=== PATIENT | female | born 1965 | race Caucasian/White ===

== ENCOUNTER → 2016-08-29 | Outpatient (CLI) | payer OTHER ==
--- NOTE | 2016-08-29 14:57 | US ---
EXAMINATION TYPE: US gallbladder DATE OF EXAM: 08/29/2016 2:30 PM COMPARISON: CT in pacs October 20, 2009. CT chest June 01, 2016. CLINICAL HISTORY: Intermittent RUQ and back pain x 4 months, occasional N/V. EXAM MEASUREMENTS: Liver Length: 15.0cm Gallbladder Wall: 0.2cm CBD: 0.3cm Right Kidney: 9.7 x 3.8 x 4.5cm TECHNOLOGIST IMPRESSION: Pancreas: visualized portions wnl, body and tail obscured by overlying bowel gas Liver: 1.5 x 1.2 x 1.6cm hyperechoic area anterior right lobe with minimal vascularity possible david ngioma though not definitively seen on old CTs Gallbladder: Small shadowing mobile gallstones or gallbladder sludge. Evidence for sonographic Bernard's sign: yes CBD: wnl Right Kidney: wnl IMPRESSION: 1. Small stones and/or gallbladder sludge without convincing secondary ultrasound evidence for acute cholecystitis however in patient with right upper quadrant pain and positive sonographic Bernard sign cannot be entirely excluded. Consider HIDA scan correlation. 2. There is 1.6 cm hyperechoic lesion right hepatic lobe, suspect probable hemangioma, consider follo w-up liver protocol contrast enhanced CT or MRI to confirm.
== END ==
LOC: RADUSWWP 13:53
PROVIDERS: ATTEND Surgery Plastic and Reconstructive Surgery
DX: K80.80 Other cholelithiasis without obstruction (principal); K76.9 Liver disease, unspecified
CPT/HCPCS: 76705

== ENCOUNTER → 2016-09-06 | Outpatient (CLI) | payer OTHER ==
--- NOTE | 2016-09-17 19:48 | P.PN ---
Progress Note - Text DATE OF SERVICE: 09/06/2016 CHIEF COMPLAINT: Follow-up sleeve gastrectomy. HISTORY OF PRESENT ILLNESS: Josefina Bird is a 50-year-old female who is status post sleeve gastrectomy on 04/05/2016. She is approximately 5 months out. Upon her last evaluation she came in with presenting weight of 160 pounds. Today she comes in weighing 157 pounds. Prior to surgery she had weighed 201 pounds. Today she comes in with a 44 pound weight loss. [place] body weight of 135 pounds. Body mass index reduced from 36.8 down to 28.8. Percent excess weight loss achieved is already 67%. She reports troubles with pain along the right upper quadrant including chronic nausea. She is planning a trip in the next one to two weeks in terms of cruise. Separately, she is also due for colonoscopy with multiple colon polyps. Now she presents for further evaluation and management. She is stable with chronic obstructive pulmonary disease including osteoarthritis of the joints and lower back. PAST MEDICAL HISTORY: 1. Obstructive sleep apnea. 2. Gastroesophageal reflux disease. 3. History of hiatal hernia. 4. Carpal tunnel syndrome. 5. Diabetes type 2. 6. Hypothyroidism. 7. Chronic obstructive pulmonary disease. 8. Anxiety. 9. Colon polyps. 10. Sleep apnea. PAST SURGICAL HISTORY: 1. Uterine ablation. 2. Left carpal tunnel release. 3. Bilateral breast reduction. 4. Upper endoscopy. 5. Lower endoscopy. 6. Status post sleeve gastrectomy. MEDICATIONS: 1. Imitrex. 2. Zantac. 3. Omeprazole. 4. Multivitamin. 5. Magnesium oxide. 6. Synthroid. 7. Breo Ellipta. 8. Calcium citrate. 9. Albuterol sulfate. 10. Ventolin nebulizer. 11. Tudorza. 12. Xanax. ALLERGIES: Denies. SOCIAL HISTORY: Former tobacco user. FAMILY HISTORY: Pertinent for morbid obesity in her mother. Also no reports of Crohn's disease or ulcerative colitis. Denies any family history of gastrointestinal cancers. She has a mother who has morbid obesity. REVIEW OF SYSTEMS: CONSTITUTIONAL: [place] body weight for her 5 foot 2 frame is 135 pounds. Highest weight of 201 pound. Initial body mass index of 36.8 down to 28.8. Total weight loss of 44 pounds. Percent excess weight loss of 67%. GASTROINTESTINAL: Still reports gastroesophageal reflux disease including fatty food intolerance. Has intermittent constipation, now controlled. CARDIOVASCULAR: History of hypertension. RESPIRATORY: History of chronic obstructive pulmonary disease. She is still on moderate medications. ENDOCRINE: Resolved diabetes type 2. No reports of hypothyroidism. NEURO: History of migraine headaches. HEENT: Denies any troubles with vision or hearing. GENITOURINARY: History of endometrial ablation. MUSCULOSKELETAL: Reports osteoarthritis of the in the lower back and hips secondary to morbid obesity. NEURO: No reports of stroke or seizure disorders. PSYCH: History of anxiety and depression. HEMATOLOGIC: Denies any easy bruising and bleeding or prior venous thromboembolic event. PHYSICAL EXAM: VITAL SIGNS: 98.3, 75, 147/78, 16, 5 foot 2, 157 pounds. Body mass is 28.8. ABDOMEN: Soft, tenderness noted along the right upper quadrant. No peritonitis. No palpable incisional hernias. MUSCULOSKELETAL: No clubbing, cyanosis, or edema. GENERAL: Well-developed female in no acute distress. HEENT: No sclera icterus. Extraocular movements grossly intact. Moist buccal mucosa. Head is atraumatic, normocephalic. Hears conversational speech. No nasal drainage. NECK: Supple without lymphadenopathy. No JV distention. CHEST: Non-labored respirations and equal bilateral excursions. CARDIOVASCULAR: Regular rate and rhythm. Palpable 2+ radial pulses. NEUROLOGIC: No focal or lateralizing signs. PSYCH: Appropriate affect. Alert and oriented to person, place and time. STUDIES: Ultrasound of the abdomen was reviewed, consistent with gallstones. LABS: Previous bariatric metabolic panel was reviewed. Hemoglobin normal at 13.9. Carbon dioxide is up at 31. Glucose was normal at 97. Hemoglobin A1c was normal at 5%. LDL was slightly elevated at 101. Vitamin A was low at 37. Thiamine deficiency had resolved. Trace elements within normal limits. ASSESSMENT: 1. Morbid obesity due to excess calories. 2. Body mass index reduced from 36.8 down to 28.8. 3. Status post sleeve gastrectomy. 4. History of thiamine deficiency resolved. 5. Vitamin A deficiency. 6. Symptomatic cholelithiasis. 7. Gastroesophageal reflux disease. 8. Personal history of colon polyps. 9. Right upper quadrant abdominal pain. 10. Chronic nausea. PLAN: 1. Recommend laparoscopic cholecystectomy with possible open technique. Benefits and risks were described including bleeding, infection, injury to the biliary tree. 2. Separately, she is also due for colonoscopy for multiple tubular adenomas. I have recommended her completing colonoscopy prior to her cholecystectomy as abdominal gas bloat may be more challenging after her gallbladder surgery. 3. I have gone over food guidelines whereby low fat foods are advised just to minimize any risk for cholecystitis as she is going on her cruise. 4. Vitamin A supplement was written on her behalf. 5. Recommend multivitamins as thiamine deficiency is now resolved.
== END | disposition home or self-care (01) ==
CPT/HCPCS: 97803; G0463; 99211

== ENCOUNTER → 2016-12-27 | Outpatient (CLI) | payer OTHER ==
[2016-12-27 14:33] VITALS: BP 113/87; PULSE 68; RESP 16; TEMP 97.8; BMI 28.5
[2016-12-27 15:35] LABS: CHCM 33.1; HCT 40.9 % (34.0-46.0); HDW 2.36; HGB 13.6 gm/dL (11.4-16.0); MCH 30.1 pg (25.0-35.0); MCHC 33.1 g/dL (31.0-37.0); MCV 90.8 fL (80.0-100.0); Mean Platelet Volume 6.5; RBC 4.51 m/uL (3.80-5.40); RDW 12.9 % (11.5-15.5); WBC 5.1 k/uL (3.8-10.6)
[2016-12-27 15:48] LABS: Partial Thromboplastin Time 24.3 sec (22.0-30.0); Prothrombin Time 10.2 sec (9.0-12.0)
[2016-12-27 15:58] LABS: ALT 26 U/L (9-52); AST 22 U/L (14-36); Alkaline Phosphatase 49 U/L (38-126); Anion Gap 10 mmol/L; Blood Urea Nitrogen 16 mg/dL (7-17); Carbon Dioxide 29 mmol/L (22-30); Chloride 105 mmol/L (98-107); Cholesterol 179 mg/dL (<200); Glucose 90 mg/dL (74-99); HDL Cholesterol 74 mg/dL (40-60); Iron 90 ug/dL (37-170); Magnesium 1.7 mg/dL (1.6-2.3); Non-African American GFR(MDRD) >60 (>60 ml/min/1.73 sqM); Phosphorous 4.3 mg/dL (2.5-4.5); Potassium 4.1 mmol/L (3.5-5.1); Sodium 144 mmol/L (137-145); Total Bilirubin 0.7 mg/dL (0.2-1.3); Total Protein 7.2 g/dL (6.3-8.2); Triglycerides 85 mg/dL (<150)
[2016-12-27 16:13] LABS: % Iron Saturation 28.9 % (20-50); Prealbumin 23 mg/dL (18-36); Total Iron Binding Capacity 311 ug/dL (265-497)
[2016-12-27 17:07] LABS: Vitamin B12 399 pg/mL (239-931)
[2016-12-27 18:22] LABS: Hemoglobin A1C 5.5 % (4.2-6.1)
--- NOTE | 2017-02-15 12:10 | P.PN ---
Progress Note - Text DATE OF SERVICE: 12/27/2016 CHIEF COMPLAINT: History of abdominal pain. HISTORY OF PRESENT ILLNESS: Josefina Bird is a 51-year-old female who is status post sleeve gastrectomy 04/05/2016. She is almost one year out. At present, she is 9 months out. At her initial evaluation, she had weighed as much as 201 pounds. Today she comes in weighing 156 pounds. She has maintained 45 pounds weight loss. Percent excess weight loss 68%. Body mass index reduced from 36.8 down to 28.6. Total point reduction is 8.3. She is only 21 pounds overweight. She has lost 1 pound in 4 months. She reports chronic intermittent abdominal pain. Also reports taking Zantac and Prilosec for the severity of her gastroesophageal reflux disease. She reports resolution of her chronic obstructive pulmonary disease. Now she presents for further evaluation and management. Separately, she reports chronic skin infections for panniculitis. PAST MEDICAL HISTORY: 1. Obstructive sleep apnea. 2. Gastroesophageal reflux disease. 3. History of hiatal hernia. 4. Carpal tunnel syndrome. 5. Diabetes type 2. 6. Hypothyroidism. 7. Chronic obstructive pulmonary disease. 8. Anxiety. 9. Colon polyps. 10. Sleep apnea. PAST SURGICAL HISTORY: 1. Uterine ablation. 2. Left carpal tunnel release. 3. Bilateral breast reduction. 4. Upper endoscopy. 5. Lower endoscopy. 6. Status post sleeve gastrectomy. MEDICATIONS: 1. Imitrex. 2. Synthroid. 3. Zofran. 4. Multivitamin. 5. Loratadine. 6. [place]. 7. Breo Ellipta. 8. ProAir. 9. Albuterol inhaler. 10. Tudorza with Pressair. 11. Zantac. 12. Xanax. 13. Omeprazole. ALLERGIES: Denies. SOCIAL HISTORY: Former tobacco user. FAMILY HISTORY: Pertinent for morbid obesity in her mother. Also no reports of Crohn's disease or ulcerative colitis. Denies any family history of gastrointestinal cancers. She has a mother who has morbid obesity. REVIEW OF SYSTEMS: CONSTITUTIONAL: Total weight loss 45 pounds. She has achieved 68% excess weight loss. Body mass index reduced from 36.8 down to 28.6. At her initial evaluation, she had weighed as much as 201 pounds. Today she comes in weighing 156 pounds. Total point reduction is 8.3. She is only 21 pounds overweight. She has lost 1 pound in 4 months. GASTROINTESTINAL: Reports worsening right upper quadrant abdominal pain with fatty greasy foods. No reports of dumping syndrome. She reports gastroesophageal reflux disease. ENDOCRINE: Improved insulin resistance. She is no longer on medications for diabetic control. CARDIOVASCULAR: History of hypertension. RESPIRATORY: History of chronic obstructive pulmonary disease. She is still on moderate medications. NEURO: History of migraine headaches. HEENT: Denies any troubles with vision or hearing. GENITOURINARY: History of endometrial ablation. MUSCULOSKELETAL: Reports osteoarthritis of the in the lower back and hips secondary to morbid obesity. NEURO: No reports of stroke or seizure disorders. PSYCH: History of anxiety and depression. HEMATOLOGIC: Denies any easy bruising and bleeding or prior venous thromboembolic event. PHYSICAL EXAM: VITAL SIGNS: 97.8, 68, 16, 113/87, 5 foot 2, 156 pounds. Body mass index 28.6. ABDOMEN: Focal tenderness along the right upper quadrant. No diffuse peritonitis. No palpable incisional hernias. MUSCULOSKELETAL: No clubbing, cyanosis, or edema. GENERAL: Well-developed female in no acute distress. HEENT: No sclera icterus. Extraocular movements grossly intact. Moist buccal mucosa. Head is atraumatic, normocephalic. Hears conversational speech. No nasal drainage. NECK: Supple without lymphadenopathy. No JV distention. CHEST: Non-labored respirations and equal bilateral excursions. CARDIOVASCULAR: Regular rate and rhythm. Palpable 2+ radial pulses. NEUROLOGIC: No focal or lateralizing signs. PSYCH: Appropriate affect. Alert and oriented to person, place and time. LABS: White count normal at 5.1. Hemoglobin normal at 13.6. Iron normal at 90. Magnesium low 1.7. HDL elevated at 74. Hemoglobin A1c, now improved from 6.4 down to 5.5. Vitamin D low at 28. Sodium elevated at 187. The rest of her bariatric metabolic panel was within normal limits. STUDIES: Ultrasound of the gallbladder was reviewed, consistent with multiple gallstones. ASSESSMENT: 1. Previous history of morbid obesity. 2. Body mass index reduced from 36.8 down to 28.6. 3. Status post sleeve gastrectomy. 4. Right upper quadrant abdominal pain. 5. Symptomatic gallstones. 6. Insulin resistant diabetes type 2, resolved. 7. Vitamin D deficiency. 8. Selenium excess. 9. Gastroesophageal reflux disease. PLAN: 1. She has completed bariatric metabolic panel with findings including vitamin D deficiency. Recommend a vitamin D supplement 1000 units daily. 2. She has elevated selenium for which selenium food sources were reviewed. Recommend decrease selenium as this may also affect her thyroid metabolism. 3. She has symptomatic gallstones for which cholecystectomy was advised. Robotic approach with laparoscopic approach was also reviewed. 4. Will need at least 1 to 2 week recovery following her gallbladder removal. 5. In the interim, recommend a low-fat diet.
== END | disposition home or self-care (01) ==
LOC: BARWHC3 13:54
PROVIDERS: ATTEND Surgery Plastic and Reconstructive Surgery
DX: Z48.815 Encounter for surgical aftercare following surgery on the digestive system (principal); E66.01 Morbid (severe) obesity due to excess calories; Z68.28 Body mass index [BMI] 28.0-28.9, adult; E21.1 Secondary hyperparathyroidism, not elsewhere classified; E89.1 Postprocedural hypoinsulinemia; D50.8 Other iron deficiency anemias; E44.0 Moderate protein-calorie malnutrition; E55.9 Vitamin D deficiency, unspecified; Z98.84 Bariatric surgery status; K74.1 Hepatic sclerosis; N19 Unspecified kidney failure; K50.90 Crohn's disease, unspecified, without complications
CPT/HCPCS: 84255; 84134; 84425; 84481; 80061; 80053; 84443; 82607; 82728; 83036; 82525; 82746; 83540; 83550; 83735; 84100; 84436; 84590; 84630; 85027; 85610; 85730; 84480; 82306; 83970; 36415; G0463; 99211

== ENCOUNTER 2017-01-29 06:34 | Day surgery (SDC) | payer OTHER ==
[2017-01-25 10:54] VITALS: BMI 28.3
[~2017-01-29 06:34] MED LIST: ACETAMINOPHEN IV (For NPO) 1,000 MG in EMPTY BAG 1 BAG IVPB ONE; DEXAMETHASONE SOD PHOSPHATE 10 MG/ML 1 ML VIAL IV ONE; HEPARIN SODIUM,PORCINE 5,000 UNIT/ML 1 ML VIAL SQ ONE; HYDROmorphone 1 MG/ML 1 ML SYRINGE IVP PRN; LACTATED RINGERS 1,000 ML IV SCH; MIDAZOLAM 2 MG/2 ML VIAL IV PRN; ONDANSETRON 4 MG/2 ML VIAL IVP ONE; SCOPOLAMINE 1.5MG/72HR PATCH TRANSDERM ONE
--- NOTE | 2017-01-29 06:42 | P.GSHP ---
History of Present Illness H&P Date: 01/29/17 CHIEF COMPLAINT: Cholecystitis HISTORY OF PRESENT ILLNESS: The patient is a 51-year-old female who presents with history of epigastric including right upper quadrant abdominal pain. She underwent diagnostic studies for her gallbladder. Separately her clinical picture was consistent with cholecystitis. Now she presents for surgical intervention. PAST MEDICAL HISTORY: Please see list PAST SURGICAL HISTORY: Please see list MEDICATIONS: Please see list ALLERGIES: Denies. SOCIAL HISTORY: No illicit drug use or recent tobacco use FAMILY HISTORY: Pertinent for gallbladder disease REVIEW OF ORGAN SYSTEMS: CONSTITUTIONAL: No reports of fevers or chills. HEENT: Denies any troubles with the vision or hearing. PHYSICAL EXAM: VITAL SIGNS: Afebrile vital signs stable GENERAL: Well-developed pleasant in no acute distress. HEENT: No scleral icterus. Extraocular movements grossly intact. Moist buccal mucosa. NECK: Supple without lymphadenopathy. CHEST: Unlabored respirations. Equal bilateral excursions. CARDIOVASCULAR: Regular rate regular rhythm rhythm. Distal 2+ pulses. ABDOMEN: Soft, nondistended. Tender along the epigastrium and right upper quadrant. MUSCULOSKELETAL: No clubbing, cyanosis, or edema. NEURO: Cranial nerves II to XII within normal limits. No focal or lateralizing signs. PSYCH: Alert and oriented to person, place and time. ASSESSMENT: 1. Epigastric and right upper quadrant abdominal pain 2. Chronic cholecystitis 3. Symptomatic gallstones. PLAN: 1. Will need a laparoscopic cholecystectomy possible open. Benefits and risks were described. 2. Heparin for DVT prophylaxis 5000 units. 3. Antibiotic prophylaxis. Past Medical History Past Medical History: COPD, Fibromyalgia, GERD/Reflux, Osteoarthritis (OA), Thyroid Disorder Additional Past Medical History / Comment(s): migraines, stress incontinence, hiatal hernia, Hx of insulin resistance- no problem now. History of Any Multi-Drug Resistant Organisms: None Reported Past Surgical History: Bariatric Surgery, Breast Surgery, Uterine Ablation Additional Past Surgical History / Comment(s): left carpel tunnel, breast reduction, gastric sleeve on 03/2016 Past Anesthesia/Blood Transfusion Reactions: Motion Sickness, Postoperative Nausea & Vomiting (PONV) Past Psychological History: Anxiety Smoking Status: Former smoker Past Alcohol Use History: None Reported Additional Past Alcohol Use History / Comment(s): quit smoking 2011, smoked 1ppd since age of 17- smoked approx 29 years. Past Drug Use History: None Reported - Past Family History Mother Family Medical History: COPD Father Additional Family Medical History / Comment(s): private pilot w/ plane crash- age 23 Medications and Allergies Home Medications Medication Instructions Recorded Confirmed Type ALPRAZolam [Xanax] 0.25 mg PO DAILY PRN 03/31/15 01/25/17 History Levothyroxine Sodium [Synthroid] 37.5 mcg PO HS 11/02/15 01/25/17 History SUMAtriptan SUCCINATE [Imitrex] 100 mg PO DAILY PRN 11/02/15 01/25/17 History Multivitamins, Thera [Multivitamin] 1 tab PO DAILY 06/01/16 01/25/17 History Aclidinium [place] [Tudorza 400 mcg PO BID 01/25/17 01/25/17 History Pressair] Albuterol Nebulizer 1 dose INHALATION Q8HR PRN 01/25/17 01/25/17 History Albuterol Sulfate [Proair Hfa] 1 - 2 puff INHALATION Q6HR PRN 01/25/17 01/25/17 History Biotin 7,500 mcg PO DAILY 01/25/17 01/25/17 History Fluticasone/Vilanterol [Breo 1 dose INHALATION DAILY 01/25/17 01/25/17 History Ellipta 100-25 Mcg Inhaler] Loratadine 10 mg PO DAILY 01/25/17 01/25/17 History Allergies Allergy/AdvReac Type Severity Reaction Status Date / Time latex Allergy states Verified 01/25/17 10:26 "smell feels like chest tightens"
[2017-01-29] MEDS ORDERED: LIDOCAINE 1% 20 ML VIAL (10MG/ML) FOR IV START INTRADERMA ONE (07:07)
[2017-01-29] MEDS ORDERED: ROCURONIUM BROMIDE 10 MG/ML 10 ML VIAL IV ONE (07:33)
[2017-01-29] MEDS ORDERED: MIDAZOLAM 2 MG/2 ML VIAL ONE (07:33)
[2017-01-29] MEDS ORDERED: ACETAMINOPHEN IV (For NPO) 1,000 MG/100 ML VIAL ONE (07:33)
[2017-01-29] MEDS ORDERED: PROPOFOL 10 MG/ML 20 ML VIAL IV ONE (07:33)
[2017-01-29] MEDS ORDERED: LIDOCAINE 1% INJ 10MG/ML (20 ML MDV) ONE (07:33)
[2017-01-29] MEDS ORDERED: GLYCOPYRROLATE 0.2 MG/ML 2 ML VIAL ONE (07:33)
[2017-01-29] MEDS ORDERED: NEOSTIGMINE 1 MG/ML 10 ML VIAL ONE (07:33)
[2017-01-29] MEDS ORDERED: SUCCINYLCHOLINE CHLORIDE 100 MG/5 ML SYR IV ONE (07:33)
[2017-01-29] MEDS ORDERED: fentaNYL (PF) 50 MCG/ML 2 ML AMP ONE (07:33)
[2017-01-29] MEDS: ceFAZolin 2 GM in SODIUM CHLORIDE 0.9% 100 ML IVPB ONE ×2 (07:37→07:44)
[2017-01-29] MEDS ORDERED: BUPIVACAIN-EPI 0.25%-1:200,000 30 ML VIAL SQ ONE ×2 (07:38→07:51)
--- NOTE | 2017-01-29 08:22 | P.OP ---
Date of Procedure: 01/29/17 Preoperative Diagnosis: Postoperative Diagnosis: Procedure(s) Performed: Implants: Indications for Procedure: Operative Findings: Description of Procedure: SURGEON: SENG BHATIA MD COIL TIER: None. PREOPERATIVE DIAGNOSES: 1. Chronic Cholecystitis. 2. Symptomatic gallstones. 3. History of sleeve gastrectomy. 4. History of glucose intolerance with insulin resistance. 5. Chronic obstructive pulmonary disease. POSTOPERATIVE DIAGNOSES: 1. Chronic Cholecystitis. 2. Symptomatic gallstones. 3. History of sleeve gastrectomy. 4. History of glucose intolerance with insulin resistance. 5. Chronic obstructive pulmonary disease. OPERATION: Laparoscopic cholecystectomy ANESTHESIA: General with 30 mL 0.25% Marcaine with epinephrine. ESTIMATED BLOOD LOSS: 5 mL. SPECIMENS REMOVED: Gallbladder. COMPLICATIONS: None. INDICATIONS: The patient is a 51-year-old female who presents with chronic cholelcystitis. Surgical intervention with a laparoscopic cholecystectomy was described at length including injury to the biliary tree, bleeding, infection, need for further surgery. Informed consent was obtained. DESCRIPTION OF THE PROCEDURE: The patient was brought to the operating room, laid in supine position. After general induction, the abdomen was prepped and draped in a standard sterile fashion. Prior to incision, a timeout protocol was confirmed with surgical team regarding patient's name, procedure to be performed including preoperative medications for which she had received heparin 5000 units subcutaneously as well as bilateral SCDs for DVT prophylaxis. A transverse 5 mm incision was made above the umbilicus and off to the right of the midline. Please note the skin was localized prior to incision. A 0 degree 5-mm laparoscopic trocar entry was performed and entered into the peritoneal cavity. Diagnostic laparoscopy confirmed no injury to bowel, viscera or mesentery. The liver serosa was completely unremarkable. Next, two 5 mm trocars were placed along the right costal margin followed by a 11 mm port at the left upper quadrant. The patient was placed in steep reverse Trendelenburg position with the right side up. The gallbladder fundus was retracted over the dome of the liver. Initial attention was brought to the infundibulum which was gently retracted in the inferior lateral approach. Using a Kittner, the cystic duct including the cystic artery was carefully skeletonized. Using a large clip master sheet clerk 3 clips were placed proximally, and 2 clips were placed distally along the cystic duct and then cut. Again care was taken to avoid any injury to the biliary tree as the common bile duct was clearly visualized during this portion of dissection. Next, the cystic artery was clipped twice proximally, once distally and then cauterized. Electro-Bovie cautery was used to remove the gallbladder from the hepatic fossa without decompression of the gallbladder. Hemostasis was checked and found to be adequate. The gallbladder was removed from the abdominal cavity using an Endo Catch bag and passed off for further pathological analysis. All instruments and pneumoperitoneum were removed from the abdominal cavity. The fascial defect was less than 8 mm for the 11-mm port site. The rest of incisions were reapproximated using 4-0 Monocryl in an interrupted subcuticular fashion. A total of 30 mL of 0.25% Marcaine with epinephrine was infiltrated to all wounds for postop analgesia. Dermabond was applied to the skin. At the end of the procedure, needle, sponge, and instrument count was verified correct by surgical training specialist. The patient had tolerated the procedure well and was taken to postanesthesia care unit in stable condition. Intraoperative films were discussed and reviewed with the patient's family who were pleased with the level of care. FINDINGS: 1. Chronic cholecystitis. 2. Unremarkable liver surface. Plan - Discharge Summary New Discharge Prescriptions: No Action ALPRAZolam [Xanax] 0.25 mg PO DAILY PRN PRN Reason: Anxiety SUMAtriptan SUCCINATE [Imitrex] 100 mg PO DAILY PRN PRN Reason: MIGRAINES Levothyroxine Sodium [Synthroid] 37.5 mcg PO HS Multivitamins, Thera [Multivitamin] 1 tab PO DAILY Omeprazole 40 mg PO DAILY #90 capsule.dr Ranitidine HCl [Zantac] 150 mg PO BID #180 tab Albuterol Sulfate [Proair Hfa] 1 - 2 puff INHALATION Q6HR PRN PRN Reason: Shortness Of Breath Aclidinium [place] [Tudorza Pressair] 400 mcg PO BID Loratadine 10 mg PO DAILY Fluticasone/Vilanterol [Breo Ellipta 100-25 Mcg Inhaler] 1 dose INHALATION DAILY Biotin 7,500 mcg PO DAILY Albuterol Nebulizer 1 dose INHALATION Q8HR PRN PRN Reason: Shortness Of Breath Discharge Medication List ALPRAZolam [Xanax] 0.25 mg PO DAILY PRN 03/31/15 [History] Levothyroxine Sodium [Synthroid] 37.5 mcg PO HS 11/02/15 [History] SUMAtriptan SUCCINATE [Imitrex] 100 mg PO DAILY PRN 11/02/15 [History] Multivitamins, Thera [Multivitamin] 1 tab PO DAILY 06/01/16 [History] Omeprazole 40 mg PO DAILY #90 capsule. 12/27/16 [Rx] Ranitidine HCl [Zantac] 150 mg PO BID #180 tab 12/27/16 [Rx] Aclidinium [place] [Tudorza Pressair] 400 mcg PO BID 01/25/17 [History] Albuterol Nebulizer 1 dose INHALATION Q8HR PRN 01/25/17 [History] Albuterol Sulfate [Proair Hfa] 1 - 2 puff INHALATION Q6HR PRN 01/25/17 [History] Biotin 7,500 mcg PO DAILY 01/25/17 [History] Fluticasone/Vilanterol [Breo Ellipta 100-25 Mcg Inhaler] 1 dose INHALATION DAILY 01/25/17 [History] Loratadine 10 mg PO DAILY 01/25/17 [History]
[2017-01-29 08:38] VITALS: RESP 16; TEMP 98.2
[2017-01-29] MEDS ORDERED: LACTATED RINGERS 1,000 ML IV ONE ×2 (08:38→10:22)
[2017-01-29] MEDS ORDERED: ONDANSETRON 4 MG/2 ML VIAL IVP ONE ×2 (08:45→10:13)
[2017-01-29] MEDS ORDERED: METOCLOPRAMIDE 5 MG/ML 2 ML VIAL IVP ONE (08:50)
[2017-01-29] MEDS ORDERED: PROMETHAZINE INJ 25 MG/ML 1 ML VIAL IVPB ONE (09:05)
[2017-01-29 12:41] VITALS: BP 130/64; PULSE 92
== END 2017-01-29 13:03 | disposition home or self-care (01) ==
LOC: OR 06:34
PROVIDERS: ATTEND Surgery Plastic and Reconstructive Surgery
DX: K80.10 Calculus of gallbladder with chronic cholecystitis without obstruction (principal); Z98.84 Bariatric surgery status; J44.9 Chronic obstructive pulmonary disease, unspecified; M79.7 Fibromyalgia; K21.9 Gastro-esophageal reflux disease without esophagitis; M19.90 Unspecified osteoarthritis, unspecified site; E07.9 Disorder of thyroid, unspecified; F41.9 Anxiety disorder, unspecified; G43.909 Migraine, unspecified, not intractable, without status migrainosus; Z79.899 Other long term (current) drug therapy; Z91.040 Latex allergy status; Z87.891 Personal history of nicotine dependence
CPT/HCPCS: 88304; 47562; J2250; J1644; J1100; J2550; J2710; J2765; J0690; J2405; J2001; J3010; J0131; J0330; J2704

== ENCOUNTER → 2017-02-02 | Outpatient (CLI) | payer OTHER ==
[2017-02-02 10:53] VITALS: BP 106/68; PULSE 62; TEMP 97.8; BMI 28.8
--- NOTE | 2017-02-20 22:52 | P.PN ---
Progress Note - Text DATE OF SERVICE: 02/02/2017 CHIEF COMPLAINT: History of abdominal pain. HISTORY OF PRESENT ILLNESS: Josefina Bird is a 51-year-old female who is status post sleeve gastrectomy 04/05/2016. She had developed gallstones and is now postoperative day 4 status post cholecystectomy. She reports right- sided muscle spasm. No reports of left upper abdominal pain. At her initial evaluation, she had weighed as much as 201 pounds. Today she comes in weighing 158 pounds. She has maintained 43 pounds weight loss. Percent excess weight loss 66%. Body mass index reduced from 36.8 down to 28.9. Total point reduction is 8.3. She is 23 pounds overweight. PHYSICAL EXAM: VITAL SIGNS: 5 foot 2, 158 pounds. Body mass index 28.9. ABDOMEN: All incisions clean dry and intact. No left upper quadrant tenderness. Minimal right upper quadrant tenderness. MUSCULOSKELETAL: No clubbing, cyanosis, or edema. GENERAL: Well-developed female in no acute distress. HEENT: No sclera icterus. Extraocular movements grossly intact. Moist buccal mucosa. Head is atraumatic, normocephalic. Hears conversational speech. No nasal drainage. NECK: Supple without lymphadenopathy. No JV distention. CHEST: Non-labored respirations and equal bilateral excursions. CARDIOVASCULAR: Regular rate and rhythm. Palpable 2+ radial pulses. NEUROLOGIC: No focal or lateralizing signs. PSYCH: Appropriate affect. Alert and oriented to person, place and time. ASSESSMENT: 1. Previous history of morbid obesity. 2. Body mass index reduced from 36.8 down to 28.9. 3. Status post sleeve gastrectomy. 4. Status post cholecystectomy. PLAN: 1. Recommend limited lifting no greater than 4 pounds in 2 weeks. 2. Low-fat diet. 3. Follow-up in March 2017 at her one-year anniversary.
== END | disposition home or self-care (01) ==
LOC: BARWHC3 10:02
PROVIDERS: ATTEND Surgery Plastic and Reconstructive Surgery
DX: R10.9 Unspecified abdominal pain (principal); Z90.49 Acquired absence of other specified parts of digestive tract; Z98.84 Bariatric surgery status; Z68.28 Body mass index [BMI] 28.0-28.9, adult
CPT/HCPCS: 99211

== ENCOUNTER 2017-03-25 10:16 | Observation (INO) | payer OTHER ==
[2017-03-25] MEDS ORDERED: ASPIRIN 81 MG CHEW PO STA (10:44)
[2017-03-25] MEDS ORDERED: NITROGLYCERIN OINT 1 INCH/GM PACKET TOPICAL STA (10:44)
--- NOTE | 2017-03-25 10:46 | ED ---
General Adult HPI - General Chief complaint: Chest Pain Stated complaint: CHEST PAIN Time Seen by Provider: 03/25/17 10:30 Source: patient, RN notes reviewed Mode of arrival: wheelchair Limitations: no limitations - History of Present Illness Initial comments: Patient is a pleasant 51-year-old female presenting to the emergency department complaining of chest discomfort. Onset was yesterday evening. Symptoms were worse around 4 AM. Symptoms have been mild since that time. Symptoms are sometimes positional. No shortness of breath. No nausea or diaphoresis. Discomfort is below the left clavicle however there is some radiation to the left shoulder. Discomfort is sharp. - Related Data Home Medications Medication Instructions Recorded Confirmed ALPRAZolam [Xanax] 0.25 - 0.5 mg PO DAILY PRN 03/31/15 03/25/17 Levothyroxine Sodium [Synthroid] 37.5 mcg PO HS 11/02/15 03/25/17 SUMAtriptan SUCCINATE [Imitrex] 100 mg PO DAILY PRN 11/02/15 03/25/17 Multivitamins, Thera [Multivitamin] 1 tab PO DAILY 06/01/16 03/25/17 Aclidinium [place] [Tudorza 400 mcg PO BID 01/25/17 03/25/17 Pressair] Albuterol Sulfate [Proair Hfa] 1 - 2 puff INHALATION RT-Q6H PRN 01/25/17 Biotin 7,500 mcg PO DAILY 01/25/17 03/25/17 Fluticasone/Vilanterol [Breo 1 dose INHALATION RT-DAILY 01/25/17 03/25/17 Ellipta 100-25 Mcg Inhaler] Albuterol Nebulized [Ventolin 2.5 mg INHALATION RT-Q4H PRN 03/25/17 03/25/17 Nebulized] Calcium Carbonate [Calcium] 600 mg PO DAILY 03/25/17 03/25/17 Fluorometholone 0.1% Ophth Mary 1 drops BOTH EYES BID 03/25/17 03/25/17 [Fml] Latanoprost [Xalatan 0.005%] 1 drop BOTH EYES HS 03/25/17 03/25/17 Phentermine HCl [Adipex-P] 18.75 mg PO QAM 03/25/17 03/25/17 Previous Rx's Medication Instructions Recorded Omeprazole 40 mg PO DAILY #90 capsule. 12/27/16 Ranitidine HCl [Zantac] 150 mg PO BID #180 tab 12/27/16 Allergies Allergy/AdvReac Type Severity Reaction Status Date / Time latex AdvReac states Verified 03/25/17 11:16 "smell feels like chest tightens" Review of Systems ROS Statement: Those systems with pertinent positive or pertinent negative responses have been documented in the HPI. ROS Other: All systems not noted in ROS Statement are negative. Constitutional: Denies: fever Eyes: Denies: eye pain ENT: Denies: ear pain Respiratory: Denies: cough, dyspnea Cardiovascular: Reports: chest pain Endocrine: Denies: fatigue Gastrointestinal: Denies: abdominal pain Genitourinary: Denies: dysuria Musculoskeletal: Denies: back pain Skin: Denies: rash Neurological: Denies: weakness Past Medical History Past Medical History: COPD, Fibromyalgia, GERD/Reflux, Osteoarthritis (OA), Thyroid Disorder Additional Past Medical History / Comment(s): migraines, stress incontinence, hiatal hernia, Hx of insulin resistance- no problem now. History of Any Multi-Drug Resistant Organisms: None Reported Past Surgical History: Bariatric Surgery, Breast Surgery, Cholecystectomy, Uterine Ablation Additional Past Surgical History / Comment(s): left carpel tunnel, breast reduction, gastric sleeve on 03/2016 Past Anesthesia/Blood Transfusion Reactions: Motion Sickness, Postoperative Nausea & Vomiting (PONV) Past Psychological History: Anxiety Smoking Status: Former smoker Past Alcohol Use History: None Reported Past Drug Use History: None Reported - Past Family History Mother Family Medical History: COPD Father Additional Family Medical History / Comment(s): facilities flight check pilot w/ plane crash- age 23 General Exam Limitations: no limitations General appearance: alert, in no apparent distress Head exam: Present: atraumatic Eye exam: Present: normal appearance, PERRL ENT exam: Present: normal oropharynx Neck exam: Present: normal inspection Respiratory exam: Present: normal lung sounds bilaterally, chest wall tenderness (Below the left clavicle towards shoulder.) Cardiovascular Exam: Present: regular rate, normal rhythm Expanded Peripheral pulses: 2+: Radial (R), Radial (L), Posterior Tibialis (R), Posterior Tibialis (L) GI/Abdominal exam: Present: soft. Absent: tenderness Extremities exam: Present: normal inspection. Absent: pedal edema, calf tenderness Neurological exam: Present: alert Psychiatric exam: Present: normal affect, normal mood Skin exam: Present: normal color Course Vital Signs 03/25/17 03/25/17 03/25/17 10:18 10:25 11:45 Temperature 97.4 F L Pulse Rate 69 68 64 Respiratory 20 16 Rate Blood Pressure 144/85 142/71 116/77 O2 Sat by Pulse 98 99 Oximetry EKG Findings - EKG Comments: EKG Findings:: Normal sinus rhythm 73. DE 152. QRS 70. QT 376. QTc 414. Normal axis. Normal QRS. No acute ST change. Medical Decision Making - Medical Decision Making Patient reevaluated and resting comfortably in bed. Only minimal discomfort at this time. Patient states she did start to develop a migraine headache which is a chronic problem for her. Patient was provided Imitrex for this. Patient was updated on results. Dr. Olson has been paged for admission for Dr. Coates. - Lab Data Result diagrams: 03/25/17 10:53 03/25/17 10:53 Lab Results 03/25/17 03/25/17 03/25/17 Range/Units 10:53 10:53 10:53 WBC 4.9 (3.8-10.6) k/uL RBC 4.64 (3.80-5.40) m/uL Hgb 13.6 (11.4-16.0) gm/dL Hct 41.6 (34.0-46.0) % MCV 89.7 (80.0-100.0) fL MCH 29.4 (25.0-35.0) pg MCHC 32.7 (31.0-37.0) g/dL RDW 13.8 (11.5-15.5) % Plt Count 251 (150-450) k/uL Neutrophils % 55 % Lymphocytes % 34 % Monocytes % 5 % Eosinophils % 3 % Basophils % 1 % Neutrophils # 2.7 (1.3-7.7) k/uL Lymphocytes # 1.7 (1.0-4.8) k/uL Monocytes # 0.2 (0-1.0) k/uL Eosinophils # 0.2 (0-0.7) k/uL Basophils # 0.0 (0-0.2) k/uL PT (9.0-12.0) sec INR (<1.2) APTT (22.0-30.0) sec D-Dimer (<0.60) mg/L FEU Sodium 144 (137-145) mmol/L Potassium 3.8 (3.5-5.1) mmol/L Chloride 105 (98-107) mmol/L Carbon Dioxide 30 (22-30) mmol/L Anion Gap 9 mmol/L BUN 13 (7-17) mg/dL Creatinine 0.77 (0.52-1.04) mg/dL Est GFR (MDRD) Af Amer >60 (>60 ml/min/1.73 sqM) Est GFR (MDRD) Non-Af >60 (>60 ml/min/1.73 sqM) Glucose 129 H (74-99) mg/dL Calcium 9.5 (8.4-10.2) mg/dL Magnesium 1.5 L (1.6-2.3) mg/dL Total Bilirubin 0.4 (0.2-1.3) mg/dL AST 18 (14-36) U/L ALT 30 (9-52) U/L Alkaline Phosphatase 49 (38-126) U/L Total Creatine Kinase 80 (30-135) U/L CK-MB (CK-2) 0.6 (0.0-2.4) ng/mL CK-MB (CK-2) Rel Index 0.8 Troponin I <0.012 (0.000-0.034) ng/mL Total Protein 6.7 (6.3-8.2) g/dL Albumin 4.1 (3.5-5.0) g/dL 03/25/17 Range/Units 10:53 WBC (3.8-10.6) k/uL RBC (3.80-5.40) m/uL Hgb (11.4-16.0) gm/dL Hct (34.0-46.0) % MCV (80.0-100.0) fL MCH (25.0-35.0) pg MCHC (31.0-37.0) g/dL RDW (11.5-15.5) % Plt Count (150-450) k/uL Neutrophils % % Lymphocytes % % Monocytes % % Eosinophils % % Basophils % % Neutrophils # (1.3-7.7) k/uL Lymphocytes # (1.0-4.8) k/uL Monocytes # (0-1.0) k/uL Eosinophils # (0-0.7) k/uL Basophils # (0-0.2) k/uL PT 10.3 (9.0-12.0) sec INR 1.0 (<1.2) APTT 24.9 (22.0-30.0) sec D-Dimer 0.20 (<0.60) mg/L FEU Sodium (137-145) mmol/L Potassium (3.5-5.1) mmol/L Chloride (98-107) mmol/L Carbon Dioxide (22-30) mmol/L Anion Gap mmol/L BUN (7-17) mg/dL Creatinine (0.52-1.04) mg/dL Est GFR (MDRD) Af Amer (>60 ml/min/1.73 sqM) Est GFR (MDRD) Non-Af (>60 ml/min/1.73 sqM) Glucose (74-99) mg/dL Calcium (8.4-10.2) mg/dL Magnesium (1.6-2.3) mg/dL Total Bilirubin (0.2-1.3) mg/dL AST (14-36) U/L ALT (9-52) U/L Alkaline Phosphatase (38-126) U/L Total Creatine Kinase (30-135) U/L CK-MB (CK-2) (0.0-2.4) ng/mL CK-MB (CK-2) Rel Index Troponin I (0.000-0.034) ng/mL Total Protein (6.3-8.2) g/dL Albumin (3.5-5.0) g/dL - Radiology Data Radiology results: image reviewed (Chest x-ray shows no acute process) Disposition Clinical Impression: Chest pain Disposition: ADMITTED IP TO THIS HOSP Referrals: Favio Gibbons MD [Primary Care Provider] - 1-2 days Decision Time: 12:16
[2017-03-25 11:05] LABS: Basophils % (A) 1 %; CH 29.8; CHCM 33.3; Eosinophils # (A) 0.2 k/uL (0-0.7); Eosinophils % (A) 3 %; HCT 41.6 % (34.0-46.0); HDW 2.24; HGB 13.6 gm/dL (11.4-16.0); Luc % (Auto) 2; Lymphocytes # (A) 1.7 k/uL (1.0-4.8); Lymphocytes % (A) 34 %; MCH 29.4 pg (25.0-35.0); MCHC 32.7 g/dL (31.0-37.0); MCV 89.7 fL (80.0-100.0); Mean Platelet Volume 7.2; Monocytes # (A) 0.2 k/uL (0-1.0); Monocytes % (A) 5 %; Neutrophils # (A) 2.7 k/uL (1.3-7.7); Neutrophils % (A) 55 %; RBC 4.64 m/uL (3.80-5.40); RDW 13.8 % (11.5-15.5); WBC 4.9 k/uL (3.8-10.6); WBC (Perox) 4.79
[2017-03-25 11:15] LABS: Partial Thromboplastin Time 24.9 sec (22.0-30.0); Prothrombin Time 10.3 sec (9.0-12.0)
[2017-03-25 11:17] LABS: ALT 30 U/L (9-52); AST 18 U/L (14-36); Alkaline Phosphatase 49 U/L (38-126); Anion Gap 9 mmol/L; Blood Urea Nitrogen 13 mg/dL (7-17); Calcium 9.5 mg/dL (8.4-10.2); Carbon Dioxide 30 mmol/L (22-30); Chloride 105 mmol/L (98-107); Glucose 129 mg/dL (74-99); Magnesium 1.5 mg/dL (1.6-2.3); Non-African American GFR(MDRD) >60 (>60 ml/min/1.73 sqM); Potassium 3.8 mmol/L (3.5-5.1); Sodium 144 mmol/L (137-145); Total Bilirubin 0.4 mg/dL (0.2-1.3); Total Protein 6.7 g/dL (6.3-8.2)
--- NOTE | 2017-03-25 11:19 | XR ---
EXAMINATION TYPE: XR chest 2V DATE OF EXAM: 03/25/2017 HISTORY: Chest Pain. REFERENCE: Previous study dated 06/01/2016. FINDINGS: The lungs are overinflated. Heart size is upper limits of normal. The lungs are clear. Pleu ral spaces are clear. IMPRESSION: 1. COPD. 2. BORDERLINE CARDIOMEGALY.
[2017-03-25 11:27] LABS: Creatine Kinase 80 U/L (30-135)
[2017-03-25 11:40] LABS: Creatine Kinase MB 0.6 ng/mL (0.0-2.4); Troponin I <0.012 ng/mL (0.000-0.034)
[2017-03-25] MEDS ORDERED: SUMAtriptan SUCCINATE 6 MG/0.5 ML VIAL SQ STA (11:48)
[2017-03-25] MEDS ORDERED: METOCLOPRAMIDE 5 MG/ML 2 ML VIAL IVP STA (11:57)
[2017-03-25] MEDS ORDERED: MAGNESIUM OXIDE 400 MG TAB PO STA (12:05)
[2017-03-25] MEDS ORDERED: NITROGLYCERIN SL TABS 0.4 MG TAB SUBLINGUAL PRN (12:16)
[2017-03-25] MEDS ORDERED: ACETAMINOPHEN TAB 325 MG TAB PO PRN (15:32)
[2017-03-25 15:58] VITALS: BMI 28.3
[2017-03-25] MEDS ORDERED: ALBUTEROL INHALER 60 PUFF/8 GM INHALER INHALATION PRN (16:28)
[2017-03-25] MEDS ORDERED: ALBUTEROL NEBULIZED 2.5 MG/3 ML INHALATION PRN (16:28)
[2017-03-25] MEDS ORDERED: HYDROcodone/APAP 5-325MG 1 EACH TAB PO PRN (16:30)
[2017-03-25] MEDS ORDERED: TEMAZEPAM 15 MG CAP PO PRN (16:30)
[2017-03-25 16:50] LABS: Creatine Kinase 76 U/L (30-135)
[2017-03-25 17:04] LABS: Creatine Kinase MB 0.7 ng/mL (0.0-2.4); Troponin I <0.012 ng/mL (0.000-0.034)
[2017-03-25] MEDS: NITROGLYCERIN OINT 1 INCH/GM PACKET TOPICAL SCH (18:32)
[2017-03-25] MEDS: SUMAtriptan SUCCINATE 50 MG TAB PO PRN (18:53)
[2017-03-25] MEDS: FLUOROMETHOLONE 0.1% OPHTH DROPS 5 ML BTL BOTH EYES SCH (20:03)
[2017-03-25] MEDS: FAMOTIDINE 20 MG TAB PO SCH (20:03)
[2017-03-25] MEDS: TIOTROPIUM 18 MCG/PUFF INHALER INHALATION SCH (21:00)
[2017-03-25] MEDS ORDERED: LEVOTHYROXINE 75 MCG TAB PO SCH (21:00)
[2017-03-25] MEDS ORDERED: LATANOPROST 0.005% OPHTH DROPS 2.5 ML BTL BOTH EYES SCH (21:00)
[2017-03-25] MEDS ORDERED: ONDANSETRON 4 MG/2 ML VIAL IVP PRN (23:01)
[2017-03-26] MEDS: NITROGLYCERIN OINT 1 INCH/GM PACKET TOPICAL SCH ×3 (00:27→12:16)
[2017-03-26 00:34] LABS: Creatine Kinase 74 U/L (30-135)
[2017-03-26 00:48] LABS: Creatine Kinase MB 0.6 ng/mL (0.0-2.4); Troponin I <0.012 ng/mL (0.000-0.034)
[2017-03-26] MEDS ORDERED: PANTOPRAZOLE 40 MG TABLET PO SCH ×2 (07:30)
[2017-03-26 07:35] LABS: Basophils % (A) 1 %; CH 29.5; CHCM 32.7; Eosinophils # (A) 0.2 k/uL (0-0.7); Eosinophils % (A) 4 %; HCT 41.6 % (34.0-46.0); HDW 2.25; HGB 13.1 gm/dL (11.4-16.0); Luc # (Auto) 0.11; Luc % (Auto) 2; Lymphocytes # (A) 2.2 k/uL (1.0-4.8); Lymphocytes % (A) 49 %; MCH 28.6 pg (25.0-35.0); MCHC 31.6 g/dL (31.0-37.0); MCV 90.6 fL (80.0-100.0); Mean Platelet Volume 7.2; Monocytes # (A) 0.3 k/uL (0-1.0); Monocytes % (A) 5 %; Neutrophils # (A) 1.8 k/uL (1.3-7.7); Neutrophils % (A) 39 %; WBC 4.6 k/uL (3.8-10.6)
[2017-03-26] MEDS ORDERED: ALPRAZolam 0.5 MG TAB PO PRN (07:42)
[2017-03-26 07:52] LABS: Anion Gap 8 mmol/L; Blood Urea Nitrogen 13 mg/dL (7-17); Calcium 9.2 mg/dL (8.4-10.2); Carbon Dioxide 30 mmol/L (22-30); Chloride 104 mmol/L (98-107); Cholesterol 150 mg/dL (<200); Glucose 77 mg/dL (74-99); HDL Cholesterol 58 mg/dL (40-60); Non-African American GFR(MDRD) >60 (>60 ml/min/1.73 sqM); Potassium 4.2 mmol/L (3.5-5.1); Sodium 142 mmol/L (137-145)
[2017-03-26] MEDS: TIOTROPIUM 18 MCG/PUFF INHALER INHALATION SCH (07:58)
[2017-03-26] MEDS ORDERED: SYMBICORT 80-4.5 MCG INHALER INHALATION SCH (08:00)
[2017-03-26] MEDS: FAMOTIDINE 20 MG TAB PO SCH (08:26)
[2017-03-26] MEDS: FLUOROMETHOLONE 0.1% OPHTH DROPS 5 ML BTL BOTH EYES SCH (08:26)
[2017-03-26] MEDS ORDERED: MULTIVITAMINS, THERA 1 EACH TAB PO SCH (09:00)
[2017-03-26] MEDS ORDERED: CALCIUM CARBONATE 500 MG CHEWABLE PO SCH (09:00)
[2017-03-26] MEDS ORDERED: BIOTIN 7500 MCG PO SCH (09:00)
[2017-03-26] MEDS ORDERED: ASPIRIN 325 MG TAB PO SCH (09:00)
[2017-03-26] MEDS ORDERED: ALPRAZolam 0.25 MG TAB PO PRN (09:00)
[2017-03-26] MEDS: SUMAtriptan SUCCINATE 50 MG TAB PO PRN (09:01)
[2017-03-26 12:13] VITALS: BP 123/76; PULSE 77; RESP 16; TEMP 97.5
--- NOTE | 2017-03-26 12:15 | ECHOF ---
Referral Reason:chest pain MEASUREMENTS -------- HEIGHT: 157.5 cm WEIGHT: 70.3 kg BP: IVSd: 1.0 cm (0.6 - 1.1) LVIDd: 4.1 cm (3.9 - 5.3) LVPWd: 0.9 cm (0.6 - 1.1) IVSs: 1.4 cm LVIDs: 2.1 cm LVPWs: 1.6 cm Ao Diam: 2.4 cm (2.0 - 3.7) AV Cusp: 1.6 cm (1.5 - 2.6) LA Diam: 2.2 cm (2.7 - 3.8) MV EXCURSION: 14.273 mm (> 18.000) MV EF SLOPE: 94 mm/s (70 - 150) EPSS: 0.3 cm MV E Binh: 0.92 m/s MV DecT: 248 ms MV A Binh: 0.74 m/s MV E/A Ratio: 1.24 RAP: 5.00 mmHg RVSP: 11.07 mmHg FINDINGS -------- Sinus rhythm. This was a technically good study. Left ventricular wall thickness is normal. Overall left ventricular systolic function is normal with, an EF between 55 - 60 %. The right ventricle is normal in size and function. The left atrium is normal in size. The right atrium is normal in size. The aortic valve is trileaflet, and appears structurally normal. No aortic stenosis or regurgitation. The mitral valve leaflets are mildly thickened. There is trace mitral regurgitation. Trace tricuspid regurgitation present. The right ventricular systolic pressure, as measured by Doppler, is 11.07mmHg. Pulmonic valve appears structurally normal. The aortic root size is normal. Normal inferior vena cava with normal inspiratory collapse consistent with estimated right atrial pressure of 5 mmHg. There is a trivial pericardial effusion present. CONCLUSIONS -------- 1. Sinus rhythm. 2. There is trace mitral regurgitation. 3. Trace tricuspid regurgitation present. 4. The right ventricular systolic pressure, as measured by Doppler, is 11.07mmHg. 5. Pulmonic valve appears structurally normal. 6. The aortic root size is normal. 7. Normal inferior vena cava with normal inspiratory collapse consistent with estimated right atrial pressure of 5 mmHg. 8. There is a trivial pericardial effusion present. 9. This was a technically good study. 10. Left ventricular wall thickness is normal. 11. Overall left ventricular systolic function is normal with, an EF between 55 - 60 %. 12. The right ventricle is normal in size and function. 13. The left atrium is normal in size. 14. The right atrium is normal in size. 15. The aortic valve is trileaflet, and appears structurally normal. No aortic stenosis or regurgitation. 16. The mitral valve leaflets are mildly thickened. GARMENT ALTERATION EXAMINER: Purnima Gonzalez RDCS
--- NOTE | 2017-03-26 12:37 | ECHOS ---
Referral Reason:chest pain MEASUREMENTS -------- HEIGHT: 157.5 cm WEIGHT: 70.3 kg BP: 120/50 FINDINGS -------- Utilizing the standard Ayaan protocol the patient was exercised for 7 minutes, seconds, achieving a maximum heart rate of 130 , which is 87 % of predicted maximal heart rate. There was physiologic heart rate and blood pressure response to exercise. Max Heart Rate: 147 % of Max Predicted Heart Rate: 87 Rest Heart Rate: 72 Rest BP: 84/57 Max BP: 155/57 Mets Achieved: 8.1 Sinus rhythm. In response to stress, the ECG showed no ST-T wave changes (see exercise report for details). LV size, wall thickness and systolic function are normal, with an EF of 60%. Echo images were acquired at peak stress which demonstrated appropriate augmentation of all left ventricular segments with slight decrease in cavity size. CONCLUSIONS -------- 1. Sinus rhythm. 2. In response to stress, the ECG showed no ST-T wave changes (see exercise report for details). 3. LV size, wall thickness and systolic function are normal, with an EF of 60%. 4. Echo images were acquired at peak stress which demonstrated appropriate augmentation of all left ventricular segments with slight decrease in cavity size. 5. No 2D echocardiographic evidence of inducible ischemia to achieved workload. FINGER GRIP MACHINE OPERATOR: Tammy Lawton RDCS
--- NOTE | 2017-03-26 13:26 | P.CRDCN ---
History of Present Illness Consult date: 03/26/17 History of present illness: This is a 51-year-old female presented to the emergency department with complaints of left shoulder spasm. She states the discomfort started Sunday evening as a mild twinge under the left clavicle. The pain subsequently intensified and moved into her upper shoulder and down to her mid arm. The pain subsided in the arm and shoulder but remains to the left midclavicular region. The pain is reproducible and positional. She denies dizziness, palpitations, shortness of breath, nausea or vomiting. She states she does have a significant history of migraine headaches and currently has a 7 out of 10 headache. She has a history of smoking, she quit 5 years ago. She also has a history of gastric bypass surgery and COPD. Troponins are negative 3 EKG indicates a normal sinus mechanism. She denies any history of coronary artery disease or [place]. She has never seen a senior international tax manager, does recall having a stress test per her primary care doctor approximately 2 years ago. Review of Systems REVIEW OF SYSTEMS: Patient denies any chest discomfort. No shortness of breath. No diaphoresis. He denies dizziness, blurred vision, double vision. No dyspnea on exertion. Patient denies any stomach discomfort. No nausea, vomiting. No hematochezia. No hematemesis. Denies any black stools or blood in his stools. No syncope. No palpitations. No cough. No recent fever or chills. Denies dysuria or hematuria. No muscle weakness or numbness. Complains of left shoulder pain. Past Medical History Past Medical History: COPD, Fibromyalgia, GERD/Reflux, Osteoarthritis (OA), Thyroid Disorder Additional Past Medical History / Comment(s): migraines, stress incontinence, hiatal hernia, Hx of insulin resistance- no problem now. OA in the knees History of Any Multi-Drug Resistant Organisms: None Reported Past Surgical History: Bariatric Surgery, Breast Surgery, Cholecystectomy, Uterine Ablation Additional Past Surgical History / Comment(s): left carpel tunnel, breast reduction, gastric sleeve on 03/2016 Past Anesthesia/Blood Transfusion Reactions: Motion Sickness, Postoperative Nausea & Vomiting (PONV) Past Psychological History: Anxiety Smoking Status: Former smoker Past Alcohol Use History: None Reported Additional Past Alcohol Use History / Comment(s): quit smoking 2011, smoked 1ppd since age of 17- smoked approx 29 years. Past Drug Use History: None Reported - Past Family History Mother Family Medical History: COPD, Fibromyalgia Additional Family Medical History / Comment(s): emphysema Father Additional Family Medical History / Comment(s): helicopter pilot w/ plane crash- age 23 Medications and Allergies Home Medications Medication Instructions Recorded Confirmed Type ALPRAZolam [Xanax] 0.25 - 0.5 mg PO DAILY PRN 03/31/15 03/25/17 History Levothyroxine Sodium [Synthroid] 37.5 mcg PO HS 11/02/15 03/25/17 History SUMAtriptan SUCCINATE [Imitrex] 100 mg PO DAILY PRN 11/02/15 03/25/17 History Multivitamins, Thera [Multivitamin] 1 tab PO DAILY 06/01/16 03/25/17 History Aclidinium [place] [Tudorza 400 mcg PO BID 01/25/17 03/25/17 History Pressair] Albuterol Sulfate [Proair Hfa] 1 - 2 puff INHALATION RT-Q6H PRN 01/25/17 History Biotin 7,500 mcg PO DAILY 01/25/17 03/25/17 History Fluticasone/Vilanterol [Breo 1 dose INHALATION RT-DAILY 01/25/17 03/25/17 History Ellipta 100-25 Mcg Inhaler] Albuterol Nebulized [Ventolin 2.5 mg INHALATION RT-Q4H PRN 03/25/17 03/25/17 History Nebulized] Calcium Carbonate [Calcium] 600 mg PO DAILY 03/25/17 03/25/17 History Fluorometholone 0.1% Ophth Mary 1 drops BOTH EYES BID 03/25/17 03/25/17 History [Fml] Latanoprost [Xalatan 0.005%] 1 drop BOTH EYES HS 03/25/17 03/25/17 History Phentermine HCl [Adipex-P] 18.75 mg PO QAM 03/25/17 03/25/17 History Allergies Allergy/AdvReac Type Severity Reaction Status Date / Time latex AdvReac states Verified 03/25/17 11:16 "smell feels like chest tightens" Physical Exam Vitals: Vital Signs Temp Pulse Pulse Resp BP BP Pulse Ox 03/26/17 07:38 97.7 F 61 18 110/54 95 03/26/17 04:00 68 16 03/26/17 03:26 98.5 F 83 16 121/64 92 L 03/25/17 23:28 97.7 F 60 16 126/69 98 03/25/17 23:25 64 16 03/25/17 21:01 98 03/25/17 20:00 62 16 03/25/17 19:38 97.7 F 71 16 133/80 96 03/25/17 16:00 97.8 F 67 16 116/78 100 03/25/17 12:55 97.7 F 61 16 120/72 97 03/25/17 12:27 97.1 F L 83 18 128/75 98 03/25/17 11:45 64 16 116/77 99 03/25/17 10:25 68 142/71 03/25/17 10:18 97.4 F L 69 20 144/85 98 Intake and Output 03/25/17 03/26/17 03/26/17 22:59 06:59 14:59 Intake Total 240 Balance 240 Intake: Oral 240 Other: Voiding Method Toilet Toilet # Voids 1 2 GENERAL: This is a 51-year-old female in no apparent distress at the time of my examination. HEENT: Head is atraumatic, normocephalic. Pupils are equal, round. Sclerae anicteric. Conjunctivae are clear. Mucous membranes of the mouth are moist. Neck is supple. There is no jugular venous distention. No carotid bruit is heard. LUNGS: Clear to auscultation and precussion. No chest wall tenderness is noted on palpation or with deep breathing. HEART: Regular rate and rhythm without murmurs, rubs or gallops. S1 and S2 heard. ABDOMEN: Soft, nontender. Bowel sounds are heard. No organomegaly noted. EXTREMITIES: 2+ peripheral pulses with no evidence of peripheral edema and no calf tenderness noted]. NEUROLOGIC: Patient is awake, alert and oriented x3. Results 03/26/17 06:40 03/26/17 06:40 Cardiac Enzymes 03/25/17 03/25/17 03/25/17 Range/Units 10:53 10:53 16:13 AST 18 (14-36) U/L CK-MB (CK-2) 0.6 0.7 (0.0-2.4) ng/mL Troponin I <0.012 <0.012 (0.000-0.034) ng/mL 03/25/17 Range/Units 23:27 AST (14-36) U/L CK-MB (CK-2) 0.6 (0.0-2.4) ng/mL Troponin I <0.012 (0.000-0.034) ng/mL Coagulation 03/25/17 Range/Units 10:53 PT 10.3 (9.0-12.0) sec APTT 24.9 (22.0-30.0) sec Lipids 03/26/17 Range/Units 06:40 Triglycerides 67 (<150) mg/dL Cholesterol 150 (<200) mg/dL HDL Cholesterol 58 (40-60) mg/dL CBC 03/25/17 03/26/17 Range/Units 10:53 06:40 WBC 4.9 4.6 (3.8-10.6) k/uL RBC 4.64 4.60 (3.80-5.40) m/uL Hgb 13.6 13.1 (11.4-16.0) gm/dL Hct 41.6 41.6 (34.0-46.0) % Plt Count 251 246 (150-450) k/uL Comprehensive Metabolic Panel 03/25/17 03/26/17 Range/Units 10:53 06:40 Sodium 144 142 (137-145) mmol/L Potassium 3.8 4.2 (3.5-5.1) mmol/L Chloride 105 104 (98-107) mmol/L Carbon Dioxide 30 30 (22-30) mmol/L BUN 13 13 (7-17) mg/dL Creatinine 0.77 0.89 (0.52-1.04) mg/dL Glucose 129 H 77 (74-99) mg/dL Calcium 9.5 9.2 (8.4-10.2) mg/dL AST 18 (14-36) U/L ALT 30 (9-52) U/L Alkaline Phosphatase 49 (38-126) U/L Total Protein 6.7 (6.3-8.2) g/dL Albumin 4.1 (3.5-5.0) g/dL Current Medications Generic Name Dose Route Start Last Admin Trade Name Freq PRN Reason Stop Dose Admin Acetaminophen 650 mg 03/25/17 15:32 Tylenol Tab PO Q6HR PRN Fever and/ or Pain Hydrocodone Bitart/Acetaminophen 1 each 03/25/17 16:30 03/25/17 22:56 [place] 5-325 PO 1 each Q6HR PRN Administration Pain Albuterol Sulfate 2.5 mg 03/25/17 16:28 Ventolin Nebulized INHALATION RT-Q4H PRN Shortness Of Breath Alprazolam 0.25 mg 03/26/17 09:00 Xanax PO DAILY PRN Mild Anxiety Alprazolam 0.5 mg 03/26/17 07:42 Xanax PO DAILY PRN Moderate Anxiety Aspirin 325 mg 03/26/17 09:00 03/26/17 08:26 Aspirin PO 325 mg DAILY LEONARDO Administration Budesonide/Formoterol Fumarate 2 puff 03/26/17 08:00 03/26/17 07:58 Symbicort 80-4.5 Mcg Inhaler INHALATION Not Given RT-BID LEONARDO Calcium Carbonate/Glycine 500 mg 03/26/17 09:00 03/26/17 08:26 Tums PO 500 mg DAILY LEONARDO Administration Famotidine 20 mg 03/25/17 21:00 03/26/17 08:26 Pepcid PO 20 mg BID LEONARDO Administration Fluorometholone 1 drops 03/25/17 21:00 03/26/17 08:26 Fml BOTH EYES 1 drops BID LEONARDO Administration Latanoprost 1 drops 03/25/17 21:00 03/25/17 20:04 Xalatan 0.005% BOTH EYES 1 drops HS LEONARDO Administration Levothyroxine Sodium 37.5 mcg 03/25/17 21:00 03/25/17 20:03 Synthroid PO 37.5 mcg HS LEONARDO Administration Multivitamins 1 each 03/26/17 09:00 03/26/17 08:26 Theragran PO 1 each DAILY LEONARDO Administration Nitroglycerin 0.5 inch 03/25/17 18:00 03/26/17 05:15 Nitro-Bid Oint TOPICAL Not Given Q6HR [facility] Nitroglycerin 0.4 mg 03/25/17 12:16 Nitrostat SUBLINGUAL Q5M PRN Chest Pain Ondansetron HCl 4 mg 03/25/17 23:01 03/25/17 23:19 Zofran IVP 4 mg Q6HR PRN Administration Nausea And Vomiting Pantoprazole Sodium 40 mg 03/26/17 07:30 03/26/17 08:26 Protonix PO 40 mg [id number] LEONARDO Administration Sumatriptan Succinate 100 mg 03/25/17 16:28 03/25/17 18:53 Imitrex PO 100 mg DAILY PRN Administration MIGRAINES Temazepam 15 mg 03/25/17 16:30 Restoril PO HS PRN Insomnia Tiotropium [place] 1 puff 03/25/17 20:00 03/26/17 07:58 Spiriva INHALATION Not Given RT-DAILY LEONARDO Intake and Output 03/25/17 03/26/17 03/26/17 22:59 06:59 14:59 Intake Total 240 Balance 240 Intake: Oral 240 Other: Voiding Method Toilet Toilet # Voids 1 2 03/26/17 06:40 03/26/17 06:40 - Imaging and Cardiology Stress echo: report reviewed Echo: report reviewed - EKG Interpretation EKG: sinus rhythm, normal QRS, normal ST/T, no acute changes Assessment and Plan Plan: ASSESSMENT 1. Left shoulder pain with radiation into the left arm. 2. Headache. PLAN We will proceed with an echocardiogram and a stress echo. If both of these tests are normal from a cardiac standpoint the patient is stable for discharge home. We suspect her pain to be musculoskeletal in nature. Nurse Practitioner note has been reviewed, I agree with a documented findings and plan of care. Patient was seen and examined.
--- NOTE | 2017-03-26 15:19 | HP ---
DATE OF SERVICE: 03/25/2017 The chief complaints are left-sided chest pain. HISTORY OF PRESENT ILLNESS: This is a 51-year-old woman who was admitted with the past medical history of COPD, fibroma, history of GERD, history of bariatric surgery, being followed by Dr. Gibbons in the outpatient setting, admitted with chest pain. The patient occurred at 4 a.m. today. The pain was initially below the left lateral end of the clavicle which was sharp in character but after sometime feels like a bubble and was not able to get rib of the pain and the patient came to [facility], admitted for further evaluation and treatment. Initial labs are negative. EKG is unremarkable. There is no history of fever, chills or rigors. There is no history of headache , loss of consciousness. The medical history is that of COPD, history of GERD, history of DJD, history of migraine. Medications prior to admission include, home medications are: 1. Zantac 150 mg p.o. b.i.d. 2. Imitrex 100 mg p.o. daily, p.r.n. 3. Adipex-P 18.75 mg p.o q.a.m. 4. Synthroid 37.5 mcg p.o. q.h.s. 5. Breo Ellipta. 6. Multivitamin. 7. Xalatan. 8. Calcium 600 mg. 9. Biotin. 10. ProAir HFA. 11. Tudorza. 12. Xanax. Allergies are LATEX. FAMILY HISTORY: History of COPD in the family. SOCIAL HISTORY: Previous history of smoking, previous history of alcohol intake. REVIEW OF SYSTEMS: ENT: No diminished hearing, no diminished vision. CARDIOVASCULAR SYSTEM: S1, S2, muffled. GI: No nausea. : No dysuria. NERVOUS SYSTEM: No numbness or weakness. MUSCULOSKELETAL: As mentioned earlier. HEMATOLOGY: No history of anemia. ENDOCRINE: No history of diabetes or hypothyroidism. CONSTITUTIONAL: As mentioned earlier. DERMATOLOGY: Negative. PHYSICAL EXAMINATION: The patient is alert and oriented x3. Pulse is 64, blood pressure 116/77, respirations 16, temperature is 97.4, pulse ox 99% on 2 L. HEENT: Conjunctivae normal. NECK: No jugular venous distension. CARDIOVASCULAR SYSTEM: S1, S2, muffled. RESPIRATORY: Breath sounds diminished at the bases, a few scattered rhonchi, no crackles. ABDOMEN: Soft, nontender, no mass palpable. LEGS: No edema, no swelling. NERVOUS SYSTEM: Higher functions as mentioned earlier. Moves all 4 limbs. LYMPHATICS: No lymph node enlargement in the neck, axillae or groin. SKIN: No ulcer, rash, bleeding. Minimal local tenderness in the left upper chest present. Labs are CBC within normal limits and magnesium 1.5. ASSESSMENT: 1. Left-sided chest pain, rule out coronary artery disease. 2. Hypomagnesemia, mild. 3. Chronic obstructive pulmonary disease. 4. Fibromyalgia. 5 Degenerative joint disease. 6. History of migraine. 7. Anxiety. 8. Remote history of nicotine dependence. RECOMMENDATION: This 51-year-old woman presented with multiple complex medical issues. Will monitor the patient closely. Continue with the current medications, continue the symptomatic treatment. Follow with Cardiology consultation. Guarded prognosis because of multiple complex medical issue. Further recommendations to follow. Keep n.p.o. for the stress test in the morning. JESSICA
--- NOTE | 2017-03-26 15:43 | P.DS ---
Providers Date of admission: 03/25/17 12:16 Attending physician: Cheo Olson Consults: 03/25/17 12:16 Consult Physician Urgent Consulting Provider: Na Bonilla Consult Reason/Comments: cp Do you want consulting provider notified?: Yes Primary care physician: Edwige Win [facility] Course: Patient was admitted for left-sided chest pain under the clavicle reproducible [place] skeletal nature. Patient was a valid by cardiology underwent stress test which was negative patient will be discharged today. PHYSICAL EXAMINATION: GENERAL: The patient is alert and oriented x3, not in any acute distress. Well developed, well nourished. HEENT: Pupils are round and equally reacting to light. EOMI. No scleral icterus. No conjunctival pallor. Normocephalic, atraumatic. No pharyngeal erythema. No thyromegaly. CARDIOVASCULAR: S1 and S2 present. No murmurs, rubs, or gallops. PULMONARY: Chest is clear to auscultation, no wheezing or crackles. ABDOMEN: Soft, nontender, nondistended, normoactive bowel sounds. No palpable organomegaly. MUSCULOSKELETAL: No joint swelling or deformity. EXTREMITIES: No cyanosis, clubbing, or pedal edema. NEUROLOGICAL: Gross neurological examination did not reveal any focal deficits. SKIN: No rashes. Plan - Discharge Summary New Discharge Prescriptions: No Action ALPRAZolam [Xanax] 0.25 - 0.5 mg PO DAILY PRN PRN Reason: Anxiety SUMAtriptan SUCCINATE [Imitrex] 100 mg PO DAILY PRN PRN Reason: MIGRAINES Levothyroxine Sodium [Synthroid] 37.5 mcg PO HS Multivitamins, Thera [Multivitamin] 1 tab PO DAILY Omeprazole 40 mg PO DAILY #90 capsule. Ranitidine HCl [Zantac] 150 mg PO BID #180 tab Albuterol Sulfate [Proair Hfa] 1 - 2 puff INHALATION RT-Q6H PRN PRN Reason: Shortness Of Breath Aclidinium [place] [Tudorza Pressair] 400 mcg PO BID Fluticasone/Vilanterol [Breo Ellipta 100-25 Mcg Inhaler] 1 dose INHALATION RT -DAILY Biotin 7,500 mcg PO DAILY Phentermine HCl [Adipex-P] 18.75 mg PO QAM Latanoprost [Xalatan 0.005%] 1 drop BOTH EYES HS Fluorometholone 0.1% Ophth Mary [Fml] 1 drops BOTH EYES BID Albuterol Nebulized [Ventolin Nebulized] 2.5 mg INHALATION RT-Q4H PRN PRN Reason: Shortness Of Breath Calcium Carbonate [Calcium] 600 mg PO DAILY Discharge Medication List ALPRAZolam [Xanax] 0.25 - 0.5 mg PO DAILY PRN 03/31/15 [History] Levothyroxine Sodium [Synthroid] 37.5 mcg PO HS 11/02/15 [History] SUMAtriptan SUCCINATE [Imitrex] 100 mg PO DAILY PRN 11/02/15 [History] Multivitamins, Thera [Multivitamin] 1 tab PO DAILY 06/01/16 [History] Omeprazole 40 mg PO DAILY #90 capsule. 12/27/16 [Rx] Ranitidine HCl [Zantac] 150 mg PO BID #180 tab 12/27/16 [Rx] Aclidinium [place] [Tudorza Pressair] 400 mcg PO BID 01/25/17 [History] Albuterol Sulfate [Proair Hfa] 1 - 2 puff INHALATION RT-Q6H PRN 01/25/17 [ History] Biotin 7,500 mcg PO DAILY 01/25/17 [History] Fluticasone/Vilanterol [Breo Ellipta 100-25 Mcg Inhaler] 1 dose INHALATION RT- DAILY 01/25/17 [History] Albuterol Nebulized [Ventolin Nebulized] 2.5 mg INHALATION RT-Q4H PRN 03/25/17 [ History] Calcium Carbonate [Calcium] 600 mg PO DAILY 03/25/17 [History] Fluorometholone 0.1% Ophth Mary [Fml] 1 drops BOTH EYES BID 03/25/17 [History] Latanoprost [Xalatan 0.005%] 1 drop BOTH EYES HS 03/25/17 [History] Phentermine HCl [Adipex-P] 18.75 mg PO QAM 03/25/17 [History] Follow up Appointment(s)/Referral(s): Favio Gibbons MD [Primary Care Provider] - 3 Days Marlee Carmona MD [STAFF PHYSICIAN] - As Needed Patient Instructions/Handouts: Chest Pain (GEN) Discharge Disposition: HOME SELF-CARE
== END 2017-03-26 14:32 | disposition home or self-care (01) ==
LOC: EC 10:16 → 3OBS 12:16
PROVIDERS: ADMIT Internal Medicine; ATTEND Internal Medicine
DX: R07.89 Other chest pain (principal); E83.42 Hypomagnesemia; M79.7 Fibromyalgia; M25.512 Pain in left shoulder; M19.90 Unspecified osteoarthritis, unspecified site; M17.0 Bilateral primary osteoarthritis of knee; J44.9 Chronic obstructive pulmonary disease, unspecified; G43.909 Migraine, unspecified, not intractable, without status migrainosus; F41.9 Anxiety disorder, unspecified; E07.9 Disorder of thyroid, unspecified; Z79.899 Other long term (current) drug therapy; Z79.51 Long term (current) use of inhaled steroids; Z91.040 Latex allergy status; Z87.891 Personal history of nicotine dependence; Z98.84 Bariatric surgery status
CPT/HCPCS: 99285; 96372; 96374; 96375; 36415; 94760; 93005; 93017; 93306; 93350; 85379; 80061; 80053; 80048; 82550; 82553; 83735 ×2; 84484; 85025 ×2; 85610; 85730; 71020; G0378 ×2; J3030; J2765; J2405

== ENCOUNTER → 2017-04-26 | Outpatient (CLI) | payer OTHER ==
--- NOTE | 2017-05-19 21:14 | P.PN ---
Progress Note - Text DATE OF SERVICE: 04/26/2017 CHIEF COMPLAINT: History of abdominal pain. HISTORY OF PRESENT ILLNESS: Josefina Bird is a 51-year-old female who is status post sleeve gastrectomy 04/05/2016. She is over 1 year out. At her initial evaluation, she had weighed as much as 201 pounds. Today she comes in weighing 153 pounds. She has maintained 48 pounds weight loss. Percent excess weight loss 73 %. Body mass index reduced from 36.8 down to 28.0. She is 18 pounds overweight. She has lost 5 pounds in 4 months. He was recently hospitalized for chest pain and suspected esophageal reflux disease. Her insulin resistance was resolved. Obstructive sleep apnea is resolved. Separately, she has history of multiple tubular adenomas and is due for colonoscopy. PAST MEDICAL HISTORY: 1. Obstructive sleep apnea. 2. Gastroesophageal reflux disease. 3. History of hiatal hernia. 4. Carpal tunnel syndrome. 5. Diabetes type 2. 6. Hypothyroidism. 7. Chronic obstructive pulmonary disease. 8. Anxiety. 9. Colon polyps. 10. Sleep apnea. PAST SURGICAL HISTORY: 1. Uterine ablation. 2. Left carpal tunnel release. 3. Bilateral breast reduction. 4. Upper endoscopy. 5. Lower endoscopy. 6. Status post sleeve gastrectomy. 7. Cholecystectomy. MEDICATIONS: 1. Imitrex. 2. Synthroid. 3. Zofran. 4. Multivitamin. 5. Loratadine. 6. [place]. 7. Breo Ellipta. 8. ProAir. 9. Albuterol inhaler. 10. Tudorza with Pressair. 11. Zantac. 12. Xanax. 13. Omeprazole. ALLERGIES: Denies. SOCIAL HISTORY: Former tobacco user. FAMILY HISTORY: Pertinent for morbid obesity in her mother. Also no reports of Crohn's disease or ulcerative colitis. Denies any family history of gastrointestinal cancers. She has a mother who has morbid obesity. REVIEW OF SYSTEMS: CONSTITUTIONAL: At her initial evaluation, she had weighed as much as 201 pounds. Today she comes in weighing 153 pounds. She has maintained 48 pounds weight loss. Percent excess weight loss 73 %. Body mass index reduced from 36.8 down to 28.0. She is 18 pounds overweight. She has lost 5 pounds in 4 months. Niland body weight 135 pounds for a 5 foot 2 frame. GASTROINTESTINAL: No reports of dumping syndrome. She reports gastroesophageal reflux disease uncontrolled by medications. ENDOCRINE: Improved insulin resistance. She is no longer on medications for diabetic control. CARDIOVASCULAR: History of hypertension. Recent hospitalization for chest pain. RESPIRATORY: History of chronic obstructive pulmonary disease. She is still on moderate medications. Has asthma. NEURO: History of migraine headaches. No strokes. HEENT: Denies any troubles with vision or hearing. GENITOURINARY: History of endometrial ablation. 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 PSYCH: History of anxiety and depression. HEMATOLOGIC: Denies any easy bruising and bleeding or prior venous thromboembolic event. PHYSICAL EXAM: VITAL SIGNS: 5 foot 2, 153 pounds. Body mass index 28.0. Vital Signs Temp 98.1 F 04/26/17 09:15 Pulse 87 04/26/17 09:15 Resp 16 04/26/17 09:15 BP 137/91 04/26/17 09:15 Pulse Ox ABDOMEN: Soft, nontender, nondistended. MUSCULOSKELETAL: No clubbing, cyanosis, or edema. GENERAL: Well-developed female in no acute distress. HEENT: No sclera icterus. Extraocular movements grossly intact. Moist buccal mucosa. Head is atraumatic, normocephalic. Hears conversational speech. No nasal drainage. NECK: Supple without lymphadenopathy. No JV distention. CHEST: Non-labored respirations and equal bilateral excursions. CARDIOVASCULAR: Regular rate and rhythm. Palpable 2+ radial pulses. NEUROLOGIC: No focal or lateralizing signs. Cranial nerves II through XII grossly intact. PSYCH: Appropriate affect. Alert and oriented to person, place and time. SKIN: Well-perfused. Good skin turgor. ASSESSMENT: 1. Previous history of morbid obesity. 2. Body mass index reduced from 36.8 down to 28.0. 3. Status post sleeve gastrectomy. 4. Gastroesophageal reflux disease, uncontrolled. 5. History of tubular adenomas of the colon. PLAN: 1. Despite medications, her esophageal reflux disease is worsening. I started her on Reglan to treat underlying gastroparesis. 2. Recommend upper GI for further evaluation including upper endoscopy. 3. Recommend manometry to about for esophageal dysmotility. 4. Recommend colonoscopy for history of tubular adenomas she is due for surveillance. 5. As a last resort, conversion to a Albert-en-Y gastric bypass to address her reflux disease as an antireflux operation. 6. Follow-up in 1 week for response to therapy.
== END ==
CPT/HCPCS: 99211

== ENCOUNTER 2017-04-30 13:06 | Day surgery (SDC) | payer OTHER ==
[2017-04-27 09:24] VITALS: BMI 27.4
--- NOTE | 2017-04-30 07:51 | P.GSHP ---
History of Present Illness H&P Date: 04/30/17 CHIEF COMPLAINT: GERD and colon screen HISTORY OF PRESENT ILLNESS: The patient is a 51-year-old female who presents reports gastroesophageal reflux disease and need for colon screen. Upper and lower endoscopy were offered for further evaluation and management. PAST MEDICAL HISTORY: Please see list. PAST SURGICAL HISTORY: Please see list. MEDICATIONS: Please see list. ALLERGIES: Please see list. SOCIAL HISTORY: No illicit drug use FAMILY HISTORY: No reports of Crohn disease or ulcerative colitis. REVIEW OF ORGAN SYSTEMS: CONSTITUTIONAL: No reports of fevers or chills. GI: Denies any blood in stools or constipation. PHYSICAL EXAM: VITAL SIGNS: Stable GENERAL: Well-developed pleasant in no acute distress. HEENT: No scleral icterus. Extraocular movements grossly intact. Moist buccal mucosa. NECK: Supple without lymphadenopathy. CHEST: Unlabored respirations. Equal bilateral excursions. CARDIOVASCULAR: Regular rate and rhythm. Distal 2+ pulses. ABDOMEN: Soft, nondistended. MUSCULOSKELETAL: No clubbing, cyanosis, or edema. ASSESSMENT: 1. Gastroesophageal reflux disease 2. Colon screen. PLAN: 1. Recommend proceeding with an upper and lower endoscopy Past Medical History Past Medical History: Chest Pain / Angina, COPD, GERD/Reflux, Pneumonia, Thyroid Disorder Additional Past Medical History / Comment(s): migraines, hiatal hernia, Hx of insulin resistance- no problem now. had episode of chest pain-testing neg per pt , "borderline sleep apnea", hiatal hernia, History of Any Multi-Drug Resistant Organisms: None Reported Past Surgical History: Bariatric Surgery, Breast Surgery, Cholecystectomy, Uterine Ablation Additional Past Surgical History / Comment(s): left carpel tunnel, breast reduction, gastric sleeve on 03/2016 Past Anesthesia/Blood Transfusion Reactions: Motion Sickness, Postoperative Nausea & Vomiting (PONV) Smoking Status: Former smoker - Past Family History Mother Family Medical History: No Reported History Additional Family Medical History / Comment(s): . Father Additional Family Medical History / Comment(s): gauntlet pairer w/ plane crash- age 23 Medications and Allergies Home Medications Medication Instructions Recorded Confirmed Type ALPRAZolam [Xanax] 0.25 - 0.5 mg PO DAILY PRN 03/31/15 04/27/17 History Levothyroxine Sodium [Synthroid] 37.5 mcg PO HS 11/02/15 04/27/17 History SUMAtriptan SUCCINATE [Imitrex] 100 mg PO DAILY PRN 11/02/15 04/27/17 History Multivitamins, Thera [Multivitamin] 1 tab PO DAILY 06/01/16 04/27/17 History Omeprazole 40 mg PO DAILY #90 capsule. 12/27/16 04/27/17 Rx Ranitidine HCl [Zantac] 150 mg PO BID #180 tab 12/27/16 04/27/17 Rx Aclidinium [place] [Tudorza 400 mcg PO BID PRN 01/25/17 04/27/17 History Pressair] Albuterol Sulfate [Proair Hfa] 1 - 2 puff INHALATION Q6HR PRN 01/25/17 04/27/17 History Fluticasone/Vilanterol [Breo 1 dose INHALATION DAILY PRN 01/25/17 04/27/17 History Ellipta 100-25 Mcg Inhaler] Albuterol Nebulized [Ventolin 2.5 mg INHALATION Q4HR PRN 03/25/17 04/27/17 History Nebulized] Calcium Carbonate [Calcium] 600 mg PO DAILY 03/25/17 04/27/17 History Fluorometholone 0.1% Ophth Mary 1 drops BOTH EYES BID 03/25/17 04/27/17 History [Fml] Latanoprost [Xalatan 0.005%] 1 drop BOTH EYES HS 03/25/17 04/27/17 History Metoclopramide [Reglan] 10 mg PO ACHS #20 tab 04/26/17 04/27/17 Rx Allergies Allergy/AdvReac Type Severity Reaction Status Date / Time latex AdvReac states Verified 04/27/17 09:12 "smell feels like chest tightens"
[~2017-04-30 13:06] MED LIST changes: -ACETAMINOPHEN IV (For NPO) 1,000 MG in EMPTY BAG 1 BAG IVPB ONE; -DEXAMETHASONE SOD PHOSPHATE 10 MG/ML 1 ML VIAL IV ONE; -HEPARIN SODIUM,PORCINE 5,000 UNIT/ML 1 ML VIAL SQ ONE; -HYDROmorphone 1 MG/ML 1 ML SYRINGE IVP PRN; -MIDAZOLAM 2 MG/2 ML VIAL IV PRN; -ONDANSETRON 4 MG/2 ML VIAL IVP ONE; -SCOPOLAMINE 1.5MG/72HR PATCH TRANSDERM ONE
[2017-04-30 13:27] VITALS: RESP 16; TEMP 97.6
[2017-04-30] MEDS ORDERED: LIDOCAINE 1% INJ 10MG/ML (20 ML MDV) ONE (16:17)
[2017-04-30] MEDS ORDERED: PROPOFOL 10 MG/ML 20 ML VIAL IV ONE (16:17)
[2017-04-30] MEDS ORDERED: GLYCOPYRROLATE 0.2 MG/ML 2 ML VIAL ONE (16:17)
[2017-04-30 17:01] VITALS: PULSE 73
[2017-04-30 17:20] VITALS: BP 136/88
--- NOTE | 2017-05-08 21:58 | P.PCN ---
Date of Procedure: 04/30/17 Description of Procedure: PREOPERATIVE DIAGNOSIS: Status post sleeve gastrectomy. Gastroesophageal reflux disease. Epigastric abdominal pain. POSTOPERATIVE DIAGNOSIS: Status post sleeve gastrectomy. Gastroesophageal reflux disease. Epigastric abdominal pain. Erosive esophagitis, chronic. Diaphragmatic hiatal hernia without obstruction. Chronic superficial gastritis. OPERATION: Esophagogastroduodenoscopy with cold forceps biopsies along the antrum. SURGEON: Nu Stewart MD ANESTHESIA: MAC. INDICATIONS: The patient is a 51-year-old female who presents with a history of sleeve gastrectomy with abdominal pain. Benefits and risks of the procedure were described. Informed consent was obtained. DESCRIPTION: The patient was brought into the endoscopy suite and laid in the left lateral decubitus position. An Olympus gastroscope was passed along the posterior oropharynx down to the distal esophagus where the squamocolumnar junction was at 30 centimeters from the incisors remarkable for chronic erosive esophagitis, LA grade A without ulceration. The stomach was entered where she had a 3-cm hiatal hernia with a diaphragmatic hiatus found at 33 cm. The sleeve reservoir was within normal limits. Chronic gastritis albeit mild was found along the antrum with cold biopsies obtained. The first through third portion of the duodenum was examined and unremarkable. The stomach was desufflated. The patient tolerated the procedure well. FINDINGS: No acute ulceration found along her sleeve. No corkscrewing sleeve gastrectomy. Squamocolumnar junction at 30 cm from the incisors. Diaphragmatic hiatus at 33 cm. Sleeve gastric reservoir within normal limits. Hiatal hernia 3 cm, fixed. LA grade A erosive esophagitis. No active duodenitis. Chronic gastritis. RECOMMENDATIONS: Upper endoscopy as needed. May benefit from antireflux operation. Continue with current therapy.
--- NOTE | 2017-05-08 22:02 | P.PCN ---
Date of Procedure: 04/30/17 Description of Procedure: PREOPERATIVE DIAGNOSIS: Colonoscopy screening. Personal history of colon polyps. POSTOPERATIVE DIAGNOSIS: Colonoscopy screening. Personal history of colon polyps. Multiple tubular adenomas throughout the colon. OPERATION: Colonoscopy to the ileocecal valve and appendiceal orifice. Colonoscopy with multiple snare biopsies. Colonoscopy with multiple cold forceps biopsies. SURGEON: Nu Stewart MD. ANESTHESIA: MAC. INDICATIONS: The patient is a 51-year-old female who presents for colonoscopy screening. Benefits and risks were described and informed consent was obtained. DESCRIPTION OF PROCEDURE: The patient had undergone Gatorade, MiraLAX and Dulcolax prep. She had been brought into the operating room and laid in the left lateral decubitus position. After adequate intravenous sedation, the rectum was examined with 2% lidocaine jelly. No large external hemorrhoids were encountered. The rectal tone was within normal limits. No lesions were palpated in the rectal vault. An Olympus colonoscope was advanced until the ileocecal valve and appendiceal orifice were clearly viewed. The prep was fair with visualization of the mucosal folds. The scope was removed with visualization of each mucosal fold. No scattered diverticulosis was encountered. Multiple colonic polyps were found and cold forcep biopsy or snare polypectomy. No evidence of focal colitis was found. Retroflexion of the scope demonstrated grade 1 internal hemorrhoids without active bleeding or inflammation. The colon was desufflated. The patient had tolerated the procedure well. Withdrawal time was over 6 minutes. FINDINGS: Internal hemorrhoids, grade 1 No large external hemorrhoids. No arteriovenous malformations. Removal of 5 polyps from the sigmoid and descending colon: - Snare polypectomy 40 cm from the anal verge, 2 - 4 mm flat villous adenoma polyp. - Cold forceps biopsy ar 30 cm from the anal verge, 3 - 4 mm polyp. No focal colitis. RECOMMENDATIONS: Given severity of tubular adenomas, recommend repeat colonoscopy in 2 years, 2019. Plan - Discharge Summary New Discharge Prescriptions: New Metoclopramide [Reglan] 10 mg PO ACHS #30 tab No Action ALPRAZolam [Xanax] 0.25 - 0.5 mg PO DAILY PRN PRN Reason: Anxiety SUMAtriptan SUCCINATE [Imitrex] 100 mg PO DAILY PRN PRN Reason: MIGRAINES Levothyroxine Sodium [Synthroid] 37.5 mcg PO HS Multivitamins, Thera [Multivitamin] 1 tab PO DAILY Omeprazole 40 mg PO DAILY #90 capsule. Ranitidine HCl [Zantac] 150 mg PO BID #180 tab Albuterol Sulfate [Proair Hfa] 1 - 2 puff INHALATION Q6HR PRN PRN Reason: Shortness Of Breath Aclidinium [place] [Tudorza Pressair] 400 mcg PO BID PRN PRN Reason: Shortness Of Breath Fluticasone/Vilanterol [Breo Ellipta 100-25 Mcg Inhaler] 1 dose INHALATION DAILY PRN PRN Reason: Shortness Of Breath Latanoprost [Xalatan 0.005%] 1 drop BOTH EYES HS Fluorometholone 0.1% Ophth Mary [Fml] 1 drops BOTH EYES BID Albuterol Nebulized [Ventolin Nebulized] 2.5 mg INHALATION Q4HR PRN PRN Reason: Shortness Of Breath Calcium Carbonate [Calcium] 600 mg PO DAILY Metoclopramide [Reglan] 10 mg PO ACHS #20 tab Discharge Medication List ALPRAZolam [Xanax] 0.25 - 0.5 mg PO DAILY PRN 03/31/15 [History] Levothyroxine Sodium [Synthroid] 37.5 mcg PO HS 11/02/15 [History] SUMAtriptan SUCCINATE [Imitrex] 100 mg PO DAILY PRN 11/02/15 [History] Multivitamins, Thera [Multivitamin] 1 tab PO DAILY 06/01/16 [History] Omeprazole 40 mg PO DAILY #90 capsule. 12/27/16 [Rx] Ranitidine HCl [Zantac] 150 mg PO BID #180 tab 12/27/16 [Rx] Aclidinium [place] [Tudorza Pressair] 400 mcg PO BID PRN 01/25/17 [History] Albuterol Sulfate [Proair Hfa] 1 - 2 puff INHALATION Q6HR PRN 01/25/17 [History] Fluticasone/Vilanterol [Breo Ellipta 100-25 Mcg Inhaler] 1 dose INHALATION DAILY PRN 01/25/17 [History] Albuterol Nebulized [Ventolin Nebulized] 2.5 mg INHALATION Q4HR PRN 03/25/17 [ History] Calcium Carbonate [Calcium] 600 mg PO DAILY 03/25/17 [History] Fluorometholone 0.1% Ophth Mary [Fml] 1 drops BOTH EYES BID 03/25/17 [History] Latanoprost [Xalatan 0.005%] 1 drop BOTH EYES HS 03/25/17 [History] Metoclopramide [Reglan] 10 mg PO ACHS #20 tab 04/26/17 [Rx] Metoclopramide [Reglan] 10 mg PO ACHS #30 tab 04/30/17 [Rx] Follow up Appointment(s)/Referral(s): Nu Stewart MD [STAFF PHYSICIAN] - 05/03/17 9:00 am (Bariatric center) Patient Instructions/Handouts: *Surgery [facility] - (Anesthesia) Endoscopy Discharge Instructions, Hiatal Hernia (GEN), Colonoscopy (GEN), Upper Endoscopy (GEN), Colorectal Polyps (GEN) Discharge Disposition: HOME SELF-CARE
== END 2017-04-30 17:38 | disposition home or self-care (01) ==
LOC: ORWHC2ENDO 13:06
PROVIDERS: ATTEND Surgery Plastic and Reconstructive Surgery
DX: Z12.11 Encounter for screening for malignant neoplasm of colon (principal); K63.5 Polyp of colon; K21.0 Gastro-esophageal reflux disease with esophagitis; K29.30 Chronic superficial gastritis without bleeding; K44.9 Diaphragmatic hernia without obstruction or gangrene; K64.0 First degree hemorrhoids; Z86.010 Personal history of colon polyps; Z98.84 Bariatric surgery status; J44.9 Chronic obstructive pulmonary disease, unspecified; E07.9 Disorder of thyroid, unspecified; Z87.891 Personal history of nicotine dependence; Z79.899 Other long term (current) drug therapy; Z91.040 Latex allergy status
CPT/HCPCS: 88305; 88342; 45380; 45385; 43239; J2001; J2704

== ENCOUNTER → 2017-05-02 | Outpatient (CLI) | payer OTHER ==
[2017-05-02 17:37] LABS: CH 28.6; CHCM 32.8; HCT 37.4 % (34.0-46.0); HDW 2.34; HGB 12.6 gm/dL (11.4-16.0); MCH 29.6 pg (25.0-35.0); MCHC 33.7 g/dL (31.0-37.0); MCV 87.8 fL (80.0-100.0); Mean Platelet Volume 6.4; RBC 4.26 m/uL (3.80-5.40); RDW 12.6 % (11.5-15.5); WBC 5.8 k/uL (3.8-10.6)
[2017-05-02 17:49] LABS: Partial Thromboplastin Time 24.4 sec (22.0-30.0); Prothrombin Time 9.9 sec (9.0-12.0)
[2017-05-02 18:09] LABS: ALT 32 U/L (9-52); AST 17 U/L (14-36); Alkaline Phosphatase 58 U/L (38-126); Anion Gap 11 mmol/L; Blood Urea Nitrogen 13 mg/dL (7-17); Calcium 9.6 mg/dL (8.4-10.2); Carbon Dioxide 27 mmol/L (22-30); Chloride 103 mmol/L (98-107); Cholesterol 167 mg/dL (<200); Glucose 91 mg/dL (74-99); HDL Cholesterol 66 mg/dL (40-60); Iron 58 ug/dL (37-170); Magnesium 1.5 mg/dL (1.6-2.3); Non-African American GFR(MDRD) >60 (>60 ml/min/1.73 sqM); Phosphorous 4.3 mg/dL (2.5-4.5); Sodium 141 mmol/L (137-145); Total Bilirubin 0.3 mg/dL (0.2-1.3); Total Protein 6.6 g/dL (6.3-8.2)
[2017-05-02 18:18] LABS: % Iron Saturation 19.8 % (20-50); Total Iron Binding Capacity 293 ug/dL (265-497)
[2017-05-02 18:54] LABS: Vitamin B12 301 pg/mL (239-931)
[2017-05-02 21:11] LABS: Hemoglobin A1C 5.7 % (4.2-6.1)
== END | disposition home or self-care (01) ==
LOC: LABWHC1 17:08
PROVIDERS: ATTEND Surgery Plastic and Reconstructive Surgery
DX: E66.01 Morbid (severe) obesity due to excess calories (principal); E21.1 Secondary hyperparathyroidism, not elsewhere classified; E89.1 Postprocedural hypoinsulinemia; D50.9 Iron deficiency anemia, unspecified; E44.0 Moderate protein-calorie malnutrition; E55.9 Vitamin D deficiency, unspecified; K74.1 Hepatic sclerosis; N19 Unspecified kidney failure; K90.9 Intestinal malabsorption, unspecified; K50.90 Crohn's disease, unspecified, without complications
CPT/HCPCS: 36415; 80053; 80061; 82306; 82525; 82607; 82728; 82746; 83036; 83540; 83550; 83735; 83970; 84100; 84134; 84255; 84425; 84443; 84590; 84630; 85027; 85610; 85730

== ENCOUNTER → 2017-10-10 | Outpatient (CLI) | payer OTHER ==
--- NOTE | 2017-10-10 13:28 | WWHP ---
[facility] - HISTORY AND PHYSICAL DATE OF SERVICE: 10/10/2017 CHIEF COMPLAINT: The patient is here for her routine gynecologic exam and mammogram. HPI: This is a 52-year-old, G8, P2-0-6-2 with an LMP of 2005. The patient has been amenorrheic since her endometrial ablation. She has occasional hot flashes, but these are very infrequent. The patient is without gynecologic complaints and denies any vaginal bleeding. PAST MEDICAL HISTORY: Hypothyroidism, insulin resistance, which improved after her bariatric surgery, gastroesophageal reflux disease, migraine headaches and COPD. MEDICATIONS: 1. Synthroid 37.5 mcg daily. 2. Omeprazole 40 mg daily. 3. Xanax p.r.n. 4. Imitrex 100 mg p.r.n. 5. Albuterol nebulizer p.r.n. 6. Zantac 1 b.i.d. 7. Breo Ellipta inhaler q. day. 8. Incruse inhaler q. day. 9. Vitamin D daily. ALLERGIES: No known drug allergies. PAST SURGICAL HISTORY: Laparoscopic cholecystectomy 03/05, colonoscopy 2015 and 2016, carpal tunnel surgery 1998, breast reduction surgery in 1990, endometrial ablation 2004, gastric sleeve bariatric procedure 2015. PAST BOX BUILDER HISTORY: She has no history of STDs. SOCIAL HISTORY: She quit smoking in 2011 and has 1 to 2 alcohol containing drinks per month. She denies drug use. She is and is not seeing anybody at this time. 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 FAMILY HISTORY: Unchanged from the 2015 H and P. REVIEW OF SYSTEMS: Weight has been stable. She denies respiratory, cardiac or GI problems. PHYSICAL EXAM: Blood pressure 138/78, height 5 feet 3 inches, weight 160 pounds, BMI 28, temperature 96.2, pulse 68. This is a well-developed, well-nourished, white female, who is alert and oriented x3, in no acute distress. HEENT is within normal limits. NECK: Supple without mass or thyromegaly. CHEST AND LUNGS: Clear to auscultation. HEART: Regular rate and rhythm. Breasts are without mass or discharge. There is mild central nipple inversion, which she states is unchanged for many years. The breasts are consistent with previous breast reduction surgery. Axillary exam is negative for adenopathy. BACK: Negative for CVA tenderness. ABDOMEN: Soft, nontender, without palpable masses. PELVIC EXAM: External genitalia reveals mild atrophy without lesions. Cervix and vagina appear normal with minimal atrophy. There is no evidence of prolapse. The uterus is mid position, nongravid size and nontender. There are no palpable adnexal masses or tenderness. Rectovaginal exam is negative for mass or tenderness and is negative for occult blood. EXTREMITIES: Nontender. IMPRESSION: 1. A 52-year-old perimenopausal female with normal gynecologic exam. 2. Amenorrhea secondary to endometrial ablation and possible menopause. PLAN: 1. Pap smear was performed. 2. Self-breast examination was discussed. 3. Screening mammogram will be done today. 4. Osteoporosis prevention was discussed. 5. She will return in one year. MMODL / IJN: [id number] /
--- NOTE | 2017-10-12 08:45 | MM ---
Reason for exam: screening (asymptomatic). Last mammogram was performed 1 year and 2 months ago. History: Patient is postmenopausal. Family history of breast cancer in paternal grandmother and breast cancer in paternal grandfather. Benign excisional biopsy of the left breast, 2001. Reductions of both breasts, 1990. Physical Findings: A clinical breast exam by your physician is recommended on an annual basis and results should be correlated with mammographic findings. MG 3D Screening Mammo W/Cad Bilateral CC and MLO view(s) were taken. Prior study comparison: August 09, 2016, bilateral MG 3d screening mammo w/cad. August 03, 2015, bilateral MG 3d diag mammo w/cad IRISH. There are scattered fibroglandular densities. Stable asymmetries left breast. Scattered benign round and skin calcifications right breast. No significant changes when compared with prior studies. ASSESSMENT: Negative, BI-RAD 1 RECOMMENDATION: Routine screening mammogram of both breasts in 1 year.
== END | disposition home or self-care (01) ==
LOC: WWCWWP 11:28
PROVIDERS: ATTEND Obstetrics & Gynecology
DX: Z12.31 Encounter for screening mammogram for malignant neoplasm of breast (principal)
CPT/HCPCS: 77063; 77067

== ENCOUNTER 2017-11-14 12:13 | Day surgery (SDC) | payer OTHER ==
[2017-11-14 12:54] VITALS: BP 122/77; PULSE 78; RESP 18; TEMP 97.6
--- NOTE | 2017-11-14 14:52 | US ---
EXAMINATION TYPE: US FNA thyroid DATE OF EXAM: 11/14/2017 COMPARISON: NONE HISTORY: Thyroid nodule. Maximal barrier technique was utilized. After informed consent, skin overlying the lesion was locali zed with ultrasound and the overlying skin prepped and draped. Ultrasound was utilized using sterile technique. Lidocaine was used for local anesthesia. Five passes with a 25-gauge needle were made int o the nodule and aspirated specimen was submitted to cytology. Following the procedure hemostasis ac hieved. No immediate complication. The patient discharged in stable condition. IMPRESSION: STATUS POST ULTRASOUND GUIDED FINE NEEDLE ASPIRATION OF THYROID NODULE, PATHOLOGY IS PEND ING. THIS PROCEDURE WAS PERFORMED BY THE UNDERSIGNED.
== END 2017-11-14 14:20 | disposition home or self-care (01) ==
LOC: RADPROMAIN 12:13
PROVIDERS: ATTEND Internal Medicine Endocrinology, Diabetes & Metabolism
DX: E04.1 Nontoxic single thyroid nodule (principal)
CPT/HCPCS: 10022; 76942; 88173; 88305

== ENCOUNTER → 2017-11-21 | Outpatient (CLI) | payer OTHER ==
[2017-11-21 13:21] VITALS: BP 141/91; PULSE 76; RESP 16; TEMP 98.2; BMI 29.2
[2017-11-21 15:02] LABS: HGB 13.5 gm/dL (11.4-16.0); MCH 28.6 pg (25.0-35.0); MCHC 32.8 g/dL (31.0-37.0); MCV 87.1 fL (80.0-100.0); Mean Platelet Volume 6.6; Platelet Count 249 k/uL (150-450); RBC 4.71 m/uL (3.80-5.40); RDW 12.4 % (11.5-15.5); WBC 5.1 k/uL (3.8-10.6)
[2017-11-21 15:11] LABS: ALT 23 U/L (9-52); AST 21 U/L (14-36); Albumin 4.5 g/dL (3.5-5.0); Alkaline Phosphatase 60 U/L (38-126); Anion Gap 13 mmol/L; Blood Urea Nitrogen 15 mg/dL (7-17); Calcium 10.2 mg/dL (8.4-10.2); Carbon Dioxide 32 mmol/L (22-30); Chloride 101 mmol/L (98-107); Cholesterol 204 mg/dL (<200); Glucose 91 mg/dL (74-99); HDL Cholesterol 87 mg/dL (40-60); LDL Cholesterol,Calculated 99 mg/dL (0-99); Magnesium 1.7 mg/dL (1.6-2.3); Phosphorus 4.7 mg/dL (2.5-4.5); Potassium 4.5 mmol/L (3.5-5.1); Sodium 146 mmol/L (137-145); Total Bilirubin 0.6 mg/dL (0.2-1.3); Total Protein 7.4 g/dL (6.3-8.2); Triglycerides 89 mg/dL (<150)
[2017-11-21 15:15] LABS: Partial Thromboplastin Time 24.2 sec (22.0-30.0); Prothrombin Time 9.7 sec (9.0-12.0)
[2017-11-21 19:09] LABS: Iron Saturation 27.64 (12.00-45.00)
[2017-11-21 19:19] LABS: Vitamin D 25 Hydroxy 20.2 ng/mL (30.0-100.0)
[2017-11-21 19:25] LABS: Folate, Serum 10.5 ng/mL
[2017-11-21 19:35] LABS: Parathyroid Hormone Intact 87.9 pg/mL (14.0-72.0)
[2017-11-21 20:47] LABS: Hemoglobin A1C 5.6 % (4.0-6.0)
[2017-11-22 15:49] LABS: Zinc, Serum 100 ug/dL (60-130)
[2017-11-23 05:48] LABS: Vitamin A 48 ug/dL (38-106)
[2017-11-23 09:59] LABS: Vitamin B1 51 ug/L (38-122)
[2017-11-24 18:13] LABS: Selenium 171 mcg/L (63-160)
--- NOTE | 2017-12-14 22:34 | P.PN ---
Subjective Progress Note Date: 11/21/17 DATE OF SERVICE: 11/21/2017 CHIEF COMPLAINT: Status post sleeve gastrectomy HISTORY OF PRESENT ILLNESS: Josefina Bird is a 52-year-old female who is status post sleeve gastrectomy 04/05/2016. She is over 1.5 years out. At her initial evaluation, she had weighed as much as 201 pounds. Today she comes in weighing 160 pounds. She has maintained 41 pounds weight loss. Percent excess weight loss 63 %. Body mass index reduced from 36.8 down to 29.3. She is 25 pounds overweight. She has gained 7 pounds in 7 months. She comes in with complaints of dysphagia. Separately she reports nodule on the thyroid gland. She has pre-existing gastroesophageal reflux disease which is now becoming worse. Given the severity of reflux disease, now she presents for surgical evaluation. PAST MEDICAL HISTORY: 1. Obstructive sleep apnea. 2. Gastroesophageal reflux disease. 3. History of hiatal hernia. 4. Carpal tunnel syndrome. 5. Diabetes type 2. 6. Hypothyroidism. 7. Chronic obstructive pulmonary disease. 8. Anxiety. 9. Colon polyps. 10. Sleep apnea. PAST SURGICAL HISTORY: 1. Uterine ablation. 2. Left carpal tunnel release. 3. Bilateral breast reduction. 4. Upper endoscopy. 5. Lower endoscopy. 6. Status post sleeve gastrectomy. 7. Cholecystectomy. MEDICATIONS: 1. Imitrex. 2. Synthroid. 3. Multivitamin. 4. Incruse Ellipta. 5. ProAir. 6. Calcium 7. Tudorza with Pressair. 8. Zantac. 9. Xanax. 10. Omeprazole. 11. Metformin 12. Provigil 13. Xalantan eye drops 14. Breo Ellipta 15. Fluorometholone ALLERGIES: Denies. SOCIAL HISTORY: Former tobacco user. FAMILY HISTORY: Pertinent for morbid obesity in her mother. Also no reports of Crohn's disease or ulcerative colitis. Denies any family history of gastrointestinal cancers. She has a mother who has morbid obesity. REVIEW OF SYSTEMS: CONSTITUTIONAL: At her initial evaluation, she had weighed as much as 201 pounds. Today she comes in weighing 160 pounds. She has maintained 41 pounds weight loss. Percent excess weight loss 63 %. Body mass index reduced from 36.8 down to 29.3. She is 25 pounds overweight. She has gained 7 pounds in 7 months. GASTROINTESTINAL: No reports of dumping syndrome. She reports gastroesophageal reflux disease uncontrolled by medications. ENDOCRINE: Improved insulin resistance. She is no longer on medications for diabetic control. CARDIOVASCULAR: History of hypertension. RESPIRATORY: History of chronic obstructive pulmonary disease. She is still on moderate medications. Has asthma. NEURO: History of migraine headaches. No strokes. HEENT: Denies any troubles with vision or hearing. GENITOURINARY: History of endometrial ablation. 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 PSYCH: History of anxiety and depression. HEMATOLOGIC: Denies any easy bruising and bleeding or prior venous thromboembolic event. PHYSICAL EXAM: VITAL SIGNS: 5 foot 2, 160 pounds. Body mass index 29.3 Vital Signs Temp 98.2 F 11/21/17 14:06 Pulse 76 11/21/17 14:06 Resp 16 11/21/17 14:06 BP 141/91 11/21/17 14:06 Pulse Ox ABDOMEN: Soft, nontender, nondistended. No incisional hernia. MUSCULOSKELETAL: No clubbing, cyanosis, or edema. GENERAL: Well-developed female in no acute distress. HEENT: No sclera icterus. Extraocular movements grossly intact. Moist buccal mucosa. Head is atraumatic, normocephalic. Hears conversational speech. No nasal drainage. Left thyroid nodule. NECK: Supple without lymphadenopathy. No JV distention. Left thyroid nodule CHEST: Non-labored respirations and equal bilateral excursions. CARDIOVASCULAR: Regular rate and rhythm. Palpable 2+ radial pulses. NEUROLOGIC: No focal or lateralizing signs. Cranial nerves II through XII grossly intact. PSYCH: Appropriate affect. Alert and oriented to person, place and time. SKIN: Well-perfused. Good skin turgor. STUDIES: Ultrasound of thyroid gland consistent with large left thyroid gland over 3 cm. Biopsy indeterminant. ASSESSMENT: 1. Previous history of morbid obesity. 2. Body mass index reduced from 36.8 down to 29.3 3. Status post sleeve gastrectomy. 4. Gastroesophageal reflux disease, uncontrolled. 5. Dysphagia 6. History of colon polyps 7. Left thyroid nodule. PLAN: 1. She has recurrent gastroesophageal reflux disease that is uncontrolled and she poses risk of esophageal dysmotility. Recommend manometry. 2. On exam, she has a palpable thyroid nodule. May benefit from partial thyroidectomy versus total thyroidectomy. 3. Recommend repeat upper endoscopy. May need revision from sleeve gastrectomy to gastric bypass for severity of reflux. 4. Recommend bariatric labs. Laboratory Last Values WBC 5.1 k/uL (3.8-10.6) 11/21/17 14:24 RBC 4.71 m/uL (3.80-5.40) 11/21/17 14:24 Hgb 13.5 gm/dL (11.4-16.0) 11/21/17 14:24 Hct 41.0 % (34.0-46.0) 11/21/17 14:24 MCV 87.1 fL (80.0-100.0) 11/21/17 14:24 MCH 28.6 pg (25.0-35.0) 11/21/17 14:24 MCHC 32.8 g/dL (31.0-37.0) 11/21/17 14:24 RDW 12.4 % (11.5-15.5) 11/21/17 14:24 Plt Count 249 k/uL (150-450) 11/21/17 14:24 PT 9.7 sec (9.0-12.0) 11/21/17 14:24 INR 1.0 (<1.2) 11/21/17 14:24 APTT 24.2 sec (22.0-30.0) 11/21/17 14:24 Sodium 146 mmol/L (137-145) H 11/21/17 14:24 Potassium 4.5 mmol/L (3.5-5.1) 11/21/17 14:24 Chloride 101 mmol/L (98-107) 11/21/17 14:24 Carbon Dioxide 32 mmol/L (22-30) H 11/21/17 14:24 Anion Gap 13 mmol/L 11/21/17 14:24 BUN 15 mg/dL (7-17) 11/21/17 14:24 Creatinine 0.80 mg/dL (0.52-1.04) 11/21/17 14:24 Est GFR (CKD-EPI)AfAm >90 (>60 ml/min/1.73 sqM) 11/21/17 14:24 Est GFR (CKD-EPI)NonAf 85 (>60 ml/min/1.73 sqM) 11/21/17 14:24 Glucose 91 mg/dL (74-99) 11/21/17 14:[address] Glu mg/dL 114 11/21/17 14:24 Hemoglobin A1c 5.6 % (4.0-6.0) 11/21/17 14:24 Calcium 10.2 mg/dL (8.4-10.2) 11/21/17 14:24 Phosphorus 4.7 mg/dL (2.5-4.5) H 11/21/17 14:24 Magnesium 1.7 mg/dL (1.6-2.3) 11/21/17 14:24 Iron 97 ug/dL (50-170) 11/21/17 14:24 TIBC 351 ug/dL (228-460) 11/21/17 14:24 Iron Saturation 27.64 (12.00-45.00) 11/21/17 14:24 Ferritin 42.6 ng/mL (10.0-291.0) 11/21/17 14:24 Total Bilirubin 0.6 mg/dL (0.2-1.3) 11/21/17 14:24 AST 21 U/L (14-36) 11/21/17 14:24 ALT 23 U/L (9-52) 11/21/17 14:24 Alkaline Phosphatase 60 U/L (38-126) 11/21/17 14:24 Total Protein 7.4 g/dL (6.3-8.2) 11/21/17 14:24 Albumin 4.5 g/dL (3.5-5.0) 11/21/17 14:24 Prealbumin 26.0 mg/dL (18.0-42.0) 11/21/17 14:24 Triglycerides 89 mg/dL (<150) 11/21/17 14:24 Cholesterol 204 mg/dL (<200) H 11/21/17 14:24 LDL Cholesterol, Calc 99 mg/dL (0-99) 11/21/17 14:24 HDL Cholesterol 87 mg/dL (40-60) H 11/21/17 14:24 Vitamin A 48 ug/dL (38-106) 11/21/17 14:24 Vitamin B1 51 ug/L (38-122) 11/21/17 14:24 Vitamin B12 386.0 pg/mL (200.0-944.0) 11/21/17 14:24 Vitamin D 25-Hydroxy 20.2 ng/mL (30.0-100.0) L 11/21/17 14:24 Folate 10.5 ng/mL 11/21/17 14:24 TSH 0.952 mIU/L (0.465-4.680) 11/21/17 14:24 PTH Intact 87.9 pg/mL (14.0-72.0) H 11/21/17 14:24 Copper 1164 ug/L (810-1990) 11/21/17 14:24 Selenium 171 mcg/L (63-160) H 11/21/17 14:24 Zinc 100 ug/dL (60-130) 11/21/17 14:24 Cholesterol elevated HDL elevated Vitamin D low PTH elevated Selenium elevated Recommend decrease selenium intake Recommend vitamin D supplement over 5000 units daily Objective - Vital Signs Vital signs: Vital Signs Temp 98.2 F 11/21/17 13:16 Pulse 76 11/21/17 13:16 Resp 16 11/21/17 13:16 BP 141/91 11/21/17 13:16 Pulse Ox Intake & Output 11/20/17 11/21/17 11/21/17 18:59 06:59 18:59 Weight 72.575 kg - Labs CBC & Chem 7: 11/21/17 14:24 11/21/17 14:24
== END | disposition home or self-care (01) ==
LOC: BARWHC3 12:56
PROVIDERS: ATTEND Surgery Plastic and Reconstructive Surgery
DX: Z09 Encounter for follow-up examination after completed treatment for conditions other than malignant neoplasm (principal); E66.01 Morbid (severe) obesity due to excess calories; E04.1 Nontoxic single thyroid nodule; K21.9 Gastro-esophageal reflux disease without esophagitis; G47.33 Obstructive sleep apnea (adult) (pediatric); G56.00 Carpal tunnel syndrome, unspecified upper limb; E21.1 Secondary hyperparathyroidism, not elsewhere classified; D50.9 Iron deficiency anemia, unspecified; K90.9 Intestinal malabsorption, unspecified; E55.9 Vitamin D deficiency, unspecified; K74.1 Hepatic sclerosis; N19 Unspecified kidney failure; K50.90 Crohn's disease, unspecified, without complications; E89.1 Postprocedural hypoinsulinemia; E11.9 Type 2 diabetes mellitus without complications; E03.9 Hypothyroidism, unspecified; J44.9 Chronic obstructive pulmonary disease, unspecified; K44.9 Diaphragmatic hernia without obstruction or gangrene; F41.9 Anxiety disorder, unspecified; Z79.899 Other long term (current) drug therapy; Z68.29 Body mass index [BMI] 29.0-29.9, adult; Z86.010 Personal history of colon polyps; Z79.84 Long term (current) use of oral hypoglycemic drugs; Z98.84 Bariatric surgery status; Z90.49 Acquired absence of other specified parts of digestive tract
CPT/HCPCS: 36415; 80053; 80061; 82306; 82525; 82607; 82728; 82746; 83036; 83540; 83550; 83735; 83970; 84100; 84134; 84255; 84425; 84443; 84590; 84630; 85027; 85610; 85730; 99211

== ENCOUNTER → 2017-12-19 | Day surgery (SDC) | payer OTHER ==
[2017-12-18 09:24] VITALS: BMI 27.8
[2017-12-19 12:04] VITALS: BP 121/86; PULSE 78; RESP 18; TEMP 98.3
--- NOTE | 2018-01-09 10:46 | PCN ---
PROCEDURE NOTE DATE OF PROCEDURE: 12/19/2017 REQUESTING PHYSICIAN: Dr. Stewart. BRIEF HISTORY: The patient is a 52-year-old white female with history of gastrectomy and history of gastroesophageal reflux disease scheduled for esophageal manometry as a part of evaluation of intermittent dysphagia to solids. PROCEDURE PERFORMED: High-resolution impedance manometry. PREOPERATIVE DIAGNOSES: 1. Longstanding history of gastroesophageal reflux disease. 2. History of sleeve gastrectomy. 3. Intermittent dysphagia to solids. PROCEDURE: After informed consent was obtained from the patient, she was brought into the endoscopy unit and manometry was performed by endoscopy nurse, Ami Monterroso and Muna De La Cruz. The manometry probe was passed and was gently advanced into the distal esophagus and stomach. The study was performed with a stationary pull-through technique. Whitlash classification was used to interpret the findings. FINDINGS: 1. Lower esophageal sphincter data: A) Mean IRP (integral residual pressure) 7 mmHg. 2. EGJ phenotype type, type 3. 3. Mean lower esophageal sphincter pressure 25 mmHg. 4. Lower esophageal body: Mean DCI 4310 mmHg, distal latency is normal. Peristalsis is 100%. Bolus transit time with both liquid and viscous is 80%. IMPRESSION: The above findings revealed normal motility pattern involving the esophageal body and normal lower esophageal sphincter pressures. There is no evidence of esophageal dysmotility. MMODL / IJN: [id number] /
== END ==
LOC: ORWHC2ENDO 11:19
PROVIDERS: ATTEND Internal Medicine Gastroenterology
DX: K21.9 Gastro-esophageal reflux disease without esophagitis (principal)
CPT/HCPCS: 91010

== ENCOUNTER → 2018-01-09 | Outpatient (CLI) | payer OTHER ==
--- NOTE | 2018-01-09 13:42 | P.PN ---
Subjective Progress Note Date: 01/09/18 HPI: She comes in from intolerance of her sleeve gastrectomy. Her abdominal pain at the epigastrium is present. She has completed her manometry. Findings are consistent with esophageal dysmotility. ABDOMEN: Epigastric tenderness. No peritonitis. PLAN: 1. Recommend revision to gastric bypass from persistent complication of her sleeve gastrectomy. 2. Will need inpatient hospitalization for more than 2 nights. 3. DVT prophylaxis. 4. Discussed diabetes and insulin resistance improvement following her procedure.
[2018-01-09 14:00] VITALS: BP 139/79; PULSE 91; RESP 15; TEMP 98.6; BMI 29.5
== END | disposition home or self-care (01) ==
LOC: BARWHC3 12:54
PROVIDERS: ATTEND Surgery Plastic and Reconstructive Surgery
DX: Z48.815 Encounter for surgical aftercare following surgery on the digestive system (principal); K95.89 Other complications of other bariatric procedure; R10.13 Epigastric pain; R10.819 Abdominal tenderness, unspecified site; Z98.84 Bariatric surgery status
CPT/HCPCS: 99211

== ENCOUNTER 2018-01-16 23:58 | Emergency (ER) | payer OTHER ==
[2018-01-17 00:26] VITALS: BP 128/83; PULSE 75; RESP 18; TEMP 97.9
[2018-01-17] MEDS ORDERED: ONDANSETRON 4 MG/2 ML VIAL ONE (01:19)
[2018-01-17] MEDS ORDERED: CIMETIDINE HCL 300 MG/5 ML ONE (01:19)
[2018-01-17] MEDS ORDERED: MAG HYDROX/AL HYDROX/SIMETH 30 ML CUP ONE (01:19)
[2018-01-17] MEDS ORDERED: LIDOCAINE VISCOUS 2% 15 ML CUP ONE (01:19)
[2018-01-17] MEDS ORDERED: PANTOPRAZOLE 40 MG/10 ML VIAL ONE (01:19)
[2018-01-17 06:29] LABS: Basophils # (A) 0.1 k/uL (0-0.2); Basophils % (A) 1 %; Eosinophils # (A) 0.1 k/uL (0-0.7); Eosinophils % (A) 2 %; HCT 38.4 % (34.0-46.0); HGB 12.7 gm/dL (11.4-16.0); Lymphocytes # (A) 2.7 k/uL (1.0-4.8); Lymphocytes % (A) 45 %; MCH 28.8 pg (25.0-35.0); MCHC 33.2 g/dL (31.0-37.0); Mean Platelet Volume 6.7; Monocytes # (A) 0.3 k/uL (0-1.0); Monocytes % (A) 5 %; Neutrophils # (A) 2.7 k/uL (1.3-7.7); Neutrophils % (A) 45 %; Platelet Count 279 k/uL (150-450); RBC 4.42 m/uL (3.80-5.40); RDW 12.9 % (11.5-15.5); WBC 6.1 k/uL (3.8-10.6)
[2018-01-17 06:47] LABS: Albumin 4.1 g/dL (3.5-5.0); Calcium 9.5 mg/dL (8.4-10.2); Potassium 4.1 mmol/L (3.5-5.1); Total Bilirubin 0.2 mg/dL (0.2-1.3); Total Protein 6.5 g/dL (6.3-8.2)
== END 2018-01-17 03:09 | disposition home or self-care (01) ==
LOC: EC 23:58
DX: K21.9 Gastro-esophageal reflux disease without esophagitis (principal); R11.2 Nausea with vomiting, unspecified; Z87.891 Personal history of nicotine dependence
CPT/HCPCS: 36415; 80053; 82150; 83690; 85025; 96374; 96375; 99283

== ENCOUNTER → 2018-02-06 | Outpatient (CLI) | payer OTHER ==
[2018-02-06 16:54] VITALS: BP 142/86; PULSE 76; TEMP 98.2; BMI 29.2
--- NOTE | 2018-02-06 17:08 | P.PN ---
Subjective Progress Note Date: 02/06/18 HPI: She reports severe reflux and has anatomical complication from her sleeve gastrectomy. PLAN: 1. Recommend proceed to revision from sleeve to gastric bypass. 2. Inpatient hospitalization for 2 nights described. 3. Robotic approach described. Objective - Vital Signs Vital signs: Vital Signs Temp 98.2 F 02/06/18 16:49 Pulse 76 02/06/18 16:49 Resp BP 142/86 02/06/18 16:49 Pulse Ox Intake & Output 02/05/18 02/06/18 02/06/18 18:59 06:59 18:59 Weight 72.529 kg
--- NOTE | 2018-02-06 17:17 | P.PN ---
Progress Note - Text Progress Note Date: 02/06/18 To whom it may concern: Josefina Bird will be undergoing major abdominal surgery. She will need 6 weeks of recovery from her operation February 18, 2018. Regards, Nu Stewart MD, FACS
== END | disposition home or self-care (01) ==
LOC: BARWHC3 16:37
PROVIDERS: ATTEND Surgery Plastic and Reconstructive Surgery
DX: K21.9 Gastro-esophageal reflux disease without esophagitis (principal); Z98.84 Bariatric surgery status
CPT/HCPCS: 99211

== ENCOUNTER → 2018-02-13 | Outpatient (CLI) | payer OTHER ==
[2018-02-13 14:17] LABS: Basophils % (A) 1 %; Eosinophils # (A) 0.1 k/uL (0-0.7); Eosinophils % (A) 3 %; HCT 40.2 % (34.0-46.0); Lymphocytes # (A) 1.7 k/uL (1.0-4.8); Lymphocytes % (A) 38 %; MCH 28.3 pg (25.0-35.0); MCHC 32.3 g/dL (31.0-37.0); MCV 87.7 fL (80.0-100.0); Mean Platelet Volume 6.7; Monocytes # (A) 0.3 k/uL (0-1.0); Monocytes % (A) 6 %; Neutrophils # (A) 2.2 k/uL (1.3-7.7); Neutrophils % (A) 50 %; Platelet Count 276 k/uL (150-450); RBC 4.59 m/uL (3.80-5.40); RDW 12.9 % (11.5-15.5); WBC 4.5 k/uL (3.8-10.6)
[2018-02-13 14:31] LABS: ALT 26 U/L (9-52); AST 19 U/L (14-36); Albumin 4.2 g/dL (3.5-5.0); Alkaline Phosphatase 51 U/L (38-126); Anion Gap 10 mmol/L; Blood Urea Nitrogen 16 mg/dL (7-17); Calcium 9.7 mg/dL (8.4-10.2); Carbon Dioxide 29 mmol/L (22-30); Chloride 104 mmol/L (98-107); Glucose 91 mg/dL (74-99); Potassium 4.7 mmol/L (3.5-5.1); Sodium 143 mmol/L (137-145); Total Bilirubin 0.3 mg/dL (0.2-1.3); Total Protein 6.6 g/dL (6.3-8.2)
== END | disposition home or self-care (01) ==
LOC: LABPAT 12:56
PROVIDERS: ATTEND Surgery Plastic and Reconstructive Surgery
DX: Z01.812 Encounter for preprocedural laboratory examination (principal)
CPT/HCPCS: 36415; 80053; 85025; 93005

== ENCOUNTER 2018-02-18 10:55 | Inpatient (IN) | payer OTHER ==
--- NOTE | 2018-02-17 17:06 | P.GSHP ---
History of Present Illness H&P Date: 02/18/18 DATE OF SERVICE: 02/18/2018 CHIEF COMPLAINT: Complications from sleeve gastrectomy HISTORY OF PRESENT ILLNESS: Josefina Bird is a 52-year-old female who is status post sleeve gastrectomy 04/05/2016. She is over 1.5 years out. At her initial evaluation, she had weighed as much as 201 pounds. Today she comes in weighing 159 pounds. She has maintained 42 pounds weight loss. Percent excess weight loss 64 %. Body mass index reduced from 36.8 down to 29.1. She is 24 pounds overweight. She comes in with complaints of dysphagia. She had pre- existing gastroesophageal reflux disease which is now worse. She comes in from intolerance of her sleeve gastrectomy. Her abdominal pain at the epigastrium is still present. She has completed her manometry. Findings are consistent with esophageal dysmotility. PAST MEDICAL HISTORY: 1. Obstructive sleep apnea. 2. Gastroesophageal reflux disease. 3. History of hiatal hernia. 4. Carpal tunnel syndrome. 5. Diabetes type 2. 6. Hypothyroidism. 7. Chronic obstructive pulmonary disease. 8. Anxiety. 9. Colon polyps. 10. Sleep apnea. 11. Morbid obesity, BMI 36.8 PAST SURGICAL HISTORY: 1. Uterine ablation. 2. Left carpal tunnel release. 3. Bilateral breast reduction. 4. Upper endoscopy. 5. Lower endoscopy. 6. Status post sleeve gastrectomy. 7. Cholecystectomy. MEDICATIONS: 1. Imitrex. 2. Synthroid. 3. Multivitamin. 4. Incruse Ellipta. 5. ProAir. 6. Calcium 7. Tudorza with Pressair. 8. Zantac. 9. Xanax. 10. Omeprazole. 11. Metformin 12. Provigil 13. Xalantan eye drops 14. Breo Ellipta 15. Fluorometholone ALLERGIES: Denies. SOCIAL HISTORY: Former tobacco user. FAMILY HISTORY: Pertinent for morbid obesity in her mother. Also no reports of Crohn's disease or ulcerative colitis. Denies any family history of gastrointestinal cancers. She has a mother who has morbid obesity. REVIEW OF SYSTEMS: CONSTITUTIONAL: Her ideal body weight is 135 pounds for her 5 foot 2 frame. Heighest weight of 201 pounds. Prior BMI 36.8 down to 29.1 She has lost 42 pounds. Percent excess weight loss of 64%. GASTROINTESTINAL: No reports of dumping syndrome. She reports gastroesophageal reflux disease uncontrolled by medications. ENDOCRINE: Improved insulin resistance. She is no longer on medications for diabetic control. CARDIOVASCULAR: History of hypertension. No palpitations. RESPIRATORY: History of chronic obstructive pulmonary disease. She is still on moderate medications. Has worsened asthma. NEURO: History of migraine headaches. No strokes. HEENT: Denies any troubles with vision or hearing. GENITOURINARY: History of endometrial ablation. 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 PSYCH: History of anxiety and depression. HEMATOLOGIC: Denies any easy bruising and bleeding or prior venous thromboembolic event. PHYSICAL EXAM: VITAL SIGNS: 5 foot 2, 159 pounds. Body mass index 29.1 ABDOMEN: Soft, nondistended. No incisional hernia. Epigastric tenderness. No peritonitis. MUSCULOSKELETAL: No clubbing, cyanosis, or edema. GENERAL: Well-developed female in no acute distress. HEENT: No sclera icterus. Extraocular movements grossly intact. Moist buccal mucosa. Head is atraumatic, normocephalic. Hears conversational speech. No nasal drainage. Left thyroid nodule. NECK: Supple without lymphadenopathy. No JV distention. Left thyroid nodule CHEST: Non-labored respirations and equal bilateral excursions. CARDIOVASCULAR: Regular rate and rhythm. Palpable 2+ radial pulses. NEUROLOGIC: No focal or lateralizing signs. Cranial nerves II through XII grossly intact. PSYCH: Appropriate affect. Alert and oriented to person, place and time. SKIN: Well-perfused. Good skin turgor. STUDIES: Manometry view demonstrated upper esophageal sphincter pressure hypotensive. V[place] VIEW swallow consistent with reflux disease. No evidence of scleroderma or achalasia identified. ASSESSMENT: 1. Previous history of morbid obesity. 2. Body mass index reduced from 36.8 down to 29.1 3. Status post sleeve gastrectomy. 4. Gastroesophageal reflux disease, uncontrolled. 5. Dysphagia 6. History of colon polyps 7. Left thyroid nodule. 8. Complications from sleeve gastrectomy. 9. Hypercholesterolemia. 10. Vitamin D deficiency 11. Secondary hyperparathyroidism 12. Selenium elevated PLAN: 1. Recommend revision to gastric bypass from persistent complication of her sleeve gastrectomy. 2. Will need inpatient hospitalization for more than 2 nights. 3. DVT prophylaxis. 4. Discussed diabetes and insulin resistance improvement following her procedure. 5. Robotic assisted approach described. 6. The [place] [facility] Data was also reviewed with benefits and risks as described. 7. An 8 page second-generation bariatric consent form was reviewed in detail including potential of bleeding, infection, leaks, adequate weight loss, nutritional deficiencies which she demonstrated understanding of the risks. 8. A 2 week high-protein low caloric 800 kcal diet described to address hepatomegaly. 9. Preoperative labs including complete metabolic panel and CBC with type and screen recommended. 10. DVT prophylaxis per [place] [facility]. 11. Antibiotic prophylaxis. Past Medical History Past Medical History: Chest Pain / Angina, COPD, Diabetes Mellitus, Eye Disorder , Fibromyalgia, GERD/Reflux, Thyroid Disorder Additional Past Medical History / Comment(s): migraines, hiatal hernia, Insulin Resistance Diabetes., "borderline sleep apnea"., Glaucoma., hypothyroid, thyroid nodule., Gastric Sleeve 03/2016., SOB with activity. History of Any Multi-Drug Resistant Organisms: None Reported Past Surgical History: Bariatric Surgery, Breast Surgery, Cholecystectomy, Uterine Ablation Additional Past Surgical History / Comment(s): left carpel tunnel, breast reduction, gastric sleeve (03/2016). Past Anesthesia/Blood Transfusion Reactions: Motion Sickness, Postoperative Nausea & Vomiting (PONV) Smoking Status: Former smoker - Past Family History Mother Family Medical History: No Reported History Additional Family Medical History / Comment(s): . Father Additional Family Medical History / Comment(s): car pilot w/ plane crash- age 23 Medications and Allergies Home Medications Medication Instructions Recorded Confirmed Type ALPRAZolam [Xanax] 0.5 mg PO DAILY PRN 03/31/15 02/06/18 History Levothyroxine Sodium [Synthroid] 37.5 mcg PO HS 11/02/15 02/06/18 History SUMAtriptan SUCCINATE [Imitrex] 100 mg PO DAILY PRN 11/02/15 02/06/18 History Multivitamins, Thera [Multivitamin] 1 tab PO DAILY 06/01/16 02/06/18 History Omeprazole 40 mg PO DAILY #90 capsule. 12/27/16 02/06/18 Rx Ranitidine HCl [Zantac] 150 mg PO BID #180 tab 12/27/16 02/06/18 Rx Fluticasone/Vilanterol [Breo 1 dose INHALATION DAILY 01/25/17 02/06/18 History Ellipta 100-25 Mcg Inhaler] Fluorometholone 0.1% Ophth Mary 1 drops BOTH EYES BID 03/25/17 02/06/18 History [Fml] Latanoprost [Xalatan 0.005%] 1 drop BOTH EYES HS 03/25/17 02/06/18 History Umeclidinium Cadott [Incruse 1 puff INHALATION DAILY 11/05/17 02/06/18 History Ellipta] metFORMIN HCL [Glucophage Xr] 500 mg PO DAILY 11/05/17 02/06/18 History Albuterol Sulfate [Proair Hfa] 1 - 2 puff INHALATION Q6HR PRN 11/21/17 02/06/18 History Modafinil [Provigil] 200 mg PO BID PRN 01/17/18 02/06/18 History Calcium Citrate (Unknown Dose) 1 tab PO DAILY 02/06/18 02/06/18 History Cyclobenzaprine [Flexeril] 10 mg PO DAILY PRN 02/06/18 02/06/18 History Vitamin B-12 With Vit C Fenton 1 dose NASAL DAILY 02/06/18 02/06/18 History Allergies Allergy/AdvReac Type Severity Reaction Status Date / Time latex AdvReac states Verified 02/06/18 17:53 "feels like chest tightens"
[~2018-02-18 10:55] MED LIST changes: +ACETAMINOPHEN IV (For NPO) 1,000 MG in EMPTY BAG 1 BAG IVPB ONE; +CHLORHEXIDINE GLUCONATE 15 ML CUP MUCOUS MEM ONE; +ENOXAPARIN 40 MG/0.4 ML SYRINGE SQ STA; +MIDAZOLAM 2 MG/2 ML VIAL IV PRN; +SCOPOLAMINE 1.5MG/72HR PATCH TRANSDERM ONE; +ceFAZolin IN SWFI 2 GM/20 ML SYRINGE IVP ONE; +fentaNYL (PF) 50 MCG/ML 2 ML AMP IV PRN
[2018-02-18 11:50] VITALS: RESP 16
[2018-02-18] MEDS ORDERED: LIDOCAINE 1% 20 ML VIAL (10MG/ML) FOR IV START INTRADERMA ONE (12:22)
[2018-02-18 12:27] LABS: Glucose,Whole Blood 90 mg/dL (75-99)
[2018-02-18] MEDS: ONDANSETRON 4 MG/2 ML VIAL IVP ONE ×2 (12:29→19:45)
[2018-02-18] MEDS: DEXAMETHASONE SOD PHOSPHATE 10 MG/ML 1 ML VIAL IV ONE ×2 (12:30→19:45)
[2018-02-18] MEDS: PANTOPRAZOLE 40 MG/10 ML VIAL IV STA ×2 (12:36→19:46)
[2018-02-18] MEDS: HEPARIN SODIUM,PORCINE 5,000 UNIT/ML 1 ML VIAL SQ ONE ×2 (14:00→19:44)
[2018-02-18] MEDS ORDERED: SUCCINYLCHOLINE CHLORIDE 100 MG/5 ML SYR IV ONE (14:16)
[2018-02-18] MEDS ORDERED: NEOSTIGMINE 1 MG/ML 10 ML VIAL ONE (14:16)
[2018-02-18] MEDS ORDERED: ROCURONIUM BROMIDE 10 MG/ML 10 ML VIAL IV ONE (14:16)
[2018-02-18] MEDS ORDERED: PROPOFOL 10 MG/ML 20 ML VIAL IV ONE (14:16)
[2018-02-18] MEDS ORDERED: MIDAZOLAM 2 MG/2 ML VIAL ONE (14:16)
[2018-02-18] MEDS ORDERED: fentaNYL (PF) 50 MCG/ML 2 ML AMP ONE (14:16)
[2018-02-18] MEDS ORDERED: ACETAMINOPHEN IV (For NPO) 1,000 MG/100 ML VIAL ONE (14:16)
[2018-02-18] MEDS ORDERED: GLYCOPYRROLATE 0.2 MG/ML 2 ML VIAL ONE (14:16)
[2018-02-18] MEDS ORDERED: LIDOCAINE 1% INJ 10MG/ML (20 ML MDV) ONE (14:16)
[2018-02-18] MEDS ORDERED: BUPIVACAINE (PF) 0.5% 30 ML VIAL SQ ONE (15:34)
[2018-02-18] MEDS ORDERED: LACTATED RINGERS 1,000 ML IV ONE (16:27)
--- NOTE | 2018-02-18 17:32 | P.OP ---
Date of Procedure: 02/18/18 Description of Procedure: SURGEON: SENG BHATIA MD PREOPERATIVE DIAGNOSES: 1. Previous history of morbid obesity. 2. Body mass index reduced from 36.8 down to 29.1 3. Status post sleeve gastrectomy. 4. Gastroesophageal reflux disease, uncontrolled. 5. Dysphagia 6. History of colon polyps 7. Left thyroid nodule. 8. Complications from sleeve gastrectomy. 9. Hypercholesterolemia. 10. Vitamin D deficiency 11. Secondary hyperparathyroidism 12. Selenium elevated POSTOPERATIVE DIAGNOSES: 1. Previous history of morbid obesity. 2. Body mass index reduced from 36.8 down to 29.1 3. Status post sleeve gastrectomy. 4. Gastroesophageal reflux disease, uncontrolled. 5. Dysphagia 6. History of colon polyps 7. Left thyroid nodule. 8. Complications from sleeve gastrectomy. 9. Hypercholesterolemia. 10. Vitamin D deficiency 11. Secondary hyperparathyroidism 12. Selenium elevated 13. Hiatal hernia OPERATION: 1. Robotic assisted da Sunday Xi laparoscopic Amisha-en-Y gastric bypass, 75 cm antecolic antegastric Amisha limb, with 25 mm EEA (Revision) 2. Intraoperative esophagogastrojejunoscopy. ANESTHESIA: GETA and local ESTIMATED BLOOD LOSS: 10 mL SPECIMENS REMOVED: None. COMPLICATIONS: NONE. INDICATIONS: Josefina Bird is a 52-year-old female who is status post sleeve gastrectomy 04/05/2016. She is over 1.5 years out. At her initial evaluation, she had weighed as much as 201 pounds. Today she comes in weighing 157 pounds. She has maintained 44 pounds weight loss. Percent excess weight loss 64%. Body mass index reduced from 36.8 down to 29.1. She is 22 pounds overweight. She comes in with complaints of dysphagia. She had pre-existing gastroesophageal reflux disease which is now worse. She comes in from intolerance of her sleeve gastrectomy. Her abdominal pain at the epigastrium is still present. She has completed her manometry. Findings are consistent with upper esophageal hypotonicity. She now presents to undergo robotic assisted gastric bypass. A second-generation bariatric consent form was described in detail including the possibility of protein malnutrition, leaks, gastrojejunal stricture, venous thrombosis, need for further surgery for which she demonstrated understanding. Increased risk of complications were described as she is a revision. Benefits and risks of the procedure were described at length. Informed consent was obtained. DESCRIPTION: The patient was brought into the operating room theater. She was placed supine. She had received Lovenox subcutaneously for DVT prophylaxis. Additionally she Peridex oral solution as an oral decontaminant was placed per anesthesia. After general induction, the abdomen was prepped and draped in standard sterile fashion. Ioban draping was placed along the abdomen. A robotic da Sunday Xi system was prepped and primed. The xiphoid to umbilicus was measured of 16 cm. Proposed port sites were marked with indelible marker along the anterior axillary line bilaterally, mid clavicular line bilaterally with each port marked 10 cm from each other. The wet process assistant head miller port was marked along the right lateral lower abdominal wall. The robotic stapler port was marked for the right midclavicular line including along the left midclavicular line. A 5 mm 0 degrees laparoscopic trocar entry was performed along the left upper quadrant. The abdomen was insufflated to 15 mmHg pressure, which she tolerated well. Diagnostic laparoscopy demonstrated no injury to bowel, viscera, or mesentery. The liver was unremarkable and consistent with her 2 week high- protein diet. No large hiatal hernia was encountered. An 8 mm camera port was placed left lateral to the umbilicus at the epigastrium , 15 cm distal to the xiphoid. Next, 12-mm robot stapler port was placed along the right mid abdomen. An 12 mm port was exchanged along the left upper quadrant. An 8 mm port was placed on the left lateral abdominal wall under direct localization. Please note that the ports were placed 18 to 20 cm away from the target anatomy of the stomach. Care was taken to check that each robotic arm was safely away from collision with the bed or the patient. At the epigastrium, a medium sized Diaz liver retractor was placed under direct visualization with the Iron Axle Turner placed under the right shoulder of the patient. The patient was repositioned in reverse Trendelenburg position at 14-degress after lowering the bed. The robot was docked over the patient. Using grasper for arm 3, a grasper for arm 1, including vessel sealer for arm 4 , the robotic system was docked and primed as described. Instruments were interchanged by the wet process assistant head miller including endoscissors and stapler. I had sat at the console. Next, the transverse mesocolon was reflected into the upper abdomen preparing for the jejunojejunostomy portion of the case. The ligament of Treitz was identified and measured 60 cm antegrade and marked using 3-0 Silk. The jejunum was divided at the 60 cm point using 45-mm white loads above the suture measurement. The biliopancreatic limb was held in place. The Amisha limb was measured 75 cm in an antegrade fashion to avoid tension along the proposed gastrojejunal anastomosis. At 100 cm along the anti-mesenteric border of the Amisha limb, a jejunojejunostomy was proposed whereby enterotomies were created along the biliopancreatic limb including the Amisha limb using a Bovie cautery. A stay suture of 3-0 Silk was placed to align and create the anastomosis. The enterotomies along the anti-mesenteric borders were created followed by unidirectional fire from the patient's right side using 2 - 45 mm white load Smart technology robotic stapler. The jejunojejunostomy was found to be hemostatic. The enterotomy was closed after horizontal mattress stitch of 3-0 silk used to elevate the enterotomy followed by closure with the robotic stapler white load. The jejunal limb was temporarily tacked along the left upper quadrant. Attention was now brought to the creation of the gastrojejunostomy. Along the lesser curvature of the stomach between the second and third veins, dissection was made along the retrogastric space to allow first firing of the robotic staple. Green loads of 2 - 45 mm staplers were used to divide the stomach to create the gastric pouch. The patient was then prepared for placement of a Orvil. The patient was Mallampati 2. A 25-mm Orvil was selected for placement by the nurse control room helper. The Orvil tubing was placed anterior to the staple line of the gastric pouch and brought out through the left inferior lateral port. I re-scrubbed into the case. The robotic arms were temporarily undocked. The Orvil was then carefully and successfully navigated with the help of the nurse control room helper into the gastric pouch. The sutures were identified and divided. The tubing was from the 25 mm anvil. As the Orvil had been placed, the blind jejunal limb was brought proximally into the upper abdomen. No torsion was found upon the Amisha limb. No tension was identified as the limb was brought along the upper abdomen. The blind jejunal limb was previously opened using endo -scissors with cautery. The 25-mm EEA stapler was brought through the left anterior lateral port site from the left side. The EEA stapler was brought through the open jejunal limb and its needle was deployed at the antimesenteric border where the anvil were mated for approximately 1 minute upon firing. The stapler was removed after irrigating the shaft of the instrument with warm normal saline. Donuts were found to be intact and on both sides. The da Sunday Xi robot arms were then re-docked. I sat at the console. The open jejunal limb defect was closed using 45 mm white loads after releasing any tension from the blind jejunal limb. Care was taken to avoid any long blind limb to avoid candycane syndrome. No reinforcement sutures were placed along the gastrojejunal anastomosis. The Aguiar and jejunojejunostomy mesenteric defects were obliterated by her intra- abdominal fat. I then went to the head of the bed to perform the esophagogastrojejunoscopy and a leak test. An Olympus gastroscope was passed along the posterior oropharynx which was unremarkable for any injury to the vocal cords. The scope was passed down to the proximal portion of the pouch, whereby no active bleeding was encountered. Excellent visualization of the gastrojejunostomy anastomosis, including the Amisha limb was encountered with endoscopic image obtained. The anastomosis was found to be patent. The gastrointestinal tract was desufflated. No evidence of intraoperative leak was encountered as the gastric pouch and anastomosis were submerged under normal saline solution. The robot was then undocked. I then went back to the bedside of the patient, whereby with coordinated effort of the wet process assistant head miller, irrigation was aspirated from the upper abdominal cavity. Tisseel was placed circumferentially over the anastomosis of the gastrojejunostomy. The fascial defect of the EEA stapler was closed using Darien Chicas and 0 Vicryl. All instruments and pneumoperitoneum were evacuated from the abdominal cavity. The port correlating with the EEA stapler device was cleansed with normal saline solution and hydrogen peroxide. The rest of incisions were reapproximated using 4-0 Monocryl in an interrupted subcuticular fashion. Local anesthetic was infiltrated along the skin for postop analgesia. Liquid glue was applied to the skin. OptiFoam dressing was placed along the EEA stapler site. At the end of the procedure, needle, sponge and instrument count had been verified correct by the certified surgical technician. She had tolerated the procedure well and was extubated and taken to the postanesthesia unit in stable condition. Intraoperative findings were described to the patient's family who were very pleased with the level of care. Total console time 65 minutes Operative Findings: 1. Biliopancreatic limb 60 cm 2. Bypass performed using 75cm amisha limb secondary to avoid increased tension at 150 cm. 3. Cardenas defect and jejunojejunostomy defect obliterated by moderate intra- abdominal fat. 4. Leak test negative with gastrojejunal anastomosis patent and hemostatic. 5. Robotic staplers total of 9 combined blue, green and white 45 mm used used to gastric pouch 6. No reinforcement sutures were placed along the gastrojejunal anastomosis
[2018-02-18] MEDS ORDERED: ONDANSETRON 4 MG/2 ML VIAL IVP PRN (17:34)
[2018-02-18] MEDS ORDERED: NALOXONE 0.4 MG/ML 1 ML VIAL IV PRN (17:34)
[2018-02-18] MEDS ORDERED: HYDROcodone/APAP 15 ML SOLUTION PO PRN (17:34)
[2018-02-18] MEDS ORDERED: diphenhydrAMINE 50 MG/ML 1 ML VIAL IVP PRN (17:34)
[2018-02-18] MEDS ORDERED: ACETAMINOPHEN IV (For NPO) 1,000 MG in EMPTY BAG 1 BAG IVPB ONE (17:34)
[2018-02-18 17:39] LABS: Glucose,Whole Blood 160 mg/dL (75-99)
[2018-02-18] MEDS ORDERED: 0.9% NACL WITH KCL 20 MEQ/L 1,000 ML IV SCH (17:45)
[2018-02-18] MEDS ORDERED: PROMETHAZINE INJ 25 MG/ML 1 ML VIAL IVPB ONE (17:49)
[2018-02-18] MEDS: SCOPOLAMINE 1.5MG/72HR PATCH TRANSDERM STA (18:01)
[2018-02-18] MEDS: LACTATED RINGERS 1,000 ML IV SCH ×2 (19:45→19:48)
[2018-02-18] MEDS: AMPICILLIN-SULBACTAM 3 GM in SODIUM CHLORIDE 0.9% 100 ML IVPB SCH (19:51)
[2018-02-18] MEDS: HYOSCYAMINE ORAL DROPS 1.875 MG/15 ML BOTTLE PO SCH (19:51)
[2018-02-18] MEDS: SIMETHICONE 40 MG/0.6 ML DROPS 2,000 MG/30 ML BOTTLE PO SCH (19:51)
[2018-02-18] MEDS: ALBUTEROL NEBULIZED 2.5 MG/3 ML INHALATION SCH (20:00)
[2018-02-18] MEDS: INSULIN ASPART 100 UNIT/ML 1 ML 10 ML VIAL SQ SCH (20:04)
[2018-02-18 20:15] LABS: Glucose,Whole Blood 129 mg/dL (75-99)
[2018-02-18] MEDS ORDERED: FLUOROMETHOLONE 0.1% OPHTH DROPS 5 ML BTL BOTH EYES SCH (21:00)
[2018-02-18] MEDS ORDERED: LATANOPROST 0.005% OPHTH DROPS 2.5 ML BTL BOTH EYES SCH (21:00)
[2018-02-18] MEDS: HYDROmorphone 0.5 MG/0.5 ML SYRINGE IVP PRN (22:09)
[2018-02-19] MEDS: INSULIN ASPART 100 UNIT/ML 1 ML 10 ML VIAL SQ SCH ×2 (00:26→06:22)
[2018-02-19] MEDS: AMPICILLIN-SULBACTAM 3 GM in SODIUM CHLORIDE 0.9% 100 ML IVPB SCH (00:28)
[2018-02-19] MEDS: SIMETHICONE 40 MG/0.6 ML DROPS 2,000 MG/30 ML BOTTLE PO SCH (00:29)
[2018-02-19] MEDS: HYOSCYAMINE ORAL DROPS 1.875 MG/15 ML BOTTLE PO SCH ×2 (00:30→06:21)
[2018-02-19 00:31] LABS: Glucose,Whole Blood 121 mg/dL (75-99)
[2018-02-19] MEDS: SCOPOLAMINE 1.5MG/72HR PATCH TRANSDERM STA (02:01)
[2018-02-19] MEDS: HYDROmorphone 0.5 MG/0.5 ML SYRINGE IVP PRN ×2 (02:03→06:22)
[2018-02-19 05:58] LABS: Glucose,Whole Blood 112 mg/dL (75-99)
[2018-02-19] MEDS: ALBUTEROL NEBULIZED 2.5 MG/3 ML INHALATION SCH ×2 (07:33→11:51)
[2018-02-19 07:42] LABS: Calcium 8.6 mg/dL (8.4-10.2); Magnesium 1.4 mg/dL (1.6-2.3); Phosphorus 3.6 mg/dL (2.5-4.5); Potassium 4.5 mmol/L (3.5-5.1)
[2018-02-19 07:51] VITALS: BP 93/58; PULSE 74; TEMP 99.4
[2018-02-19 07:54] LABS: Basophils % (A) 0 %; Eosinophils % (A) 0 %; HCT 34.3 % (34.0-46.0); HGB 11.3 gm/dL (11.4-16.0); Lymphocytes # (A) 1.6 k/uL (1.0-4.8); Lymphocytes % (A) 13 %; MCHC 32.9 g/dL (31.0-37.0); MCV 88.3 fL (80.0-100.0); Mean Platelet Volume 6.5; Monocytes # (A) 0.5 k/uL (0-1.0); Monocytes % (A) 4 %; Neutrophils # (A) 10.2 k/uL (1.3-7.7); Neutrophils % (A) 82 %; Platelet Count 282 k/uL (150-450); RBC 3.88 m/uL (3.80-5.40); WBC 12.4 k/uL (3.8-10.6)
[2018-02-19] MEDS ORDERED: 0.9% NACL WITH KCL 20 MEQ/L 1,000 ML IV SCH (08:00)
[2018-02-19] MEDS ORDERED: ENOXAPARIN 40 MG/0.4 ML SYRINGE SQ SCH (09:00)
[2018-02-19] MEDS ORDERED: SYMBICORT 80-4.5 MCG INHALER INHALATION SCH (09:00)
[2018-02-19] MEDS ORDERED: PANTOPRAZOLE 40 MG/10 ML VIAL IV SCH (09:00)
--- NOTE | 2018-02-19 10:16 | P.DS ---
Providers Date of admission: 02/18/18 11:27 Expected date of discharge: 02/19/18 Attending physician: Nu Stewart Primary care physician: Edwige Stahl Pertinent Studies: 52-year-old female presented to undergo Robotic assisted da Sunday Xi laparoscopic Albert-en-Y gastric bypass, 75 cm antecolic antegastric Albert limb, with 25 mm) with intraoperative esophagogastrojejunoscopy done on February patient is status post sleeve gastrectomy March 2016 . Patient continue to have dysphagia. Had pre-existing esophageal reflux disease which was worse. Patient came in from intolerance of her sleeve. Patient continued to have abdominal pain at the epigastric.area Patient completed manometry findings were consistent with upper esophageal hypotonicity Postop was tolerating Bariatric clear diet. Surgical incision sites dry. Stated medication was effective for pain control. Was up ambulating with no difficulty no nausea no vomiting sats on room air were 92% heart rate was in the 70s the mag was 1.4 which replacement was given Impression discharge diagnosis Previous history of morbid obesity from excessive calories BMI reduced from 36 down to 29 Vitamin D deficiency Complications from a sleeve gastrectomy Hyperlipidemia Status post sleeve gastrectomy Secondary hyperparathyroidism Robotic assisted da Sunday Xi laparoscopic Albert-en-Y gastric bypass, 75 cm antecolic antegastric Albert limb, with 25 mm EEA (Revision) Intraoperative esophagogastrojejunoscopy.done February COPD stable no evidence of an exacerbation The above impression and plan of care have been discussed and directed by signing physician. Ashley Marin nurse practitioner acting as scribe for signing physician. Plan - Discharge Summary Discharge Rx Participant: Yes New Discharge Prescriptions: New HYDROcodone/APAP [Wedron Elixir 7.5-325Mg/15Ml] 15 ml PO Q4HR PRN 3 Days #270 ml PRN Reason: Pain Bisacodyl [Dulcolax] 5 mg PO DAILY PRN #10 tablet.dr PRN Reason: Constipation Ondansetron Odt [Zofran Odt] 4 mg PO Q8HR PRN #9 tab PRN Reason: Nausea Simethicone 40 mg/0.6 ml Drops [Mylicon Drops] 40 mg PO PCHS PRN #30 ml PRN Reason: Gas Discontinued Multivitamins, Thera [Multivitamin] 1 tab PO DAILY Ranitidine HCl [Zantac] 150 mg PO BID #180 tab metFORMIN HCL [Glucophage Xr] 500 mg PO DAILY Calcium Citrate (Unknown Dose) 1 tab PO DAILY No Action ALPRAZolam [Xanax] 0.5 mg PO DAILY PRN PRN Reason: Anxiety SUMAtriptan SUCCINATE [Imitrex] 100 mg PO DAILY PRN PRN Reason: MIGRAINES Levothyroxine Sodium [Synthroid] 37.5 mcg PO HS Omeprazole 40 mg PO DAILY #90 capsule. Fluticasone/Vilanterol [Breo Ellipta 100-25 Mcg Inhaler] 1 puff INHALATION RT -DAILY Latanoprost [Xalatan 0.005%] 1 drop BOTH EYES HS Fluorometholone 0.1% Ophth Mary [Fml] 1 drops BOTH EYES BID Umeclidinium Wallace [Incruse Ellipta] 1 puff INHALATION RT-DAILY Albuterol Sulfate [Proair Hfa] 1 - 2 puff INHALATION RT-Q6H PRN PRN Reason: Shortness Of Breath Modafinil [Provigil] 200 mg PO BID PRN PRN Reason: SLEEPINESS Cyclobenzaprine [Flexeril] 10 mg PO DAILY PRN PRN Reason: Pain Vitamin B-12 With Vit C Gordon 1 spray NASAL DAILY Discharge Medication List ALPRAZolam [Xanax] 0.5 mg PO DAILY PRN 03/31/15 [History] Levothyroxine Sodium [Synthroid] 37.5 mcg PO HS 11/02/15 [History] SUMAtriptan SUCCINATE [Imitrex] 100 mg PO DAILY PRN 11/02/15 [History] Omeprazole 40 mg PO DAILY #90 capsule. 12/27/16 [Rx] Fluticasone/Vilanterol [Breo Ellipta 100-25 Mcg Inhaler] 1 puff INHALATION RT- DAILY 01/25/17 [History] Fluorometholone 0.1% Ophth Mary [Fml] 1 drops BOTH EYES BID 03/25/17 [History] Latanoprost [Xalatan 0.005%] 1 drop BOTH EYES HS 03/25/17 [History] Umeclidinium Wallace [Incruse Ellipta] 1 puff INHALATION RT-DAILY 11/05/17 [ History] Albuterol Sulfate [Proair Hfa] 1 - 2 puff INHALATION RT-Q6H PRN 11/21/17 [ History] Modafinil [Provigil] 200 mg PO BID PRN 01/17/18 [History] Cyclobenzaprine [Flexeril] 10 mg PO DAILY PRN 02/06/18 [History] Vitamin B-12 With Vit C Gordon 1 spray NASAL DAILY 02/06/18 [History] Bisacodyl [Dulcolax] 5 mg PO DAILY PRN #10 tablet. 02/19/18 [Rx] HYDROcodone/APAP [Wedron Elixir 7.5-325Mg/15Ml] 15 ml PO Q4HR PRN 3 Days #270 ml 02/19/18 [Rx] Ondansetron Odt [Zofran Odt] 4 mg PO Q8HR PRN #9 tab 02/19/18 [Rx] Simethicone 40 mg/0.6 ml Drops [Mylicon Drops] 40 mg PO PCHS PRN #30 ml [Rx] Follow up Appointment(s)/Referral(s): [facility] [NON-STAFF] - 02/22/18 10:00 am Patient Instructions/Handouts: Nutrition after Bariatric Surgery (GEN), Albert- en-Y Gastric Bypass (DC) Activity/Diet/Wound Care/Special Instructions: Protein shakes start . May shower. No bathtub soaks. Dressing to be removed in the office. Discharge Disposition: HOME SELF-CARE
[2018-02-19 10:44] VITALS: BMI 27.8
[2018-02-19] MEDS: MAGNESIUM SULFATE-D5W PMX 1 GM in DEXTROSE/WATER 1 100ML.BAG IVPB SCH ×3 (10:48→13:03)
[2018-02-19 11:35] LABS: Glucose,Whole Blood 110 mg/dL (75-99)
[2018-02-20] MEDS ORDERED: BISACODYL 5 MG TABLET.DR PO PRN (08:00)
== END 2018-02-19 14:19 | disposition home or self-care (01) | DRG 327 ==
LOC: EEVIPCON 11:27 → 2ORMAIN 11:27 → 3SUR 17:15
PROVIDERS: ADMIT Surgery Plastic and Reconstructive Surgery; ATTEND Surgery Plastic and Reconstructive Surgery
PROC: 8E0W4CZ Robotic Assisted Procedure of Trunk Region, Percutaneous Endoscopic Approach (ICD-10-PCS; principal; 2018-02-18 13:10)
PROC: 0D164ZA Bypass Stomach to Jejunum, Percutaneous Endoscopic Approach (ICD-10-PCS; principal; 2018-02-18 13:10)
DX: K22.0 Achalasia of cardia (principal); N25.81 Secondary hyperparathyroidism of renal origin; E66.01 Morbid (severe) obesity due to excess calories; K21.9 Gastro-esophageal reflux disease without esophagitis; E78.00 Pure hypercholesterolemia, unspecified; E03.9 Hypothyroidism, unspecified; E04.1 Nontoxic single thyroid nodule; E11.9 Type 2 diabetes mellitus without complications; E55.9 Vitamin D deficiency, unspecified; E78.5 Hyperlipidemia, unspecified; G47.33 Obstructive sleep apnea (adult) (pediatric); H40.9 Unspecified glaucoma; H54.7 Unspecified visual loss; J44.9 Chronic obstructive pulmonary disease, unspecified; K44.9 Diaphragmatic hernia without obstruction or gangrene; M79.7 Fibromyalgia; F41.9 Anxiety disorder, unspecified; Z86.010 Personal history of colon polyps; Z79.890 Hormone replacement therapy; Z79.51 Long term (current) use of inhaled steroids; Z79.899 Other long term (current) drug therapy; Z79.84 Long term (current) use of oral hypoglycemic drugs; Z87.891 Personal history of nicotine dependence; Z68.29 Body mass index [BMI] 29.0-29.9, adult; Z91.040 Latex allergy status
CPT/HCPCS: 80051; 81025; 82310; 82565; 83735; 84100; 84520; 85025; 86850; 86900; 86901; 94640; 94760; 94762

== ENCOUNTER → 2018-02-22 | Outpatient (CLI) | payer OTHER ==
[2018-02-22 11:59] VITALS: BP 112/75; PULSE 68; TEMP 97.8; BMI 30.7
--- NOTE | 2018-02-22 15:13 | P.PN ---
Subjective Progress Note Date: 02/22/18 HPI: Patient is postop day 4 status post revision from sleeve to gastric bypass. Gastroesophageal reflux disease completely resolved. No reports of worsening asthma. She has concerns about wearing scopolamine patch with history of glaucoma. Pain is well controlled. No nausea or vomiting. ABDOMEN: Dressing along left upper quadrant discontinued. No signs of infection. All incisions well approximated. PLAN: 1. Follow-up in 1 week with full liquid diet bariatric stage II described. 2. Continue omeprazole for pouch care in the interim. Objective - Vital Signs Vital signs: Vital Signs Temp 97.8 F 02/22/18 11:55 Pulse 68 02/22/18 11:55 Resp BP 112/75 02/22/18 11:55 Pulse Ox Intake & Output 02/21/18 02/22/18 02/22/18 18:59 06:59 18:59 Weight 76.067 kg
== END | disposition home or self-care (01) ==
LOC: BARWHC3 09:55
PROVIDERS: ATTEND Surgery Plastic and Reconstructive Surgery
DX: Z48.815 Encounter for surgical aftercare following surgery on the digestive system (principal); Z79.84 Long term (current) use of oral hypoglycemic drugs
CPT/HCPCS: 99211

== ENCOUNTER → 2018-03-01 | Outpatient (CLI) | payer OTHER ==
--- NOTE | 2018-03-01 11:01 | P.PN ---
Subjective Progress Note Date: 03/01/18 DATE OF SERVICE: 03/01/2018 CHIEF COMPLAINT: Status post sleeve gastrectomy to gastric bypass HISTORY OF PRESENT ILLNESS: Josefina Bird is a 52-year-old female who is status post sleeve gastrectomy to gastric bypass 02/18/2018. Patient is postop day 11 status post revision from sleeve to gastric bypass. Reflux is completely gone. No fevers or chills. Her previous weight was 201 pounds. Today she comes in weighing 153 pounds from 167 pounds 1 week ago. She has maintained 48 pound weight loss. Percent excess weight loss 73 %. Body mass index reduced from 36.8 down to 28.0. She is 18 pounds overweight. PHYSICAL EXAM: VITAL SIGNS: 5 foot 2, 153 pounds. Body mass index 28.0 Vital Signs Temp 98.4 F 03/01/18 10:33 Pulse 65 03/01/18 10:33 Resp BP 125/78 03/01/18 10:33 Pulse Ox ABDOMEN: Soft, non-tender, non-distended. No wound infection. MUSCULOSKELETAL: No clubbing, cyanosis, or edema. GENERAL: Well-developed female in no acute distress. HEENT: No sclera icterus. Extraocular movements grossly intact. Moist buccal mucosa. Head is atraumatic, normocephalic. Hears conversational speech. No nasal drainage. NECK: Supple without lymphadenopathy. No JV distention. CHEST: Non-labored respirations and equal bilateral excursions. CARDIOVASCULAR: Regular rate and rhythm. Palpable 2+ radial pulses. NEUROLOGIC: No focal or lateralizing signs. Cranial nerves II through XII grossly intact. PSYCH: Appropriate affect. Alert and oriented to person, place and time. SKIN: Well-perfused. Good skin turgor. ASSESSMENT: 1. Previous history of morbid obesity. 2. Body mass index reduced from 36.8 down to 28.0 3. Status post gastric bypass. 4. Gastroesophageal reflux disease, resolved. PLAN: 1. Follow-up in 1 month 2. No wound infection. 3. Omeprazole for 1 month. 4. Overall, she is doing well. Objective - Vital Signs Vital signs: Intake & Output 02/28/18 03/01/18 03/01/18 18:59 06:59 18:59 Weight 69.4 kg
[2018-03-01 11:23] VITALS: BP 125/78; PULSE 65; TEMP 98.4; BMI 28.0
== END | disposition home or self-care (01) ==
LOC: BARWHC3 10:02
PROVIDERS: ATTEND Surgery Plastic and Reconstructive Surgery
DX: Z09 Encounter for follow-up examination after completed treatment for conditions other than malignant neoplasm (principal); Z98.84 Bariatric surgery status; Z86.39 Personal history of other endocrine, nutritional and metabolic disease
CPT/HCPCS: 99211

== ENCOUNTER → 2018-03-20 | Outpatient (CLI) | payer OTHER ==
[2018-03-20 13:48] LABS: HCT 39.8 % (34.0-46.0); HGB 12.6 gm/dL (11.4-16.0); MCH 27.5 pg (25.0-35.0); MCHC 31.7 g/dL (31.0-37.0); MCV 86.5 fL (80.0-100.0); Mean Platelet Volume 6.6; Platelet Count 265 k/uL (150-450); RBC 4.59 m/uL (3.80-5.40); WBC 6.1 k/uL (3.8-10.6)
[2018-03-20 13:50] LABS: Partial Thromboplastin Time 23.2 sec (22.0-30.0)
[2018-03-20 13:55] VITALS: BP 138/90; PULSE 88; RESP 16; TEMP 98.2; BMI 27.4
[2018-03-20 13:56] LABS: ALT 23 U/L (9-52); AST 16 U/L (14-36); Alkaline Phosphatase 57 U/L (38-126); Anion Gap 8 mmol/L; Blood Urea Nitrogen 9 mg/dL (7-17); Calcium 9.6 mg/dL (8.4-10.2); Carbon Dioxide 29 mmol/L (22-30); Chloride 105 mmol/L (98-107); Cholesterol 148 mg/dL (<200); Glucose 88 mg/dL (74-99); HDL Cholesterol 55 mg/dL (40-60); LDL Cholesterol,Calculated 74 mg/dL (0-99); Magnesium 1.6 mg/dL (1.6-2.3); Phosphorus 4.6 mg/dL (2.5-4.5); Potassium 3.8 mmol/L (3.5-5.1); Sodium 142 mmol/L (137-145); Total Bilirubin 0.5 mg/dL (0.2-1.3); Total Protein 6.4 g/dL (6.3-8.2); Triglycerides 97 mg/dL (<150)
--- NOTE | 2018-03-20 14:11 | P.PN ---
Subjective Progress Note Date: 03/20/18 HPI: Heartburn is gone. She complains of pain at the RUQ. Asthma is improving. Pain is worse after eating but okay with liquids. NECK: Thyroid nodule of the left neck. ABDOMEN: Mild epigastric pain. Has panniculitis. PLAN: 1. Recommend EGD with dilation 2. Multivitamins advised. 3. Recommend US of the thyroid nodule. 4. Get labs. Objective - Vital Signs Vital signs: Vital Signs Temp 98.2 F 03/20/18 13:52 Pulse 88 03/20/18 13:52 Resp 16 03/20/18 13:52 BP 138/90 03/20/18 13:52 Pulse Ox Intake & Output 03/19/18 03/20/18 03/20/18 18:59 06:59 18:59 Weight 68.039 kg - Labs CBC & Chem 7: 03/20/18 12:59 03/20/18 12:59 Labs: Abnormal Lab Results - Last 24 Hours (Table) 03/20/18 Range/Units 12:59 Phosphorus 4.6 H (2.5-4.5) mg/dL
[2018-03-20 18:09] LABS: Iron Saturation 17.41 (12.00-45.00)
[2018-03-20 18:21] LABS: Folate, Serum 6.4 ng/mL; Vitamin D 25 Hydroxy 20.6 ng/mL (30.0-100.0)
[2018-03-20 18:29] LABS: Parathyroid Hormone Intact 77.8 pg/mL (14.0-72.0)
[2018-03-20 19:48] LABS: Hemoglobin A1C 5.7 % (4.0-6.0)
[2018-03-21 11:47] LABS: Vitamin B1 53 ug/L (38-122)
[2018-03-22 05:52] LABS: Vitamin A 38 ug/dL (38-106)
[2018-03-22 11:12] LABS: Zinc, Serum 93 ug/dL (60-130)
[2018-03-22 20:24] LABS: Selenium 136 mcg/L (63-160)
== END | disposition home or self-care (01) ==
LOC: BARWHC3 12:28
PROVIDERS: ATTEND Surgery Plastic and Reconstructive Surgery
DX: R10.11 Right upper quadrant pain (principal); R10.13 Epigastric pain; M79.3 Panniculitis, unspecified; J45.909 Unspecified asthma, uncomplicated; E04.1 Nontoxic single thyroid nodule; E21.1 Secondary hyperparathyroidism, not elsewhere classified; E89.1 Postprocedural hypoinsulinemia; D50.9 Iron deficiency anemia, unspecified; K90.9 Intestinal malabsorption, unspecified; E55.9 Vitamin D deficiency, unspecified; K76.9 Liver disease, unspecified; N19 Unspecified kidney failure; K50.90 Crohn's disease, unspecified, without complications; E66.01 Morbid (severe) obesity due to excess calories; Z68.27 Body mass index [BMI] 27.0-27.9, adult
CPT/HCPCS: 36415; 80053; 80061; 82306; 82525; 82607; 82728; 82746; 83036; 83540; 83550; 83735; 83970; 84100; 84134; 84255; 84425; 84443; 84590; 84630; 85027; 85610; 85730; 99211

== ENCOUNTER → 2018-03-28 | Outpatient (CLI) | payer OTHER ==
--- NOTE | 2018-03-28 11:57 | US ---
EXAMINATION TYPE: US thyroid st tissue head/neck DATE OF EXAM: 03/28/2018 COMPARISON: US FNA 2018 CLINICAL HISTORY: R94.6 Abnormal results of thyroid function study. Thyroid nodule, history of FNA, p atient on thyroid meds GLAND SIZE: Right Lobe: 3.4 x 0.9 x 1.0 cm Overall Parenchyma: homogenous Left Lobe: 3.5 x 1.7 x 1.8 cm Overall Parenchyma: homogeneous Isthmus Thickness: 0.3 cm NODULES RIGHT: # of nodules measured on right: 0 LEFT: # of nodules measured on left: 1 1. 2.5 X 1.7 x 2.4 cm hyperechoic mixed nodule at the mid pole with well-defined margins. This nodu le is wider than tall and shows intranodular vascularity. Prior size: 2.6 x 1.7 x 2.3 cm ISTHMUS: # of nodules measured in the isthmus: 0 Bilateral neck scanned, right neck: 2.0 x 0.4 x 1.2cm hypoechoic structure lateral to thyroid, probab le lymph node. IMPRESSION: Stable left thyroid nodule.
--- NOTE | 2018-03-28 13:01 | NM ---
EXAMINATION TYPE: NM thyroid image only DATE OF EXAM: 03/28/2018 COMPARISON: Ultrasound thyroid St. 8 HISTORY: Abnormal thyroid function test TECHNIQUE: After the intravenous administration of 10 mCi Tc 99m Sodium Pertechnetate. FINDINGS: Homogenous radiopharmaceutical trapping is noted within the right lobe of the gland. Decreased radio pharmaceutical trapping noted at the inferior pole of the left lobe of the gland. IMPRESSION: Cold nodule lower pole left lobe of the thyroid corresponding to patient's thyroid nodule , see results fine-needle aspiration 11/14/2017, consider follow-up biopsy as indicated.
== END | disposition home or self-care (01) ==
LOC: RADUSMAIN 09:20
PROVIDERS: ATTEND Surgery Plastic and Reconstructive Surgery
DX: E04.1 Nontoxic single thyroid nodule (principal)
CPT/HCPCS: 76536; 78013; A9512

== ENCOUNTER 2018-03-30 03:34 | Emergency (ER) | payer OTHER ==
[2018-03-30 03:45] VITALS: RESP 18
[2018-03-30 04:59] LABS: Basophils % (A) 1 %; Eosinophils # (A) 0.2 k/uL (0-0.7); Eosinophils % (A) 3 %; HGB 12.3 gm/dL (11.4-16.0); Lymphocytes # (A) 2.3 k/uL (1.0-4.8); Lymphocytes % (A) 41 %; MCH 28.2 pg (25.0-35.0); MCHC 32.4 g/dL (31.0-37.0); MCV 87.1 fL (80.0-100.0); Mean Platelet Volume 6.6; Monocytes # (A) 0.3 k/uL (0-1.0); Monocytes % (A) 5 %; Neutrophils # (A) 2.8 k/uL (1.3-7.7); Neutrophils % (A) 50 %; Platelet Count 297 k/uL (150-450); RBC 4.37 m/uL (3.80-5.40); RDW 13.1 % (11.5-15.5); WBC 5.6 k/uL (3.8-10.6)
[2018-03-30 05:02] LABS: Appearance,Urine Cloudy (Clear); Bacteria,Urine Rare /hpf; Bilirubin,Urine Negative (Negative); Blood,Urine Negative (Negative); Color,Urine Colorless; Glucose,Urine (UA) Negative (Negative); Ketones,Urine Negative (Negative); Leukocyte Esterase,Urine Large (Negative); Mucus,Urine Rare /hpf; Nitrite,Urine Negative (Negative); PH, Urine 5.5 (5.0-8.0); Protein,Urine Negative (Negative); RBC,Urine 7 /hpf (0-5); Specific Gravity,Urine 1.006 (1.001-1.035); Squamous Epithelial Cell,Urine 35 /hpf (0-4); Urobilinogen,Urine <2.0 mg/dL (<2.0); WBC,Urine 44 /hpf (0-5)
[2018-03-30 05:09] LABS: ALT 24 U/L (9-52); AST 17 U/L (14-36); Albumin 4.1 g/dL (3.5-5.0); Alkaline Phosphatase 52 U/L (38-126); Amylase 51 U/L (30-110); Anion Gap 8 mmol/L; Blood Urea Nitrogen 6 mg/dL (7-17); Calcium 9.9 mg/dL (8.4-10.2); Carbon Dioxide 28 mmol/L (22-30); Chloride 107 mmol/L (98-107); Glucose 90 mg/dL (74-99); Lipase 53 U/L (23-300); Potassium 3.9 mmol/L (3.5-5.1); Sodium 143 mmol/L (137-145); Total Bilirubin 0.2 mg/dL (0.2-1.3); Total Protein 6.6 g/dL (6.3-8.2)
--- NOTE | 2018-03-30 05:27 | CT ---
EXAMINATION TYPE: CT abdomen pelvis wo con DATE OF EXAM: 03/30/2018 COMPARISON: 10/20/2009 HISTORY: abd pain CT DLP: 380.40 mGycm Automated exposure control for dose reduction was used. TECHNIQUE: Helical acquisition of images was performed from the lung bases through the pelvis. FINDINGS: Lung bases are clear. There is no pleural effusion. There is no pericardial effusion. Liver shows no focal defect. There are clips from cholecystectomy. Spleen appears normal. There is no pancreatic mass. Bile ducts are not dilated. There are clips from gastric bypass surgery. There is s mall hiatal hernia. There is no adrenal mass. Kidneys have normal size and contour. There is no hydronephrosis. There is no renal calculus. There is no retroperitoneal adenopathy. There is no intestinal wall thickening. There are no dilated loops. Bladder distends smoothly. There is no pelvic mass. There is no intestinal wall thickening. Appendix is not seen. There is no sign of appendicitis. The bony structures appear intact. Uterus is anteverted. There is no sign of free air. There is small umbilical hernia that contains fat. IMPRESSION: PREVIOUS BARIATRIC SURGERY. SMALL HIATAL HERNIA. NO SIGN OF ACUTE ABDOMEN AND PELVIS. NO ADVERSE GARCIA GE COMPARED TO OLD EXAM.
--- NOTE | 2018-03-30 05:29 | XR ---
EXAMINATION TYPE: XR KUB DATE OF EXAM: 03/30/2018 COMPARISON: NONE HISTORY: Abdominal pain TECHNIQUE: 2 upright views FINDINGS: There is no sign of intestinal obstruction or pneumoperitoneum. Fecal pattern is normal. Th ere are clips from cholecystectomy. There is no sign of a mass. There is minimal pleural thickening a t the left cardiophrenic angle. IMPRESSION: Nonacute abdomen.
[2018-03-30] MEDS ORDERED: cefTRIAXone IN SWFI 1,000 MG/10 ML SYRINGE IVP STA (05:43)
[2018-03-30 06:09] VITALS: BP 121/71; PULSE 67; TEMP 97.5
--- NOTE | 2018-03-30 06:22 | ED ---
General Adult HPI - General Chief complaint: Abdominal Pain Stated complaint: Abd pain Time Seen by Provider: 03/30/18 03:52 Source: patient Mode of arrival: ambulatory Limitations: no limitations - History of Present Illness Initial comments: 52-year-old female past medical history of gastric sleeve with revision performed last month presenting to the ER for 2 weeks of right-sided abdominal pain. She reports she had usual postoperative pain for the first week after her surgery, pain was worse at the incision site on the left side of her abdomen. However for the past 2 week she's been experiencing intermittent stabbing right sided abdominal pain. Pain is not related to eating, or activity. She cannot identify any exacerbating causes of the pain. She can't identify any relieving factors to the pain. Patient comes on suddenly is sharp and lasts for minutes and resolves. Patient reports that [place] when she had sudden onset of stabbing right-sided abdominal pain with associated nausea but no vomiting. Her friends told her that she appeared pale during the episode of pain. Patient reports that she remained sitting and the pain subsided. [place] leaving the [place] she made the decision to come to the ER for further evaluation. She reports that she is primarily still eating soft foods though she has begun incorporating some ground meat and small bites of solid foods. However this doesn't seem to change the pain she's having in her abdomen. She reports that she still having bowel movements every other day. This is typical for her. She 's not having any constipation diarrhea or wrist any black or bloody stools. Patient denies fevers, chills, chest pain or shortness of breath. - Related Data Home Medications Medication Instructions Recorded Confirmed ALPRAZolam [Xanax] 0.5 mg PO DAILY PRN 03/31/15 03/30/18 Levothyroxine Sodium [Synthroid] 37.5 mcg PO HS 11/02/15 03/30/18 SUMAtriptan SUCCINATE [Imitrex] 100 mg PO DAILY PRN 11/02/15 03/30/18 Fluticasone/Vilanterol [Breo 1 puff INHALATION RT-DAILY 01/25/17 03/30/18 Ellipta 100-25 Mcg Inhaler] Fluorometholone 0.1% Ophth [place] 1 drops BOTH EYES BID 03/25/17 03/30/18 [Fml] Latanoprost [Xalatan 0.005%] 1 drop BOTH EYES HS 03/25/17 03/30/18 Umeclidinium [place] [Incruse 1 puff INHALATION RT-DAILY 11/05/17 03/30/18 Ellipta] Albuterol Sulfate [Proair Hfa] 1 - 2 puff INHALATION RT-Q6H PRN 11/21/17 Modafinil [Provigil] 200 mg PO BID PRN 01/17/18 03/30/18 Cyclobenzaprine [Flexeril] 10 mg PO DAILY PRN 02/06/18 03/30/18 Vitamin B-12 With Vit C [place] 1 spray NASAL DAILY 02/06/18 03/30/18 Previous Rx's Medication Instructions Recorded Cephalexin [Keflex] 500 mg PO BID 7 Days #14 capsule 03/30/18 Allergies Allergy/AdvReac Type Severity Reaction Status Date / Time latex AdvReac states Verified 03/30/18 03:45 "feels like chest tightens" scopolamine AdvReac Unknown Verified 03/30/18 03:45 Review of Systems ROS Statement: Those systems with pertinent positive or pertinent negative responses have been documented in the HPI. ROS Other: All systems not noted in ROS Statement are negative. Past Medical History Past Medical History: Chest Pain / Angina, COPD, Diabetes Mellitus, Eye Disorder , Fibromyalgia, GERD/Reflux, Thyroid Disorder Additional Past Medical History / Comment(s): migraines, hiatal hernia, Insulin Resistance Diabetes., "borderline sleep apnea"., Glaucoma., hypothyroid, thyroid nodule., Gastric Sleeve 03/2016., SOB with activity., History of Any Multi-Drug Resistant Organisms: None Reported Past Surgical History: Bariatric Surgery, Breast Surgery, Cholecystectomy, Uterine Ablation Additional Past Surgical History / Comment(s): left carpel tunnel, breast reduction, gastric sleeve (03/2016). 02-18-18 revision to gastric bypass, Past Anesthesia/Blood Transfusion Reactions: Motion Sickness, Postoperative Nausea & Vomiting (PONV) Past Psychological History: Anxiety Smoking Status: Former smoker Past Alcohol Use History: Rare Past Drug Use History: None Reported - Past Family History Mother Family Medical History: No Reported History Additional Family Medical History / Comment(s): . Father Additional Family Medical History / Comment(s): supervising airplane pilot w/ plane crash- age 23 General Exam Limitations: no limitations General appearance: alert, in no apparent distress Head exam: Present: atraumatic, normocephalic Eye exam: Present: normal appearance, PERRL ENT exam: Present: normal exam Neck exam: Present: full ROM Respiratory exam: Present: normal lung sounds bilaterally. Absent: respiratory distress Cardiovascular Exam: Present: regular rate, normal rhythm GI/Abdominal exam: Present: soft, other (Well-healing surgical incisions, abdomen is soft, nontender, nondistended). Absent: organomegaly, mass, pulsatile mass, hernia Rectal exam: Present: deferred Extremities exam: Present: normal inspection Back exam: Present: normal inspection Neurological exam: Present: alert, oriented X3 Psychiatric exam: Present: normal affect, normal mood Skin exam: Present: warm, dry Course Vital Signs 03/30/18 03/30/18 03:41 06:06 Temperature 97.9 F 97.5 F L Pulse Rate 76 67 Respiratory 18 18 Rate Blood Pressure 128/81 121/71 O2 Sat by Pulse 99 98 Oximetry Medical Decision Making - Medical Decision Making The patient was seen and evaluated, history is obtained from the patient and review of medical record Patient with a history of gastric sleeve and subsequent revision with a Albert-en- Y performed last month. Patient with 2 weeks of right-sided abdominal pain. On initial evaluation patient is nontoxic appearing, abdomen is nonacute with well-healing surgical incisions Labs and imaging was ordered Urinalysis with gross contamination but possibility of urinary tract infection, culture was ordered Rocephin was ordered CT of the abdomen with consistent postoperative changes, no evidence of acute abdomen Labs with no elevation of transaminases. Lipase is normal. There is no significant lab abnormalities Results were discussed with the patient who expresses relief that there is no acute findings. She is arty contacted her surgeon and will follow-up. In addition she has established relationship with gastroenterology and will follow up with them. Patient will continue a soft diet and return to the ER for any change or worsening of her condition all questions pertaining care were answered best my ability patient was discharged home with by mouth Keflex for urinary tract infection and advised to follow-up. - Lab Data Result diagrams: 03/30/18 04:50 03/30/18 04:50 Lab Results 03/30/18 03/30/18 03/30/18 Range/Units 04:50 04:50 04:50 WBC 5.6 (3.8-10.6) k/uL RBC 4.37 (3.80-5.40) m/uL Hgb 12.3 (11.4-16.0) gm/dL Hct 38.0 (34.0-46.0) % MCV 87.1 (80.0-100.0) fL MCH 28.2 (25.0-35.0) pg MCHC 32.4 (31.0-37.0) g/dL RDW 13.1 (11.5-15.5) % Plt Count 297 (150-450) k/uL Neutrophils % 50 % Lymphocytes % 41 % Monocytes % 5 % Eosinophils % 3 % Basophils % 1 % Neutrophils # 2.8 (1.3-7.7) k/uL Lymphocytes # 2.3 (1.0-4.8) k/uL Monocytes # 0.3 (0-1.0) k/uL Eosinophils # 0.2 (0-0.7) k/uL Basophils # 0.0 (0-0.2) k/uL Sodium 143 (137-145) mmol/L Potassium 3.9 (3.5-5.1) mmol/L Chloride 107 (98-107) mmol/L Carbon Dioxide 28 (22-30) mmol/L Anion Gap 8 mmol/L BUN 6 L (7-17) mg/dL Creatinine 0.60 (0.52-1.04) mg/dL Est GFR (CKD-EPI)AfAm >90 (>60 ml/min/1.73 sqM) Est GFR (CKD-EPI)NonAf >90 (>60 ml/min/1.73 sqM) Glucose 90 (74-99) mg/dL Calcium 9.9 (8.4-10.2) mg/dL Total Bilirubin 0.2 (0.2-1.3) mg/dL AST 17 (14-36) U/L ALT 24 (9-52) U/L Alkaline Phosphatase 52 (38-126) U/L Total Protein 6.6 (6.3-8.2) g/dL Albumin 4.1 (3.5-5.0) g/dL Amylase 51 (30-110) U/L Lipase 53 (23-300) U/L Urine Color Colorless Urine Appearance Cloudy H (Clear) Urine pH 5.5 (5.0-8.0) Ur Specific [place] 1.006 (1.001-1.035) Urine Protein Negative (Negative) Urine Glucose (UA) Negative (Negative) Urine Ketones Negative (Negative) Urine Blood Negative (Negative) Urine Nitrite Negative (Negative) Urine Bilirubin Negative (Negative) Urine Urobilinogen <2.0 (<2.0) mg/dL Ur Leukocyte Esterase Large H (Negative) Urine RBC 7 H (0-5) /hpf Urine WBC 44 H (0-5) /hpf Ur Squamous Epith Cells 35 H (0-4) /hpf Urine Bacteria Rare H (None) /hpf Urine Mucus Rare H (None) /hpf Disposition Clinical Impression: Abdominal pain, UTI (urinary tract infection) Disposition: HOME SELF-CARE Condition: Poor Instructions: Abdominal Pain (ED) Prescriptions: Cephalexin [Keflex] 500 mg PO BID 7 Days #14 capsule Is patient prescribed a controlled substance at d/c from ED?: No Referrals: Favio Gibbons MD [Primary Care Provider] - 1-2 days Time of Disposition: 06:22
== END 2018-03-30 06:30 | disposition home or self-care (01) ==
LOC: EC 03:34
DX: N39.0 Urinary tract infection, site not specified (principal); R10.9 Unspecified abdominal pain; J44.9 Chronic obstructive pulmonary disease, unspecified; M79.7 Fibromyalgia; E03.9 Hypothyroidism, unspecified; H40.9 Unspecified glaucoma; G47.30 Sleep apnea, unspecified; Z87.891 Personal history of nicotine dependence; Z79.51 Long term (current) use of inhaled steroids; Z79.899 Other long term (current) drug therapy; Z91.040 Latex allergy status; Z88.8 Allergy status to other drugs, medicaments and biological substances; Z90.49 Acquired absence of other specified parts of digestive tract; Z98.84 Bariatric surgery status
CPT/HCPCS: 36415; 80053; 82150; 83690; 85025; 81001; 87086; 74018; 74176; 99284; 96374; J0696

== ENCOUNTER → 2018-04-05 | Outpatient (CLI) | payer OTHER ==
[2018-04-05 12:13] VITALS: BP 115/76; PULSE 71; TEMP 97.8; BMI 27.4
--- NOTE | 2018-04-05 12:59 | P.PN ---
Subjective Progress Note Date: 04/05/18 HPI: Patient presented to the emergency room over 30 days out from sleeve to gastric bypass. She complains primarily of right lower quadrant abdominal pain. Pain has slowly improved. Separately, she has concerns of a left thyroid nodule including increased difficulty with occasional swallowing. ABDOMEN: Soft nondistended. Nontender STUDIES: CT of the abdominal pelvis reviewed including ultrasound and ultrasound of thyroid nodule. PLAN: 1. With patient's previous biopsy including studies of her ultrasound of her neck, recommend left thyroidectomy with possible subtotal thyroidectomy 2. She reports previous history of kidney stones, recommend Flomax including IV fluid hydration Objective - Vital Signs Vital signs: Vital Signs Temp 97.8 F 04/05/18 12:10 Pulse 71 04/05/18 12:10 Resp BP 115/76 04/05/18 12:10 Pulse Ox Intake & Output 04/04/18 04/05/18 04/05/18 18:59 06:59 18:59 Weight 68.039 kg
== END ==
LOC: BARWHC3 09:53
PROVIDERS: ATTEND Surgery Plastic and Reconstructive Surgery
DX: Z48.815 Encounter for surgical aftercare following surgery on the digestive system (principal); R10.31 Right lower quadrant pain; E04.1 Nontoxic single thyroid nodule; R13.10 Dysphagia, unspecified; Z98.84 Bariatric surgery status
CPT/HCPCS: 99211

== ENCOUNTER → 2018-06-19 | Outpatient (CLI) | payer OTHER ==
[2018-06-19 14:02] VITALS: BP 129/84; PULSE 78; TEMP 97.8; BMI 26.3
--- NOTE | 2018-06-19 14:52 | P.PN ---
Subjective Progress Note Date: 06/19/18 HPI: She reports having chest pain on 05/13/18 and had free air. She was taken to [facility] and had repair of a perforated gastrojejunal ulcer with Hipolito patch. She is 1 year out. She reports nausea still is worse after eating solid foods. ABDOMEN: Her incisions are well healed. Soft and non-tender. ASSESSMENT: 1. H/o of perforated gastrojejunal ulcer 2. S/p gastric bypass 3. Gastroesophageal reflux disease. PLAN: 1. Recommend bariatric labs 2. Will need upper endoscopy for history of gastric ulcer 3. Recommend hold off work until nausea and ulcer is evaluated. 4. Recommend colonoscopy for history of colon polyps. Objective - Vital Signs Vital signs: Vital Signs Temp 97.8 F 06/19/18 13:57 Pulse 78 06/19/18 13:57 Resp BP 129/84 06/19/18 13:57 Pulse Ox Intake & Output 06/18/18 06/19/18 06/19/18 18:59 06:59 18:59 Weight 65.317 kg
--- NOTE | 2018-06-19 15:00 | P.PN ---
Progress Note - Text Progress Note Date: 06/19/18 To whom it may concern: Josefina Bird is under my medical care. She is still ill following her recent surgery and is unable to return to work until medically cleared. Anticipated return to work including continued care plan is through July 21, 2018 with possible return to work on July 22, 2018. Regards, Nu Stewart MD [facility] [place]
[2018-06-19 15:38] LABS: HCT 39.3 % (34.0-46.0); HGB 12.4 gm/dL (11.4-16.0); MCH 28.3 pg (25.0-35.0); MCHC 31.6 g/dL (31.0-37.0); MCV 89.7 fL (80.0-100.0); Mean Platelet Volume 6.7; Platelet Count 270 k/uL (150-450); RBC 4.38 m/uL (3.80-5.40); RDW 13.3 % (11.5-15.5); WBC 6.4 k/uL (3.8-10.6)
[2018-06-19 15:50] LABS: Partial Thromboplastin Time 23.6 sec (22.0-30.0); Prothrombin Time 9.5 sec (9.0-12.0)
[2018-06-19 18:38] LABS: Albumin 4.5 g/dL (3.80-4.90); Albumin/Globulin Ratio 2.25 (1.20-2.10); Anion Gap 9.2 mmol/L (4.00-12.00); Calcium 9.4 mg/dL (8.7-10.3); Carbon Dioxide 28.8 mmol/L (21.6-31.8); Iron Saturation 13.61 (12.00-45.00); Magnesium 1.8 mg/dL (1.5-2.4); Phosphorus 3.7 mg/dL (2.4-5.1); Potassium 3.9 mmol/L (3.5-5.5); Total Bilirubin 0.3 mg/dL (0.3-1.2); Total Protein 6.5 g/dL (6.2-8.2)
[2018-06-19 18:47] LABS: Vitamin D 25 Hydroxy 15.4 ng/mL (30.0-100.0)
[2018-06-19 18:48] LABS: Folate, Serum 5.8 ng/mL
[2018-06-19 19:00] LABS: Parathyroid Hormone Intact 67.2 pg/mL (14.0-72.0)
[2018-06-20 04:01] LABS: Hemoglobin A1C 5.9 % (4.0-6.0)
[2018-06-20 12:21] LABS: Zinc, Serum 78 ug/dL (60-130)
[2018-06-21 05:45] LABS: Vitamin A 36 ug/dL (38-106)
[2018-06-21 12:02] LABS: Vitamin B1 52 ug/L (38-122)
== END ==
LOC: BARWHC3 12:50
PROVIDERS: ATTEND Surgery Plastic and Reconstructive Surgery
DX: K21.9 Gastro-esophageal reflux disease without esophagitis (principal); E66.01 Morbid (severe) obesity due to excess calories; E21.1 Secondary hyperparathyroidism, not elsewhere classified; D50.9 Iron deficiency anemia, unspecified; E89.1 Postprocedural hypoinsulinemia; E44.0 Moderate protein-calorie malnutrition; E55.9 Vitamin D deficiency, unspecified; K74.1 Hepatic sclerosis; N19 Unspecified kidney failure; K50.90 Crohn's disease, unspecified, without complications; Z98.84 Bariatric surgery status; Z87.11 Personal history of peptic ulcer disease; Z68.26 Body mass index [BMI] 26.0-26.9, adult
CPT/HCPCS: 36415; 80053; 80061; 82306; 82525; 82607; 82728; 82746; 83036; 83540; 83550; 83735; 83970; 84100; 84134; 84255; 84425; 84443; 84590; 84630; 85027; 85610; 85730; 99211

== ENCOUNTER → 2018-06-28 | Day surgery (SDC) | payer OTHER ==
[~2018-06-28] MED LIST changes: -ACETAMINOPHEN IV (For NPO) 1,000 MG in EMPTY BAG 1 BAG IVPB ONE; -CHLORHEXIDINE GLUCONATE 15 ML CUP MUCOUS MEM ONE; -ENOXAPARIN 40 MG/0.4 ML SYRINGE SQ STA; +LACTATED RINGERS 1,000 ML IV ONE; -LACTATED RINGERS 1,000 ML IV SCH; +LIDOCAINE 1% INJ 10MG/ML (20 ML MDV) ONE; -MIDAZOLAM 2 MG/2 ML VIAL IV PRN; +MIDAZOLAM 2 MG/2 ML VIAL ONE; +ONDANSETRON 4 MG/2 ML VIAL ONE; +PROPOFOL 10 MG/ML 20 ML VIAL IV ONE; -SCOPOLAMINE 1.5MG/72HR PATCH TRANSDERM ONE; -ceFAZolin IN SWFI 2 GM/20 ML SYRINGE IVP ONE; -fentaNYL (PF) 50 MCG/ML 2 ML AMP IV PRN
--- NOTE | 2018-06-28 05:33 | P.GSHP ---
History of Present Illness H&P Date: 06/28/18 CHIEF COMPLAINT: GERD and history of polyps HISTORY OF PRESENT ILLNESS: The patient is a 52-year-old female who presents with gastroesophageal reflux disease and history of colon polyps. Upper and lower endoscopy were offered for further evaluation and management. PAST MEDICAL HISTORY: Please see list. PAST SURGICAL HISTORY: Please see list. MEDICATIONS: Please see list. ALLERGIES: Please see list. SOCIAL HISTORY: No illicit drug use FAMILY HISTORY: No reports of Crohn disease or ulcerative colitis. REVIEW OF ORGAN SYSTEMS: CONSTITUTIONAL: No reports of fevers or chills. GI: Denies any blood in stools or constipation. PHYSICAL EXAM: VITAL SIGNS: Stable GENERAL: Well-developed pleasant in no acute distress. HEENT: No scleral icterus. Extraocular movements grossly intact. Moist buccal mucosa. NECK: Supple without lymphadenopathy. CHEST: Unlabored respirations. Equal bilateral excursions. CARDIOVASCULAR: Regular rate and rhythm. Distal 2+ pulses. ABDOMEN: Soft, nondistended. MUSCULOSKELETAL: No clubbing, cyanosis, or edema. ASSESSMENT: 1. Gastroesophageal reflux disease 2. History of colon polyps. PLAN: 1. Recommend proceeding with an upper and lower endoscopy Past Medical History Past Medical History: Chest Pain / Angina, COPD, Diabetes Mellitus, Eye Disorder , Fibromyalgia, GERD/Reflux, Thyroid Disorder Additional Past Medical History / Comment(s): migraines, hiatal hernia, Insulin Resistance Diabetes., "borderline sleep apnea"., Glaucoma., hypothyroid, thyroid nodule., Gastric Sleeve 03/2016., SOB with activity., History of Any Multi-Drug Resistant Organisms: None Reported Past Surgical History: Bariatric Surgery, Breast Surgery, Cholecystectomy, Uterine Ablation Additional Past Surgical History / Comment(s): left carpel tunnel, breast reduction, gastric sleeve (03/2016). 02-18-18 revision to gastric bypass, Past Anesthesia/Blood Transfusion Reactions: Motion Sickness, Postoperative Nausea & Vomiting (PONV) Additional Past Anesthesia/Blood Transfusion Reaction / Comment(s): has never received blood Smoking Status: Former smoker - Past Family History Mother Family Medical History: No Reported History Additional Family Medical History / Comment(s): . Father Additional Family Medical History / Comment(s): elevator pilot w/ plane crash- age 23 Medications and Allergies Home Medications Medication Instructions Recorded Confirmed Type ALPRAZolam [Xanax] 0.5 mg PO DAILY PRN 03/31/15 06/19/18 History Levothyroxine Sodium [Synthroid] 37.5 mcg PO HS 11/02/15 06/19/18 History SUMAtriptan SUCCINATE [Imitrex] 100 mg PO DAILY PRN 11/02/15 06/19/18 History Umeclidinium [place] [Incruse 1 puff INHALATION RT-DAILY 11/05/17 06/19/18 History Ellipta] Albuterol Sulfate [Proair Hfa] 1 - 2 puff INHALATION RT-Q6H PRN 11/21/17 History Modafinil [Provigil] 200 mg PO BID PRN 01/17/18 06/19/18 History Vitamin B-12 With Vit C [place] 1 spray NASAL DAILY 02/06/18 06/19/18 History Aclidinium [place] [Tudorza 1 puff INHALATION RT-BID 05/13/18 06/19/18 History Pressair] Calcium Carbonate [Calcium] 600 mg PO DAILY 05/13/18 06/19/18 History Ferrous Sulfate [Feosol] 325 mg PO DAILY 05/13/18 06/19/18 History Multivitamins, Thera [Multivitamin 1 tab PO DAILY 05/13/18 06/19/18 History (formulary)] Ondansetron [Zofran] 4 mg PO Q8HR PRN 06/19/18 06/19/18 History Pantoprazole Sodium [Protonix] 40 mg PO BID 06/19/18 06/19/18 History Allergies Allergy/AdvReac Type Severity Reaction Status Date / Time latex AdvReac states Verified 06/19/18 14:11 "feels like chest tightens" scopolamine AdvReac Unknown Verified 06/19/18 14:11
[2018-06-28 07:17] VITALS: TEMP 98
--- NOTE | 2018-06-28 07:37 | P.HPADDEND ---
H&P Addendum H&P Addendum Date: 06/28/18 Colonoscopy deferred as prep was not completed.
--- NOTE | 2018-06-28 07:53 | P.PCN ---
Date of Procedure: 06/28/18 Description of Procedure: PREOPERATIVE DIAGNOSES: 1. Epigastric abdominal pain. 2. Nausea and vomiting. 3. History of gastrojejunal perforation POSTOPERATIVE DIAGNOSES: 1. Epigastric abdominal pain. 2. Nausea and vomiting. 3. History of gastrojejunal perforation 4. Gastrojejunal ulcers, acute on chronic PROCEDURE PERFORMED: Esophagogastrojejunoscopy SURGEON: Nu Stewart MD ANESTHESIA: MAC. INDICATIONS: The patient is a 52-year-old female who had prior gastrojejunal perforation from ulcers. She presents with intermittent nausea and vomiting, particularly of the epigastric abdominal pain. With her history of Albert-en-Y gastric bypass, upper endoscopy was offered for further evaluation and management. Benefits and risks described. Informed consent was obtained. DESCRIPTION: Patient was brought to the endoscopy suite and laid in the left lateral decubitus position. After adequate IV sedation, a bite block was placed. An Olympus gastroscope was passed along the posterior oropharynx down to the distal esophagus where the squamocolumnar junction was found at approximately 35 cm from the incisors. Her anastomosis was found at 40 cm, consistent with approximately 5 cm gastric pouch. A diaphragmatic hiatal hernia of 3 cm was confirmed. Active gastrojejunal ulceration acute on chronic without bleeding was encountered. Mild gastric stricture was also identified. Dilation was avoided for recent history of perforation and multiple ulcers. The scope was passed to 60 cm of the Albert limb. No remnant of blind jejunal limb was retained. The GI tract was desufflated. The patient tolerated the procedure well. FINDINGS: 1. 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 2. Squamocolumnar junction at 35 cm from the incisors. 3. Anastomosis at 42 cm from the incisors. 4. Gastric pouch 5 cm. PLAN: 1. Will need Carafate to control for symptoms along with proton pump inhibitor 2. Recommend repeat upper endoscopy in 2 weeks. Plan - Discharge Summary New Discharge Prescriptions: No Action ALPRAZolam [Xanax] 0.5 mg PO DAILY PRN PRN Reason: Anxiety SUMAtriptan SUCCINATE [Imitrex] 100 mg PO DAILY PRN PRN Reason: MIGRAINES Levothyroxine Sodium [Synthroid] 37.5 mcg PO HS Umeclidinium [place] [Incruse Ellipta] 1 puff INHALATION RT-DAILY Albuterol Sulfate [Proair Hfa] 1 - 2 puff INHALATION RT-Q6H PRN PRN Reason: Shortness Of Breath Modafinil [Provigil] 200 mg PO BID PRN PRN Reason: SLEEPINESS Vitamin B-12 With Vit C [place] 1 spray NASAL DAILY Multivitamins, Thera [Multivitamin (formulary)] 1 tab PO DAILY Ferrous Sulfate [Feosol] 325 mg PO DAILY Calcium Carbonate [Calcium] 600 mg PO DAILY Aclidinium [place] [Tudorza Pressair] 1 puff INHALATION RT-BID Pantoprazole Sodium [Protonix] 40 mg PO BID Ondansetron [Zofran] 4 mg PO Q8HR PRN PRN Reason: Nausea Discharge Medication List ALPRAZolam [Xanax] 0.5 mg PO DAILY PRN 03/31/15 [History] Levothyroxine Sodium [Synthroid] 37.5 mcg PO HS 11/02/15 [History] SUMAtriptan SUCCINATE [Imitrex] 100 mg PO DAILY PRN 11/02/15 [History] Umeclidinium [place] [Incruse Ellipta] 1 puff INHALATION RT-DAILY 11/05/17 [ History] Albuterol Sulfate [Proair Hfa] 1 - 2 puff INHALATION RT-Q6H PRN 11/21/17 [ History] Modafinil [Provigil] 200 mg PO BID PRN 01/17/18 [History] Vitamin B-12 With Vit C [place] 1 spray NASAL DAILY 02/06/18 [History] Aclidinium [place] [Tudorza Pressair] 1 puff INHALATION RT-BID 05/13/18 [History ] Calcium Carbonate [Calcium] 600 mg PO DAILY 05/13/18 [History] Ferrous Sulfate [Feosol] 325 mg PO DAILY 05/13/18 [History] Multivitamins, Thera [Multivitamin (formulary)] 1 tab PO DAILY 05/13/18 [History ] Ondansetron [Zofran] 4 mg PO Q8HR PRN 06/19/18 [History] Pantoprazole Sodium [Protonix] 40 mg PO BID 06/19/18 [History]
[2018-06-28 08:03] VITALS: RESP 18
[2018-06-28 08:06] VITALS: BP 118/77; PULSE 75
== END | disposition home or self-care (01) ==
LOC: ORWHC2ENDO 06:48
PROVIDERS: ATTEND Surgery Plastic and Reconstructive Surgery
DX: K28.3 Acute gastrojejunal ulcer without hemorrhage or perforation (principal); K28.7 Chronic gastrojejunal ulcer without hemorrhage or perforation; K44.9 Diaphragmatic hernia without obstruction or gangrene; K31.89 Other diseases of stomach and duodenum; Z98.0 Intestinal bypass and anastomosis status; Z98.84 Bariatric surgery status; Z90.3 Acquired absence of stomach [part of]; Z87.19 Personal history of other diseases of the digestive system; K21.9 Gastro-esophageal reflux disease without esophagitis; J44.9 Chronic obstructive pulmonary disease, unspecified; E11.9 Type 2 diabetes mellitus without complications; M79.7 Fibromyalgia; E07.9 Disorder of thyroid, unspecified; G43.909 Migraine, unspecified, not intractable, without status migrainosus; H40.9 Unspecified glaucoma; E03.9 Hypothyroidism, unspecified; E04.1 Nontoxic single thyroid nodule; F41.9 Anxiety disorder, unspecified; Z90.49 Acquired absence of other specified parts of digestive tract; Z86.010 Personal history of colon polyps; Z79.890 Hormone replacement therapy; Z79.899 Other long term (current) drug therapy; Z91.040 Latex allergy status; Z87.891 Personal history of nicotine dependence; Z88.8 Allergy status to other drugs, medicaments and biological substances
CPT/HCPCS: 81025; 43235; J2250; J2405; J2001; J2704

== ENCOUNTER → 2018-07-18 | Day surgery (SDC) | payer OTHER ==
[2018-07-17 14:30] VITALS: BMI 24.7
[~2018-07-18] MED LIST changes: +DEXAMETHASONE SOD PHOSPHATE 10 MG/ML 1 ML VIAL IV ONE; +HYDROmorphone 1 MG/ML 1 ML SYRINGE IVP PRN; -LACTATED RINGERS 1,000 ML IV ONE; +LACTATED RINGERS 1,000 ML IV SCH; +LIDOCAINE 1% 20 ML VIAL (10MG/ML) FOR IV START INTRADERMA PRN; -MIDAZOLAM 2 MG/2 ML VIAL ONE; +ONDANSETRON 4 MG/2 ML VIAL IVP ONE; -ONDANSETRON 4 MG/2 ML VIAL ONE; +SCOPOLAMINE 1.5MG/72HR PATCH TRANSDERM ONE; +fentaNYL (PF) 50 MCG/ML 2 ML AMP ONE
[2018-07-18 06:54] VITALS: TEMP 98.2
--- NOTE | 2018-07-18 07:15 | P.GSHP ---
History of Present Illness H&P Date: 07/18/18 CHIEF COMPLAINT: GERD and colon screen HISTORY OF PRESENT ILLNESS: The patient is a 52-year-old female who presents with gastroesophageal reflux disease and need for colon screen. Upper and lower endoscopy were offered for further evaluation and management. PAST MEDICAL HISTORY: Please see list. PAST SURGICAL HISTORY: Please see list. MEDICATIONS: Please see list. ALLERGIES: Please see list. SOCIAL HISTORY: No illicit drug use FAMILY HISTORY: No reports of Crohn disease or ulcerative colitis. REVIEW OF ORGAN SYSTEMS: CONSTITUTIONAL: No reports of fevers or chills. GI: Denies any blood in stools or constipation. PHYSICAL EXAM: VITAL SIGNS: Stable GENERAL: Well-developed pleasant in no acute distress. HEENT: No scleral icterus. Extraocular movements grossly intact. Moist buccal mucosa. NECK: Supple without lymphadenopathy. CHEST: Unlabored respirations. Equal bilateral excursions. CARDIOVASCULAR: Regular rate and rhythm. Distal 2+ pulses. ABDOMEN: Soft, nondistended. MUSCULOSKELETAL: No clubbing, cyanosis, or edema. ASSESSMENT: 1. Gastroesophageal reflux disease 2. Colon screen. PLAN: 1. Recommend proceeding with an upper and lower endoscopy Past Medical History Past Medical History: Chest Pain / Angina, COPD, Diabetes Mellitus, Eye Disorder , Fibromyalgia, GERD/Reflux, Thyroid Disorder Additional Past Medical History / Comment(s): migraines, hiatal hernia, Insulin Resistance Diabetes., "borderline sleep apnea"., Glaucoma., hypothyroid, thyroid nodule., Gastric Sleeve 03/2016., SOB with activity., stomach ulcer-hx gastrojejunal perforation History of Any Multi-Drug Resistant Organisms: None Reported Past Surgical History: Bariatric Surgery, Breast Surgery, Cholecystectomy, Uterine Ablation Additional Past Surgical History / Comment(s): left carpel tunnel, breast reduction, gastric sleeve (03/2016). 02-18-18 revision to gastric bypass, Past Anesthesia/Blood Transfusion Reactions: Motion Sickness, Postoperative Nausea & Vomiting (PONV) Additional Past Anesthesia/Blood Transfusion Reaction / Comment(s): has never received blood Smoking Status: Former smoker - Past Family History Mother Family Medical History: No Reported History Additional Family Medical History / Comment(s): . Father Additional Family Medical History / Comment(s): fighter pilot w/ plane crash- age 23 Medications and Allergies Home Medications Medication Instructions Recorded Confirmed Type ALPRAZolam [Xanax] 0.5 mg PO DAILY PRN 03/31/15 07/18/18 History Levothyroxine Sodium [Synthroid] 37.5 mcg PO HS 11/02/15 07/18/18 History SUMAtriptan SUCCINATE [Imitrex] 100 mg PO DAILY PRN 11/02/15 07/18/18 History Umeclidinium [place] [Incruse 1 puff INHALATION RT-DAILY 11/05/17 07/18/18 History Ellipta] Albuterol Sulfate [Proair Hfa] 1 - 2 puff INHALATION RT-Q6H PRN 11/21/17 History Modafinil [Provigil] 200 mg PO BID PRN 01/17/18 07/18/18 History Aclidinium [place] [Tudorza 1 puff INHALATION RT-BID 05/13/18 07/18/18 History Pressair] Multivitamins, Thera [Multivitamin 1 tab PO DAILY 05/13/18 07/18/18 History (formulary)] Ondansetron [Zofran] 4 mg PO Q8HR PRN 06/19/18 07/18/18 History Pantoprazole Sodium [Protonix] 40 mg PO BID 06/19/18 07/18/18 History Sucralfate [Carafate] 1 gm PO BID #480 ml 06/28/18 07/18/18 Rx Iron Tab With Vitamin C 1 tab PO DAILY 07/17/18 07/18/18 History Latanoprost [Xalatan 0.005%] 1 drop BOTH EYES HS 07/17/18 07/18/18 History Vitamin B12 [place] 1 spray NASAL Q7D 07/17/18 History Allergies Allergy/AdvReac Type Severity Reaction Status Date / Time latex AdvReac states Verified 07/17/18 14:15 "feels like chest tightens" scopolamine AdvReac Unknown Verified 07/17/18 14:15 Surgical - Exam Vital Signs Temp Pulse Resp BP Pulse Ox 98.2 F 70 20 139/79 98 07/18/18 06:53 07/18/18 06:53 07/18/18 06:53 07/18/18 06:53 07/18/18 06:53
[2018-07-18 08:33] VITALS: BP 131/84; PULSE 64; RESP 18
--- NOTE | 2018-07-18 08:45 | P.PCN ---
Date of Procedure: 07/18/18 Description of Procedure: PREOPERATIVE DIAGNOSIS: Personal history of high risk colon polyps. POSTOPERATIVE DIAGNOSIS: Personal history of high risk colon polyps. Sigmoid tubular adenoma of the colon. OPERATION: Colonoscopy to the ileocecal valve and appendiceal orifice. Colonoscopy with cold forceps biopsy at 25 cm from the anal verge, sigmoid colon. SURGEON: Nu Stewart MD. ANESTHESIA: MAC. INDICATIONS: The patient is a 52-year-old female who presents with multiple high-risk colon polyps. Last colonoscopy 2 years ago. Benefits and risks were described and informed consent was obtained. DESCRIPTION OF PROCEDURE: The patient had undergone Gatorade, MiraLAX and Dulcolax prep. She had been brought into the operating room and laid in the left lateral decubitus position. After adequate intravenous sedation, the rectum was examined with 2% lidocaine jelly. No large external hemorrhoids were encountered. The rectal tone was within normal limits. No lesions were palpated in the rectal vault. An Olympus colonoscope was advanced until the ileocecal valve and appendiceal orifice were clearly viewed. The prep was fair with visualization of the mucosal folds. The scope was removed with visualization of each mucosal fold. No scattered diverticulosis was encountered. At 25 cm from the anal verge, 5 mm colon polyp was removed with cold forceps biopsy. No evidence of focal colitis was found. Retroflexion of the scope demonstrated grade 1 internal hemorrhoids without active bleeding or inflammation. The colon was desufflated. The patient had tolerated the procedure well. Withdrawal time was over 6 minutes. FINDINGS: Internal hemorrhoids, grade 1 No large external hemorrhoids. No arteriovenous malformations. Removal of 1 polyp from the sigmoid: - Removed with cold forceps biopsy at 25 cm from the anal verge, 5 mm adenoma polyp. No focal colitis. RECOMMENDATIONS: Repeat colonoscopy in 3 years, 2020. Plan - Discharge Summary New Discharge Prescriptions: New Metoclopramide [Reglan] 10 mg PO ACHS #30 tab Ondansetron Odt [Zofran ODT] 4 mg PO Q8HR PRN #20 tab PRN Reason: Nausea Continue Sucralfate [Carafate] 1 gm PO BID #480 ml No Action ALPRAZolam [Xanax] 0.5 mg PO DAILY PRN PRN Reason: Anxiety SUMAtriptan SUCCINATE [Imitrex] 100 mg PO DAILY PRN PRN Reason: MIGRAINES Levothyroxine Sodium [Synthroid] 37.5 mcg PO HS Umeclidinium [place] [Incruse Ellipta] 1 puff INHALATION RT-DAILY Albuterol Sulfate [Proair Hfa] 1 - 2 puff INHALATION RT-Q6H PRN PRN Reason: Shortness Of Breath Modafinil [Provigil] 200 mg PO BID PRN PRN Reason: SLEEPINESS Multivitamins, Thera [Multivitamin (formulary)] 1 tab PO DAILY Aclidinium [place] [Tudorza Pressair] 1 puff INHALATION RT-BID Pantoprazole Sodium [Protonix] 40 mg PO BID Ondansetron [Zofran] 4 mg PO Q8HR PRN PRN Reason: Nausea Latanoprost [Xalatan 0.005%] 1 drop BOTH EYES HS Iron Tab With Vitamin C 1 tab PO DAILY Vitamin B12 [place] 1 spray NASAL Q7D Discharge Medication List ALPRAZolam [Xanax] 0.5 mg PO DAILY PRN 03/31/15 [History] Levothyroxine Sodium [Synthroid] 37.5 mcg PO HS 11/02/15 [History] SUMAtriptan SUCCINATE [Imitrex] 100 mg PO DAILY PRN 11/02/15 [History] Umeclidinium [place] [Incruse Ellipta] 1 puff INHALATION RT-DAILY 11/05/17 [ History] Albuterol Sulfate [Proair Hfa] 1 - 2 puff INHALATION RT-Q6H PRN 11/21/17 [ History] Modafinil [Provigil] 200 mg PO BID PRN 01/17/18 [History] Aclidinium [place] [Tudorza Pressair] 1 puff INHALATION RT-BID 05/13/18 [History ] Multivitamins, Thera [Multivitamin (formulary)] 1 tab PO DAILY 05/13/18 [History ] Ondansetron [Zofran] 4 mg PO Q8HR PRN 06/19/18 [History] Pantoprazole Sodium [Protonix] 40 mg PO BID 06/19/18 [History] Iron Tab With Vitamin C 1 tab PO DAILY 07/17/18 [History] Latanoprost [Xalatan 0.005%] 1 drop BOTH EYES HS 07/17/18 [History] Vitamin B12 [place] 1 spray NASAL Q7D 07/17/18 [History] Metoclopramide [Reglan] 10 mg PO ACHS #30 tab 07/31/18 [Rx] Ondansetron Odt [Zofran ODT] 4 mg PO Q8HR PRN #20 tab 07/31/18 [Rx] Sucralfate [Carafate] 1 gm PO BID #480 ml 07/31/18 [Rx] Follow up Appointment(s)/Referral(s): Nu Stewart MD [STAFF PHYSICIAN] - [facility],. [NON-STAFF] - 1 Week Patient Instructions/Handouts: *Surgery [facility] - (Anesthesia) Endoscopy Discharge Instructions, Diet for Stomach Ulcers and Gastritis (GEN), Esophageal Dilation ( DC), Colonoscopy (DC), Upper Endoscopy (DC) Activity/Diet/Wound Care/Special Instructions: Repeat colonoscopy 3 years, 2020 Discharge Disposition: HOME SELF-CARE
--- NOTE | 2018-07-18 08:45 | P.PCN ---
Date of Procedure: 07/18/18 Description of Procedure: PREOPERATIVE DIAGNOSES: 1. Epigastric abdominal pain. 2. Nausea and vomiting. 3. History of gastrojejunal perforation POSTOPERATIVE DIAGNOSES: 1. Epigastric abdominal pain. 2. Nausea and vomiting. 3. History of gastrojejunal perforation 4. Gastrojejunal ulcers, acute on chronic PROCEDURE PERFORMED: Esophagogastrojejunoscopy SURGEON: Nu Stewart MD ANESTHESIA: MAC. INDICATIONS: The patient is a 52-year-old female who had prior gastrojejunal perforation from ulcers. She had previous upper endoscopy demonstrating persistent ulcers along her gastrojejunal anastomosis. She had undergone medical treatment. Now shepresents for follow-up. Benefits and risks described. Informed consent was obtained. DESCRIPTION: Patient was brought to the endoscopy suite and laid in the left lateral decubitus position. After adequate IV sedation, a bite block was placed. An Olympus gastroscope was passed along the posterior oropharynx down to the distal esophagus where the squamocolumnar junction was found at approximately 35 cm from the incisors. Persistent multiple chronic gastrojejunal ulcerations were confirmed without bleeding was encountered. The GI tract was desufflated. The patient tolerated the procedure well. FINDINGS: 1. Persistent chronic gastrojejunal ulcerations PLAN: 1. Continue carafate and increase PPIs to twice daily high-dose. 2. Recommend repeat upper endoscopy 4-6 weeks
--- NOTE | 2018-08-07 12:14 | CDI ---
Outpatient Documentation Clarification Form Date: 08/07/18 CDS/Medical Center Director Name: Joann Phillips Phone: If any questions, call Elsa Moreno Knitting Teacher at [phone] Patient Name: Josefina Bird Admit Date: 07/18/18 Discharge Date: 07/18/18 ATTENTION: The [facility] Coding Staff appreciate your assistance in clarifying documentation. Please respond to the clarification below the line at the bottom and electronically sign. The [facility] Coding staff will review the response and follow-up if needed. Please note: Queries are made part of the Legal Health Record. If you have any questions, please contact the Knitting Teacher. Dear Dr. Stewart, Was a biopsy performed during the EGD portion of the procedure? If so, what was the biopsy method and location? I only ask because the Path Report indicates that a stomach biopsy was taken, yet the Op reports make no mention of it. Thank you for your kind consideration. Please see amended operative report with cold forceps biopsies added KM 08/11/18 @ 17:16 MTDD
== END | disposition home or self-care (01) ==
LOC: ORWHC2ENDO 06:21
PROVIDERS: ATTEND Surgery Plastic and Reconstructive Surgery
DX: Z12.11 Encounter for screening for malignant neoplasm of colon (principal); K29.50 Unspecified chronic gastritis without bleeding; K31.89 Other diseases of stomach and duodenum; K28.3 Acute gastrojejunal ulcer without hemorrhage or perforation; K28.7 Chronic gastrojejunal ulcer without hemorrhage or perforation; K64.0 First degree hemorrhoids; K63.5 Polyp of colon; Z86.010 Personal history of colon polyps; Z98.84 Bariatric surgery status; Z90.3 Acquired absence of stomach [part of]; K21.9 Gastro-esophageal reflux disease without esophagitis; J44.9 Chronic obstructive pulmonary disease, unspecified; E11.9 Type 2 diabetes mellitus without complications; M79.7 Fibromyalgia; E03.9 Hypothyroidism, unspecified; G43.909 Migraine, unspecified, not intractable, without status migrainosus; H40.9 Unspecified glaucoma; E04.1 Nontoxic single thyroid nodule; F41.9 Anxiety disorder, unspecified; Z90.49 Acquired absence of other specified parts of digestive tract; Z79.890 Hormone replacement therapy; Z79.899 Other long term (current) drug therapy; Z88.8 Allergy status to other drugs, medicaments and biological substances; Z91.040 Latex allergy status; Z87.891 Personal history of nicotine dependence
CPT/HCPCS: 88305; 45380; 43239; 43245; J2405; J2001; J3010; J2704; 43266

== ENCOUNTER → 2018-07-31 | Outpatient (CLI) | payer OTHER ==
[2018-07-31 14:44] VITALS: BP 114/82; PULSE 62; TEMP 97.9; BMI 26.2
--- NOTE | 2018-07-31 15:40 | P.PN ---
Subjective Progress Note Date: 07/31/18 HPI: She is still have nausea and having occassional pain. She completed her colonosocpy. She reports new lower pelvic pain. ABDOMEN: Soft, no peritonitis LABS: Vitamin A, iron PLAN: 1. Recommend carafate, omeprazole, and reglan, zofran for nasuea. 2. Colonoscopy in 3 years for high risk 3. Iron infusions for low iron 4. Vitamin A supplement - food alternative 5. Robotic lysis of adhesions 6. Stool softener for later in the new year. Objective - Vital Signs Vital signs: Vital Signs Temp 97.9 F 07/31/18 14:40 Pulse 62 07/31/18 14:40 Resp BP 114/82 07/31/18 14:40 Pulse Ox Intake & Output 07/30/18 07/31/18 07/31/18 18:59 06:59 18:59 Weight 64.864 kg
== END ==
LOC: BARWHC3 13:53
PROVIDERS: ATTEND Surgery Plastic and Reconstructive Surgery
DX: R10.9 Unspecified abdominal pain (principal); R11.0 Nausea
CPT/HCPCS: 99211

== ENCOUNTER → 2018-09-19 | Outpatient (CLI) | payer OTHER ==
[2018-09-19 14:44] LABS: Basophils % (A) 1 %; Eosinophils # (A) 0.1 k/uL (0-0.7); Eosinophils % (A) 2 %; HCT 41.1 % (34.0-46.0); Lymphocytes # (A) 1.7 k/uL (1.0-4.8); Lymphocytes % (A) 32 %; MCH 28.3 pg (25.0-35.0); MCHC 31.7 g/dL (31.0-37.0); MCV 89.1 fL (80.0-100.0); Mean Platelet Volume 6.7; Monocytes # (A) 0.3 k/uL (0-1.0); Monocytes % (A) 5 %; Neutrophils # (A) 3.1 k/uL (1.3-7.7); Neutrophils % (A) 58 %; Platelet Count 261 k/uL (150-450); RBC 4.61 m/uL (3.80-5.40); RDW 14.1 % (11.5-15.5); WBC 5.3 k/uL (3.8-10.6)
[2018-09-19 15:18] LABS: ALT 30 U/L (9-52); AST 23 U/L (14-36); Albumin 4.2 g/dL (3.5-5.0); Alkaline Phosphatase 49 U/L (38-126); Anion Gap 4 mmol/L; Blood Urea Nitrogen 12 mg/dL (7-17); Calcium 9.7 mg/dL (8.4-10.2); Carbon Dioxide 33 mmol/L (22-30); Chloride 105 mmol/L (98-107); Glucose 78 mg/dL (74-99); Potassium 4.2 mmol/L (3.5-5.1); Sodium 142 mmol/L (137-145); Total Bilirubin 0.3 mg/dL (0.2-1.3); Total Protein 6.8 g/dL (6.3-8.2)
== END | disposition home or self-care (01) ==
LOC: LABPAT 14:10
PROVIDERS: ATTEND Surgery Plastic and Reconstructive Surgery
DX: Z01.812 Encounter for preprocedural laboratory examination (principal)
CPT/HCPCS: 80053; 85025; 86850; 86900; 86901

== ENCOUNTER 2018-09-23 07:57 | Day surgery (SDC) | payer OTHER ==
[2018-09-19 09:54] VITALS: BMI 24.7
--- NOTE | 2018-09-23 05:51 | P.GSHP ---
History of Present Illness H&P Date: 09/23/18 DATE OF SERVICE: 09/23/2018 CHIEF COMPLAINT: Status post gastric bypass HISTORY OF PRESENT ILLNESS: Josefina Bird is a 52-year-old female who is status post sleeve gastrectomy to gastric bypass 02/18/2018. She reports new lower abdominal pain since her last surgery in April 2018. PAST MEDICAL HISTORY: 1. Obstructive sleep apnea. 2. Gastroesophageal reflux disease. 3. History of hiatal hernia. 4. Carpal tunnel syndrome. 5. Diabetes type 2. 6. Hypothyroidism. 7. Chronic obstructive pulmonary disease. 8. Anxiety. 9. Colon polyps. 10. Sleep apnea. 11. Morbid obesity, BMI 36.8, initial PAST SURGICAL HISTORY: 1. Uterine ablation. 2. Left carpal tunnel release. 3. Bilateral breast reduction. 4. Upper endoscopy. 5. Lower endoscopy. 6. Status post sleeve gastrectomy. 7. Cholecystectomy. 8. Repair of perforated gastrojejunal ulcer at outside institution, Apr 2018 MEDICATIONS: 1. Imitrex. 2. Synthroid. 3. Multivitamin. 4. Incruse Ellipta. 5. ProAir. 6. Calcium 7. Tudorza with Pressair. 8. Zantac. 9. Xanax. 10. Omeprazole. 11. Metformin 12. Provigil 13. Xalantan eye drops 14. Breo Ellipta 15. Fluorometholone ALLERGIES: Denies. SOCIAL HISTORY: Former tobacco user. FAMILY HISTORY: Pertinent for morbid obesity in her mother. Also no reports of Crohn's disease or ulcerative colitis. Denies any family history of gastrointestinal cancers. She has a mother who has morbid obesity. REVIEW OF SYSTEMS: CONSTITUTIONAL: Her ideal body weight is 135 pounds for her 5 foot 2 frame. Heighest weight of 201 pounds. Prior BMI 36.8. GASTROINTESTINAL: No reports of dumping syndrome. History of colon polyps. Recent history of gastrojejunal ulcer with perforation. ENDOCRINE: Improved insulin resistance. She is no longer on medications for diabetic control. CARDIOVASCULAR: History of hypertension. No palpitations. RESPIRATORY: History of chronic obstructive pulmonary disease. NEURO: History of migraine headaches. No strokes. HEENT: Denies any troubles with vision or hearing. GENITOURINARY: History of endometrial ablation. 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 PSYCH: History of anxiety and depression. HEMATOLOGIC: Denies any easy bruising and bleeding or prior venous thromboembolic event. SKIN: No rash. No skin cancer. PHYSICAL EXAM: VITAL SIGNS: 5 foot 2, 140 pounds. Body mass index 25.6 ABDOMEN: Soft and non-tender. No peritonitis MUSCULOSKELETAL: No clubbing, cyanosis, or edema. GENERAL: Well-developed female in no acute distress. HEENT: No sclera icterus. Extraocular movements grossly intact. Moist buccal mucosa. Head is atraumatic, normocephalic. Hears conversational speech. No nasal drainage. NECK: Supple without lymphadenopathy. No JV distention. CHEST: Non-labored respirations and equal bilateral excursions. CARDIOVASCULAR: Regular rate and rhythm. Palpable 2+ radial pulses. NEUROLOGIC: No focal or lateralizing signs. Cranial nerves II through XII grossly intact. PSYCH: Appropriate affect. Alert and oriented to person, place and time. SKIN: Well-perfused. Good skin turgor. ASSESSMENT: 1. Previous history of morbid obesity. 2. Body mass index reduced from 36.8 down to 26.2 3. Status post gastric bypass. 4. History of perforated gastrojejunal ulcer 5. Chronic obstructive pulmonary disease 6. Personal history of colon polyps 7. Chronic nausea and vomiting 8. Gastroesophageal reflux disease. 9. Vitamin A deficiency 10. Iron deficiency anemia 11. Peritoneal adhesions 12. Chronic constipation PLAN: 1. Robotic lysis of adhesions described for peritoneal adhesions and abdominal pain. 2. DVT prophylaxis 3. Antibiotic prophylaxis Past Medical History Past Medical History: Chest Pain / Angina, COPD, Diabetes Mellitus, Eye Disorder , Fibromyalgia, GERD/Reflux, Thyroid Disorder Additional Past Medical History / Comment(s): migraines, hiatal hernia, Insulin Resistance Diabetes., "borderline sleep apnea"., Glaucoma., hypothyroid, thyroid nodule., Gastric Sleeve 03/2016., SOB with activity., stomach ulcer-hx gastrojejunal perforation History of Any Multi-Drug Resistant Organisms: None Reported Past Surgical History: Bariatric Surgery, Breast Surgery, Cholecystectomy, Uterine Ablation Additional Past Surgical History / Comment(s): left carpel tunnel, breast reduction, gastric sleeve (03/2016). 02-18-18 revision to gastric bypass, , repair of pneumoperitoneum @ [facility] Past Anesthesia/Blood Transfusion Reactions: Motion Sickness, Postoperative Nausea & Vomiting (PONV) Additional Past Anesthesia/Blood Transfusion Reaction / Comment(s): has never received blood Smoking Status: Former smoker - Past Family History Mother Family Medical History: No Reported History Additional Family Medical History / Comment(s): . Father Additional Family Medical History / Comment(s): elevator pilot w/ plane crash- age 23 Medications and Allergies Home Medications Medication Instructions Recorded Confirmed Type ALPRAZolam [Xanax] 0.5 mg PO DAILY PRN 03/31/15 09/19/18 History Levothyroxine Sodium [Synthroid] 37.5 mcg PO HS 11/02/15 09/19/18 History SUMAtriptan SUCCINATE [Imitrex] 100 mg PO DAILY PRN 11/02/15 09/19/18 History Umeclidinium [place] [Incruse 1 puff INHALATION RT-DAILY 11/05/17 09/19/18 History Ellipta] Albuterol Sulfate [Proair Hfa] 1 - 2 puff INHALATION RT-Q6H PRN 11/21/17 History Modafinil [Provigil] 200 mg PO BID PRN 01/17/18 09/19/18 History Aclidinium [place] [[place] 1 puff INHALATION RT-BID 05/13/18 09/19/18 History Pressair] Multivitamins, Thera [Multivitamin 1 tab PO DAILY 05/13/18 09/19/18 History (formulary)] Ondansetron [Zofran] 4 mg PO Q8HR PRN 06/19/18 09/19/18 History Pantoprazole Sodium [Protonix] 40 mg PO BID 06/19/18 09/19/18 History Ferrous Sulfate [Feosol] 325 mg PO DAILY 07/17/18 09/19/18 History Latanoprost [Xalatan 0.005%] 1 drop BOTH EYES HS 07/17/18 09/19/18 History Vitamin B12 [place] 1 spray NASAL Q7D 07/17/18 09/19/18 History Sucralfate [Carafate] 1 gm PO BID #480 ml 07/31/18 09/19/18 Rx Hyaluronic Acid 1 cap PO DAILY 09/19/18 History Omeprazole [PriLOSEC] 40 mg PO BID 09/19/18 09/19/18 History Vitamin A(Unknown Dose) 1 cap PO DAILY 09/19/18 History Vitamin C/Biotin [Hair, Skin and 1 tab PO DAILY 09/19/18 09/19/18 History Nails] Vitamin D(Unknown Dose) 1 cap PO DAILY 09/19/18 History Allergies Allergy/AdvReac Type Severity Reaction Status Date / Time latex AdvReac states Verified 09/19/18 09:16 "feels like chest tightens" scopolamine AdvReac contraindictated Verified 09/19/18 09:16 with glaucoma
[~2018-09-23 07:57] MED LIST changes: +ACETAMINOPHEN IV (For NPO) 1,000 MG in EMPTY BAG 1 BAG IVPB ONE; +HEPARIN SODIUM,PORCINE 5,000 UNIT/ML 1 ML VIAL SQ ONE; +HYDROmorphone 0.5 MG/0.5 ML SYRINGE IVP PRN; -HYDROmorphone 1 MG/ML 1 ML SYRINGE IVP PRN; -LIDOCAINE 1% 20 ML VIAL (10MG/ML) FOR IV START INTRADERMA PRN; -LIDOCAINE 1% INJ 10MG/ML (20 ML MDV) ONE; +MIDAZOLAM (PF) 2 MG/2 ML VIAL IV PRN; -ONDANSETRON 4 MG/2 ML VIAL IVP ONE; -PROPOFOL 10 MG/ML 20 ML VIAL IV ONE; +Pre Op ABX Message 1 EACH MISC MISCELLANE ONE; -SCOPOLAMINE 1.5MG/72HR PATCH TRANSDERM ONE; +ceFAZolin IN SWFI 2 GM/20 ML SYRINGE IVP STA; -fentaNYL (PF) 50 MCG/ML 2 ML AMP ONE
[2018-09-23] MEDS ORDERED: LIDOCAINE 1% 20 ML VIAL (10MG/ML) FOR IV START INTRADERMA ONE (08:27)
[2018-09-23] MEDS: ONDANSETRON 4 MG/2 ML VIAL IVP ONE ×2 (08:27→11:04)
[2018-09-23] MEDS ORDERED: LACTATED RINGERS 1,000 ML IV ONE (08:27)
[2018-09-23] MEDS ORDERED: ePHEDrine SULFATE/0.9% NACL/PF 50 MG/5 ML SYRINGE IV ONE (09:22)
[2018-09-23] MEDS ORDERED: fentaNYL (PF) 50 MCG/ML 2 ML AMP ONE (09:22)
[2018-09-23] MEDS ORDERED: MIDAZOLAM 2 MG/2 ML VIAL ONE (09:22)
[2018-09-23] MEDS ORDERED: LIDOCAINE 1% INJ 10MG/ML (20 ML MDV) ONE (09:22)
[2018-09-23] MEDS ORDERED: PROPOFOL 10 MG/ML 20 ML VIAL IV ONE (09:22)
[2018-09-23] MEDS ORDERED: ROCURONIUM BROMIDE 10 MG/ML 10 ML VIAL IV ONE (09:22)
[2018-09-23] MEDS ORDERED: BUPIVACAIN-EPI 0.25%-1:200,000 30 ML VIAL SQ ONE (09:51)
[2018-09-23 10:41] VITALS: TEMP 97.1
--- NOTE | 2018-09-23 11:02 | P.OP ---
Date of Procedure: 09/23/18 Description of Procedure: SURGEON: SENG BHATIA MD MOLDER MEAT: None. PREOPERATIVE DIAGNOSES: 1. Bilateral lower quadrant abdominal pain. 2. History of peritoneal adhesions. 3. Chronic nausea 4. Previous history of morbid obesity. 5. Body mass index reduced from 36.8 down to 25.6 6. Status post gastric bypass. 7. History of perforated gastrojejunal ulcer 8. Chronic obstructive pulmonary disease 9. Gastroesophageal reflux disease. POSTOPERATIVE DIAGNOSES: 1. Bilateral lower quadrant abdominal pain. 2. History of peritoneal adhesions. 3. Chronic nausea 4. Previous history of morbid obesity. 5. Body mass index reduced from 36.8 down to 25.6 6. Status post gastric bypass. 7. History of perforated gastrojejunal ulcer 8. Chronic obstructive pulmonary disease 9. Gastroesophageal reflux disease. 10. Peritoneal adhesions PROCEDURES PERFORMED: 1. Diagnostic laparoscopy. 2. Laparoscopic lysis of adhesions greater omentum to abdominal wall left upper quadrant. ANESTHESIA: General with local ESTIMATED BLOOD LOSS: 2 mL. SPECIMENS REMOVED: None. COMPLICATIONS: None. OPERATIVE FINDINGS: 1. Omental adhesion to abdominal wall, left upper quadrant. 2. No adhesions of the lower abdomen found. 3. Non-dilated intestine of the lower abdomen. INDICATIONS: The patient is a 52-year-old male with history of chronic of the lower abdomen. She had completed upper and lower endoscopy. She has a past history of emergent repair of gastric perforation and has developed lower abdominal pain since then with risk of adhesions. Multiple diagnostic studies were also obtained. Given the severity of her symptoms, she elected for surgical intervention. Benefits and risks, including possibility of open technique were described at length. Informed consent was obtained. DESCRIPTION OF PROCEDURE: In the preoperative area, the location of her abdominal pain was noted. Patient was brought to the operating room, laid in supine position. After general induction, the abdomen was prepped and draped in standard sterile fashion. Prior to incision, a timeout protocol was confirmed with surgical team regarding patient's name including procedure to be performed. Preoperative medications including antibiotics were given. Additionally, bilateral SCDs including heparin 5000 units was administered. A 5 mm laparoscopic trocar entry performed of the left upper quadrant after anesthetizing the skin with local anesthetic. Diagnostic laparoscopy demonstrated adhesions of the left upper quadrant where adhesions of the greater omentum was adherent to the abdominal wall. The lower abdomen was complete unremarkable for peritoneal adhesions. The small bowel was unremarkable in the pelvis. The bilateral groins were unremarkable for inguinal hernias. The liver surface was completely unremarkable. No gross small bowel dilatation was encountered. Another two 5-mm trocars were placed along the right upper abdomen and above the umbilicus under direct localization. The common channel was investigated to the jejunostomy and amisha limb distally. Using laparoscopic disposable scissors, the adhesion of the left upper abdomen and flank was sharply divided. The small bowel was investigated using atraumatic graspers especially with special attention to the lower abdomen and left upper quadrant. Final inspection of the abdomen demonstrated adequate hemostasis including no enterotomies. All instruments and pneumoperitoneum were evacuated from the abdominal cavity. Local anesthetis was infiltrated in all wounds for postop analgesia. Exofin was applied to the skin after reapproximating the incisions with 4-0 Monocryl as described. At the end of the procedure, needle, sponge, and instrument count was verified correct by instructor adjunct surgical technician. The patient had tolerated the procedure well, was taken to the postanesthesia care unit in stable condition. Intraoperative abdominal films were described and discussed with the patient's family who were overall pleased with the level of care. Plan - Discharge Summary Discharge Rx Participant: No New Discharge Prescriptions: New Hydrocodone/Acetaminophen [[place] 7.5-325] 1 tab PO Q4HR PRN 3 Days #18 tab PRN Reason: Pain Ondansetron Odt [Zofran ODT] 4 mg PO Q8HR PRN #30 tab PRN Reason: Nausea Continue ALPRAZolam [Xanax] 0.5 mg PO DAILY PRN PRN Reason: Anxiety SUMAtriptan SUCCINATE [Imitrex] 100 mg PO DAILY PRN PRN Reason: MIGRAINES Levothyroxine Sodium [Synthroid] 37.5 mcg PO HS Umeclidinium [place] [Incruse Ellipta] 1 puff INHALATION RT-DAILY Albuterol Sulfate [Proair Hfa] 1 - 2 puff INHALATION RT-Q6H PRN PRN Reason: Shortness Of Breath Modafinil [Provigil] 200 mg PO BID PRN PRN Reason: SLEEPINESS Multivitamins, Thera [Multivitamin (formulary)] 1 tab PO DAILY Aclidinium [place] [Tudorza Pressair] 1 puff INHALATION RT-BID Pantoprazole Sodium [Protonix] 40 mg PO BID Ondansetron [Zofran] 4 mg PO Q8HR PRN PRN Reason: Nausea Latanoprost [Xalatan 0.005%] 1 drop BOTH EYES HS Ferrous Sulfate [Iron (65 MG Elemental)] 325 mg PO DAILY Vitamin B12 [place] 1 spray NASAL Q7D Sucralfate [Carafate] 1 gm PO BID #480 ml Vitamin C/Biotin [Hair, Skin and Nails] 1 tab PO DAILY Vitamin D(Unknown Dose) 1 cap PO DAILY Vitamin A(Unknown Dose) 1 cap PO DAILY Discontinued Omeprazole [PriLOSEC] 40 mg PO BID Hyaluronic Acid 1 cap PO DAILY Discharge Medication List ALPRAZolam [Xanax] 0.5 mg PO DAILY PRN 03/31/15 [History] Levothyroxine Sodium [Synthroid] 37.5 mcg PO HS 11/02/15 [History] SUMAtriptan SUCCINATE [Imitrex] 100 mg PO DAILY PRN 11/02/15 [History] Umeclidinium [place] [Incruse Ellipta] 1 puff INHALATION RT-DAILY 11/05/17 [ History] Albuterol Sulfate [Proair Hfa] 1 - 2 puff INHALATION RT-Q6H PRN 11/21/17 [ History] Modafinil [Provigil] 200 mg PO BID PRN 01/17/18 [History] Aclidinium [place] [Tudorza Pressair] 1 puff INHALATION RT-BID 05/13/18 [History ] Multivitamins, Thera [Multivitamin (formulary)] 1 tab PO DAILY 05/13/18 [History ] Ondansetron [Zofran] 4 mg PO Q8HR PRN 06/19/18 [History] Pantoprazole Sodium [Protonix] 40 mg PO BID 06/19/18 [History] Ferrous Sulfate [Iron (65 MG Elemental)] 325 mg PO DAILY 07/17/18 [History] Latanoprost [Xalatan 0.005%] 1 drop BOTH EYES HS 07/17/18 [History] Vitamin B12 [place] 1 spray NASAL Q7D 07/17/18 [History] Sucralfate [Carafate] 1 gm PO BID #480 ml 07/31/18 [Rx] Vitamin A(Unknown Dose) 1 cap PO DAILY 09/19/18 [History] Vitamin C/Biotin [Hair, Skin and Nails] 1 tab PO DAILY 09/19/18 [History] Vitamin D(Unknown Dose) 1 cap PO DAILY 09/19/18 [History] Hydrocodone/Acetaminophen [[place] 7.5-325] 1 tab PO Q4HR PRN 3 Days #18 tab 09/23 [Rx] Ondansetron Odt [Zofran ODT] 4 mg PO Q8HR PRN #30 tab 09/23/18 [Rx] Follow up Appointment(s)/Referral(s): [facility] Center,. [NON-STAFF] - 09/27/18 10:00 am Patient Instructions/Handouts: Lysis of Abdominal Adhesions (IP) Activity/Diet/Wound Care/Special Instructions: Liquid diet today. May shower. No bathtub soaks for 2 weeks, 10/07/18 Discharge Disposition: HOME SELF-CARE
[2018-09-23 12:17] VITALS: BP 127/76; PULSE 85; RESP 18
== END 2018-09-23 12:30 | disposition home or self-care (01) ==
LOC: OR 07:57
PROVIDERS: ATTEND Surgery Plastic and Reconstructive Surgery
DX: K66.0 Peritoneal adhesions (postprocedural) (postinfection) (principal); J44.9 Chronic obstructive pulmonary disease, unspecified; K21.9 Gastro-esophageal reflux disease without esophagitis; F41.9 Anxiety disorder, unspecified; Z87.11 Personal history of peptic ulcer disease; Z98.84 Bariatric surgery status; Z86.39 Personal history of other endocrine, nutritional and metabolic disease; G47.33 Obstructive sleep apnea (adult) (pediatric); Z87.19 Personal history of other diseases of the digestive system; E11.9 Type 2 diabetes mellitus without complications; E03.9 Hypothyroidism, unspecified; G43.909 Migraine, unspecified, not intractable, without status migrainosus; F32.9 Major depressive disorder, single episode, unspecified; M47.9 Spondylosis, unspecified; M16.0 Bilateral primary osteoarthritis of hip; E50.9 Vitamin A deficiency, unspecified; D50.9 Iron deficiency anemia, unspecified; R40.0 Somnolence; Z86.010 Personal history of colon polyps; Z87.891 Personal history of nicotine dependence; Z90.49 Acquired absence of other specified parts of digestive tract; Z79.84 Long term (current) use of oral hypoglycemic drugs; Z79.890 Hormone replacement therapy; Z79.51 Long term (current) use of inhaled steroids; Z79.899 Other long term (current) drug therapy; K59.09 Other constipation; Z88.8 Allergy status to other drugs, medicaments and biological substances; Z91.040 Latex allergy status
CPT/HCPCS: 49329; J2250; J1644; J1100; J2405; J2001; J3010; J0131; J2704; J0690; 86850; 86900; 86901

== ENCOUNTER → 2018-09-27 | Outpatient (CLI) | payer OTHER ==
[2018-09-27 10:31] VITALS: RESP 16
--- NOTE | 2018-09-27 12:33 | P.PN ---
Subjective Progress Note Date: 09/27/18 DATE OF SERVICE: 09/27/2018 CHIEF COMPLAINT: Status post gastric bypass HISTORY OF PRESENT ILLNESS: Josefina Bird is a 53-year-old female who is status post sleeve gastrectomy to gastric bypass 02/18/2018. She is POD 4, following lysis of adhesions for lower abdominal pain. Findings confirmed no adhesions of the lower abdomen. She reports chronic nausea and has history of chronic ulcers despite medical treatment Her previous weight was 201 pounds. Today she comes in weighing 143 pounds. She has maintained 58 pound weight loss. Percent excess weight loss 88 %. Body mass index reduced from 36.8 down to 26.2. PHYSICAL EXAM: VITAL SIGNS: 5 foot 2, 143 pounds. Body mass index 26.2 Vital Signs Temp Pulse Resp 16 09/27/18 10:29 BP Pulse Ox ABDOMEN: Soft and non-tender. No peritonitis MUSCULOSKELETAL: No clubbing, cyanosis, or edema. GENERAL: Well-developed female in no acute distress. HEENT: No sclera icterus. Extraocular movements grossly intact. Moist buccal mucosa. Head is atraumatic, normocephalic. Hears conversational speech. No nasal drainage. NECK: Supple without lymphadenopathy. No JV distention. CHEST: Non-labored respirations and equal bilateral excursions. CARDIOVASCULAR: Regular rate and rhythm. Palpable 2+ radial pulses. NEUROLOGIC: No focal or lateralizing signs. Cranial nerves II through XII grossly intact. PSYCH: Appropriate affect. Alert and oriented to person, place and time. SKIN: Well-perfused. Good skin turgor. ASSESSMENT: 1. Previous history of morbid obesity. 2. Body mass index reduced from 36.8 down to 26.2 3. Status post gastric bypass. 4. History of perforated gastrojejunal ulcer 5. Lower abdominal pain. 6. Chronic gastric ulcers. PLAN: 1. Images reviewed from surgery. 2. Recommend follow up with landfill attendant for lower abdominal pain. 3. Still is nauseated with history of ulcers. 4. May need referral to [facility]. 5. Repeat upper scope for ulcers. Objective - Vital Signs Vital signs: Vital Signs Temp Pulse Resp 16 09/27/18 10:29 BP Pulse Ox
== END | disposition home or self-care (01) ==
LOC: BARWHC3 09:58
PROVIDERS: ATTEND Surgery Plastic and Reconstructive Surgery
DX: R10.30 Lower abdominal pain, unspecified (principal); R11.0 Nausea
CPT/HCPCS: 99211

== ENCOUNTER 2018-10-02 10:07 | Day surgery (SDC) | payer OTHER ==
[2018-10-01 14:20] VITALS: BMI 24.7
--- NOTE | 2018-10-02 09:35 | P.GSHP ---
History of Present Illness H&P Date: 10/02/18 CHIEF COMPLAINT: GERD HISTORY OF PRESENT ILLNESS: The patient is a 53-year-old female who presents reports gastroesophageal reflux disease. Upper endoscopy was offered for further evaluation and management. PAST MEDICAL HISTORY: Please see list. PAST SURGICAL HISTORY: Please see list. MEDICATIONS: Please see list. ALLERGIES: Please see list. SOCIAL HISTORY: No illicit drug use FAMILY HISTORY: No reports of Crohn disease or ulcerative colitis. REVIEW OF ORGAN SYSTEMS: CONSTITUTIONAL: No reports of fevers or chills. GI: Denies any blood in stools or constipation. PHYSICAL EXAM: VITAL SIGNS: Stable GENERAL: Well-developed and pleasant in no acute distress. HEENT: No scleral icterus. Extraocular movements grossly intact. Moist buccal mucosa. NECK: Supple without lymphadenopathy. CHEST: Unlabored respirations. Equal bilateral excursions. CARDIOVASCULAR: Regular rate and rhythm. Distal 2+ pulses. ABDOMEN: Soft, nondistended. MUSCULOSKELETAL: No clubbing, cyanosis, or edema. ASSESSMENT: 1. Gastroesophageal reflux disease PLAN: 1. Recommend proceeding with an upper endoscopy Past Medical History Past Medical History: Chest Pain / Angina, COPD, Diabetes Mellitus, Eye Disorder , Fibromyalgia, GERD/Reflux, Thyroid Disorder Additional Past Medical History / Comment(s): migraines, hiatal hernia, Insulin Resistance Diabetes., "borderline sleep apnea"., Glaucoma., hypothyroid, thyroid nodule., Gastric Sleeve 03/2016., SOB with activity., stomach ulcer-hx gastrojejunal perforation, repair of pneumoperitoneum @ [facility] History of Any Multi-Drug Resistant Organisms: None Reported Past Surgical History: Bariatric Surgery, Breast Surgery, Cholecystectomy, Uterine Ablation Additional Past Surgical History / Comment(s): left carpel tunnel, breast reduction, gastric sleeve (03/2016). 02-18-18 revision to gastric bypass, Apr Past Anesthesia/Blood Transfusion Reactions: Motion Sickness, Postoperative Nausea & Vomiting (PONV) Additional Past Anesthesia/Blood Transfusion Reaction / Comment(s): has never received blood Smoking Status: Former smoker - Past Family History Mother Family Medical History: No Reported History Additional Family Medical History / Comment(s): . Father Additional Family Medical History / Comment(s): pilot safety inspector w/ plane crash- age 23 Medications and Allergies Home Medications Medication Instructions Recorded Confirmed Type ALPRAZolam [Xanax] 0.5 mg PO DAILY PRN 03/31/15 10/01/18 History Levothyroxine Sodium [Synthroid] 37.5 mcg PO HS 11/02/15 10/01/18 History SUMAtriptan SUCCINATE [Imitrex] 100 mg PO DAILY PRN 11/02/15 10/01/18 History Umeclidinium [place] [Incruse 1 puff INHALATION RT-DAILY 11/05/17 10/01/18 History Ellipta] Albuterol Sulfate [Proair Hfa] 1 - 2 puff INHALATION RT-Q6H PRN 11/21/17 History Modafinil [Provigil] 200 mg PO BID PRN 01/17/18 10/01/18 History Aclidinium [place] [[place]udorza 1 puff INHALATION RT-BID 05/13/18 10/01/18 History Pressair] Multivitamins, Thera [Multivitamin 1 tab PO DAILY 05/13/18 10/01/18 History (formulary)] Ondansetron [Zofran] 4 mg PO Q8HR 06/19/18 10/01/18 History Pantoprazole Sodium [Protonix] 40 mg PO BID 06/19/18 10/01/18 History Ferrous Sulfate [Iron (65 MG 325 mg PO DAILY 07/17/18 10/01/18 History Elemental)] Latanoprost [Xalatan 0.005%] 1 drop BOTH EYES HS 07/17/18 10/01/18 History Vitamin B12 [place] 1 spray NASAL Q7D 07/17/18 10/01/18 History Sucralfate [Carafate] 1 gm PO BID #480 ml 07/31/18 10/01/18 Rx Vitamin A(Unknown Dose) 1 cap PO DAILY 09/19/18 10/01/18 History Vitamin C/Biotin [Hair, Skin and 1 tab PO DAILY 09/19/18 10/01/18 History Nails] Vitamin D(Unknown Dose) 1 cap PO DAILY 09/19/18 10/01/18 History Hydrocodone/Acetaminophen [[place] 1 tab PO Q4HR PRN 3 Days #18 tab 09/23/1810/01 Rx 7.5-325] Ondansetron Odt [Zofran ODT] 4 mg PO Q8HR PRN #30 tab 09/23/18 10/01/18 Rx Allergies Allergy/AdvReac Type Severity Reaction Status Date / Time latex AdvReac states Verified 10/01/18 14:08 "feels like chest tightens" scopolamine AdvReac contraindictated Verified 10/01/18 14:08 with glaucoma
[~2018-10-02 10:07] MED LIST changes: -ACETAMINOPHEN IV (For NPO) 1,000 MG in EMPTY BAG 1 BAG IVPB ONE; -DEXAMETHASONE SOD PHOSPHATE 10 MG/ML 1 ML VIAL IV ONE; -HEPARIN SODIUM,PORCINE 5,000 UNIT/ML 1 ML VIAL SQ ONE; -HYDROmorphone 0.5 MG/0.5 ML SYRINGE IVP PRN; +LIDOCAINE 1% 20 ML VIAL (10MG/ML) FOR IV START INTRADERMA PRN; -MIDAZOLAM (PF) 2 MG/2 ML VIAL IV PRN; -Pre Op ABX Message 1 EACH MISC MISCELLANE ONE; -ceFAZolin IN SWFI 2 GM/20 ML SYRINGE IVP STA
[2018-10-02 10:23] VITALS: RESP 16; TEMP 98.4
[2018-10-02] MEDS ORDERED: ONDANSETRON 4 MG/2 ML VIAL IVP ONE (10:40)
[2018-10-02] MEDS ORDERED: LIDOCAINE 1% INJ 10MG/ML (20 ML MDV) ONE (11:43)
[2018-10-02] MEDS ORDERED: PROPOFOL 10 MG/ML 20 ML VIAL IV ONE (11:43)
--- NOTE | 2018-10-02 12:09 | P.PCN ---
Date of Procedure: 10/02/18 Description of Procedure: PREOPERATIVE DIAGNOSIS: Dysphagia. Gastrojejunal stricture with chronic ulcer without perforation POSTOPERATIVE DIAGNOSIS: Dysphagia. Gastrojejunal stricture with chronic ulcer without perforation OPERATION: Esophagogastrojejunoscopy SURGEON: Nu Stewart MD ANESTHESIA: MAC. INDICATIONS: The patient is a 53-year-old female who presents with a history of dysphagia, gastric bypass including nausea and vomiting. Benefits and risks of the procedure were described. Informed consent was obtained. DESCRIPTION: The patient was brought into the endoscopy suite and laid in the left lateral decubitus position. After a timeout was confirmed, the procedure was initiated. An Olympus gastroscope was passed along the posterior oropharynx down to the distal esophagus where the squamocolumnar junction was unremarkable. The gastric pouch was entered. A gastrojejunal stricture of 15 mm was found as the adult gastroscope was 9.5 mm in size. Persistent chronic gastrojejunal marginal ulcer was encountered shallow at least 3 was found distal to her gastric pouch. No full-thickness injury was encountered. The GI tract was desufflated. The patient tolerated the procedure well. FINDINGS: Stricture of approximately 15 mm encountered not dilated secondary to severity of marginal ulcer Chronic gastrojejunal ulcerations encountered RECOMMENDATIONS: Continue Carafate. Continue high-dose omeprazole Plan - Discharge Summary Discharge Rx Participant: Yes New Discharge Prescriptions: No Action ALPRAZolam [Xanax] 0.5 mg PO DAILY PRN PRN Reason: Anxiety SUMAtriptan SUCCINATE [Imitrex] 100 mg PO DAILY PRN PRN Reason: MIGRAINES Levothyroxine Sodium [Synthroid] 37.5 mcg PO HS Umeclidinium [place] [Incruse Ellipta] 1 puff INHALATION RT-DAILY Albuterol Sulfate [Proair Hfa] 1 - 2 puff INHALATION RT-Q6H PRN PRN Reason: Shortness Of Breath Modafinil [Provigil] 200 mg PO BID PRN PRN Reason: SLEEPINESS Multivitamins, Thera [Multivitamin (formulary)] 1 tab PO DAILY Aclidinium [place] [Tudorza Pressair] 1 puff INHALATION RT-BID Pantoprazole Sodium [Protonix] 40 mg PO BID Ondansetron [Zofran] 4 mg PO Q8HR Latanoprost [Xalatan 0.005%] 1 drop BOTH EYES HS Ferrous Sulfate [Iron (65 MG Elemental)] 325 mg PO DAILY Vitamin B12 [place] 1 spray NASAL Q7D Sucralfate [Carafate] 1 gm PO BID #480 ml Vitamin C/Biotin [Hair, Skin and Nails] 1 tab PO DAILY Vitamin D(Unknown Dose) 1 cap PO DAILY Vitamin A(Unknown Dose) 1 cap PO DAILY Hydrocodone/Acetaminophen [[place] 7.5-325] 1 tab PO Q4HR PRN 3 Days #18 tab PRN Reason: Pain Ondansetron Odt [Zofran ODT] 4 mg PO Q8HR PRN #30 tab PRN Reason: Nausea Discharge Medication List ALPRAZolam [Xanax] 0.5 mg PO DAILY PRN 03/31/15 [History] Levothyroxine Sodium [Synthroid] 37.5 mcg PO HS 11/02/15 [History] SUMAtriptan SUCCINATE [Imitrex] 100 mg PO DAILY PRN 11/02/15 [History] Umeclidinium [place] [Incruse Ellipta] 1 puff INHALATION RT-DAILY 11/05/17 [ History] Albuterol Sulfate [Proair Hfa] 1 - 2 puff INHALATION RT-Q6H PRN 11/21/17 [ History] Modafinil [Provigil] 200 mg PO BID PRN 01/17/18 [History] Aclidinium [place] [Tudorza [place]] 1 puff INHALATION RT-BID 05/13/18 [History ] Multivitamins, Thera [Multivitamin (formulary)] 1 tab PO DAILY 05/13/18 [History ] Ondansetron [Zofran] 4 mg PO Q8HR 06/19/18 [History] Pantoprazole Sodium [Protonix] 40 mg PO BID 06/19/18 [History] Ferrous Sulfate [Iron (65 MG Elemental)] 325 mg PO DAILY 07/17/18 [History] Latanoprost [Xalatan 0.005%] 1 drop BOTH EYES HS 07/17/18 [History] Vitamin B12 [place] 1 spray NASAL Q7D 07/17/18 [History] Sucralfate [Carafate] 1 gm PO BID #480 ml 07/31/18 [Rx] Vitamin A(Unknown Dose) 1 cap PO DAILY 09/19/18 [History] Vitamin C/Biotin [Hair, Skin and Nails] 1 tab PO DAILY 09/19/18 [History] Vitamin D(Unknown Dose) 1 cap PO DAILY 09/19/18 [History] Hydrocodone/Acetaminophen [[place] 7.5-325] 1 tab PO Q4HR PRN 3 Days #18 tab 09/23 [Rx] Ondansetron Odt [Zofran ODT] 4 mg PO Q8HR PRN #30 tab 09/23/18 [Rx] Follow up Appointment(s)/Referral(s): [facility] [[facility]-STAFF] - 11/06/18 Patient Instructions/Handouts: Diet for Stomach Ulcers and Gastritis (ED) Discharge Disposition: HOME SELF-CARE
[2018-10-02 12:26] VITALS: BP 126/82; PULSE 60
== END 2018-10-02 12:42 | disposition home or self-care (01) ==
LOC: ORWHC2ENDO 10:07
PROVIDERS: ATTEND Surgery Plastic and Reconstructive Surgery
DX: K28.7 Chronic gastrojejunal ulcer without hemorrhage or perforation (principal); K21.9 Gastro-esophageal reflux disease without esophagitis; K44.9 Diaphragmatic hernia without obstruction or gangrene; E11.9 Type 2 diabetes mellitus without complications; I20.9 Angina pectoris, unspecified; J44.9 Chronic obstructive pulmonary disease, unspecified; H40.9 Unspecified glaucoma; M79.7 Fibromyalgia; G43.909 Migraine, unspecified, not intractable, without status migrainosus; E03.9 Hypothyroidism, unspecified; G47.30 Sleep apnea, unspecified; Z98.84 Bariatric surgery status; Z87.891 Personal history of nicotine dependence; Z79.890 Hormone replacement therapy; Z79.899 Other long term (current) drug therapy; Z88.8 Allergy status to other drugs, medicaments and biological substances; Z91.040 Latex allergy status
CPT/HCPCS: 43235; J2405; J2001; J2704

== ENCOUNTER → 2018-10-15 | Outpatient (CLI) | payer OTHER | LOC: LABWHC1 13:32 | PROVIDERS: ATTEND Physician Assistant | DX: L98.499 Non-pressure chronic ulcer of skin of other sites with unspecified severity (principal) | CPT/HCPCS: 36415; 82941 ==

== ENCOUNTER → 2018-10-29 | Outpatient (CLI) | payer OTHER ==
[2018-10-29 11:34] VITALS: BP 133/84; PULSE 69; RESP 18; TEMP 97.4; BMI 26.0
--- NOTE | 2018-10-29 12:43 | P.HPOB ---
History of Present Illness H&P Date: 10/29/18 Chief Complaint: The patient is here for her routine gynecologic exam. This is a 53-year-old with an LMP of 2005. She has been amenorrheic since her endometrial ablation in 2004. She states she has a long history of low abdominal pain which has been behind the pubic region which has felt like burning or squeezing and has been fairly constant for years. She states that pain could get up to 8 out of 10 at times. More recently, she developed low abdominal and pelvic pain which more resembles menstrual like cramping. On 10/24/2018, the cramping became fairly severe and she states that would have been rated at "12 out of 10". She states she almost went to the emergency room, but did not go. The pain did improve and she now rates it at a 7 out of 10. She states she has been dealing with abdominal pains and chronic nausea since her Albert-en-Y bariatric surgery done in April 2018. She also underwent an adhesiolysis surgery earlier this year by Dr. Hernandez and she has since recommended her to go to the [facility] because of abdominal pains that and G.I. problems that she has been having. She denies any vaginal bleeding. She believes she had gone through a menopausal change a few years after her endometrial ablation because of hot flashes that she had at that time. Review of Systems The patient has lost about 13 pounds since her last annual exam. She has undergone bariatric surgery revision last year. She denies respiratory or cardiac problems. G.I.: she states she has had nausea 24 hours a day since her Albert-en-Y bariatric revision in April 2018. She has been also having chronic abdominal pains as described in the HPI. Past Medical History Past Medical History: Chest Pain / Angina, COPD, Diabetes Mellitus, Eye Disorder, Fibromyalgia, GERD/Reflux, Thyroid Disorder Additional Past Medical History / Comment(s): migraines, hiatal hernia, Insulin Resistance Diabetes., "borderline sleep apnea"., Glaucoma., hypothyroid, thyroid nodule., Gastric Sleeve 03/2016., SOB with activity., stomach ulcer-hx gastrojejunal perforation, repair of pneumoperitoneum @ [facility] History of Any Multi-Drug Resistant Organisms: None Reported Past Surgical History: Bariatric Surgery, Breast Surgery, Cholecystectomy, Uterine Ablation Additional Past Surgical History / Comment(s): left carpel tunnel, breast reduction, gastric sleeve (03/2016). 02-18-18 revision to gastric bypass, Albert-en-Y 02/2018 with surgery for pneumoperitoneum 04/2018. Adhesiolysis 09/2018. [place] noscopy with upper endoscopy 2017. Past Anesthesia/Blood Transfusion Reactions: Motion Sickness, Postoperative Nausea & Vomiting (PONV) Additional Past Anesthesia/Blood Transfusion Reaction / Comment(s): has never received blood Past Psychological History: Anxiety Additional Psychological History / Comment(s): pt is independant.drives, lives with her son. 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 Smoking Status: Former smoker Past Alcohol Use History: Rare (1 per month) Additional Past Alcohol Use History / Comment(s): started smoking at age 16(1981), smoked 1ppd. quit 2011 Past Drug Use History: None Reported Additional History: She is and is not seeing anybody at this time. 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 - Past Family History Mother Additional Family Medical History / Comment(s): Emphysema. Maternal great aunt had breast cancer. Father Additional Family Medical History / Comment(s): drone pilot w/ plane crash- age 23. Paternal grandmother had breast cancer. Medications and Allergies Home Medications Medication Instructions Recorded Confirmed Type ALPRAZolam [Xanax] 0.5 mg PO DAILY PRN 03/31/15 10/29/18 History Levothyroxine Sodium [Synthroid] 37.5 mcg PO HS 11/02/15 10/29/18 History SUMAtriptan SUCCINATE [Imitrex] 100 mg PO DAILY PRN 11/02/15 10/29/18 History Umeclidinium [place] [Incruse 1 puff INHALATION RT-DAILY 11/05/17 10/29/18 History Ellipta] Albuterol Sulfate [Proair Hfa] 1 - 2 puff INHALATION RT-Q6H PRN 11/21/17 10/29/18 History Modafinil [Provigil] 200 mg PO BID PRN 01/17/18 10/29/18 History Aclidinium [place] [Tudorza 1 puff INHALATION RT-BID 05/13/18 10/29/18 History Pressair] Multivitamins, Thera [Multivitamin 1 tab PO DAILY 05/13/18 10/29/18 History (formulary)] Ondansetron [Zofran] 4 mg PO Q8HR 06/19/18 10/29/18 History Pantoprazole Sodium [Protonix] 40 mg PO BID 06/19/18 10/29/18 History Latanoprost [Xalatan 0.005%] 1 drop BOTH EYES HS 07/17/18 10/29/18 History Vitamin B12 [place] 1 spray NASAL Q7D 07/17/18 10/29/18 History Vitamin C/Biotin [Hair, Skin and 1 tab PO DAILY 09/19/18 10/29/18 History Nails] Allergies Allergy/AdvReac Type Severity Reaction Status Date / Time latex AdvReac states Verified 10/29/18 11:20 "feels like chest tightens" scopolamine AdvReac contraindictated Verified 10/29/18 11:20 with glaucoma Exam Vital Signs Temp Pulse Resp BP Pulse Ox 10/29/18 11:28 97.4 F L 69 18 133/84 99 Intake and Output 10/28/18 10/29/18 10/29/18 22:59 06:59 14:59 Other: Weight 66.678 kg Height 5'3", weight 147 pounds, BMI 26.0. This is a well-developed well-nourished white female who is alert and oriented times 3 in no acute distress. HEENT: Within normal limits. NECK: Supple without mass or thyromegaly. CHEST AND LUNGS: Clear to auscultation. HEART: Regular rate and rhythm. BREASTS: Are without mass or discharge. The patient's right nipple is inverted. She states it has gone in and out for many years on that side. AXILLARY EXAM: Negative for adenopathy. BACK: Negative for CVA tenderness. ABDOMEN: Soft, nontender, without palpable masses. PELVIC EXAM: Normal external genitalia with mild atrophy. Cervix and vagina appear normal with mild atrophy. There is no unusual discharge. There is no cervical motion tenderness. There is no evidence of prolapse. The uterus is midposition, nongravid size. There are no palpable adnexal masses. There is mild right adnexal tenderness. There is minimal uterine and left adnexal tenderness. RECTAL EXAM: rectovaginal exam negative for mass or tenderness and is negative for occult blood. EXTREMITIES: Nontender. IMPRESSION: 1. 53-year-old postmenopausal female with recent pelvic menstrual like cramping with mild right adnexal tenderness on exam today. 2. Long history of abdominal pains and chronic nausea which seem to be associated with her to bariatric surgeries that were done. 3. At this time I doubt a gynecologic etiology for her chronic abdominal pains. Since the pains recently have felt like menstrual type cramping the differential diagnosis will include ovarian cyst, uterine fibroids, and hematom etrium. 4. History of yeast infections. Currently no signs of vaginal candidiasis. She states she recently completed a course of antibiotics and is concerned she may develop a yeast infection. PLAN: 1. Pap smear was deferred since she had a normal one on 10/10/2017. 2. Self breast awareness was discussed with the patient. 3. Screening mammogram is due and she states it is scheduled in November. The order slip was given to the patient for this. 4. I have recommended pelvic ultrasound and the order slip was given to the patient for this. 5. Diflucan 150 mg PO times 1 if she develops yeast infection symptoms. The electronic prescription will be sentenced to [facility] pharmacy with 2 refills. 6. I have recommended your analysis with culture and sensitivity. A cup was given to the patient to obtain a specimen. She left without giving a specimen in the cup was found in the garbage can. 7. She will follow up with her bariatric surgeon and heard G.I. specialist for her chronic abdominal and G.I. problems. 8. She will return in one year and PRN.
== END ==
LOC: WWCWWP 11:13
PROVIDERS: ATTEND Obstetrics & Gynecology
DX: Z53.9 Procedure and treatment not carried out, unspecified reason (principal)

== ENCOUNTER → 2018-11-27 | Outpatient (CLI) | payer OTHER ==
--- NOTE | 2018-11-27 12:02 | US ---
EXAMINATION TYPE: US pelvic complete DATE OF EXAM: 11/27/2018 COMPARISON: NONE CLINICAL HISTORY: R10.2 PELVIC PAIN. Pelvic pain, ablation 2004 TECHNIQUE: Transabdominal (TA) Date of LMP: 2004 EXAM MEASUREMENTS: Uterus: 5.6 x 2.0 x 3.6 cm Endometrial Stripe: 0.3 cm Right Ovary: 2.3 x 1.4 x 1.0 cm Left Ovary: 2.1 x 1.2 x 1.0 cm 1. Uterus: Anteverted 2. Endometrium: appears wnl 3. Right Ovary: appears wnl 4. Left Ovary: appears wnl 5. Bilateral Adnexa: wnl 6. Posterior cul-de-sac: wnl IMPRESSION: Endometrial thickness is within normal limits in this patient with prior endometrial abla tion. No ovarian cysts or masses are appreciated. Unremarkable transabdominal pelvic ultrasound.
--- NOTE | 2018-11-27 13:36 | P.PN ---
Progress Note - Text Progress Note Date: 11/27/18 OUTPATIENT FOLLOW-UP NOTE TEST(S)/RESULTS: negative pelvic ultrasound on 11/27/2018. METHOD OF NOTIFICATION: a message with this result was left on the patient's voicemail. PATIENT COMMENTS: DIAGNOSIS: negative pelvic ultrasound DISCUSSION: PLAN: on the messages she was instructed to call if she has any questions.
--- NOTE | 2018-11-29 09:59 | MM ---
Reason for exam: screening (asymptomatic). Last mammogram was performed 1 year and 2 months ago. History: Patient is postmenopausal. Family history of breast cancer in paternal grandmother and breast cancer in paternal grandfather. Benign excisional biopsy of the left breast, 2001. Reductions of both breasts, 1990. Physical Findings: A clinical breast exam by your physician is recommended on an annual basis and results should be correlated with mammographic findings. MG 3D Screening Mammo W/Cad Bilateral CC and MLO view(s) were taken. Prior study comparison: October 10, 2017, bilateral MG 3d screening mammo w/cad. August 09, 2016, bilateral MG 3d screening mammo w/cad. No significant changes when compared with prior studies. ASSESSMENT: Benign, BI-RAD 2 RECOMMENDATION: Routine screening mammogram of both breasts in 1 year.
== END | disposition home or self-care (01) ==
LOC: RADUSWWP 10:54
PROVIDERS: ATTEND Obstetrics & Gynecology
DX: Z12.31 Encounter for screening mammogram for malignant neoplasm of breast (principal); R10.2 Pelvic and perineal pain; R68.89 Other general symptoms and signs
CPT/HCPCS: 76856; 77063; 77067

== ENCOUNTER → 2019-02-18 | Outpatient (CLI) | payer OTHER ==
[2019-02-18 15:59] LABS: INR 0.9 (<1.2); Partial Thromboplastin Time 24.4 sec (22.0-30.0); Prothrombin Time 9.7 sec (9.0-12.0)
[2019-02-18 16:09] LABS: HCT 43.3 % (34.0-46.0); HGB 14.1 gm/dL (11.4-16.0); MCH 29.8 pg (25.0-35.0); MCHC 32.5 g/dL (31.0-37.0); MCV 91.7 fL (80.0-100.0); Mean Platelet Volume 7.5; Platelet Count 270 k/uL (150-450); RBC 4.72 m/uL (3.80-5.40); RDW 13.7 % (11.5-15.5); WBC 5.7 k/uL (3.8-10.6)
[2019-02-19 00:07] LABS: Albumin 4.8 g/dL (3.80-4.90); Albumin/Globulin Ratio 2.4 (1.60-3.17); Anion Gap 11.3 mmol/L (4.00-12.00); BUN/Creat Ratio 14.44 Ratio (12.00-20.00); Calcium 9.9 mg/dL (8.7-10.3); Carbon Dioxide 28.7 mmol/L (21.6-31.8); Iron Saturation 18.42 (12.00-45.00); Magnesium 1.9 mg/dL (1.5-2.4); Phosphorus 4.2 mg/dL (2.4-5.1); Total Bilirubin 0.3 mg/dL (0.3-1.2); Total Protein 6.8 g/dL (6.2-8.2)
[2019-02-19 00:16] LABS: Vitamin D 25 Hydroxy 17.2 ng/mL (30.0-100.0)
[2019-02-19 00:28] LABS: Folate, Serum 10.8 ng/mL
[2019-02-19 00:43] LABS: Hemoglobin A1C 5.8 % (4.0-6.0)
[2019-02-19 01:54] LABS: Parathyroid Hormone Intact 80.5 pg/mL (14.0-72.0)
[2019-02-19 12:27] LABS: Zinc, Serum 81 ug/dL (60-130)
[2019-02-19 12:47] LABS: Vitamin A 57 ug/dL (38-106)
== END | disposition home or self-care (01) ==
LOC: LABWHC1 15:08
PROVIDERS: ATTEND Surgery Plastic and Reconstructive Surgery
DX: E21.1 Secondary hyperparathyroidism, not elsewhere classified (principal); E89.1 Postprocedural hypoinsulinemia; E44.0 Moderate protein-calorie malnutrition; D50.9 Iron deficiency anemia, unspecified; K90.89 Other intestinal malabsorption; E55.9 Vitamin D deficiency, unspecified; K74.1 Hepatic sclerosis; N19 Unspecified kidney failure; K50.90 Crohn's disease, unspecified, without complications
CPT/HCPCS: 36415; 80053; 80061; 82306; 82525; 82607; 82728; 82746; 83036; 83540; 83550; 83735; 83970; 84100; 84134; 84255; 84425; 84443; 84590; 84630; 85027; 85610; 85730

== ENCOUNTER → 2019-03-19 | Outpatient (CLI) | payer OTHER ==
[2019-03-19 15:38] VITALS: BP 134/65; PULSE 69; TEMP 98.1; BMI 27.2
--- NOTE | 2019-03-19 16:49 | P.PN ---
Subjective Progress Note Date: 03/19/19 DATE OF SERVICE: 03/19/2019 CHIEF COMPLAINT: Status post gastric bypass HISTORY OF PRESENT ILLNESS: Josefina Bird is a 53-year-old female who is status post sleeve gastrectomy to gastric bypass 02/18/2018. She is over 1 year out. She comes in with new problems with her blood sugar and hypoglycemic events. Also, she comes in with severe recurrent ulcers and chronic nausea. Her previous weight was 201 pounds. Today she comes in weighing 149 pounds from 143 pounds, 5 months ago. She has gained 9 pounds in 5 months. She has maintained 52 pound weight loss. Percent excess weight loss 79 %. Body mass index reduced from 36.8 down to 27.3. PHYSICAL EXAM: VITAL SIGNS: 5 foot 2, 149 pounds. Body mass index 27.3 Vital Signs Temp 98.1 F 03/19/19 16:06 Pulse 69 03/19/19 16:06 Resp BP 134/65 03/19/19 16:06 Pulse Ox ABDOMEN: Soft and non-distended MUSCULOSKELETAL: No clubbing, cyanosis, or edema. GENERAL: Well-developed female in no acute distress. HEENT: No sclera icterus. Extraocular movements grossly intact. Moist buccal mucosa. Head is atraumatic, normocephalic. Hears conversational speech. No nasal drainage. NECK: Supple without lymphadenopathy. No JV distention. CHEST: Non-labored respirations and equal bilateral excursions. CARDIOVASCULAR: Regular rate and rhythm. NEUROLOGIC: No focal or lateralizing signs. Cranial nerves II through XII grossly intact. PSYCH: Appropriate affect. Alert and oriented to person, place and time. SKIN: Well-perfused. Good skin turgor. ASSESSMENT: 1. Previous history of morbid obesity due to excess calories 2. Body mass index reduced from 36.8 down to 27.3 3. Status post gastric bypass. 4. History of perforated gastrojejunal ulcer 5. Chronic gastric ulcers. 6. Reactive hypoglycemia, new 7. Dietary surveillance and counseling PLAN: 1. To address her hypoglycemia, dietary modification advised. Recommend combination of carbs, fats, and protein including eating every 3 to 4 hrs to avoid extremes of blood sugars. 2. Follow up in 1 month or after [facility] referral for recurrent gastric ulcers and evaluation for vagatomy with a history of gastric bypass Objective - Vital Signs Vital signs: Vital Signs Temp 98.1 F 03/19/19 16:06 Pulse 69 03/19/19 16:06 Resp BP 134/65 03/19/19 16:06 Pulse Ox Intake & Output 03/18/19 03/19/19 03/19/19 18:59 06:59 18:59 Weight 67.585 kg
== END | disposition home or self-care (01) ==
LOC: BARWHC3 14:36
PROVIDERS: ATTEND Surgery Plastic and Reconstructive Surgery
DX: Z48.815 Encounter for surgical aftercare following surgery on the digestive system (principal); K25.7 Chronic gastric ulcer without hemorrhage or perforation; E16.1 Other hypoglycemia; Z71.3 Dietary counseling and surveillance; Z68.27 Body mass index [BMI] 27.0-27.9, adult; Z86.39 Personal history of other endocrine, nutritional and metabolic disease; Z98.84 Bariatric surgery status
CPT/HCPCS: 99211

== ENCOUNTER → 2019-05-14 | Outpatient (CLI) | payer OTHER ==
[2019-05-14 15:54] VITALS: BP 127/90; PULSE 65; RESP 16; TEMP 98.3; BMI 27.1
--- NOTE | 2019-05-14 16:44 | P.PN ---
Subjective Progress Note Date: 05/14/19 HPI: She has severe nausea. She has hypoglycemia. Has chronic ulcers ABDOMEN: Unremarkable ASSESSMENT: 1. Morbid obesity PLAN: 1. Referral to [place] is pending 2. Dietitian for hypoglycemia 3. Potassium and magnesium supplement [place] referral online created today [place] Objective - Vital Signs Vital signs: Vital Signs Temp 98.3 F 05/14/19 15:49 Pulse 65 05/14/19 15:49 Resp 16 05/14/19 15:49 BP 127/90 05/14/19 15:49 Pulse Ox Intake & Output 05/13/19 05/14/19 05/14/19 18:59 06:59 18:59 Weight 67.132 kg
== END | disposition home or self-care (01) ==
LOC: BARWHC3 15:06
PROVIDERS: ATTEND Surgery Plastic and Reconstructive Surgery
DX: E66.01 Morbid (severe) obesity due to excess calories (principal); E16.2 Hypoglycemia, unspecified; L98.499 Non-pressure chronic ulcer of skin of other sites with unspecified severity; Z68.27 Body mass index [BMI] 27.0-27.9, adult
CPT/HCPCS: 99211

== ENCOUNTER → 2019-05-23 | Outpatient (CLI) | payer OTHER ==
[2019-05-23 18:44] LABS: Anion Gap 8.9 mmol/L (4.00-12.00); BUN/Creat Ratio 12.22 Ratio (12.00-20.00); Calcium 9.5 mg/dL (8.7-10.3); Carbon Dioxide 30.1 mmol/L (21.6-31.8); Magnesium 1.8 mg/dL (1.5-2.4); Non-African American GFR(CKD) 72.5 (60.0-200.0); Potassium 3.9 mmol/L (3.5-5.5)
== END ==
LOC: LABWHC1 12:53
PROVIDERS: ATTEND Surgery Plastic and Reconstructive Surgery
DX: E66.01 Morbid (severe) obesity due to excess calories (principal)
CPT/HCPCS: 36415; 80048; 83735

== ENCOUNTER 2019-09-15 15:32 | Emergency (ER) | payer OTHER ==
[2019-09-15 16:02] VITALS: RESP 18; TEMP 97.4
[2019-09-15] MEDS ORDERED: PANTOPRAZOLE 40 MG/10 ML VIAL IVP STA (16:28)
[2019-09-15] MEDS ORDERED: MORPHINE SULFATE 4 MG/ML SYRINGE IV STA (16:28)
[2019-09-15] MEDS ORDERED: ONDANSETRON 4 MG/2 ML VIAL IVP STA (16:28)
[2019-09-15] MEDS ORDERED: SODIUM CHLORIDE 0.9% 1,000 ML IV STA (16:28)
--- NOTE | 2019-09-15 16:53 | ED ---
Abdominal Pain HPI - General Chief Complaint: Abdominal Pain Stated Complaint: Abd.pain post surgery 08-27-19 Time Seen by Provider: 09/15/19 16:04 Source: patient Mode of arrival: ambulatory Limitations: no limitations - History of Present Illness Initial Comments: Patient is a 53-year-old female presenting to the emergency Department with complaints of epigastric pain along with nausea and vomiting for the past few weeks. Patient states she had an exploratory laparotomy performed at the [facility] on 08/27/2019 for chronic nausea and vomiting and epigastric pain.. Patient states they've found a few small abnormalities which they did fix. [place] states her symptoms improved and then returned about a week later. Patient has had multiple procedures including bariatric surgery, cholecystectomy, many scopes. She denies fever, diarrhea, chest pain, shortness of breath. Patient typically sees Dr. Rollins as her surgeon. Patient has no other complaints at this time. Upon arrival to ER, vital signs are stable. - Related Data Home Medications Medication Instructions Recorded Confirmed ALPRAZolam [Xanax] 0.5 mg PO DAILY PRN 03/31/15 05/14/19 Levothyroxine Sodium [Synthroid] 37.5 mcg PO HS 11/02/15 05/14/19 SUMAtriptan SUCCINATE [Imitrex] 100 mg PO DAILY PRN 11/02/15 05/14/19 Umeclidinium [place] [Incruse 1 puff INHALATION RT-DAILY 11/05/17 05/14/19 Ellipta] Albuterol Sulfate [Proair Hfa] 1 - 2 puff INHALATION RT-Q6H PRN 11/21/17 05/14/19 Modafinil [Provigil] 200 mg PO BID PRN 01/17/18 05/14/19 Ondansetron [Zofran] 4 mg PO Q8HR 06/19/18 05/14/19 Pantoprazole Sodium [Protonix] 40 mg PO BID 06/19/18 05/14/19 Latanoprost [Xalatan 0.005%] 1 drop BOTH EYES HS 07/17/18 05/14/19 Vitamin B12 [place] 1 spray NASAL Q7D 07/17/18 05/14/19 Vitamin C/Biotin [Hair, Skin and 1 tab PO DAILY 01/31/19 09/25/19 Nails] Fluticasone/Umeclidin/Vilanter 1 inhalation PO DAILY 05/14/19 05/14/19 [Trelegy Ellipta 100-62.5-25] Previous Rx's Medication Instructions Recorded Magnesium Oxide [Magox 400] 400 mg PO DAILY #60 tablet 05/14/19 Metoclopramide [Reglan] 10 mg PO ACHS #30 tab 05/14/19 Allergies Allergy/AdvReac Type Severity Reaction Status Date / Time latex AdvReac states Verified 05/14/19 15:54 "feels like chest tightens" scopolamine AdvReac contraindictated Verified 05/14/19 15:54 with glaucoma Review of Systems ROS Statement: Those systems with pertinent positive or pertinent negative responses have been documented in the HPI. ROS Other: All systems not noted in ROS Statement are negative. Past Medical History Past Medical History: Chest Pain / Angina, COPD, Diabetes Mellitus, Eye Disorder, Fibromyalgia, GERD/Reflux, Thyroid Disorder Additional Past Medical History / Comment(s): migraines, hiatal hernia, Insulin Resistance Diabetes., "borderline sleep apnea"., Glaucoma., hypothyroid, thyroid nodule., Gastric Sleeve 03/2016., SOB with activity., stomach ulcer-hx gastrojejunal perforation, Albert-en-Y gastric bypass 02/18/18, repair of pneumoperitoneum @ [facility] Apr 2018 History of Any Multi-Drug Resistant Organisms: None Reported Past Surgical History: Bariatric Surgery, Breast Surgery, Cholecystectomy, Uterine Ablation Additional Past Surgical History / Comment(s): left carpel tunnel, breast reduction, gastric sleeve (03/2016). 02-18-18 revision to gastric bypass, Albert-en-Y 02/2018 with surgery for pneumoperitoneum 04/2018. Adhesiolysis 09/2018. Colonoscopy with upper endoscopy 2017. Past Anesthesia/Blood Transfusion Reactions: Motion Sickness, Postoperative Nausea & Vomiting (PONV) Additional Past Anesthesia/Blood Transfusion Reaction / Comment(s): has never received blood Past Psychological History: Anxiety Smoking Status: Former smoker Past Alcohol Use History: Rare Past Drug Use History: None Reported - Past Family History Mother Additional Family Medical History / Comment(s): Emphysema. Maternal great aunt had breast cancer. Father Additional Family Medical History / Comment(s): ferry pilot w/ plane crash- age 22. Paternal grandmother had breast cancer. General Exam - General Exam Comments Initial Comments: GENERAL: Well-appearing, well-nourished and in no acute distress. HEAD: Atraumatic, normocephalic. EYES: Pupils equal round and reactive to light, extraocular movements intact, sclera anicteric, conjunctiva are normal. ENT: TMs normal, nares patent, oropharynx clear without exudates. Moist mucous membranes. NECK: Normal range of motion, supple without lymphadenopathy or JVD. LUNGS: Breath sounds clear to auscultation bilaterally and equal. No wheezes rales or rhonchi. HEART: Regular rate and rhythm without murmurs, rubs or gallops. ABDOMEN: Epigastric pain with palpation. Soft, normoactive bowel sounds. No guarding, no rebound. No masses appreciated. Multiple laparotomy scars. All incisions look healed. : Deferred EXTREMITIES: Normal range of motion, no pitting or edema. No clubbing or cyanosis. NEUROLOGICAL: Normal speech, normal gait. PSYCH: Normal mood, normal affect. SKIN: Warm, Dry, normal turgor, no rashes or lesions noted. Limitations: no limitations Course Vital Signs 09/15/19 15:58 Temperature 97.4 F L Pulse Rate 62 Respiratory 18 Rate Blood Pressure 133/89 O2 Sat by Pulse 99 Oximetry Medical Decision Making - Medical Decision Making Patient is a 53-year-old female presenting with epigastric pain, nausea, vomiting. She is patient of Dr. Rollins's. Vitals are stable here today. Lab work shows no acute abnormalities. Urine is normal. CT shows no acute abnormalities. Discussed these findings with the patient. Patient states she does have an appointment with Dr. Rollins in 2 days. She will follow-up with her. Patient will continue with her regular medications. She is stable for discharge at this time. Return parameters were discussed with the patient she verbalized understanding. Case discussed with Dr. Benson. - Lab Data Result diagrams: 09/15/19 16:50 09/15/19 16:50 Lab Results 09/15/19 09/15/19 09/15/19 Range/Units 16:50 16:50 16:50 WBC 7.5 (3.8-10.6) k/uL RBC 5.15 (3.80-5.40) m/uL Hgb 14.8 (11.4-16.0) gm/dL Hct 45.6 (34.0-46.0) % MCV 88.6 (80.0-100.0) fL MCH 28.6 (25.0-35.0) pg MCHC 32.3 (31.0-37.0) g/dL RDW 12.1 (11.5-15.5) % Plt Count 315 (150-450) k/uL Neutrophils % 52 % Lymphocytes % 37 % Monocytes % 5 % Eosinophils % 3 % Basophils % 1 % Neutrophils # 3.9 (1.3-7.7) k/uL Lymphocytes # 2.8 (1.0-4.8) k/uL Monocytes # 0.4 (0-1.0) k/uL Eosinophils # 0.2 (0-0.7) k/uL Basophils # 0.1 (0-0.2) k/uL PT 9.6 (9.0-12.0) sec INR 0.9 (<1.2) APTT 22.7 (22.0-30.0) sec Sodium 141 (137-145) mmol/L Potassium 3.6 (3.5-5.1) mmol/L Chloride 101 (98-107) mmol/L Carbon Dioxide 32 H (22-30) mmol/L Anion Gap 8 mmol/L BUN 12 (7-17) mg/dL Creatinine 0.74 (0.52-1.04) mg/dL Est GFR (CKD-EPI)AfAm >90 (>60 ml/min/1.73 sqM) Est GFR (CKD-EPI)NonAf >90 (>60 ml/min/1.73 sqM) Glucose 84 (74-99) mg/dL Calcium 9.8 (8.4-10.2) mg/dL Total Bilirubin 0.5 (0.2-1.3) mg/dL AST 22 (14-36) U/L ALT 13 (4-34) U/L Alkaline Phosphatase 62 (38-126) U/L Troponin I (0.000-0.034) ng/mL Total Protein 7.8 (6.3-8.2) g/dL Albumin 4.8 (3.5-5.0) g/dL Amylase 59 (30-110) U/L Lipase 87 (23-300) U/L Urine Color Urine Appearance (Clear) Urine pH (5.0-8.0) Ur Specific [place] (1.001-1.035) Urine Protein (Negative) Urine Glucose (UA) (Negative) Urine Ketones (Negative) Urine Blood (Negative) Urine Nitrite (Negative) Urine Bilirubin (Negative) Urine Urobilinogen (<2.0) mg/dL Ur Leukocyte Esterase (Negative) Urine RBC (0-5) /hpf Urine WBC (0-5) /hpf Ur Squamous Epith Cells (0-4) /hpf Urine Bacteria (None) /hpf Urine Mucus (None) /hpf 09/15/19 09/15/19 Range/Units 16:50 16:50 WBC (3.8-10.6) k/uL RBC (3.80-5.40) m/uL Hgb (11.4-16.0) gm/dL Hct (34.0-46.0) % MCV (80.0-100.0) fL MCH (25.0-35.0) pg MCHC (31.0-37.0) g/dL RDW (11.5-15.5) % Plt Count (150-450) k/uL Neutrophils % % Lymphocytes % % Monocytes % % Eosinophils % % Basophils % % Neutrophils # (1.3-7.7) k/uL Lymphocytes # (1.0-4.8) k/uL Monocytes # (0-1.0) k/uL Eosinophils # (0-0.7) k/uL Basophils # (0-0.2) k/uL PT (9.0-12.0) sec INR (<1.2) APTT (22.0-30.0) sec Sodium (137-145) mmol/L Potassium (3.5-5.1) mmol/L Chloride (98-107) mmol/L Carbon Dioxide (22-30) mmol/L Anion Gap mmol/L BUN (7-17) mg/dL Creatinine (0.52-1.04) mg/dL Est GFR (CKD-EPI)AfAm (>60 ml/min/1.73 sqM) Est GFR (CKD-EPI)NonAf (>60 ml/min/1.73 sqM) Glucose (74-99) mg/dL Calcium (8.4-10.2) mg/dL Total Bilirubin (0.2-1.3) mg/dL AST (14-36) U/L ALT (4-34) U/L Alkaline Phosphatase (38-126) U/L Troponin I <0.012 (0.000-0.034) ng/mL Total Protein (6.3-8.2) g/dL Albumin (3.5-5.0) g/dL Amylase (30-110) U/L Lipase (23-300) U/L Urine Color Yellow Urine Appearance Cloudy H (Clear) Urine pH 5.5 (5.0-8.0) Ur Specific [place] 1.008 (1.001-1.035) Urine Protein Negative (Negative) Urine Glucose (UA) Negative (Negative) Urine Ketones Negative (Negative) Urine Blood Negative (Negative) Urine Nitrite Negative (Negative) Urine Bilirubin Negative (Negative) Urine Urobilinogen <2.0 (<2.0) mg/dL Ur Leukocyte Esterase Large H (Negative) Urine RBC 3 (0-5) /hpf Urine WBC 14 H (0-5) /hpf Ur Squamous Epith Cells 10 H (0-4) /hpf Urine Bacteria Rare H (None) /hpf Urine Mucus Occasional H (None) /hpf Disposition Clinical Impression: Epigastric pain, Nausea & vomiting Disposition: HOME SELF-CARE Condition: Stable Instructions (If sedation given, give patient instructions): Abdominal Pain (ED) Additional Instructions: Please return to the Emergency Department if symptoms worsen or any other concer ns. Follow-up with Dr. Rollins. Continue with regular medications. Is patient prescribed a controlled substance at d/c from ED?: No Referrals: Favio Gibbons MD [Primary Care Provider] - 1-2 days
[2019-09-15 17:02] LABS: Basophils # (A) 0.1 k/uL (0-0.2); Basophils % (A) 1 %; Eosinophils # (A) 0.2 k/uL (0-0.7); Eosinophils % (A) 3 %; HCT 45.6 % (34.0-46.0); HGB 14.8 gm/dL (11.4-16.0); Lymphocytes # (A) 2.8 k/uL (1.0-4.8); Lymphocytes % (A) 37 %; MCH 28.6 pg (25.0-35.0); MCHC 32.3 g/dL (31.0-37.0); MCV 88.6 fL (80.0-100.0); Mean Platelet Volume 7.1; Monocytes # (A) 0.4 k/uL (0-1.0); Monocytes % (A) 5 %; Neutrophils # (A) 3.9 k/uL (1.3-7.7); Neutrophils % (A) 52 %; Platelet Count 315 k/uL (150-450); RBC 5.15 m/uL (3.80-5.40); RDW 12.1 % (11.5-15.5); WBC 7.5 k/uL (3.8-10.6)
[2019-09-15 17:10] LABS: Appearance,Urine Cloudy (Clear); Bacteria,Urine Rare /hpf; Bilirubin,Urine Negative (Negative); Blood,Urine Negative (Negative); Color,Urine Yellow; Glucose,Urine (UA) Negative (Negative); Ketones,Urine Negative (Negative); Leukocyte Esterase,Urine Large (Negative); Mucus,Urine Occasional /hpf; Nitrite,Urine Negative (Negative); PH, Urine 5.5 (5.0-8.0); Protein,Urine Negative (Negative); RBC,Urine 3 /hpf (0-5); Specific Gravity,Urine 1.008 (1.001-1.035); Squamous Epithelial Cell,Urine 10 /hpf (0-4); Urobilinogen,Urine <2.0 mg/dL (<2.0); WBC,Urine 14 /hpf (0-5)
[2019-09-15 17:11] LABS: ALT 13 U/L (4-34); AST 22 U/L (14-36); African American GFR (CKD) >90 (>60 ml/min/1.73 sqM); Albumin 4.8 g/dL (3.5-5.0); Alkaline Phosphatase 62 U/L (38-126); Amylase 59 U/L (30-110); Anion Gap 8 mmol/L; Blood Urea Nitrogen 12 mg/dL (7-17); Calcium 9.8 mg/dL (8.4-10.2); Carbon Dioxide 32 mmol/L (22-30); Chloride 101 mmol/L (98-107); Glucose 84 mg/dL (74-99); Non-African American GFR(CKD) >90 (>60 ml/min/1.73 sqM); Potassium 3.6 mmol/L (3.5-5.1); Sodium 141 mmol/L (137-145); Total Bilirubin 0.5 mg/dL (0.2-1.3); Total Protein 7.8 g/dL (6.3-8.2)
[2019-09-15 17:22] LABS: INR 0.9 (<1.2); Partial Thromboplastin Time 22.7 sec (22.0-30.0); Prothrombin Time 9.6 sec (9.0-12.0)
--- NOTE | 2019-09-15 17:52 | CT ---
EXAMINATION TYPE: CT abdomen pelvis w con DATE OF EXAM: 09/15/2019 COMPARISON: Prior CT 05/13/2018 HISTORY: Abdominal pain 1 week post laparoscopic surgery CT DLP: 718.2 mGycm Automated exposure control for dose reduction was used. TECHNIQUE: Helical acquisition of images from the lung bases through the pelvis have been completed. CONTRAST: Performed without Oral Contrast and with IV Contrast, patient injected with 100 mL of Isovue 300. FINDINGS: Postop changes are noted to the distal esophagus, stomach and small bowel. Small umbilical hernia contains fat. LUNG BASES: No significant abnormality is appreciated. AORTA: No significant abnormality is appreciated. LIVER/GB: Patient is post cholecystectomy. Liver shows no mass. PANCREAS: No significant abnormality is seen. SPLEEN: No significant abnormality is seen. ADRENALS: No significant abnormality is seen. KIDNEYS: No significant abnormality is seen. REPRODUCTIVE ORGANS: No significant abnormality is seen BOWEL: Some small bowel loops show some wall thickening. Appendix is not seen. FREE AIR: No Free Air visible. ASCITES: None visible. PELVIC ADENOPATHY: None visualized. RETROPERITONEAL ADENOPATHY: No Retroperitoneal Adenopathy visible. URINARY BLADDER: No significant abnormality is seen. OSSEOUS STRUCTURES: No significant abnormality is seen. IMPRESSION: POSTOP CHANGES. CORRELATE TO EXCLUDE ENTERITIS. NO ABNORMAL FLUID COLLECTIONS. ADDITIONAL FINDINGS AB OVE.
[2019-09-15 18:26] VITALS: BP 135/78; PULSE 61
== END 2019-09-15 18:15 | disposition home or self-care (01) ==
LOC: EC 15:32
DX: R10.13 Epigastric pain (principal); R11.2 Nausea with vomiting, unspecified; K21.9 Gastro-esophageal reflux disease without esophagitis; E03.9 Hypothyroidism, unspecified; H40.9 Unspecified glaucoma; F41.9 Anxiety disorder, unspecified; J44.9 Chronic obstructive pulmonary disease, unspecified; E11.9 Type 2 diabetes mellitus without complications; M79.7 Fibromyalgia; G47.30 Sleep apnea, unspecified; Z79.890 Hormone replacement therapy; Z79.51 Long term (current) use of inhaled steroids; Z79.899 Other long term (current) drug therapy; Z91.040 Latex allergy status; Z88.8 Allergy status to other drugs, medicaments and biological substances; Z98.84 Bariatric surgery status; Z90.49 Acquired absence of other specified parts of digestive tract; Z98.890 Other specified postprocedural states; Z87.891 Personal history of nicotine dependence; Z87.19 Personal history of other diseases of the digestive system
CPT/HCPCS: 36415; 80053; 82150; 83690; 84484; 85025; 85610; 85730; 81001; 87086; 87077; 87186; 74177; 96374; 96375 ×2; 96361; 99284; J2270; J2405; C9113; Q9967

== ENCOUNTER → 2019-09-17 | Outpatient (CLI) | payer OTHER ==
[2019-09-17 15:59] VITALS: BP 149/88; PULSE 68; TEMP 98.2; BMI 26.5
--- NOTE | 2019-09-17 16:44 | P.PN ---
Subjective Progress Note Date: 09/17/19 DATE OF SERVICE: 09/17/2019 CHIEF COMPLAINT: Status post gastric bypass HISTORY OF PRESENT ILLNESS: Josefina Bird is a 53-year-old female who is status post sleeve gastrectomy to gastric bypass 02/18/2018. She is over 1 year out. She returns from [facility] in [place] after referral for her chronic abdominal pain and recurrent ulcers. She had repair of internal hernias. She reports no ulcers were found upon evaluation. She had an esophageal dilation pre records of 10-12mm dilation. No other thing was done. She reports still persistent nausea without improvement of her initial referring symptoms. She was in the emergency room for abdominal pain less than 5 days ago after her [facility] surgery. She presents today for evaluation. Her previous weight was 201 pounds, BMI 36.8. [place] body weight for 5 foot 2 inches is 135 pounds. Today she comes in weighing 145 pounds form 148 pounds, 4 months ago. She has lost 3 pounds in 4 months. She has maintained 56 pound weight loss, lifetime. Percent excess weight loss 85 %. Body mass index reduced from 36.8 down to 26.5. PAST MEDICAL HISTORY: 1. Obstructive sleep apnea. 2. Gastroesophageal reflux disease. 3. History of hiatal hernia. 4. Carpal tunnel syndrome. 5. Diabetes type 2. 6. Hypothyroidism. 7. Chronic obstructive pulmonary disease. 8. Anxiety. 9. Colon polyps. 10. Sleep apnea. 11. Morbid obesity, BMI 36.8, initial PAST SURGICAL HISTORY: 1. Uterine ablation. 2. Left carpal tunnel release. 3. Bilateral breast reduction. 4. Upper endoscopy. 5. Lower endoscopy. 6. Status post sleeve gastrectomy. 7. Cholecystectomy. 8. Repair of perforated gastrojejunal ulcer at outside institution, Apr 2018 9. Closure of internal hernias, diagnostic laparoscopy at [facility], Aug 2019 MEDICATIONS: 1. Imitrex. 2. Synthroid. 3. Multivitamin. 4. Incruse Ellipta. 5. ProAir. 6. Calcium 7. Tudorza with Pressair. 8. Zantac. 9. Xanax. 10. Omeprazole. 11. Metformin 12. Provigil 13. Xalantan eye drops 14. Breo Ellipta 15. Fluorometholone ALLERGIES: Denies. SOCIAL HISTORY: Former tobacco user. FAMILY HISTORY: Pertinent for morbid obesity in her mother. Also no reports of Crohn's disease or ulcerative colitis. Denies any family history of gastrointestinal cancers. She has a mother who has morbid obesity. REVIEW OF SYSTEMS: CONSTITUTIONAL: Her ideal body weight is 135 pounds for her 5 foot 2 frame. Heighest weight of 201 pounds. Prior BMI 36.8. GASTROINTESTINAL: No reports of dumping syndrome. History of colon polyps. History of ulcers ENDOCRINE: Improved insulin resistance. She is no longer on medications for diabetic control. CARDIOVASCULAR: History of hypertension. No palpitations. RESPIRATORY: History of chronic obstructive pulmonary disease. NEURO: History of migraine headaches. No strokes. HEENT: Denies any troubles with vision or hearing. GENITOURINARY: History of endometrial ablation. 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 PSYCH: History of anxiety and depression. HEMATOLOGIC: Denies any easy bruising and bleeding or prior venous thromboembolic event. SKIN: No rash. No skin cancer. PHYSICAL EXAM: VITAL SIGNS: 5 foot 2, 145 pounds. Body mass index 26.5 Vital Signs Temp 98.2 F 09/17/19 15:57 Pulse 68 09/17/19 15:57 Resp BP 149/88 09/17/19 15:57 Pulse Ox ABDOMEN: Soft and non-distended MUSCULOSKELETAL: No clubbing, cyanosis, or edema. GENERAL: Well-developed female in no acute distress. HEENT: No sclera icterus. Extraocular movements grossly intact. Moist buccal mucosa. Head is atraumatic, normocephalic. Hears conversational speech. No na clarisa drainage. NECK: Supple without lymphadenopathy. No JV distention. CHEST: Non-labored respirations and equal bilateral excursions. CARDIOVASCULAR: Regular rate and rhythm. NEUROLOGIC: No focal or lateralizing signs. Cranial nerves II through XII grossly intact. PSYCH: Appropriate affect. Alert and oriented to person, place and time. SKIN: Well-perfused. Good skin turgor. STUDIES: CT of the abdomen and pelvis reviewed independently with small hiatal hernia. No mesenteric swirl. No colitis MEDICAL RECORDS: Outside medical records from [facility] reviewed with stricture of anastomosis dilated from 10 to 12 mm. Operative report with closure of Aguiar and jejujejunostomy mesenteric defects. LABS: Hgb 14.8. WBC normal. UA positive for urinary tract infection MICROBIOLOGY: Moderate drug resistance ASSESSMENT: 1. Previous history of morbid obesity due to excess calories 2. Body mass index reduced from 36.8 down to 26.5 3. Status post gastric bypass. 4. History of perforated gastrojejunal ulcer 5. Chronic gastric ulcers. 6. Reactive hypoglycemia, new 7. Dietary surveillance and counseling 8. Chronic nausea 9. UTI PLAN: 1. Recommend bariatric labs including checking magnesium for chronic nausea 2. Recommend upper endoscopy for history of ulcers Objective - Vital Signs Vital signs: Vital Signs Temp 98.2 F 09/17/19 15:57 Pulse 68 09/17/19 15:57 Resp BP 149/88 09/17/19 15:57 Pulse Ox Intake & Output 09/16/19 09/17/19 09/17/19 18:59 06:59 18:59 Weight 65.771 kg
== END | disposition home or self-care (01) ==
LOC: BARWHC3 15:07
PROVIDERS: ATTEND Surgery Plastic and Reconstructive Surgery
DX: Z48.815 Encounter for surgical aftercare following surgery on the digestive system (principal); K25.7 Chronic gastric ulcer without hemorrhage or perforation; N39.0 Urinary tract infection, site not specified; R11.0 Nausea; Z86.39 Personal history of other endocrine, nutritional and metabolic disease; Z68.26 Body mass index [BMI] 26.0-26.9, adult; Z87.11 Personal history of peptic ulcer disease; E16.1 Other hypoglycemia; Z71.3 Dietary counseling and surveillance; Z87.891 Personal history of nicotine dependence; Z90.49 Acquired absence of other specified parts of digestive tract; Z98.890 Other specified postprocedural states; Z79.84 Long term (current) use of oral hypoglycemic drugs; Z79.899 Other long term (current) drug therapy
CPT/HCPCS: 99211

== ENCOUNTER 2019-09-22 10:14 | Day surgery (SDC) | payer OTHER ==
--- NOTE | 2019-09-22 03:43 | P.GSHP ---
History of Present Illness H&P Date: 09/22/19 CHIEF COMPLAINT: GERD HISTORY OF PRESENT ILLNESS: The patient is a 53-year-old female who presents reports gastroesophageal reflux disease. Upper endoscopy was offered for further evaluation and management. PAST MEDICAL HISTORY: Please see list. PAST SURGICAL HISTORY: Please see list. MEDICATIONS: Please see list. ALLERGIES: Please see list. SOCIAL HISTORY: No illicit drug use FAMILY HISTORY: No reports of Crohn disease or ulcerative colitis. REVIEW OF ORGAN SYSTEMS: CONSTITUTIONAL: No reports of fevers or chills. GI: Denies any blood in stools or constipation. PHYSICAL EXAM: VITAL SIGNS: Stable GENERAL: Well-developed and pleasant in no acute distress. HEENT: No scleral icterus. Extraocular movements grossly intact. Moist buccal mucosa. NECK: Supple without lymphadenopathy. CHEST: Unlabored respirations. Equal bilateral excursions. CARDIOVASCULAR: Regular rate and rhythm. Distal 2+ pulses. ABDOMEN: Soft, nondistended. MUSCULOSKELETAL: No clubbing, cyanosis, or edema. ASSESSMENT: 1. Gastroesophageal reflux disease PLAN: 1. Recommend proceeding with an upper endoscopy Past Medical History Past Medical History: Chest Pain / Angina, COPD, Diabetes Mellitus, Eye Disorder, Fibromyalgia, GERD/Reflux, Sleep Apnea/CPAP/BIPAP, Thyroid Disorder Additional Past Medical History / Comment(s): CURRENT: N & V, CANT KEEP FOOD DOWN. Migraines, hiatal hernia, Insulin Resistance Diabetes., "borderline sleep apnea"., Glaucoma., hypothyroid, thyroid nodule. SOB with activity., stomach ulcer-hx gastrojejunal perforation, neum @ [facility] Apr 2018 History of Any Multi-Drug Resistant Organisms: None Reported Past Surgical History: Bariatric Surgery, Breast Surgery, Cholecystectomy, Uterine Ablation Additional Past Surgical History / Comment(s): EXPLORATORY OF AUGUST 27, HERNIA BOWEL HORVATH SPACE DEFECT @[facility] [place] 08-27-19. 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 Surgery for pneumoperitoneum 04/2018 @ [facility]. Adhesiolysis 09/2018. Colonoscopy with upper endoscopy 2017. Gastric sleeve (03/2016). Past Anesthesia/Blood Transfusion Reactions: Motion Sickness, Postoperative Nausea & Vomiting (PONV) Additional Past Anesthesia/Blood Transfusion Reaction / Comment(s): Has never received blood Past Psychological History: Anxiety Additional Psychological History / Comment(s): Pt is independant.drives, lives with her son. 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 Smoking Status: Former smoker Past Alcohol Use History: Rare Additional Past Alcohol Use History / Comment(s): started smoking at age 16(1981), smoked 1ppd. quit 2011 Past Drug Use History: None Reported - Past Family History Mother Additional Family Medical History / Comment(s): Emphysema. Maternal great aunt had breast cancer. Father Additional Family Medical History / Comment(s): light armored reconnaissance officer w/ plane crash- age 22. Paternal grandmother had breast cancer. Medications and Allergies Home Medications Medication Instructions Recorded Confirmed Type ALPRAZolam [Xanax] 0.5 mg PO DAILY PRN 03/31/15 09/19/19 History Levothyroxine Sodium [Synthroid] 37.5 mcg PO HS 11/02/15 09/19/19 History SUMAtriptan SUCCINATE [Imitrex] 100 mg PO DAILY PRN 11/02/15 09/19/19 History Albuterol Sulfate [Proair Hfa] 1 - 2 puff INHALATION RT-Q6H PRN 11/21/17 09/19/19 History Modafinil [Provigil] 200 mg PO BID PRN 01/17/18 09/19/19 History Ondansetron [Zofran] 4 mg PO Q8HR 06/19/18 09/19/19 History Pantoprazole Sodium [Protonix] 40 mg PO BID 06/19/18 09/19/19 History Latanoprost [Xalatan 0.005%] 1 drop BOTH EYES HS 07/17/18 09/19/19 History Vitamin B12 [place] 1 spray NASAL WE 07/17/18 09/19/19 History Vitamin C/Biotin [Hair, Skin and 1 tab PO DAILY 09/19/18 09/19/19 History Nails] Fluticasone/Umeclidin/Vilanter 1 inhalation PO DAILY 05/14/19 09/19/19 History [Trelegy Ellipta 100-62.5-25] Pregabalin [Lyrica] 50 mg PO TID 09/19/19 09/19/19 History Allergies Allergy/AdvReac Type Severity Reaction Status Date / Time latex AdvReac states Verified 09/19/19 10:34 "feels like chest tightens" scopolamine AdvReac contraindictated Verified 09/19/19 10:34 with glaucoma
[2019-09-22 10:36] VITALS: RESP 16; TEMP 98.1
[2019-09-22] MEDS ORDERED: LACTATED RINGERS 1,000 ML IV ONE (10:41)
[2019-09-22] MEDS ORDERED: LIDOCAINE 1% INJ 10MG/ML (20 ML MDV) ONE (10:42)
[2019-09-22] MEDS ORDERED: PROPOFOL 10 MG/ML 20 ML VIAL IV ONE (10:42)
--- NOTE | 2019-09-22 10:58 | P.PCN ---
Date of Procedure: 09/22/19 Description of Procedure: PREOPERATIVE DIAGNOSIS: Gastroesophageal reflux disease Gastrojejunal stricture with chronic ulcer without perforation Epigastric abdominal pain Past history of gastrojejunal perforation POSTOPERATIVE DIAGNOSIS: Gastroesophageal reflux disease Gastrojejunal stricture with chronic ulcer without perforation Epigastric abdominal pain Past history of gastrojejunal perforation OPERATION: Esophagogastrojejunoscopy with balloon dilatation from 10 to 15 mm. SURGEON: Nu Stewart MD ANESTHESIA: MAC. INDICATIONS: The patient is a 53-year-old female who presents with a history of gastrojejunal ulcers and epigastric abdominal pain. Benefits and risks of the procedure were described. Informed consent was obtained. DESCRIPTION: The patient was brought into the endoscopy suite and laid in the left lateral decubitus position. After a timeout was confirmed, the procedure was initiated. An Olympus gastroscope was passed along the posterior oropharynx down to the distal esophagus where the squamocolumnar junction was unremarkable. The gastric pouch was entered. A gastrojejunal stricture of 10 mm was found as the adult gastroscope was 9.5 mm in size. A Yelago balloon dilator was placed through the scope. Final insufflation up to 15 mm was performed with a total of 2 minutes. The scope was advanced up to 50 cm from the incisors into the Albert limb. The mucosa of the gastrojejunal anastomosis was intact. However chronic gastrojejunal marginal ulcer was encountered. No full-thickness injury was encountered. The GI tract was desufflated. The patient tolerated the procedure well. FINDINGS: Squamocolumnar junction at 32 cm Stricture of approximately 10 mm encountered. Chronic gastrojejunal ulceration encountered of anastomosis at 40 cm Successful balloon dilatation to 15 mm. Diaphragmatic hiatus at 35 cm. RECOMMENDATIONS: Continue Carafate and Protonix Plan - Discharge Summary Discharge Rx Participant: No New Discharge Prescriptions: No Action ALPRAZolam [Xanax] 0.5 mg PO DAILY PRN PRN Reason: Anxiety SUMAtriptan SUCCINATE [Imitrex] 100 mg PO DAILY PRN PRN Reason: MIGRAINES Levothyroxine Sodium [Synthroid] 37.5 mcg PO HS Albuterol Sulfate [Proair Hfa] 1 - 2 puff INHALATION RT-Q6H PRN PRN Reason: Shortness Of Breath Modafinil [Provigil] 200 mg PO BID PRN PRN Reason: SLEEPINESS Pantoprazole Sodium [Protonix] 40 mg PO BID Ondansetron [Zofran] 4 mg PO Q8HR Latanoprost [Xalatan 0.005%] 1 drop BOTH EYES HS Vitamin B12 [place] 1 spray NASAL WE Vitamin C/Biotin [Hair, Skin and Nails] 1 tab PO DAILY Fluticasone/Umeclidin/Vilanter [Trelegy Ellipta 100-62.5-25] 1 inhalation PO DAILY Pregabalin [Lyrica] 50 mg PO TID Discharge Medication List ALPRAZolam [Xanax] 0.5 mg PO DAILY PRN 03/31/15 [History] Levothyroxine Sodium [Synthroid] 37.5 mcg PO HS 11/02/15 [History] SUMAtriptan SUCCINATE [Imitrex] 100 mg PO DAILY PRN 11/02/15 [History] Albuterol Sulfate [Proair Hfa] 1 - 2 puff INHALATION RT-Q6H PRN 11/21/17 [History] Modafinil [Provigil] 200 mg PO BID PRN 01/17/18 [History] Ondansetron [Zofran] 4 mg PO Q8HR 06/19/18 [History] Pantoprazole Sodium [Protonix] 40 mg PO BID 06/19/18 [History] Latanoprost [Xalatan 0.005%] 1 drop BOTH EYES HS 07/17/18 [History] Vitamin B12 [place] 1 spray NASAL WE 07/17/18 [History] Vitamin C/Biotin [Hair, Skin and Nails] 1 tab PO DAILY 09/19/18 [History] Fluticasone/Umeclidin/Vilanter [Trelegy Ellipta 100-62.5-25] 1 inhalation PO DAILY 05/14/19 [History] Pregabalin [Lyrica] 50 mg PO TID 09/19/19 [History]
[2019-09-22 11:22] VITALS: BP 123/79; PULSE 69
== END 2019-09-22 11:25 | disposition home or self-care (01) ==
LOC: ORWHC2ENDO 10:14
PROVIDERS: ATTEND Surgery Plastic and Reconstructive Surgery
DX: K21.9 Gastro-esophageal reflux disease without esophagitis (principal); K28.7 Chronic gastrojejunal ulcer without hemorrhage or perforation; K91.89 Other postprocedural complications and disorders of digestive system; I20.0 Unstable angina; J44.9 Chronic obstructive pulmonary disease, unspecified; E11.9 Type 2 diabetes mellitus without complications; M79.7 Fibromyalgia; G43.909 Migraine, unspecified, not intractable, without status migrainosus; H40.9 Unspecified glaucoma; E03.9 Hypothyroidism, unspecified; E04.1 Nontoxic single thyroid nodule; F41.9 Anxiety disorder, unspecified; G47.33 Obstructive sleep apnea (adult) (pediatric); Z91.040 Latex allergy status; Z88.8 Allergy status to other drugs, medicaments and biological substances; Z87.19 Personal history of other diseases of the digestive system; Z98.84 Bariatric surgery status; Z98.890 Other specified postprocedural states; Z90.49 Acquired absence of other specified parts of digestive tract; Z87.898 Personal history of other specified conditions; Z91.89 Other specified personal risk factors, not elsewhere classified; Z87.891 Personal history of nicotine dependence; Z82.5 Family history of asthma and other chronic lower respiratory diseases; Z80.3 Family history of malignant neoplasm of breast; Z79.899 Other long term (current) drug therapy; Z79.890 Hormone replacement therapy; Z79.51 Long term (current) use of inhaled steroids; Z97.2 Presence of dental prosthetic device (complete) (partial)
CPT/HCPCS: 43245; J2001; J2704; C1726

== ENCOUNTER → 2019-10-15 | Outpatient (CLI) | payer OTHER ==
--- NOTE | 2019-10-15 16:58 | P.PN ---
Progress Note - Text Progress Note Date: 10/15/19 Patient not seen due to cancellation from emergency surgery
== END | disposition home or self-care (01) ==
LOC: BARWHC3 14:15
PROVIDERS: ATTEND Surgery Plastic and Reconstructive Surgery
DX: Z53.8 Procedure and treatment not carried out for other reasons (principal)

== ENCOUNTER → 2019-10-22 | Outpatient (CLI) | payer OTHER ==
[2019-10-22 14:55] VITALS: BP 136/78; PULSE 69; RESP 16; TEMP 98; BMI 26.9
--- NOTE | 2019-10-22 15:00 | P.PN ---
Subjective Progress Note Date: 10/22/19 DATE OF SERVICE: 10/22/2019 CHIEF COMPLAINT: Status post gastric bypass HISTORY OF PRESENT ILLNESS: Josefina Bird is a 53-year-old female who is status post sleeve gastrectomy to gastric bypass 02/18/2018. She is over 1 year out. She comes in with chronic gastric ulcers. She has records from [facility]. She has history of chronic nausea. She confirms past history of taking magnesium for both headaches and nausea that improved her symptoms. Her previous weight was 201 pounds, BMI 36.8. [place] body weight for 5 foot 2 inches is 135 pounds. Today she comes in weighing 147 pounds from 145 pounds, 2 months ago. She has gained 2 pounds in 2 months. She has lost 54 pounds lifetime. Lifetime percent excess weight loss 82 %. Body mass index reduced from 36.8 down to 26.9. PAST MEDICAL HISTORY: 1. Obstructive sleep apnea. 2. Gastroesophageal reflux disease. 3. History of hiatal hernia. 4. Carpal tunnel syndrome. 5. Diabetes type 2. 6. Hypothyroidism. 7. Chronic obstructive pulmonary disease. 8. Anxiety. 9. Colon polyps. 10. Sleep apnea. 11. Morbid obesity, BMI 36.8, initial PAST SURGICAL HISTORY: 1. Uterine ablation. 2. Left carpal tunnel release. 3. Bilateral breast reduction. 4. Upper endoscopy. 5. Lower endoscopy. 6. Status post sleeve gastrectomy. 7. Cholecystectomy. 8. Repair of perforated gastrojejunal ulcer at outside institution, Apr 2018 9. Closure of internal hernias, diagnostic laparoscopy at [place], Aug 2019 MEDICATIONS: Home Medications Medication Instructions Recorded Confirmed ALPRAZolam [Xanax] 0.5 mg PO DAILY PRN 03/31/15 10/22/19 Levothyroxine Sodium [Synthroid] 37.5 mcg PO HS 11/02/15 10/22/19 SUMAtriptan SUCCINATE [Imitrex] 100 mg PO DAILY PRN 11/02/15 10/22/19 Albuterol Sulfate [Proair Hfa] 1 - 2 puff INHALATION RT-Q6H PRN 11/21/17 10/22/19 Modafinil [Provigil] 200 mg PO BID PRN 01/17/18 10/22/19 Ondansetron [Zofran] 4 mg PO Q8HR 06/19/18 10/22/19 Pantoprazole Sodium [Protonix] 40 mg PO BID 06/19/18 10/22/19 Latanoprost [Xalatan 0.005%] 1 drop BOTH EYES HS 07/17/18 10/22/19 Vitamin C/Biotin [Hair, Skin and 1 tab PO DAILY 09/19/18 10/22/19 Nails] Fluticasone/Umeclidin/Vilanter 1 inhalation PO DAILY 05/14/19 10/22/19 [Trelegy Ellipta 100-62.5-25] Pregabalin [Lyrica] 50 mg PO TID 09/19/19 10/22/19 Previous Rx's Medication Instructions Recorded Sucralfate [Carafate] 1 gm PO BID #30 tab 09/22/19 ALLERGIES: Allergies Allergy/AdvReac Type Severity Reaction Status Date / Time latex AdvReac states Verified 10/22/19 14:56 "feels like chest tightens" scopolamine AdvReac contraindictated Verified 10/22/19 14:56 with glaucoma SOCIAL HISTORY: Former tobacco user. FAMILY HISTORY: Pertinent for morbid obesity in her mother. Also no reports of Crohn's disease or ulcerative colitis. Denies any family history of gastrointestinal cancers. She has a mother who has morbid obesity. REVIEW OF SYSTEMS: CONSTITUTIONAL: Her ideal body weight is 135 pounds for her 5 foot 2 frame. Heighest weight of 201 pounds. Prior BMI 36.8. GASTROINTESTINAL: No reports of dumping syndrome. History of colon polyps. History of ulcers ENDOCRINE: Improved insulin resistance. She is no longer on medications for diabetic control. CARDIOVASCULAR: History of hypertension. No palpitations. RESPIRATORY: History of chronic obstructive pulmonary disease. NEURO: History of migraine headaches. No strokes. HEENT: Denies any troubles with vision or hearing. GENITOURINARY: History of endometrial ablation. 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 PSYCH: History of anxiety and depression. HEMATOLOGIC: Denies any easy bruising and bleeding or prior venous thromboembolic event. SKIN: No rash. No skin cancer. PHYSICAL EXAM: VITAL SIGNS: 5 foot 2, 147 pounds. Body mass index 26.9 Vital Signs Temp 98.0 F 10/22/19 14:52 Pulse 69 10/22/19 14:52 Resp 16 10/22/19 14:52 BP 136/78 10/22/19 14:52 Pulse Ox 98 10/22/19 14:52 ABDOMEN: Soft and non-distended MUSCULOSKELETAL: No clubbing, cyanosis, or edema. GENERAL: Well-developed female in no acute distress. HEENT: No sclera icterus. Extraocular movements grossly intact. Moist buccal mucosa. Head is atraumatic, normocephalic. Hears conversational speech. No nasal drainage. NECK: Supple without lymphadenopathy. No JV distention. CHEST: Non-labored respirations and equal bilateral excursions. CARDIOVASCULAR: Regular rate and rhythm. NEUROLOGIC: No focal or lateralizing signs. Cranial nerves II through XII grossly intact. PSYCH: Appropriate affect. Alert and oriented to person, place and time. SKIN: Well-perfused. Good skin turgor. MEDICAL REPORTS: Demonstrates chronic ulcers LABS: Vitamin D is low, PTH is elevated EGD FINDINGS: Squamocolumnar junction at 32 cm Stricture of approximately 10 mm encountered. Chronic gastrojejunal ulceration encountered of anastomosis at 40 cm Successful balloon dilatation to 15 mm. Diaphragmatic hiatus at 35 cm. ASSESSMENT: 1. Previous history of morbid obesity due to excess calories 2. Body mass index reduced from 36.8 down to 26.9 3. Status post gastric bypass. 4. History of perforated gastrojejunal ulcer 5. Chronic gastric ulcers. 6. Reactive hypoglycemia, new 7. Dietary surveillance and counseling 8. Chronic nausea 9. UTI 10. Chronic gastric ulcers PLAN: 1. Continue with antacids. 2. Recommend vitamin 3. Recommend bariatric labs 4. Recommend magnesium 400 mg daily. 5. Medical reconciliation were reviewed with her with multiple side effects of chronic nausea from her inhalers and her Provigil. 6. Surgical intervention for chronic nausea including gastric ulcers were also reviewed as a last resort. Laboratory Last Values WBC 4.7 k/uL (3.8-10.6) 10/22/19 15:45 RBC 4.71 m/uL (3.80-5.40) 10/22/19 15:45 Hgb 13.6 gm/dL (11.4-16.0) 10/22/19 15:45 Hct 42.1 % (34.0-46.0) 10/22/19 15:45 MCV 89.4 fL (80.0-100.0) 10/22/19 15:45 MCH 29.0 pg (25.0-35.0) 10/22/19 15:45 MCHC 32.4 g/dL (31.0-37.0) 10/22/19 15:45 RDW 12.4 % (11.5-15.5) 10/22/19 15:45 Plt Count 259 k/uL (150-450) 10/22/19 15:45 PT 9.7 sec (9.0-12.0) 10/22/19 15:45 INR 0.9 (<1.2) 10/22/19 15:45 APTT 23.4 sec (22.0-30.0) 10/22/19 15:45 Sodium 142 mmol/L (135-145) 10/22/19 15:45 Potassium 4.2 mmol/L (3.5-5.5) 10/22/19 15:45 Chloride 104 mmol/L (96-109) 10/22/19 15:45 Carbon Dioxide 25.7 mmol/L (21.6-31.8) 10/22/19 15:45 Anion Gap 12.30 mmol/L (4.00-12.00) H 10/22/19 15:45 BUN 12.0 mg/dL (9.0-27.0) 10/22/19 15:45 Creatinine 0.9 mg/dL (0.6-1.5) 10/22/19 15:45 Est GFR (CKD-EPI)AfAm 83.4 (60.0-200.0) 10/22/19 15:45 Est GFR (CKD-EPI)NonAf 72.0 (60.0-200.0) 10/22/19 15:45 BUN/Creatinine Ratio 13.33 Ratio (12.00-20.00) 10/22/19 15:45 Glucose 96 mg/dL (70-110) 10/22/19 15:[address] Glu mg/dL 123 10/22/19 15:45 Hemoglobin A1c 5.9 % (4.0-6.0) 10/22/19 15:45 Calcium 9.4 mg/dL (8.7-10.3) 10/22/19 15:45 Phosphorus 4.9 mg/dL (2.4-5.1) 10/22/19 15:45 Magnesium 1.8 mg/dL (1.5-2.4) 10/22/19 15:45 Iron 75 ug/dL (50-170) 10/22/19 15:45 TIBC 317 ug/dL (228-460) 10/22/19 15:45 % Saturation 23.66 (12.00-45.00) 10/22/19 15:45 Ferritin 108.0 ng/mL (10.0-291.0) 10/22/19 15:45 Total Bilirubin 0.5 mg/dL (0.3-1.2) 10/22/19 15:45 AST 16 U/L (13-35) 10/22/19 15:45 ALT 17 U/L (8-44) 10/22/19 15:45 Alkaline Phosphatase 67 U/L (41-126) 10/22/19 15:45 Total Protein 6.4 g/dL (6.2-8.2) 10/22/19 15:45 Albumin 4.50 g/dL (3.80-4.90) 10/22/19 15:45 Globulin 1.9 g/dL (1.6-3.3) 10/22/19 15:45 Albumin/Globulin Ratio 2.37 g/dL (1.60-3.17) 10/22/19 15:45 Prealbumin 24.0 mg/dL (18.0-42.0) 10/22/19 15:45 Triglycerides 98.0 mg/dL (0.0-149.0) 10/22/19 15:45 Cholesterol 188 mg/dL (0-200) 10/22/19 15:45 LDL Cholesterol, Calc 100.4 mg/dL (0.0-131.0) 10/22/19 15:45 VLDL Cholesterol, Calc 19.60 mg/dL (5.00-40.00) 10/22/19 15:45 HDL Cholesterol 68.0 mg/dL (40.0-60.0) H 10/22/19 15:45 Cholesterol/HDL Ratio 2.76 10/22/19 15:45 Vitamin A 43 ug/dL (38-106) 10/22/19 15:45 Vitamin B1 45 ug/L (38-122) 10/22/19 15:45 Vitamin B12 307.0 pg/mL (200.0-944.0) 10/22/19 15:45 Vitamin D 25-Hydroxy 25.0 ng/mL (30.0-100.0) L 10/22/19 15:45 Folate 3.9 ng/mL 10/22/19 15:45 TSH 2.120 uIU/mL (0.350-5.500) 10/22/19 15:45 PTH Intact 86.7 pg/mL (14.0-72.0) H 10/22/19 15:45 Copper 1015 ug/L (810-1990) 10/22/19 15:45 Selenium 113 mcg/L (63-160) 10/22/19 15:45 Zinc 79 ug/dL (60-130) 10/22/19 15:45 Objective - Vital Signs Vital signs: Vital Signs Temp 98.0 F 10/22/19 14:52 Pulse 69 10/22/19 14:52 Resp 16 10/22/19 14:52 BP 136/78 10/22/19 14:52 Pulse Ox 98 10/22/19 14:52 Intake & Output 10/21/19 10/22/19 10/22/19 18:59 06:59 18:59 Weight 66.678 kg - Labs CBC & Chem 7: 10/22/19 15:45 10/22/19 15:45
[2019-10-22 16:26] LABS: INR 0.9 (<1.2); Partial Thromboplastin Time 23.4 sec (22.0-30.0); Prothrombin Time 9.7 sec (9.0-12.0)
[2019-10-22 16:40] LABS: HCT 42.1 % (34.0-46.0); HGB 13.6 gm/dL (11.4-16.0); MCHC 32.4 g/dL (31.0-37.0); MCV 89.4 fL (80.0-100.0); Mean Platelet Volume 7.1; Platelet Count 259 k/uL (150-450); RBC 4.71 m/uL (3.80-5.40); RDW 12.4 % (11.5-15.5); WBC 4.7 k/uL (3.8-10.6)
[2019-10-23 02:21] LABS: Hemoglobin A1C 5.9 % (4.0-6.0)
[2019-10-23 02:33] LABS: % Iron Saturation 23.66 (12.00-45.00); African American GFR (CKD) 83.4 (60.0-200.0); Albumin 4.5 g/dL (3.80-4.90); Albumin/Globulin Ratio 2.37 (1.60-3.17); Anion Gap 12.3 mmol/L (4.00-12.00); BUN/Creat Ratio 13.33 Ratio (12.00-20.00); Calcium 9.4 mg/dL (8.7-10.3); Carbon Dioxide 25.7 mmol/L (21.6-31.8); Chol/HDL Ratio 2.76; Globulin 1.9 g/dL (1.6-3.3); LDL Cholesterol,Calculated 100.4 mg/dL (0.0-131.0); Magnesium 1.8 mg/dL (1.5-2.4); Phosphorus 4.9 mg/dL (2.4-5.1); Potassium 4.2 mmol/L (3.5-5.5); Total Bilirubin 0.5 mg/dL (0.3-1.2); Total Protein 6.4 g/dL (6.2-8.2); VLDL Calculation 19.6 mg/dL (5.00-40.00)
[2019-10-23 02:43] LABS: Folate, Serum 3.9 ng/mL
[2019-10-23 12:02] LABS: Zinc, Serum 79 ug/dL (60-130)
[2019-10-24 07:44] LABS: Vitamin A 43 ug/dL (38-106)
[2019-10-24 10:42] LABS: Vit B1(Thiamine) 45 ug/L (38-122)
[2019-10-25 00:30] LABS: Selenium 113 mcg/L (63-160)
== END | disposition home or self-care (01) ==
LOC: BARWHC3 14:29
PROVIDERS: ATTEND Surgery Plastic and Reconstructive Surgery
DX: E66.01 Morbid (severe) obesity due to excess calories (principal); Z68.26 Body mass index [BMI] 26.0-26.9, adult; Z98.84 Bariatric surgery status; E21.1 Secondary hyperparathyroidism, not elsewhere classified; E89.1 Postprocedural hypoinsulinemia; D50.9 Iron deficiency anemia, unspecified; K90.9 Intestinal malabsorption, unspecified; E44.0 Moderate protein-calorie malnutrition; E55.9 Vitamin D deficiency, unspecified; K74.1 Hepatic sclerosis; N19 Unspecified kidney failure; K50.90 Crohn's disease, unspecified, without complications; Z87.11 Personal history of peptic ulcer disease; K28.7 Chronic gastrojejunal ulcer without hemorrhage or perforation; Z71.3 Dietary counseling and surveillance; R11.0 Nausea; N39.0 Urinary tract infection, site not specified; Z98.0 Intestinal bypass and anastomosis status; G47.33 Obstructive sleep apnea (adult) (pediatric); K21.9 Gastro-esophageal reflux disease without esophagitis; Z87.19 Personal history of other diseases of the digestive system; G56.00 Carpal tunnel syndrome, unspecified upper limb; E11.9 Type 2 diabetes mellitus without complications; E03.9 Hypothyroidism, unspecified; J44.9 Chronic obstructive pulmonary disease, unspecified; F41.9 Anxiety disorder, unspecified; Z86.010 Personal history of colon polyps; Z98.890 Other specified postprocedural states; Z86.69 Personal history of other diseases of the nervous system and sense organs; Z90.49 Acquired absence of other specified parts of digestive tract
CPT/HCPCS: 36415; 80053; 80061; 82306; 82525; 82607; 82728; 82746; 83036; 83540; 83550; 83735; 83970; 84100; 84134; 84255; 84425; 84443; 84590; 84630; 85027; 85610; 85730; 99211

== ENCOUNTER 2020-03-29 14:02 | Emergency (ER) | payer OTHER ==
[2020-03-29 14:20] VITALS: TEMP 98.7
[2020-03-29] MEDS ORDERED: ONDANSETRON 4 MG/2 ML VIAL IVP STA ×2 (14:58→17:42)
[2020-03-29] MEDS ORDERED: IOPAMIDOL CONTRAST (ORAL USE) VIAL PO PRN (14:58)
[2020-03-29] MEDS ORDERED: SODIUM CHLORIDE 0.9% 1,000 ML IV STA (14:58)
[2020-03-29] MEDS ORDERED: MORPHINE SULFATE 4 MG/ML SYRINGE IV STA (14:58)
--- NOTE | 2020-03-29 15:11 | ED ---
General Adult HPI - General Chief complaint: Shortness of Breath Stated complaint: Abd Pain, SOB Time Seen by Provider: 03/29/20 14:39 Source: patient, RN notes reviewed Mode of arrival: ambulatory Limitations: no limitations - History of Present Illness Initial comments: 54-year-old female with a computed past medical history including gastric bypass 2 years ago presents to the emergency room for a chief complaint of abdominal pain. Patient states she has upper abdominal pain for the past 2-3 days. States she feels like her abdomen is distended. States she has noticed bloating in the past couple days because her pants are not fitting quite as loosely. Patient states she has had this similar feeling in the past when she was found to have a pneumoperitoneum 6 weeks after surgery. This was several years ago. Patient does admit to nausea but states she always has nausea and is chronically taking Zofran for this. She denies fevers. patient was noted by triage to have shortness of breath but she reports this is from her abdominal distention which she has had before. Patient has no other complaints at this time including chest pain, abdominal pain, nausea or vomiting, headache, or visual changes. - Related Data Home Medications Medication Instructions Recorded Confirmed ALPRAZolam [Xanax] 0.5 mg PO DAILY PRN 03/31/15 10/22/19 Levothyroxine Sodium [Synthroid] 37.5 mcg PO HS 11/02/15 10/22/19 SUMAtriptan SUCCINATE [Imitrex] 100 mg PO DAILY PRN 11/02/15 10/22/19 Albuterol Sulfate [Proair Hfa] 1 - 2 puff INHALATION RT-Q6H PRN 11/21/17 10/22/19 modafiniL [Provigil] 200 mg PO BID PRN 01/17/18 10/22/19 Ondansetron [Zofran] 4 mg PO Q8HR 06/19/18 10/22/19 Pantoprazole Sodium [Protonix] 40 mg PO BID 06/19/18 10/22/19 Latanoprost [Xalatan 0.005%] 1 drop BOTH EYES HS 07/17/18 10/22/19 Vitamin C/Biotin [Hair, Skin and 1 tab PO DAILY 09/19/18 10/22/19 Nails] Fluticasone/Umeclidin/Vilanter 1 inhalation PO DAILY 05/14/19 10/22/19 [Trelegy Ellipta 100-62.5-25] Pregabalin [Lyrica] 50 mg PO TID 09/19/19 10/22/19 Previous Rx's Medication Instructions Recorded Sucralfate [Carafate] 1 gm PO BID #30 tab 09/22/19 Allergies Allergy/AdvReac Type Severity Reaction Status Date / Time ibuprofen [From Motrin] AdvReac due to Verified 03/29/20 14:21 ulcers latex AdvReac states Verified 03/29/20 14:21 "feels like chest tightens" scopolamine AdvReac contraindictated Verified 03/29/20 14:21 with glaucoma Review of Systems ROS Statement: Those systems with pertinent positive or pertinent negative responses have been documented in the HPI. ROS Other: All systems not noted in ROS Statement are negative. Past Medical History Past Medical History: Chest Pain / Angina, COPD, Diabetes Mellitus, Eye Disorder, Fibromyalgia, GERD/Reflux, Sleep Apnea/CPAP/BIPAP, Thyroid Disorder Additional Past Medical History / Comment(s): CURRENT: N & V, CANT KEEP FOOD DOWN. Migraines, hiatal hernia, Insulin Resistance Diabetes., "borderline sleep apnea"., Glaucoma., hypothyroid, thyroid nodule. SOB with activity., stomach ulcer-hx gastrojejunal perforation, neum @ [facility] Apr 2018 History of Any Multi-Drug Resistant Organisms: None Reported Past Surgical History: Bariatric Surgery, Breast Surgery, Cholecystectomy, Uterine Ablation Additional Past Surgical History / Comment(s): EXPLORATORY OF AUGUST 27, HERNIA BOWEL HORVATH SPACE DEFECT @[facility] 08-27-19. 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 Surgery for pneumoperitoneum 04/2018 @ [facility]. Adhesiolysis 09/2018. Colonoscopy with upper endoscopy 2017. Gastric sleeve (03/2016). Past Anesthesia/Blood Transfusion Reactions: Motion Sickness, Postoperative Nausea & Vomiting (PONV) Additional Past Anesthesia/Blood Transfusion Reaction / Comment(s): Has never received blood Past Psychological History: Anxiety Smoking Status: Former smoker Past Alcohol Use History: Rare Past Drug Use History: None Reported - Past Family History Mother Additional Family Medical History / Comment(s): Emphysema. Maternal great aunt had breast cancer. Father Additional Family Medical History / Comment(s): test pilot w/ plane crash- age 23. Paternal grandmother had breast cancer. General Exam Limitations: no limitations General appearance: alert, in no apparent distress Head exam: Present: atraumatic, normocephalic, normal inspection Eye exam: Present: normal appearance, PERRL, EOMI. Absent: scleral icterus, conjunctival injection, periorbital swelling ENT exam: Present: normal exam, mucous membranes moist Neck exam: Present: normal inspection, full ROM. Absent: tenderness, meningismus, lymphadenopathy Respiratory exam: Present: normal lung sounds bilaterally. Absent: respiratory distress, wheezes, rales, rhonchi, stridor Cardiovascular Exam: Present: regular rate, normal rhythm, normal heart sounds. Absent: systolic murmur, diastolic murmur, rubs, gallop, clicks GI/Abdominal exam: Present: soft, tenderness (mild upper abdominal tenderness.), normal bowel sounds. Absent: distended, guarding, rebound, rigid Neurological exam: Present: alert Course Vital Signs 03/29/20 03/29/20 03/29/20 14:17 15:35 17:21 Temperature 98.7 F Pulse Rate 87 77 71 Respiratory 20 18 18 Rate Blood Pressure 109/71 117/75 119/79 O2 Sat by Pulse 96 95 96 Oximetry 03/29/20 18:28 Temperature Pulse Rate 63 Respiratory 18 Rate Blood Pressure 133/82 O2 Sat by Pulse 97 Oximetry EKG Findings - EKG Comments: EKG Findings:: normal sinus rhythm, ventricular rate 84, SD interval 154, QTC 420 Medical Decision Making - Medical Decision Making Vitals are stable. Patient is well appearing, sitting up in bed. CBC and CMP are unremarkable. D-dimer and troponin are negative. Chest x-ray shows chronic changes. CT abdomen and pelvis shows gastric bypass surgical changes. No bowel obstruction or new acute finding. Patient reevaluated and does have significant improvement in pain. States that she has had similar symptoms several times before and they can never figure out what is going on with her. Patient is agreeable to following up with Dr. Hernandez. She will call first thing tomorrow morning. if she has any worsening symptoms she will return here. - Lab Data Result diagrams: 03/29/20 14:33 03/29/20 14:33 Lab Results 03/29/20 03/29/20 03/29/20 Range/Units 14:33 14:33 14:33 WBC 7.4 (3.8-10.6) k/uL RBC 4.93 (3.80-5.40) m/uL Hgb 14.1 (11.4-16.0) gm/dL Hct 44.2 (34.0-46.0) % MCV 89.6 (80.0-100.0) fL MCH 28.7 (25.0-35.0) pg MCHC 32.0 (31.0-37.0) g/dL RDW 12.8 (11.5-15.5) % Plt Count 371 (150-450) k/uL Neutrophils % 68 % Lymphocytes % 25 % Monocytes % 4 % Eosinophils % 2 % Basophils % 0 % Neutrophils # 5.0 (1.3-7.7) k/uL Lymphocytes # 1.9 (1.0-4.8) k/uL Monocytes # 0.3 (0-1.0) k/uL Eosinophils # 0.1 (0-0.7) k/uL Basophils # 0.0 (0-0.2) k/uL D-Dimer 0.46 (<0.60) mg/L FEU Sodium 141 (137-145) mmol/L Potassium 3.9 (3.5-5.1) mmol/L Chloride 103 (98-107) mmol/L Carbon Dioxide 30 (22-30) mmol/L Anion Gap 8 mmol/L BUN 8 (7-17) mg/dL Creatinine 0.75 (0.52-1.04) mg/dL Est GFR (CKD-EPI)AfAm >90 (>60 ml/min/1.73 sqM) Est GFR (CKD-EPI)NonAf >90 (>60 ml/min/1.73 sqM) Glucose 95 (74-99) mg/dL Calcium 9.6 (8.4-10.2) mg/dL Total Bilirubin 0.5 (0.2-1.3) mg/dL AST 19 (14-36) U/L ALT 11 (4-34) U/L Alkaline Phosphatase 65 (38-126) U/L Troponin I (0.000-0.034) ng/mL Total Protein 6.9 (6.3-8.2) g/dL Albumin 4.3 (3.5-5.0) g/dL Amylase 49 (30-110) U/L Lipase 45 (23-300) U/L Urine Color Urine Appearance (Clear) Urine pH (5.0-8.0) Ur Specific Joseph (1.001-1.035) Urine Protein (Negative) Urine Glucose (UA) (Negative) Urine Ketones (Negative) Urine Blood (Negative) Urine Nitrite (Negative) Urine Bilirubin (Negative) Urine Urobilinogen (<2.0) mg/dL Ur Leukocyte Esterase (Negative) Urine RBC (0-5) /hpf Urine WBC (0-5) /hpf Ur Squamous Epith Cells (0-4) /hpf Urine Bacteria (None) /hpf Hyaline Casts (0-2) /lpf Urine Mucus (None) /hpf 03/29/20 03/29/20 Range/Units 14:33 15:39 WBC (3.8-10.6) k/uL RBC (3.80-5.40) m/uL Hgb (11.4-16.0) gm/dL Hct (34.0-46.0) % MCV (80.0-100.0) fL MCH (25.0-35.0) pg MCHC (31.0-37.0) g/dL RDW (11.5-15.5) % Plt Count (150-450) k/uL Neutrophils % % Lymphocytes % % Monocytes % % Eosinophils % % Basophils % % Neutrophils # (1.3-7.7) k/uL Lymphocytes # (1.0-4.8) k/uL Monocytes # (0-1.0) k/uL Eosinophils # (0-0.7) k/uL Basophils # (0-0.2) k/uL D-Dimer (<0.60) mg/L FEU Sodium (137-145) mmol/L Potassium (3.5-5.1) mmol/L Chloride (98-107) mmol/L Carbon Dioxide (22-30) mmol/L Anion Gap mmol/L BUN (7-17) mg/dL Creatinine (0.52-1.04) mg/dL Est GFR (CKD-EPI)AfAm (>60 ml/min/1.73 sqM) Est GFR (CKD-EPI)NonAf (>60 ml/min/1.73 sqM) Glucose (74-99) mg/dL Calcium (8.4-10.2) mg/dL Total Bilirubin (0.2-1.3) mg/dL AST (14-36) U/L ALT (4-34) U/L Alkaline Phosphatase (38-126) U/L Troponin I <0.012 (0.000-0.034) ng/mL Total Protein (6.3-8.2) g/dL Albumin (3.5-5.0) g/dL Amylase (30-110) U/L Lipase (23-300) U/L Urine Color Yellow Urine Appearance Cloudy H (Clear) Urine pH 5.5 (5.0-8.0) Ur Specific Joseph 1.022 (1.001-1.035) Urine Protein Negative (Negative) Urine Glucose (UA) Negative (Negative) Urine Ketones Negative (Negative) Urine Blood Negative (Negative) Urine Nitrite Negative (Negative) Urine Bilirubin Negative (Negative) Urine Urobilinogen 2.0 (<2.0) mg/dL Ur Leukocyte Esterase Large H (Negative) Urine RBC 2 (0-5) /hpf Urine WBC 7 H (0-5) /hpf Ur Squamous Epith Cells 11 H (0-4) /hpf Urine Bacteria Rare H (None) /hpf Hyaline Casts 3 H (0-2) /lpf Urine Mucus Moderate H (None) /hpf Disposition Clinical Impression: Abdominal pain Disposition: HOME SELF-CARE Condition: Good Instructions (If sedation given, give patient instructions): Abdominal Pain (ED) Additional Instructions: please follow up with Dr. Stewart in one to 2 days. Return to the emergency room for any worsening symptoms. Is patient prescribed a controlled substance at d/c from ED?: No Referrals: Favio Gibbons MD [Primary Care Provider] - 1-2 days Time of Disposition: 18:38
[2020-03-29 15:13] LABS: Basophils % (A) 0 %; Eosinophils # (A) 0.1 k/uL (0-0.7); Eosinophils % (A) 2 %; HCT 44.2 % (34.0-46.0); HGB 14.1 gm/dL (11.4-16.0); Lymphocytes # (A) 1.9 k/uL (1.0-4.8); Lymphocytes % (A) 25 %; MCH 28.7 pg (25.0-35.0); MCV 89.6 fL (80.0-100.0); Mean Platelet Volume 7.1; Monocytes # (A) 0.3 k/uL (0-1.0); Monocytes % (A) 4 %; Neutrophils % (A) 68 %; Platelet Count 371 k/uL (150-450); RBC 4.93 m/uL (3.80-5.40); RDW 12.8 % (11.5-15.5); WBC 7.4 k/uL (3.8-10.6)
[2020-03-29 15:34] LABS: ALT 11 U/L (4-34); AST 19 U/L (14-36); African American GFR (CKD) >90 (>60 ml/min/1.73 sqM); Albumin 4.3 g/dL (3.5-5.0); Alkaline Phosphatase 65 U/L (38-126); Amylase 49 U/L (30-110); Anion Gap 8 mmol/L; Blood Urea Nitrogen 8 mg/dL (7-17); Calcium 9.6 mg/dL (8.4-10.2); Carbon Dioxide 30 mmol/L (22-30); Chloride 103 mmol/L (98-107); Glucose 95 mg/dL (74-99); Lipase 45 U/L (23-300); Non-African American GFR(CKD) >90 (>60 ml/min/1.73 sqM); Potassium 3.9 mmol/L (3.5-5.1); Sodium 141 mmol/L (137-145); Total Bilirubin 0.5 mg/dL (0.2-1.3); Total Protein 6.9 g/dL (6.3-8.2)
[2020-03-29 15:36] VITALS: RESP 18
[2020-03-29 16:20] LABS: Appearance,Urine Cloudy (Clear); Bacteria,Urine Rare /hpf; Bilirubin,Urine Negative (Negative); Blood,Urine Negative (Negative); Color,Urine Yellow; Glucose,Urine (UA) Negative (Negative); Hyaline Casts,Urine 3 /lpf (0-2); Ketones,Urine Negative (Negative); Leukocyte Esterase,Urine Large (Negative); Mucus,Urine Moderate /hpf; Nitrite,Urine Negative (Negative); PH, Urine 5.5 (5.0-8.0); Protein,Urine Negative (Negative); RBC,Urine 2 /hpf (0-5); Specific Gravity,Urine 1.022 (1.001-1.035); Squamous Epithelial Cell,Urine 11 /hpf (0-4); WBC,Urine 7 /hpf (0-5)
--- NOTE | 2020-03-29 17:17 | CT ---
EXAMINATION TYPE: CT abdomen pelvis w con DATE OF EXAM: 03/29/2020 HISTORY: Abdominal pain, nausea CT DLP: 817.3mGycm Automated Exposure Control for Dose Reduction was Utilized. CONTRAST: CT scan of the abdomen and pelvis is performed without oral but with IV Contrast, patient injected wi th 100 mL of Isovue 300. COMPARISON: CT abdomen and pelvis September 15, 2019. FINDINGS: LUNG BASES: Some emphysematous change in visualized lung bases. LIVER/GB: Cholecystectomy clips are redemonstrated. PANCREAS: No significant abnormality is seen. SPLEEN: No significant abnormality is seen. ADRENALS: No significant abnormality is seen. KIDNEYS: Subcentimeter exophytic cyst medially upper pole of the left kidney axial image 23. Symmetri c cortical medullary uptake and excretion without hydronephrosis seen bilaterally. BOWEL: Suboptimal evaluation without significant enteric contrast. Surgical sutures from gastric bypa ss procedure extends above the diaphragm. No suspicious small or large bowel dilatation. UTERUS/ADNEXA: Anteverted uterus. LYMPH NODES: No greater than 1cm abdominal or pelvic lymph nodes are appreciated. OSSEOUS STRUCTURES: Facet arthropathy lower lumbar spine redemonstrated. OTHER: Small fat-containing umbilical hernia. IMPRESSION: Gastric bypass surgical changes redemonstrated. No bowel obstruction. No new or suspiciou s acute findings seen.
[2020-03-29] MEDS ORDERED: METOCLOPRAMIDE 5 MG/ML 2 ML VIAL IVP STA (17:50)
--- NOTE | 2020-03-29 18:35 | XR ---
EXAMINATION TYPE: XR chest 2V DATE OF EXAM: 03/29/2020 COMPARISON: Chest x-ray and CT chest May 13, 2018 HISTORY: Chest and upper abdominal pain. TECHNIQUE: Frontal and lateral views of the chest are obtained. FINDINGS: There is background chronic emphysematous change without suspicious new focal air space op acity, pleural effusion, or pneumothorax seen. The cardiac silhouette size remains within normal rivera its. The osseous structures are intact. Overlying EKG leads are present. Cholecystectomy clips rede monstrated. IMPRESSION: Chronic emphysematous change without acute pulmonary process.
[2020-03-29 19:04] VITALS: BP 124/81; PULSE 74
== END 2020-03-29 19:00 | disposition home or self-care (01) ==
LOC: EC 14:02
DX: R14.0 Abdominal distension (gaseous) (principal); R10.10 Upper abdominal pain, unspecified; E11.39 Type 2 diabetes mellitus with other diabetic ophthalmic complication; H42 Glaucoma in diseases classified elsewhere; E03.9 Hypothyroidism, unspecified; J44.9 Chronic obstructive pulmonary disease, unspecified; F41.9 Anxiety disorder, unspecified; G47.30 Sleep apnea, unspecified; K25.9 Gastric ulcer, unspecified as acute or chronic, without hemorrhage or perforation; K44.9 Diaphragmatic hernia without obstruction or gangrene; K21.9 Gastro-esophageal reflux disease without esophagitis; M79.7 Fibromyalgia; Z79.899 Other long term (current) drug therapy; Z79.890 Hormone replacement therapy; Z79.51 Long term (current) use of inhaled steroids; Z88.8 Allergy status to other drugs, medicaments and biological substances; Z91.040 Latex allergy status; Z88.6 Allergy status to analgesic agent; Z99.89 Dependence on other enabling machines and devices; Z87.891 Personal history of nicotine dependence; Z90.49 Acquired absence of other specified parts of digestive tract; Z98.84 Bariatric surgery status
CPT/HCPCS: 36415; 93005; 85379; 80053; 82150; 83690; 84484; 85025; 81001; 71046; 74177; 99285; 96374; 96375 ×2; 96361; J2270; J2765; J2405; Q9967

== ENCOUNTER → 2020-04-07 | Outpatient (CLI) | payer OTHER ==
[2020-04-07 17:01] VITALS: BP 139/60; PULSE 64; RESP 16; TEMP 98.2; BMI 25.7
--- NOTE | 2020-04-07 17:08 | P.PN ---
Subjective Progress Note Date: 04/07/20 Has severe reflux. Needs revision of GJ to esophagoJ. CT reviewed. DATE OF SERVICE: 10/22/2019 CHIEF COMPLAINT: Status post gastric bypass HISTORY OF PRESENT ILLNESS: Josefina Bird is a 53-year-old female who is status post sleeve gastrectomy to gastric bypass 02/18/2018. She is over 1 year out. She comes in with chronic gastric ulcers. She has records from [facility]. She has history of chronic nausea. She confirms past history of taking magnesium for both headaches and nausea that improved her symptoms. Her previous weight was 201 pounds, BMI 36.8. Donovan body weight for 5 foot 2 inches is 135 pounds. Today she comes in weighing 147 pounds from 145 pounds, 2 months ago. She has gained 2 pounds in 2 months. She has lost 54 pounds lifetime. Lifetime percent excess weight loss 82 %. Body mass index reduced from 36.8 down to 26.9. PAST MEDICAL HISTORY: 1. Obstructive sleep apnea. 2. Gastroesophageal reflux disease. 3. History of hiatal hernia. 4. Carpal tunnel syndrome. 5. Diabetes type 2. 6. Hypothyroidism. 7. Chronic obstructive pulmonary disease. 8. Anxiety. 9. Colon polyps. 10. Sleep apnea. 11. Morbid obesity, BMI 36.8, initial PAST SURGICAL HISTORY: 1. Uterine ablation. 2. Left carpal tunnel release. 3. Bilateral breast reduction. 4. Upper endoscopy. 5. Lower endoscopy. 6. Status post sleeve gastrectomy. 7. Cholecystectomy. 8. Repair of perforated gastrojejunal ulcer at outside institution, Apr 2018 9. Closure of internal hernias, diagnostic laparoscopy at [place], Aug 2019 MEDICATIONS: Home Medications Medication Instructions Recorded Confirmed ALPRAZolam [Xanax] 0.5 mg PO DAILY PRN 03/31/15 10/22/19 Levothyroxine Sodium [Synthroid] 37.5 mcg PO HS 11/02/15 10/22/19 SUMAtriptan SUCCINATE [Imitrex] 100 mg PO DAILY PRN 11/02/15 10/22/19 Albuterol Sulfate [Proair Hfa] 1 - 2 puff INHALATION RT-Q6H PRN 11/21/17 10/22/19 Modafinil [Provigil] 200 mg PO BID PRN 01/17/18 10/22/19 Ondansetron [Zofran] 4 mg PO Q8HR 06/19/18 10/22/19 Pantoprazole Sodium [Protonix] 40 mg PO BID 06/19/18 10/22/19 Latanoprost [Xalatan 0.005%] 1 drop BOTH EYES HS 07/17/18 10/22/19 Vitamin C/Biotin [Hair, Skin and 1 tab PO DAILY 09/19/18 10/22/19 Nails] Fluticasone/Umeclidin/Vilanter 1 inhalation PO DAILY 05/14/19 10/22/19 [Trelegy Ellipta 100-62.5-25] Pregabalin [Lyrica] 50 mg PO TID 09/19/19 10/22/19 Previous Rx's Medication Instructions Recorded Sucralfate [Carafate] 1 gm PO BID #30 tab 09/22/19 ALLERGIES: Allergies Allergy/AdvReac Type Severity Reaction Status Date / Time latex AdvReac states Verified 10/22/19 14:56 "feels like chest tightens" scopolamine AdvReac contraindictated Verified 10/22/19 14:56 with glaucoma SOCIAL HISTORY: Former tobacco user. FAMILY HISTORY: Pertinent for morbid obesity in her mother. Also no reports of Crohn's disease or ulcerative colitis. Denies any family history of gastrointestinal cancers. She has a mother who has morbid obesity. REVIEW OF SYSTEMS: CONSTITUTIONAL: Her ideal body weight is 135 pounds for her 5 foot 2 frame. Heighest weight of 201 pounds. Prior BMI 36.8. GASTROINTESTINAL: No reports of dumping syndrome. History of colon polyps. History of ulcers ENDOCRINE: Improved insulin resistance. She is no longer on medications for diabetic control. CARDIOVASCULAR: History of hypertension. No palpitations. RESPIRATORY: History of chronic obstructive pulmonary disease. NEURO: History of migraine headaches. No strokes. HEENT: Denies any troubles with vision or hearing. GENITOURINARY: History of endometrial ablation. 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 PSYCH: History of anxiety and depression. HEMATOLOGIC: Denies any easy bruising and bleeding or prior venous thromboembolic event. SKIN: No rash. No skin cancer. PHYSICAL EXAM: VITAL SIGNS: 5 foot 2, 147 pounds. Body mass index 26.9 Vital Signs Temp 98.0 F 10/22/19 14:52 Pulse 69 10/22/19 14:52 Resp 16 10/22/19 14:52 BP 136/78 10/22/19 14:52 Pulse Ox 98 10/22/19 14:52 ABDOMEN: Soft and non-distended MUSCULOSKELETAL: No clubbing, cyanosis, or edema. GENERAL: Well-developed female in no acute distress. HEENT: No sclera icterus. Extraocular movements grossly intact. Moist buccal mucosa. Head is atraumatic, normocephalic. Hears conversational speech. No nasal drainage. NECK: Supple without lymphadenopathy. No JV distention. CHEST: Non-labored respirations and equal bilateral excursions. CARDIOVASCULAR: Regular rate and rhythm. NEUROLOGIC: No focal or lateralizing signs. Cranial nerves II through XII grossly intact. PSYCH: Appropriate affect. Alert and oriented to person, place and time. SKIN: Well-perfused. Good skin turgor. MEDICAL REPORTS: Demonstrates chronic ulcers LABS: Vitamin D is low, PTH is elevated EGD FINDINGS: Squamocolumnar junction at 32 cm Stricture of approximately 10 mm encountered. Chronic gastrojejunal ulceration encountered of anastomosis at 40 cm Successful balloon dilatation to 15 mm. Diaphragmatic hiatus at 35 cm. ASSESSMENT: 1. Previous history of morbid obesity due to excess calories 2. Body mass index reduced from 36.8 down to 26.9 3. Status post gastric bypass. 4. History of perforated gastrojejunal ulcer 5. Chronic gastric ulcers. 6. Reactive hypoglycemia, new 7. Dietary surveillance and counseling 8. Chronic nausea 9. UTI 10. Chronic gastric ulcers PLAN: 1. Continue with antacids. 2. Recommend vitamin 3. Recommend bariatric labs 4. Recommend magnesium 400 mg daily. 5. Medical reconciliation were reviewed with her with multiple side effects of chronic nausea from her inhalers and her Provigil. 6. Surgical intervention for chronic nausea including gastric ulcers were also reviewed as a last resort. Objective - Vital Signs Vital signs: Vital Signs Temp 98.2 F 04/07/20 16:58 Pulse 64 04/07/20 16:58 Resp 16 04/07/20 16:58 BP 139/60 04/07/20 16:58 Pulse Ox Intake & Output 04/06/20 04/07/20 04/07/20 18:59 06:59 18:59 Weight 63.957 kg
== END | disposition home or self-care (01) ==
LOC: BARWHC3 15:17
PROVIDERS: ATTEND Surgery Plastic and Reconstructive Surgery
DX: Z48.815 Encounter for surgical aftercare following surgery on the digestive system (principal); E03.9 Hypothyroidism, unspecified; K25.7 Chronic gastric ulcer without hemorrhage or perforation; G47.33 Obstructive sleep apnea (adult) (pediatric); N39.0 Urinary tract infection, site not specified; R73.9 Hyperglycemia, unspecified; Z71.3 Dietary counseling and surveillance; F17.200 Nicotine dependence, unspecified, uncomplicated; Z79.891 Long term (current) use of opiate analgesic; Z79.899 Other long term (current) drug therapy; Z79.890 Hormone replacement therapy; Z90.49 Acquired absence of other specified parts of digestive tract; Z99.89 Dependence on other enabling machines and devices; Z98.890 Other specified postprocedural states
CPT/HCPCS: 99211

== ENCOUNTER 2020-10-21 08:38 | Emergency (ER) | payer OTHER ==
[2020-10-21] MEDS ORDERED: SODIUM CHLORIDE 0.9% 1,000 ML IV STA (09:03)
[2020-10-21] MEDS ORDERED: SODIUM CHLORIDE 0.9% 500 ML 500 ML IV STA (09:03)
[2020-10-21] MEDS ORDERED: ONDANSETRON 4 MG/2 ML VIAL IVP STA (09:12)
[2020-10-21] MEDS ORDERED: MORPHINE SULFATE 4 MG/ML SYRINGE IVP STA (09:12)
--- NOTE | 2020-10-21 09:20 | ED ---
Abdominal Pain HPI - General Chief Complaint: Abdominal Pain Stated Complaint: Abd Pain, Vomiting Time Seen by Provider: 10/21/20 08:57 Source: patient, RN notes reviewed Mode of arrival: ambulatory Limitations: no limitations - History of Present Illness Initial Comments: 55 show female presents emergency Department chief complaint of abdominal pain. Patient's been having on and off symptoms over the last 3-4 days. Patient does have a history of Albert-en-Y gastric bypass with revision by Dr. Hernandez. Patient states that in 2018 she had pneumoperitoneum in which she was sent to [facility]. Patient states that she has a burning twisting sensation in her lower abdomen. She states that she felt fine throughout the night but the pain returned this morning on her way to work. She has been to nausea vomiting. Patient states she has recurrent vomiting especially after eating which is normal for her. Patient denies dysuria hematuria or urinary frequency no change in bowel habits including diarrhea constipation melena or hematochezia. - Related Data Home Medications Medication Instructions Recorded Confirmed ALPRAZolam [Xanax] 0.5 mg PO DAILY PRN 03/31/15 10/22/19 Levothyroxine Sodium [Synthroid] 37.5 mcg PO HS 11/02/15 10/22/19 SUMAtriptan SUCCINATE [Imitrex] 100 mg PO DAILY PRN 11/02/15 10/22/19 Albuterol Sulfate [Proair Hfa] 1 - 2 puff INHALATION RT-Q6H PRN 11/21/17 10/22/19 modafiniL [Provigil] 200 mg PO BID PRN 01/17/18 10/22/19 Ondansetron [Zofran] 4 mg PO Q8HR 06/19/18 10/22/19 Pantoprazole Sodium [Protonix] 40 mg PO BID 06/19/18 10/22/19 Latanoprost [Xalatan 0.005%] 1 drop BOTH EYES HS 07/17/18 10/22/19 Vitamin C/Biotin [Hair, Skin and 1 tab PO DAILY 09/19/18 10/22/19 Nails] Fluticasone/Umeclidin/Vilanter 1 inhalation PO DAILY 05/14/19 10/22/19 [Trelegy Ellipta 100-62.5-25] Pregabalin [Lyrica] 50 mg PO TID 09/19/19 10/22/19 Previous Rx's Medication Instructions Recorded Sucralfate [Carafate] 1 gm PO BID #30 tab 09/22/19 Nitrofurantoin Monohyd/M-Cryst 100 mg PO Q12HR #10 cap 10/21/20 [Macrobid] Allergies Allergy/AdvReac Type Severity Reaction Status Date / Time ibuprofen [From Motrin] AdvReac due to Verified 10/21/20 08:56 ulcers latex AdvReac states Verified 10/21/20 08:56 "feels like chest tightens" scopolamine AdvReac contraindictated Verified 10/21/20 08:56 with glaucoma Review of Systems ROS Statement: Those systems with pertinent positive or pertinent negative responses have been documented in the HPI. ROS Other: All systems not noted in ROS Statement are negative. Past Medical History Past Medical History: Chest Pain / Angina, COPD, Diabetes Mellitus, Eye Disorder, Fibromyalgia, GERD/Reflux, Sleep Apnea/CPAP/BIPAP, Thyroid Disorder Additional Past Medical History / Comment(s): CURRENT: N & V, CANT KEEP FOOD DOWN. Migraines, hiatal hernia, Insulin Resistance Diabetes., "borderline sleep apnea"., Glaucoma., hypothyroid, thyroid nodule. SOB with activity., stomach ulcer-hx gastrojejunal perforation, neum @ [facility] Apr 2018 History of Any Multi-Drug Resistant Organisms: None Reported Past Surgical History: Bariatric Surgery, Breast Surgery, Cholecystectomy, Uterine Ablation Additional Past Surgical History / Comment(s): EXPLORATORY OF AUGUST 27, HERNIA BOWEL HORVATH SPACE DEFECT @[facility] 08-27-19. 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 Surgery for pneumoperitoneum 04/2018 @ [facility]. Adhesiolysis 09/2018. Colonoscopy with upper endoscopy 2017. Gastric sleeve (03/2016). Past Anesthesia/Blood Transfusion Reactions: Motion Sickness, Postoperative Nausea & Vomiting (PONV) Additional Past Anesthesia/Blood Transfusion Reaction / Comment(s): Has never received blood Past Psychological History: Anxiety Smoking Status: Former smoker Past Alcohol Use History: Rare Past Drug Use History: None Reported - Past Family History Mother Additional Family Medical History / Comment(s): Emphysema. Maternal great aunt had breast cancer. Father Additional Family Medical History / Comment(s): boat pilot w/ plane crash- age 23. Paternal grandmother had breast cancer. General Exam Limitations: no limitations General appearance: alert, in no apparent distress Head exam: Present: atraumatic, normocephalic, normal inspection Neck exam: Present: normal inspection, full ROM. Absent: tenderness, meningismus, lymphadenopathy Respiratory exam: Present: normal lung sounds bilaterally. Absent: respiratory distress, wheezes, rales, rhonchi, stridor Cardiovascular Exam: Present: regular rate, normal rhythm, normal heart sounds. Absent: systolic murmur, diastolic murmur, rubs, gallop, clicks GI/Abdominal exam: Present: soft, tenderness (Mild bilateral lower), normal bowel sounds. Absent: distended, guarding, rebound, rigid Back exam: Absent: CVA tenderness (R), CVA tenderness (L) Neurological exam: Present: alert, oriented X3 Skin exam: Present: warm, dry, intact, normal color. Absent: rash Course Vital Signs 10/21/20 10/21/20 08:51 10:56 Temperature 97.9 F 98 F Pulse Rate 93 68 Respiratory 16 18 Rate Blood Pressure 138/89 133/87 O2 Sat by Pulse 100 100 Oximetry - Reevaluation(s) Reevaluation #1: 10/21/20 11:25 Patient laying in bed no signs of distress and no apparent discomfort. Updated and results Medical Decision Making - Medical Decision Making 55-year-old presented for lower abdominal pain. CT does not reveal any acute changes status post surgical changes patient stomach lining no patient has no reported pain no clinical symptoms. Patient does have lower pain is suprapubic region patient does have 12 WBCs and urinalysis with moderate bacteria though there is some contamination with skin cells. Patient we given a short course of antibiotics pending urine culture return parameters discussed. - Lab Data Result diagrams: 10/21/20 09:19 10/21/20 09:19 Lab Results 10/21/20 10/21/20 10/21/20 Range/Units 09:19 09:19 09:19 WBC 6.2 (3.8-10.6) k/uL RBC 4.85 (3.80-5.40) m/uL Hgb 14.2 (11.4-16.0) gm/dL Hct 42.7 (34.0-46.0) % MCV 88.0 (80.0-100.0) fL MCH 29.2 (25.0-35.0) pg MCHC 33.1 (31.0-37.0) g/dL RDW 12.5 (11.5-15.5) % Plt Count 283 (150-450) k/uL MPV 6.8 Neutrophils % 59 % Lymphocytes % 32 % Monocytes % 4 % Eosinophils % 3 % Basophils % 1 % Neutrophils # 3.7 (1.3-7.7) k/uL Lymphocytes # 2.0 (1.0-4.8) k/uL Monocytes # 0.2 (0-1.0) k/uL Eosinophils # 0.2 (0-0.7) k/uL Basophils # 0.1 (0-0.2) k/uL Sodium 142 (137-145) mmol/L Potassium 3.6 (3.5-5.1) mmol/L Chloride 102 (98-107) mmol/L Carbon Dioxide 27 (22-30) mmol/L Anion Gap 13 mmol/L BUN 10 (7-17) mg/dL Creatinine 0.67 (0.52-1.04) mg/dL Est GFR (CKD-EPI)AfAm >90 (>60 ml/min/1.73 sqM) Est GFR (CKD-EPI)NonAf >90 (>60 ml/min/1.73 sqM) Glucose 99 (74-99) mg/dL Plasma Lactic Acid Bryce (0.7-2.0) mmol/L Calcium 9.8 (8.4-10.2) mg/dL Total Bilirubin 0.5 (0.2-1.3) mg/dL AST 19 (14-36) U/L ALT 12 (4-34) U/L Alkaline Phosphatase 63 (38-126) U/L Total Protein 7.3 (6.3-8.2) g/dL Albumin 4.7 (3.5-5.0) g/dL Amylase 68 (30-110) U/L Lipase 94 (23-300) U/L Urine Color Yellow Urine Appearance Slightly Cloudy H (Clear) Urine pH 5.5 (5.0-8.0) Ur Specific [place] 1.027 (1.001-1.035) Urine Protein 20 (Negative) Urine Glucose (UA) Negative (Negative) Urine Ketones Negative (Negative) Urine Blood Negative (Negative) Urine Nitrite Negative (Negative) Urine Bilirubin Negative (Negative) Urine Urobilinogen 2.0 (<2.0) mg/dL Ur Leukocyte Esterase Large (Negative) Urine WBC 12 H (0-5) /hpf Ur Squamous Epith Cells 10 H (0-4) /hpf Urine Bacteria Moderate H (None) /hpf 10/21/20 Range/Units 09:19 WBC (3.8-10.6) k/uL RBC (3.80-5.40) m/uL Hgb (11.4-16.0) gm/dL Hct (34.0-46.0) % MCV (80.0-100.0) fL MCH (25.0-35.0) pg MCHC (31.0-37.0) g/dL RDW (11.5-15.5) % Plt Count (150-450) k/uL MPV Neutrophils % % Lymphocytes % % Monocytes % % Eosinophils % % Basophils % % Neutrophils # (1.3-7.7) k/uL Lymphocytes # (1.0-4.8) k/uL Monocytes # (0-1.0) k/uL Eosinophils # (0-0.7) k/uL Basophils # (0-0.2) k/uL Sodium (137-145) mmol/L Potassium (3.5-5.1) mmol/L Chloride (98-107) mmol/L Carbon Dioxide (22-30) mmol/L Anion Gap mmol/L BUN (7-17) mg/dL Creatinine (0.52-1.04) mg/dL Est GFR (CKD-EPI)AfAm (>60 ml/min/1.73 sqM) Est GFR (CKD-EPI)NonAf (>60 ml/min/1.73 sqM) Glucose (74-99) mg/dL Plasma Lactic Acid Bryce 2.5 H* (0.7-2.0) mmol/L Calcium (8.4-10.2) mg/dL Total Bilirubin (0.2-1.3) mg/dL AST (14-36) U/L ALT (4-34) U/L Alkaline Phosphatase (38-126) U/L Total Protein (6.3-8.2) g/dL Albumin (3.5-5.0) g/dL Amylase (30-110) U/L Lipase (23-300) U/L Urine Color Urine Appearance (Clear) Urine pH (5.0-8.0) Ur Specific [place] (1.001-1.035) Urine Protein (Negative) Urine Glucose (UA) (Negative) Urine Ketones (Negative) Urine Blood (Negative) Urine Nitrite (Negative) Urine Bilirubin (Negative) Urine Urobilinogen (<2.0) mg/dL Ur Leukocyte Esterase (Negative) Urine WBC (0-5) /hpf Ur Squamous Epith Cells (0-4) /hpf Urine Bacteria (None) /hpf Disposition Clinical Impression: Abdominal pain Disposition: HOME SELF-CARE Condition: Stable Instructions (If sedation given, give patient instructions): Abdominal Pain (ED) Additional Instructions: Please return to the Emergency Department if symptoms worsen or any other concerns. Prescriptions: Nitrofurantoin Monohyd/M-Cryst [Macrobid] 100 mg PO Q12HR #10 cap Is patient prescribed a controlled substance at d/c from ED?: No Referrals: Favio Gibbons MD [Primary Care Provider] - 1-2 days Time of Disposition: 11:27
[2020-10-21 09:37] LABS: Basophils # (A) 0.1 k/uL (0-0.2); Basophils % (A) 1 %; Eosinophils # (A) 0.2 k/uL (0-0.7); Eosinophils % (A) 3 %; HCT 42.7 % (34.0-46.0); HGB 14.2 gm/dL (11.4-16.0); Lymphocytes % (A) 32 %; MCH 29.2 pg (25.0-35.0); MCHC 33.1 g/dL (31.0-37.0); Mean Platelet Volume 6.8; Monocytes # (A) 0.2 k/uL (0-1.0); Monocytes % (A) 4 %; Neutrophils # (A) 3.7 k/uL (1.3-7.7); Neutrophils % (A) 59 %; Platelet Count 283 k/uL (150-450); RBC 4.85 m/uL (3.80-5.40); RDW 12.5 % (11.5-15.5); WBC 6.2 k/uL (3.8-10.6)
[2020-10-21 09:47] LABS: ALT 12 U/L (4-34); AST 19 U/L (14-36); African American GFR (CKD) >90 (>60 ml/min/1.73 sqM); Albumin 4.7 g/dL (3.5-5.0); Alkaline Phosphatase 63 U/L (38-126); Amylase 68 U/L (30-110); Anion Gap 13 mmol/L; Blood Urea Nitrogen 10 mg/dL (7-17); Calcium 9.8 mg/dL (8.4-10.2); Carbon Dioxide 27 mmol/L (22-30); Chloride 102 mmol/L (98-107); Glucose 99 mg/dL (74-99); Lipase 94 U/L (23-300); Non-African American GFR(CKD) >90 (>60 ml/min/1.73 sqM); Potassium 3.6 mmol/L (3.5-5.1); Sodium 142 mmol/L (137-145); Total Bilirubin 0.5 mg/dL (0.2-1.3); Total Protein 7.3 g/dL (6.3-8.2)
[2020-10-21 09:59] LABS: Appearance,Urine Slightly Cloudy (Clear); Bilirubin,Urine Negative (Negative); Blood,Urine Negative (Negative); Color,Urine Yellow; Glucose,Urine (UA) Negative (Negative); Ketones,Urine Negative (Negative); PH, Urine 5.5 (5.0-8.0); Protein,Urine 20 (Negative); Specific Gravity,Urine 1.027 (1.001-1.035)
[2020-10-21 10:00] LABS: Leukocyte Esterase,Urine Large (Negative); Nitrite,Urine Negative (Negative)
[2020-10-21 10:08] LABS: WBC,Urine 12 /hpf (0-5)
[2020-10-21 10:09] LABS: Bacteria,Urine Moderate /hpf; Squamous Epithelial Cell,Urine 10 /hpf (0-4)
--- NOTE | 2020-10-21 10:32 | CT ---
EXAMINATION TYPE: CT abdomen pelvis w con DATE OF EXAM: 10/21/2020 COMPARISON: 03/29/2020 HISTORY: 55-year-old female with abdominal pain. TECHNIQUE: Contiguous axial scanning of the abdomen and pelvis following administration of 100 ml Iso jerry 300 IV contrast. Delayed images through the kidneys and coronal/sagittal reconstructions perform ed. CT DLP: 685.7 mGycm Automated exposure control for dose reduction was used. FINDINGS: Heart normal size without pericardial effusion. Some scattered mosaic attenuation in the visualized l ower lungs could reflect small airways disease. There appears to be some mild circumferential wall thickening of the distal esophagus and what appear s to be a small hiatal hernia. Post surgical changes of Albert-en-Y gastric bypass and what appears to be surgery relating to prior sleeve gastrectomy as well. This seems to be some mucosal hyperemia and fluid within the gastric antrum and duodenal bulb region, reference axial image 27 through 29. Overall appearance is similar compared to 03/29/2020. No focal liver lesion. Bile duct mildly dilated at 9 mm, acceptable given postcholecystectomy status and unchanged from 03/29/2020. Portal venous system is patent. Adrenal glands, right kidney, spleen, pancreas show no gross abnormal mobility. Tiny hilar splenule. Stable 9 mm cortical cyst in the medial left kidney. Symmetric uptake and excretion of contrast from both kidneys. Clustered mildly enlarged left upper quadrant mesenteric lymph nodes measuring up to 1.0 cm, coronal image 30 and axial image 28 and 31 remain unchanged. No dilated small bowel, free fluid, or free air. While the appendix is not discretely visualized, no secondary findings of acute appendicitis in the r ight lower quadrant. Scattered mild stool. Mildly redundant proximal sigmoid colon. No pericolonic inflammatory change. Bladder is urine distended. Uterus anteverted. Both ovaries are visualized. No abnormal fluid collect ion in the pelvis or pelvic lymphadenopathy. Bones: Facet arthropathy lower lumbar spine. No osseous destructive process. IMPRESSION: 1. STATUS POST ALBERT-EN-Y GASTRIC BYPASS. THERE ALSO APPEAR TO BE SOME SURGICAL CHANGES RELATING TO A PRIOR SLEEVE GASTRECTOMY. THERE IS SOME MUCOSAL HYPEREMIA ALONG THE GASTRIC ANTRUM AND DUODENAL BULB REGION. CORRELATE FOR POSSIBLE GASTRITIS OF THE EXCLUDED PORTION OF THE STOMACH. 2. IN ADDITION, THERE IS A SMALL HIATAL HERNIA. MILD CIRCUMFERENTIAL WALL THICKENING OF THE DISTAL ES OPHAGUS COULD REFLECT ESOPHAGITIS. 3. CLUSTERED BORDERLINE TO MILDLY ENLARGED LEFT UPPER QUADRANT MESENTERIC LYMPH NODES MEASURING UP TO 1.0 CM REMAINS UNCHANGED, LIKELY CHRONIC REACTIVE/POST INFLAMMATORY. 4. THE VISUALIZED LOWER LUNGS SHOW SOME MOSAIC ATTENUATION THAT MAY BE SEEN WITH SMALL AIRWAYS DISEAS E.
[2020-10-21 10:57] VITALS: BP 133/87; PULSE 68; RESP 18; TEMP 98
== END 2020-10-21 11:40 | disposition home or self-care (01) ==
LOC: EC 08:38
DX: R10.9 Unspecified abdominal pain (principal); E03.9 Hypothyroidism, unspecified; F41.9 Anxiety disorder, unspecified; E11.9 Type 2 diabetes mellitus without complications; J44.9 Chronic obstructive pulmonary disease, unspecified; K21.9 Gastro-esophageal reflux disease without esophagitis; Z87.891 Personal history of nicotine dependence
CPT/HCPCS: 36415; 80053; 82150; 83605; 83690; 85025; 81001; 87086; 74177; 99284; 96374; 96375; 96361; J2270; J2405; Q9967

== ENCOUNTER 2021-12-20 03:42 | Observation (INO) | payer OTHER ==
[2021-12-20 03:49] VITALS: TEMP 97.4
--- NOTE | 2021-12-20 04:26 | XR ---
EXAMINATION TYPE: XR chest 2V DATE OF EXAM: 12/20/2021 COMPARISON: 03/29/2020 HISTORY: Chest pain TECHNIQUE: 2 views FINDINGS: Heart is normal. Lungs are clear of infiltrate. There is no heart failure. There are no hil ar masses. Costophrenic angles are clear IMPRESSION: Normal chest. No change.
[2021-12-20 04:46] LABS: Basophils % (A) 1 %; Eosinophils # (A) 0.2 k/uL (0-0.7); Eosinophils % (A) 3 %; HCT 43.4 % (34.0-46.0); HGB 14.1 gm/dL (11.4-16.0); Lymphocytes % (A) 42 %; MCH 29.5 pg (25.0-35.0); MCHC 32.6 g/dL (31.0-37.0); MCV 90.6 fL (80.0-100.0); Mean Platelet Volume 8.4; Monocytes # (A) 0.4 k/uL (0-1.0); Monocytes % (A) 5 %; Neutrophils # (A) 3.5 k/uL (1.3-7.7); Neutrophils % (A) 48 %; Platelet Count 294 k/uL (150-450); RBC 4.79 m/uL (3.80-5.40); RDW 12.8 % (11.5-15.5); WBC 7.3 k/uL (3.8-10.6)
[2021-12-20 05:00] LABS: ALT 13 U/L (4-34); AST 20 U/L (14-36); African American GFR (CKD) >90 (>60 ml/min/1.73 sqM); Albumin 4.3 g/dL (3.5-5.0); Alkaline Phosphatase 52 U/L (38-126); Anion Gap 8 mmol/L; Blood Urea Nitrogen 12 mg/dL (7-17); Calcium 9.2 mg/dL (8.4-10.2); Carbon Dioxide 30 mmol/L (22-30); Chloride 102 mmol/L (98-107); Glucose 75 mg/dL (74-99); Magnesium 1.8 mg/dL (1.6-2.3); Non-African American GFR(CKD) 81 (>60 ml/min/1.73 sqM); Potassium 3.3 mmol/L (3.5-5.1); Sodium 140 mmol/L (137-145); Total Bilirubin 0.4 mg/dL (0.2-1.3); Total Protein 7.2 g/dL (6.3-8.2)
[2021-12-20 05:03] LABS: INR 0.9 (<1.2); Partial Thromboplastin Time 22.1 sec (22.0-30.0); Prothrombin Time 9.9 sec (9.0-12.0)
[2021-12-20] MEDS ORDERED: MORPHINE SULFATE 4 MG/ML SYRINGE IV STA (05:23)
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
[2021-12-20] MEDS ORDERED: NITROGLYCERIN SL TABS 0.4 MG TAB SUBLINGUAL PRN (06:29)
[2021-12-20 07:39] VITALS: RESP 16
[2021-12-20] MEDS ORDERED: NON FORMULARY DRUG (Rimegepant Sulfate [Nurtec Odt] 75 MG Tablet) PO PRN (08:56)
[2021-12-20] MEDS ORDERED: ALBUTEROL NEBULIZED 2.5 MG/3 ML INHALATION PRN (08:56)
[2021-12-20] MEDS ORDERED: SUMAtriptan succinate 50 MG TAB PO PRN (08:56)
[2021-12-20] MEDS ORDERED: ALPRAZolam 0.25 MG TAB PO PRN (08:56)
[2021-12-20] MEDS ORDERED: MORPHINE SULFATE 2 MG/ML SYRINGE IVP STA (08:58)
[2021-12-20] MEDS ORDERED: ONDANSETRON 4 MG/2 ML VIAL IVP PRN (08:58)
[2021-12-20] MEDS ORDERED: PANTOPRAZOLE 40 MG TABLET PO SCH (09:00)
[2021-12-20] MEDS ORDERED: POTASSIUM CHLORIDE ER 20 MEQ TAB.ER PO STA (09:05)
[2021-12-20 09:25] VITALS: BP 123/87; PULSE 63
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
[2021-12-20] MEDS ORDERED: SYMBICORT 80-4.5 MCG INHALER INHALATION SCH (20:00)
[2021-12-21] MEDS ORDERED: IPRATROPIUM 0.5 MG/2.5 ML NEBU INHALATION SCH (08:00)
[2021-12-21] MEDS ORDERED: ASPIRIN 325 MG TAB PO SCH (09:00)
--- NOTE | 2021-12-21 19:39 | P.DS ---
Providers Date of admission: 12/20/21 06:57 Expected date of discharge: 12/20/21 Attending physician: Lisa Castellanos Consults: 12/20/21 06:30 Consult Physician Routine Consulting Provider: Vini Morley Consult Reason/Comments: chest pain Do you want consulting provider notified?: Yes [facility] Course: final diagnosis Chest pain, ruled out ACS hypokalemia history of chest pain/angina COPD history not in exacerbation Diabetes mellitus Fibromyalgia Gastroesophageal reflux disease Hypothyroidism Sleep apnea Anxiety GI prophylaxis DVT prophylaxis Full code Discharge disposition Patient is being discharged in a stable condition with guarded prognosis to home. Patient will follow-up with Dr. Gibbons in the outpatient setting upon disc harge. Patient is to follow Up with cardiology in the outpatient setting in one week. Recommend repeat labs in 2 to 3 days in a prescription was provided. Patient to follow up with General surgery and also her primary care provider and pulmonary on discharge.Total time taken is greater than 35 minutes. Hospital course This is a 56-year-old female who was recently admitted with chest pain and was being closely monitored. Patient was evaluated by cardiology Dr. Worthy and will follow up in the outpatient setting for further testing in one week. Patient chest xray was negative, ecg WNL, troponins x 2 were negative, and labs all normal except for potassium of 3.3 which was replaced and recommend repeat labs in 2 days with pcp follow up to assess electrolytes. Patient to follow up with Dr. Rollins for her chronic gastric issues. Currently no reports of worsening chest pain, shortness of breath, or palpitations. Patient is afebrile. No reports of nausea or vomiting and patient is tolerating diet. Patient will be discharged home today. Physical exam: Gen: This is a 56 year old female alert and oriented x3. thin built, frail. HEENT: Head is atraumatic, normocephalic. Pupils equal, round. Sclerae is anicteric. NECK: Supple. No JVD. No lymphadenopathy. No thyromegaly. LUNGS: Clear to auscultation. No wheezes or rhonchi. No intercostal retractions. HEART: Regular rate and rhythm. No murmur. ABDOMEN: Soft. Bowel sounds are present. No masses. No tenderness. EXTREMITIES: No pedal edema. No calf tenderness. NEUROLOGICAL: Patient is awake, alert and oriented x3. Cranial nerves 2 through 12 are grossly intact. skin: no rashes or lesions noted. Please refer to medication reconciliation sheet for a list of medications. The impression and plan of care has been dictated by Jessica Mendes, Nurse Practitioner as directed. Dr. Wesley MD I have performed a history and examination and MDM of this patient, discussed the same with the dictator, and agree with the dictator's assessment and plan as written ,documented as a scribe. Based on total visit time, I have performed more than 50% of the visit. Patient Condition at Discharge: Stable Plan - Discharge Summary New Discharge Prescriptions: New modafiniL [Provigil] 200 mg PO BID PRN 3 Days #6 tablet PRN Reason: sleepiness Continue Rimegepant Sulfate [Nurtec Odt] 75 mg PO DAILY PRN PRN Reason: Migraine Headache ALPRAZolam [Xanax] 0.25 mg PO DAILY PRN PRN Reason: Anxiety SUMAtriptan SUCCINATE [Imitrex] 100 mg PO DAILY PRN #30 tab PRN Reason: MIGRAINES Albuterol Sulfate [Proair Hfa] 1 - 2 puff INHALATION RT-Q6H PRN 30 Days #1 each PRN Reason: Shortness Of Breath Pantoprazole Sodium [Protonix] 40 mg PO DAILY #30 tab Levothyroxine Sodium [Synthroid] 37.5 mcg PO HS #15 tab Fluticasone/Umeclidin/Vilanter [Trelegy Ellipta 100-62.5-25] 1 puff INHALATION RT-DAILY 30 Days #1 each Discontinued modafiniL [Provigil] 200 mg PO BID PRN PRN Reason: SLEEPINESS Discharge Medication List ALPRAZolam [Xanax] 0.25 mg PO DAILY PRN 12/20/21 [History] Albuterol Sulfate [Proair Hfa] 1 - 2 puff INHALATION RT-Q6H PRN 30 Days #1 each 12/20/21 [Rx] Fluticasone/Umeclidin/Vilanter [Trelegy Ellipta 100-62.5-25] 1 puff INHALATION RT-DAILY 30 Days #1 each 12/20/21 [Rx] Levothyroxine Sodium [Synthroid] 37.5 mcg PO HS #15 tab 05/03/22 [Rx] Pantoprazole Sodium [Protonix] 40 mg PO DAILY #30 tab 12/20/21 [Rx] Rimegepant Sulfate [Nurtec Odt] 75 mg PO DAILY PRN 12/20/21 [History] SUMAtriptan SUCCINATE [Imitrex] 100 mg PO DAILY PRN #30 tab 12/20/21 [Rx] modafiniL [Provigil] 200 mg PO BID PRN 3 Days #6 tablet 12/20/21 [Rx] Follow up Appointment(s)/Referral(s): Robert Worthy MD [STAFF PHYSICIAN] - 1 Week Favio Gibbons MD [Primary Care Provider] - 1-2 days Ambulatory/Diagnostic Orders: Basic Metabolic Panel [LAB.AMB] Time Frame: 3 Days, Location: None Selected Patient Instructions/Handouts: Chest Pain (ED) Activity/Diet/Wound Care/Special Instructions: Dr. Olson to see prior to discharge activity Limited until follow-up Follow-up with primary care provider on discharge Follow-up with cardiology in one week as discussed Continue taking medications as prescribed Recommend repeat BMP in 2-3 days to monitor electrolytes Continue heart healthy diet Discharge Disposition: HOME SELF-CARE
== END 2021-12-20 13:58 | disposition home or self-care (01) ==
LOC: EC 03:42 → 6NMEDSUR 06:57
PROVIDERS: ADMIT Hospitalist; ATTEND Hospitalist
DX: R07.89 Other chest pain (principal); R10.13 Epigastric pain; R07.2 Precordial pain; R11.2 Nausea with vomiting, unspecified; J44.9 Chronic obstructive pulmonary disease, unspecified; E11.9 Type 2 diabetes mellitus without complications; E87.6 Hypokalemia; M79.7 Fibromyalgia; K21.9 Gastro-esophageal reflux disease without esophagitis; G47.30 Sleep apnea, unspecified; G43.909 Migraine, unspecified, not intractable, without status migrainosus; K44.9 Diaphragmatic hernia without obstruction or gangrene; H40.9 Unspecified glaucoma; E03.9 Hypothyroidism, unspecified; Z87.11 Personal history of peptic ulcer disease; Z90.49 Acquired absence of other specified parts of digestive tract; Z98.84 Bariatric surgery status; F41.9 Anxiety disorder, unspecified; Z87.891 Personal history of nicotine dependence; E04.1 Nontoxic single thyroid nodule; Z53.29 Procedure and treatment not carried out because of patient's decision for other reasons; I07.1 Rheumatic tricuspid insufficiency; E66.9 Obesity, unspecified; Z68.41 Body mass index [BMI] 40.0-44.9, adult; Z71.9 Counseling, unspecified; Z79.899 Other long term (current) drug therapy; Z79.890 Hormone replacement therapy; Z88.8 Allergy status to other drugs, medicaments and biological substances; Z91.040 Latex allergy status; Z82.5 Family history of asthma and other chronic lower respiratory diseases; Z80.3 Family history of malignant neoplasm of breast
CPT/HCPCS: 96376; 96375; 96374; 99285; 36415; 93005; 80053; 83735; 84484; 85025; 85610; 85730; 83036; 71046; G0378; J2270 ×2; J2405

== ENCOUNTER → 2022-01-09 | Outpatient (CLI) | payer OTHER ==
--- NOTE | 2022-01-09 21:37 | CT ---
EXAMINATION TYPE: CT abdomen wo con DATE OF EXAM: 01/09/2022 COMPARISON: CT dated 10/21/2020 HISTORY: EPIGASTRIC PAIN CT DLP: 428 mGycm Automated exposure control for dose reduction was used. TECHNIQUE: Helical acquisition of images was performed from the lung bases through the top of iliac crest to include entire abdomen. CONTRAST: Performed with Oral Contrast and without IV contrast. FINDINGS: LUNG BASES: Bilateral anterior basal subsegmental pulmonary atelectasis. LIVER/GB: No definite hepatic focal lesion by this nonenhanced CT scan. Previous cholecystectomy. PANCREAS: No significant abnormality is seen. SPLEEN: No significant abnormality is seen. ADRENALS: No significant abnormality is seen. KIDNEYS: Left upper pole renal cyst, appreciated previously. Grossly unremarkable kidneys otherwise. BOWEL: Thickened inferior aspect of the esophagus, please correlate with upper GI endoscopy results. Small hiatal hernia. Previous gastric surgery and gastrojejunostomy, appreciated previously. A small gastric cannot be excluded by this CT scan. Unremarkable small bowel anastomosis in the left side of the abdomen. No evidence of bowel obstruction. Scattered segments of mild nonspecific colonic wall t hickening. LYMPH NODES: No pathologically enlarged lymph nodes in the abdomen. OSSEOUS STRUCTURES: No gross aggressive bone lesion. FREE AIR: No free air is visualized. OTHER: Arterial atherosclerotic calcifications. No free abdominal fluid. Small fat-containing umbilic al hernia. IMPRESSION: Postsurgical changes and nonspecific GI findings as described above, for clinical correlation and fur ther workup. Other incidental findings as described above.
== END | disposition home or self-care (01) ==
LOC: RADCTMAIN 16:59
PROVIDERS: ATTEND Internal Medicine
DX: K44.9 Diaphragmatic hernia without obstruction or gangrene (principal); K42.9 Umbilical hernia without obstruction or gangrene; K63.89 Other specified diseases of intestine; J98.11 Atelectasis; Z90.49 Acquired absence of other specified parts of digestive tract
CPT/HCPCS: 74150

== ENCOUNTER 2022-05-03 07:31 | Day surgery (SDC) | payer OTHER ==
[~2022-05-03 07:31] MED LIST changes: +LIDOCAINE 1% (10MG/ML) FOR IV START INTRADERMA PRN; -LIDOCAINE 1% 20 ML VIAL (10MG/ML) FOR IV START INTRADERMA PRN
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
[2022-05-03 08:14] VITALS: RESP 16; TEMP 98.4
[2022-05-03] MEDS ORDERED: LIDOCAINE 2% INJ 20 MG/ML (2 ML VIAL) ONE (08:38)
[2022-05-03] MEDS ORDERED: PROPOFOL 10 MG/ML 20 ML VIAL IV ONE (08:38)
--- NOTE | 2022-05-03 08:57 | P.PCN ---
Date of Procedure: 05/03/22 Description of Procedure: PREOPERATIVE DIAGNOSIS: Dysphagia. s/p Albert-en-y gastric bypass. Nausea with vomiting. POSTOPERATIVE DIAGNOSIS: Dysphagia. s/p Albert-en-y gastric bypass. Nausea with vomiting. Acute gastric ulcer with bleeding Gastrojejunal stricture with chronic ulcer without perforation OPERATION: Esophagogastrojejunoscopy with balloon dilatation from 8 to 12 mm. Esophagogastrojejunoscopy with cold biopsies of gastric pouch and jejunum SURGEON: Nu Stewart MD ANESTHESIA: MAC. INDICATIONS: The patient is a 56-year-old female who presents with a history of dysphagia, gastric bypass including nausea and vomiting. Benefits and risks of the procedure were described. Informed consent was obtained. DESCRIPTION: The patient was brought into the endoscopy suite and laid in the left lateral decubitus position. After a timeout was confirmed, the procedure was initiated. An Olympus gastroscope was passed along the posterior oropharynx down to the distal esophagus where the squamocolumnar junction was unremarkable. The gastric pouch was entered. A gastrojejunal stricture of 8 mm was found as the adult gastroscope was 9.5 mm in size. A [employer] balloon dilator was placed through the scope. Final insufflation up to 20 mm was performed with a total of 2 minutes. The scope was advanced up to 60 cm from the incisors into the Albert limb. The mucosa of the gastrojejunal anastomosis was intact. However chronic superficial gastrojejunal marginal ulcer was encountered. No full- thickness injury was encountered. The GI tract was desufflated. The patient tolerated the procedure well. FINDINGS: Squamocolumnar junction unremarkable at 36 cm. Stricture of approximately 8 mm encountered, 41 cm from the incisors Large superficial acute gastric ulcer 2 cm in gastric pouch Chronic gastrojejunal ulceration encountered. Successful balloon dilatation to 12 mm. Gastric pouch 5 cm. RECOMMENDATIONS: Start combined therapy of Carafate and omeprazole of at least 4 weeks.
--- NOTE | 2022-05-03 09:43 | P.PCN ---
Date of Procedure: 05/03/22 Description of Procedure: PREOPERATIVE DIAGNOSIS: Personal history of colon polyps POSTOPERATIVE DIAGNOSIS: Tubular adenoma ascending colon OPERATION: Colonoscopy to the ileocecal valve and appendiceal orifice, cecum Colonoscopy with hot snare polypectomy SURGEON: Nu Stewart MD. ANESTHESIA: MAC. INDICATIONS: The patient is an 56-year-old female who presents personal history of colon polyps. Last colonoscopy 5 years. Benefits and risks were described and informed consent was obtained. DESCRIPTION OF PROCEDURE: The patient had undergone Sutab prep. The patient had been brought into the operating room and laid in the left lateral decubitus position. After adequate intravenous sedation, the rectum was examined with 2% lidocaine jelly. No external hemorrhoids were encountered. The rectal tone was within normal limits. No lesions were palpated in the rectal vault. An Olympus colonoscope was advanced until the cecum, ileocecal valve and appendiceal orifice were clearly viewed. The prep was good. No sigmoid diverticulosis was encountered. Colonic polyps were found and removed. No evidence of focal colitis was found. Retroflexion of the scope demonstrated grade 2 internal hemorrhoids without active bleeding or inflammation. The colon was desufflated. The patient had tole rated the procedure well. Withdrawal time was over 6 minutes. FINDINGS: Aronchick preparation quality scale 2 (1-5) Internal hemorrhoids, grade 2 No external hemorrhoids, grade 4. No arteriovenous malformations. No sigmoid diverticulosis Removal of 1 polyp: - Snare polypectomy at ascending colon, 10 mm tubulovillous adenoma polyp. No focal colitis. RECOMMENDATIONS: Repeat colonoscopy in 3 years, 2024 Plan - Discharge Summary Discharge Rx Participant: No New Discharge Prescriptions: New Sucralfate [Carafate] 1 gm PO BID #120 tablet Continue Rimegepant Sulfate [Nurtec Odt] 75 mg PO DAILY PRN PRN Reason: Migraine Headache SUMAtriptan succinate [Imitrex] 100 mg PO DAILY PRN #30 tab PRN Reason: MIGRAINES Albuterol Sulfate [Proair Hfa] 1 - 2 puff INHALATION RT-Q6H PRN 30 Days #1 each PRN Reason: Shortness Of Breath Cyclobenzaprine [Flexeril] 10 mg PO HS PRN PRN Reason: MUSCLE SPASMS Lisdexamfetamine Dimesylate [Vyvanse] 40 mg PO DAILY PRN PRN Reason: Anxiety Pantoprazole [Protonix] 40 mg PO BID 30 Days #60 tab Levothyroxine Sodium [Synthroid] 37.5 mcg PO QAM ALPRAZolam [ALPRAZolam XR] 0.5 mg PO BID PRN PRN Reason: Anxiety Fluticasone/Umeclidin/Vilanter [Trelegy Ellipta 100-62.5-25] 1 puff INHALATION Discontinued modafiniL [Provigil] 200 mg PO BID PRN 3 Days #6 tablet PRN Reason: sleepiness Discharge Medication List Albuterol Sulfate [Proair Hfa] 1 - 2 puff INHALATION RT-Q6H PRN 30 Days #1 each 12/20/21 [Rx] Rimegepant Sulfate [Nurtec Odt] 75 mg PO DAILY PRN 12/20/21 [History] SUMAtriptan succinate [Imitrex] 100 mg PO DAILY PRN #30 tab 12/20/21 [Rx] ALPRAZolam [ALPRAZolam XR] 0.5 mg PO BID PRN 04/13/22 [History] Cyclobenzaprine [Flexeril] 10 mg PO HS PRN 04/13/22 [History] Levothyroxine Sodium [Synthroid] 37.5 mcg PO QAM 04/13/22 [History] Lisdexamfetamine Dimesylate [Vyvanse] 40 mg PO DAILY PRN 04/13/22 [History] Pantoprazole [Protonix] 40 mg PO BID 30 Days #60 tab 04/13/22 [Rx] Fluticasone/Umeclidin/Vilanter [Trelegy Ellipta 100-62.5-25] 1 puff INHALATION 05/02/22 [History] Sucralfate [Carafate] 1 gm PO BID #120 tablet 05/03/22 [Rx] Follow up [facility]ment(s[facility] [place] [place] [facility] [place] [facility] Patient Instructions/Handouts: *Surgery [facility] - (Anesthesia) Endoscopy Discharge Instructions, Diet for Stomach Ulcers and Gastritis (ED), Colorectal Polyps (GEN), Esophageal Dilation (DC) Activity/Diet/Wound Care/Special Instructions: Repeat colonoscopy in 3 years, 2024 Discharge Disposition: HOME SELF-CARE
[2022-05-03 09:47] VITALS: BP 138/83; PULSE 58
== END 2022-05-03 10:07 | disposition home or self-care (01) ==
LOC: ORWHC2ENDO 07:31
PROVIDERS: ATTEND Surgery Plastic and Reconstructive Surgery
DX: Z12.11 Encounter for screening for malignant neoplasm of colon (principal); K25.0 Acute gastric ulcer with hemorrhage; D12.2 Benign neoplasm of ascending colon; K64.8 Other hemorrhoids; K28.7 Chronic gastrojejunal ulcer without hemorrhage or perforation; K56.699 Other intestinal obstruction unspecified as to partial versus complete obstruction; R13.10 Dysphagia, unspecified; Z86.010 Personal history of colon polyps; Z98.84 Bariatric surgery status; R07.9 Chest pain, unspecified; J44.9 Chronic obstructive pulmonary disease, unspecified; H57.9 Unspecified disorder of eye and adnexa; M79.7 Fibromyalgia; E07.9 Disorder of thyroid, unspecified; K91.0 Vomiting following gastrointestinal surgery; F41.9 Anxiety disorder, unspecified; K21.9 Gastro-esophageal reflux disease without esophagitis; F10.99 Alcohol use, unspecified with unspecified alcohol-induced disorder; G43.909 Migraine, unspecified, not intractable, without status migrainosus; I25.10 Atherosclerotic heart disease of native coronary artery without angina pectoris; E04.1 Nontoxic single thyroid nodule; Z98.82 Breast implant status; Z90.89 Acquired absence of other organs; Z98.890 Other specified postprocedural states; Z98.891 History of uterine scar from previous surgery; Z87.891 Personal history of nicotine dependence; Z80.3 Family history of malignant neoplasm of breast; Z83.6 Family history of other diseases of the respiratory system; Z79.51 Long term (current) use of inhaled steroids; Z79.890 Hormone replacement therapy; Z79.899 Other long term (current) drug therapy; Z91.040 Latex allergy status; Z88.6 Allergy status to analgesic agent; Z88.9 Allergy status to unspecified drugs, medicaments and biological substances; T75.3XXD Motion sickness, subsequent encounter
CPT/HCPCS: 88305; 45385; 43239; 43249; J2704; J2001; C1726

== ENCOUNTER 2022-05-23 11:02 | Observation (INO) | payer OTHER ==
[2022-05-23] MEDS ORDERED: SODIUM CHLORIDE 0.9% 500 ML 500 ML IV STA (11:22)
--- NOTE | 2022-05-23 11:28 | ED ---
General Adult HPI - General Chief complaint: GI Bleed Stated complaint: possible GI bleed Time Seen by Provider: 05/23/22 11:18 Source: patient, RN notes reviewed, old records reviewed Mode of arrival: ambulatory Limitations: no limitations - History of Present Illness Initial comments: 56-year-old female presents to the emergency room with 4 days of abdominal pain. States that yesterday she had one episode of black tarry stool and another small episode of black tarry stool this morning. She states that she has had nausea and vomiting but that is normal for her since having her gastric sleeve. Denies any hematemesis. She states that she did undergo colonoscopy with Dr. Stewart on May 03. She was placed on Protonix and Carafate on May 17. There was discussion with Dr. Stewart that patient may need another dilatation surgery. Patient has a history of lupus, GERD, fibromyalgia, surgical history bariatric sleeve, adhesions, cholecystectomy, uterine ablation -: days(s) (4) Location: abdomen Consistency: intermittent Associated Symptoms: nausea/vomiting, other (black tarry stools ) - Related Data Home Medications Medication Instructions Recorded Confirmed Rimegepant Sulfate [Nurtec Odt] 75 mg PO DAILY PRN 12/20/21 05/23/22 ALPRAZolam [ALPRAZolam XR] 0.5 mg PO BID PRN 04/13/22 05/23/22 Cyclobenzaprine [Flexeril] 10 mg PO HS PRN 04/13/22 05/23/22 Levothyroxine Sodium [Synthroid] 37.5 mcg PO QAM 04/13/22 05/23/22 Lisdexamfetamine Dimesylate 40 mg PO DAILY PRN 04/13/22 05/23/22 [Vyvanse] Fluticasone/Umeclidin/Vilanter 1 puff INHALATION RT-DAILY 05/02/22 05/23/22 [Trelegy Ellipta 100-62.5-25] Previous Rx's Medication Instructions Recorded Albuterol Sulfate [Proair Hfa] 1 - 2 puff INHALATION RT-Q6H PRN 12/20/21 30 Days #1 each SUMAtriptan succinate [Imitrex] 100 mg PO DAILY PRN #30 tab 12/20/21 Pantoprazole [Protonix] 40 mg PO BID 30 Days #60 tab 04/13/22 Sucralfate [Carafate] 1 gm PO BID #120 tablet 05/03/22 Allergies Allergy/AdvReac Type Severity Reaction Status Date / Time ibuprofen [From Motrin] AdvReac due to Verified 05/23/22 12:55 ulcers latex AdvReac states Verified 05/23/22 12:55 "feels like chest tightens" scopolamine AdvReac contraindictated Verified 05/23/22 12:55 with glaucoma Review of Systems ROS Statement: Those systems with pertinent positive or pertinent negative responses have been documented in the HPI. ROS Other: All systems not noted in ROS Statement are negative. Past Medical History Past Medical History: Chest Pain / Angina, COPD, Eye Disorder, Fibromyalgia, GERD/Reflux, Thyroid Disorder Additional Past Medical History / Comment(s): WAS DIABETIC BEFORE HER BARIATRIC PROCEDURES. Migraines, hiatal hernia, thyroid nodule. Gastrojejunal perforation, pneumoperitoneum History of Any Multi-Drug Resistant Organisms: None Reported Past Surgical History: Bariatric Surgery, Breast Surgery, Cholecystectomy, Uterine Ablation Additional Past Surgical History / Comment(s): EXPLORATORY OF AUGUST 27, HERNIA BOWEL OHRVATH SPACE DEFECT @[facility] 08-27-19. 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 Surgery for pneumoperitoneum 04/2018 @ [facility]. Adhesiolysis 09/2018. Colonoscopy with upper endoscopy 2017. Gastric sleeve (03/2016). Past Anesthesia/Blood Transfusion Reactions: Motion Sickness, Postoperative Nausea & Vomiting (PONV) Additional Past Anesthesia/Blood Transfusion Reaction / Comment(s): Has never received blood Past Psychological History: Anxiety Smoking Status: Former smoker Past Alcohol Use History: Rare Past Drug Use History: None Reported - Past Family History Mother Additional Family Medical History / Comment(s): Emphysema. Maternal great aunt had breast cancer. Father Additional Family Medical History / Comment(s): docking pilot w/ plane crash- age 22. Paternal grandmother had breast cancer. General Exam Limitations: no limitations General appearance: alert, in no apparent distress Head exam: Present: atraumatic, normocephalic Eye exam: Present: normal appearance. Absent: scleral icterus, conjunctival injection, periorbital swelling, periorbital tenderness ENT exam: Present: mucous membranes moist Neck exam: Present: full ROM. Absent: tenderness, meningismus Respiratory exam: Present: normal lung sounds bilaterally. Absent: respiratory distress, wheezes, rales, rhonchi, stridor, chest wall tenderness, accessory muscle use Cardiovascular Exam: Present: regular rate GI/Abdominal exam: Present: soft, tenderness (Left upper quadrant, epigastric). Absent: distended, guarding, rebound, rigid Rectal exam: Present: normal rectal tone, black stool. Absent: fecal impaction, mass, tenderness Extremities exam: Present: normal inspection, full ROM, normal capillary refill. Absent: pedal edema Back exam: Present: full ROM. Absent: tenderness, CVA tenderness (R), CVA tenderness (L), rash noted Neurological exam: Present: alert, oriented X3 Psychiatric exam: Present: normal affect, normal mood Skin exam: Present: warm, dry, normal color. Absent: cyanosis, diaphoretic, petechiae, pallor Course Vital Signs 05/23/22 05/23/22 11:04 13:24 Temperature 97.6 F 97.8 F Pulse Rate 88 69 Respiratory 16 16 Rate Blood Pressure 138/85 131/83 O2 Sat by Pulse 98 98 Oximetry Medical Decision Making - Medical Decision Making Patient presents with abdominal pain since Sunday with 2 black tarry stools, once yesterday and once today. Patient describes the pain as sharp and sometimes like some "kicked her" epigastric and upper left quadrant. She was given Dilaudid with minimal relief. History: [facility] 2019 hernia bowel horvath space defect; Adhesiolysis 2019; 2018 revision to gastric bypass Albert-en-Y; Pneumoperitoneum 2018; Gastric sleeve 2016 KUB x-ray shows nonspecific abdomen with no evidence of obstruction. Labs show no evidence of leukocytosis, hemoglobin and hematocrit are stable. Occult blood positive. CT the abdomen was performed per Dr. Stewart, shows no acute abdominal pelvic process. Postsurgical changes from gastric bypass redemonstrated. No evidence of bowel obstruction. No pneumoperitoneum or free fluid. Patient is hemodynamically stable. No active bleeding in the emergency room. She will be admitted for GI bleed with consults to surgery. I did speak with Dr. Stewart who is agreeable. Patient is agreeable to this plan of care.Case discussed with Dr. Chavez. - Lab Data Result diagrams: 05/23/22 11:26 05/23/22 11:26 Lab Results 05/23/22 05/23/22 05/23/22 Range/Units 11:26 11:26 11:26 WBC 6.6 (3.8-10.6) k/uL RBC 4.46 (3.80-5.40) m/uL Hgb 12.9 (11.4-16.0) gm/dL Hct 39.6 (34.0-46.0) % MCV 88.8 (80.0-100.0) fL MCH 28.9 (25.0-35.0) pg MCHC 32.6 (31.0-37.0) g/dL RDW 12.9 (11.5-15.5) % Plt Count 325 (150-450) k/uL MPV 7.4 Neutrophils % 65 % Lymphocytes % 26 % Monocytes % 4 % Eosinophils % 3 % Basophils % 1 % Neutrophils # 4.2 (1.3-7.7) k/uL Lymphocytes # 1.7 (1.0-4.8) k/uL Monocytes # 0.3 (0-1.0) k/uL Eosinophils # 0.2 (0-0.7) k/uL Basophils # 0.0 (0-0.2) k/uL PT 10.3 (9.0-12.0) sec INR 0.9 (<1.2) APTT 23.1 (22.0-30.0) sec Sodium 140 (137-145) mmol/L Potassium 3.5 (3.5-5.1) mmol/L Chloride 99 (98-107) mmol/L Carbon Dioxide 29 (22-30) mmol/L Anion Gap 12 mmol/L BUN 13 (7-17) mg/dL Creatinine 0.86 (0.52-1.04) mg/dL Est GFR (CKD-EPI)AfAm 87 (>60 ml/min/1.73 sqM) Est GFR (CKD-EPI)NonAf 76 (>60 ml/min/1.73 sqM) Glucose 135 H (74-99) mg/dL Plasma Lactic Acid Bryce (0.7-2.0) mmol/L Calcium 9.8 (8.4-10.2) mg/dL Magnesium 1.5 L (1.6-2.3) mg/dL Total Bilirubin 0.5 (0.2-1.3) mg/dL AST 18 (14-36) U/L ALT 12 (4-34) U/L Alkaline Phosphatase 67 (38-126) U/L Total Protein 7.3 (6.3-8.2) g/dL Albumin 4.7 (3.5-5.0) g/dL Stool Occult Blood (Negative) 05/23/22 05/23/22 Range/Units 11:26 11:26 WBC (3.8-10.6) k/uL RBC (3.80-5.40) m/uL Hgb (11.4-16.0) gm/dL Hct (34.0-46.0) % MCV (80.0-100.0) fL MCH (25.0-35.0) pg MCHC (31.0-37.0) g/dL RDW (11.5-15.5) % Plt Count (150-450) k/uL MPV Neutrophils % % Lymphocytes % % Monocytes % % Eosinophils % % Basophils % % Neutrophils # (1.3-7.7) k/uL Lymphocytes # (1.0-4.8) k/uL Monocytes # (0-1.0) k/uL Eosinophils # (0-0.7) k/uL Basophils # (0-0.2) k/uL PT (9.0-12.0) sec INR (<1.2) APTT (22.0-30.0) sec Sodium (137-145) mmol/L Potassium (3.5-5.1) mmol/L Chloride (98-107) mmol/L Carbon Dioxide (22-30) mmol/L Anion Gap mmol/L BUN (7-17) mg/dL Creatinine (0.52-1.04) mg/dL Est GFR (CKD-EPI)AfAm (>60 ml/min/1.73 sqM) Est GFR (CKD-EPI)NonAf (>60 ml/min/1.73 sqM) Glucose (74-99) mg/dL Plasma Lactic Acid Bryce 1.1 (0.7-2.0) mmol/L Calcium (8.4-10.2) mg/dL Magnesium (1.6-2.3) mg/dL Total Bilirubin (0.2-1.3) mg/dL AST (14-36) U/L ALT (4-34) U/L Alkaline Phosphatase (38-126) U/L Total Protein (6.3-8.2) g/dL Albumin (3.5-5.0) g/dL Stool Occult Blood Positive H (Negative) Disposition Clinical Impression: GIB (gastrointestinal bleeding), Abdominal pain Disposition: ADMITTED IP TO THIS [facility] Decision Date: 05/23/22 Decision Time: 12:14
[2022-05-23] MEDS ORDERED: HYDROmorphone 0.5 MG/0.5 ML SYRINGE IVP STA (11:31)
[2022-05-23 11:34] LABS: Basophils % (A) 1 %; Eosinophils # (A) 0.2 k/uL (0-0.7); Eosinophils % (A) 3 %; HCT 39.6 % (34.0-46.0); HGB 12.9 gm/dL (11.4-16.0); Lymphocytes # (A) 1.7 k/uL (1.0-4.8); Lymphocytes % (A) 26 %; MCH 28.9 pg (25.0-35.0); MCHC 32.6 g/dL (31.0-37.0); MCV 88.8 fL (80.0-100.0); Mean Platelet Volume 7.4; Monocytes # (A) 0.3 k/uL (0-1.0); Monocytes % (A) 4 %; Neutrophils # (A) 4.2 k/uL (1.3-7.7); Neutrophils % (A) 65 %; Platelet Count 325 k/uL (150-450); RBC 4.46 m/uL (3.80-5.40); RDW 12.9 % (11.5-15.5); WBC 6.6 k/uL (3.8-10.6)
[2022-05-23 11:42] LABS: Albumin 4.7 g/dL (3.5-5.0); Calcium 9.8 mg/dL (8.4-10.2); Magnesium 1.5 mg/dL (1.6-2.3); Potassium 3.5 mmol/L (3.5-5.1); Total Bilirubin 0.5 mg/dL (0.2-1.3); Total Protein 7.3 g/dL (6.3-8.2)
--- NOTE | 2022-05-23 11:44 | XR ---
EXAMINATION TYPE: XR KUB DATE OF EXAM: 05/23/2022 COMPARISON: None HISTORY: Pain TECHNIQUE: One view abdominal series FINDINGS: The osseous structures are intact. The bowel gas pattern is nonspecific. Lung bases are clear. Surg ical clips gallbladder fossa. Hypertrophic degenerative changes spine. Metallic postsurgical changes involving the upper abdomen. Mild thickening along the anterior, left acetabulum only partially inclu ded in field of view. IMPRESSION: 1. Nonspecific abdomen. No evidence of obstruction.
[2022-05-23] MEDS ORDERED: MAGNESIUM OXIDE 400 MG TAB PO STA (11:50)
[2022-05-23 11:52] LABS: INR 0.9 (<1.2); Partial Thromboplastin Time 23.1 sec (22.0-30.0); Prothrombin Time 10.3 sec (9.0-12.0)
[2022-05-23] MEDS ORDERED: ACETAMINOPHEN TAB 325 MG TAB PO PRN (12:38)
[2022-05-23] MEDS ORDERED: NALOXONE 0.4 MG/ML 1 ML VIAL IV PRN (12:38)
[2022-05-23] MEDS ORDERED: CYCLOBENZAPRINE 10 MG TAB PO PRN (13:04)
[2022-05-23] MEDS ORDERED: ALPRAZolam 0.25 MG TAB PO PRN (13:04)
[2022-05-23] MEDS ORDERED: ALBUTEROL NEBULIZED 2.5 MG/3 ML INHALATION PRN (13:04)
[2022-05-23] MEDS ORDERED: SUMAtriptan succinate 50 MG TAB PO PRN (13:04)
[2022-05-23] MEDS ORDERED: NON FORMULARY DRUG (Rimegepant Sulfate [Nurtec Odt] 75 MG Tablet) PO PRN (13:04)
[2022-05-23] MEDS ORDERED: NON FORMULARY DRUG (Lisdexamfetamine Dimesylate [Vyvanse] 40 MG Capsule) PO PRN (13:04)
[2022-05-23] MEDS: SODIUM CHLORIDE 0.9% 1,000 ML IV SCH (13:24)
[2022-05-23] MEDS: HYDROmorphone 0.5 MG/0.5 ML SYRINGE IVP PRN ×2 (13:27→17:16)
[2022-05-23] MEDS ORDERED: MELATONIN 3 MG TABLET PO PRN (13:56)
--- NOTE | 2022-05-23 14:20 | P.HPIM ---
History of Present Illness H&P Date: 05/23/22 Chief Complaint: abdominal pain Patient is a 56-year-old female with history of acid reflux and recent upper and lower endoscopies on 05/03/22 which showed a large ulcer, COPD, and hypothyroidism who presented to the ER with complaints of dark tarry stools. In the ER she underwent an extensive evaluation. Initial vital signs are within normal limits. Initial laboratory analysis was remarkable for magnesium of 1.5. Hemoglobin was normal at 12.9. Patient was found to be guaiac positive. Dr. Stewart was contacted and agreed to see the patient in consultation. Patient was placed in observation. Patient seen and examined at bedside. She states that she has been struggling with abdominal pain on a chronic basis since having her revision for her prior gastric sleeve. However her abdominal pain changed and was worse and recurrent Sunday. She describes as epigastric with radiation down to the suprapubic area. She has been feeling very fatigued. She has chronic nausea, no seems new for her. She then started having dark tarry bowel movements the first one late last evening and she again had 1 additional. She is currently having some a bdominal discomfort. She does report that she has been taking her Protonix and her Carafate. She denies any NSAIDs, tobacco use, or alcohol use. She also reports that for the last 1-2 weeks she has had worsening joint pains in her knees and hip. She has required IV iron in the past and has had difficulty with B12 and vitamin D levels. She also reports an increase in her migraine frequency. Pertinent positives and negatives as discussed in HPI, a complete review of systems was performed and all other systems are negative. Vital signs reviewed General: nontoxic, no distress, appears at stated age Derm: warm, dry Head: atraumatic, normocephalic, symmetric Eyes: EOMI, no lid lag, anicteric sclera, pupils equal round reactive to light ENT: Nose and ears atraumatic, no thrush, no pharyngeal erythema Neck: No thyromegaly, no cervical lymphadenopathy, trachea midline, supple Mouth: no lip lesion, mucus membranes moist Cardiovascular: S1S2 reg, no murmur, positive posterior tibial pulse bilateral, no edema, capillary refill less than 2 seconds Lungs: clear to auscultation bilateral, no rhonchi, no rales, no wheeze, no accessory muscle use Abdominal: soft, tender to palpation epigastric, no guarding, no appreciable organomegaly, normal bowel sounds Ext: no gross muscle atrophy, moving all 4 extremities family, no contractures Neuro: CN II-XII grossly intact, light touch intact all bilateral lower extremities Psych: Alert, oriented, appropriate affect Assessment/Plan: GI bleed, suspect upper with recent gastric pouch severe wall ulcer with bleeding -Serial hemoglobin -IV PPI -Hold Carafate as scope may be needed -Consult surgery -Clear liquid diet, nothing by mouth after midnight Multiple joint pains Status post gastric bypass - Check iron stores, B12, and vitamin D levels -Continue outpatient follow-up COPD without exacerbation -Resume home bronchodilators Hypothyroidism -Synthroid The patient is admitted with an anticipated less than 2 midnight stay for evaluation of GI bleed. Surrogate decision-maker: son or daughter CODE STATUS: Full DVT prophylaxis: SCDs given GI bleed Discussed with: Patient, ED provider Anticipated discharge date: in 1-[address]: home A total of 65 minutes was spent on the care of this complex patient more than 50% of the time was spent in counseling and care coordination. Past Medical History Past Medical History: Chest Pain / Angina, COPD, Eye Disorder, Fibromyalgia, GERD/Reflux, Thyroid Disorder Additional Past Medical History / Comment(s): WAS DIABETIC BEFORE HER BARIATRIC PROCEDURES. Migraines, hiatal hernia, thyroid nodule. Gastrojejunal perforation, pneumoperitoneum History of Any Multi-Drug Resistant Organisms: None Reported Past Surgical History: Bariatric Surgery, Breast Surgery, Cholecystectomy, Uterine Ablation Additional Past Surgical History / Comment(s): EXPLORATORY OF AUGUST 27, HERNIA BOWEL HORVATH SPACE DEFECT @[place] 08-27-19. 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 Surgery for pneumoperitoneum 04/2018 @ [facility]. Adhesiolysis 09/2018. Colonoscopy with upper endoscopy 2017. Gastric sleeve (03/2016). Past Anesthesia/Blood Transfusion Reactions: Motion Sickness, Postoperative Nausea & Vomiting (PONV) Additional Past Anesthesia/Blood Transfusion Reaction / Comment(s): Has never re ceived blood Past Psychological History: Anxiety Smoking Status: Former smoker Past Alcohol Use History: Rare Past Drug Use History: None Reported - Past Family History Mother Additional Family Medical History / Comment(s): Emphysema. Maternal great aunt had breast cancer. Father Additional Family Medical History / Comment(s): commercial airline pilot w/ plane crash- age 23. Paternal grandmother had breast cancer. Medications and Allergies Home Medications Medication Instructions Recorded Confirmed Type Albuterol Sulfate [Proair Hfa] 1 - 2 puff INHALATION RT-Q6H PRN 12/20/21 05/23/22 Rx 30 Days #1 each Rimegepant Sulfate [Nurtec Odt] 75 mg PO DAILY PRN 12/20/21 05/23/22 History SUMAtriptan succinate [Imitrex] 100 mg PO DAILY PRN #30 tab 12/20/21 05/23/22 Rx ALPRAZolam [ALPRAZolam XR] 0.5 mg PO BID PRN 04/13/22 05/23/22 History Cyclobenzaprine [Flexeril] 10 mg PO HS PRN 04/13/22 05/23/22 History Levothyroxine Sodium [Synthroid] 37.5 mcg PO QAM 04/13/22 05/23/22 History Lisdexamfetamine Dimesylate 40 mg PO DAILY PRN 04/13/22 05/23/22 History [Vyvanse] Pantoprazole [Protonix] 40 mg PO BID 30 Days #60 tab 04/13/22 05/23/22 Rx Fluticasone/Umeclidin/Vilanter 1 puff INHALATION RT-DAILY 05/02/22 05/23/22 History [Trelegy Ellipta 100-62.5-25] Sucralfate [Carafate] 1 gm PO BID #120 tablet 05/03/22 05/23/22 Rx Allergies Allergy/AdvReac Type Severity Reaction Status Date / Time ibuprofen [From Motrin] AdvReac due to Verified 05/23/22 12:55 ulcers latex AdvReac states Verified 05/23/22 12:55 "feels like chest tightens" scopolamine AdvReac contraindictated Verified 05/23/22 12:55 with glaucoma Physical Exam Osteopathic Statement: *. No significant issues noted on an osteopathic structural exam other than those noted in the History and Physical/Consult. Vitals: Vital Signs Temp Pulse Resp BP Pulse Ox 05/23/22 13:24 97.8 F 69 16 131/83 98 05/23/22 11:04 97.6 F 88 16 138/85 98 Intake and Output 05/22/22 05/23/22 05/23/22 22:59 06:59 14:59 Other: Weight 57.153 kg Results CBC & Chem 7: 05/23/22 11:26 05/23/22 11:26 Labs: Abnormal Lab Results - Last 24 Hours (Table) 05/23/22 05/23/22 Range/Units 11:26 11:26 Glucose 135 H (74-99) mg/dL Magnesium 1.5 L (1.6-2.3) mg/dL Stool Occult Blood Positive H (Negative)
[2022-05-23] MEDS: PANTOPRAZOLE 40 MG/10 ML VIAL IVP SCH ×2 (14:32→20:03)
[2022-05-23] MEDS: ONDANSETRON 4 MG/2 ML VIAL IVP PRN (15:19)
--- NOTE | 2022-05-23 15:27 | CT ---
EXAMINATION TYPE: CT abdomen pelvis w con CT DLP: 543.1 mGycm, Automated exposure control for dose reduction was used. DATE OF EXAM: 05/23/2022 3:16 PM COMPARISON: CT abdomen pelvis most recent from 04/13/2022 . CLINICAL INDICATION:Female, 56 years old with history of abd pain hx ulcers; GIB TECHNIQUE: Standard CT of the abdomen and pelvis following the administration of 100 cc of Isovue 3 00 IV contrast material. Coronal and sagittal reformats were performed. FINDINGS: LOWER CHEST: Posterior dependent subsegmental atelectasis is noted. ABDOMEN LIVER: Visualized portions unremarkable. GALLBLADDER AND BILE DUCTS: The gallbladder is surgically absent. Mild prominence of the extrahepatic bile duct which is nonspecific considering cholecystectomy. PANCREAS: Unremarkable. SPLEEN: Unremarkable. ADRENAL GLANDS: Unremarkable. KIDNEYS AND URETERS: No evidence of hydronephrosis or renal calculus. The kidneys enhance symmetrical ly. Stable subcentimeter left superior pole cortical hypodense lesion, likely cyst. PELVIS BLADDER: Unremarkable REPRODUCTIVE: Anteverted uterus redemonstrated. ABDOMEN & PELVIS STOMACH AND BOWEL: Surgical sutures from gastric bypass procedure extends above the diaphragm redemon strated. No significant hyperdense material within the bowel. No evidence of bowel obstruction. PERITONEUM: No evidence of pneumoperitoneum or free fluid. VASCULATURE: Mild atherosclerotic calcifications are present throughout the abdominal aorta and its b ranches. No evidence of aortic aneurysm. MUSCULOSKELETAL: No acute osseous abnormalities LYMPH NODES: No gross evidence for lymphadenopathy. SOFT TISSUE/ABDOMINAL WALL: Tiny fat-containing umbilical hernia. IMPRESSION: 1. No acute abdominal/pelvic process. 2. Postsurgical changes from gastric bypass redemonstrated.
[2022-05-23] MEDS ORDERED: PANTOPRAZOLE 40 MG TABLET PO SCH (17:30)
[2022-05-23] MEDS: SUCRALFATE 1 GM TAB PO SCH (20:03)
[2022-05-23 21:44] LABS: HGB 11.4 gm/dL (11.4-16.0); MCH 29.3 pg (25.0-35.0); MCHC 32.5 g/dL (31.0-37.0); Mean Platelet Volume 7.2; Platelet Count 282 k/uL (150-450); RBC 3.89 m/uL (3.80-5.40); RDW 12.8 % (11.5-15.5); WBC 6.3 k/uL (3.8-10.6)
[2022-05-24] MEDS: SODIUM CHLORIDE 0.9% 1,000 ML IV SCH (02:07)
[2022-05-24 02:08] LABS: % Iron Saturation 6.72 (12.00-45.00); Ferritin 38.5 ng/mL (10.0-291.0)
[2022-05-24] MEDS: HYDROmorphone 0.5 MG/0.5 ML SYRINGE IVP PRN ×2 (02:12→07:51)
[2022-05-24] MEDS: ONDANSETRON 4 MG/2 ML VIAL IVP PRN (02:12)
[2022-05-24 06:45] LABS: HCT 34.9 % (34.0-46.0); HGB 11.5 gm/dL (11.4-16.0); MCH 29.6 pg (25.0-35.0); MCHC 32.9 g/dL (31.0-37.0); MCV 90.1 fL (80.0-100.0); Mean Platelet Volume 7.6; Platelet Count 269 k/uL (150-450); RBC 3.87 m/uL (3.80-5.40); RDW 12.8 % (11.5-15.5); WBC 4.5 k/uL (3.8-10.6)
[2022-05-24] MEDS: PANTOPRAZOLE 40 MG/10 ML VIAL IVP SCH (07:52)
[2022-05-24] MEDS: LEVOTHYROXINE 75 MCG TAB PO SCH ×2 (07:52→11:53)
--- NOTE | 2022-05-24 07:58 | P.GSCN ---
History of Present Illness Consult date: 05/24/22 History of present illness: CHIEF COMPLAINT: Gastrointestinal bleed HISTORY OF PRESENT ILLNESS: Josefina Bird is a 56-year-old female with, greatest surgical history includingstatus post sleeve gastrectomy to gastric bypass 02/18/2018 including history of perforated gastrojejunal ulcer April 2018 and closure of internal hernias at [facility] 2019. She is on chronic and antacids due to her ulcer history. She was recently evaluated for upper and lower endoscopy 3 weeks ago where a large gastric ulcer was identified. Patient was maintained on Carafate and Protonix. She was recently seen in the bariatric center one to 2 weeks ago. She presents to the hospital with acute onset epigastric abdominal pain for 2-3 days. She also reports new dark stools that started during that timeframe hence her presentation to the emergency room. She had blood positive stools. Her pain was uncontrolled 10 out of 10. General surgery is consulted for gastrointestinal bleed. PAST MEDICAL HISTORY: 1. Obstructive sleep apnea. 2. Gastroesophageal reflux disease. 3. History of hiatal hernia. 4. Carpal tunnel syndrome. 5. Diabetes type 2. 6. Hypothyroidism. 7. Chronic obstructive pulmonary disease. 8. Anxiety. 9. Colon polyps. 10. Sleep apnea. 11. Morbid obesity due to excess calories, BMI 36.8, initial PAST SURGICAL HISTORY: 1. Uterine ablation. 2. Left carpal tunnel release. 3. Bilateral breast reduction. 4. Upper endoscopy. 5. Lower endoscopy. 6. Status post sleeve gastrectomy. 7. Cholecystectomy. 8. Repair of perforated gastrojejunal ulcer at outside institution, Apr 2018 9. Closure of internal hernias, diagnostic laparoscopy at [place], Aug 2019 10. Gastric bypass, February 2018 MEDICATIONS: Reviewed ALLERGIES: Reviewed SOCIAL HISTORY: Former tobacco user. FAMILY HISTORY: Pertinent for morbid obesity in her mother. Also no reports of Crohn's disease or ulcerative colitis. Denies any family history of gastrointestinal cancers. She has a mother who has morbid obesity. REVIEW OF SYSTEMS: CONSTITUTIONAL: Her ideal body weight is 135 pounds for her 5 foot 2 frame. Heighest weight of 201 pounds. Prior BMI 36.8. GASTROINTESTINAL: No reports of dumping syndrome. History of colon polyps. History of ulcers ENDOCRINE: Improved insulin resistance. She is no longer on medications for diabetic control. CARDIOVASCULAR: History of hypertension. No palpitations. RESPIRATORY: History of chronic obstructive pulmonary disease. NEURO: History of migraine headaches. No strokes. HEENT: Denies any troubles with vision or hearing. GENITOURINARY: History of endometrial ablation. 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 PSYCH: History of anxiety and depression. HEMATOLOGIC: Denies any easy bruising and bleeding or prior venous thromboe mbolic event. SKIN: No rash. No skin cancer. PHYSICAL EXAM: VITAL SIGNS: 5 foot 2. Body mass index 23.0 ABDOMEN: Soft and non-distended. Tender epigastrium. MUSCULOSKELETAL: No clubbing, cyanosis, or edema. GENERAL: Well-developed female in no acute distress. HEENT: No sclera icterus. Extraocular movements grossly intact. Moist buccal mucosa. Head is atraumatic, normocephalic. Hears conversational speech. No nasal drainage. NECK: Supple without lymphadenopathy. No JV distention. CHEST: Non-labored respirations and equal bilateral excursions. CARDIOVASCULAR: Regular rate and rhythm. NEUROLOGIC: No focal or lateralizing signs. Cranial nerves II through XII grossly intact. PSYCH: Appropriate affect. Alert and oriented to person, place and time. SKIN: Well-perfused. Good skin turgor. LABS: Reviewed. Hemoglobin down 12.9-11.4. Iron low 29. STUDIES: CT of the abdomen and pelvis independently reviewed without pneumoperitoneum. Incarcerated hiatal hernia identified involving the gastric pouch. This is my independent interpretation. ASSESSMENT: 1. Gastrointestinal bleeding with history of gastric ulcer 2. Body mass index reduced from 36.8 down to 23.0 3. Status post gastric bypass. 4. History of perforated gastrojejunal ulcer 5. Chronic gastric ulcers 6. Iron deficiency anemia PLAN: 1. Patient presents with known history of gastric ulcer. Recent upper and lower endoscopy completed 3 weeks ago. She reports acute onset epigastric pain for 2-3 days since Sunday. She reports dark stools. CT abdomen pelvis negative for pneumoperitoneum with past history of perforated gastric ulcer. Recommend repeat upper endoscopy for Endo Clip of visible gastric vessel. 2. Protonix 40 mg twice a day described. 3. Carafate 1 g 3 times daily described 4. Recommend iron infusion Past Medical History Past Medical History: Chest Pain / Angina, COPD, Eye Disorder, Fibromyalgia, GERD/Reflux, Thyroid Disorder Additional Past Medical History / Comment(s): WAS DIABETIC BEFORE HER BARIATRIC PROCEDURES. Migraines, hiatal hernia, thyroid nodule. Gastrojejunal perforation, pneumoperitoneum History of Any Multi-Drug Resistant Organisms: None Reported Past Surgical History: Bariatric Surgery, Breast Surgery, Cholecystectomy, Uterine Ablation Additional Past Surgical History / Comment(s): EXPLORATORY OF AUGUST 27, HERNIA BOWEL HORVATH SPACE DEFECT @[facility] 08-27-19. 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 Surgery for pneumoperitoneum 04/2018 @ [facility]. Adhesiolysis 09/2018. Colonoscopy with upper endoscopy 2017. Gastric sleeve (03/2016). Past Anesthesia/Blood Transfusion Reactions: Motion Sickness, Postoperative Nausea & Vomiting (PONV) Additional Past Anesthesia/Blood Transfusion Reaction / Comm: Has never received blood Past Psychological History: Anxiety Additional Psychological History / Comment(s): Pt is independant.drives, lives with her son. 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 Smoking Status: Former smoker Past Alcohol Use History: Rare Additional Past Alcohol Use History / Comment(s): started smoking at age 16(1981), smoked 1ppd. quit 2011 Past Drug Use History: None Reported - Past Family History Mother Additional Family Medical History / Comment(s): Emphysema. Maternal great aunt had breast cancer. Father Additional Family Medical History / Comment(s): pilot manager w/ plane crash- age 23. Paternal grandmother had breast cancer. Medications and Allergies Home Medications Medication Instructions Recorded Confirmed Type Albuterol Sulfate [Proair Hfa] 1 - 2 puff INHALATION RT-Q6H PRN 12/20/21 05/23/22 Rx 30 Days #1 each Rimegepant Sulfate [Nurtec Odt] 75 mg PO DAILY PRN 12/20/21 05/23/22 History SUMAtriptan succinate [Imitrex] 100 mg PO DAILY PRN #30 tab 12/20/21 05/23/22 Rx ALPRAZolam [ALPRAZolam XR] 0.5 mg PO BID PRN 04/13/22 05/23/22 History Cyclobenzaprine [Flexeril] 10 mg PO HS PRN 04/13/22 05/23/22 History Levothyroxine Sodium [Synthroid] 37.5 mcg PO QAM 04/13/22 05/23/22 History Lisdexamfetamine Dimesylate 40 mg PO DAILY PRN 04/13/22 05/23/22 History [Vyvanse] Pantoprazole [Protonix] 40 mg PO BID 30 Days #60 tab 04/13/22 05/23/22 Rx Fluticasone/Umeclidin/Vilanter 1 puff INHALATION RT-DAILY 05/02/22 05/23/22 History [Trelegy Ellipta 100-62.5-25] Sucralfate [Carafate] 1 gm PO BID #120 tablet 05/24/22 Rx Allergies Allergy/AdvReac Type Severity Reaction Status Date / Time ibuprofen [From Motrin] AdvReac due to Verified 05/23/22 12:55 ulcers latex AdvReac states Verified 05/23/22 12:55 "feels like chest tightens" scopolamine AdvReac contraindictated Verified 05/23/22 12:55 with glaucoma Surgical - Exam Vital Signs Temp Pulse Resp BP Pulse Ox 97.6 F 88 16 138/85 98 05/23/22 11:04 05/23/22 11:04 05/23/22 11:04 05/23/22 11:04 05/23/22 11:04 Results - Labs 05/24/22 05:36 05/23/22 11:26 Abnormal Lab Results - Last 24 Hours (Table) 05/23/22 05/23/22 05/23/22 Range/Units 11:26 11:26 11:26 Glucose 135 H (74-99) mg/dL Magnesium 1.5 L (1.6-2.3) mg/dL Iron 29 L (50-170) ug/dL % Saturation 6.72 L (12.00-45.00) Vitamin D 25-Hydroxy 27.2 L (30.0-100.0) ng/mL Stool Occult Blood Positive H (Negative) Diabetes panel 05/23/22 Range/Units 11:26 Sodium 140 (137-145) mmol/L Potassium 3.5 (3.5-5.1) mmol/L Chloride 99 (98-107) mmol/L Carbon Dioxide 29 (22-30) mmol/L BUN 13 (7-17) mg/dL Creatinine 0.86 (0.52-1.04) mg/dL Glucose 135 H (74-99) mg/dL Calcium 9.8 (8.4-10.2) mg/dL AST 18 (14-36) U/L ALT 12 (4-34) U/L Alkaline Phosphatase 67 (38-126) U/L Total Protein 7.3 (6.3-8.2) g/dL Albumin 4.7 (3.5-5.0) g/dL Calcium panel 05/23/22 Range/Units 11:26 Calcium 9.8 (8.4-10.2) mg/dL Albumin 4.7 (3.5-5.0) g/dL Pituitary panel 05/23/22 Range/Units 11:26 Sodium 140 (137-145) mmol/L Potassium 3.5 (3.5-5.1) mmol/L Chloride 99 (98-107) mmol/L Carbon Dioxide 29 (22-30) mmol/L BUN 13 (7-17) mg/dL Creatinine 0.86 (0.52-1.04) mg/dL Glucose 135 H (74-99) mg/dL Calcium 9.8 (8.4-10.2) mg/dL Adrenal panel 05/23/22 Range/Units 11:26 Sodium 140 (137-145) mmol/L Potassium 3.5 (3.5-5.1) mmol/L Chloride 99 (98-107) mmol/L Carbon Dioxide 29 (22-30) mmol/L BUN 13 (7-17) mg/dL Creatinine 0.86 (0.52-1.04) mg/dL Glucose 135 H (74-99) mg/dL Calcium 9.8 (8.4-10.2) mg/dL Total Bilirubin 0.5 (0.2-1.3) mg/dL AST 18 (14-36) U/L ALT 12 (4-34) U/L Alkaline Phosphatase 67 (38-126) U/L Total Protein 7.3 (6.3-8.2) g/dL Albumin 4.7 (3.5-5.0) g/dL
[2022-05-24] MEDS ORDERED: SYMBICORT 80-4.5 MCG INHALER INHALATION SCH (08:00)
[2022-05-24] MEDS ORDERED: SODIUM FERRIC GLUCONAT-SUCROSE 125 MG in SODIUM CHLORIDE 0.9% 100 ML IVPB ONE (08:05)
[2022-05-24] MEDS ORDERED: CYANOCOBALAMIN 1,000 MCG/ML 1 ML VIAL IM ONE (08:06)
[2022-05-24] MEDS: IPRATROPIUM 0.5 MG/2.5 ML NEBU INHALATION SCH ×3 (08:26→16:36)
[2022-05-24] MEDS ORDERED: PROCHLORPERAZINE INJ 10 MG/2 ML VIAL IVP PRN (08:52)
[2022-05-24 08:53] VITALS: RESP 16
[2022-05-24] MEDS: SUCRALFATE 1 GM TAB PO SCH (10:33)
[2022-05-24] MEDS ORDERED: IV FLUID CONTINUATION 600 ML IV ONE (10:50)
[2022-05-24] MEDS ORDERED: PROPOFOL 10 MG/ML 20 ML VIAL IV ONE (10:53)
[2022-05-24] MEDS ORDERED: LIDOCAINE 2% INJ 20 MG/ML (2 ML VIAL) ONE (10:53)
[2022-05-24] MEDS ORDERED: SODIUM CHLORIDE 0.9% 1,000 ML IV ONE ×2 (10:59)
--- NOTE | 2022-05-24 11:41 | P.PCN ---
Date of Procedure: 05/24/22 Description of Procedure: PREOPERATIVE DIAGNOSES: 1. Gastrointestinal bleed with history of gastric ulcer 2. Epigastric abdominal pain. 3. Nausea and vomiting. 4. History of gastric bypass. POSTOPERATIVE DIAGNOSES: 1. Gastrojejunal ulcer without active bleeding with partial 2. Nausea and vomiting. 3. History of gastric bypass. 4. History of gastric ulcers. 5. Diaphragmatic hiatal hernia PROCEDURE PERFORMED: Esophagogastrojejunoscopy. SURGEON: Nu Stewart MD ANESTHESIA: MAC. INDICATIONS: The patient is a 56-year-old female with prior history of Albert-en-Y gastric bypass including gastric ulcer. She presented with acute gastrointestinal bleed and epigastric pain. With history of Albert-en-Y gastric bypass, upper endoscopy was offered for further evaluation and management. DESCRIPTION: Patient was brought to the endoscopy suite and laid in the left lateral decubitus position. After adequate IV sedation, a bite block was placed. An Olympus gastroscope was passed along the posterior oropharynx down to the distal esophagus where the squamocolumnar junction was found at approximately 33 cm from the incisors. His anastomosis was found at 40 cm, consistent with approximately 7 cm gastric pouch. The scope was advanced 60 cm from the incisors. No evidence of foreign body was found. Active gastrojejunal ulcerations were encountered. The GI tract was desufflated. The patient tolerated the procedure well. FINDINGS: 1. Acute gastrojejunal ulceration, 4-mm, without active bleeding 2. Diaphragmatic hiatal hernia, 3 cm with incarceration PLAN: 1. May start liquid diet. 2. Protonix 40 mg twice a day and Carafate 3. Recommend revision of gastrojejunal anastomosis with hatal hernia repair which may be done as outpatient
[2022-05-24 14:16] VITALS: BP 121/81; PULSE 80; TEMP 97.4
--- NOTE | 2022-05-24 15:54 | P.DS ---
Providers Date of admission: 05/23/22 12:10 Expected date of discharge: 05/24/22 Attending physician: Joselyn Bah MD Consults: 05/23/22 12:38 Consult Physician Routine Consulting Provider: Nu Stewart Consult Reason/Comments: GIB Do you want consulting provider notified?: Yes, Notify in am [facility] care physician: [facility] Hospital Course: Discharge Diagnosis: Gastrojejunal ulceration without active bleeding Hiatal hernia with incarceration Iron deficiency Vitamin B12 deficiency Hospital Course: Patient is a 56-year-old female with history of acid reflux and recent upper and lower endoscopies on 05/03/22 which showed a large ulcer, COPD, and hypothyroidism who presented to the ER with complaints of dark tarry stools. In the ER she underwent an extensive evaluation. Initial vital signs are within normal limits. Initial laboratory analysis was remarkable for magnesium of 1.5. Hemoglobin was normal at 12.9. Patient was found to be guaiac positive. Dr. Stewart was contacted and agreed to see the patient in consultation. Patient was placed in observation. She was found to have severe iron deficiency anemia despite oral iron supplementation. She was given 1 dose of IV iron. Her B12 level was low normal and she received 1 IM dose of vitamin B12. She underwent EGD which showed a gastrojejunal ulcer without active bleeding and diaphragmatic hiatal hernia. Dr. Stewart recommended resuming liquid diet and discharged home on Protonix and Carafate with outpatient follow-up for revision of her gastrojejunal anastomosis and hiatal hernia repair. Patient tolerated her liquid diet was determined stable for discharge home. Her outpatient Carafate was increased to 4 times daily. Follow-up: Dr. Stewart in 1 week, primary care physician in 2-3 days, she was recommended to have repeat ferritin and B12 levels on an outpatient basis. Patient seen and examined at bedside. Vital signs reviewed and stable. General: nontoxic, no distress, appears at stated age Derm: warm, dry Head: atraumatic, normocephalic, symmetric Eyes: EOMI, no lid lag, anicteric sclera Mouth: no lip lesion, mucus membranes moist Cardiovascular: S1S2 reg, no murmur, positive posterior tibial pulse bilateral, Lungs: CTA bilateral, no rhonchi, no rales , no accessory muscle use Ext: no gross muscle atrophy, no edema, no contractures Neuro: CN II-XI grossly intact, no focal neuro deficits Psych: Alert, oriented, appropriate affect A total of 35 minutes of time were spent preparing this complex discharge summary. Patient was discharged on 05/24/22. Plan - Discharge Summary Discharge Rx Participant: No New Discharge Prescriptions: Continue Rimegepant Sulfate [Nurtec Odt] 75 mg PO DAILY PRN PRN Reason: Migraine Headache SUMAtriptan succinate [Imitrex] 100 mg PO DAILY PRN #30 tab PRN Reason: MIGRAINES Albuterol Sulfate [Proair Hfa] 1 - 2 puff INHALATION RT-Q6H PRN 30 Days #1 each PRN Reason: Shortness Of Breath Cyclobenzaprine [Flexeril] 10 mg PO HS PRN PRN Reason: MUSCLE SPASMS Lisdexamfetamine Dimesylate [Vyvanse] 40 mg PO DAILY PRN PRN Reason: Anxiety Pantoprazole [Protonix] 40 mg PO BID 30 Days #60 tab Levothyroxine Sodium [Synthroid] 37.5 mcg PO QAM ALPRAZolam [ALPRAZolam XR] 0.5 mg PO BID PRN PRN Reason: Anxiety Fluticasone/Umeclidin/Vilanter [Trelegy Ellipta 100-62.5-25] 1 puff INHALATION RT-DAILY Sucralfate [Carafate] 1 gm PO BID #120 tablet Discharge Medication List Albuterol Sulfate [Proair Hfa] 1 - 2 puff INHALATION RT-Q6H PRN 30 Days #1 each 12/20/21 [Rx] Rimegepant Sulfate [Nurtec Odt] 75 mg PO DAILY PRN 12/20/21 [History] SUMAtriptan succinate [Imitrex] 100 mg PO DAILY PRN #30 tab 12/20/21 [Rx] ALPRAZolam [ALPRAZolam XR] 0.5 mg PO BID PRN 04/13/22 [History] Cyclobenzaprine [Flexeril] 10 mg PO HS PRN 04/13/22 [History] Levothyroxine Sodium [Synthroid] 37.5 mcg PO QAM 04/13/22 [History] Lisdexamfetamine Dimesylate [Vyvanse] 40 mg PO DAILY PRN 04/13/22 [History] Pantoprazole [Protonix] 40 mg PO BID 30 Days #60 tab 04/13/22 [Rx] Fluticasone/Umeclidin/Vilanter [Trelegy Ellipta 100-62.5-25] 1 puff INHALATION RT-DAILY 05/02/22 [History] Sucralfate [Carafate] 1 gm PO BID #120 tablet 05/24/22 [Rx] Follow up Appointment(s)/Referral(s): Nu Stewart MD [STAFF PHYSICIAN] - 1 Week Adam Castaneda DO [Primary Care Provider] - 1-2 days Patient Instructions/Handouts: Diet for Stomach Ulcers and Gastritis (GEN) Activity/Diet/Wound Care/Special Instructions: Activity: as tolerated Diet: Soft [place] diet Special Instructions: Recommend repeat iron studies in 6 weeks, B 12 level 236 and recommended continued IM injections, can also try the over the counter oral dissolvable tablets. Discharge Disposition: HOME SELF-CARE
== END 2022-05-24 17:03 | disposition home or self-care (01) ==
LOC: EC 11:02 → 6NMEDSUR 12:10
PROVIDERS: ADMIT Internal Medicine; ATTEND Internal Medicine
DX: K28.3 Acute gastrojejunal ulcer without hemorrhage or perforation (principal); K44.0 Diaphragmatic hernia with obstruction, without gangrene; Z98.0 Intestinal bypass and anastomosis status; K25.4 Chronic or unspecified gastric ulcer with hemorrhage; D50.9 Iron deficiency anemia, unspecified; E53.8 Deficiency of other specified B group vitamins; K21.9 Gastro-esophageal reflux disease without esophagitis; M79.7 Fibromyalgia; M32.9 Systemic lupus erythematosus, unspecified; J44.9 Chronic obstructive pulmonary disease, unspecified; G43.909 Migraine, unspecified, not intractable, without status migrainosus; F41.9 Anxiety disorder, unspecified; G47.33 Obstructive sleep apnea (adult) (pediatric); E11.9 Type 2 diabetes mellitus without complications; G56.02 Carpal tunnel syndrome, left upper limb; E03.9 Hypothyroidism, unspecified; F32.A Depression, unspecified; I10 Essential (primary) hypertension; M16.0 Bilateral primary osteoarthritis of hip; M19.09 Primary osteoarthritis, other specified site; Z87.891 Personal history of nicotine dependence; Z98.84 Bariatric surgery status; Z90.49 Acquired absence of other specified parts of digestive tract; Z79.890 Hormone replacement therapy; Z79.899 Other long term (current) drug therapy; Z88.6 Allergy status to analgesic agent; Z91.040 Latex allergy status; Z82.5 Family history of asthma and other chronic lower respiratory diseases; Z80.3 Family history of malignant neoplasm of breast
CPT/HCPCS: 96365; 96372; 96375 ×3; 96376 ×3; 99285; 36415; 80053; 82607; 82728; 83540; 83550; 83605; 83735; 85025; 85027 ×2; 85610; 85730; 82272; 82306; 74018; 74177; 43235; G0378 ×2; J0780; J3420; J2405 ×2; J2916; J2704; C9113 ×2; J1170 ×2; Q9967; J2001

== ENCOUNTER 2022-06-06 11:07 | Emergency (ER) | payer OTHER ==
[2022-06-06 11:15] VITALS: RESP 18
[2022-06-06 11:44] LABS: Basophils # (A) 0.1 k/uL (0-0.2); Basophils % (A) 1 %; Eosinophils # (A) 0.2 k/uL (0-0.7); Eosinophils % (A) 3 %; HCT 39.8 % (34.0-46.0); HGB 13.3 gm/dL (11.4-16.0); Lymphocytes # (A) 1.4 k/uL (1.0-4.8); Lymphocytes % (A) 24 %; MCH 30.1 pg (25.0-35.0); MCHC 33.4 g/dL (31.0-37.0); Mean Platelet Volume 7.2; Monocytes # (A) 0.3 k/uL (0-1.0); Monocytes % (A) 5 %; Neutrophils # (A) 3.8 k/uL (1.3-7.7); Neutrophils % (A) 66 %; Platelet Count 433 k/uL (150-450); RBC 4.42 m/uL (3.80-5.40); RDW 12.9 % (11.5-15.5); WBC 5.8 k/uL (3.8-10.6)
[2022-06-06 11:58] LABS: ALT 12 U/L (4-34); AST 17 U/L (14-36); African American GFR (CKD) >90 (>60 ml/min/1.73 sqM); Albumin 4.4 g/dL (3.5-5.0); Alkaline Phosphatase 64 U/L (38-126); Amylase 54 U/L (30-110); Anion Gap 14 mmol/L; Blood Urea Nitrogen 6 mg/dL (7-17); Calcium 9.4 mg/dL (8.4-10.2); Carbon Dioxide 26 mmol/L (22-30); Chloride 102 mmol/L (98-107); Glucose 96 mg/dL (74-99); Lipase 93 U/L (23-300); Non-African American GFR(CKD) 84 (>60 ml/min/1.73 sqM); Potassium 3.7 mmol/L (3.5-5.1); Sodium 142 mmol/L (137-145); Total Bilirubin 0.5 mg/dL (0.2-1.3); Total Protein 6.9 g/dL (6.3-8.2)
[2022-06-06] MEDS ORDERED: HYDROmorphone 0.5 MG/0.5 ML SYRINGE IVP STA (12:42)
[2022-06-06] MEDS ORDERED: ONDANSETRON 4 MG/2 ML VIAL IVP STA (12:42)
[2022-06-06 13:32] VITALS: BP 132/89; PULSE 63; TEMP 98.2
--- NOTE | 2022-06-06 13:47 | ED ---
Abdominal Pain HPI - General Chief Complaint: Abdominal Pain Stated Complaint: chest pain, abd pain Time Seen by Provider: 06/06/22 12:00 Source: patient, RN notes reviewed Mode of arrival: ambulatory Limitations: no limitations - History of Present Illness Initial Comments: 56-year-old female presents emergency department to complaint of epigastric pain . Patient had recent hospitalization for hiatal hernia, also. Patient is a recent scope. Patient scheduled to surgery outpatient in the near future. Patient states she's having a flareup. Patient states this exact same pain she had. Her last hospitalization she stayed overnight. She denies any rectal bleeding. Denies any chest pain shortness of breath fevers chills no other associated complaints - Related Data Home Medications Medication Instructions Recorded Confirmed Rimegepant Sulfate [Nurtec Odt] 75 mg PO DAILY PRN 12/20/21 05/31/22 ALPRAZolam [ALPRAZolam XR] 0.5 mg PO BID PRN 04/13/22 05/31/22 Cyclobenzaprine [Flexeril] 10 mg PO HS PRN 04/13/22 05/31/22 Levothyroxine Sodium [Synthroid] 37.5 mcg PO QAM 04/13/22 05/31/22 Lisdexamfetamine Dimesylate 40 mg PO DAILY PRN 04/13/22 05/31/22 [Vyvanse] Fluticasone/Umeclidin/Vilanter 1 puff INHALATION RT-DAILY 05/02/22 05/31/22 [Trelegy Ellipta 100-62.5-25] Sucralfate [Carafate] 1 gm PO QID 05/31/22 05/31/22 Previous Rx's Medication Instructions Recorded Albuterol Sulfate [Proair Hfa] 1 - 2 puff INHALATION RT-Q6H PRN 12/20/21 30 Days #1 each SUMAtriptan succinate [Imitrex] 100 mg PO DAILY PRN #30 tab 12/20/21 Pantoprazole [Protonix] 40 mg PO BID 30 Days #60 tab 04/13/22 Allergies Allergy/AdvReac Type Severity Reaction Status Date / Time ibuprofen [From Motrin] AdvReac due to Verified 06/06/22 11:15 ulcers latex AdvReac states Verified 06/06/22 11:15 "feels like chest tightens" scopolamine AdvReac contraindictated Verified 06/06/22 11:15 with glaucoma Review of Systems ROS Statement: Those systems with pertinent positive or pertinent negative responses have been documented in the HPI. ROS Other: All systems not noted in ROS Statement are negative. Past Medical History Past Medical History: Chest Pain / Angina, COPD, Eye Disorder, Fibromyalgia, GERD/Reflux, Thyroid Disorder Additional Past Medical History / Comment(s): WAS DIABETIC BEFORE HER BARIATRIC PROCEDURES. Migraines, hiatal hernia, thyroid nodule. Gastrojejunal perforation, pneumoperitoneum History of Any Multi-Drug Resistant Organisms: None Reported Past Surgical History: Bariatric Surgery, Breast Surgery, Cholecystectomy, Uterine Ablation Additional Past Surgical History / Comment(s): EXPLORATORY OF AUGUST 27, HERNIA BOWEL HORVATH SPACE DEFECT @[place] 08-27-19. 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 Surgery for pneumoperitoneum 04/2018 @ [facility]. Adhesiolysis 09/2018. Colonoscopy with upper endoscopy 2017. Gastric sleeve (03/2016). Past Anesthesia/Blood Transfusion Reactions: Motion Sickness, Postoperative Nausea & Vomiting (PONV) Additional Past Anesthesia/Blood Transfusion Reaction / Comment(s): Has never received blood Past Psychological History: Anxiety Smoking Status: Former smoker Past Alcohol Use History: Rare Past Drug Use History: None Reported - Past Family History Mother Additional Family Medical History / Comment(s): Emphysema. Maternal great aunt had breast cancer. Father Additional Family Medical History / Comment(s): transport pilot w/ plane crash- age 23. Paternal grandmother had breast cancer. General Exam Limitations: no limitations General appearance: alert, in no apparent distress Head exam: Present: atraumatic, normocephalic, normal inspection Eye exam: Present: normal appearance, PERRL, EOMI. Absent: scleral icterus, conjunctival injection, periorbital swelling Neck exam: Present: normal inspection, full ROM. Absent: tenderness, meningismus, lymphadenopathy Respiratory exam: Present: normal lung sounds bilaterally. Absent: respiratory distress, wheezes, rales, rhonchi, stridor Cardiovascular Exam: Present: regular rate, normal rhythm, normal heart sounds. Absent: systolic murmur, diastolic murmur, rubs, gallop, clicks GI/Abdominal exam: Present: soft, tenderness (Epigastric), normal bowel sounds. Absent: distended, guarding, rebound, rigid Back exam: Absent: CVA tenderness (R), CVA tenderness (L) Neurological exam: Present: alert Skin exam: Present: warm, dry, intact, normal color. Absent: rash Course Vital Signs 06/06/22 06/06/22 06/06/22 11:12 12:13 13:29 Temperature 98.2 F Pulse Rate 76 57 L 63 Respiratory 18 18 18 Rate Blood Pressure 152/78 133/81 132/89 O2 Sat by Pulse 99 98 98 Oximetry Medical Decision Making - Medical Decision Making Patient's prior to reviewed, labs reviewed no significant findings. Patient does have follow-up with Dr. Hernandez. Patient will be discharged to outpatient return parameters were discussed. - Lab Data Result diagrams: 06/06/22 11:35 06/06/22 11:35 Lab Results 06/06/22 06/06/22 06/06/22 Range/Units 11:35 11:35 11:35 WBC 5.8 (3.8-10.6) k/uL RBC 4.42 (3.80-5.40) m/uL Hgb 13.3 (11.4-16.0) gm/dL Hct 39.8 (34.0-46.0) % MCV 90.0 (80.0-100.0) fL MCH 30.1 (25.0-35.0) pg MCHC 33.4 (31.0-37.0) g/dL RDW 12.9 (11.5-15.5) % Plt Count 433 (150-450) k/uL MPV 7.2 Neutrophils % 66 % Lymphocytes % 24 % Monocytes % 5 % Eosinophils % 3 % Basophils % 1 % Neutrophils # 3.8 (1.3-7.7) k/uL Lymphocytes # 1.4 (1.0-4.8) k/uL Monocytes # 0.3 (0-1.0) k/uL Eosinophils # 0.2 (0-0.7) k/uL Basophils # 0.1 (0-0.2) k/uL Sodium 142 (137-145) mmol/L Potassium 3.7 (3.5-5.1) mmol/L Chloride 102 (98-107) mmol/L Carbon Dioxide 26 (22-30) mmol/L Anion Gap 14 mmol/L BUN 6 L (7-17) mg/dL Creatinine 0.79 (0.52-1.04) mg/dL Est GFR (CKD-EPI)AfAm >90 (>60 ml/min/1.73 sqM) Est GFR (CKD-EPI)NonAf 84 (>60 ml/min/1.73 sqM) Glucose 96 (74-99) mg/dL Calcium 9.4 (8.4-10.2) mg/dL Total Bilirubin 0.5 (0.2-1.3) mg/dL AST 17 (14-36) U/L ALT 12 (4-34) U/L Alkaline Phosphatase 64 (38-126) U/L Troponin I <0.012 (0.000-0.034) ng/mL Total Protein 6.9 (6.3-8.2) g/dL Albumin 4.4 (3.5-5.0) g/dL Amylase 54 (30-110) U/L Lipase 93 (23-300) U/L Disposition Clinical Impression: Hiatal hernia, Abdominal pain Disposition: HOME SELF-CARE Condition: Stable Instructions (If sedation given, give patient instructions): Abdominal Pain (ED) Additional Instructions: Please return to the Emergency Department if symptoms worsen or any other concerns. Is patient prescribed a controlled substance at d/c from ED?: No Referrals: Favio Gibbons MD [Primary Care Provider] - 1-2 days Time of Disposition: 13:47
[2022-06-06] MEDS ORDERED: ACET/COD 300 MG/30 MG STARTER PACK 6 TAB BTL PO STA (14:14)
== END 2022-06-06 14:20 | disposition home or self-care (01) ==
LOC: EC 11:07
DX: K44.9 Diaphragmatic hernia without obstruction or gangrene (principal); J45.909 Unspecified asthma, uncomplicated; K21.9 Gastro-esophageal reflux disease without esophagitis; E07.9 Disorder of thyroid, unspecified; Z91.040 Latex allergy status; Z88.6 Allergy status to analgesic agent; Z88.8 Allergy status to other drugs, medicaments and biological substances; Z87.891 Personal history of nicotine dependence; Z79.51 Long term (current) use of inhaled steroids; Z79.890 Hormone replacement therapy
CPT/HCPCS: 36415; 93005; 80053; 82150; 83690; 84484; 85025; 96374; 96375; 99284; J2405; J1170

== ENCOUNTER → 2022-07-05 | Outpatient (CLI) | payer OTHER ==
--- NOTE | 2022-07-05 17:08 | P.BASOAP ---
Subjective Progress Note Date: 07/05/22 She reports dysphagia and chronic iron deficiency. Plan for full hiatal hernia and revision of gastrojejunostomy. Assessment/Plan Plan: Date: Initial Weight: 91.308 kg Initial BMI: Current Weight: Current BMI: Type of Surgery: Total Volume in Band: Previous Volume: Volume Removed: Volume Added: Band Size:
[2022-07-05 17:24] VITALS: BP 169/95; PULSE 64; RESP 16; TEMP 98.1; BMI 23.6
== END ==
LOC: BARWHC3 16:11
PROVIDERS: ATTEND Surgery Plastic and Reconstructive Surgery
DX: E66.01 Morbid (severe) obesity due to excess calories (principal)
CPT/HCPCS: 99211

== ENCOUNTER → 2022-07-19 | Outpatient (CLI) | payer OTHER ==
[2022-07-19 17:16] LABS: INR 0.9 (<1.2); Partial Thromboplastin Time 23.3 sec (22.0-30.0); Prothrombin Time 9.9 sec (9.0-12.0)
[2022-07-19 23:29] LABS: Basophils # (A) 0.04 X 10*3/uL (0.00-0.10); Eosinophils # (A) 0.15 X 10*3/uL (0.04-0.35); Eosinophils % (A) 3.8 %; HCT 37.5 % (37.2-46.3); HGB 11.7 g/dL (12.0-15.0); Immature Grans, Automated 0.3 %; Lymphocytes # (A) 1.72 X 10*3/uL (0.90-5.00); Lymphocytes % (A) 43.1 %; MCH 27.7 pg (27.0-32.0); MCHC 31.2 g/dL (32.0-37.0); MCV 88.9 fL (80.0-97.0); Monocytes # (A) 0.26 X 10*3/uL (0.20-1.00); Monocytes % (A) 6.5 %; NRBC Per 100 WBC 0 /100 WBCS (0.0-0.0); Neutrophils # (A) 1.81 X 10*3/uL (1.80-7.70); Neutrophils % (A) 45.3 %; Platelet Count 296 X 10*3/uL (140-440); RBC 4.22 X 10*6/uL (4.10-5.20); RDW 12.8 % (11.5-14.5); WBC 3.99 X 10*3/uL (4.50-10.00)
[2022-07-20 02:25] LABS: Chol/HDL Ratio 2.51 Ratio; LDL Cholesterol,Calculated 81.5 mg/dL (0.0-131.0); Prealbumin 19.9 mg/dL (18.0-42.0); VLDL Calculation 18.98 mg/dL (5.00-40.00)
[2022-07-20 02:33] LABS: % Iron Saturation 16.05 (12.00-45.00); ALT 11 U/L (8-44); AST 16 U/L (13-35); African American GFR (CKD) 90.3 (60.0-200.0); Albumin 4.3 g/dL (3.8-4.9); Albumin/Globulin Ratio 2.02 (1.60-3.17); Alkaline Phosphatase 65 U/L (41-126); BUN/Creat Ratio 9.23 Ratio (12.00-20.00); Blood Urea Nitrogen 7.7 mg/dL (9.0-27.0); Calcium 9.5 mg/dL (8.7-10.3); Carbon Dioxide 27.5 mmol/L (20.0-27.5); Chloride 105 mmol/L (96-109); Ferritin 20.7 ng/mL (10.0-291.0); Globulin 2.1 g/dL (1.6-3.3); Glucose 111 mg/dL (70-110); Iron 67 ug/dL (50-170); Non-African American GFR(CKD) 77.9 (60.0-200.0); Phosphorus 3.7 mg/dL (2.4-5.1); Sodium 142 mmol/L (135-145); Total Iron Binding Capacity 419 ug/dL (228-460); Total Protein 6.4 g/dL (6.2-8.2)
[2022-07-21 06:23] LABS: Vit B1(Thiamine) 51 ug/L (38-122)
== END | disposition home or self-care (01) ==
LOC: LABPAT 16:13
PROVIDERS: ATTEND Surgery Plastic and Reconstructive Surgery
DX: Z01.812 Encounter for preprocedural laboratory examination (principal); T56.894A Toxic effect of other metals, undetermined, initial encounter; D50.9 Iron deficiency anemia, unspecified; E66.01 Morbid (severe) obesity due to excess calories; K91.2 Postsurgical malabsorption, not elsewhere classified; E44.0 Moderate protein-calorie malnutrition; E45 Retarded development following protein-calorie malnutrition; K74.1 Hepatic sclerosis; N19 Unspecified kidney failure; K50.90 Crohn's disease, unspecified, without complications
CPT/HCPCS: 80053; 80061; 82306; 82525; 82607; 82728; 82746; 83036; 83540; 83550; 83735; 83970; 84100; 84134; 84255; 84425; 84443; 84590; 84630; 85025; 85610; 85730

== ENCOUNTER 2022-07-24 09:00 | Inpatient (IN) | payer OTHER ==
[~2022-07-24 09:00] MED LIST changes: +DEXAMETHASONE SOD PHOSPHATE 4 MG/ML 1 ML VIAL IV ONE; +HYDROmorphone 0.5 MG/0.5 ML SYRINGE IVP PRN; -LACTATED RINGERS 1,000 ML IV SCH; +ONDANSETRON 4 MG/2 ML VIAL IVP ONE
[2022-07-24] MEDS ORDERED: GABAPENTIN 300 MG CAP PO STA (09:19)
[2022-07-24] MEDS ORDERED: ACETAMINOPHEN TAB 500 MG TAB PO STA (09:19)
--- NOTE | 2022-07-24 09:19 | P.GSHP ---
History of Present Illness H&P Date: 07/24/22 CHIEF COMPLAINT: Gastroesophageal reflux disease HISTORY OF PRESENT ILLNESS: Josefina Bird is a 56-year-old female who is status post gastric bypass with recurrent gastroesophageal reflux disease and dysphagia including ulcers. She has history of gastric perforation. Despite medications, she has recurrent reflux. She presents for hiatal hernia repair and possible revision of gastrojejunostomy. Her previous weight was 201 pounds, BMI 36.8. [place] body weight for 5 foot 2 inches is 135 pounds. She has lost over 60 pounds lifetime. Lifetime percent excess weight loss 101 %. Body mass index reduced from 36.8 down to 23.2. PAST MEDICAL HISTORY: 1. Obstructive sleep apnea. 2. Gastroesophageal reflux disease. 3. History of hiatal hernia. 4. Carpal tunnel syndrome. 5. Diabetes type 2. 6. Hypothyroidism. 7. Chronic obstructive pulmonary disease. 8. Anxiety. 9. Colon polyps. 10. Sleep apnea. 11. Morbid obesity due to excess calories, BMI 36.8, initial PAST SURGICAL HISTORY: 1. Uterine ablation. 2. Left carpal tunnel release. 3. Bilateral breast reduction. 4. Upper endoscopy. 5. Lower endoscopy. 6. Status post sleeve gastrectomy. 7. Cholecystectomy. 8. Repair of perforated gastrojejunal ulcer at outside institution, Apr 2018 9. Closure of internal hernias, diagnostic laparoscopy at [facility], Aug 2019 MEDICATIONS: ALLERGIES: SOCIAL HISTORY: Former tobacco user. FAMILY HISTORY: Pertinent for morbid obesity in her mother. Also no reports of Crohn's disease or ulcerative colitis. Denies any family history of gastrointestinal cancers. She has a mother who has morbid obesity. REVIEW OF SYSTEMS: CONSTITUTIONAL: Her ideal body weight is 135 pounds for her 5 foot 2 frame. Heighest weight of 201 pounds. Prior BMI 36.8. GASTROINTESTINAL: No reports of dumping syndrome. History of colon polyps. History of ulcers ENDOCRINE: Improved insulin resistance. She is no longer on medications for diabetic control. CARDIOVASCULAR: History of hypertension. No palpitations. RESPIRATORY: History of chronic obstructive pulmonary disease. NEURO: History of migraine headaches. No strokes. HEENT: Denies any troubles with vision or hearing. GENITOURINARY: History of endometrial ablation. 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 PSYCH: History of anxiety and depression. HEMATOLOGIC: Denies any easy bruising and bleeding or prior venous thromboembolic event. SKIN: No rash. No skin cancer. PHYSICAL EXAM: VITAL SIGNS: 5 foot 2, 147 pounds. Body mass index 26.9 ABDOMEN: Soft and non-distended MUSCULOSKELETAL: No clubbing, cyanosis, or edema. GENERAL: Well-developed female in no acute distress. HEENT: No sclera icterus. Extraocular movements grossly intact. Moist buccal mucosa. Head is atraumatic, normocephalic. Hears conversational speech. No nasal drainage. NECK: Supple without lymphadenopathy. No JV distention. CHEST: Non-labored respirations and equal bilateral excursions. CARDIOVASCULAR: Regular rate and rhythm. NEUROLOGIC: No focal or lateralizing signs. Cranial nerves II through XII grossly intact. PSYCH: Appropriate affect. Alert and oriented to person, place and time. SKIN: Well-perfused. Good skin turgor. STUDIES: CT of the abdomen and pelvis independently reviewed with hiatal hernia present with inflammation, 2021. ASSESSMENT: 1. Diaphragmatic hiatal hernia with stricture 2. Body mass index reduced from 36.8 down to 23.2 3. Status post gastric bypass. 4. History of perforated gastrojejunal ulcer 5. Chronic gastric ulcers. 6. Reactive hypoglycemia 7. Dietary surveillance and counseling 8. Chronic nausea 9. Chronic gastric strictures 10. Chronic gastric ulcers 11. Previous history of morbid obesity due to excess calories PLAN: 1. She has severe gastroesophageal reflux disease despite gastric bypass and recurrent gastric ulcers. Recommend hiatal hernia repair with possible revision of gastrojejunostomy. Robotic-assisted approach described. 2. She is elevated risk for perioperative complications including leaks, stricture, bowel obstruction due to multiple abdominal surgeries. 3. Inpatient hospitalization described. Past Medical History Past Medical History: Chest Pain / Angina, COPD, Eye Disorder, Fibromyalgia, GERD/Reflux, Thyroid Disorder Additional Past Medical History / Comment(s): 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 Migraines, hiatal hernia, thyroid nodule. Gastrojejunal perforation, pneumoperitoneum, generalized arthritis. upper abdominal pain due to hernia History of Any Multi-Drug Resistant Organisms: None Reported Past Surgical History: Bariatric Surgery, Breast Surgery, Cholecystectomy, Uterine Ablation Additional Past Surgical History / Comment(s): EXPLORATORY OF AUGUST 27, HERNIA BOWEL HORVATH SPACE DEFECT @[facility] 08-27-19. 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 Surgery for pneumoperitoneum 04/2018 @ [facility]. Adhesiolysis 09/2018. Colonoscopy with upper endoscopy 2017. Gastric sleeve (03/2016). Past Anesthesia/Blood Transfusion Reactions: Motion Sickness, Postoperative Nausea & Vomiting (PONV) Additional Past Anesthesia/Blood Transfusion Reaction / Comment(s): Has never received blood Smoking Status: Former smoker - Past Family History Mother Additional Family Medical History / Comment(s): Emphysema. Maternal great aunt had breast cancer. Father Additional Family Medical History / Comment(s): steamboat pilot w/ plane crash- age 23. Paternal grandmother had breast cancer. Medications and Allergies Home Medications Medication Instructions Recorded Confirmed Type Albuterol Sulfate [Proair Hfa] 1 - 2 puff INHALATION RT-Q6H PRN 12/20/2107/19 Rx 30 Days #1 each Rimegepant Sulfate [Nurtec Odt] 75 mg PO DAILY PRN 12/20/21 07/19/22 History SUMAtriptan succinate [Imitrex] 100 mg PO DAILY PRN #30 tab 12/20/21 07/19/22 Rx ALPRAZolam [ALPRAZolam XR] 0.5 mg PO BID PRN 04/13/22 07/19/22 History Cyclobenzaprine [Flexeril] 10 mg PO HS PRN 04/13/22 07/19/22 History Levothyroxine Sodium [Synthroid] 37.5 mcg PO HS 04/13/22 07/19/22 History Lisdexamfetamine Dimesylate 40 mg PO DAILY PRN 04/13/22 07/19/22 History [Vyvanse] Pantoprazole [Protonix] 40 mg PO BID 30 Days #60 tab 04/13/22 07/19/22 Rx Fluticasone/Umeclidin/Vilanter 1 puff INHALATION RT-DAILY 05/02/22 07/19/22 History [Trelegy Ellipta 100-62.5-25] Allergies Allergy/AdvReac Type Severity Reaction Status Date / Time ibuprofen [From Motrin] AdvReac due to Verified 07/19/22 14:16 ulcers latex AdvReac states Verified 07/19/22 14:16 "feels like chest tightens" scopolamine AdvReac contraindictated Verified 07/19/22 14:16 with glaucoma
[2022-07-24] MEDS ORDERED: HEPARIN SODIUM,PORCINE/PF 5,000 UNIT/0.5 ML SYRINGE SQ PRN (09:20)
[2022-07-24] MEDS: LACTATED RINGERS 1,000 ML IV SCH (10:54)
[2022-07-24 11:17] LABS: Glucose,Whole Blood 96 mg/dL (70-110)
[2022-07-24] MEDS ORDERED: MIDAZOLAM 2 MG/2 ML VIAL IVP ONE (11:55)
[2022-07-24] MEDS ORDERED: NEOSTIGMINE 1 MG/ML 10 ML VIAL ONE (12:08)
[2022-07-24] MEDS ORDERED: SUCCINYLCHOLINE CHLORIDE 200 MG/10 ML VIAL IV ONE (12:08)
[2022-07-24] MEDS ORDERED: GLYCOPYRROLATE 0.2 MG/ML 2 ML VIAL ONE (12:08)
[2022-07-24] MEDS ORDERED: MIDAZOLAM 2 MG/2 ML VIAL ONE (12:08)
[2022-07-24] MEDS ORDERED: fentaNYL (PF) 50 MCG/ML 2 ML AMP ONE (12:08)
[2022-07-24] MEDS ORDERED: ROCURONIUM 10 MG/ML (5 ML VIAL) IV ONE (12:08)
[2022-07-24] MEDS ORDERED: PHENYLEPHRINE-0.9% NACL SYG 1,000 MCG/10 ML SYRINGE ONE (12:08)
[2022-07-24] MEDS ORDERED: PROPOFOL 10 MG/ML 20 ML VIAL IV ONE (12:08)
[2022-07-24] MEDS ORDERED: BUPIVACAIN-EPI 0.25%-1:200,000 30 ML VIAL SQ ONE ×2 (12:33→13:02)
[2022-07-24] MEDS ORDERED: NALOXONE 0.4 MG/ML 1 ML VIAL IV PRN (14:48)
[2022-07-24] MEDS ORDERED: diphenhydrAMINE 50 MG/ML 1 ML VIAL IVP PRN (15:02)
[2022-07-24] MEDS ORDERED: NON FORMULARY DRUG (Lisdexamfetamine Dimesylate [Vyvanse] 40 MG Capsule) PO PRN (15:04)
[2022-07-24] MEDS ORDERED: NON FORMULARY DRUG (Rimegepant Sulfate [Nurtec Odt] 75 MG Tablet) PO PRN (15:04)
[2022-07-24] MEDS ORDERED: ALPRAZolam 0.5 MG TAB PO PRN (15:04)
[2022-07-24] MEDS ORDERED: ALBUTEROL NEBULIZED 2.5 MG/3 ML INHALATION PRN (15:04)
[2022-07-24] MEDS ORDERED: SUMAtriptan succinate 50 MG TAB PO PRN (15:04)
[2022-07-24] MEDS ORDERED: CYCLOBENZAPRINE 10 MG TAB PO PRN (15:04)
--- NOTE | 2022-07-24 15:16 | P.PN ---
Progress Note - Text Progress Note Date: 07/24/22 Chris Kay updated by telephone at [phone]
[2022-07-24] MEDS: ONDANSETRON 4 MG/2 ML VIAL IVP SCH (15:28)
[2022-07-24] MEDS: HYDROmorphone 1 MG/ML 1 ML SYRINGE IVP PRN ×2 (15:51→20:09)
[2022-07-24] MEDS ORDERED: ALBUTEROL NEBULIZED 2.5 MG/3 ML INHALATION SCH (16:00)
[2022-07-24] MEDS: IPRATROPIUM-ALBUTEROL 3 ML NEB INHALATION SCH ×2 (16:02→20:41)
[2022-07-24] MEDS: SIMETHICONE 40 MG/0.6 ML DROPS 2,000 MG/30 ML BOTTLE PO SCH ×2 (16:37→23:21)
[2022-07-24] MEDS: PANTOPRAZOLE 40 MG TABLET PO SCH (16:37)
[2022-07-24] MEDS: 0.9% NACL WITH KCL 20 MEQ/L 1,000 ML IV SCH (16:38)
[2022-07-24] MEDS ORDERED: TRIMETHOBENZAMIDE 100 MG/ML 2 ML VIAL IM STA (17:28)
[2022-07-24] MEDS ORDERED: DEXAMETHASONE SOD PHOSPHATE 10 MG/ML 1 ML VIAL IVP STA (17:28)
[2022-07-24] MEDS ORDERED: SODIUM CHLORIDE 0.9% 1,000 ML IV ONE (17:29)
[2022-07-24] MEDS: ACETAMINOPHEN IV (For NPO) 1,000 MG in EMPTY BAG 1 BAG IVPB SCH (18:05)
[2022-07-24] MEDS ORDERED: ONDANSETRON 4 MG/2 ML VIAL IVP STA (20:08)
[2022-07-24] MEDS: SYMBICORT 80-4.5 MCG INHALER INHALATION SCH (20:41)
[2022-07-24] MEDS ORDERED: LEVOTHYROXINE 75 MCG TAB PO SCH (21:00)
[2022-07-25] MEDS: ACETAMINOPHEN IV (For NPO) 1,000 MG in EMPTY BAG 1 BAG IVPB SCH ×3 (01:10→12:00)
[2022-07-25] MEDS: ONDANSETRON 4 MG/2 ML VIAL IVP SCH ×3 (01:29→12:00)
[2022-07-25] MEDS: 0.9% NACL WITH KCL 20 MEQ/L 1,000 ML IV SCH (06:36)
[2022-07-25] MEDS: HYDROmorphone 1 MG/ML 1 ML SYRINGE IVP PRN (06:36)
[2022-07-25] MEDS: SIMETHICONE 40 MG/0.6 ML DROPS 2,000 MG/30 ML BOTTLE PO SCH ×2 (06:58→11:59)
[2022-07-25] MEDS: PANTOPRAZOLE 40 MG TABLET PO SCH (06:58)
[2022-07-25 07:02] LABS: Basophils % (A) 0 %; Eosinophils % (A) 0 %; HCT 37.7 % (34.0-46.0); HGB 12.2 gm/dL (11.4-16.0); Hypochromasia Slight; Lymphocytes # (A) 0.8 k/uL (1.0-4.8); Lymphocytes % (A) 9 %; MCHC 32.3 g/dL (31.0-37.0); MCV 89.8 fL (80.0-100.0); Mean Platelet Volume 7.4; Monocytes # (A) 0.3 k/uL (0-1.0); Monocytes % (A) 4 %; Neutrophils # (A) 7.2 k/uL (1.3-7.7); Neutrophils % (A) 86 %; Platelet Count 280 k/uL (150-450); RDW 12.3 % (11.5-15.5); WBC 8.3 k/uL (3.8-10.6)
[2022-07-25 07:10] LABS: African American GFR (CKD) >90 (>60 ml/min/1.73 sqM); Anion Gap 9 mmol/L; Blood Urea Nitrogen 9 mg/dL (7-17); Calcium 8.6 mg/dL (8.4-10.2); Carbon Dioxide 26 mmol/L (22-30); Chloride 105 mmol/L (98-107); Magnesium 1.7 mg/dL (1.6-2.3); Non-African American GFR(CKD) >90 (>60 ml/min/1.73 sqM); Potassium 4.6 mmol/L (3.5-5.1); Sodium 140 mmol/L (137-145)
[2022-07-25] MEDS: LACTATED RINGERS 1,000 ML IV SCH (07:42)
[2022-07-25] MEDS: SYMBICORT 80-4.5 MCG INHALER INHALATION SCH (07:56)
[2022-07-25] MEDS: IPRATROPIUM-ALBUTEROL 3 ML NEB INHALATION SCH ×3 (07:58→16:00)
[2022-07-25] MEDS ORDERED: 0.9% NACL WITH KCL 20 MEQ/L 1,000 ML IV SCH (08:00)
[2022-07-25] MEDS ORDERED: IPRATROPIUM 0.5 MG/2.5 ML NEBU INHALATION SCH (08:00)
[2022-07-25] MEDS ORDERED: ENOXAPARIN 30 MG/0.3 ML SYRINGE SQ SCH (09:00)
[2022-07-25] MEDS ORDERED: ENOXAPARIN 40 MG/0.4 ML SYRINGE SQ SCH (09:00)
[2022-07-25] MEDS ORDERED: PANTOPRAZOLE 40 MG/10 ML VIAL IV SCH (09:00)
[2022-07-25] MEDS ORDERED: TRIMETHOBENZAMIDE 100 MG/ML 2 ML VIAL IM PRN (09:48)
[2022-07-25] MEDS ORDERED: MAGNESIUM SULFATE-D5W PMX 1 GM in DEXTROSE/WATER 1 100ML.BAG IVPB ONE (09:48)
--- NOTE | 2022-07-25 11:08 | FL ---
EXAMINATION TYPE: FL UGI DATE OF EXAM: 07/25/2022 COMPARISON: CT abdomen pelvis 05/23/2022 HISTORY: Postop hiatal hernia repair. History of gastric sleeve and Albert-en-Y. TECHNIQUE: A renal contrast UGI study is performed. A total of 6 seconds of fluoroscopic time was u tilized during procedure and 130 images obtained. FINDINGS: The esophagus shows normal motility and emptying into the stomach. Postsurgical changes from hiatal h ernia repair. No evidence for leak. Tertiary contractions involving the distal esophagus. Contrast is demonstrated extending into the Albert limb. IMPRESSION: Postsurgical changes from hiatal hernia repair without evidence for leak or obstruction.
[2022-07-25] MEDS: MAGNESIUM SULFATE-D5W PMX 1 GM in DEXTROSE/WATER 1 100ML.BAG IVPB SCH ×2 (11:15)
--- NOTE | 2022-07-25 13:22 | P.OP ---
Date of Procedure: 07/24/22 Description of Procedure: SURGEON: SENG BHATIA MD PREOPERATIVE DIAGNOSES: 1. Symptomatic paraesophageal diaphragmatic hiatal hernia. 2. Gastroesophageal reflux disease. POSTOPERATIVE DIAGNOSES: 1. Paraesophageal midline diaphragmatic hernia, 5 cm, with incarceration. 2. Gastroesophageal reflux disease. 3. Gastric stenosis OPERATION: 1. Robotic-assisted da Sunday Xi laparoscopic repair of incarcerated paraesophageal hiatal hernia, 5 x 4 cm, with [place] Biopatch A 8 x 8 cm. 2. Intraoperative esophagogastroduodenoscopy 3. Ballo dilation of gastric stenosis, 20-mm ANESTHESIA: General with local anesthetic. ESTIMATED BLOOD LOSS: 5 mL SPECIMENS REMOVED: None COMPLICATIONS: None. Condition: stable Disposition: floor FINDINGS: 1. Midline incarcerated paraesophageal hiatal hernia 5 x 4 cm 2. Moderate adhesions upper abdomen 3. Intra-abdominal sophageal length over 3 cm INDICATIONS: The patient is a 56-year-old female who presents with gastroesophageal reflux disease poorly controlled despite medications, and a symptomatic diaphragmatic hiatal hernia. Preoperative workup including upper endoscopy demonstrated a sliding hiatal hernia. The patient completed an esophageal manometry. Given the severity of symptoms, the patient had elected for surgical intervention. Benefits and risks including bleeding, infection, recurrence, dysphagia, injury to the lung, need for further surgery was described at length. Informed consent was obtained. DESCRIPTION: The patient was brought into the operating room and placed in supine position. Preoperatively the patient had received heparin subcutaneously for DVT prophylaxis. After general induction, the abdomen was prepped and draped in standard sterile fashion. The patient had previously voided prior to coming to the operating room. [place]an draping was placed along the abdomen. A timeout protocol was confirmed with the surgical team, for which the patient's name, procedure to be performed including DVT prophylaxis with bilateral SCDs, and preoperative antibiotics were also confirmed. A robotic da Sunday Xi system was prepped and primed. At 12 cm from the xiphoid to just below the umbilicus, proposed port sites were marked with indelible marker along the left axillary line, left mid-clavicular line with each ports were marked 10 cm from each other. A 5 mm 0 degrees laparoscopic trocar entry was performed along the left upper quadrant. The abdomen was insufflated to 15 mmHg pressure was tolerated well. Diagnostic laparoscopy demonstrated no injury to bowel, viscera, or mesentery. No injury had occurred to the small bowel or viscera. The liver was smooth consistent with two-week high-protein low-carb diet. Previous trochar sites from cholecystectomy were used. Next, one 8 mm robotic port was placed along the right upper abdomen. An 8-mm port was were placed along the right lateral lateral abdominal wall. The camera 8-mm port was maintained along the epigastrium. Another 12 mm port was placed along the left upper abdominal wall after exchanging the 5 mm port. Please note that the ports were placed at least 20 cm away from the target anatomy. Care was taken to check that each robotic arm were safely away from collision with the bed or the patient. At the epigastrium, a medium sized Diaz liver retractor was placed under direct visualization with the Iron Handkerchief Sample Clerk placed under the right shoulder of the patient. All robotic arms were used. The patient was repositioned in reverse Trendelenburg position at 21-degrees after lowering the bed. The robot was docked above the right side of the patient. Using a grasper for arm 3, a grasper for arm 1, including vessel sealer for arm 2, the robotic system was docked and primed as described. Instruments were interchanged by the ex assistant/program director. I had sat at the console. The gastrohepatic ligament was cleaved using a vessel sealer. Next, the phrenoesophageal ligament was mobilized and the distal esophagus was mobilized circumferentially. The left and right crura was identified. Circumferentially, the hernia sac was excised and brought into the peritoneal cavity. Moderate dissection into the mediastinum was performed to release the esophagus into the abdominal cavity. The paraesophageal hiatal hernia sac was also incised and divided from the esophagus. Care was taken to avoid any gastrotomy. The measured defect was consistent with 3 cm axial length and 3 cm in width. After dissection, the distal esophagus of 2+ cm was brought into the abdominal cavity. Once the hiatus and crura was dissected, 2-0 VLOC nonabsorbable suture was placed to reapproximate the diaphragmatic hiatus posteriorly. To buttress the repair, a [place] Biopatch A was prepared along the back table and cut in half of a arrieta-hole fashion as to reinforce the repair as an underlay. The mesh was placed along the crural repair and tagged using horizontal mattress sutures using 2-0 VLOC. I went to the head of the bed to perform intraoperative esophagogastroduodenoscopy and placement of a 56Fr bougie. The bougie was passed along the posterior oropharynx into the stomach to address pre-existing esophageal dysmotility for 2 minutes then removed. An Olympus gastroscope was passed through posterior oropharynx. Retroflexion of the scope confirmed a Hill grade 1 lower esophageal valve. 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 The stomach had been desufflated. No evidence of leaks were found of the esophagus or stomach. The GI tract with desufflated This concluded the endoscopic portion of the case. The robot was undocked from the patient. I re-scrubbed into the case. All instruments and pneumoperitoneum and specimens were evacuated from the abdominal cavity. Incisions were reapproximated using 4-0 Monocryl in an interrupted subcuticular fashion. Liquid glue was applied to the skin. Local anesthetic was infiltrated in all wounds for postop analgesia. At the end of the procedure, needle, sponge, and instrument count was verified correct by the surgical instrument mechanic. The patient had tolerated the procedure well and was taken to the postanesthesia unit in stable condition.
[2022-07-25 13:43] VITALS: BMI 24.0
[2022-07-25 15:05] VITALS: BP 146/79; PULSE 69; RESP 16; TEMP 98.9
--- NOTE | 2022-07-25 15:05 | P.DS ---
Providers Date of admission: 07/24/22 10:31 Expected date of discharge: 07/25/22 Attending physician: Nu Stewart Primary care physician: Adam Castaneda [facility] Course: Discharge diagnosis 1. Paraesophageal midline diaphragmatic hernia, 5 cm, with incarceration. 2. Gastroesophageal reflux disease. 3. Gastric stenosis 4. Hypomagnesemia status post supplement replacement Hospital course The patient is a 56-year-old female who presents with gastroesophageal reflux disease poorly controlled despite medications,and a symptomatic diaphragmatic hiatal hernia. Preoperative workup includingupper endoscopy demonstrated a sliding hiatal hernia. Patient is status post Robotic-assisted da Sunday Xi laparoscopic repair of incarcerated paraesophageal hiatal hernia, 5 x 4 cm, with [place] Biopatch A 8 x 8 cm, Intraoperative esophagogastroduodenoscopy and Balloon dilation of gastric stenosis. Patient tolerated surgery well. Upper GI shows no evidence of leak or obstruction. Patient tolerating diet. Her pain is controlled. She is afebrile. She has been up and ambulating. She denies any difficulty urinating. She is having flatus. She is stable for discharge. Physician Supervisor Instrument Mechanics note has been reviewed by physician. Signing provider agrees with the documented findings, assessment, and plan of care. Patient Condition at Discharge: Stable Plan - Discharge Summary Discharge Rx Participant: Yes New Discharge Prescriptions: New bisacodyL [Dulcolax] 5 mg PO DAILY PRN #10 tab PRN Reason: Constipation Acetaminophen Tab [Tylenol] 1,000 mg PO Q6HR PRN #30 tablet PRN Reason: Pain Simethicone 40 mg/0.6 ml Drops [Mylicon Drops] 40 mg PO PCHS PRN #30 ml PRN Reason: Gas Ondansetron Odt [Zofran Odt] 4 mg PO Q8HR PRN #9 tab PRN Reason: Nausea Continue Rimegepant Sulfate [Nurtec Odt] 75 mg PO DAILY PRN PRN Reason: Migraine Headache SUMAtriptan succinate [Imitrex] 100 mg PO DAILY PRN #30 tab PRN Reason: MIGRAINES Albuterol Sulfate [Proair Hfa] 1 - 2 puff INHALATION RT-Q6H PRN 30 Days #1 each PRN Reason: Shortness Of Breath Cyclobenzaprine [Flexeril] 10 mg PO HS PRN PRN Reason: MUSCLE SPASMS Lisdexamfetamine Dimesylate [Vyvanse] 40 mg PO DAILY PRN PRN Reason: ADHD Pantoprazole [Protonix] 40 mg PO BID 30 Days #60 tab Levothyroxine Sodium [Synthroid] 37.5 mcg PO HS ALPRAZolam [ALPRAZolam XR] 0.5 mg PO BID PRN PRN Reason: Anxiety Fluticasone/Umeclidin/Vilanter [Trelegy Ellipta 100-62.5-25] 1 puff INHALATION RT-DAILY Discharge Medication List Albuterol Sulfate [Proair Hfa] 1 - 2 puff INHALATION RT-Q6H PRN 30 Days #1 each 12/20/21 [Rx] Rimegepant Sulfate [Nurtec Odt] 75 mg PO DAILY PRN 12/20/21 [History] SUMAtriptan succinate [Imitrex] 100 mg PO DAILY PRN #30 tab 12/20/21 [Rx] ALPRAZolam [ALPRAZolam XR] 0.5 mg PO BID PRN 04/13/22 [History] Cyclobenzaprine [Flexeril] 10 mg PO HS PRN 04/13/22 [History] Levothyroxine Sodium [Synthroid] 37.5 mcg PO HS 04/13/22 [History] Lisdexamfetamine Dimesylate [Vyvanse] 40 mg PO DAILY PRN 04/13/22 [History] Pantoprazole [Protonix] 40 mg PO BID 30 Days #60 tab 04/13/22 [Rx] Fluticasone/Umeclidin/Vilanter [Trelegy Ellipta 100-62.5-25] 1 puff INHALATION RT-DAILY 05/02/22 [History] Acetaminophen Tab [Tylenol] 1,000 mg PO Q6HR PRN #30 tablet 07/25/22 [Rx] Ondansetron Odt [Zofran Odt] 4 mg PO Q8HR PRN #9 tab 07/25/22 [Rx] Simethicone 40 mg/0.6 ml Drops [Mylicon Drops] 40 mg PO PCHS PRN #30 ml 07/25/22 [Rx] bisacodyL [Dulcolax] 5 mg PO DAILY PRN #10 tab 07/25/22 [Rx] Follow up [facility]ment(s[facility]Ref[facility] [place] [facility] [place] [facility]22 9:00 am Activity/Diet/Wound Care/Special Instructions: Wear abdominal binder at all times for comfort. No lifting over 4 pounds in 4 weeks You May shower. No bath tub soaks for two weeks Use Tylenol scheduled for the next 24-48 hours for best pain relief. Use ice along incisions for the today to prevent swelling. No straws or carbonated beverages Follow the Bariatric diet plan Please notify your surgeon if you develop nausea and vomiting including new onset of abdominal pain. Continue to use incentive spirometry to prevent pneumonias. Please continue to ambulate at home to prevent blood clots in legs. Discharge Disposition: HOME SELF-CARE
== END 2022-07-25 16:06 | disposition home or self-care (01) | DRG 328 ==
LOC: 2ORMAIN 10:31 → 4SSUR 14:32
PROVIDERS: ADMIT Surgery Plastic and Reconstructive Surgery; ATTEND Surgery Plastic and Reconstructive Surgery
PROC: 0BUT4JZ Supplement Diaphragm with Synthetic Substitute, Percutaneous Endoscopic Approach (ICD-10-PCS; principal; 2022-07-24 11:55)
PROC: 0D768ZZ Dilation of Stomach, Via Natural or Artificial Opening Endoscopic (ICD-10-PCS; principal; 2022-07-24 11:55)
PROC: 8E0W4CZ Robotic Assisted Procedure of Trunk Region, Percutaneous Endoscopic Approach (ICD-10-PCS; principal; 2022-07-24 11:55)
PROC: 0DJ08ZZ Inspection of Upper Intestinal Tract, Via Natural or Artificial Opening Endoscopic (ICD-10-PCS; principal; 2022-07-24 11:55)
DX: K44.0 Diaphragmatic hernia with obstruction, without gangrene (principal); E03.9 Hypothyroidism, unspecified; E11.9 Type 2 diabetes mellitus without complications; E16.1 Other hypoglycemia; E83.42 Hypomagnesemia; J44.9 Chronic obstructive pulmonary disease, unspecified; K21.9 Gastro-esophageal reflux disease without esophagitis; K22.4 Dyskinesia of esophagus; K25.7 Chronic gastric ulcer without hemorrhage or perforation; K66.0 Peritoneal adhesions (postprocedural) (postinfection); M13.0 Polyarthritis, unspecified; M79.7 Fibromyalgia; Z79.899 Other long term (current) drug therapy; Z86.010 Personal history of colon polyps; Z98.84 Bariatric surgery status; Z87.11 Personal history of peptic ulcer disease; Z87.891 Personal history of nicotine dependence; Z71.3 Dietary counseling and surveillance; Z28.21 Immunization not carried out because of patient refusal; Z28.311 Partially vaccinated for COVID-19
CPT/HCPCS: 74240; 80051; 82310; 82565; 83735; 84100; 84520; 85025; 86850; 86900; 86901; 94640; 94760

== ENCOUNTER → 2022-08-09 | Outpatient (CLI) | payer OTHER ==
[2022-08-09 14:03] VITALS: BP 145/92; PULSE 66; TEMP 98.1; BMI 23.8
--- NOTE | 2022-08-09 14:48 | P.BASOAP ---
Subjective Progress Note Date: 08/09/22 No vomiting. She has reflux now. No more nausea. But has reflux. Recommend increase protonix. Cannot tolerate antinausea medications. She reports itching. Recommend triamcinolone cream. Recommend esophagram for possible recurrence. She has severe constipation and rash with prescriptions sent. Objective - Vital Signs Vital signs: Vital Signs Temp 98.1 F 08/09/22 14:00 Pulse 66 08/09/22 14:00 Resp BP 145/92 08/09/22 14:00 Pulse Ox FiO2 Intake & Output 08/08/22 08/09/22 08/09/22 18:59 06:59 18:59 Weight 58.967 kg Assessment/Plan Plan: Date: 08/09/22 Initial Weight: 91.308 kg Initial BMI: 36.8 Current Weight: 58.967 kg Current BMI: 23.8 Type of Surgery: Total Volume in Band: Previous Volume: Volume Removed: Volume Added: Band Size:
== END ==
LOC: BARWHC3 13:39
PROVIDERS: ATTEND Surgery Plastic and Reconstructive Surgery
DX: E66.01 Morbid (severe) obesity due to excess calories (principal); Z68.23 Body mass index [BMI] 23.0-23.9, adult; Z91.040 Latex allergy status; Z88.5 Allergy status to narcotic agent; Z88.6 Allergy status to analgesic agent; Z88.8 Allergy status to other drugs, medicaments and biological substances; Z87.891 Personal history of nicotine dependence
CPT/HCPCS: 99211

== ENCOUNTER → 2022-08-16 | Outpatient (CLI) | payer OTHER ==
--- NOTE | 2022-08-16 11:32 | FL ---
EXAMINATION TYPE: FL barium swallow DATE OF EXAM: 08/16/2022 10:40 AM COMPARISON: CT 05/23/2022 CLINICAL INDICATION:Female, 56 years old with history of R13.10 Dysphagia; TECHNIQUE: The procedure was explained and patient history elicited. All patient questions were ans wered prior to start of procedure. Multiple spot fluoroscopic images of the esophagus were obtained a fter the oral ingestion of effervescent crystals and liquid barium as the contrast agent. Fluoroscopic time: 29 seconds Fluoroscopic images:0 Radiographs taken: 199 FINDINGS: Stable postsurgical appearance of the gastroesophageal junction when comparing to prior on 07/25/2022. There is somewhat delayed emptying of the distal esophagus into the stomach. The esophageal mucosa is smooth without evidence of focal stricture, ulceration. No gastroesophageal reflux disease was ident ified. IMPRESSION: 1. Similar postsurgical changes from hiatal hernia repair without evidence for leak. There is simila r mild delay in emptying of the distal esophagus into the stomach.
== END | disposition home or self-care (01) ==
LOC: RADUSWWP 09:55
PROVIDERS: ATTEND Surgery Plastic and Reconstructive Surgery
DX: R13.10 Dysphagia, unspecified (principal)
CPT/HCPCS: 74220

== ENCOUNTER 2023-02-05 09:29 | Inpatient (IN) | payer OTHER ==
[2023-02-05] MEDS ORDERED: SODIUM CHLORIDE 0.9% 1,000 ML IV ONE (09:58)
[2023-02-05] MEDS ORDERED: HYDROmorphone 1 MG/ML 1 ML SYRINGE IVP STA (09:58)
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
[2023-02-05 10:17] LABS: Basophils % (A) 1 %; Eosinophils # (A) 0.1 k/uL (0-0.7); Eosinophils % (A) 3 %; HCT 40.5 % (34.0-46.0); HGB 13.1 gm/dL (11.4-16.0); Lymphocytes % (A) 39 %; MCH 28.5 pg (25.0-35.0); MCHC 32.4 g/dL (31.0-37.0); MCV 88.1 fL (80.0-100.0); Mean Platelet Volume 7.2; Monocytes # (A) 0.3 k/uL (0-1.0); Monocytes % (A) 6 %; Neutrophils # (A) 2.5 k/uL (1.3-7.7); Neutrophils % (A) 50 %; Platelet Count 394 k/uL (150-450); RDW 13.3 % (11.5-15.5)
--- NOTE | 2023-02-05 10:21 | XR ---
EXAMINATION TYPE: XR chest 1V portable DATE OF EXAM: 02/05/2023 HISTORY: Shortness of breath. COMPARISON: 12/20/2021 TECHNIQUE: Single view of the chest is submitted. FINDINGS: Demonstrated are scattered senescent parenchymal change. There is no evidence for focal infiltrate. The heart is stable. Hilar and mediastinal structures are within normal limits. Degenerative changes are seen of the dorsal spine. IMPRESSION: 1. Chronic changes without evidence for acute pulmonary disease.
[2023-02-05 10:26] LABS: ALT 13 U/L (4-34); AST 20 U/L (14-36); African American GFR (CKD) >90 (>60 ml/min/1.73 sqM); Albumin 4.2 g/dL (3.5-5.0); Alkaline Phosphatase 68 U/L (38-126); Amylase 57 U/L (30-110); Anion Gap 9 mmol/L; Blood Urea Nitrogen 10 mg/dL (7-17); Calcium 9.2 mg/dL (8.4-10.2); Carbon Dioxide 26 mmol/L (22-30); Chloride 104 mmol/L (98-107); Glucose 134 mg/dL (74-99); Lipase 67 U/L (23-300); Non-African American GFR(CKD) 81 (>60 ml/min/1.73 sqM); Potassium 3.5 mmol/L (3.5-5.1); Sodium 139 mmol/L (137-145); Total Bilirubin 0.7 mg/dL (0.2-1.3); Total Protein 6.9 g/dL (6.3-8.2)
[2023-02-05 10:33] LABS: INR 0.9 (<1.2); Prothrombin Time 9.8 sec (9.0-12.0)
[2023-02-05] MEDS ORDERED: PIPERACILLIN-TAZOBACTAM 3.375 GM in SODIUM CHLORIDE 0.9% 100 ML IVPB STA (11:13)
--- NOTE | 2023-02-05 11:16 | CT ---
EXAMINATION TYPE: CT abdomen pelvis w con DATE OF EXAM: 02/05/2023 COMPARISON: 05/23/2020 HISTORY: Severe abdominal pain. Hx bariatric sx CT DLP: 672.6 mGycm CONTRAST: CT scan of the abdomen and pelvis is performed without Oral Contrast and with IV Contrast, patient in jected with 100 mL of Isovue 300. FINDINGS: LUNG BASES-: No visible nodule. No infiltrate. LIVER/GB: The gallbladder is surgically absent. No space occupying hepatic lesion. Biliary tree is of normal caliber. PANCREAS: No inflammation. No distinct mass. SPLEEN: No splenic enlargement. No lesion seen. ADRENALS: No nodule. No thickening. KIDNEYS/BLADDER: No hydronephrosis. No nephrolithiasis. No distinct renal mass. Urinary bladder g rossly unremarkable. BOWEL: There is evidence of pneumoperitoneum within the upper abdomen. There is mild stranding at the level of the patient's gastric bypass procedure. This could reflect the site of the perforation. Sma ll bowel anastomotic changes are present as well. Distal small bowel loops demonstrate mild wall thic kening which could be related to poor distention. Mild wall thickening proximal ascending colon is no nspecific. No surrounding inflammatory change seen and could be related to spasm. GENITAL ORGANS: No gross abnormality. LYMPH NODES: No greater than 1cm abdominal or pelvic lymph nodes are appreciated. AORTA: No significant abnormality. OSSEOUS STRUCTURES: No significant abnormality is seen. OTHER: There is free fluid within the pelvis. IMPRESSION: 1. There is pneumoperitoneum within the upper abdomen. Site of perforation is difficult to elucidate however may reflect the gastric region as there is mild strandiness noted. There is evidence of prior gastric bypass procedure. Correlate clinically. 2. Mild nonspecific wall thickening of proximal descending colon and distal small bowel could be rela melissa to poor distention.
[2023-02-05] MEDS ORDERED: PANTOPRAZOLE 40 MG/10 ML VIAL IVP STA (11:18)
[2023-02-05] MEDS ORDERED: HYDROmorphone 0.5 MG/0.5 ML SYRINGE IVP PRN (11:31)
[2023-02-05] MEDS ORDERED: NALOXONE 0.4 MG/ML 1 ML VIAL IV PRN ×2 (11:31→19:30)
[2023-02-05] MEDS: ONDANSETRON 4 MG/2 ML VIAL IVP PRN (12:30)
[2023-02-05] MEDS: SODIUM CHLORIDE 0.9% 1,000 ML IV SCH (13:12)
[2023-02-05 14:08] LABS: Appearance,Urine Cloudy (Clear); Bilirubin,Urine Negative (Negative); Blood,Urine Trace (Negative); Color,Urine Light Yellow; Glucose,Urine (UA) Negative (Negative); Ketones,Urine Negative (Negative); Leukocyte Esterase,Urine Large (Negative); Mucus,Urine Rare /hpf; Nitrite,Urine Negative (Negative); Protein,Urine Trace (Negative); RBC,Urine 6 /hpf (0-5); Squamous Epithelial Cell,Urine 56 /hpf (0-4); Urobilinogen,Urine <2.0 mg/dL (<2.0); WBC,Urine 4 /hpf (0-5)
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
[2023-02-05 14:27] LABS: Specific Gravity,Urine >1.050 (1.001-1.035)
[2023-02-05] MEDS: HYDROmorphone 1 MG/ML 1 ML SYRINGE IVP PRN (15:15)
[2023-02-05] MEDS: HEPARIN SODIUM,PORCINE/PF 5,000 UNIT/0.5 ML SYRINGE SQ SCH (17:23)
[2023-02-05] MEDS ORDERED: NEOSTIGMINE 1 MG/ML 10 ML VIAL ONE (17:35)
[2023-02-05] MEDS ORDERED: fentaNYL (PF) 50 MCG/ML 2 ML AMP ONE (17:35)
[2023-02-05] MEDS ORDERED: HEPARIN SODIUM,PORCINE 5,000 UNIT/ML 1 ML VIAL ONE (17:35)
[2023-02-05] MEDS ORDERED: GLYCOPYRROLATE 0.2 MG/ML 2 ML VIAL ONE (17:35)
[2023-02-05] MEDS ORDERED: ROCURONIUM 10 MG/ML (5 ML VIAL) IV ONE (17:35)
[2023-02-05] MEDS ORDERED: MIDAZOLAM 2 MG/2 ML VIAL ONE (17:35)
[2023-02-05] MEDS ORDERED: PROPOFOL 10 MG/ML 20 ML VIAL IV ONE (17:35)
[2023-02-05] MEDS ORDERED: LIDOCAINE 2% INJ 20 MG/ML (2 ML VIAL) ONE (17:35)
[2023-02-05] MEDS ORDERED: SUCCINYLCHOLINE CHLORIDE 200 MG/10 ML VIAL IV ONE (17:35)
[2023-02-05] MEDS ORDERED: PHENYLEPHRINE-0.9% NACL SYG 1,000 MCG/10 ML SYRINGE ONE (17:35)
[2023-02-05] MEDS ORDERED: LACTATED RINGERS 1,000 ML IV ONE (17:39)
--- NOTE | 2023-02-05 17:44 | P.PN ---
Progress Note - Text Progress Note Date: 02/05/23 Patient previously known for prior gastric ulcer perforation over 5+ years ago done at outside institution. She reports acute onset sharp bilateral shoulder pain similar to prior event of ruptured gastric pouch. CT of the abdomen and pelvis independently reviewed demonstrates free air at the epigastrium about the gastric pouch. Urgent exploration with repair of gastrojejunal perforation described.
[2023-02-05] MEDS ORDERED: LIDOCAINE 1%/EPI 1:200,000 MPF 10 ML VIAL SQ ONE (18:05)
[2023-02-05] MEDS ORDERED: diphenhydrAMINE 50 MG/ML 1 ML VIAL IVP PRN (19:27)
[2023-02-05] MEDS ORDERED: SUMAtriptan succinate 50 MG TAB PO PRN (19:31)
--- NOTE | 2023-02-05 19:44 | P.OP ---
Date of Procedure: 02/05/23 Description of Procedure: SURGEON: SENG BHATIA MD PREOPERATIVE DIAGNOSES: 1. Pneumoperitoneum with peritonitis 2. History of gastric bypass 3. Chronic obstructive pulmonary disease 4. Previous history of recurrent perforated gastric ulcer POSTOPERATIVE DIAGNOSES: 1. Pneumoperitoneum with peritonitis 2. History of gastric bypass 3. Chronic obstructive pulmonary disease 4. Previous history of recurrent perforated gastric ulcer 5. Perforated gastrojejunal ulcer OPERATION: 1. Robotic-assisted da Sunday Xi laparoscopic repair of perforated gastrojejunal ulcer with omental patch 2. Abdominal lavage 3 L normal saline 3. Placement of #19 round Jan-Guardado drain gastrojejunal anastomosis repair 4. Intraoperative esophagogastrojejunoscopy ESTIMATED BLOOD LOSS: 5 mL. SPECIMENS REMOVED: Aerobic, anaerobic, fungal culture peritoneal fluid COMPLICATIONS: None. OPERATIVE FINDINGS: 1. Early peritonitis with gastric content upper abdomen and pelvis 2. Anterior perforation gastrojejunal ulcer, 5 mm oversewn using jejunal imbrication 3. Negative leak test after repair 4. Dilated transverse colon and sigmoid colon INDICATIONS: The patient is a 57-year-old female who presented to the emergency room acutely with atypical chest pain and epigastric abdominal pain starting last 24 hours. Diagnostic studies demonstrated pneumoperitoneum upper abdomen. With a history of gastric bypass, exploration of the gastrojejunal anastomosis proposed. Robotic assisted laparoscopic approach with possible open technique was described. Benefits and risks of the procedure including but not limited to bleeding, infection, injury to the small bowel was described. Informed consent was obtained. DESCRIPTION OF PROCEDURE: Patient was brought to the operating room, placed in supine position. After general induction, the abdomen had been prepped and draped in standard sterile fashion. The robotic da Sunday XI system was primed. After a timeout protocol was performed, the patient had been prepped and draped in standard sterile fashion. The robot was docked along the right lateral abdomen. Please note prior to docking of the robot; however, a 5 mm 0 degrees laparoscopic trocar entry was performed along the left upper quadrant. The abdomen was insufflated to 15 mmHg pressure which was tolerated well. Diagnostic laparoscopy was performed. Clear gastric content of the upper and lower pelvis was identified with mild turbid fluid. Next, 12 mm lives alone the right upper quadrant, 8 mm trocar along the epigastrium, and additional 8-mm robotic ports were placed along the upper abdomen. the 5 mm trocar was replaced with a 12 mm trocar. Please note that the ports were placed at least 10 to 15 cm away from the target anatomy. The liver was adherent to the upper abdomen. Instruments including grasp suction digital strategist and needle class c truck driver graspers were interchanged by the commercial loan assistant. I had sat at the console. Abdominal ascites was identified along the upper and lower abdomen irrigated with 1 L normal saline. The upper abdomen was irrigated with normal saline. The transverse colon was mildly dilated. The omentum was adherent over the gastric pouch. Upon removal of the greater omentum, a 5 mm anterior gastric perforation was identified. The gastric perforation was oversewn using jejunal imbrication 3-0 Vicryl. Multiple interrupted sutures 2 layers were placed for complete closure using imbrication. An intraoperative esophagogastrojejunoscopy was performed complete closure and without leak. I went to the head of the bed to perform an upper endoscopy and confirmed any leaks. The gastroscope was entered into the mouth and posterior oropharynx to the anastomosis. With air insufflation, no evidence of air leak was found. The anastomosis had been submerged under normal saline. The gastrojejunal anastomosis perforation had sealed. Round # 19 Jan-Guardado drain was entered via the upper left lateral trocar and positioned along the anterior aspect to the anastomosis/repair. The drain was secured to skin using 2-0 nylon. The robot was undocked. The pelvis irrigated with one liter normal saline until clear. Similarly the upper abdomen was also irrigated. Total of 3 L normal saline she is to irrigate the abdomen. All pneumoperitoneum and instruments were evacuated from the abdominal cavity using a closed suction system. Anaerobic and aerobic cultures including fungal cultures Leukotrap of the irrigant fluid. The incisions were reapproximated using 4-0 Monocryl in an interrupted subcuticular fashion. Please note along the trocar sites, local anesthetic was placed as a field block prior to insertion of all instruments. Exofin was applied to the skin. At the left upper quadrant, Optifoam dressing was placed along the DANY site. At the end of the procedure needle, sponge, and instrument count had been verified correct by the highway traffic control technician. The patient was transferred to postanesthesia care unit in stable condition. Patient daughter Alison was obtained via telephone.
[2023-02-05] MEDS ORDERED: ALBUTEROL NEBULIZED 2.5 MG/3 ML INHALATION SCH (20:00)
[2023-02-05] MEDS ORDERED: 0.9% NACL WITH KCL 20 MEQ/L 1,000 ML IV SCH (21:00)
[2023-02-05] MEDS: fentaNYL PCA 500 MCG/50 ML BAG IV SCH (21:53)
[2023-02-05] MEDS: PIPERACILLIN-TAZOBACTAM 3.375 GM in SODIUM CHLORIDE 0.9% 100 ML IVPB SCH (22:08)
[2023-02-05] MEDS: PANTOPRAZOLE 40 MG/10 ML VIAL IVP SCH (22:09)
[2023-02-06] MEDS: ACETAMINOPHEN IV (For NPO) 1,000 MG in EMPTY BAG 1 BAG IVPB SCH ×4 (00:45→17:54)
[2023-02-06] MEDS: HEPARIN SODIUM,PORCINE/PF 5,000 UNIT/0.5 ML SYRINGE SQ SCH ×3 (00:46→20:35)
[2023-02-06] MEDS: SIMETHICONE 80 MG CHEWABLE PO SCH ×4 (00:47→17:53)
[2023-02-06] MEDS: SODIUM CHLORIDE 0.9% 1,000 ML IV SCH ×2 (00:48→21:03)
[2023-02-06] MEDS: ONDANSETRON 4 MG/2 ML VIAL IVP PRN ×3 (01:04→22:45)
[2023-02-06] MEDS: HYDROmorphone 1 MG/ML 1 ML SYRINGE IVP PRN ×3 (01:25→16:31)
[2023-02-06] MEDS: PIPERACILLIN-TAZOBACTAM 3.375 GM in SODIUM CHLORIDE 0.9% 100 ML IVPB SCH ×3 (05:03→20:34)
[2023-02-06] MEDS ORDERED: IPRATROPIUM 0.5 MG/2.5 ML NEBU INHALATION SCH (08:00)
[2023-02-06 08:19] LABS: Basophils # (A) 0.2 k/uL (0-0.2); Basophils % (A) 2 %; Eosinophils % (A) 0 %; HCT 29.9 % (34.0-46.0); Lymphocytes # (A) 0.7 k/uL (1.0-4.8); Lymphocytes % (A) 8 %; MCH 29.1 pg (25.0-35.0); MCHC 32.5 g/dL (31.0-37.0); MCV 89.4 fL (80.0-100.0); Mean Platelet Volume 7.1; Monocytes # (A) 0.4 k/uL (0-1.0); Monocytes % (A) 4 %; Neutrophils # (A) 8.6 k/uL (1.3-7.7); Neutrophils % (A) 86 %; Platelet Count 266 k/uL (150-450); RBC 3.34 m/uL (3.80-5.40); RDW 13.5 % (11.5-15.5)
[2023-02-06 08:28] LABS: African American GFR (CKD) >90 (>60 ml/min/1.73 sqM); Anion Gap 7 mmol/L; Blood Urea Nitrogen 9 mg/dL (7-17); Calcium 7.6 mg/dL (8.4-10.2); Carbon Dioxide 23 mmol/L (22-30); Chloride 109 mmol/L (98-107); HGB 9.7 gm/dL (11.4-16.0); Magnesium 1.5 mg/dL (1.6-2.3); Non-African American GFR(CKD) 82 (>60 ml/min/1.73 sqM); Phosphorus 3.7 mg/dL (2.5-4.5); Potassium 3.9 mmol/L (3.5-5.1); Sodium 139 mmol/L (137-145)
[2023-02-06] MEDS: PANTOPRAZOLE 40 MG/10 ML VIAL IVP SCH ×2 (08:44→20:35)
[2023-02-06] MEDS: 0.9% NACL WITH KCL 20 MEQ/L 1,000 ML IV SCH ×2 (08:45→22:44)
[2023-02-06] MEDS ORDERED: PROCHLORPERAZINE INJ 10 MG/2 ML VIAL IVP PRN (09:31)
[2023-02-06] MEDS: IPRATROPIUM-ALBUTEROL 3 ML NEB INHALATION SCH ×4 (09:48→19:21)
[2023-02-06] MEDS: SYMBICORT 80-4.5 MCG INHALER INHALATION SCH ×2 (09:48→19:21)
--- NOTE | 2023-02-06 10:59 | FL ---
SINGLE CONTRAST UPPER GI EXAMINATION: CLINICAL HISTORY: 57-year-old female recent ulcer perforation repair surgery. Patient status post sl eeve in 2016 and Albert-en-Y and 2018. Reports hiatal hernia repair in July 2022. TECHNIQUE: A single contrast UGI study is performed. A total of 2 minutes 38 seconds of fluoroscopic time was utilized during procedure and 50 images obtained. Total dose area product (DAP) in uGy*m?, mGy*cm? (or similar): 344.6. 25 mL Omnipaque 370 contrast was used. FINDINGS: Trace sliver of free air below the right hemidiaphragm. The patient swallowed oral contrast without d ifficulty or delay. Tertiary peristaltic waves are noted within the esophagus. There is prompt passag e of contrast from the esophagus into the proximal stomach and subsequent passage across the gastroje junostomy with only a mild initial delay. There appears to be a small hiatal hernia present. There is no evidence of contrast extravasation to suggest leak. IMPRESSION: 1. No evidence for leak status post gastric perforation repair. 2. Prior Albert-en-Y gastric bypass. Initial mild delay in passage of contrast across the gastrojejunos rosmery. 3. There appears to be a small hiatal hernia. 4. Trace sliver of free air below the right hemidiaphragm.
[2023-02-06 11:29] VITALS: BMI 25.2
--- NOTE | 2023-02-06 12:05 | P.PN ---
Subjective Progress Note Date: 02/06/23 CHIEF COMPLAINT: Pneumoperitoneum HISTORY OF PRESENT ILLNESS: Patient in the hospital pneumoperitoneum and evidence of perforated gastrojejunal ulcer. She is status post Robotic-assisted da Sunday Xi laparoscopic repair of perforated gastrojejunal ulcer with omental patch. Patient reports that her pain has improved since yesterday. Her pain that she currently has is tolerable. She does admit to nausea and dry heaves. She is having flatus. Upper GI shows no evidence for leak. Prior Albert-en-Y gas tric bypass. Initial mild delay in passage of contrast caused the gastrojejunostomy. There appears to be a small hiatal hernia. Trace sliver of free air below the right hemidiaphragm. Afebrile. WBC 10.0 Hgb is down from 13.1-9.7 platelets 266 sodium 139 potassium 3.9 creatinine 0.80 magnesium 1.5 urine nicotine negative PHYSICAL EXAM: VITAL SIGNS: Reviewed GENERAL: Well-developed in no acute distress. HEENT: No sclera icterus. Extraocular movements grossly intact. Moist buccal mucosa. Head is atraumatic, normocephalic. Hears conversational speech. No nasal drainage. NECK: Supple without lymphadenopathy. CHEST: Non-labored respirations and equal bilateral excursions. CARDIOVASCULAR: Palpable 2+ radial pulses. ABDOMEN: Soft. Nondistended. tender at incision sites MUSCULOSKELETAL: No clubbing or cyanosis. NEUROLOGIC: No focal or lateralizing signs. Cranial nerves II through XII grossly intact. PSYCH: Appropriate affect. Alert and oriented to person, place and time. SKIN: Well perfused. Good skin turgor. ASSESSMENT: 1. Pneumoperitoneum with peritonitis 2. History of gastric bypass 3. Chronic obstructive pulmonary disease 4. Previous history of recurrent perforated gastric ulcer 5. Perforated gastrojejunal ulcer 6. Hypomagnesemia PLAN: -Continue bariatric clear liquids -Replace magnesium -Repeat CBC in a.m. -Continue on fluids -Continue IV Protonix -Continue antibiotics -Zofran dose adjusted to every 6 hours PRN and Compazine added for nausea Physician Necktie Turner note has been reviewed by physician. Signing provider agrees with the documented findings, assessment, and plan of care. Objective - Vital Signs Vital signs: Vital Signs Temp 99.0 F 02/06/23 08:13 Pulse 84 02/06/23 08:13 Resp 18 02/06/23 08:13 BP 124/74 02/06/23 08:13 Pulse Ox 93 L 02/06/23 08:13 FiO2 Intake & Output 02/05/23 02/06/23 02/06/23 18:59 06:59 18:59 Intake Total 1050 100 0 Output Total 155 Balance 1050 -55 0 Weight 62.5 kg Intake: IV 1050 100 Oral 0 Output: Drainage 100 Left Upper Abdomen 100 Estimated Blood Loss 55 - Labs CBC & Chem 7: 02/06/23 07:44 02/06/23 07:44 Labs: Abnormal Lab Results - Last 24 Hours (Table) 02/05/23 02/05/23 02/05/23 Range/Units 09:41 09:41 09:41 RBC (3.80-5.40) m/uL Hgb (11.4-16.0) gm/dL Hct (34.0-46.0) % Neutrophils # (1.3-7.7) k/uL Lymphocytes # (1.0-4.8) k/uL APTT 21.0 L (22.0-30.0) sec Chloride (98-107) mmol/L Glucose 134 H (74-99) mg/dL Calcium (8.4-10.2) mg/dL Magnesium (1.6-2.3) mg/dL Urine Appearance Cloudy H (Clear) Ur Specific [place] >1.050 H (1.001-1.035) Urine Protein Trace H (Negative) Urine Blood Trace H (Negative) Ur Leukocyte Esterase Large H (Negative) Urine RBC 6 H (0-5) /hpf Ur Squamous Epith Cells 56 H (0-4) /hpf Urine Mucus Rare H (None) /hpf 02/06/23 02/06/23 Range/Units 07:44 07:44 RBC 3.34 L (3.80-5.40) m/uL Hgb 9.7 L D (11.4-16.0) gm/dL Hct 29.9 L (34.0-46.0) % Neutrophils # 8.6 H (1.3-7.7) k/uL Lymphocytes # 0.7 L (1.0-4.8) k/uL APTT (22.0-30.0) sec Chloride 109 H (98-107) mmol/L Glucose (74-99) mg/dL Calcium 7.6 L (8.4-10.2) mg/dL Magnesium 1.5 L (1.6-2.3) mg/dL Urine Appearance (Clear) Ur Specific [place] (1.001-1.035) Urine Protein (Negative) Urine Blood (Negative) Ur Leukocyte Esterase (Negative) Urine RBC (0-5) /hpf Ur Squamous Epith Cells (0-4) /hpf Urine Mucus (None) /hpf
[2023-02-06] MEDS: MAGNESIUM SULFATE-D5W PMX 1 GM in DEXTROSE/WATER 1 100ML.BAG IVPB SCH ×4 (12:35→22:48)
[2023-02-07] MEDS: PIPERACILLIN-TAZOBACTAM 3.375 GM in SODIUM CHLORIDE 0.9% 100 ML IVPB SCH ×2 (06:57→12:08)
[2023-02-07] MEDS: SYMBICORT 80-4.5 MCG INHALER INHALATION SCH ×2 (07:33→19:26)
[2023-02-07] MEDS: IPRATROPIUM-ALBUTEROL 3 ML NEB INHALATION SCH ×4 (07:33→19:26)
[2023-02-07] MEDS ORDERED: bisacodyL 5 MG TABLET.DR PO PRN (08:00)
[2023-02-07] MEDS: ACETAMINOPHEN IV (For NPO) 1,000 MG in EMPTY BAG 1 BAG IVPB SCH ×3 (08:39→17:24)
[2023-02-07] MEDS: SIMETHICONE 80 MG CHEWABLE PO SCH ×3 (08:39→17:25)
[2023-02-07 09:17] LABS: HCT 30.9 % (34.0-46.0); Hypochromasia Slight; MCH 29.3 pg (25.0-35.0); MCHC 32.4 g/dL (31.0-37.0); MCV 90.7 fL (80.0-100.0); Mean Platelet Volume 8.2; Platelet Count 281 k/uL (150-450); RBC 3.41 m/uL (3.80-5.40); RDW 13.6 % (11.5-15.5); WBC 7.1 k/uL (3.8-10.6)
[2023-02-07 09:44] VITALS: RESP 16; TEMP 98.3
[2023-02-07] MEDS: PANTOPRAZOLE 40 MG/10 ML VIAL IVP SCH (12:11)
[2023-02-07] MEDS: HEPARIN SODIUM,PORCINE/PF 5,000 UNIT/0.5 ML SYRINGE SQ SCH (12:11)
[2023-02-07 12:12] VITALS: BP 130/77; PULSE 84
[2023-02-07] MEDS: SODIUM CHLORIDE 0.9% 1,000 ML IV SCH ×2 (12:27→17:24)
[2023-02-07] MEDS: 0.9% NACL WITH KCL 20 MEQ/L 1,000 ML IV SCH (12:28)
[2023-02-07] MEDS: fentaNYL PCA 500 MCG/50 ML BAG IV SCH (13:39)
[2023-02-07] MEDS ORDERED: FLUCONAZOLE IN NACL,ISO-OSM 200 MG in SALINE 1 100ML.BAG IVPB SCH (15:00)
--- NOTE | 2023-02-07 15:04 | P.DS ---
Providers Date of admission: 02/05/23 11:31 Expected date of discharge: 02/07/23 Attending physician: Nu Stewart Consults: 02/07/23 13:58 Consult Physician Routine Consulting Provider: Bella Lee Consult Reason/Comments: Antibiotic recommendations Do you want consulting provider notified?: Yes Primary care physician: Stated None Hospital Course: Discharge diagnosis 1. Pneumoperitoneum with peritonitis 2. History of gastric bypass 3. Chronic obstructive pulmonary disease 4. Previous history of recurrent perforated gastric ulcer 5. Perforated gastrojejunal ulcer 6. Hypomagnesemia 7. Low-grade temp resolved. Likely due to atelectasis Hospital course The patient is a 57-year-old female who presented to the emergency room acutely with atypical chest pain and epigastric abdominal pain starting last 24 hours. Diagnostic studies demonstrated pneumoperitoneum upper abdomen. She has a history of gastric bypass. Patient is status post Robotic-assisted da Sunday Xi laparoscopic repair of perforated gastrojejunal ulcer with omental patch. Upper GI shows up no evidence of leak. Patient is tolerating diet. Her pain is controlled. She is afebrile. She is stable for discharge. She is discharged with antibiotics per infectious disease recommendations. Physician Ice Maker note has been reviewed by physician. Signing provider agrees with the documented findings, assessment, and plan of care. Patient Condition at Discharge: Stable Plan - Discharge Summary Discharge Rx Participant: No New Discharge Prescriptions: New Sucralfate [Carafate] 1 gm PO BID #500 ml Fluconazole [Diflucan] 200 mg PO DAILY 14 Days #14 tablet Acetaminophen Tab [Tylenol] 1,000 mg PO Q6HR PRN #30 tablet PRN Reason: Pain Pantoprazole [Protonix] 40 mg PO BID #60 tab Amoxic-Pot Clav 875-125Mg [Augmentin 875-125] 1 tab PO Q12HR 14 Days #28 tab Continue SUMAtriptan succinate [Imitrex] 100 mg PO DAILY PRN #30 tab PRN Reason: MIGRAINES Albuterol Sulfate [Proair Hfa] 1 - 2 puff INHALATION RT-Q6H PRN 30 Days #1 each PRN Reason: Shortness Of Breath Levothyroxine Sodium [Synthroid] 37.5 mcg PO HS ALPRAZolam [ALPRAZolam XR] 0.5 mg PO BID PRN PRN Reason: Anxiety Fluticasone/Umeclidin/Vilanter [Trelegy Ellipta 100-62.5-25] 1 puff INHALATION RT-DAILY Discontinued Pantoprazole [Protonix] 40 mg PO BID 30 Days #60 tab Discharge Medication List Albuterol Sulfate [Proair Hfa] 1 - 2 puff INHALATION RT-Q6H PRN 30 Days #1 each 12/20/21 [Rx] SUMAtriptan succinate [Imitrex] 100 mg PO DAILY PRN #30 tab 12/20/21 [Rx] ALPRAZolam [ALPRAZolam XR] 0.5 mg PO BID PRN 04/13/22 [History] Levothyroxine Sodium [Synthroid] 37.5 mcg PO HS 04/13/22 [History] Fluticasone/Umeclidin/Vilanter [Trelegy Ellipta 100-62.5-25] 1 puff INHALATION RT-DAILY 05/02/22 [History] Acetaminophen Tab [Tylenol] 1,000 mg PO Q6HR PRN #30 tablet 02/07/23 [Rx] Amoxic-Pot Clav 875-125Mg [Augmentin 875-125] 1 tab PO Q12HR 14 Days #28 tab 02/07/23 [Rx] Fluconazole [Diflucan] 200 mg PO DAILY 14 Days #14 tablet 02/07/23 [Rx] Pantoprazole [Protonix] 40 mg PO BID #60 tab 02/07/23 [Rx] Sucralfate [Carafate] 1 gm PO BID #500 ml 02/07/23 [Rx] Follow up Appointment(s)/Referral(s): None,Stated [Primary Care Provider] - 1-2 days [place], [place] [NON-STAFF] - 02/14/23 Activity/Diet/Wound Care/Special Instructions: Wear abdominal binder at all times for comfort. No lifting over 4 pounds in 4 weeks You May shower. No bath tub soaks for two weeks Use Tylenol scheduled for the next 24-48 hours for best pain relief. Use ice along incisions for the today to prevent swelling. Discharge Disposition: HOME SELF-CARE
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
== END 2023-02-07 19:47 | disposition home or self-care (01) | DRG 326 ==
LOC: EC 09:29 → 3SCARD 11:31
PROVIDERS: ADMIT Surgery Plastic and Reconstructive Surgery; ATTEND Surgery Plastic and Reconstructive Surgery
PROC: 8E0W4CZ Robotic Assisted Procedure of Trunk Region, Percutaneous Endoscopic Approach (ICD-10-PCS; 2023-02-05)
PROC: 0DQ64ZZ Repair Stomach, Percutaneous Endoscopic Approach (ICD-10-PCS; principal; 2023-02-05 17:40)
DX: K25.5 Chronic or unspecified gastric ulcer with perforation (principal); K65.8 Other peritonitis; K59.39 Other megacolon; R18.8 Other ascites; K66.8 Other specified disorders of peritoneum; K28.5 Chronic or unspecified gastrojejunal ulcer with perforation; J44.9 Chronic obstructive pulmonary disease, unspecified; M79.7 Fibromyalgia; E83.42 Hypomagnesemia; K44.9 Diaphragmatic hernia without obstruction or gangrene; R00.0 Tachycardia, unspecified; Z87.891 Personal history of nicotine dependence; Z98.84 Bariatric surgery status; Z88.8 Allergy status to other drugs, medicaments and biological substances; Z88.6 Allergy status to analgesic agent; Z91.040 Latex allergy status; Z79.899 Other long term (current) drug therapy; Z79.890 Hormone replacement therapy; Z79.51 Long term (current) use of inhaled steroids; Z87.11 Personal history of peptic ulcer disease; Z83.6 Family history of other diseases of the respiratory system
CPT/HCPCS: 36415; 71045; 74177; 74240; 80051; 80053; 80307; 81001; 82150; 82310; 82565; 83605; 83690; 83735; 84100; 84484; 84520; 85025; 85027; 85610; 85730; 87070; 87075; 87205; 88108; 88305; 93005; 96361; 96365; 96366; 96375; 96376; 99291

== ENCOUNTER 2023-02-09 09:32 | Observation (INO) | payer OTHER ==
[2023-02-09] MEDS ORDERED: HYDROmorphone 0.5 MG/0.5 ML SYRINGE IVP STA (09:53)
[2023-02-09] MEDS ORDERED: NALOXONE 0.4 MG/ML 1 ML VIAL IV PRN (09:54)
--- NOTE | 2023-02-09 10:04 | ED ---
General Adult HPI - General Chief complaint: Nausea/Vomiting/Diarrhea Stated complaint: post op, abd pain Time Seen by Provider: 02/09/23 09:35 Source: patient Mode of arrival: ambulatory Limitations: no limitations - History of Present Illness Initial comments: Dictation was produced using [employer] dictation software. please excuse any grammatical, word or spelling errors. Chief Complaint: 57-year-old female presents emergency Department from Dr. Hernandez's office for abdominal pain History of Present Illness: Patient is a 49-year-old female patient was recently admitted to the hospital. She was in the ER 4 days ago she was diagnosed with ruptured bowel causing peritonitis. She had surgery that same day. Patient was in the hospital admitted discharged 2 days ago. Yesterday she presented to the ER for abdominal pain however she eloped due to not being seen early enough. She eloped and went to [facility] where she had labs and imaging performed. She is discharged. Follow-up with Dr. Hernandez's office today Dr. Stewart sent her to the ER to be admitted. Patient states that she has abdominal pain. Denies any fevers. She does report having low-grade temperatures. She does have a left DANY drain is draining serosanguineous fluid. The ROS documented in this emergency department record has been reviewed and confirmed by me. Those systems with pertinent positive or negative responses have been documented in the HPI. All other systems are other negative and/or noncontributory. - Related Data Home Medications Medication Instructions Recorded Confirmed ALPRAZolam [ALPRAZolam XR] 0.5 mg PO BID PRN 04/13/22 02/09/23 Levothyroxine Sodium [Synthroid] 37.5 mcg PO HS 04/13/22 02/09/23 Fluticasone/Umeclidin/Vilanter 1 puff INHALATION RT-DAILY 05/02/22 02/09/23 [Trelegy Ellipta 100-62.5-25] Previous Rx's Medication Instructions Recorded Albuterol Sulfate [Proair Hfa] 1 - 2 puff INHALATION RT-Q6H PRN 12/20/21 30 Days #1 each SUMAtriptan succinate [Imitrex] 100 mg PO DAILY PRN #30 tab 12/20/21 Acetaminophen Tab [Tylenol] 1,000 mg PO Q6HR PRN #30 tablet 02/07/23 Amoxic-Pot Clav 875-125Mg 1 tab PO Q12HR 14 Days #28 tab 02/07/23 [Augmentin 875-125] Fluconazole [Diflucan] 200 mg PO DAILY 14 Days #14 tablet 02/07/23 Pantoprazole [Protonix] 40 mg PO BID #60 tab 02/07/23 Sucralfate [Carafate] 1 gm PO BID #500 ml 02/07/23 Allergies Allergy/AdvReac Type Severity Reaction Status Date / Time ibuprofen [From Motrin] AdvReac due to Verified 02/09/23 10:47 ulcers latex AdvReac states Verified 02/09/23 10:47 "feels like chest tightens" scopolamine AdvReac contraindictated Verified 02/09/23 10:47 with glaucoma Review of Systems ROS Statement: Those systems with pertinent positive or pertinent negative responses have been documented in the HPI. ROS Other: All systems not noted in ROS Statement are negative. Past Medical History Past Medical History: Chest Pain / Angina, COPD, Eye Disorder, Fibromyalgia, GERD/Reflux, Thyroid Disorder Additional Past Medical History / Comment(s): 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 Migraines, hiatal hernia, thyroid nodule. Gastrojejunal perforation, pneumoperitoneum, generalized arthritis. upper abdominal pain due to hernia History of Any Multi-Drug Resistant Organisms: None Reported Past Surgical History: Bariatric Surgery, Breast Surgery, Cholecystectomy, Uterine Ablation Additional Past Surgical History / Comment(s): EXPLORATORY OF AUGUST 27, HERNIA BOWEL HORVATH SPACE DEFECT @[place] 08-27-19. 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 Surgery for pneumoperitoneum 04/2018 @ [facility]. Adhesiolysis 09/2018. Colonoscopy with upper endoscopy 2017. Gastric sleeve (03/2016). ulcer repair Past Anesthesia/Blood Transfusion Reactions: Motion Sickness, Postoperative Na usea & Vomiting (PONV) Additional Past Anesthesia/Blood Transfusion Reaction / Comment(s): Has never received blood Past Psychological History: Anxiety Smoking Status: Former smoker Past Alcohol Use History: Rare Past Drug Use History: None Reported - Past Family History Mother Additional Family Medical History / Comment(s): Emphysema. Maternal great aunt had breast cancer. Father Additional Family Medical History / Comment(s): airline pilot/first officer w/ plane crash- age 22. Paternal grandmother had breast cancer. General Exam - General Exam Comments Initial Comments: PHYSICAL EXAM: General Impression: Alert and oriented x3, not in acute distress HEENT: Normocephalic atraumatic, extra-ocular movements intact, pupils equal and reactive to light bilaterally, mucous membranes moist. Cardiovascular: Heart regular rate and rhythm Chest: Able to complete full sentences, no retractions, no tachypnea Abdomen: abdomen soft, mild diffuse tenderness, surgical sites converted intact, non-distended, no organomegaly Musculoskeletal: Pulses present and equal in all extremities, no peripheral edema Motor: no focal deficits noted Neurological: CN II-XII grossly intact, no focal motor or sensory deficits noted Skin: Intact with no visualized rashes Psych: Normal affect and mood Limitations: no limitations Course Vital Signs 02/09/23 09:37 Temperature 98.4 F Pulse Rate 59 L Respiratory 18 Rate Blood Pressure 145/83 O2 Sat by Pulse 97 Oximetry Medical Decision Making - Medical Decision Making Was pt. sent in by a medical professional or institution (, PA, AUTO BODY MECHANIC APPRENTICE, urgent care, hospital, or [facility]...) When possible be specific @ -No Did you speak to anyone other than the patient for history (EMS, parent, family, police, friend...)? What history was obtained from this source @ -No Did you review nursing and triage notes (agree or disagree)? Why? @ -I reviewed and agree with nursing and triage notes Were old charts reviewed (outside hosp., previous admission, EMS record, old EKG, old radiological studies, urgent care reports/EKG's, [facility] records)? Report findings @ -Farzaneh reviewed from [facility]. There is suspicion of gastric leakage which may show enteritis versus early abscess. Differential Diagnosis (chest pain, altered mental status, abdominal pain women, abdominal pain men, vaginal bleeding, musculoskeletal, weakness, fever, dyspnea, syncope, headache, dizziness, GI bleed, back pain, seizure, CVA, palpatations, mental health)? @ -Differential Abdominal Pain Women: Appendicitis, Cholecystitis, diverticulosis, ischemic bowel, pancreatitis, hepatitis, UTI, gastroenteritis, AAA, incarcerated hernia, bowel obstruction, constipation, inflammatory bowel, hepatitis, peptic ulcer disease, splenic infarction, perforated viscus, vulvitis, ovarian torsion, PID, kidney stone, placenta abruption, this is not meant to be an all-inclusive list EKG interpreted by me (3pts min.). @ -None done X-rays interpreted by me (1pt min.). @ -None done CT interpreted by me (1pt min.). @ -None done U/S interpreted by me (1pt. min.). @ -None done What testing was considered but not performed or refused? (CT, X-rays, U/S, labs)? Why? @ -None What meds were considered but not given or refused? Why? @ -None Did you discuss the management of the patient with other professionals (professionals i.e. Dr., PA, AUTO BODY MECHANIC APPRENTICE, lab, RT, psych nurse, social services analyst, caser shoe parts, teacher, natural resource officer, case filler)? Give summary @ -Discussed with Dr. Stewart states that she wanted patient admitted. Was smoking cessation discussed for >3mins.? @ -No Was critical care preformed (if so, how long)? @ -No Were there social determinants of health that impacted care today? How? (Homelessness, low income, unemployed, alcoholism, drug addiction, transportation, low edu. Level, literacy, decrease access to med. care, long term, rehab)? @ -No Was there de-escalation of care discussed even if they declined (Discuss DNR or withdrawal of care, Hospice)? DNR status @ -No What co-morbidities impacted this encounter? (DM, HTN, Smoking, COPD, CAD, Cancer, CVA, ARF, Chemo, Hep., AIDS, mental health diagnosis, sleep apnea, morbid obesity)? @ -None Was patient admitted / discharged? Hospital course, mention meds given and route, prescriptions, significant lab abnormalities, going to OR and other pertinent info. @ -57-year-old female sent in by general surgeon for admission. Labs are unremarkable. Chart was reviewed from [facility] suggesting that there may be postoperative complications. Physical examination is benign. Vital signs stable. Patient is admitted. Undiagnosed new problem with uncertain prognosis? @ -No Drug Therapy requiring intensive monitoring for toxicity (Heparin, Nitro, Insulin, Cardizem)? @ -No Were any procedures done? @ -No Diagnosis/symptom? Acute, or Chronic, or Acute on Chronic? Uncomplicated (without systemic symptoms) or Complicated (systemic symptoms)? @ -1. Postoperative Abdominal pain Side effects of treatment? @ -No Exacerbation, Progression, or Severe Exacerbation? @ -No Poses a threat to life or bodily function? How? (Chest pain, USA, CA, pneumonia, PE, COPD, DKA, ARF, appy, cholecystitis, CVA, Diverticulitis, Homicidal, Suicidal, threat to staff... and all critical care pts) @ -No - Lab Data Result diagrams: 02/09/23 10:21 02/09/23 10:21 Lab Results 02/09/23 02/09/23 Range/Units 10:21 10:21 WBC 6.0 (3.8-10.6) k/uL RBC 3.92 (3.80-5.40) m/uL Hgb 11.4 (11.4-16.0) gm/dL Hct 34.4 (34.0-46.0) % MCV 87.7 (80.0-100.0) fL MCH 29.1 (25.0-35.0) pg MCHC 33.2 (31.0-37.0) g/dL RDW 13.4 (11.5-15.5) % Plt Count 376 (150-450) k/uL MPV 7.2 Neutrophils % 76 % Lymphocytes % 15 % Monocytes % 5 % Eosinophils % 3 % Basophils % 0 % Neutrophils # 4.5 (1.3-7.7) k/uL Lymphocytes # 0.9 L (1.0-4.8) k/uL Monocytes # 0.3 (0-1.0) k/uL Eosinophils # 0.2 (0-0.7) k/uL Basophils # 0.0 (0-0.2) k/uL Sodium 140 (137-145) mmol/L Potassium 3.6 (3.5-5.1) mmol/L Chloride 103 (98-107) mmol/L Carbon Dioxide 26 (22-30) mmol/L Anion Gap 11 mmol/L BUN 6 L (7-17) mg/dL Creatinine 0.63 (0.52-1.04) mg/dL Est GFR (CKD-EPI)AfAm >90 (>60 ml/min/1.73 sqM) Est GFR (CKD-EPI)NonAf >90 (>60 ml/min/1.73 sqM) Glucose 95 (74-99) mg/dL Calcium 8.6 (8.4-10.2) mg/dL Disposition Clinical Impression: Postoperative abdominal pain Disposition: ADMITTED IP TO THIS HOSP Condition: Fair Referrals: Adam Castaneda DO [Primary Care Provider] - 1-2 days Decision Time: 11:00
[2023-02-09] MEDS ORDERED: ONDANSETRON 4 MG/2 ML VIAL IVP STA ×2 (10:26→10:47)
[2023-02-09 10:27] LABS: Basophils % (A) 0 %; Eosinophils # (A) 0.2 k/uL (0-0.7); Eosinophils % (A) 3 %; HCT 34.4 % (34.0-46.0); HGB 11.4 gm/dL (11.4-16.0); Lymphocytes # (A) 0.9 k/uL (1.0-4.8); Lymphocytes % (A) 15 %; MCH 29.1 pg (25.0-35.0); MCHC 33.2 g/dL (31.0-37.0); MCV 87.7 fL (80.0-100.0); Mean Platelet Volume 7.2; Monocytes # (A) 0.3 k/uL (0-1.0); Monocytes % (A) 5 %; Neutrophils # (A) 4.5 k/uL (1.3-7.7); Neutrophils % (A) 76 %; Platelet Count 376 k/uL (150-450); RBC 3.92 m/uL (3.80-5.40); RDW 13.4 % (11.5-15.5)
[2023-02-09] MEDS: SODIUM CHLORIDE 0.9% 1,000 ML IV SCH ×2 (10:31→19:32)
[2023-02-09 10:36] LABS: African American GFR (CKD) >90 (>60 ml/min/1.73 sqM); Anion Gap 11 mmol/L; Blood Urea Nitrogen 6 mg/dL (7-17); Calcium 8.6 mg/dL (8.4-10.2); Carbon Dioxide 26 mmol/L (22-30); Chloride 103 mmol/L (98-107); Glucose 95 mg/dL (74-99); Non-African American GFR(CKD) >90 (>60 ml/min/1.73 sqM); Potassium 3.6 mmol/L (3.5-5.1); Sodium 140 mmol/L (137-145)
[2023-02-09] MEDS ORDERED: ONDANSETRON 4 MG/2 ML VIAL IVP PRN ×2 (14:13→14:51)
--- NOTE | 2023-02-09 15:01 | P.GSHP ---
History of Present Illness H&P Date: 02/09/23 CHIEF COMPLAINT: Abdominal pain HISTORY OF PRESENT ILLNESS: This is a 57-year-old female who is status post robotic laparoscopic repair of a perforated gastrojejunal ulcer with omental patch on 02/05/2023. She was just recently discharged on 02/07/2023. Patient reports that her abdominal pain is about the same and has not worsened over the last few days. She has been dealing with nausea and that has been having low- grade fevers as high as 100.5. She describes the pain as a burning dull achy and constant. The pain is in the lower abdomen. She initially presented to the ER here at [facility] yesterday but due to her visit was she left and went to [facility]. There they performed a CAT scan and findings demonstrated postsurgical change and questionable abscess of gastric perforation site. Her white count was normal. Patient was discharged from the ER with a follow-up scheduled today with Dr. Stewart. Patient was sent to the ER by Dr. Stewart for hospital admission. Patient's DANY drain output has been serous in color. PAST MEDICAL HISTORY: See list. PAST SURGICAL HISTORY: See list. MEDICATIONS: See list. ALLERGIES: See list. SOCIAL HISTORY: No illicit drug use. REVIEW OF SYSTEMS: CONSTITUTIONAL: Denies fever or chills. HEENT: Denies blurred vision, vision changes, or eye pain. Denies hemoptysis ENDOCRINE: Denies heat or cold intolerance. CARDIOVASCULAR: Denies chest pain or pressure. RESPIRATORY: No shortness of breath. GASTROINTESTINAL: Denies abdominal pain. Denies nausea or vomiting. NEURO: Denies history of seizures. PSYCH: No depression or suicidal ideation HEMATOLOGIC: Denies bleeding disorders. LYMPHATIC: The patient denies any lumps and bumps around the neck. GENITOURINARY: Denies any blood in urine or increased urinary frequency. MUSCULOSKELETAL: Denies myalgias. Denies joint swelling. Denies decreased range of motion beyond patients baseline. SKIN: Denies pruitis. Denies rash. PHYSICAL EXAM: VITAL SIGNS: Reviewed GENERAL: Well-developed in no acute distress. HEENT: No sclera icterus. Extraocular movements grossly intact. Moist buccal mucosa. Head is atraumatic, normocephalic. Hears conversational speech. No nasal drainage. NECK: Supple without lymphadenopathy. CHEST: Non-labored respirations and equal bilateral excursions. CARDIOVASCULAR: Palpable 2+ radial pulses. ABDOMEN: Soft. Nondistended. Mild diffuse lower abdominal tenderness. Incision sites clean dry and intact. MUSCULOSKELETAL: No clubbing or cyanosis. NEUROLOGIC: No focal or lateralizing signs. Cranial nerves II through XII grossly intact. PSYCH: Appropriate affect. Alert and oriented to person, place and time. SKIN: Well perfused. Good skin turgor. LABORATORY DATA: WBC is 6.0 hgb 11.4 platelets 376 Sodium 140 potassium 3.6 creatinine 0.63 IMAGING: Computed tomography scan findings are not available to me ASSESSMENT: 1. Abdominal pain 2. Questionable abscess at gastric perforation site 3. Recent robotic laparoscopic repair of perforated gastrojejunal ulcer on 02/05/2023 4. History of gastric bypass PLAN: -Further recommendations forthcoming per surgeon -Add IV Zosyn and Diflucan -Continue to monitor -Continue pain medication as needed -continue Zofran and add Compazine as needed for nausea -Continue IV fluids -Continue IV Protonix -DVT prophylaxis subcu heparin Physician Mill Operator Helper note has been reviewed by physician. Signing provider agrees with the documented findings, assessment, and plan of care. Past Medical History Past Medical History: Chest Pain / Angina, COPD, Eye Disorder, Fibromyalgia, GERD/Reflux, Thyroid Disorder Additional Past Medical History / Comment(s): 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 Migraines, hiatal hernia, thyroid nodule. Gastrojejunal perforation, pneumoperitoneum, generalized arthritis. upper abdominal pain due to hernia History of Any Multi-Drug Resistant Organisms: None Reported Past Surgical History: Bariatric Surgery, Breast Surgery, Cholecystectomy, Uterine Ablation Additional Past Surgical History / Comment(s): EXPLORATORY OF AUGUST 27, HERNIA BOWEL HORVATH SPACE DEFECT @[place] 08-27-19. 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 Surgery for pneumoperitoneum 04/2018 @ [facility]. Adhesiolysis 09/2018. Colonoscopy with upper endoscopy 2017. Gastric sleeve (03/2016). ulcer repair Past Anesthesia/Blood Transfusion Reactions: Motion Sickness, Postoperative Nausea & Vomiting (PONV) Additional Past Anesthesia/Blood Transfusion Reaction / Comment(s): Has never received blood Past Psychological History: Anxiety Smoking Status: Former smoker Past Alcohol Use History: Rare Past Drug Use History: None Reported - Past Family History Mother Additional Family Medical History / Comment(s): Emphysema. Maternal great aunt had breast cancer. Father Additional Family Medical History / Comment(s): air force pilot w/ plane crash- age 22. Paternal grandmother had breast cancer. Medications and Allergies Home Medications Medication Instructions Recorded Confirmed Type Albuterol Sulfate [Proair Hfa] 1 - 2 puff INHALATION RT-Q6H PRN 12/20/21 02/09/23 Rx 30 Days #1 each SUMAtriptan succinate [Imitrex] 100 mg PO DAILY PRN #30 tab 12/20/21 02/09/23 Rx ALPRAZolam [ALPRAZolam XR] 0.5 mg PO BID PRN 04/13/22 02/09/23 History Levothyroxine Sodium [Synthroid] 37.5 mcg PO HS 04/13/22 02/09/23 History Fluticasone/Umeclidin/Vilanter 1 puff INHALATION RT-DAILY 05/02/22 02/09/23 History [Trelegy Ellipta 100-62.5-25] Acetaminophen Tab [Tylenol] 1,000 mg PO Q6HR PRN #30 tablet 02/07/23 02/09/23 Rx Amoxic-Pot Clav 875-125Mg 1 tab PO Q12HR 14 Days #28 tab 02/07/23 02/09/23 Rx [Augmentin 875-125] Fluconazole [Diflucan] 200 mg PO DAILY 14 Days #14 tablet 02/07/23 02/09/23 Rx Pantoprazole [Protonix] 40 mg PO BID #60 tab 02/07/23 02/09/23 Rx Sucralfate [Carafate] 1 gm PO BID #500 ml 02/07/23 02/09/23 Rx Allergies Allergy/AdvReac Type Severity Reaction Status Date / Time ibuprofen [From Motrin] AdvReac due to Verified 02/09/23 10:47 ulcers latex AdvReac states Verified 02/09/23 10:47 "feels like chest tightens" scopolamine AdvReac contraindictated Verified 02/09/23 10:47 with glaucoma Surgical - Exam Vital Signs Temp Pulse Resp BP Pulse Ox 98.4 F 59 L 18 145/83 97 02/09/23 09:37 02/09/23 09:37 02/09/23 09:37 02/09/23 09:37 02/09/23 09:37 Results - Labs 02/09/23 10:21 02/09/23 10:21 Abnormal Lab Results - Last 24 Hours (Table) 02/09/23 02/09/23 Range/Units 10:21 10:21 Lymphocytes # 0.9 L (1.0-4.8) k/uL BUN 6 L (7-17) mg/dL Diabetes panel 02/09/23 Range/Units 10:21 Sodium 140 (137-145) mmol/L Potassium 3.6 (3.5-5.1) mmol/L Chloride 103 (98-107) mmol/L Carbon Dioxide 26 (22-30) mmol/L BUN 6 L (7-17) mg/dL Creatinine 0.63 (0.52-1.04) mg/dL Glucose 95 (74-99) mg/dL Calcium 8.6 (8.4-10.2) mg/dL Calcium panel 02/09/23 Range/Units 10:21 Calcium 8.6 (8.4-10.2) mg/dL Pituitary panel 02/09/23 Range/Units 10:21 Sodium 140 (137-145) mmol/L Potassium 3.6 (3.5-5.1) mmol/L Chloride 103 (98-107) mmol/L Carbon Dioxide 26 (22-30) mmol/L BUN 6 L (7-17) mg/dL Creatinine 0.63 (0.52-1.04) mg/dL Glucose 95 (74-99) mg/dL Calcium 8.6 (8.4-10.2) mg/dL Adrenal panel 02/09/23 Range/Units 10:21 Sodium 140 (137-145) mmol/L Potassium 3.6 (3.5-5.1) mmol/L Chloride 103 (98-107) mmol/L Carbon Dioxide 26 (22-30) mmol/L BUN 6 L (7-17) mg/dL Creatinine 0.63 (0.52-1.04) mg/dL Glucose 95 (74-99) mg/dL Calcium 8.6 (8.4-10.2) mg/dL
[2023-02-09] MEDS: FLUCONAZOLE IN NACL,ISO-OSM 200 MG in SALINE 1 100ML.BAG IVPB SCH (15:16)
[2023-02-09] MEDS: PROCHLORPERAZINE INJ 10 MG/2 ML VIAL IVP PRN ×2 (15:16→23:05)
[2023-02-09] MEDS: HYDROmorphone 0.5 MG/0.5 ML SYRINGE IVP PRN ×3 (15:16→23:05)
[2023-02-09] MEDS: PIPERACILLIN-TAZOBACTAM 3.375 GM in SODIUM CHLORIDE 0.9% 100 ML IVPB SCH ×2 (17:41→23:06)
[2023-02-09] MEDS: PANTOPRAZOLE 40 MG/10 ML VIAL IVP SCH (19:56)
[2023-02-09] MEDS: HEPARIN SODIUM,PORCINE/PF 5,000 UNIT/0.5 ML SYRINGE SQ SCH (19:57)
[2023-02-09] MEDS ORDERED: SUMAtriptan succinate 6 MG/0.5 ML VIAL SQ STA (20:44)
[2023-02-10] MEDS: SODIUM CHLORIDE 0.9% 1,000 ML IV SCH ×3 (00:24→23:13)
[2023-02-10] MEDS: PIPERACILLIN-TAZOBACTAM 3.375 GM in SODIUM CHLORIDE 0.9% 100 ML IVPB SCH ×3 (08:43→23:12)
[2023-02-10] MEDS: HEPARIN SODIUM,PORCINE/PF 5,000 UNIT/0.5 ML SYRINGE SQ SCH ×2 (08:43→19:23)
[2023-02-10] MEDS: PANTOPRAZOLE 40 MG/10 ML VIAL IVP SCH ×2 (08:43→19:27)
--- NOTE | 2023-02-10 10:16 | XR ---
EXAMINATION TYPE: XR abdomen 2V DATE OF EXAM: 02/10/2023 HISTORY: Pt c/o nausea, SOB, and abd pain after gastric perforation repair on 02/05/23. Technique: 9 views of the abdomen are submitted following oral ingestion of 1.5 ounces of Isovue 370 . Comparison: Postoperative evaluation from 02/06/2023 Findings: Albert-en-Y gastric bypass noted. There is passage of contrast across the gastrojejunostomy into the li mbs of the Albert-en-Y gastric bypass. I do not see evidence for leak. The appearance is similar to corey or examination from 02/06/2023. No evidence for pneumoperitoneum this time. Small hiatal hernia sugges melissa. Drainage catheter seen within the pelvis. Cholecystectomy clips are in place. IMPRESSION: 1. No evidence for leak in a patient who is status post gastric perforation repair. No evidence for f ree air at this time.
[2023-02-10] MEDS ORDERED: ALPRAZolam 0.25 MG TAB PO PRN (15:02)
[2023-02-10] MEDS ORDERED: SUMAtriptan succinate 50 MG TAB PO PRN (15:02)
[2023-02-10] MEDS ORDERED: HYDROmorphone 1 MG/ML 1 ML SYRINGE IVP PRN (15:03)
[2023-02-10] MEDS ORDERED: ALBUTEROL HFA INHALER INHALATION PRN (15:25)
--- NOTE | 2023-02-10 15:25 | P.PN ---
Subjective Progress Note Date: 02/10/23 Patient readmitted due to outside imaging describing intra-abdominal abscess and leak. Upper GI repeat at this morning demonstrates no evidence of leak. Patient denies any active epigastric abdominal pain. Lower abdominal pain from DANY tube which is serous. Start ground diet. Continue antibiotics. Discontinue DANY chain prior to discharge in 24-48 hours. Objective - Vital Signs Vital signs: Vital Signs Temp 98.9 F 02/10/23 14:40 Pulse 67 02/10/23 14:40 Resp 16 02/10/23 14:40 BP 156/76 02/10/23 14:40 Pulse Ox 97 02/10/23 14:40 FiO2 Intake & Output 02/09/23 02/10/23 02/10/23 18:59 06:59 18:59 Output Total 25 90 Balance -25 -90 Weight 58.513 kg Output: Drainage 25 90 Left Abdomen 25 90 Emesis 0 Other: # Voids 0 2 - Labs CBC & Chem 7: 02/09/23 10:21 02/09/23 10:21
[2023-02-10] MEDS: IPRATROPIUM 0.5 MG/2.5 ML NEBU INHALATION SCH ×2 (15:56→20:35)
[2023-02-10] MEDS: FLUCONAZOLE IN NACL,ISO-OSM 200 MG in SALINE 1 100ML.BAG IVPB SCH (17:08)
[2023-02-10] MEDS: SUCRALFATE 1 GM TAB PO SCH (19:27)
[2023-02-10] MEDS: SYMBICORT 80-4.5 MCG INHALER INHALATION SCH (20:35)
[2023-02-10] MEDS ORDERED: LEVOTHYROXINE 75 MCG TAB PO SCH (21:00)
[2023-02-11] MEDS: SODIUM CHLORIDE 0.9% 1,000 ML IV SCH ×2 (00:39→09:08)
[2023-02-11] MEDS: IPRATROPIUM 0.5 MG/2.5 ML NEBU INHALATION SCH ×3 (04:39→12:00)
[2023-02-11] MEDS: SYMBICORT 80-4.5 MCG INHALER INHALATION SCH (08:13)
[2023-02-11] MEDS ORDERED: FLUCONAZOLE 200 MG PO SCH (09:00)
[2023-02-11] MEDS: PIPERACILLIN-TAZOBACTAM 3.375 GM in SODIUM CHLORIDE 0.9% 100 ML IVPB SCH (09:06)
[2023-02-11] MEDS: PANTOPRAZOLE 40 MG/10 ML VIAL IVP SCH (09:07)
[2023-02-11] MEDS: HEPARIN SODIUM,PORCINE/PF 5,000 UNIT/0.5 ML SYRINGE SQ SCH (09:07)
[2023-02-11] MEDS: SUCRALFATE 1 GM TAB PO SCH (09:07)
[2023-02-11 09:21] LABS: Basophils # (A) 0.05 X 10*3/uL (0.00-0.10); Eosinophils # (A) 0.16 X 10*3/uL (0.04-0.35); Eosinophils % (A) 3.2 %; HCT 31.3 % (37.2-46.3); HGB 10.1 d/dL (12.0-15.0); Lymphocytes # (A) 1.37 X 10*3/uL (0.90-5.00); Lymphocytes % (A) 27.6 %; MCH 28.5 pg (27.0-32.0); MCHC 32.3 d/dL (32.0-37.0); MCV 88.4 FL (80.0-97.0); Mean Platelet Volume 9.8 FL (9.5-12.2); Monocytes # (A) 0.46 X 10*3/uL (0.20-1.00); Monocytes % (A) 9.3 %; NRBC Per 100 WBC 0.02 X 10*3/uL (0.00-0.01); Neutrophils # (A) 2.89 X 10*3/uL (1.80-7.70); Neutrophils % (A) 58.3 %; Platelet Count 395 X 10*3/uL (140-440); RBC 3.54 X 10*6/uL (4.10-5.20); RDW 13.2 % (11.5-14.5); WBC 4.96 X 10*3/uL (4.50-10.00)
[2023-02-11 14:37] VITALS: BP 119/70; PULSE 73; RESP 15; TEMP 98.1
--- NOTE | 2023-02-11 22:47 | P.DS ---
Providers Date of admission: 02/09/23 09:54 Expected date of discharge: 02/11/23 Attending physician: Nu Stewart Primary care physician: Adam Castaneda [facility] Course: Clinically improved. She is tolerating diet. Stable for discharge. Patient Condition at Discharge: Fair Plan - Discharge Summary Discharge Rx Participant: Yes New Discharge Prescriptions: Continue SUMAtriptan succinate [Imitrex] 100 mg PO DAILY PRN #30 tab PRN Reason: MIGRAINES Albuterol Sulfate [Proair Hfa] 1 - 2 puff INHALATION RT-Q6H PRN 30 Days #1 each PRN Reason: Shortness Of Breath Sucralfate [Carafate] 1 gm PO BID #500 ml Fluconazole [Diflucan] 200 mg PO DAILY 14 Days #14 tablet Acetaminophen Tab [Tylenol] 1,000 mg PO Q6HR PRN #30 tablet PRN Reason: Pain Levothyroxine Sodium [Synthroid] 37.5 mcg PO HS ALPRAZolam [ALPRAZolam XR] 0.5 mg PO BID PRN PRN Reason: Anxiety Fluticasone/Umeclidin/Vilanter [Trelegy Ellipta 100-62.5-25] 1 puff INHALATION RT-DAILY Pantoprazole [Protonix] 40 mg PO BID #60 tab Amoxic-Pot Clav 875-125Mg [Augmentin 875-125] 1 tab PO Q12HR 14 Days #28 tab Discharge Medication List Albuterol Sulfate [Proair Hfa] 1 - 2 puff INHALATION RT-Q6H PRN 30 Days #1 each 12/20/21 [Rx] SUMAtriptan succinate [Imitrex] 100 mg PO DAILY PRN #30 tab 12/20/21 [Rx] ALPRAZolam [ALPRAZolam XR] 0.5 mg PO BID PRN 04/13/22 [History] Levothyroxine Sodium [Synthroid] 37.5 mcg PO HS 04/13/22 [History] Fluticasone/Umeclidin/Vilanter [Trelegy Ellipta 100-62.5-25] 1 puff INHALATION RT-DAILY 05/02/22 [History] Acetaminophen Tab [Tylenol] 1,000 mg PO Q6HR PRN #30 tablet 02/07/23 [Rx] Amoxic-Pot Clav 875-125Mg [Augmentin 875-125] 1 tab PO Q12HR 14 Days #28 tab 02/07/23 [Rx] Fluconazole [Diflucan] 200 mg PO DAILY 14 Days #14 tablet 02/07/23 [Rx] Pantoprazole [Protonix] 40 mg PO BID #60 tab 02/07/23 [Rx] Sucralfate [Carafate] 1 gm PO BID #500 ml 02/07/23 [Rx] Follow up Appointment(s)/Referral(s): Adam Castaneda DO [Primary Care Provider] - 1-2 days Bariatric [place], [place] [NON-STAFF] - 02/14/23 Patient Instructions/Handouts: Level 2 National Dysphagia Diet (GEN) Activity/Diet/Wound Care/Special Instructions: DO NOT RETURN TO WORK UNTIL FEBRUARY 26, 2023 when cleared by your surgeon Using antibacterial soap. No lifting over 4 pounds 2 weeks, February 26 May shower. No bathtub soaks for 2 weeks, February 26 Take tylenol simethicone scheduled for 3 days for best pain relief Discharge Disposition: HOME SELF-CARE
== END 2023-02-11 15:32 | disposition home or self-care (01) ==
LOC: EC 09:32 → 6NMEDSUR 09:54
PROVIDERS: ADMIT Surgery Plastic and Reconstructive Surgery; ATTEND Surgery Plastic and Reconstructive Surgery
DX: R10.9 Unspecified abdominal pain (principal); Z98.890 Other specified postprocedural states; J44.9 Chronic obstructive pulmonary disease, unspecified; H40.9 Unspecified glaucoma; M79.7 Fibromyalgia; K21.9 Gastro-esophageal reflux disease without esophagitis; E04.1 Nontoxic single thyroid nodule; G43.909 Migraine, unspecified, not intractable, without status migrainosus; Z98.84 Bariatric surgery status; M19.90 Unspecified osteoarthritis, unspecified site; Z90.49 Acquired absence of other specified parts of digestive tract; F41.9 Anxiety disorder, unspecified; Z87.891 Personal history of nicotine dependence; Z80.3 Family history of malignant neoplasm of breast; Z82.5 Family history of asthma and other chronic lower respiratory diseases; Z79.890 Hormone replacement therapy; Z79.51 Long term (current) use of inhaled steroids; Z79.899 Other long term (current) drug therapy; Z88.8 Allergy status to other drugs, medicaments and biological substances; Z88.6 Allergy status to analgesic agent; Z91.040 Latex allergy status
CPT/HCPCS: 96376 ×4; 96365; 96366 ×3; 96367; 96372 ×2; 96375 ×2; 99285; 36415; 94640 ×2; 80048; 85025 ×2; 74019; G0378 ×3; J3030; J2543 ×3; J0780; J2405; J1450 ×2; C9113 ×3; J1170; Q9967; J1644 ×2

== ENCOUNTER → 2023-04-09 | Outpatient (CLI) | payer OTHER ==
--- NOTE | 2023-04-10 15:33 | BD ---
EXAMINATION TYPE: Axial Bone Density DATE OF EXAM: 04/09/2023 CLINICAL HISTORY: 57 years old Female. ICD-10 CODE: Z78.0ASYMPTOMATIC MENOPAUSAL STATE Height: 60.5 Weight: 126 FRAX RISK QUESTIONS: Family History (Parent hip fracture): no History of Fracture in Adulthood: no Secondary Osteoporosis: no 3. Menopause before 45: yes 34 Rheumatoid Arthritis: no RISK FACTORS HISTORY OF: Family History of Osteoporosis: yes , grandparents both sides Active: yes Diet low in dairy products/other sources of calcium: no Postmenopausal woman: yes, 34 Lost more than 2 inches in height since high school: no Frequent falls: no Poor Health: no MEDICATIONS: Thyroid Medications: yes Which medication: Levothyroxine How Lon+ years Additional Medications: yes reflux, xanax, migraine meds, copd , muscle relaxer , ultram Additional History: yes bariatric surgery and EXAM MEASUREMENTS: Bone mineral densitometry was performed using the [employer] System. Bone mineral density as measured about the Lumbar spine is: ----- L1-L4(G/cm2): 1.197 T Score Values are as follows: ----- L1: -0.9 ----- L2: 0.0 ----- L3: 0.9 ----- L4: 0.1 ----- L1-L4: 0.1 Z Score Values are as follows: ----- L1: 0.5 ----- L2: 1.4 ----- L3: 2.3 ----- L4: 1.5 ----- L1-L4: 1.5 Bone mineral density has: Decreased -13.0% since study of: 12/30/2004 Bone mineral density about the R hip (g/cm2): 0.898 Bone mineral density about the L hip (g/cm2): 0.888 T Score values are as follows: -----R Neck: -1.4 -----L Neck: -1.3 -----R Total: -0.9 -----L Total: -1.0 Z Score values are as follows: -----R Neck: -0.1 -----L Neck: 0.0 -----R Total: 0.2 -----L Total: 0.1 Bone mineral density has: Decreased -29.9% since study of: 12/30/2004 FRAX%s: The graph provided illustrates a 7.4% chance for a major osteoporotic fx and a 0.6% chance fo r the hips probability for fx in 10 years time. IMPRESSION: Osteopenia (T Score between -2.5 and -1). There is slightly increased risk of fracture and the patient may be considered for treatment. Re-Screen 2-5 years. NOTE: T-SCORE=SD OF THE YOUNG ADULT MEAN.
== END | disposition home or self-care (01) ==
LOC: RADBDWWP 13:48
PROVIDERS: ATTEND Internal Medicine
DX: M85.89 Other specified disorders of bone density and structure, multiple sites (principal); Z78.0 Asymptomatic menopausal state
CPT/HCPCS: 77080

== ENCOUNTER 2023-05-30 23:40 | Emergency (ER) | payer OTHER ==
[2023-05-30 23:54] VITALS: TEMP 98.3
[2023-05-31 00:17] LABS: Basophils % (A) 0 %; Eosinophils # (A) 0.1 k/uL (0-0.7); Eosinophils % (A) 1 %; HCT 39.5 % (34.0-46.0); HGB 12.3 gm/dL (11.4-16.0); Hypochromasia Slight; Lymphocytes # (A) 2.6 k/uL (1.0-4.8); Lymphocytes % (A) 37 %; MCH 25.7 pg (25.0-35.0); MCHC 31.1 g/dL (31.0-37.0); MCV 82.4 fL (80.0-100.0); Mean Platelet Volume 7.3; Monocytes # (A) 0.4 k/uL (0-1.0); Monocytes % (A) 5 %; Neutrophils # (A) 3.8 k/uL (1.3-7.7); Neutrophils % (A) 54 %; Platelet Count 330 k/uL (150-450); RDW 14.5 % (11.5-15.5)
[2023-05-31 00:28] LABS: INR 0.9 (<1.2); Partial Thromboplastin Time 22.4 sec (22.0-30.0); Prothrombin Time 9.9 sec (9.0-12.0)
[2023-05-31 00:38] LABS: ALT 12 U/L (4-34); AST 21 U/L (14-36); African American GFR (CKD) 88 (>60 ml/min/1.73 sqM); Alkaline Phosphatase 75 U/L (38-126); Amylase 88 U/L (30-110); Anion Gap 13 mmol/L; Blood Urea Nitrogen 8 mg/dL (7-17); Calcium 10.3 mg/dL (8.4-10.2); Carbon Dioxide 27 mmol/L (22-30); Chloride 101 mmol/L (98-107); Glucose 112 mg/dL (74-99); Lipase 160 U/L (23-300); Non-African American GFR(CKD) 76 (>60 ml/min/1.73 sqM); Potassium 3.8 mmol/L (3.5-5.1); Sodium 141 mmol/L (137-145); Total Bilirubin 0.6 mg/dL (0.2-1.3); Total Protein 8.2 g/dL (6.3-8.2)
[2023-05-31] MEDS: ONDANSETRON 4 MG/2 ML VIAL IVP STA ×2 (01:46→03:26)
--- NOTE | 2023-05-31 01:52 | XR ---
EXAM: XR Chest, 2 Views CLINICAL HISTORY: ITS.REASON XR Reason: chest pain TECHNIQUE: Frontal and lateral views of the chest. COMPARISON: No relevant prior studies available. FINDINGS: Lungs: Unremarkable. No consolidation. Pleural space: Unremarkable. No pneumothorax. No pleural effusions. Heart: Unremarkable. No cardiomegaly. Mediastinum: Unremarkable. Bones/joints: No acute osseous abnormalities. IMPRESSION: Normal chest.
[2023-05-31] MEDS ORDERED: PANTOPRAZOLE 40 MG/10 ML VIAL IVP STA (03:02)
[2023-05-31] MEDS ORDERED: SODIUM CHLORIDE 0.9% 1,000 ML IV STA (03:02)
[2023-05-31] MEDS ORDERED: MORPHINE SULFATE 4 MG/ML SYRINGE IVP STA (03:02)
[2023-05-31 03:25] VITALS: RESP 16
--- NOTE | 2023-05-31 04:31 | CT ---
EXAM: CT Abdomen and Pelvis With Intravenous Contrast CLINICAL HISTORY: ITS.REASON CT Reason: pain TECHNIQUE: Axial computed tomography images of the abdomen and pelvis with intravenous contrast. CTDI is 12.5 mGy and DLP is 524.2 mGy-cm. This CT exam was performed using one or more of the following dose reduction techniques: automated exposure control, adjustment of the mA and/or kV according to patient size, and/or use of iterative reconstruction technique. COMPARISON: 02/05/2023 FINDINGS: Lung bases: Unremarkable. No mass. No consolidation. ABDOMEN: Liver: Unremarkable. No mass. Gallbladder and bile ducts: Gallbladder has been removed. No ductal dilation. Pancreas: Unremarkable. No mass. No ductal dilation. Spleen: Unremarkable. No splenomegaly. Adrenals: Unremarkable. No mass. Kidneys and ureters: 1 cm simple cyst arising off the upper pole of the left kidney. No further workup is required. No hydronephrosis. Stomach and bowel: Patient is status post gastric sleeve and a gastrojejunostomy. No obstruction. No mucosal thickening. PELVIS: Appendix: No findings to suggest acute appendicitis. Bladder: Unremarkable. No mass. Reproductive: Unremarkable as visualized. ABDOMEN and PELVIS: Intraperitoneal space: Unremarkable. No free air. No significant fluid collection. Bones/joints: No acute fracture. No dislocation. Soft tissues: Unremarkable. Vasculature: Unremarkable. No abdominal aortic aneurysm. Lymph nodes: Unremarkable. No enlarged lymph nodes. IMPRESSION: No acute findings in the abdomen or pelvis.
[2023-05-31] MEDS ORDERED: MAG HYDROX/AL HYDROX/SIMETH 30 ML, HYOSCYAMINE ELIXIR 10 ML, LIDOCAINE 2% GLYDO JELLY 1... PO STA ×3 (05:10)
--- NOTE | 2023-05-31 05:12 | ED ---
General Adult HPI - General Chief complaint: Abdominal Pain Stated complaint: Chest Pain Time Seen by Provider: 05/31/23 02:45 Source: patient, RN notes reviewed, old records reviewed Mode of arrival: ambulatory Limitations: no limitations - History of Present Illness Initial comments: Patient is a 57-year-old female with past medical history remarkable for acid reflux, gastric ulcers, and angina, fibromyalgia who presents emergency department concern that he may have had a ruptured ulcer. States she has a history of this. 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 He does complain of epigastric abdominal discomfort. Describes is burning, achy. Endorses nausea. Denies any diarrhea, constipation. Also complains of some fullness in her chest however this is typical when her abdominal pain is worse. Presents for further evaluation at this time. - Related Data Home Medications Medication Instructions Recorded Confirmed ALPRAZolam [ALPRAZolam XR] 0.5 mg PO BID PRN 04/13/22 02/15/23 Levothyroxine Sodium [Synthroid] 37.5 mcg PO HS 04/13/22 02/15/23 Fluticasone/Umeclidin/Vilanter 1 puff INHALATION RT-DAILY 05/02/22 02/15/23 [Trelegy Ellipta 100-62.5-25] Previous Rx's Medication Instructions Recorded Albuterol Sulfate [Proair Hfa] 1 - 2 puff INHALATION RT-Q6H PRN 12/20/21 30 Days #1 each SUMAtriptan succinate [Imitrex] 100 mg PO DAILY PRN #30 tab 12/20/21 Acetaminophen Tab [Tylenol] 1,000 mg PO Q6HR PRN #30 tablet 02/07/23 Amoxic-Pot Clav 875-125Mg 1 tab PO Q12HR 14 Days #28 tab 02/07/23 [Augmentin 875-125] Fluconazole [Diflucan] 200 mg PO DAILY 14 Days #14 tablet 02/07/23 Pantoprazole [Protonix] 40 mg PO BID #60 tab 02/07/23 Sucralfate [Carafate] 1 gm PO BID #500 ml 02/07/23 Allergies Allergy/AdvReac Type Severity Reaction Status Date / Time ibuprofen [From Motrin] AdvReac due to Verified 05/30/23 23:49 ulcers latex AdvReac states Verified 05/30/23 23:49 "feels like chest tightens" scopolamine AdvReac contraindictated Verified 05/30/23 23:49 with glaucoma Review of Systems ROS Statement: Those systems with pertinent positive or pertinent negative responses have been documented in the HPI. Review of Systems: CONST: Denies fever EYES: Denies blurry vision ENT: Denies nasal congestion C/V: Denies Chest pain RESP: Denies shortness of breath GI: Endorses abdominal pain : Denies dysuria SKIN: Denies rash. MSK: Denies joint pain. NEURO: Denies headache ROS Other: All systems not noted in ROS Statement are negative. Past Medical History Past Medical History: Chest Pain / Angina, COPD, Eye Disorder, Fibromyalgia, GERD/Reflux, Thyroid Disorder Additional Past Medical History / Comment(s): 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 Migraines, hiatal hernia, thyroid nodule. Gastrojejunal perforation, pneumoperitoneum, generalized arthritis. upper abdominal pain due to hernia, glaucoma. History of Any Multi-Drug Resistant Organisms: None Reported Past Surgical History: Bariatric Surgery, Breast Surgery, Cholecystectomy, Uterine Ablation Additional Past Surgical History / Comment(s): EXPLORATORY OF AUGUST 27, HERNIA BOWEL HORVATH SPACE DEFECT @[facility] 08-27-19. 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 Surgery for pneumoperitoneum 04/2018 @ [facility]. Adhesiolysis 09/2018. Colonoscopy with upper endoscopy 2017. Gastric sleeve (03/2016). ulcer repair Past Anesthesia/Blood Transfusion Reactions: Motion Sickness, Postoperative Nausea & Vomiting (PONV) Additional Past Anesthesia/Blood Transfusion Reaction / Comment(s): Has never received blood Past Psychological History: Anxiety Smoking Status: Former smoker Past Alcohol Use History: Rare Past Drug Use History: None Reported - Past Family History Mother Additional Family Medical History / Comment(s): Emphysema. Maternal great aunt had breast cancer. Father Additional Family Medical History / Comment(s): automatic pilot mechanic w/ plane crash- age 22. Paternal grandmother had breast cancer. General Exam - General Exam Comments Initial Comments: General: Appears in no acute distress. HEAD: Normal with no signs of head trauma. EYES: PERRLA, EOMI, conjunctiva normal, no discharge. ENT: Hearing grossly intact, normal oropharynx. RESPIRATORY: Clear breath sounds bilaterally. No wheezes, rales, or rhonchi. C/V: Regular rate and rhythm. S1 and S2 auscultated, no edema, peripheral pulses 2+ and intact throughout ABD: Abdomen is soft, nondistended. Tender to palpation in the epigastric region. No guarding. No peritoneal signs. No rebound tenderness. EXT: Normal range of motion, no obvious deformity SKIN: No rashes or lesions observed on exposed skin. NEURO: Alert and oriented 4. Limitations: no limitations Course Vital Signs 05/30/23 05/31/23 05/31/23 23:49 03:22 05:38 Temperature 98.3 F 98.3 F Pulse Rate 75 60 63 Respiratory 18 16 16 Rate Blood Pressure 157/91 158/88 137/91 O2 Sat by Pulse 98 99 99 Oximetry Medical Decision Making - Medical Decision Making Was pt. sent in by a medical professional or institution (, PA, LAB RN, urgent care, hospital, or intermediate...) When possible be specific @ -No Did you speak to anyone other than the patient for history (EMS, parent, family, police, friend...)? What history was obtained from this source @ -No Did you review nursing and triage notes (agree or disagree)? Why? @ -I reviewed and agree with nursing and triage notes Were old charts reviewed (outside hosp., previous admission, EMS record, old EKG, old radiological studies, urgent care reports/EKG's, intermediate records)? Report findings @ -Old charts reviewed. Differential Diagnosis (chest pain, altered mental status, abdominal pain women, abdominal pain men, vaginal bleeding, weakness, fever, dyspnea, syncope, headache, dizziness, GI bleed, back pain, seizure, CVA, palpatations, mental health, musculoskeletal)? @ -GERD, gastritis, ulcer, ruptured ulcer, atypical ACS. This list is not all inclusive. EKG interpreted by me (3pts min.). @ -As above X-rays interpreted by me (1pt min.). @ -X-ray reveals no evidence of free air under the diaphragm. No obvious acute cardiopulmonary process. CT interpreted by me (1pt min.). @ -CT imaging negative for any obvious acute intra-abdominal process. U/S interpreted by me (1pt. min.). @ -None done What testing was considered but not performed or refused? (CT, X-rays, U/S, labs)? Why? @ -None What meds were considered but not given or refused? Why? @ -None Did you discuss the management of the patient with other professionals (professionals i.e. , PA, LAB RN, lab, RT, psych nurse, social services director, behavioral health aide, teacher, hydrographical technical officer, case loader operator)? Give summary @ -No Was smoking cessation discussed for >3mins.? @ -No Was critical care preformed (if so, how long)? @ -No Were there social determinants of health that impacted care today? How? (Homelessness, low income, unemployed, alcoholism, drug addiction, transportation, low edu. Level, literacy, decrease access to med. care, usp, rehab)? @ -No Was there de-escalation of care discussed even if they declined (Discuss DNR or withdrawal of care, Hospice)? DNR status @ -No What co-morbidities impacted this encounter? (DM, HTN, Smoking, COPD, CAD, Cancer, CVA, ARF, Chemo, Hep., AIDS, mental health diagnosis, sleep apnea, morbid obesity)? @ -None Was patient admitted / discharged? Hospital course, mention meds given and route, prescriptions, significant lab abnormalities, going to OR and other pertinent info. @ -Based on patient's presentation and physical exam, presents complaining of epigastric pain. History of ruptured ulcer. Patient is concerned for this. Workup started in triage and we will obtain abdominal labs, as well as screen for atypical ACS. She was in agreement this plan. Vital signs within acceptable limits. She'll be sent medically treated with IV fluids, Protonix, Zofran, morphine. EKG shows no signs of acute ischemia. Troponin undetectable. Labs otherwise within acceptable limits. Chest x-ray shows no free air under the diaphragm. CT abdomen and pelvis also negative for any obvious acute intra-abdominal process. Patient given GI cocktail. On reevaluation she is feeling improved. We did discuss her workup. She'll be discharged home this time with her chronic abdominal pain, likely secondary to GERD. I instructed the patient to follow up with their PCP in the next 1-3 days. I provided contact information for follow up with Dr. Benoit. I explained that the patient should return to the emergency department if they experience any worsening symptoms. Strict return precautions were discussed with the patient. The patient expressed understanding of these instructions. I answered all questions that the patient had. The patient was discharged home in fair condition with their prescriptions and follow up information. Undiagnosed new problem with uncertain prognosis? @ -No Drug Therapy requiring intensive monitoring for toxicity (Heparin, Nitro, Insulin, Cardizem)? @ -No Were any procedures done? @ -No Diagnosis/symptom? @ -GERD Acute, or Chronic, or Acute on Chronic? @ -Acute on chronic Uncomplicated (without systemic symptoms) or Complicated (systemic symptoms)? @ -Complicated Side effects of treatment? @ -No Exacerbation, Progression, or Severe Exacerbation? @ -No Poses a threat to life or bodily function? How? (Chest pain, [place], [place], pneumonia, PE, COPD, DKA, ARF, appy, cholecystitis, CVA, Diverticulitis, Homicidal, Suicidal, threat to staff... and all critical care pts) @ -No - Lab Data Result diagrams: 05/30/23 23:59 05/30/23 23:59 Lab Results 05/30/23 05/30/23 05/30/23 Range/Units 23:59 23:59 23:59 WBC 7.0 (3.8-10.6) k/uL RBC 4.80 (3.80-5.40) m/uL Hgb 12.3 (11.4-16.0) gm/dL Hct 39.5 (34.0-46.0) % MCV 82.4 (80.0-100.0) fL MCH 25.7 (25.0-35.0) pg MCHC 31.1 (31.0-37.0) g/dL RDW 14.5 (11.5-15.5) % Plt Count 330 (150-450) k/uL MPV 7.3 Neutrophils % 54 % Lymphocytes % 37 % Monocytes % 5 % Eosinophils % 1 % Basophils % 0 % Neutrophils # 3.8 (1.3-7.7) k/uL Lymphocytes # 2.6 (1.0-4.8) k/uL Monocytes # 0.4 (0-1.0) k/uL Eosinophils # 0.1 (0-0.7) k/uL Basophils # 0.0 (0-0.2) k/uL Hypochromasia Slight PT 9.9 (9.0-12.0) sec INR 0.9 (<1.2) APTT 22.4 (22.0-30.0) sec Sodium 141 (137-145) mmol/L Potassium 3.8 (3.5-5.1) mmol/L Chloride 101 (98-107) mmol/L Carbon Dioxide 27 (22-30) mmol/L Anion Gap 13 mmol/L BUN 8 (7-17) mg/dL Creatinine 0.85 (0.52-1.04) mg/dL Est GFR (CKD-EPI)AfAm 88 (>60 ml/min/1.73 sqM) Est GFR (CKD-EPI)NonAf 76 (>60 ml/min/1.73 sqM) Glucose 112 H (74-99) mg/dL Calcium 10.3 H (8.4-10.2) mg/dL Total Bilirubin 0.6 (0.2-1.3) mg/dL AST 21 (14-36) U/L ALT 12 (4-34) U/L Alkaline Phosphatase 75 (38-126) U/L Troponin I (0.000-0.034) ng/mL Total Protein 8.2 (6.3-8.2) g/dL Albumin 5.0 (3.5-5.0) g/dL Amylase 88 (30-110) U/L Lipase 160 (23-300) U/L 05/30/23 Range/Units 23:59 WBC (3.8-10.6) k/uL RBC (3.80-5.40) m/uL Hgb (11.4-16.0) gm/dL Hct (34.0-46.0) % MCV (80.0-100.0) fL MCH (25.0-35.0) pg MCHC (31.0-37.0) g/dL RDW (11.5-15.5) % Plt Count (150-450) k/uL MPV Neutrophils % % Lymphocytes % % Monocytes % % Eosinophils % % Basophils % % Neutrophils # (1.3-7.7) k/uL Lymphocytes # (1.0-4.8) k/uL Monocytes # (0-1.0) k/uL Eosinophils # (0-0.7) k/uL Basophils # (0-0.2) k/uL Hypochromasia PT (9.0-12.0) sec INR (<1.2) APTT (22.0-30.0) sec Sodium (137-145) mmol/L Potassium (3.5-5.1) mmol/L Chloride (98-107) mmol/L Carbon Dioxide (22-30) mmol/L Anion Gap mmol/L BUN (7-17) mg/dL Creatinine (0.52-1.04) mg/dL Est GFR (CKD-EPI)AfAm (>60 ml/min/1.73 sqM) Est GFR (CKD-EPI)NonAf (>60 ml/min/1.73 sqM) Glucose (74-99) mg/dL Calcium (8.4-10.2) mg/dL Total Bilirubin (0.2-1.3) mg/dL AST (14-36) U/L ALT (4-34) U/L Alkaline Phosphatase (38-126) U/L Troponin I <0.012 (0.000-0.034) ng/mL Total Protein (6.3-8.2) g/dL Albumin (3.5-5.0) g/dL Amylase (30-110) U/L Lipase (23-300) U/L - EKG Data -: EKG Interpreted by Me EKG Comments: 12-lead Electrocardiogram Interpretation Note EKG was reviewed and interpreted by myself. 12-lead ECG performed at 2354 is interpreted by me as revealing normal sinus rhythm at a rate of 69 beats per minute. Bent is normal. MA interval is 140 ms, QRS duration 71 ms, QTc is 363 ms.. There were no ST or T wave abnormalities to suggest myocardial ischemia or injury. R wave progression across the precordium was satisfactory. By my interpretation this EKG is non-diagnostic for acute ischemia. Disposition Clinical Impression: GERD (gastroesophageal reflux disease) Disposition: HOME SELF-CARE Condition: Fair Instructions (If sedation given, give patient instructions): GERD (Gastroesoph ageal Reflux Disease) (ED) Is patient prescribed a controlled substance at d/c from ED?: No Referrals: Favio Gibbons MD [Primary Care Provider] - 1-2 days Bhakti Benoit MD [STAFF PHYSICIAN] - 1-2 days Time of Disposition: 05:00
[2023-05-31 05:43] VITALS: BP 137/91; PULSE 63
== END 2023-05-31 05:39 | disposition home or self-care (01) ==
LOC: EC 23:40
DX: K21.9 Gastro-esophageal reflux disease without esophagitis (principal); J44.9 Chronic obstructive pulmonary disease, unspecified; E07.9 Disorder of thyroid, unspecified; F41.9 Anxiety disorder, unspecified; Z87.891 Personal history of nicotine dependence; Z88.6 Allergy status to analgesic agent; Z91.040 Latex allergy status; Z88.8 Allergy status to other drugs, medicaments and biological substances; Z79.890 Hormone replacement therapy; Z79.899 Other long term (current) drug therapy; Z90.49 Acquired absence of other specified parts of digestive tract
CPT/HCPCS: 36415; 93005; 80053; 82150; 83690; 84484; 85025; 85610; 85730; 71046; 74177; 99284; 96374; 96375 ×2; 96361 ×2; J2270; J2405; C9113; Q9967

== ENCOUNTER 2023-08-14 08:41 | Day surgery (SDC) | payer OTHER ==
[2023-08-14] MEDS ORDERED: LACTATED RINGERS 1,000 ML IV ONE (09:06)
[2023-08-14 09:30] VITALS: TEMP 97.7
[2023-08-14] MEDS ORDERED: PROPOFOL 10 MG/ML 20 ML VIAL IV ONE (09:49)
[2023-08-14] MEDS ORDERED: LIDOCAINE 1% INJ 10MG/ML (20 ML MDV) ONE (09:49)
--- NOTE | 2023-08-14 10:11 | P.PCN ---
Date of Procedure: 08/14/23 Procedure(s) Performed: BRIEF HISTORY: Patient is a 57-year-old, pleasant, white female scheduled for an upper endoscopy as a part of value should of intermittent nausea vomiting as well as severe reflux and passive regurgitation for the last few years. She had history of gastric sleeve surgery in 2018 and subsequently had a gastric bypass surgery 6 months later for perforated gastrojejunal ulcer.. Since then she is been having intermittent nausea vomiting once or twice a week. She is on Protonix 40 mg twice daily with some help. PROCEDURE PERFORMED: Esophagogastroduodenoscopy with biopsy PREOPERATIVE DIAGNOSIS: Nausea vomiting and epigastric pain with passive regurgitation. IV sedation per anesthesia. PROCEDURE: After informed consent was obtained, the patient was brought into the endoscopy unit. IV sedation was administered by Anesthesia under continuous monitoring. Initially the Olympus GIF-140 video endoscope was inserted into the mouth. Esophagus intubated without any difficulty. It was gradually advanced into the gastric pouch. The Albert-en-Y anastomosis appeared patent but mild erythema noted. Abscesses were done from this area. The afferent and efferent loops appeared normal. The gastric pouch appeared normal. Biopsies were done from the anastomosis. The GE junction was located at 39 cm from the incisors. A hiatal hernia noted. There were linear erosions in the distal esophagus consistent with LA grade B reflux esophagitis. The rest of the esophagus appeared normal. The patient tolerated the procedure well. IMPRESSION: 1. Linear erosions in the distal esophagus consistent with LA grade B reflux esophagitis. 2. Small hiatal hernia 3. Evidence of gastric bypass surgery with Albert-en-Y anastomosis and appeared normal. RECOMMENDATIONS: The findings of this examination were discussed with the patient as well as a family. She was advised to continue with Protonix 40 minute grams twice daily and follow antireflux measures. Add Carafate 1 g 4 times daily. Follow up in office in 6 weeks.
[2023-08-14 10:17] VITALS: RESP 16
[2023-08-14 10:40] VITALS: BP 132/81; PULSE 74
== END 2023-08-14 10:28 | disposition home or self-care (01) ==
LOC: ORWHC2ENDO 08:41
PROVIDERS: ATTEND Internal Medicine Gastroenterology
DX: K21.00 Gastro-esophageal reflux disease with esophagitis, without bleeding (principal); K44.9 Diaphragmatic hernia without obstruction or gangrene; J44.9 Chronic obstructive pulmonary disease, unspecified; E07.9 Disorder of thyroid, unspecified; Z98.84 Bariatric surgery status; Z79.899 Other long term (current) drug therapy; Z91.040 Latex allergy status; Z79.891 Long term (current) use of opiate analgesic; Z98.890 Other specified postprocedural states
CPT/HCPCS: 88305; 43239; J2001; J2704

== ENCOUNTER 2023-11-27 16:18 | Emergency (ER) | payer OTHER ==
--- NOTE | 2023-11-27 17:01 | ED ---
Abdominal Pain HPI - General Chief Complaint: Abdominal Pain Stated Complaint: Abd pain Time Seen by Provider: 11/27/23 16:42 Source: patient, RN notes reviewed, old records reviewed Mode of arrival: ambulatory Limitations: no limitations - History of Present Illness Initial Comments: This is a 58-year-old female to the ER for evaluation today. Patient was today for evaluation abdominal pain significant abdominal pain epigastric abdominal pain with nausea no travels no sick contacts no other complaints. Patient's pain is severe without fever. No nausea vomiting or diarrhea no modifying symptoms. Patient has no positive history of bariatric surgery and cholecystectomy MD Complaint: abdominal pain -: hour(s) Location: periumbilical, epigastric Migration to: epigastric Severity: severe Severity scale (1-10): 10 Quality: stabbing, sharp Consistency: constant Improves With: nothing Worsens With: nothing Associated Symptoms: nausea, vomiting Treatments Prior to Arrival: other (0) - Related Data Home Medications Medication Instructions Recorded Confirmed ALPRAZolam [ALPRAZolam XR] 0.5 mg PO BID PRN 04/13/22 11/29/23 Levothyroxine Sodium [Synthroid] 37.5 mcg PO HS 04/13/22 11/29/23 Fluticasone/Umeclidin/Vilanter 1 puff INHALATION RT-DAILY 05/02/22 11/29/23 [Trelegy Ellipta 100-62.5-25] Albuterol Sulfate [Proair Hfa] 2 puff INHALATION RT-Q6H PRN 11/27/23 11/29/23 Butalb/Acetaminophen/Caffeine 1 cap PO BID PRN 11/27/23 11/29/23 [Fioricet 50-300-40 mg Capsule] Olmesartan [Benicar] 20 mg PO DAILY@1200 11/27/23 11/29/23 Ondansetron Odt [Zofran ODT] 4 mg PO TID PRN 11/27/23 11/29/23 modafiniL [Provigil] 200 mg PO BID PRN 11/27/23 11/29/23 Previous Rx's Medication Instructions Recorded SUMAtriptan succinate [Imitrex] 100 mg PO DAILY PRN #30 tab 12/20/21 Pantoprazole [Protonix] 40 mg PO BID #60 tab 02/07/23 Acetaminophen Tab [Tylenol Tab] 1,000 mg PO Q6HR PRN #30 tablet 12/01/23 Sucralfate [Carafate] 1 gm PO ACHS #120 tablet 12/01/23 Allergies Allergy/AdvReac Type Severity Reaction Status Date / Time ibuprofen [From Motrin] AdvReac due to Verified 11/29/23 11:19 ulcers latex AdvReac states Verified 11/29/23 11:19 "feels like chest tightens" scopolamine AdvReac contraindictated Verified 11/29/23 11:19 with glaucoma Review of Systems ROS Statement: Those systems with pertinent positive or pertinent negative responses have been documented in the HPI. ROS Other: All systems not noted in ROS Statement are negative. Past Medical History Past Medical History: Chest Pain / Angina, COPD, Eye Disorder, Fibromyalgia, GERD/Reflux, Thyroid Disorder Additional Past Medical History / Comment(s): 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 Migraines, hiatal hernia, thyroid nodule. Gastrojejunal perforation, pneumoperitoneum, generalized arthritis. upper abdominal pain due to hernia, glaucoma. History of Any Multi-Drug Resistant Organisms: None Reported Past Surgical History: Bariatric Surgery, Breast Surgery, Cholecystectomy, Uterine Ablation Additional Past Surgical History / Comment(s): EXPLORATORY OF AUGUST 27, HERNIA BOWEL HORVATH SPACE DEFECT @[facility] 08-27-19. 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 Surgery for pneumoperitoneum 04/2018 @ [facility]. Adhesiolysis 09/2018. Colonoscopy with upper endoscopy 2017. Gastric sleeve (03/2016). ulcer repair Past Anesthesia/Blood Transfusion Reactions: Motion Sickness, Postoperative Nausea & Vomiting (PONV) Additional Past Anesthesia/Blood Transfusion Reaction / Comment(s): Has never received blood Past Psychological History: Anxiety Smoking Status: Former smoker Past Alcohol Use History: Rare Past Drug Use History: None Reported - Past Family History Mother Additional Family Medical History / Comment(s): Emphysema. Maternal great aunt had breast cancer. Father Additional Family Medical History / Comment(s): pilot steam yacht w/ plane crash- age 22. Paternal grandmother had breast cancer. General Exam Limitations: no limitations General appearance: alert, in no apparent distress Head exam: Present: atraumatic, normocephalic, normal inspection Eye exam: Present: normal appearance, PERRL, EOMI. Absent: scleral icterus, conjunctival injection, periorbital swelling ENT exam: Present: normal exam, mucous membranes moist Neck exam: Present: normal inspection. Absent: tenderness, meningismus, lymphadenopathy Respiratory exam: Present: normal lung sounds bilaterally. Absent: respiratory distress, wheezes, rales, rhonchi, stridor Cardiovascular Exam: Present: regular rate, normal rhythm, normal heart sounds. Absent: systolic murmur, diastolic murmur, rubs, gallop, clicks GI/Abdominal exam: Present: soft, normal bowel sounds. Absent: distended, tenderness, guarding, rebound, rigid Extremities exam: Present: normal inspection, full ROM, normal capillary refill. Absent: tenderness, pedal edema, joint swelling, calf tenderness Back exam: Present: normal inspection Neurological exam: Present: alert, oriented X3, CN II-XII intact Psychiatric exam: Present: normal affect, normal mood Skin exam: Present: warm, dry, intact, normal color. Absent: rash Course Vital Signs 11/27/23 11/27/23 11/27/23 16:33 19:37 22:08 Temperature 98.5 F Pulse Rate 88 74 82 Respiratory 18 16 16 Rate Blood Pressure 155/85 143/84 145/84 O2 Sat by Pulse 98 97 96 Oximetry - Reevaluation(s) Reevaluation #1: Medical records reviewed Reevaluation #2: Patient symptoms improved Reevaluation #3: Patient informed of results and questions answered Reevaluation #4: Was pt. sent in by a medical professional or institution (, PA, SELF PAY REPRESENTATIVE, urgent care, hospital, or retirement...) When possible be specific @ -no Did you speak to anyone other than the patient for history (EMS, parent, family, police, friend...)? What history was obtained from this source @ -no Did you review nursing and triage notes (agree or disagree)? Why? @ -agree Are old charts reviewed (outside hosp., previous admission, EMS record, old EKG, old radiological studies, urgent care reports/EKG's, retirement records)? Report findings @ -yes Differential Diagnosis (chest pain, altered mental status, abdominal pain women, abdominal pain men, vaginal bleeding, weakness, fever, dyspnea, syncope, headache, dizziness, GI bleed, back pain, seizure, CVA, palpatations, mental health, musculoskeletal)? @ -prior EKG interpreted by me (3pts min.). @ -yes X-rays interpreted by me (1pt min.). @ -no CT interpreted by me (1pt min.). @ -yes negative for acute disease U/S interpreted by me (1pt. min.). @ -no What testing was considered but not performed or refused? (CT, X-rays, U/S, labs)? Why? @ -none What meds were considered but not given or refused? Why? @ -none Did you discuss the management of the patient with other professionals (professionals i.e. Dr., PA, SELF PAY REPRESENTATIVE, lab, RT, psych nurse, geriatric social worker, lining sewer, teacher, administrative hearing officer, disease case manager rn)? Give summary @ -no Was smoking cessation discussed for >3mins.? @ -no Was critical care preformed (if so, how long)? @ -no Were there social determinants of health that impacted care today? How? (Homelessness, low income, unemployed, alcoholism, drug addiction, transportation, low edu. Level, literacy, decrease access to med. care, correction, rehab)? @ -none Was there de-escalation of care discussed even if they declined (Discuss DNR or withdrawal of care, Hospice)? DNR status @ -no What co-morbidities impacted this encounter? (DM, HTN, Smoking, COPD, CAD, Cancer, CVA, ARF, Chemo, Hep., AIDS, mental health diagnosis, sleep apnea, morbid obesity)? @ -none Was patient admitted / discharged? Hospital course, mention meds given and route, prescriptions, significant lab abnormalities, going to OR and other pertinent info. @ - 58 female to the ER for evaluation of combination of abdominal pain and pelvic pain. Also chest pain. She has no other complaints pain is resolved here in the ER she feels well and can be discharged home Discharge Undiagnosed new problem with uncertain prognosis? @ -no Drug Therapy requiring intensive monitoring for toxicity (Heparin, Nitro, Insulin, Cardizem)? @ -no Were any procedures done? @ -no Diagnosis/symptom? @ -Abdominal pain chest pain Acute, or Chronic, or Acute on Chronic? @ -Acute Uncomplicated (without systemic symptoms) or Complicated (systemic symptoms)? @ -Complicated Side effects of treatment? @ -no Exacerbation, Progression, or Severe Exacerbation? @ -exacerbation Poses a threat to life or bodily function? How? (Chest pain, [place], [place], pneumonia, PE, COPD, DKA, ARF, appy, cholecystitis, CVA, Diverticulitis, Homicidal, Suicida l, threat to staff... and all critical care pts) @ -yes with significant and severe abdominal pain Reevaluation #5: Differential Abdominal Pain Women: Appendicitis, Cholecystitis, diverticulosis, ischemic bowel, pancreatitis, hepatitis, UTI, gastroenteritis, AAA, incarcerated hernia, bowel obstruction, constipation, inflammatory bowel, hepatitis, peptic ulcer disease, splenic infarction, perforated viscus, vulvitis, ovarian torsion, PID, kidney stone, placenta abruption, this is not meant to be an all-inclusive list Medical Decision Making - Medical Decision Making 58 female to the ER for evaluation of combination of abdominal pain and pelvic pain. Also chest pain. She has no other complaints pain is resolved here in the ER she feels well and can be discharged home - Lab Data Result diagrams: 11/27/23 17:10 11/27/23 17:10 Lab Results 11/27/23 11/27/23 11/27/23 Range/Units 17:10 17:10 17:10 WBC 9.3 (3.8-10.6) k/uL RBC 5.15 (3.80-5.40) m/uL Hgb 14.3 (11.4-16.0) gm/dL Hct 44.6 (34.0-46.0) % MCV 86.6 (80.0-100.0) fL MCH 27.8 (25.0-35.0) pg MCHC 32.1 (31.0-37.0) g/dL RDW 19.7 H (11.5-15.5) % Plt Count 297 (150-450) k/uL MPV 7.6 Neutrophils % 76 % Lymphocytes % 16 % Monocytes % 6 % Eosinophils % 1 % Basophils % 0 % Neutrophils # 7.1 (1.3-7.7) k/uL Lymphocytes # 1.5 (1.0-4.8) k/uL Monocytes # 0.5 (0-1.0) k/uL Eosinophils # 0.1 (0-0.7) k/uL Basophils # 0.0 (0-0.2) k/uL Anisocytosis Slight PT 10.2 (10.0-12.5) sec INR 0.9 (<1.2) APTT 24.6 (22.0-30.0) sec Sodium 141 (137-145) mmol/L Potassium 3.7 (3.5-5.1) mmol/L Chloride 106 (98-107) mmol/L Carbon Dioxide 27 (22-30) mmol/L Anion Gap 8 mmol/L BUN 12 (7-17) mg/dL Creatinine 0.64 (0.52-1.04) mg/dL Est GFR (CKD-EPI)AfAm >90 (>60 ml/min/1.73 sqM) Est GFR (CKD-EPI)NonAf >90 (>60 ml/min/1.73 sqM) Glucose 125 H (74-99) mg/dL Plasma Lactic Acid Bryce (0.7-2.0) mmol/L Calcium 9.6 (8.4-10.2) mg/dL Total Bilirubin 0.8 (0.2-1.3) mg/dL AST 24 (14-36) U/L ALT 20 (4-34) U/L Alkaline Phosphatase 82 (38-126) U/L Troponin I (0.000-0.034) ng/mL Total Protein 7.1 (6.3-8.2) g/dL Albumin 4.5 (3.5-5.0) g/dL Amylase 50 (30-110) U/L Lipase 41 (23-300) U/L Urine Color Urine Appearance (Clear) Urine pH (5.0-8.0) Ur Specific [place] (1.001-1.035) Urine Protein (Negative) Urine Glucose (UA) (Negative) Urine Ketones (Negative) Urine Blood (Negative) Urine Nitrite (Negative) Urine Bilirubin (Negative) Urine Urobilinogen (<2.0) mg/dL Ur Leukocyte Esterase (Negative) 11/27/23 11/27/23 11/27/23 Range/Units 17:10 17:10 17:35 WBC (3.8-10.6) k/uL RBC (3.80-5.40) m/uL Hgb (11.4-16.0) gm/dL Hct (34.0-46.0) % MCV (80.0-100.0) fL MCH (25.0-35.0) pg MCHC (31.0-37.0) g/dL RDW (11.5-15.5) % Plt Count (150-450) k/uL MPV Neutrophils % % Lymphocytes % % Monocytes % % Eosinophils % % Basophils % % Neutrophils # (1.3-7.7) k/uL Lymphocytes # (1.0-4.8) k/uL Monocytes # (0-1.0) k/uL Eosinophils # (0-0.7) k/uL Basophils # (0-0.2) k/uL Anisocytosis PT (10.0-12.5) sec INR (<1.2) APTT (22.0-30.0) sec Sodium (137-145) mmol/L Potassium (3.5-5.1) mmol/L Chloride (98-107) mmol/L Carbon Dioxide (22-30) mmol/L Anion Gap mmol/L BUN (7-17) mg/dL Creatinine (0.52-1.04) mg/dL Est GFR (CKD-EPI)AfAm (>60 ml/min/1.73 sqM) Est GFR (CKD-EPI)NonAf (>60 ml/min/1.73 sqM) Glucose (74-99) mg/dL Plasma Lactic Acid Bryce 1.1 (0.7-2.0) mmol/L Calcium (8.4-10.2) mg/dL Total Bilirubin (0.2-1.3) mg/dL AST (14-36) U/L ALT (4-34) U/L Alkaline Phosphatase (38-126) U/L Troponin I <0.012 (0.000-0.034) ng/mL Total Protein (6.3-8.2) g/dL Albumin (3.5-5.0) g/dL Amylase (30-110) U/L Lipase (23-300) U/L Urine Color Light Yellow Urine Appearance Clear (Clear) Urine pH 5.5 (5.0-8.0) Ur Specific [place] 1.022 (1.001-1.035) Urine Protein Negative (Negative) Urine Glucose (UA) Negative (Negative) Urine Ketones Negative (Negative) Urine Blood Negative (Negative) Urine Nitrite Negative (Negative) Urine Bilirubin Negative (Negative) Urine Urobilinogen <2.0 (<2.0) mg/dL Ur Leukocyte Esterase Negative (Negative) - Radiology Data Radiology results: report reviewed (CT abdomen pelvis is negative for acute disease), image reviewed Disposition Clinical Impression: Abdominal pain, Chest pain Disposition: HOME SELF-CARE Condition: Good Instructions (If sedation given, give patient instructions): Abdominal Pain (ED) Is patient prescribed a controlled substance at d/c from ED?: No Referrals: Adam Castaneda DO [Primary Care Provider] - 1-2 days Time of Disposition: 21:45
[2023-11-27 17:06] VITALS: TEMP 98.5
[2023-11-27] MEDS: SODIUM CHLORIDE 0.9% 1,000 ML IV STA (17:33)
[2023-11-27] MEDS: HYDROmorphone 0.5 MG/0.5 ML SYRINGE IVP STA ×2 (17:34→22:03)
[2023-11-27] MEDS: ONDANSETRON 4 MG/2 ML VIAL IVP STA ×2 (17:35→20:05)
[2023-11-27 18:03] LABS: Appearance,Urine Clear (Clear); Bilirubin,Urine Negative (Negative); Blood,Urine Negative (Negative); Color,Urine Light Yellow; Glucose,Urine (UA) Negative (Negative); Ketones,Urine Negative (Negative); Leukocyte Esterase,Urine Negative (Negative); Nitrite,Urine Negative (Negative); PH, Urine 5.5 (5.0-8.0); Protein,Urine Negative (Negative); Specific Gravity,Urine 1.022 (1.001-1.035); Urobilinogen,Urine <2.0 mg/dL (<2.0)
[2023-11-27 18:09] LABS: Anisocytosis Slight; Basophils % (A) 0 %; Eosinophils # (A) 0.1 k/uL (0-0.7); Eosinophils % (A) 1 %; HCT 44.6 % (34.0-46.0); HGB 14.3 gm/dL (11.4-16.0); Lymphocytes # (A) 1.5 k/uL (1.0-4.8); Lymphocytes % (A) 16 %; MCH 27.8 pg (25.0-35.0); MCHC 32.1 g/dL (31.0-37.0); MCV 86.6 fL (80.0-100.0); Mean Platelet Volume 7.6; Monocytes # (A) 0.5 k/uL (0-1.0); Monocytes % (A) 6 %; Neutrophils # (A) 7.1 k/uL (1.3-7.7); Neutrophils % (A) 76 %; Platelet Count 297 k/uL (150-450); RBC 5.15 m/uL (3.80-5.40); RDW 19.7 % (11.5-15.5); WBC 9.3 k/uL (3.8-10.6)
[2023-11-27 18:12] LABS: ALT 20 U/L (4-34); AST 24 U/L (14-36); African American GFR (CKD) >90 (>60 ml/min/1.73 sqM); Albumin 4.5 g/dL (3.5-5.0); Alkaline Phosphatase 82 U/L (38-126); Amylase 50 U/L (30-110); Anion Gap 8 mmol/L; Blood Urea Nitrogen 12 mg/dL (7-17); Calcium 9.6 mg/dL (8.4-10.2); Carbon Dioxide 27 mmol/L (22-30); Chloride 106 mmol/L (98-107); Glucose 125 mg/dL (74-99); Lipase 41 U/L (23-300); Non-African American GFR(CKD) >90 (>60 ml/min/1.73 sqM); Potassium 3.7 mmol/L (3.5-5.1); Sodium 141 mmol/L (137-145); Total Bilirubin 0.8 mg/dL (0.2-1.3); Total Protein 7.1 g/dL (6.3-8.2)
[2023-11-27 18:40] LABS: INR 0.9 (<1.2); Partial Thromboplastin Time 24.6 sec (22.0-30.0); Prothrombin Time 10.2 sec (10.0-12.5)
[2023-11-27] MEDS: HYDROmorphone 1 MG/ML 1 ML SYRINGE IVP STA (19:16)
[2023-11-27] MEDS: METOCLOPRAMIDE 5 MG/ML 2 ML VIAL IVP STA (20:51)
--- NOTE | 2023-11-27 21:42 | CT ---
EXAMINATION TYPE: CT abdomen pelvis w con CT DLP: 568.3 mGycm, Automated exposure control for dose reduction was used. DATE OF EXAM: 11/27/2023 7:04 PM COMPARISON: 05/31/2023 CLINICAL INDICATION:Female, 58 years old with history of abdominal pain; abdominal pain TECHNIQUE: Axial CT of the abdomen and pelvis. Sagittal and coronal reformats were created on a [employer] workstation. Contrast used:100 mL of Isovue 300 with IV Contrast, (none if empty) Oral contrast used: without Oral Contrast (none if empty) FINDINGS: LOWER CHEST: Mild scarring versus subsegmental atelectasis. No airspace consolidation. Heart is mildl y enlarged. ABDOMEN LIVER: Unremarkable GALLBLADDER AND BILE DUCTS: The gallbladder is surgically absent. Biliary tree does not appear pathol ogically dilated. PANCREAS: Unremarkable. SPLEEN: Unremarkable. ADRENAL GLANDS: Thickened and small nodular appearance of the adrenals, could be due to hyperplasia a nd/or adenomatoid changes.. KIDNEYS AND URETERS: Kidneys enhance symmetrically. No evidence of hydronephrosis or visible renal ca lculus. Small cyst from the medial superior pole left kidney. The ureters are unremarkable. PELVIS BLADDER: Unremarkable REPRODUCTIVE: Uterus and adnexal regions appear grossly unremarkable, though not well assessed by CT. Trace free pelvic fluid. ABDOMEN & PELVIS STOMACH AND BOWEL: Limited assessment without enteric contrast. There is a small to moderate-sized hi atal hernia. Postoperative changes in the region of the lower hiatal hernia, GE junction, stomach, an d small bowel, findings suggest Albert-en-Y gastric bypass procedure. In what appears to be the proxim al Albert limb in the anterior left upper quadrant, there is a thickened appearance of the wall of this bowel segment with haziness and stranding of the adjacent fat indicating inflammation. Loops appear relatively normal more distally, and another anastomotic site in the left midabdomen appears grossly unremarkable. No significant small bowel distention is seen to suggest obstruction. The appendix is n ot clearly seen but no inflammatory process is identified to suggest appendicitis. Mild/moderate stoo l throughout the colon without focal acute finding. PERITONEUM/RETROPERITONEUM: Gas bubbles seen appear to be contained within bowel, without gross pne umoperitoneum identified. There appears to be trace free pelvic fluid, not beyond physiologic. Otherw ise no free fluid. VASCULATURE: Mild atherosclerotic calcifications are present throughout the abdominal aorta and its b ranches. No evidence of aortic aneurysm. Portal veins are enhancing. Splenic vein is patent. SMV is enhancing. LYMPH NODES: No enlarged nodes by CT size criteria. SOFT TISSUE/ABDOMINAL WALL: No acute finding. Tiny fat containing umbilical region hernia. MUSCULOSKELETAL: No acute osseous abnormalities. Mild disc degeneration changes are present throughou t the thoracolumbar spine. IMPRESSION: 1. Postoperative changes involving the stomach and small bowel, likely Albert-en-Y gastric bypass. 2. Inflammatory changes of bowel in the left upper quadrant in what seems to be the proximal Albert li mb, without evidence of obstruction or perforation.
[2023-11-27 21:46] VITALS: RESP 16
[2023-11-27 22:24] VITALS: BP 145/84; PULSE 82
== END 2023-11-27 22:09 | disposition home or self-care (01) ==
LOC: EC 16:18
DX: R10.13 Epigastric pain (principal); R07.9 Chest pain, unspecified; Z87.891 Personal history of nicotine dependence; Z91.040 Latex allergy status; Z88.8 Allergy status to other drugs, medicaments and biological substances; Z88.6 Allergy status to analgesic agent
CPT/HCPCS: 36415; 80053; 82150; 83605; 83690; 84484; 85025; 85610; 85730; 81003; 87040; 74177; 99284; 96374; 96375 ×2; 96376 ×3; J2765; J2405; J1170 ×2; Q9967; 96361

== ENCOUNTER 2023-11-29 10:41 | Inpatient (IN) | payer OTHER ==
--- NOTE | 2023-11-29 10:57 | ED ---
Abdominal Pain HPI - General Chief Complaint: Abdominal Pain Stated Complaint: Abd pain, SOB, Nausea Time Seen by Provider: 11/29/23 10:53 Source: patient, RN notes reviewed Mode of arrival: ambulatory Limitations: no limitations - History of Present Illness Initial Comments: This is a 58-year-old female with a history of albert-en-Y procedure and cholecys tectomy who presents to the ED with a chief complaint of diffuse abdominal pain worse in the epigastric region that is described as a burning sensation. Patient states that the pain has been present since Sunday when she went to the emergency room at [facility] and was discharged home. Patient states that the pain is most severe at the epigastric region, but is diffuse across her whole abdomen is described as a burning sensation. States that she frequently has episodes of nausea and vomiting after meals after her gastric bypass surgery in 2015, patient follows with Dr. Hernandez. She denies fevers, diarrhea, constipation, hematochezia, hematemesis. Patient endorses shortness of breath, has known COPD. - Related Data Home Medications Medication Instructions Recorded Confirmed ALPRAZolam [ALPRAZolam XR] 0.5 mg PO BID PRN 04/13/22 11/29/23 Levothyroxine Sodium [Synthroid] 37.5 mcg PO HS 04/13/22 11/29/23 Fluticasone/Umeclidin/Vilanter 1 puff INHALATION RT-DAILY 05/02/22 11/29/23 [Trelegy Ellipta 100-62.5-25] Albuterol Sulfate [Proair Hfa] 2 puff INHALATION RT-Q6H PRN 11/27/23 11/29/23 Butalb/Acetaminophen/Caffeine 1 cap PO BID PRN 11/27/23 11/29/23 [Fioricet 50-300-40 mg Capsule] Famotidine [Pepcid] 20 mg PO HS 11/27/23 11/29/23 Olmesartan [Benicar] 20 mg PO DAILY@1200 11/27/23 11/29/23 Ondansetron Odt [Zofran Odt] 4 mg PO TID PRN 11/27/23 11/29/23 Sucralfate [Carafate] 1 gm PO BID 11/27/23 11/29/23 modafiniL [Provigil] 200 mg PO BID PRN 11/27/23 11/29/23 Previous Rx's Medication Instructions Recorded SUMAtriptan succinate [Imitrex] 100 mg PO DAILY PRN #30 tab 12/20/21 Pantoprazole [Protonix] 40 mg PO BID #60 tab 02/07/23 Allergies Allergy/AdvReac Type Severity Reaction Status Date / Time ibuprofen [From Motrin] AdvReac due to Verified 11/29/23 11:19 ulcers latex AdvReac states Verified 11/29/23 11:19 "feels like chest tightens" scopolamine AdvReac contraindictated Verified 11/29/23 11:19 with glaucoma Review of Systems ROS Statement: Those systems with pertinent positive or pertinent negative responses have been documented in the HPI. ROS Other: All systems not noted in ROS Statement are negative. Past Medical History Past Medical History: Chest Pain / Angina, COPD, Eye Disorder, Fibromyalgia, GERD/Reflux, Thyroid Disorder Additional Past Medical History / Comment(s): 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 Migraines, hiatal hernia, thyroid nodule. Gastrojejunal perforation, pneumoperitoneum, generalized arthritis. upper abdominal pain due to hernia, glaucoma. History of Any Multi-Drug Resistant Organisms: None Reported Past Surgical History: Bariatric Surgery, Breast Surgery, Cholecystectomy, Uterine Ablation Additional Past Surgical History / Comment(s): EXPLORATORY OF AUGUST 27, HERNIA BOWEL HORVATH SPACE DEFECT @[place] 08-27-19. 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 Surgery for pneumoperitoneum 04/2018 @ [facility]. Adhesiolysis 09/2018. Colonoscopy with upper endoscopy 2017. Gastric sleeve (03/2016). ulcer repair Past Anesthesia/Blood Transfusion Reactions: Motion Sickness, Postoperative Nausea & Vomiting (PONV) Additional Past Anesthesia/Blood Transfusion Reaction / Comment(s): Has never received blood Past Psychological History: Anxiety Smoking Status: Former smoker Past Alcohol Use History: Rare Past Drug Use History: None Reported - Past Family History Mother Additional Family Medical History / Comment(s): Emphysema. Maternal great aunt had breast cancer. Father Additional Family Medical History / Comment(s): ship [employer] pilot w/ plane crash- age 22. Paternal grandmother had breast cancer. General Exam Limitations: no limitations General appearance: alert, in no apparent distress Head exam: Present: atraumatic, normocephalic, normal inspection Eye exam: Present: normal appearance, PERRL, EOMI. Absent: scleral icterus, conjunctival injection, periorbital swelling ENT exam: Present: normal exam, mucous membranes moist Neck exam: Present: normal inspection. Absent: tenderness, meningismus, lymphadenopathy Respiratory exam: Present: normal lung sounds bilaterally. Absent: respiratory distress, wheezes, rales, rhonchi, stridor Cardiovascular Exam: Present: regular rate, normal rhythm, normal heart sounds. Absent: systolic murmur, diastolic murmur, rubs, gallop, clicks GI/Abdominal exam: Present: soft, tenderness (most severe over epigastric), normal bowel sounds. Absent: distended, guarding, rebound, rigid Extremities exam: Present: normal inspection, full ROM, normal capillary refill. Absent: tenderness, pedal edema, joint swelling, calf tenderness Back exam: Present: normal inspection Neurological exam: Present: alert, oriented X3, CN II-XII intact Psychiatric exam: Present: normal affect, normal mood Skin exam: Present: warm, dry, intact, normal color. Absent: rash Course Vital Signs 11/29/23 11/29/23 11/29/23 10:44 13:02 13:24 Temperature 98.3 F 98.1 F Pulse Rate 67 70 Pulse Rate [ 66 Pulse Oximetery ] Respiratory 20 16 16 Rate Blood Pressure 152/89 136/73 Blood Pressure 146/87 [Right Arm] O2 Sat by Pulse 98 97 99 Oximetry 11/29/23 14:18 Temperature Pulse Rate 66 Pulse Rate [ Pulse Oximetery ] Respiratory 16 Rate Blood Pressure 146/87 Blood Pressure [Right Arm] O2 Sat by Pulse 99 Oximetry Medical Decision Making - Medical Decision Making Was pt. sent in by a medical professional or institution (, PA, CARPET FLOOR LAYER APPRENTICE, urgent care, hospital, or long-term...) When possible be specific @ -No Did you speak to anyone other than the patient for history (EMS, parent, family, police, friend...)? What history was obtained from this source @ -No Did you review nursing and triage notes (agree or disagree)? Why? @ -I reviewed and agree with nursing and triage notes Were old charts reviewed (outside hosp., previous admission, EMS record, old EKG, old radiological studies, urgent care reports/EKG's, long-term records)? Report findings @ -No old charts were reviewed Differential Diagnosis (chest pain, altered mental status, abdominal pain women, abdominal pain men, vaginal bleeding, weakness, fever, dyspnea, syncope, headache, dizziness, GI bleed, back pain, seizure, CVA, palpatations, mental health, musculoskeletal)? @ -Differential Abdominal Pain Women: Appendicitis, Cholecystitis, diverticulosis, ischemic bowel, pancreatitis, hepa titis, UTI, gastroenteritis, AAA, incarcerated hernia, bowel obstruction, constipation, inflammatory bowel, hepatitis, peptic ulcer disease, splenic infarction, perforated viscus, vulvitis, ovarian torsion, PID, kidney stone, placenta abruption, this is not meant to be an all-inclusive list EKG interpreted by me (3pts min.). @ -None X-rays interpreted by me (1pt min.). @ -None done CT interpreted by me (1pt min.). @ -CT abdomen pelvis with contrast was postsurgical changes of gastric bypass with Albert-en-Y procedure Persistent thickening of the biliopancreatic limb with inflammatory changes within the anterior mesentery. no evidence of bowel obstruction or free air/fluid U/S interpreted by me (1pt. min.). @ -None done What testing was considered but not performed or refused? (CT, X-rays, U/S, labs)? Why? @ -None What meds were considered but not given or refused? Why? @ -None Did you discuss the management of the patient with other professionals (professionals i.e. , PA, CARPET FLOOR LAYER APPRENTICE, lab, RT, psych nurse, group social worker, food vendor, teacher, community relations officer, caser)? Give summary @ -Discussed case with Dr. Hernandez who patient follows with for gastric bypass surgery. Dr. Hernandez is okay with observation due to patient's abdominal pain. Was smoking cessation discussed for >3mins.? @ -No Was critical care preformed (if so, how long)? @ -No Were there social determinants of health that impacted care today? How? (Homelessness, low income, unemployed, alcoholism, drug addiction, transportation, low edu. Level, literacy, decrease access to med. care, senior care, rehab)? @ -No Was there de-escalation of care discussed even if they declined (Discuss DNR or withdrawal of care, Hospice)? DNR status @ -No What co-morbidities impacted this encounter? (DM, HTN, Smoking, COPD, CAD, Cancer, CVA, ARF, Chemo, Hep., AIDS, mental health diagnosis, sleep apnea, morbid obesity)? @ -previous abdominal surgery, COPD Was patient admitted / discharged? Hospital course, mention meds given and route, prescriptions, significant lab abnormalities, going to OR and other pertinent info. @ -Admitted. 58-year-old female with abdominal pain. On examination patient was found to have diffuse abdominal pain worse over the epigastric region with palpation and no signs of rebound tenderness or rigidity noted. laboratory results are unchanged compared to previous visit to the emergency department on 11/26 with no acute abnormalities. Patient CT of the abdomen and pelvis with contrast no acute changes compared to previous, Notable for persistently biliopancreatic limb with inflammatory changes of the anterior mesentery. At this time patient is still requesting pain medication that is not controlled with IV Dilaudid or Zofran. I discussed this case with Dr. Hernandez who is agreeable with admission to observation due to patient's abdominal pain. Undiagnosed new problem with uncertain prognosis? @ -No Drug Therapy requiring intensive monitoring for toxicity (Heparin, Nitro, Insulin, Cardizem)? @ -No Were any procedures done? @ -No Diagnosis/symptom? @ -abdominal pain refractory to pain medications Acute, or Chronic, or Acute on Chronic? @ -acute Uncomplicated (without systemic symptoms) or Complicated (systemic symptoms)? @ -complicated Side effects of treatment? @ -No Exacerbation, Progression, or Severe Exacerbation? @ -No Poses a threat to life or bodily function? How? (Chest pain, [place], [place], pneumonia, PE, COPD, DKA, ARF, appy, cholecystitis, CVA, Diverticulitis, Homicidal, Suicidal, threat to staff... and all critical care pts) @ -No - Lab Data Result diagrams: 11/29/23 11:21 11/29/23 11:21 Lab Results 11/29/23 11/29/23 11/29/23 Range/Units 11:21 11:21 11:21 WBC 8.8 (3.8-10.6) k/uL RBC 4.72 (3.80-5.40) m/uL Hgb 13.2 (11.4-16.0) gm/dL Hct 41.0 (34.0-46.0) % MCV 86.8 (80.0-100.0) fL MCH 28.0 (25.0-35.0) pg MCHC 32.3 (31.0-37.0) g/dL RDW 19.0 H (11.5-15.5) % Plt Count 274 (150-450) k/uL MPV 7.6 Neutrophils % 83 % Lymphocytes % 12 % Monocytes % 3 % Eosinophils % 1 % Basophils % 0 % Neutrophils # 7.3 (1.3-7.7) k/uL Lymphocytes # 1.0 (1.0-4.8) k/uL Monocytes # 0.3 (0-1.0) k/uL Eosinophils # 0.0 (0-0.7) k/uL Basophils # 0.0 (0-0.2) k/uL Anisocytosis Slight PT 10.0 (10.0-12.5) sec INR 0.9 (<1.2) APTT 24.3 (22.0-30.0) sec Sodium (137-145) mmol/L Potassium (3.5-5.1) mmol/L Chloride (98-107) mmol/L Carbon Dioxide (22-30) mmol/L Anion Gap mmol/L BUN (7-17) mg/dL Creatinine (0.52-1.04) mg/dL Est GFR (CKD-EPI)AfAm (>60 ml/min/1.73 sqM) Est GFR (CKD-EPI)NonAf (>60 ml/min/1.73 sqM) Glucose (74-99) mg/dL Plasma Lactic Acid Bryce (0.7-2.0) mmol/L Calcium (8.4-10.2) mg/dL Phosphorus (2.5-4.5) mg/dL Magnesium (1.6-2.3) mg/dL Total Bilirubin (0.2-1.3) mg/dL AST (14-36) U/L ALT (4-34) U/L Alkaline Phosphatase (38-126) U/L Total Protein (6.3-8.2) g/dL Albumin (3.5-5.0) g/dL Amylase (30-110) U/L Lipase (23-300) U/L Urine Color Colorless Urine Appearance Clear (Clear) Urine pH 7.0 (5.0-8.0) Ur Specific [place] >1.050 H (1.001-1.035) Urine Protein Trace H (Negative) Urine Glucose (UA) Negative (Negative) Urine Ketones Negative (Negative) Urine Blood Negative (Negative) Urine Nitrite Negative (Negative) Urine Bilirubin Negative (Negative) Urine Urobilinogen <2.0 (<2.0) mg/dL Ur Leukocyte Esterase Small H (Negative) Urine RBC 1 (0-5) /hpf Urine WBC 3 (0-5) /hpf Ur Squamous Epith Cells 10 H (0-4) /hpf Urine Mucus Rare H (None) /hpf 11/29/23 11/29/23 Range/Units 11:21 11:21 WBC (3.8-10.6) k/uL RBC (3.80-5.40) m/uL Hgb (11.4-16.0) gm/dL Hct (34.0-46.0) % MCV (80.0-100.0) fL MCH (25.0-35.0) pg MCHC (31.0-37.0) g/dL RDW (11.5-15.5) % Plt Count (150-450) k/uL MPV Neutrophils % % Lymphocytes % % Monocytes % % Eosinophils % % Basophils % % Neutrophils # (1.3-7.7) k/uL Lymphocytes # (1.0-4.8) k/uL Monocytes # (0-1.0) k/uL Eosinophils # (0-0.7) k/uL Basophils # (0-0.2) k/uL Anisocytosis PT (10.0-12.5) sec INR (<1.2) APTT (22.0-30.0) sec Sodium 142 (137-145) mmol/L Potassium 3.7 (3.5-5.1) mmol/L Chloride 106 (98-107) mmol/L Carbon Dioxide 28 (22-30) mmol/L Anion Gap 8 mmol/L BUN 6 L (7-17) mg/dL Creatinine 0.59 (0.52-1.04) mg/dL Est GFR (CKD-EPI)AfAm >90 (>60 ml/min/1.73 sqM) Est GFR (CKD-EPI)NonAf >90 (>60 ml/min/1.73 sqM) Glucose 114 H (74-99) mg/dL Plasma Lactic Acid Bryce 0.9 (0.7-2.0) mmol/L Calcium 9.5 (8.4-10.2) mg/dL Phosphorus 1.8 L (2.5-4.5) mg/dL Magnesium 1.6 (1.6-2.3) mg/dL Total Bilirubin 0.8 (0.2-1.3) mg/dL AST 26 (14-36) U/L ALT 19 (4-34) U/L Alkaline Phosphatase 79 (38-126) U/L Total Protein 7.1 (6.3-8.2) g/dL Albumin 4.4 (3.5-5.0) g/dL Amylase 51 (30-110) U/L Lipase 44 (23-300) U/L Urine Color Urine Appearance (Clear) Urine pH (5.0-8.0) Ur Specific [place] (1.001-1.035) Urine Protein (Negative) Urine Glucose (UA) (Negative) Urine Ketones (Negative) Urine Blood (Negative) Urine Nitrite (Negative) Urine Bilirubin (Negative) Urine Urobilinogen (<2.0) mg/dL Ur Leukocyte Esterase (Negative) Urine RBC (0-5) /hpf Urine WBC (0-5) /hpf Ur Squamous Epith Cells (0-4) /hpf Urine Mucus (None) /hpf Disposition Clinical Impression: Abdominal pain, History of Albert-en-Y gastric bypass Disposition: ADMITTED IP TO THIS [facility] Condition: Good Is patient prescribed a controlled substance at d/c from ED?: No Decision to Admit Reason: Admit from EC Decision Date: 11/29/23 Decision Time: 12:37
[2023-11-29] MEDS: HYDROmorphone 0.5 MG/0.5 ML SYRINGE IVP STA (11:32)
[2023-11-29 11:38] LABS: Anisocytosis Slight; Basophils % (A) 0 %; Eosinophils % (A) 1 %; HGB 13.2 gm/dL (11.4-16.0); Lymphocytes % (A) 12 %; MCHC 32.3 g/dL (31.0-37.0); MCV 86.8 fL (80.0-100.0); Mean Platelet Volume 7.6; Monocytes # (A) 0.3 k/uL (0-1.0); Monocytes % (A) 3 %; Neutrophils # (A) 7.3 k/uL (1.3-7.7); Neutrophils % (A) 83 %; Platelet Count 274 k/uL (150-450); RBC 4.72 m/uL (3.80-5.40); WBC 8.8 k/uL (3.8-10.6)
[2023-11-29 11:56] LABS: Appearance,Urine Clear (Clear); Bilirubin,Urine Negative (Negative); Blood,Urine Negative (Negative); Color,Urine Colorless; Glucose,Urine (UA) Negative (Negative); Ketones,Urine Negative (Negative); Leukocyte Esterase,Urine Small (Negative); Mucus,Urine Rare /hpf; Nitrite,Urine Negative (Negative); Protein,Urine Trace (Negative); RBC,Urine 1 /hpf (0-5); Squamous Epithelial Cell,Urine 10 /hpf (0-4); Urobilinogen,Urine <2.0 mg/dL (<2.0); WBC,Urine 3 /hpf (0-5)
[2023-11-29] MEDS: ONDANSETRON 4 MG/2 ML VIAL IVP STA (11:58)
[2023-11-29 12:01] LABS: INR 0.9 (<1.2)
[2023-11-29 12:02] LABS: Partial Thromboplastin Time 24.3 sec (22.0-30.0)
[2023-11-29 12:04] LABS: ALT 19 U/L (4-34); AST 26 U/L (14-36); African American GFR (CKD) >90 (>60 ml/min/1.73 sqM); Albumin 4.4 g/dL (3.5-5.0); Alkaline Phosphatase 79 U/L (38-126); Amylase 51 U/L (30-110); Anion Gap 8 mmol/L; Blood Urea Nitrogen 6 mg/dL (7-17); Calcium 9.5 mg/dL (8.4-10.2); Carbon Dioxide 28 mmol/L (22-30); Chloride 106 mmol/L (98-107); Glucose 114 mg/dL (74-99); Lipase 44 U/L (23-300); Magnesium 1.6 mg/dL (1.6-2.3); Non-African American GFR(CKD) >90 (>60 ml/min/1.73 sqM); Phosphorus 1.8 mg/dL (2.5-4.5); Potassium 3.7 mmol/L (3.5-5.1); Sodium 142 mmol/L (137-145); Total Bilirubin 0.8 mg/dL (0.2-1.3); Total Protein 7.1 g/dL (6.3-8.2)
--- NOTE | 2023-11-29 12:04 | CT ---
EXAMINATION TYPE: CT abdomen pelvis w con DATE OF EXAM: 11/29/2023 COMPARISON: 11/26/2025 HISTORY: ABD PAIN CT DLP: 532.1 mGycm Automated exposure control for dose reduction was used. TECHNIQUE: Helical acquisition of images was performed from the lung bases through the pelvis. CONTRAST: Performed without Oral Contrast and with IV Contrast, patient injected with 100 mL of Isovue 300. FINDINGS: LUNG BASES: Lung bases are clear. There is a persistent small to moderate hiatal hernia. There are postsurgical changes of a Albert-en-Y gastric bypass procedure stable compared to previous. T here is diffuse thickening of the wall of the biliopancreatic limb unchanged compared to prior study. There is no bowel obstruction. There is some new diffuse hazy density in the mesentery adjacent to th e stomach remnant indicated imaging surrounding inflammation but there is no discrete abscess. There surgical absence of the gallbladder but no biliary ductal dilatation There is no focal mass or organomegaly involving the liver, pancreas, spleen or adrenal glands. There is no solid renal mass or hydronephrosis. The cavity abdominal aorta is normal. There is no free intraperitoneal air or fluid. There is no pelvic mass or adenopathy. The osseous structures are intact. IMPRESSION: 1. Post surgical changes of gastric bypass with Albert-en-Y procedure. 2. Persistent thickening of the biliopancreatic limb. 3. Interval development of inflammatory changes within the anterior mesentery adjacent to the stomach remnant but no discrete abscess. 4. Cholecystectomy. 5. No bowel obstruction, free intraperitoneal air or fluid.
[2023-11-29 12:10] LABS: Specific Gravity,Urine >1.050 (1.001-1.035)
[2023-11-29] MEDS ORDERED: NALOXONE 0.4 MG/ML 1 ML VIAL IV PRN (12:38)
[2023-11-29] MEDS: FAMOTIDINE 20 MG/2 ML VIAL IV STA (12:59)
[2023-11-29] MEDS: HYDROmorphone 0.5 MG/0.5 ML SYRINGE IVP PRN (14:15)
--- NOTE | 2023-11-29 16:23 | P.GSHP ---
History of Present Illness H&P Date: 11/29/23 CHIEF COMPLAINT: Abdominal pain HISTORY OF PRESENT ILLNESS: This is a 58-year-old female with a known surgical history of Albert-en-Y gastric bypass and cholecystectomy. She presents to the hospital with complaints of abdominal pain from the epigastric area down to the pelvic area. She describes the pain as a burning sensation and aching sensation. She does have a past history of peptic ulcer disease her last EGD was in July 2023. Results showed linear erosion of the distal esophagus and small hiatal hernia. Albert-en-Y anastomosis appeared normal. Patient had CT scan abdomen pelvis that reported persistent thickening of the biliopancreatic limb. Interval development of inflammatory changes within the anterior mesentery adjacent to the stomach remnant but no discrete abscess. No bowel obstruction or free intraperitoneal air or fluid. PAST MEDICAL HISTORY: See list. PAST SURGICAL HISTORY: See list. MEDICATIONS: See list. ALLERGIES: See list. SOCIAL HISTORY: No illicit drug use. REVIEW OF SYSTEMS: CONSTITUTIONAL: Denies fever or chills. HEENT: Denies blurred vision, vision changes, or eye pain. Denies hemoptysis ENDOCRINE: Denies heat or cold intolerance. CARDIOVASCULAR: Denies chest pain or pressure. RESPIRATORY: No shortness of breath. GASTROINTESTINAL: Please refer to HPI otherwise unremarkable NEURO: Denies history of seizures. PSYCH: No depression or suicidal ideation HEMATOLOGIC: Denies bleeding disorders. LYMPHATIC: The patient denies any lumps and bumps around the neck. GENITOURINARY: Denies any blood in urine or increased urinary frequency. MUSCULOSKELETAL: Denies myalgias. Denies joint swelling. Denies decreased range of motion beyond patients baseline. SKIN: Denies pruitis. Denies rash. PHYSICAL EXAM: VITAL SIGNS: Reviewed GENERAL: Well-developed in no acute distress. HEENT: No sclera icterus. Extraocular movements grossly intact. Moist buccal mucosa. Head is atraumatic, normocephalic. Hears conversational speech. No nasal drainage. NECK: Supple without lymphadenopathy. CHEST: Non-labored respirations and equal bilateral excursions. CARDIOVASCULAR: Palpable 2+ radial pulses. ABDOMEN: Soft. Nondistended. Epigastric tenderness MUSCULOSKELETAL: No clubbing or cyanosis. NEUROLOGIC: No focal or lateralizing signs. Cranial nerves II through XII grossly intact. PSYCH: Appropriate affect. Alert and oriented to person, place and time. SKIN: Well perfused. Good skin turgor. LABORATORY DATA: WBC is 8.8 Hgb 13.2 platelets 274 Sodium is 142 potassium 3.7 creatinine 0.59 Phosphorus is 1.8 IMAGING: CT scan abdomen pelvis postsurgical change of gastric bypass with Albert-en-Y procedure. Persistent thickening of the biliopancreatic limb. Interval development of inflammatory changes within the anterior mesentery adjacent to the stomach remnant but no discrete abscess. Cholecystectomy. No bowel obstruction, free intraperitoneal air or fluid ASSESSMENT: 1. Epigastric abdominal pain with diffuse pain 2. History of Albert-en-Y 3. History of perforated gastrojejunal ulcer with surgical repair 4. Hypomagnesemia 5. Hypophosphatemia PLAN: -Patient scheduled for EGD tomorrow with Dr. Stewart -N.p.o. after midnight -Full liquid diet today -Replace magnesium and phosphorus -Repeat labs in a.m. -IV Protonix twice a day and Carafate 1 g 3 times daily added Physician Granite Installer note has been reviewed by physician. Signing provider agrees with the documented findings, assessment, and plan of care. Past Medical History Past Medical History: Chest Pain / Angina, COPD, Eye Disorder, Fibromyalgia, GERD/Reflux, Thyroid Disorder Additional Past Medical History / Comment(s): 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 Migraines, hiatal hernia, thyroid nodule. Gastrojejunal perforation, pneumoperitoneum, generalized arthritis. upper abdominal pain due to hernia, glaucoma. History of Any Multi-Drug Resistant Organisms: None Reported Past Surgical History: Bariatric Surgery, Breast Surgery, Cholecystectomy, Uterine Ablation Additional Past Surgical History / Comment(s): EXPLORATORY OF AUGUST 27, HERNIA BOWEL HORVATH SPACE DEFECT @[place] 08-27-19. 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 Surgery for pneumoperitoneum 04/2018 @ [facility]. Adhesiolysis 09/2018. Colonoscopy with upper endoscopy 2017. Gastric sleeve (03/2016). ulcer repair Past Anesthesia/Blood Transfusion Reactions: Motion Sickness, Postoperative Nausea & Vomiting (PONV) Additional Past Anesthesia/Blood Transfusion Reaction / Comment(s): Has never received blood Past Psychological History: Anxiety Smoking Status: Former smoker Past Alcohol Use History: Rare Past Drug Use History: None Reported - Past Family History Mother Additional Family Medical History / Comment(s): Emphysema. Maternal great aunt had breast cancer. Father Additional Family Medical History / Comment(s): airline transport pilot w/ plane crash- age 22. Paternal grandmother had breast cancer. Medications and Allergies Home Medications Medication Instructions Recorded Confirmed Type SUMAtriptan succinate [Imitrex] 100 mg PO DAILY PRN #30 tab 12/20/21 11/29/23 Rx ALPRAZolam [ALPRAZolam XR] 0.5 mg PO BID PRN 04/13/22 11/29/23 History Levothyroxine Sodium [Synthroid] 37.5 mcg PO HS 04/13/22 11/29/23 History Fluticasone/Umeclidin/Vilanter 1 puff INHALATION RT-DAILY 05/02/22 11/29/23 History [Trelegy Ellipta 100-62.5-25] Pantoprazole [Protonix] 40 mg PO BID #60 tab 02/07/23 11/29/23 Rx Albuterol Sulfate [Proair Hfa] 2 puff INHALATION RT-Q6H PRN 11/27/23 11/29/23 History Butalb/Acetaminophen/Caffeine 1 cap PO BID PRN 11/27/23 11/29/23 History [Fioricet 50-300-40 mg Capsule] Famotidine [Pepcid] 20 mg PO HS 11/27/23 11/29/23 History Olmesartan [Benicar] 20 mg PO DAILY@1200 11/27/23 11/29/23 History Ondansetron Odt [Zofran Odt] 4 mg PO TID PRN 11/27/23 11/29/23 History Sucralfate [Carafate] 1 gm PO BID 11/27/23 11/29/23 History modafiniL [Provigil] 200 mg PO BID PRN 11/27/23 11/29/23 History Allergies Allergy/AdvReac Type Severity Reaction Status Date / Time ibuprofen [From Motrin] AdvReac due to Verified 11/29/23 11:19 ulcers latex AdvReac states Verified 11/29/23 11:19 "feels like chest tightens" scopolamine AdvReac contraindictated Verified 11/29/23 11:19 with glaucoma Surgical - Exam Vital Signs Temp Pulse Resp BP Pulse Ox 98.3 F 67 20 152/89 98 11/29/23 10:44 11/29/23 10:44 11/29/23 10:44 11/29/23 10:44 11/29/23 10:44 Results - Labs 11/29/23 11:21 11/29/23 11:21 Abnormal Lab Results - Last 24 Hours (Table) 11/29/23 11/29/23 11/29/23 Range/Units 11:21 11:21 11:21 RDW 19.0 H (11.5-15.5) % BUN 6 L (7-17) mg/dL Glucose 114 H (74-99) mg/dL Phosphorus 1.8 L (2.5-4.5) mg/dL Ur Specific [place] >1.050 H (1.001-1.035) Urine Protein Trace H (Negative) Ur Leukocyte Esterase Small H (Negative) Ur Squamous Epith Cells 10 H (0-4) /hpf Urine Mucus Rare H (None) /hpf Diabetes panel 11/29/23 Range/Units 11:21 Sodium 142 (137-145) mmol/L Potassium 3.7 (3.5-5.1) mmol/L Chloride 106 (98-107) mmol/L Carbon Dioxide 28 (22-30) mmol/L BUN 6 L (7-17) mg/dL Creatinine 0.59 (0.52-1.04) mg/dL Glucose 114 H (74-99) mg/dL Calcium 9.5 (8.4-10.2) mg/dL AST 26 (14-36) U/L ALT 19 (4-34) U/L Alkaline Phosphatase 79 (38-126) U/L Total Protein 7.1 (6.3-8.2) g/dL Albumin 4.4 (3.5-5.0) g/dL Calcium panel 11/29/23 Range/Units 11:21 Calcium 9.5 (8.4-10.2) mg/dL Phosphorus 1.8 L (2.5-4.5) mg/dL Albumin 4.4 (3.5-5.0) g/dL Pituitary panel 11/29/23 Range/Units 11:21 Sodium 142 (137-145) mmol/L Potassium 3.7 (3.5-5.1) mmol/L Chloride 106 (98-107) mmol/L Carbon Dioxide 28 (22-30) mmol/L BUN 6 L (7-17) mg/dL Creatinine 0.59 (0.52-1.04) mg/dL Glucose 114 H (74-99) mg/dL Calcium 9.5 (8.4-10.2) mg/dL Adrenal panel 11/29/23 Range/Units 11:21 Sodium 142 (137-145) mmol/L Potassium 3.7 (3.5-5.1) mmol/L Chloride 106 (98-107) mmol/L Carbon Dioxide 28 (22-30) mmol/L BUN 6 L (7-17) mg/dL Creatinine 0.59 (0.52-1.04) mg/dL Glucose 114 H (74-99) mg/dL Calcium 9.5 (8.4-10.2) mg/dL Total Bilirubin 0.8 (0.2-1.3) mg/dL AST 26 (14-36) U/L ALT 19 (4-34) U/L Alkaline Phosphatase 79 (38-126) U/L Total Protein 7.1 (6.3-8.2) g/dL Albumin 4.4 (3.5-5.0) g/dL
[2023-11-29] MEDS: POTAS-SOD-PHOS 278-164-250 MG 1 EACH PACKET PO SCH (17:25)
[2023-11-29] MEDS: SODIUM CHLORIDE 0.9% 1,000 ML IV SCH (17:25)
[2023-11-29] MEDS: MAGNESIUM SULFATE-D5W PMX 1 GM in DEXTROSE/WATER 1 100ML.BAG IVPB SCH (17:25)
[2023-11-29] MEDS: ONDANSETRON 4 MG/2 ML VIAL IVP PRN (17:26)
[2023-11-29] MEDS: SUCRALFATE 1 GM TAB PO SCH (17:26)
[2023-11-29] MEDS: PANTOPRAZOLE 40 MG/10 ML VIAL IVP SCH (21:03)
[2023-11-29] MEDS: METOCLOPRAMIDE 5 MG/ML 2 ML VIAL IVP PRN (21:03)
[2023-11-30 08:46] LABS: HCT 36.1 % (37.2-46.3); HGB 11.7 g/dL (12.0-15.0); MCH 27.7 pg (27.0-32.0); MCHC 32.4 g/dL (32.0-37.0); MCV 85.5 FL (80.0-97.0); Mean Platelet Volume 10.1 FL (9.5-12.2); NRBC Per 100 WBC 0 X 10*3/uL (0.00-0.01); Platelet Count 255 X 10*3/uL (140-440); RBC 4.22 X 10*6/uL (4.10-5.20); RDW 20.7 % (11.5-14.5)
[2023-11-30 08:53] LABS: BUN/Creat Ratio 6.86 Ratio (12.00-20.00); Blood Urea Nitrogen 4.8 mg/dL (9.0-27.0); Carbon Dioxide 26.5 mmol/L (21.6-31.8); Chloride 106 mmol/L (96-109); Glucose 103 mg/dL (70-110); Magnesium 2.1 mg/dL (1.5-2.4); Sodium 143 mmol/L (135-145)
[2023-11-30 08:54] LABS: Phosphorus 1.5 mg/dL (2.4-5.1)
[2023-11-30] MEDS ORDERED: PROPOFOL 10 MG/ML 20 ML VIAL IV ONE (13:40)
[2023-11-30] MEDS ORDERED: LIDOCAINE 2% (PF) 20 MG/ML 5 ML VIAL ONE (13:40)
[2023-11-30] MEDS: IV FLUID CONTINUATION 900 ML IV ONE (13:40)
[2023-11-30] MEDS ORDERED: DEXAMETHASONE SOD PHOSPHATE 4 MG/ML 1 ML VIAL ONE (13:40)
--- NOTE | 2023-12-01 07:52 | P.PCN ---
Date of Procedure: 11/30/23 Description of Procedure: PREOPERATIVE DIAGNOSES: 1. Perforated gastric ulcer 2. Nausea and vomiting, intractable. 3. History of gastric bypass. 4. Intractable abdominal pain 5. Abnormal CT scan, abdomen, epigastric inflammation POSTOPERATIVE DIAGNOSES: 1. Acute perforated gastrojejunal ulcer with obstruction and bleeding 2. Gastrointestinal bleeding due to perforated ulcer 3. Diaphragmatic hiatal hernia, incarcerated PROCEDURE PERFORMED: Esophagogastrojejunoscopy. SURGEON: Nu Stewart MD ANESTHESIA: MAC. INDICATIONS: The patient is a 58-year-old female with prior Albert-en-Y gastric bypass approximately 5 to 10 years ago. She has personal history of prior gastric ulcer perforations. Due to her intense epigastric pain, intractable nausea and vomiting, and abnormal CT scan findings urgent upper endoscopy was described. Upper endoscopy was offered for further evaluation and management. DESCRIPTION: Patient was brought to the endoscopy suite and laid in the left lateral decubitus position. After adequate IV sedation, a bite block was placed. An Olympus gastroscope was passed along the posterior oropharynx down to the distal esophagus where the squamocolumnar junction was found at approximately 38 cm from the incisors. Diaphragmatic hiatal hernia with incarceration of the gastric pouch was found. Acute perforation of gastrojejunal ulcer with recent fibrinous cap was found including active bleeding and partial obstruction of her anastomosis. The scope was advanced 60 cm from the incisors. No foreign body was found. The GI tract was desufflated. The patient tolerated the procedure well. FINDINGS: 1. Diaphragmatic hiatal hernia, 3 cm, with incarceration of the gastric pouch 2. Acute perforation of gastrojejunal ulcer, 8 mm, with recent fibrinous cap 3. Active bleeding and partial obstruction of anastomosis, 10 mm. 4. No foreign body found along the anastomosis. PLAN: 1. Start Carafate 1 g 3 times daily and Protonix 40 mg twice daily for acute perforation gastrojejunal ulcer with bleeding and partial obstruction 2. Schedule pain medication 3. IV fluid hydration and liquid diet only 4. Will need complete gastrectomy of her pouch due to recurrent perforated ulcers 5. Recommend inpatient admission for greater than 2 days due to acute findings
[2023-12-01] MEDS ORDERED: SUMAtriptan succinate 50 MG TAB PO PRN (07:54)
[2023-12-01] MEDS ORDERED: ALBUTEROL NEBULIZED 2.5 MG/3 ML INHALATION PRN (07:54)
[2023-12-01] MEDS ORDERED: BUTALB/APAP/CAFF 50-325-40MG TAB PO PRN (07:54)
[2023-12-01] MEDS: ONDANSETRON 4 MG/2 ML VIAL IVP SCH (08:01)
[2023-12-01] MEDS: SODIUM CHLORIDE 0.9% 1,000 ML IV ONE (08:39)
[2023-12-01] MEDS: METOCLOPRAMIDE 5 MG/ML 2 ML VIAL IVP SCH (08:40)
[2023-12-01] MEDS: LOSARTAN 50 MG TAB PO SCH (11:53)
[2023-12-01] MEDS: SODIUM PHOSPHATE 30 MMOL in DEXTROSE 5% IN WATER 250 ML IVPB ONE (11:53)
--- NOTE | 2023-12-01 17:30 | P.PN ---
Subjective patient seen and evaluated bedside. She has mild abdominal pain no nausea at this time Objective - Vital Signs Vital signs: Vital Signs Temp 98.7 F 12/01/23 13:15 Pulse 83 12/01/23 13:15 Resp 17 12/01/23 13:15 BP 126/72 12/01/23 13:15 Pulse Ox 98 12/01/23 13:15 FiO2 Intake & Output 11/30/23 12/01/23 12/01/23 18:59 06:59 18:59 Intake Total 1000 Balance 1000 Intake: IV 100 Intake, IV Titration 900 Amount Sodium Chloride 0.9% 1, 900 000 ml @ 75 mls/hr IV . [id number] [facility] Rx#:[id number] Other: # Voids 3 3 - Labs CBC & Chem 7: 11/30/23 06:15 11/30/23 06:15
[2023-12-01] MEDS: LEVOTHYROXINE 75 MCG TAB PO SCH (20:59)
[2023-12-02 08:26] LABS: African American GFR (CKD) >90 (>60 ml/min/1.73 sqM); Anion Gap 5 mmol/L; Blood Urea Nitrogen 3 mg/dL (7-17); Calcium 7.6 mg/dL (8.4-10.2); Carbon Dioxide 24 mmol/L (22-30); Chloride 112 mmol/L (98-107); Glucose 79 mg/dL (74-99); Non-African American GFR(CKD) >90 (>60 ml/min/1.73 sqM); Phosphorus 2.3 mg/dL (2.5-4.5); Potassium 3.1 mmol/L (3.5-5.1); Sodium 141 mmol/L (137-145)
[2023-12-02] MEDS: LACTATED RINGERS 1,000 ML IV SCH (08:40)
[2023-12-02] MEDS ORDERED: SODIUM PHOSPHATE 60 MMOL in DEXTROSE 5% IN WATER 250 ML IVPB ONE (13:10)
[2023-12-02] MEDS ORDERED: Phosphorus Replacement Protoco 1 EACH MISC MISCELLANE PRN ×2 (13:10→13:12)
[2023-12-02] MEDS ORDERED: Potassium Replacement Protocol 1 EACH MISC MISCELLANE PRN (13:10)
--- NOTE | 2023-12-02 13:16 | P.PN ---
Subjective Progress Note Date: 12/02/23 CHIEF COMPLAINT: Acute gastric ulcer perforation HISTORY OF PRESENT ILLNESS: The patient is a 58-year-old female admitted with intractable epigastric pain including intractable nausea and vomiting. She had acute gastrojejunal perforation with bleeding and partial obstruction. She reports improvement of her symptoms for acute perforated gastrojejunal ulcer with bleeding and partial obstruction. Potassium and Phosphate continues to be low. ROS: No fevers or chills. No new chest pain. No productive sputum PHYSICAL EXAM: VITAL SIGNS: Reviewed CONSTITUTIONAL: Well developed and in no acute distress. EYES: Conjuctivae without sclera icterus. Extraocular movements grossly intact. HEAD, EARS, NOSE, THROAT: Moist buccal mucosa. Head is atraumatic, normocephalic. Hears conversational speech. No nasal drainage. RESPIRATORY: Non-labored respirations and equal bilateral excursions. CARDIOVASCULAR: Palpable 2+ radial pulses. ABDOMEN: Peritonitis. Decreased tenderness MUSCULOSKELETAL: No gross deformity of the lower extremities noted. No clubbing. No cyanosis. SKIN: Good skin turgor. Well perfused. NEUROLOGIC: Cranial nerves II through XII grossly intact. No focal or lateralizing signs. PSYCH: Appropriate affect. Alert and oriented to person, place and time. CLINICAL LABS: Reviewed. Potassium and phosphate low. ASSESSMENT: 1. Acute gastrojejunal perforation with bleeding and partial obstruction 2. Gastrointestinal bleed 3. Hypophosphatemia 4. Hypokalemia PLAN: 1. Phosphorus replacement protocol due to COPD and pulmonary function 2. Replacement of potassium 3. Advance to ground diet 4. Re-check CBC, BMP Objective - Vital Signs Vital signs: Vital Signs Temp 97.8 F 12/02/23 07:15 Pulse 61 12/02/23 07:15 Resp 15 12/02/23 07:15 BP 122/69 12/02/23 07:15 Pulse Ox 95 12/02/23 07:15 FiO2 Intake & Output 12/01/23 12/02/23 12/02/23 18:59 06:59 18:59 Other: # Voids 2 2 - Labs CBC & Chem 7: 11/30/23 06:15 12/02/23 06:46 Labs: Abnormal Lab Results - Last 24 Hours (Table) 12/02/23 Range/Units 06:46 Potassium 3.1 L (3.5-5.1) mmol/L Chloride 112 H (98-107) mmol/L BUN 3 L (7-17) mg/dL Calcium 7.6 L (8.4-10.2) mg/dL Phosphorus 2.3 L (2.5-4.5) mg/dL
[2023-12-02] MEDS: POTASSIUM CHLORIDE 10 MEQ in WATER FOR INJECTION 1 100ML.BAG IVPB SCH (13:26)
[2023-12-02] MEDS: MAGNESIUM SULFATE-D5W PMX 1 GM in DEXTROSE/WATER 1 100ML.BAG IVPB SCH (14:56)
[2023-12-02] MEDS: SODIUM PHOSPHATE 60 MMOL in DEXTROSE 5% IN WATER 250 ML IVPB ONE (16:00)
[2023-12-02] MEDS: ALPRAZolam 0.25 MG TAB PO PRN (17:44)
[2023-12-02] MEDS: METOCLOPRAMIDE 5 MG/ML 2 ML VIAL IVP STA (18:32)
[2023-12-02] MEDS ORDERED: PROCHLORPERAZINE INJ 10 MG/2 ML VIAL IVP PRN (22:05)
[2023-12-02] MEDS: TRIMETHOBENZAMIDE 100 MG/ML 2 ML VIAL IM PRN (22:50)
[2023-12-03] MEDS: POTASSIUM CHLORIDE 10 MEQ in WATER FOR INJECTION 1 100ML.BAG IVPB SCH (05:21)
--- NOTE | 2023-12-03 07:58 | P.PN ---
Subjective Progress Note Date: 12/03/23 CHIEF COMPLAINT: Acute gastric ulcer perforation HISTORY OF PRESENT ILLNESS: The patient is a 58-year-old female admitted with intractable epigastric pain including intractable nausea and vomiting. She had acute gastrojejunal perforation with bleeding and partial obstruction. Currently she had intractable nausea and vomiting again. She had trial of pork and required multiple antiemetics. ROS: No fevers or chills. No new chest pain. No productive sputum PHYSICAL EXAM: VITAL SIGNS: Reviewed CONSTITUTIONAL: Well developed and in no acute distress. EYES: Conjuctivae without sclera icterus. Extraocular movements grossly intact. HEAD, EARS, NOSE, THROAT: Moist buccal mucosa. Head is atraumatic, normocephalic. Hears conversational speech. No nasal drainage. RESPIRATORY: Non-labored respirations and equal bilateral excursions. CARDIOVASCULAR: Palpable 2+ radial pulses. ABDOMEN: Peritonitis. Decreased tenderness MUSCULOSKELETAL: No gross deformity of the lower extremities noted. No clubbing. No cyanosis. SKIN: Good skin turgor. Well perfused. NEUROLOGIC: Cranial nerves II through XII grossly intact. No focal or lateralizing signs. PSYCH: Appropriate affect. Alert and oriented to person, place and time. CLINICAL LABS: Reviewed. Labs are pending ASSESSMENT: 1. Acute gastrojejunal perforation with bleeding and partial obstruction 2. Gastrointestinal bleed 3. Hypophosphatemia 4. Hypokalemia PLAN: 1. Awaiting repeat potassium and phosphate levels 2. Diet downgraded to full liquid diet which will continue upon discharge 3. Disposition pending correction of electrolyte dyscrasia Objective - Vital Signs Vital signs: Vital Signs Temp 98.6 F 12/03/23 01:10 Pulse 71 12/03/23 01:10 Resp 13 12/03/23 01:10 BP 118/64 12/03/23 01:10 Pulse Ox 93 L 12/03/23 01:10 FiO2 Intake & Output 12/02/23 12/03/23 12/03/23 18:59 06:59 18:59 Output Total 175 Balance -175 Output: Emesis 175 Other: # Voids 2 4 - Labs CBC & Chem 7: 11/30/23 06:15 12/02/23 06:46 Labs: Abnormal Lab Results - Last 24 Hours (Table) 12/02/23 Range/Units 06:46 Potassium 3.1 L (3.5-5.1) mmol/L Chloride 112 H (98-107) mmol/L BUN 3 L (7-17) mg/dL Calcium 7.6 L (8.4-10.2) mg/dL Phosphorus 2.3 L (2.5-4.5) mg/dL
[2023-12-03 08:38] LABS: Basophils # (A) 0.02 X 10*3/uL (0.00-0.10); Basophils % (A) 0.3 %; Eosinophils # (A) 0 X 10*3/uL (0.04-0.35); Eosinophils % (A) 0 %; HCT 36.4 % (37.2-46.3); HGB 11.5 g/dL (12.0-15.0); Lymphocytes # (A) 0.78 X 10*3/uL (0.90-5.00); Lymphocytes % (A) 10.2 %; MCHC 31.6 g/dL (32.0-37.0); MCV 88.8 FL (80.0-97.0); Mean Platelet Volume 10.3 FL (9.5-12.2); Monocytes # (A) 0.37 X 10*3/uL (0.20-1.00); Monocytes % (A) 4.8 %; NRBC Per 100 WBC 0 X 10*3/uL (0.00-0.01); Neutrophils # (A) 6.46 X 10*3/uL (1.80-7.70); Neutrophils % (A) 84.3 %; Platelet Count 297 X 10*3/uL (140-440); RDW 21.5 % (11.5-14.5); WBC 7.66 X 10*3/uL (4.50-10.00)
[2023-12-03 08:52] LABS: BUN/Creat Ratio 6.43 Ratio (12.00-20.00); Blood Urea Nitrogen 4.5 mg/dL (9.0-27.0); Calcium 8.4 mg/dL (8.7-10.3); Carbon Dioxide 25.2 mmol/L (21.6-31.8); Chloride 106 mmol/L (96-109); Glucose 113 mg/dL (70-110); Magnesium 2.1 mg/dL (1.5-2.4); Phosphorus 2.9 mg/dL (2.4-5.1); Potassium 4.4 mmol/L (3.5-5.5); Sodium 142 mmol/L (135-145)
[2023-12-03 09:06] VITALS: BP 176/89; PULSE 87; RESP 15; TEMP 98.5
--- NOTE | 2023-12-03 11:14 | P.DS ---
Providers Date of admission: 11/29/23 13:00 Expected date of discharge: 12/03/23 Attending physician: Nu Stewart Primary care physician: Adam Castaneda [facility] Course: Discharge diagnosis 1. Acute perforated gastrojejunal ulcer with obstruction and bleeding 2. Gastrointestinal bleeding due to perforated ulcer 3. Diaphragmatic hiatal hernia, incarcerated 4. Hypokalemia and hypophosphatemia Hospital course The patient is a 58-year-old female with prior Albert-en-Y gastric bypass approximately 5 to 10 years ago. She has personal history of prior gastric ulcer perforations. Patient presented with epigastric abdominal pain. She is status post EGD that revealed acute perforated gastrojejunal ulcer with obstruction and bleeding and diaphragmatic hiatal hernia incarcerated. Patient's pain is controlled. She is tolerating diet. Electrolytes have been corrected. She is afebrile. She is stable for discharge. Physician Motor Vehicle Compliance Analyst note has been reviewed by physician. Signing provider agrees with the documented findings, assessment, and plan of care. Patient Condition at Discharge: Stable Plan - Discharge Summary Discharge Rx Participant: Yes New Discharge Prescriptions: New Sucralfate [Carafate] 1 gm PO ACHS #120 tablet Acetaminophen Tab [Tylenol Tab] 1,000 mg PO Q6HR PRN #30 tablet PRN Reason: Pain Continue SUMAtriptan succinate [Imitrex] 100 mg PO DAILY PRN #30 tab PRN Reason: MIGRAINES Albuterol Sulfate [Proair Hfa] 2 puff INHALATION RT-Q6H PRN PRN Reason: Shortness Of Breath modafiniL [Provigil] 200 mg PO BID PRN PRN Reason: to stay awake Olmesartan [Benicar] 20 mg PO DAILY@1200 Ondansetron Odt [Zofran ODT] 4 mg PO TID PRN PRN Reason: Nausea Levothyroxine Sodium [Synthroid] 37.5 mcg PO HS ALPRAZolam [ALPRAZolam XR] 0.5 mg PO BID PRN PRN Reason: Anxiety Fluticasone/Umeclidin/Vilanter [Trelegy Ellipta 100-62.5-25] 1 puff INHALATION RT-DAILY Pantoprazole [Protonix] 40 mg PO BID #60 tab Butalb/Acetaminophen/Caffeine [Fioricet 50-300-40 mg Capsule] 1 cap PO BID PRN PRN Reason: Migraine Headache Discontinued Sucralfate [Carafate] 1 gm PO BID Famotidine [Pepcid] 20 mg PO HS Discharge Medication List SUMAtriptan succinate [Imitrex] 100 mg PO DAILY PRN #30 tab 12/20/21 [Rx] ALPRAZolam [ALPRAZolam XR] 0.5 mg PO BID PRN 04/13/22 [History] Levothyroxine Sodium [Synthroid] 37.5 mcg PO HS 04/13/22 [History] Fluticasone/Umeclidin/Vilanter [Trelegy Ellipta 100-62.5-25] 1 puff INHALATION RT-DAILY 05/02/22 [History] Pantoprazole [Protonix] 40 mg PO BID #60 tab 02/07/23 [Rx] Albuterol Sulfate [Proair Hfa] 2 puff INHALATION RT-Q6H PRN 11/27/23 [History] Butalb/Acetaminophen/Caffeine [Fioricet 50-300-40 mg Capsule] 1 cap PO BID PRN 11/27/23 [History] Olmesartan [Benicar] 20 mg PO DAILY@1200 11/27/23 [History] Ondansetron Odt [Zofran ODT] 4 mg PO TID PRN 11/27/23 [History] modafiniL [Provigil] 200 mg PO BID PRN 11/27/23 [History] Acetaminophen Tab [Tylenol Tab] 1,000 mg PO Q6HR PRN #30 tablet 12/01/23 [Rx] Sucralfate [Carafate] 1 gm PO ACHS #120 tablet 12/01/23 [Rx] [facility]ment(s[facility] [place] [facility] - 12/05/23 2:00 pm Adam Castaneda DO [Primary Care Provider] - 1-2 days Patient Instructions/Handouts: Peptic Ulcer (DC), Abdominal Pain (ED) Activity/Diet/Wound Care/Special Instructions: Continue Full liquid diet at discharge Discharge Disposition: HOME SELF-CARE
== END 2023-12-03 12:05 | disposition home or self-care (01) | DRG 378 ==
LOC: EC 10:41 → 4SSUR 13:00 → OBSVTOIN 11-30 14:12
PROVIDERS: ADMIT Surgery Plastic and Reconstructive Surgery; ATTEND Surgery Plastic and Reconstructive Surgery
PROC: 0DJ08ZZ Inspection of Upper Intestinal Tract, Via Natural or Artificial Opening Endoscopic (ICD-10-PCS; principal; 2023-11-30 07:50)
DX: K28.2 Acute gastrojejunal ulcer with both hemorrhage and perforation (principal); K44.0 Diaphragmatic hernia with obstruction, without gangrene; J44.9 Chronic obstructive pulmonary disease, unspecified; M79.7 Fibromyalgia; F41.9 Anxiety disorder, unspecified; E87.6 Hypokalemia; E83.42 Hypomagnesemia; E83.39 Other disorders of phosphorus metabolism; Z79.899 Other long term (current) drug therapy; Z98.84 Bariatric surgery status; Z88.8 Allergy status to other drugs, medicaments and biological substances; Z91.040 Latex allergy status; Z87.891 Personal history of nicotine dependence
CPT/HCPCS: 36415; 43235; 74177; 80048; 80053; 81001; 82150; 83605; 83690; 83735; 84100; 85025; 85027; 85610; 85730; 96374; 96375; 96376; 99285

== ENCOUNTER → 2023-12-05 | Outpatient (CLI) | payer OTHER ==
[2023-12-05 15:33] VITALS: BP 157/91; PULSE 69; TEMP 98.4; BMI 23.8
--- NOTE | 2023-12-05 15:49 | P.BASOAP ---
Subjective Progress Note Date: 12/05/23 She has perforated gastric ulcers at least 4 times. Needs complete resection of gastric pouch. She reports persistent nausea. Needs EGD with dilation December 30. She is on pepcid. Increase carafate three times daily. Protonix 40 mg BID. Needs esophagojejunostomy and gastrectomy for January. Prescription. She reports persistent burning. Objective - Vital Signs Vital signs: Vital Signs Temp 98.4 F 12/05/23 15:12 Pulse 69 12/05/23 15:12 Resp BP 157/91 12/05/23 15:12 Pulse Ox FiO2 Intake & Output 12/04/23 12/05/23 12/05/23 18:59 06:59 18:59 Weight 58.967 kg Assessment/Plan Plan: Date: 12/05/23 Initial Weight: 91.308 kg Initial BMI: 36.8 Current Weight: 58.967 kg Current BMI: 23.8 Type of Surgery: Total Volume in Band: Previous Volume: Volume Removed: Volume Added: Band Size:
== END | disposition home or self-care (01) ==
LOC: BARWHC3 13:45
PROVIDERS: ATTEND Surgery Plastic and Reconstructive Surgery
DX: E66.01 Morbid (severe) obesity due to excess calories (principal); K21.9 Gastro-esophageal reflux disease without esophagitis; R11.2 Nausea with vomiting, unspecified; R10.9 Unspecified abdominal pain; K25.1 Acute gastric ulcer with perforation; Z87.891 Personal history of nicotine dependence; Z91.040 Latex allergy status; Z88.6 Allergy status to analgesic agent; Z88.8 Allergy status to other drugs, medicaments and biological substances; Z68.23 Body mass index [BMI] 23.0-23.9, adult
CPT/HCPCS: 99211

== ENCOUNTER 2023-12-31 07:33 | Day surgery (SDC) | payer OTHER ==
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
[~2023-12-31 07:33] MED LIST changes: -DEXAMETHASONE SOD PHOSPHATE 4 MG/ML 1 ML VIAL IV ONE; -HYDROmorphone 0.5 MG/0.5 ML SYRINGE IVP PRN; -ONDANSETRON 4 MG/2 ML VIAL IVP ONE
[2023-12-31] MEDS: LACTATED RINGERS 1,000 ML IV SCH (08:04)
[2023-12-31] MEDS ORDERED: PROPOFOL 10 MG/ML 20 ML VIAL IV ONE (08:13)
[2023-12-31] MEDS ORDERED: LIDOCAINE 1% INJ 10MG/ML (20 ML MDV) ONE (08:13)
[2023-12-31 08:39] VITALS: RESP 16; TEMP 97
--- NOTE | 2023-12-31 08:44 | P.PCN ---
Date of Procedure: 12/31/23 Description of Procedure: PREOPERATIVE DIAGNOSIS: Dysphagia. Nausea with vomiting. Gastric ulcer with perforation POSTOPERATIVE DIAGNOSIS: Dysphagia. Recurrent diaphragmatic hiatal hernia Esophageal ulcer Gastrojejunal stricture without chronic ulcer without perforation OPERATION: Esophagogastrojejunoscopy with balloon dilatation from 9.5 to 15 mm. SURGEON: Nu Stewart MD ANESTHESIA: MAC. INDICATIONS: The patient is a 58-year-old female who presents with a history of dysphagia, perforated gastric ulcer, including nausea and vomiting. Benefits and risks of the procedure were described. Informed consent was obtained. DESCRIPTION: The patient was brought into the endoscopy suite and laid in the left lateral decubitus position. After a timeout was confirmed, the procedure was initiated. An Olympus gastroscope was passed along the posterior oropharynx down to the distal esophagus where the squamocolumnar junction was unremarkable. The gastric pouch was entered. A gastrojejunal stricture of 12 mm was found as the adult gastroscope was 9.5 mm in size. A [employer] balloon dilator was placed through the scope. Final insufflation up to 20 mm was performed with a total of 2 minutes. The scope was advanced up to 60 cm from the incisors into the Albert limb. The mucosa of the gastrojejunal anastomosis was intact. However no chronic gastrojejunal marginal ulcer was encountered. No full-thickness injury was encountered. The GI tract was desufflated. The patient tolerated the procedure well. FINDINGS: Squamocolumnar junction unremarkable at 35 cm. Stricture of approximately 9.5 mm encountered. No chronic gastrojejunal ulceration encountered. Successful balloon dilatation to 15 mm. Acute on chronic esophageal ulcer, new, 2 cm Recurrent diaphragmatic hiatal hernia 35 to 37 cm from the incisors, 2 cm RECOMMENDATIONS: Recommend gastrectomy of gastric pouch due to recurrent ulcers with perforation Recommend conversion to esophagojejunostomy Plan - Discharge Summary Discharge Rx Participant: No New Discharge Prescriptions: Continue SUMAtriptan succinate [Imitrex] 100 mg PO DAILY PRN #30 tab PRN Reason: MIGRAINES Albuterol Sulfate [Proair Hfa] 2 puff INHALATION RT-Q6H PRN PRN Reason: Shortness Of Breath modafiniL [Provigil] 200 mg PO BID PRN PRN Reason: to stay awake Olmesartan [Benicar] 20 mg PO DAILY@1200 Ondansetron Odt [Zofran ODT] 4 mg PO TID PRN PRN Reason: Nausea Sucralfate [Carafate] 1 gm PO TID #120 tablet Levothyroxine Sodium [Synthroid] 37.5 mcg PO HS ALPRAZolam [ALPRAZolam XR] 0.5 mg PO BID PRN PRN Reason: Anxiety Fluticasone/Umeclidin/Vilanter [Trelegy Ellipta 100-62.5-25] 1 puff INHALATION RT-DAILY Pantoprazole [Protonix] 40 mg PO BID #60 tab Butalb/Acetaminophen/Caffeine [Fioricet 50-300-40 mg Capsule] 1 cap PO BID PRN PRN Reason: Migraine Headache Sucralfate [Carafate] 1 gm PO ACHS #120 tablet Unk Multi Vitamin 1 tab PO DAILY Discharge Medication List SUMAtriptan succinate [Imitrex] 100 mg PO DAILY PRN #30 tab 12/20/21 [Rx] ALPRAZolam [ALPRAZolam XR] 0.5 mg PO BID PRN 04/13/22 [History] Levothyroxine Sodium [Synthroid] 37.5 mcg PO HS 04/13/22 [History] Fluticasone/Umeclidin/Vilanter [Trelegy Ellipta 100-62.5-25] 1 puff INHALATION RT-DAILY 05/02/22 [History] Pantoprazole [Protonix] 40 mg PO BID #60 tab 02/07/23 [Rx] Albuterol Sulfate [Proair Hfa] 2 puff INHALATION RT-Q6H PRN 11/27/23 [History] Butalb/Acetaminophen/Caffeine [Fioricet 50-300-40 mg Capsule] 1 cap PO BID PRN 11/27/23 [History] Olmesartan [Benicar] 20 mg PO DAILY@1200 11/27/23 [History] Ondansetron Odt [Zofran ODT] 4 mg PO TID PRN 11/27/23 [History] modafiniL [Provigil] 200 mg PO BID PRN 11/27/23 [History] Sucralfate [Carafate] 1 gm PO ACHS #120 tablet 12/01/23 [Rx] Sucralfate [Carafate] 1 gm PO TID #120 tablet 12/05/23 [Rx] Unk Multi Vitamin 1 tab PO DAILY 12/25/23 [History] Follow up Appointment(s)/Referral(s): [facility] [NON-STAFF] - 01/23/24 Patient Instructions/Handouts: Esophageal Dilation (GEN) Activity/Diet/Wound Care/Special Instructions: Diet as tolerated Discharge Disposition: HOME SELF-CARE
[2023-12-31 09:29] VITALS: BP 131/79; PULSE 60
== END 2023-12-31 09:17 | disposition home or self-care (01) ==
LOC: ORWHC2ENDO 07:33
PROVIDERS: ATTEND Surgery Plastic and Reconstructive Surgery
DX: K21.00 Gastro-esophageal reflux disease with esophagitis, without bleeding (principal); K25.5 Chronic or unspecified gastric ulcer with perforation; K44.9 Diaphragmatic hernia without obstruction or gangrene; K22.10 Ulcer of esophagus without bleeding; J44.9 Chronic obstructive pulmonary disease, unspecified; M79.7 Fibromyalgia; Z90.49 Acquired absence of other specified parts of digestive tract; Z90.89 Acquired absence of other organs; Z98.890 Other specified postprocedural states; Z79.899 Other long term (current) drug therapy; Z80.3 Family history of malignant neoplasm of breast; Z79.890 Hormone replacement therapy
CPT/HCPCS: 43249; J2001; J2704; C1726

== ENCOUNTER → 2024-01-09 | Outpatient (CLI) | payer OTHER ==
[2024-01-09 13:35] VITALS: BP 148/92; PULSE 96; TEMP 98.2; BMI 24.6
--- NOTE | 2024-01-09 14:02 | P.BASOAP ---
Subjective Progress Note Date: 01/09/24 Has referred pain from back adding burning sensation to abdomen. She has not seen a pain specialist. Plan for referral to pain specialist. She is on maximal prescription for ulcers. Esophageal ulcers were found. Plan for pain referral. Needs esophagojejunal reconstruction. Objective - Vital Signs Vital signs: Vital Signs Temp 98.2 F 01/09/24 13:07 Pulse 96 01/09/24 13:07 Resp BP 148/92 01/09/24 13:07 Pulse Ox FiO2 Intake & Output 01/08/24 01/09/24 01/09/24 18:59 06:59 18:59 Weight 57.153 kg Assessment/Plan Plan: Date: 01/09/24 Initial Weight: 91.308 kg Initial BMI: 39.3 Current Weight: 57.153 kg Current BMI: 24.6 Type of Surgery: Total Volume in Band: Previous Volume: Volume Removed: Volume Added: Band Size:
== END ==
LOC: BARWHC3 12:56
PROVIDERS: ATTEND Surgery Plastic and Reconstructive Surgery
DX: E66.01 Morbid (severe) obesity due to excess calories (principal); R10.9 Unspecified abdominal pain; M54.50 Low back pain, unspecified; K22.10 Ulcer of esophagus without bleeding; Z98.890 Other specified postprocedural states; Z98.84 Bariatric surgery status; Z90.3 Acquired absence of stomach [part of]; Z91.040 Latex allergy status; Z88.6 Allergy status to analgesic agent; Z88.8 Allergy status to other drugs, medicaments and biological substances; Z87.891 Personal history of nicotine dependence; Z68.24 Body mass index [BMI] 24.0-24.9, adult
CPT/HCPCS: 99211

== ENCOUNTER 2024-01-17 11:56 | Emergency (ER) | payer OTHER ==
--- NOTE | 2024-01-17 12:46 | ED ---
Abdominal Pain HPI - General Chief Complaint: Abdominal Pain Stated Complaint: Abdominal Pain Time Seen by Provider: 01/17/24 12:16 Source: patient, RN notes reviewed Mode of arrival: ambulatory Limitations: no limitations - History of Present Illness Initial Comments: 58-year-old female presenting with diffuse abdominal pain x 1 day. Patient has a long history with chronic abdominal pain. Patient recently had surgery on December 30 for perforated gastric ulcer. Patient also has had a pneumoperitoneum, cholecystectomy, and 2 bariatric surgeries. Patient follows closely with Dr. Stewart who is considering total gastrectomy due to chronic pain. Patient states pain is diffuse and described as burning, squeezing pain from her pubis to her diaphragm. Patient states she vomited once last night and admits nausea today. Last meal was last night. She has not taken anything at home for pain. Denies fever, diarrhea, constipation. - Related Data Home Medications Medication Instructions Recorded Confirmed ALPRAZolam [ALPRAZolam XR] 0.5 mg PO BID PRN 04/13/22 01/09/24 Levothyroxine Sodium [Synthroid] 37.5 mcg PO HS 04/13/22 01/09/24 Fluticasone/Umeclidin/Vilanter 1 puff INHALATION RT-DAILY 05/02/22 01/09/24 [Trelegy Ellipta 100-62.5-25] Albuterol Sulfate [Proair Hfa] 2 puff INHALATION RT-Q6H PRN 11/27/23 01/09/24 Butalb/Acetaminophen/Caffeine 1 cap PO BID PRN 11/27/23 01/09/24 [Fioricet 50-300-40 mg Capsule] Olmesartan [Benicar] 20 mg PO DAILY@1200 11/27/23 01/09/24 Ondansetron Odt [Zofran ODT] 4 mg PO TID PRN 11/27/23 01/09/24 modafiniL [Provigil] 200 mg PO BID PRN 11/27/23 01/09/24 Unk Multi Vitamin 1 tab PO DAILY 12/25/23 01/09/24 Olmesartan [Benicar] 20 mg PO DAILY 01/09/24 01/09/24 Previous Rx's Medication Instructions Recorded SUMAtriptan succinate [Imitrex] 100 mg PO DAILY PRN #30 tab 12/20/21 Pantoprazole [Protonix] 40 mg PO BID #60 tab 02/07/23 Sucralfate [Carafate] 1 gm PO ACHS #120 tablet 12/01/23 HYDROcodone/APAP 5-325MG [Broughton 5] 1 each PO Q6HR PRN #10 tab 01/17/24 Allergies Allergy/AdvReac Type Severity Reaction Status Date / Time latex Allergy states Verified 01/17/24 12:04 "feels like chest tightens" ibuprofen [From Motrin] AdvReac due to Verified 01/17/24 12:04 ulcers scopolamine AdvReac contraindictated Verified 01/17/24 12:04 with glaucoma Review of Systems ROS Statement: Those systems with pertinent positive or pertinent negative responses have been documented in the HPI. ROS Other: All systems not noted in ROS Statement are negative. Past Medical History Past Medical History: Chest Pain / Angina, COPD, Eye Disorder, Fibromyalgia, GERD/Reflux, Hypertension, Thyroid Disorder Additional Past Medical History / Comment(s): 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 Migraines, hiatal hernia, thyroid nodule. Gastrojejunal perforation, pneumoperitoneum, generalized arthritis. upper abdominal pain due to hernia, glaucoma. History of Any Multi-Drug Resistant Organisms: None Reported Past Surgical History: Bariatric Surgery, Breast Surgery, Cholecystectomy, Uterine Ablation Additional Past Surgical History / Comment(s): EXPLORATORY OF AUGUST 27, HERNIA BOWEL HORVATH SPACE DEFECT @[facility] 08-27-19. 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 Surgery for pneumoperitoneum 04/2018 @ [facility]. Adhesiolysis 09/2018. Colonoscopy with upper endoscopy 2017. Gastric sleeve (03/2016). ulcer repair Past Anesthesia/Blood Transfusion Reactions: Motion Sickness, Postoperative Nausea & Vomiting (PONV) Additional Past Anesthesia/Blood Transfusion Reaction / Comment(s): Has never received blood Past Psychological History: Anxiety Smoking Status: Former smoker Past Alcohol Use History: Rare Past Drug Use History: None Reported - Past Family History Mother Additional Family Medical History / Comment(s): Emphysema. Maternal great aunt had breast cancer. Father Additional Family Medical History / Comment(s): pilot steam yacht w/ plane crash- age 22. Paternal grandmother had breast cancer. General Exam Limitations: no limitations General appearance: alert, in no apparent distress Head exam: Present: atraumatic, normocephalic, normal inspection Eye exam: Present: normal appearance, PERRL, EOMI. Absent: scleral icterus, conjunctival injection, periorbital swelling ENT exam: Present: normal exam, mucous membranes moist Neck exam: Present: normal inspection. Absent: tenderness, meningismus, lymphadenopathy Respiratory exam: Present: normal lung sounds bilaterally. Absent: respiratory distress, wheezes, rales, rhonchi, stridor Cardiovascular Exam: Present: regular rate, normal rhythm, normal heart sounds. Absent: systolic murmur, diastolic murmur, rubs, gallop, clicks GI/Abdominal exam: Present: soft, tenderness (Diffuse mild tenderness in all quadrants), normal bowel sounds. Absent: distended, guarding, rebound, rigid Extremities exam: Present: normal inspection, full ROM, normal capillary refill. Absent: tenderness, pedal edema, joint swelling, calf tenderness Back exam: Present: normal inspection. Absent: CVA tenderness (R), CVA tenderness (L) Neurological exam: Present: alert, oriented X3, CN II-XII intact Psychiatric exam: Present: normal affect, normal mood Skin exam: Present: warm, dry, intact, normal color. Absent: rash Course Vital Signs 01/17/24 01/17/24 12:02 14:09 Temperature 98.1 F Pulse Rate 57 L 55 L Respiratory 20 18 Rate Blood Pressure 151/88 136/78 O2 Sat by Pulse 99 96 Oximetry Medical Decision Making - Medical Decision Making Was pt. sent in by a medical professional or institution (, PA, GAS SHOVEL OPERATOR, urgent care, hospital, or [place] health care facility...) When possible be specific @ -No Did you speak to anyone other than the patient for history (EMS, parent, family, police, friend...)? What history was obtained from this source @ -No Did you review nursing and triage notes (agree or disagree)? Why? @ -I reviewed and agree with nursing and triage notes Were old charts reviewed (outside hosp., previous admission, EMS record, old EKG, old radiological studies, urgent care reports/EKG's, [place] health care facility records)? Report findings @ -No old charts were reviewed Differential Diagnosis (chest pain, altered mental status, abdominal pain women, abdominal pain men, vaginal bleeding, weakness, fever, dyspnea, syncope, headache, dizziness, GI bleed, back pain, seizure, CVA, palpatations, mental health, musculoskeletal)? @ -Differential Abdominal Pain Women: Appendicitis, Cholecystitis, diverticulosis, ischemic bowel, pancreatitis, hepatitis, UTI, gastroenteritis, AAA, incarcerated hernia, bowel obstruction, constipation, inflammatory bowel, hepatitis, peptic ulcer disease, splenic inf arction, perforated viscus, vulvitis, ovarian torsion, PID, kidney stone, placenta abruption, this is not meant to be an all-inclusive list EKG interpreted by me (3pts min.). @ -None X-rays interpreted by me (1pt min.). @ -None done CT interpreted by me (1pt min.). @ -CT revealed urinary bladder wall thickening and partial decompressed urinary bladder, small hiatal hernia U/S interpreted by me (1pt. min.). @ -None done What testing was considered but not performed or refused? (CT, X-rays, U/S, labs)? Why? @ -None What meds were considered but not given or refused? Why? @ -None Did you discuss the management of the patient with other professionals (professionals i.e. , PA, GAS SHOVEL OPERATOR, lab, RT, psych nurse, transition social worker, long chain quiller tender, teacher, ship's electronic warfare officer, case assistant)? Give summary @ -No Was smoking cessation discussed for >3mins.? @ -No Was critical care preformed (if so, how long)? @ -No Were there social determinants of health that impacted care today? How? (Homelessness, low income, unemployed, alcoholism, drug addiction, transportation, low edu. Level, literacy, decrease access to med. care, prison, rehab)? @ -No Was there de-escalation of care discussed even if they declined (Discuss DNR or withdrawal of care, Hospice)? DNR status @ -No What co-morbidities impacted this encounter? (DM, HTN, Smoking, COPD, CAD, Cancer, CVA, ARF, Chemo, Hep., AIDS, mental health diagnosis, sleep apnea, morbid obesity)? @ -None Was patient admitted / discharged? Hospital course, mention meds given and route, prescriptions, significant lab abnormalities, going to OR and other pertinent info. @ -Patient was discharged. Patient was seen and evaluated for diffuse abdominal pain x 1 day. Patient has chronic abdominal pain and is following closely with Dr. Stewart. Vital signs are within normal limits. CT of abdomen reveals urinary bladder wall thickening and partially decompressed urinary bladder with small hiatal hernia. Lab work and urine is unremarkable. Pain controlled with IV morphine and Zofran. Patient denies any urinary symptoms at this time. Discussed that there are are no signs of emergent etiology abdominal pain. Encouraged to follow-up closely with Dr. Stewart. Strict return/alarm symptoms discussed with patient in detail and patient shows understanding and agrees. Prescribed Broughton for pain. Patient discharged in stable condition. Patient's family member is present to drive patient home. Case discussed with Dr. Finn. Undiagnosed new problem with uncertain prognosis? @ -No Drug Therapy requiring intensive monitoring for toxicity (Heparin, Nitro, Ins ulin, Cardizem)? @ -No Were any procedures done? @ -No Diagnosis/symptom? @ -Abdominal pain Acute, or Chronic, or Acute on Chronic? @ -Acute on chronic Uncomplicated (without systemic symptoms) or Complicated (systemic symptoms)? @ -Uncomplicated Side effects of treatment? @ -No Exacerbation, Progression, or Severe Exacerbation? @ -No Poses a threat to life or bodily function? How? (Chest pain, [place], [place], pneumonia, PE, COPD, DKA, ARF, appy, cholecystitis, CVA, Diverticulitis, Homicidal, Suicidal, threat to staff... and all critical care pts) @ -Low likelihood - Lab Data Result diagrams: 01/17/24 12:54 01/17/24 12:54 Lab Results 01/17/24 01/17/24 01/17/24 Range/Units 12:54 12:54 12:54 WBC 5.5 (3.8-10.6) k/uL RBC 4.99 (3.80-5.40) m/uL Hgb 14.3 (11.4-16.0) gm/dL Hct 45.2 (34.0-46.0) % MCV 90.7 (80.0-100.0) fL MCH 28.7 (25.0-35.0) pg MCHC 31.6 (31.0-37.0) g/dL RDW 15.5 (11.5-15.5) % Plt Count 272 (150-450) k/uL MPV 7.3 Neutrophils % 70 % Lymphocytes % 21 % Monocytes % 4 % Eosinophils % 2 % Basophils % 1 % Neutrophils # 3.9 (1.3-7.7) k/uL Lymphocytes # 1.1 (1.0-4.8) k/uL Monocytes # 0.2 (0-1.0) k/uL Eosinophils # 0.1 (0-0.7) k/uL Basophils # 0.1 (0-0.2) k/uL Sodium 141 (137-145) mmol/L Potassium 4.1 (3.5-5.1) mmol/L Chloride 107 (98-107) mmol/L Carbon Dioxide 30 (22-30) mmol/L Anion Gap 4 mmol/L BUN 9 (7-17) mg/dL Creatinine 0.68 (0.52-1.04) mg/dL Est GFR (CKD-EPI)AfAm >90 (>60 ml/min/1.73 sqM) Est GFR (CKD-EPI)NonAf >90 (>60 ml/min/1.73 sqM) Glucose 103 H (74-99) mg/dL Plasma Lactic Acid Bryce 1.0 (0.7-2.0) mmol/L Calcium 9.4 (8.4-10.2) mg/dL Total Bilirubin 0.7 (0.2-1.3) mg/dL AST 19 (14-36) U/L ALT 11 (4-34) U/L Alkaline Phosphatase 83 (38-126) U/L Total Protein 7.0 (6.3-8.2) g/dL Albumin 4.4 (3.5-5.0) g/dL Lipase 65 (23-300) U/L Urine Color Urine Appearance (Clear) Urine pH (5.0-8.0) Ur Specific Anthony (1.001-1.035) Urine Protein (Negative) Urine Glucose (UA) (Negative) Urine Ketones (Negative) Urine Blood (Negative) Urine Nitrite (Negative) Urine Bilirubin (Negative) Urine Urobilinogen (<2.0) mg/dL Ur Leukocyte Esterase (Negative) Urine WBC (0-5) /hpf Ur Squamous Epith Cells (0-4) /hpf Hyaline Casts (0-2) /lpf Urine Mucus (None) /hpf 01/17/24 Range/Units 12:56 WBC (3.8-10.6) k/uL RBC (3.80-5.40) m/uL Hgb (11.4-16.0) gm/dL Hct (34.0-46.0) % MCV (80.0-100.0) fL MCH (25.0-35.0) pg MCHC (31.0-37.0) g/dL RDW (11.5-15.5) % Plt Count (150-450) k/uL MPV Neutrophils % % Lymphocytes % % Monocytes % % Eosinophils % % Basophils % % Neutrophils # (1.3-7.7) k/uL Lymphocytes # (1.0-4.8) k/uL Monocytes # (0-1.0) k/uL Eosinophils # (0-0.7) k/uL Basophils # (0-0.2) k/uL Sodium (137-145) mmol/L Potassium (3.5-5.1) mmol/L Chloride (98-107) mmol/L Carbon Dioxide (22-30) mmol/L Anion Gap mmol/L BUN (7-17) mg/dL Creatinine (0.52-1.04) mg/dL Est GFR (CKD-EPI)AfAm (>60 ml/min/1.73 sqM) Est GFR (CKD-EPI)NonAf (>60 ml/min/1.73 sqM) Glucose (74-99) mg/dL Plasma Lactic Acid Bryce (0.7-2.0) mmol/L Calcium (8.4-10.2) mg/dL Total Bilirubin (0.2-1.3) mg/dL AST (14-36) U/L ALT (4-34) U/L Alkaline Phosphatase (38-126) U/L Total Protein (6.3-8.2) g/dL Albumin (3.5-5.0) g/dL Lipase (23-300) U/L Urine Color Yellow Urine Appearance Clear (Clear) Urine pH 5.5 (5.0-8.0) Ur Specific Anthony 1.022 (1.001-1.035) Urine Protein Negative (Negative) Urine Glucose (UA) Negative (Negative) Urine Ketones Negative (Negative) Urine Blood Trace H (Negative) Urine Nitrite Negative (Negative) Urine Bilirubin Negative (Negative) Urine Urobilinogen <2.0 (<2.0) mg/dL Ur Leukocyte Esterase Negative (Negative) Urine WBC <1 (0-5) /hpf Ur Squamous Epith Cells <1 (0-4) /hpf Hyaline Casts 1 (0-2) /lpf Urine Mucus Few H (None) /hpf Disposition Clinical Impression: Abdominal pain Disposition: HOME SELF-CARE Condition: Stable Instructions (If sedation given, give patient instructions): Abdominal Pain (ED) Additional Instructions: Please follow-up with Dr. Stewart. Please return to the Emergency Department if symptoms worsen or any other concerns. Prescriptions: HYDROcodone/APAP 5-325MG [Broughton 5] 1 each PO Q6HR PRN #10 tab PRN Reason: Pain Is patient prescribed a controlled substance at d/c from ED?: Yes When asked, does pt state using other controlled substances?: No If prescribed controlled substance>3 days was MAPS reviewed?: Prescribed <3 Days If opioid is for acute pain is fill amount 7 days or less?: Yes Referrals: Charleen Poe MD [Primary Care Provider] - 1-2 days Time of Disposition: 15:14
[2024-01-17] MEDS: ONDANSETRON 4 MG/2 ML VIAL IVP STA (12:51)
[2024-01-17] MEDS: SODIUM CHLORIDE 0.9% 500 ML 500 ML IV STA (12:51)
[2024-01-17] MEDS: MORPHINE SULFATE 2 MG/ML SYRINGE IVP ONE ×2 (12:58→15:24)
[2024-01-17 13:09] LABS: Basophils # (A) 0.1 k/uL (0-0.2); Basophils % (A) 1 %; Eosinophils # (A) 0.1 k/uL (0-0.7); Eosinophils % (A) 2 %; HCT 45.2 % (34.0-46.0); HGB 14.3 gm/dL (11.4-16.0); Lymphocytes # (A) 1.1 k/uL (1.0-4.8); Lymphocytes % (A) 21 %; MCH 28.7 pg (25.0-35.0); MCHC 31.6 g/dL (31.0-37.0); MCV 90.7 fL (80.0-100.0); Mean Platelet Volume 7.3; Monocytes # (A) 0.2 k/uL (0-1.0); Monocytes % (A) 4 %; Neutrophils # (A) 3.9 k/uL (1.3-7.7); Neutrophils % (A) 70 %; Platelet Count 272 k/uL (150-450); RBC 4.99 m/uL (3.80-5.40); RDW 15.5 % (11.5-15.5); WBC 5.5 k/uL (3.8-10.6)
[2024-01-17 13:23] LABS: ALT 11 U/L (4-34); AST 19 U/L (14-36); African American GFR (CKD) >90 (>60 ml/min/1.73 sqM); Albumin 4.4 g/dL (3.5-5.0); Alkaline Phosphatase 83 U/L (38-126); Anion Gap 4 mmol/L; Blood Urea Nitrogen 9 mg/dL (7-17); Calcium 9.4 mg/dL (8.4-10.2); Carbon Dioxide 30 mmol/L (22-30); Chloride 107 mmol/L (98-107); Glucose 103 mg/dL (74-99); Lipase 65 U/L (23-300); Non-African American GFR(CKD) >90 (>60 ml/min/1.73 sqM); Potassium 4.1 mmol/L (3.5-5.1); Sodium 141 mmol/L (137-145); Total Bilirubin 0.7 mg/dL (0.2-1.3)
[2024-01-17 13:26] LABS: Appearance,Urine Clear (Clear); Bilirubin,Urine Negative (Negative); Blood,Urine Trace (Negative); Color,Urine Yellow; Glucose,Urine (UA) Negative (Negative); Hyaline Casts,Urine 1 /lpf (0-2); Ketones,Urine Negative (Negative); Leukocyte Esterase,Urine Negative (Negative); Mucus,Urine Few /hpf; Nitrite,Urine Negative (Negative); PH, Urine 5.5 (5.0-8.0); Protein,Urine Negative (Negative); Specific Gravity,Urine 1.022 (1.001-1.035); Squamous Epithelial Cell,Urine <1 /hpf (0-4); Urobilinogen,Urine <2.0 mg/dL (<2.0); WBC,Urine <1 /hpf (0-5)
--- NOTE | 2024-01-17 14:34 | CT ---
EXAMINATION TYPE: CT abdomen pelvis wo con DATE OF EXAM: 01/17/2024 COMPARISON: 11/29/2023 INDICATION: acute abd pain DLP: 365.5 mGycm, Automated exposure control for dose reduction was used. CONTRAST: 0 mL of Isovue 300. Study performed without Oral Contrast TECHNIQUE: Axial images were obtained from above the diaphragm to the pubic rami in the axial plane a t 5 mm thick sections. Reconstructed images are reviewed on the computer in the coronal plane. FINDINGS: Limited CT sections are obtained the lung bases. The lung bases are clear. Small hiatal hernia is p resent CT ABDOMEN: Liver: Normal Spleen: Normal Pancreas: Normal Adrenal glands: The adrenal glands are normal. Gallbladder: Surgically absent Kidneys: No masses are evident. No hydronephrosis is present. No cysts are present. No renal stone s are evident. Aorta: Normal Inferior vena cava: Normal. CT PELVIS: Loops of bowel within the abdomen and pelvis are normal. The study is without oral contrast limit ing bowel evaluation. Appendix: Not identified. No dilated tubular structure or inflammatory changes evident. Urinary bladder: Urinary bladder wall thickening is present. There may be partial decompression of th e urinary bladder. Genitourinary structures: Uterus appears normal. Adnexa are normal. Osseous structures: No suspicious lytic or sclerotic lesions. IMPRESSION: 1. Urinary bladder wall thickening and a partially decompressed urinary bladder. Clinical correlatio n for cystitis is recommended. 2. Small hiatal hernia
[2024-01-17 14:51] VITALS: PULSE 55; RESP 18
[2024-01-17 15:43] VITALS: BP 119/78; TEMP 98
== END 2024-01-17 15:32 | disposition home or self-care (01) ==
LOC: EC 11:56
DX: K44.9 Diaphragmatic hernia without obstruction or gangrene (principal); Z91.040 Latex allergy status; Z87.891 Personal history of nicotine dependence; Z88.6 Allergy status to analgesic agent; Z88.8 Allergy status to other drugs, medicaments and biological substances
CPT/HCPCS: 36415; 80053; 83605; 83690; 85025; 81001; 74176; 99284; 96374; 96375; 96376; 96361; J2405; J2270

== ENCOUNTER → 2024-01-21 | Outpatient (CLI) | payer OTHER ==
--- NOTE | 2024-01-21 18:55 | MM ---
Reason for Exam: Screening (asymptomatic). Last mammogram was performed 5 year(s) and 2 month(s) ago. Patient History: Menarche at age 10. First Full-Term at age 25. Postmenopausal. 1990, Bilateral Reduction. 2001, Benign Excisional Biopsy on the left side. Paternal grandmother had breast cancer. Paternal grandfather had breast cancer. Risk Values: Jennyfer 5 year model risk: 2.0%. NCI Lifetime model risk: 10.7%. Prior Study Comparison: 08/09/2016 Bilateral Screening Mammogram, [facility]. 10/10/2017 Bilateral Screening Mammogram, [facility]. 11/27/2018 Bilateral Screening Mammogram, [facility]. Tissue Density: There are scattered areas of fibroglandular density. Findings: Analyzed By CAD. Unchanged asymmetric density posterior superior left MLO view. Scattered benign round calcifications are redemonstrated. There is no suspicious group of microcalcifications or new suspicious mass in either breast. Overall Assessment: Benign, BI-RAD 2 Management: Screening Mammogram of both breasts in 1 year. . Patient should continue monthly self-breast exams. A clinical breast exam by your physician is recommended on an annual basis. This exam should not preclude additional follow-up of suspicious palpable abnormalities. Note on Jennyfer scores and lifetime risk: 1. A Jennyfer score greater than 3% is considered moderate risk. If this is the case, consider specialist referral to assess eligibility for a risk reducing agent. 2. If overall lifetime risk for the development of breast cancer is 20% or higher, the patient may qualify for future screening with alternating mammogram and breast MRI. Electronically signed and approved by: Lucy Raphael M.D. Radiologist
--- NOTE | 2024-01-21 20:04 | US ---
EXAMINATION TYPE: US carotid duplex BILAT DATE OF EXAM: 01/21/2024 COMPARISON: NONE CLINICAL INDICATION: Female, 58 years old with history of Z12.31 SCREEING I65.23 OCCLUSION AND STENOS IS OF B; assess stenosis, no h/o stroke, no symptoms TECHNIQUE: Carotid duplex ultrasound examination. Indirect Doppler criteria was utilized. FINDINGS: EXAM MEASUREMENTS: RIGHT: Peak Systolic Velocity (PSV) cm/sec ----- Right CCA: 76.9 ----- Right ICA: 90.7 ----- Right ECA: 62.0 ICA/CCA ratio: 1.2 RIGHT: End Diastole cm/sec ----- Right CCA: 25.2 ----- Right ICA: 29.3 ----- Right ECA: 0.0 LEFT: Peak Systolic Velocity (PSV) cm/sec ----- Left CCA: 75.3 ----- Left ICA: 92.4 ----- Left ECA: 61.1 ICA/CCA ratio: 1.2 LEFT: End Diastole cm/sec ----- Left CCA: 24.3 ----- Left ICA: 33.9 ----- Left ECA: 10.6 VERTEBRALS (direction of flow): Right Vertebral: Antegrade Left Vertebral: Antegrade Rhythm: Normal IV THERAPY NURSE NOTES: Mild homogeneous plaque with no stenosis seen IMPRESSION: No ultrasound evidence for hemodynamically significant stenosis of the visualized bilateral carotid a rterial systems. Criteria for Assigning % of Stenosis / Diameter reduction (Estimation based on the indirect measurements of the internal carotid artery velocities (ICA PSV). 1. Normal (no stenosis)=ICA PSV < 125 cm/s: ratio < 2.0: ICA EDV<40 cm/s. 2. Less than 50% stenosis=ICA PSV < 125 cm/s: ratio < 2.0: ICA EDV<40 cm/s. 3. 50 to 69% stenosis=ICA PSV of 125 to 230 cm/s: ration 2.0 ? 4.0: ICA EDV 40-100 cm/s. 4. Greater than 70% stenosis to near occlusion= ICA PSV > 230 cm/s: ratio > 4.0: ICA EDV > 100 cm/s. 5. Near occlusion= ICA PSV velocities may be low or undetectable: variable ratio and ICA EDV. 6. Total occlusion=unable to detect flow.
--- NOTE | 2024-02-01 22:05 | CTL ---
EXAMINATION TYPE: CT Low Dose Lung DATE OF EXAM ORDERED: 01/21/2024 HISTORY: 58-year-old female Z87.891 personal hx tobacco use. Former smoker, 20 pack year history. Altagracia g cancer screening CT DLP: 55.[address] CTDI: 1.7 mGy Automated exposure control for dose reduction was used. SCREENING VISIT: Baseline COMPARISON: 05/13/2018 TECHNIQUE: Low dose computed tomography scan was performed through the chest at 1 mm thick sections a nd reconstructed images in multiple planes at 1 mm and [address] DIAGNOSTIC QUALITY: Satisfactory FINDINGS: 2.8 cm inferior left thyroid lobe nodule versus 2.6 cm, previously. Further thyroid ultrasound evalua tion recommended. Heart normal size without pericardial effusion. Proximal LAD coronary artery calcifications are prese nt. Aorta normal caliber with bovine configuration to the aortic arch. No thoracic lymphadenopathy by CT size criteria. Mild diffuse bronchial wall thickening. [id number] emphysematous change. Numerous scattered tin y benign calcified granulomas are redemonstrated. Some mild mosaic attenuation in the lower lungs sug gesting small airways. Additional scattered 4 mm smaller pulmonary nodules remain unchanged. Some chronic scarring medial right middle lobe and inferior lingula. Small to moderate-sized hiatal hernia. Postsurgical change likely relating to prior Albert-en-Y gastric bypass. Suspected 1.0 cm exophytic cyst medial upper left kidney. Bones: Mild anterior spondylosis lower thoracic spine. IMPRESSION: 1. LungRADS 2, benign. Evidence of prior granulomatous disease. Stable scattered 4 mm and smaller nod ules. 2. COPD with mild to moderate emphysema and evidence of small airways disease. 3. A 2.8 cm left thyroid lobe nodule slightly larger from prior. Correlate with any previous workup. Thyroid ultrasound can provide further characterization. 4. [id number] sized hiatal hernia along with post surgical change of Albert-en-Y gastric bypass. CT LUNG RAD AND CT CHEST RECOMMENDATION: S Modifier (other clinically significant findings):
== END | disposition home or self-care (01) ==
LOC: RADUSWWP 07:02
PROVIDERS: ATTEND Internal Medicine
DX: Z12.31 Encounter for screening mammogram for malignant neoplasm of breast (principal); Z12.2 Encounter for screening for malignant neoplasm of respiratory organs; I65.23 Occlusion and stenosis of bilateral carotid arteries; Z78.0 Asymptomatic menopausal state; K44.9 Diaphragmatic hernia without obstruction or gangrene; J43.9 Emphysema, unspecified; R91.8 Other nonspecific abnormal finding of lung field; Z80.3 Family history of malignant neoplasm of breast; Z87.891 Personal history of nicotine dependence
CPT/HCPCS: 71271; 77063; 77067; 93880

== ENCOUNTER → 2024-02-07 | Outpatient (CLI) | payer OTHER ==
[2024-02-07 14:31] VITALS: BP 171/79; PULSE 60; RESP 16
--- NOTE | 2024-02-07 15:13 | P.PAINPG ---
PQRS Measure Charge Sheet Comment: HISTORY OF PRESENT ILLNESS: A 58 yr old female as a referral from Dr Stewart presents today w severe and chronic LBP > 3 mo secondary to DDD, spondylosis and facet arthropathy without myelopathy for evaluation. Pt states pain level is provoked at 9 /10 in intensity, constant, localized in the epigastric region, burning in character without shooting pain . Pain has no provocation. Pain is alleviated slightly by antacids and rest . Pt states she can not have steroid injections. PMH: OA, Angina, COPD, Eye Disorder, Fibromyalgia, GERD, HTN, Hypothyroid Disorder, Anxiety PSH: Cholecystectomy, Uterine Ablation, Hiatal Hernia, Cardenas Space Defect Bowel Hernia (December 2019), L [employer] DES[employer]GER, Breast Reduction (2017), Thyroid Nodule, Gastric Sleeve (2015) w Gastric Bypass Revision (2017), Pneumoperitoneum Surgery (2018), Adhesiolysis (2018), Colonoscopy w EGD (2017), Ulcer Repair SH: Former tobacco user, Rare ETOH use, No illicit drug use FH: Mo- Emphysema. Fa- at age 22 due to plane crash All: See list Meds: See list REVIEW OF ORGAN SYSTEMS: CONSTITUTIONAL: No fevers or chills. No recent weight loss. NEUROLOGICAL: + numbness and tingling along the distal extremities. No seizure disorders or headaches. MUSCULOSKELETAL: + pain PSYCHIATRIC: Denies current depression or suicidal thoughts. Physical Examinations : Constitutional : Cooperative , not in acute distress . Neurologic : Cranial nerve II to XII intact. No focal n eurological deficits. Psychiatric : alert & oriented x 3. Matching mood & appropriate affect. Judgment & insight intact. Musculoskeletal : Cervical Spine Motor strength in the deltoid and biceps: Normal right side. Normal Left side Motor strength biceps and the wrist extensors: Normal right side . Normal left side Motor strength in the triceps muscle: Normal right side. Normal left side Deep tendon reflexes: Normal at the biceps. Normal at Brachioradialis. Normal at triceps Vertebral body tenderness to deep p alpation over Cervical facet loading test: positive bilaterally Spurling test: positive bilaterally Neck distraction test: positive bilaterally Ophelia sign: positive bilaterally Lumbar spine Motor strength lower extremities ,thigh and legs 5/5 Right side , 5/5 Left side Deep tendon reflexes : Normal Knee Jerk. Normal Ankle Jerk Vertebral body tenderness over Mcdaniel Test positive Lumbar facet Loading Test: positive Right / positive Left Range of motion of the lumbar spine Flexion 30 degrees, extension 10 degrees Straight Leg Raise test: Left/ Right positive at degrees Alak test: positive right / positive left. Severe tenderness over the Sacroiliac joint on the Right / Left sides Gaenslen test: positive bilaterally Seated flexion test: positive bilaterally. Sacral spine : Severe tenderness over the Sacroiliac joint: right side / left side Range of motion: Flexion of the lumbar spine <60 degrees Range of motion: Extension of the lumbar spine <20 degrees Gaenslen's Test positive Alka test: positive right side / left side Thigh Thrust Test Sacral Thrust Test Imaging: CT Abdomen reviewed Assessment/ Plan : Gastric Ulcers May benefit from a Celiac Plexus block though pt stated she can not have any steroids. She may follow up w her surgeon to explore possible esophagojejunal reconstruction. All questions answered. I have spent greater than 30 minutes on patient care today. Dr Cruz was available by phone for the evaluation of this patient. The time was used to review the medical records including relevant urine studies and Prescription history (MAPs), review of the available imaging, evaluation and examination of the patient, coordination of care with the medical staff and if applicable referring physicians, as well as creation of the medical record PQRS Narrative: Smoking Status Former smoker Home Medications: Ambulatory Orders SUMAtriptan succinate [Imitrex] 100 mg PO DAILY PRN #30 tab 12/20/21 ALPRAZolam [ALPRAZolam XR] 0.5 mg PO BID PRN 04/13/22 Levothyroxine Sodium [Synthroid] 37.5 mcg PO HS 04/13/22 Fluticasone/Umeclidin/Vilanter [Trelegy Ellipta 100-62.5-25] 1 puff INHALATION RT-DAILY 05/02/22 Pantoprazole [Protonix] 40 mg PO BID #60 tab 02/07/23 Albuterol Sulfate [Proair Hfa] 2 puff INHALATION RT-Q6H PRN 11/27/23 Butalb/Acetaminophen/Caffeine [Fioricet 50-300-40 mg Capsule] 1 cap PO BID PRN 11/27/23 Olmesartan [Benicar] 20 mg PO DAILY@1200 11/27/23 Ondansetron Odt [Zofran ODT] 4 mg PO TID PRN 11/27/23 modafiniL [Provigil] 200 mg PO BID PRN 11/27/23 Sucralfate [Carafate] 1 gm PO ACHS #120 tablet 12/01/23 Unk Multi Vitamin 1 tab PO DAILY 12/25/23 Olmesartan [Benicar] 20 mg PO DAILY 01/09/24 HYDROcodone/APAP 5-325MG [[place] 5] 1 each PO Q6HR PRN #10 tab 01/17/24 Controlled Substance Measures - Controlled Substance Measures Is patient prescribed a controlled substance at discharge?: No
== END ==
LOC: PNWHC3 13:44
PROVIDERS: ATTEND Specialist
DX: M54.50 Low back pain, unspecified (principal); M54.6 Pain in thoracic spine; K25.9 Gastric ulcer, unspecified as acute or chronic, without hemorrhage or perforation; Z87.891 Personal history of nicotine dependence; Z91.040 Latex allergy status; Z88.6 Allergy status to analgesic agent; Z88.8 Allergy status to other drugs, medicaments and biological substances
CPT/HCPCS: 99211

== ENCOUNTER → 2024-02-20 | Outpatient (CLI) | payer OTHER ==
[2024-02-20 18:36] LABS: Basophils # (A) 0.05 X 10*3/uL (0.00-0.10); Eosinophils # (A) 0.12 X 10*3/uL (0.04-0.35); Eosinophils % (A) 2.5 %; HCT 42.9 % (37.2-46.3); HGB 13.7 g/dL (12.0-15.0); Lymphocytes # (A) 1.62 X 10*3/uL (0.90-5.00); Lymphocytes % (A) 33.8 %; MCH 29.6 pg (27.0-32.0); MCHC 31.9 g/dL (32.0-37.0); MCV 92.7 FL (80.0-97.0); Mean Platelet Volume 9.8 FL (9.5-12.2); Monocytes # (A) 0.37 X 10*3/uL (0.20-1.00); Monocytes % (A) 7.7 %; NRBC Per 100 WBC 0 X 10*3/uL (0.00-0.01); Neutrophils # (A) 2.63 X 10*3/uL (1.80-7.70); Neutrophils % (A) 54.8 %; Platelet Count 303 X 10*3/uL (140-440); RBC 4.63 X 10*6/uL (4.10-5.20); RDW 12.2 % (11.5-14.5)
[2024-02-20 19:34] LABS: ALT 15 U/L (8-44); AST 19 U/L (13-35); Albumin 4.7 g/dL (3.8-4.9); Albumin/Globulin Ratio 2.14 Ratio (1.60-3.17); Alkaline Phosphatase 81 U/L (41-126); Blood Urea Nitrogen 8.1 mg/dL (9.0-27.0); Carbon Dioxide 27.2 mmol/L (21.6-31.8); Chloride 107 mmol/L (96-109); Globulin 2.2 g/dL (1.6-3.3); Glucose 59 mg/dL (70-110); Potassium 3.7 mmol/L (3.5-5.5); Sodium 144 mmol/L (135-145); Total Bilirubin 0.6 mg/dL (0.3-1.2); Total Protein 6.9 g/dL (6.2-8.2)
== END | disposition home or self-care (01) ==
LOC: LABPAT 14:18
PROVIDERS: ATTEND Surgery Plastic and Reconstructive Surgery
DX: Z01.812 Encounter for preprocedural laboratory examination (principal); K28.5 Chronic or unspecified gastrojejunal ulcer with perforation; E66.01 Morbid (severe) obesity due to excess calories
CPT/HCPCS: 36415; 80053; 85025; 86850; 86900; 86901

== ENCOUNTER 2024-02-22 12:04 | Inpatient (IN) | payer OTHER ==
[2024-02-20 09:02] VITALS: BMI 22.6
[~2024-02-22 12:04] MED LIST changes: +HYDROmorphone 0.5 MG/0.5 ML SYRINGE IVP PRN; +MIDAZOLAM 2 MG/2 ML VIAL IV PRN
[2024-02-22] MEDS: IV FLUID CONTINUATION 1,000 ML IV ONE (12:23)
[2024-02-22 12:43] LABS: Glucose,Whole Blood 90 mg/dL (70-110)
[2024-02-22] MEDS: LACTATED RINGERS 1,000 ML IV SCH (12:51)
[2024-02-22] MEDS: DEXAMETHASONE SOD PHOSPHATE 4 MG/ML 1 ML VIAL IV ONE (13:03)
[2024-02-22] MEDS: ONDANSETRON 4 MG/2 ML VIAL IVP ONE (13:03)
[2024-02-22] MEDS: diphenhydrAMINE 50 MG/ML 1 ML VIAL IVP STA (13:24)
[2024-02-22] MEDS: MIDAZOLAM 2 MG/2 ML VIAL IVP ONE (13:29)
[2024-02-22] MEDS ORDERED: ROPIVACAINE 5 MG/ML 30 ML VIAL ONE (14:13)
[2024-02-22] MEDS ORDERED: NEOSTIGMINE 1 MG/ML 10 ML VIAL ONE (14:13)
[2024-02-22] MEDS ORDERED: SUCCINYLCHOLINE CHLORIDE 200 MG/10 ML VIAL IV ONE (14:13)
[2024-02-22] MEDS ORDERED: fentaNYL (PF) 50 MCG/ML 2 ML AMP ONE (14:13)
[2024-02-22] MEDS ORDERED: LIDOCAINE 1% INJ 10MG/ML (20 ML MDV) ONE (14:13)
[2024-02-22] MEDS ORDERED: HYDROmorphone (PF) 1 MG/ML ONE (14:13)
[2024-02-22] MEDS ORDERED: SODIUM CHLORIDE 0.9% (PF) 10 ML VIAL ONE (14:13)
[2024-02-22] MEDS ORDERED: ROCURONIUM 10 MG/ML (5 ML VIAL) IV ONE (14:13)
[2024-02-22] MEDS ORDERED: GLYCOPYRROLATE 0.2 MG/ML 2 ML VIAL ONE (14:13)
[2024-02-22] MEDS ORDERED: PROPOFOL 10 MG/ML 20 ML VIAL IV ONE (14:13)
[2024-02-22] MEDS ORDERED: MIDAZOLAM 2 MG/2 ML VIAL ONE (14:13)
[2024-02-22] MEDS: LIDOCAINE 1%-EPI 1:100,000 20 ML VIAL SQ ONE (14:53)
--- NOTE | 2024-02-22 18:06 | P.ANPRN ---
Procedure Note - Anesthesia - Nerve Block Performed Bilateral Erector Spinae Single Time Out Performed: Yes (1328) Date of Procedure: 02/22/24 Procedure Start Time: 13:30 Procedure Stop Time: 13:36 Location of Patient: PreOp Indication: Acute Post-Operative Pain, Requested by Surgeon Sedation Type: Sedate with meaningful contact maintained Preparation: Sterile Prep, Sterile Dressing Position: Prone Catheter: None Needle Types: Pajunk Needle Gauge: 21 Ultrasound used to visualize needle placement: Yes Ultrasound used to observe medication spread: Yes Injectate: 0.5% Ropivacaine (see comment for volume) (20 mL of block solution injected on each side. Block solution containing 20 mL of 0.5% ropivacaine mixed with 20 mL of preservative-free normal saline.) Narrative: 1 attempt on each side Blood Aspirated: No Pain Paresthesia on Injection Noted: No Resistance on Injection: Normal Image Stored and Saved: Yes Events: Uneventful and Well Tolerated
[2024-02-22] MEDS: LACTATED RINGERS 1,000 ML IV ONE (19:14)
[2024-02-22] MEDS ORDERED: NALOXONE 0.4 MG/ML 1 ML VIAL IV PRN ×2 (19:53→19:56)
[2024-02-22] MEDS ORDERED: HYDROmorphone 1 MG/ML 1 ML SYRINGE IVP PRN (19:54)
[2024-02-22] MEDS: HEPARIN SODIUM,PORCINE 5,000 UNIT/ML 1 ML VIAL SQ STA (19:58)
[2024-02-22] MEDS: ALBUTEROL NEBULIZED 2.5 MG/3 ML INHALATION SCH (21:11)
[2024-02-22] MEDS: PANTOPRAZOLE 40 MG/10 ML VIAL IV SCH (22:08)
[2024-02-22] MEDS: ACETAMINOPHEN IV (For NPO) 1,000 MG in EMPTY BAG 1 BAG IVPB ONE (22:08)
[2024-02-22] MEDS: 0.9% NACL WITH KCL 20 MEQ/L 1,000 ML IV SCH (22:34)
[2024-02-22] MEDS: fentaNYL PCA 500 MCG/50 ML BAG IV SCH (22:34)
[2024-02-22] MEDS: ONDANSETRON 4 MG/2 ML VIAL IVP SCH (23:06)
[2024-02-22] MEDS ORDERED: ALBUTEROL NEBULIZED 2.5 MG/3 ML INHALATION PRN ×2 (23:36→23:43)
[2024-02-23] MEDS: ALPRAZolam 0.25 MG TAB PO SCH (00:18)
[2024-02-23] MEDS: SIMETHICONE 80 MG CHEWABLE PO SCH (00:18)
--- NOTE | 2024-02-23 07:11 | P.GSHP ---
History of Present Illness H&P Date: 02/22/24 CHIEF COMPLAINT: Status post gastric bypass HISTORY OF PRESENT ILLNESS: Josefina Bird is a 58-year-old female who is status post sleeve gastrectomy to gastric bypass 02/18/2018. She is 6 years out. Patient has had recurrent gastrojejunal ulcers with perforations at least 3 occasions. Despite maximal therapy including Protonix 40 mg twice daily, Carafate 1 g 3 times daily, patient still continues to develop recurrent gastrojejunal ulcers. She reports chronic epigastric abdominal pain including chronic nausea. She has had multiple upper endoscopies including balloon dilation with recurrent strictures. She had multiple assessments including tertiary care assessment at [facility] for her symptoms. Patient presents for revision of her gastrojejunostomy to esophagojejunostomy due to recurrent perforated gastrojejunal ulcers. Her previous weight was 201 pounds, BMI 36.8. [place] body weight for 5 foot 2 inches is 135 pounds. Today she comes in weighing 124 pounds from 141 pounds, 4 years ago. She has lost 17 pounds in 4 years. She has lost 77 pounds lifetime. Lifetime percent excess weight loss 117 %. Body mass index reduced from 36.8 down to 22.7. PAST MEDICAL HISTORY: 1. Obstructive sleep apnea. 2. Gastroesophageal reflux disease. 3. History of hiatal hernia. 4. Carpal tunnel syndrome. 5. Diabetes type 2. 6. Hypothyroidism. 7. Chronic obstructive pulmonary disease. 8. Anxiety. 9. Colon polyps. 10. Sleep apnea. 11. Morbid obesity due to excess calories, BMI 36.8, initial PAST SURGICAL HISTORY: 1. Uterine ablation. 2. Left carpal tunnel release. 3. Bilateral breast reduction. 4. Upper endoscopy. 5. Lower endoscopy. 6. Status post sleeve gastrectomy. 7. Cholecystectomy. 8. Repair of perforated gastrojejunal ulcer at outside institution, Apr 2018 9. Closure of internal hernias, diagnostic laparoscopy at [place], Aug 2019 10. Upper endoscopy multiple dilations. 11. Multiple diagnostic laparoscopies at outside institution MEDICATIONS: Reviewed ALLERGIES: Reviewed SOCIAL HISTORY: Former tobacco user. FAMILY HISTORY: Pertinent for morbid obesity in her mother. Also no reports of Crohn's disease or ulcerative colitis. Denies any family history of gastrointestinal cancers. She has a mother who has morbid obesity. REVIEW OF SYSTEMS: CONSTITUTIONAL: Her ideal body weight is 135 pounds for her 5 foot 2 frame. Heighest weight of 201 pounds. Prior BMI 36.8. GASTROINTESTINAL: No reports of dumping syndrome. History of colon polyps. History of ulcers, chronic gastrojejunal ulcers including esophageal ulcers. ENDOCRINE: Improved insulin resistance. She is no longer on medications for diabetic control. CARDIOVASCULAR: History of hypertension. No palpitations. RESPIRATORY: History of chronic obstructive pulmonary disease. On steroid inhalers. NEURO: History of migraine headaches. No strokes. HEENT: Denies any troubles with hearing. Has open-angle glaucoma. GENITOURINARY: History of endometrial ablation. 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 PSYCH: History of anxiety and depression. HEMATOLOGIC: Denies any easy bruising and bleeding or prior venous thromboembolic event. SKIN: No rash. No skin cancer. PHYSICAL EXAM: VITAL SIGNS: 5 foot 2, 1424 pounds. Body mass index 22.7 ABDOMEN: Soft and non-distended. Minimal epigastric tenderness. MUSCULOSKELETAL: No clubbing, cyanosis, or edema. GENERAL: Well-developed female in no acute distress. HEENT: No sclera icterus. Extraocular movements grossly intact. Moist buccal mucosa. Head is atraumatic, normocephalic. Hears conversational speech. No nasal drainage. NECK: Supple without lymphadenopathy. No JV distention. CHEST: Non-labored respirations and equal bilateral excursions. CARDIOVASCULAR: Regular rate and rhythm. NEUROLOGIC: No focal or lateralizing signs. Cranial nerves II through XII grossly intact. PSYCH: Appropriate affect. Alert and oriented to person, place and time. SKIN: Well-perfused. Good skin turgor. ASSESSMENT: 1. Chronic gastrojejunal ulcers with perforations 2. Body mass index reduced from 36.8 down to 2.7 3. Status post conversion from sleeve gastrectomy to gastric bypass 4. History of perforated gastrojejunal ulcer 5. Chronic gastric ulcers. 6. Reactive hypoglycemia 7. Dietary surveillance and counseling 8. Chronic nausea 9. UTI 10. Gastroesophageal reflux disease 11. Previous history of morbid obesity due to excess calories PLAN: 1. Benefits and risk of revision of gastric bypass to esophagojejunostomy described including recurrent strictures were reviewed. As patient has chronic recurrent perforated gastrojejunal ulcers resection of gastric pouch was described. 2. Patient is at elevated risk for complications due to multiple prior abdominal procedures including risk of leak, perforation, sepsis, chronic abdo rishi pain. Patient understood risk and wished to proceed. 3. DVT prophylaxis 4. Antibiotic prophylaxis 5. Inpatient hospitalization greater than 2 nights described. Past Medical History Past Medical History: Chest Pain / Angina, COPD, Eye Disorder, Fibromyalgia, GERD/Reflux, Hypertension, Thyroid Disorder Additional Past Medical History / Comment(s): 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 Migraines, hiatal hernia, thyroid nodule. Gastrojejunal perforation, pneumoperitoneum, generalized arthritis. upper abdominal pain due to hernia, glaucoma. History of Any Multi-Drug Resistant Organisms: None Reported Past Surgical History: Bariatric Surgery, Breast Surgery, Cholecystectomy, Uterine Ablation Additional Past Surgical History / Comment(s): EXPLORATORY OF AUGUST 27, HERNIA BOWEL HORVATH SPACE DEFECT @[facility] 08-27-19. 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 Surgery for pneumoperitoneum 04/2018 @ [facility]. Adhesiolysis 09/2018. Colonoscopy with upper endoscopy 2017. Gastric sleeve (03/2016). ulcer repair Past Anesthesia/Blood Transfusion Reactions: Motion Sickness, Postoperative Nausea & Vomiting (PONV) Additional Past Anesthesia/Blood Transfusion Reaction / Comment(s): Has never received blood Past Psychological History: Anxiety Additional Psychological History / Comment(s): Pt is independant.drives, lives with her son. 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 Smoking Status: Former smoker Past Alcohol Use History: Rare Additional Past Alcohol Use History / Comment(s): started smoking at age 16(1981), smoked 1ppd. quit 2011 Past Drug Use History: None Reported Additional Drug Use History / Comment(s): cbd occasionally pt aware none 24hrs before procedure - Past Family History Mother Additional Family Medical History / Comment(s): Emphysema. Maternal great aunt had breast cancer. Father Additional Family Medical History / Comment(s): aircraft pilot w/ plane crash- age 22. Paternal grandmother had breast cancer. Medications and Allergies Home Medications Medication Instructions Recorded Confirmed Type SUMAtriptan succinate [Imitrex] 100 mg PO DAILY PRN #30 tab 12/20/21 02/22/24 Rx ALPRAZolam [ALPRAZolam XR] 0.5 mg PO BID PRN 04/13/22 02/22/24 History Levothyroxine Sodium [Synthroid] 37.5 mcg PO HS 04/13/22 02/22/24 History Fluticasone/Umeclidin/Vilanter 1 puff INHALATION RT-DAILY 05/02/22 02/22/24 History [[place]andon Ellipta 100-62.5-25] Pantoprazole [Protonix] 40 mg PO BID #60 tab 02/07/23 02/22/24 Rx Albuterol Sulfate [Proair Hfa] 2 puff INHALATION RT-Q6H PRN 11/27/23 02/22/24 History Butalb/Acetaminophen/Caffeine 1 cap PO BID PRN 11/27/23 02/22/24 History [Fioricet 50-300-40 mg Capsule] modafiniL [Provigil] 200 mg PO BID PRN 11/27/23 02/22/24 History Sucralfate [Carafate] 1 gm PO ACHS #120 tablet 12/01/23 02/22/24 Rx Unk Multi Vitamin 1 tab PO DAILY 12/25/23 02/22/24 History Olmesartan [Benicar] 20 mg PO DAILY 01/09/24 02/22/24 History Allergies Allergy/AdvReac Type Severity Reaction Status Date / Time latex Allergy states Verified 02/22/24 12:45 "feels like chest tightens" ibuprofen [From Motrin] AdvReac due to Verified 02/22/24 12:45 ulcers NSAIDS (Non-Steroidal AdvReac DUE TO Verified 02/22/24 12:45 Anti-Inflamma STOMACH ULCERS scopolamine AdvReac contraindictated Verified 02/22/24 12:45 with glaucoma Surgical - Exam Vital Signs Temp Pulse Resp BP Pulse Ox 98.7 F 75 18 138/82 97 02/22/24 12:16 02/22/24 12:16 02/22/24 12:16 02/22/24 12:16 02/22/24 12:16
--- NOTE | 2024-02-23 07:52 | P.OP ---
Date of Procedure: 02/22/24 Description of Procedure: SURGEON: SENG BHATIA MD PREOPERATIVE DIAGNOSES: 1. Chronic gastrojejunal ulcers with perforations 2. Gastroesophageal reflux disease. 3. History of hiatal hernia. 4. Carpal tunnel syndrome. 5. Diabetes type 2. 6. Hypothyroidism. 7. Chronic obstructive pulmonary disease. 8. Anxiety. 9. Colon polyps. 10. Sleep apnea. 11. Previous history of morbid obesity due to excess calories 12. Obstructive sleep apnea. 13. Body mass index reduced from 36.8 down to 22.7 14. 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 History of perforated gastrojejunal ulcer 16. Reactive hypoglycemia 17. Chronic nausea 18. Fibromyalgia 19. Glucoma 20. Intractable severe postop nausea vomiting POSTOPERATIVE DIAGNOSES: 1. Chronic gastrojejunal ulcers with perforations 2. Gastroesophageal reflux disease. 3. History of hiatal hernia. 4. Carpal tunnel syndrome. 5. Diabetes type 2. 6. Hypothyroidism. 7. Chronic obstructive pulmonary disease. 8. Anxiety. 9. Colon polyps. 10. Sleep apnea. 11. Previous history of morbid obesity due to excess calories 12. Obstructive sleep apnea. 13. Body mass index reduced from 36.8 down to 22.7 14. 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 History of perforated gastrojejunal ulcer 16. Reactive hypoglycemia 17. Chronic nausea 18. Intra-abdominal peritoneal adhesions 19. Fibromyalgia 20. Glucoma 21. Intractable severe postop nausea vomiting OPERATION: 1. Robotic assisted da Sunday Xi laparoscopic lysis of adhesions of perigastric adhesions and intra-abdominal adhesions 2. Robotic assisted da Sunday Xi laparoscopic takedown of prior gastric bypass including small bowel resection with anastomosis and revision of jejunojejunostomy, including partial gastrectomy with revision of gastrojejunostomy 3. Robotic assisted da Sunday Xi laparoscopic complete revision of Amisha-en-Y gastric bypass, 100 cm antecolic antegastric Amisha limb, with 25 mm EEA. 4. Intraoperative esophagogastrojejunoscopy. 5. Robotic assisted da Sunday Xi laparoscopic reduction of recurrent jose phragmatic hiatal hernia ANESTHESIA: GETA and local, regional block ESTIMATED BLOOD LOSS: 40 mL SPECIMENS REMOVED: None. COMPLICATIONS: NONE. Operative Findings: 1. Prior Amisha length 40 cm with short length preventing revision of gastrojejunostomy due to proposed tension for new revision 2. Torsion of gastrojejunal anastomosis with stricture 3. Perigastric upper abdominal peritoneal adhesions 4. Takedown of prior jejunojejunostomy due to short length of gastric bypass from 40 cm to revised 100 cm 5. Resection of gastrojejunostomy anastomosis of stricture 6. Prior gastric pouch length of 10 cm reduced to 4 cm 7. Recurrent diaphragmatic hiatal hernia identified and reduced 8. Jejunojejunostomy closed using 2-0 V-LOC, green 9. Cardenas's defect closed due to adhesions 10. Leak test negative with gastrojejunal anastomosis widely patent and hemostatic. 11. Reinforcement sutures were placed along the gastrojejunal anastomosis at 3:00, 9:00 and 12:00. INDICATIONS: Josefina Locke is a 58-year-old female who comes with prior sleeve gastrectomy converted to gastric bypass due to intractable gastroesophageal reflux disease. Patient has then developed multiple perforations of her gastrojejunal ulceration secondary to medication such as NSAIDs which have been discontinued including high acid output despite maximal dose therapy with combination Protonix and Carafate. Patient has had multiple assessments including at tertiary care centers. Due to her recurrent gastric ulcers including strictures, revision of her gastric bypass including complete resection of her gastric pouch to esophagojejunostomy were reviewed. Patient understood high risk of recurrent strictures, dysphagia, including risk of leak due to prior abdominal surgeries. Patient understood the risks and wished to proceed. DESCRIPTION: Due to the patient's severe pre-existing history of intractable postop nausea vomiting, extensive antiemetics including regional block and total IV anesthesia were discussed with the surgical team. The patient was brought into the operating room theater. She was placed supine. After general induction, the abdomen was prepped and draped in standard sterile fashion. Ioban draping was placed along the abdomen. Hernandez catheter was avoided. A robotic da Sunday Xi system was prepped and primed. Incisions were proposed at 13 cm from the xiphoid. Proposed port sites were marked with indelible marker along the anterior axillary line bilaterally, mid clavicular line bilaterally with each port marked 10 cm from each other. The robotic stapler port was marked for the right midclavicular line including along the left midclavicular line. A 5 mm 0 degrees laparoscopic trocar entry was performed along the left upper quadrant. The abdomen was insufflated to 15 mmHg pressure, which she tolerated well. Diagnostic laparoscopy demonstrated no injury to bowel, viscera, or mesentery. Hepatomegaly along the right lower liver was identified however the left lobe of the liver was entirely adhesed to the left diaphragm. Adhesions about the diaphragmatic hiatus was identified. No large bowel obstruction or small bowel obstruction or small bowel dilatation was identified. No pelvic adhesions were identified. An 8 mm camera port was placed left lateral to the umbilicus at the epigastrium, 15 cm distal to the xiphoid. Next, 12-mm robot stapler port was placed along the right mid abdomen. An 12 mm port was exchanged along the left upper quadrant. An 8 mm port was placed on the left lateral abdominal wall under direct visualization Care was taken to check that each robotic arm was safely away from collision with the bed or the patient. Liver retractor was avoided due to patient's adhesion of the left lobe of the liver to the diaphragm. The patient was repositioned in reverse Trendelenburg position at 25-degrees after lowering the bed. The robot was docked over the patient. Using grasper for arm 3, a grasper for arm 1, including vessel sealer for arm 4, the robotic system was docked and primed as described. Instruments were interchanged by the communication assistant including vessel sealer, bowel graspers, hook artery, needle log driver, and stapler. I had sat at the console. Initial attention was brought to the epigastrium where adhesions about the diaphragmatic hiatus. Vessel sealer was used to take down the adhesions for lysis of adhesions. Next the hiatus was carefully dissected free including the gastric pouch revealing a prior repair of the posterior hiatal hernia repair. The biological mesh had completely resorbed. Next, the gastric pouch was dissected free of surrounding tissue including of the gastrojejunal anastomosis. The proximal Amisha limb was also lysed of surrounding tissues demonstrating stricture of the gastrojejunal anastomosis. Additionally, moderate adhesions involving the proximal Amisha limb to the anastomosis demonstrated torsion from the surrounding tissue. The adhesions were lysed. Prior to any resection, I went to the head of the bed to perform endoscopy to assess and confirm the length of the gastric pouch. Length of the gastric pouch was found to be 10 cm with the active stricture of the gastrojejunal anastomosis. Residual small less than 2 mm ulceration was found at the gastrojejunal anastomosis with a pill identified along the blind jejunal limb. I went back to the head of the bed to assess the rest of her gastric bypass. The current Amisha limb was measured and found to be 40 cm to the jejunojejunostomy and reconfirmed after multiple measurements using a ruler. Due to the short length of the Amisha limb, revision of her gastrojejunostomy required additional blue length. The biliopancreatic limb was assessed without torsion or tension. No internal hernia were found of the Petersons defect or jejunojejunostomy mesenteric defects were completely closed. Due to the short length of the current Amisha limb, increased length was proposed with revision of the jejunojejunostomy. The jejunojejunostomy was lysed from surrounding tissue and divided using a 60 mm green robotic staple load. The Amisha limb was lengthened to 100 cm from the current gastrojejunal anastomosis. The Amisha limb was remeasured prior to his proposed new jejunojejunostomy anastomosis. Each limb were tacked prior to division with stapler. The proximal Amisha limb was tacked to the abdominal wall using 3-0 silk prior to division of limbs. Additionally, the 100 cm jannet of the new Amisha limb was labeled with 3-0 silk as well. The ligament of Treitz was identified and measured 60 cm antegrade. The p roposed resected prior staple line of the jejunojejunostomy was 5 cm in length. The old staple line was resected using 60 mm blue robotic staple load creating a new 50 cm biliopancreatic limb. The biliopancreatic limb was held in place. The Amisha limb was measured 100 cm in an antegrade fashion to avoid tension along the proposed gastrojejunal anastomosis. At 100 cm along the anti-mesenteric border of the Amisha limb, a jejunojejunostomy was proposed whereby enterotomies were created along the biliopancreatic limb including the Amisha limb using a Bovie cautery. A stay suture of 3-0 Slik was kimi michael to align and create the anastomosis. The enterotomies along the anti- mesenteric borders were created followed by unidirectional fire from the patient's right side using 60 mm below loads Smart technology robotic stapler. The jejunojejunostomy was found to be hemostatic. The enterotomy was closed after horizontal mattress stitch of 3-0 silk used to elevate the enterotomy followed by closure with the robotic stapler blue load. The jejunal limb was already temporarily tacked along the left upper quadrant. Attention was now brought to the creation of the gastrojejunostomy. The esophagus was densely adherent along the hiatus prohibiting conversion to a complete esophagojejunostomy. Due to the moderate length of her gastrojejunostomy was proposed. The prior gastrojejunostomy anastomosis was resected along the jejunum incorporating 2 cm of the proximal Amisha limb that was already tacked to the anterior abdominal wall. The gastric pouch was previously measured at 10 cm with a ruler. Additional dissection along the hiatus was performed including posterior to the gastric pouch allowing for a rotation and inspection of the gastric pouch prior to division. The gastric pouch was d ivided at 5 cm from the hiatus using a 60 mm robotic green staple load. The patient was then prepared for placement of a Orvil. A 25-mm Orvil was selected for placement by the nurse credit and collections analyst. The Orvil tubing was placed posterior to the staple line of the gastric pouch. I re-scrubbed into the case. The robotic arms were temporarily undocked. The Orvil was then carefully and successfully navigated with the help of the nurse credit and collections analyst into the gastric pouch. The sutures were identified and divided. The tubing was from the 25 mm anvil and removed through the left lateral 12 mm trocar. No torsion was found upon the Amisha limb. No tension was identified as the limb was brought along the upper abdomen. The jejunal limb was previously opened using hook cautery. The 25-mm EEA stapler was brought through the left anterior lateral port site from the left side. The EEA stapler was brought through the open jejunal limb and its needle was deployed at the antimesenteric border where the anvil were mated for approximately 1 minute upon firing. The stapler was removed after irrigating the shaft of the instrument with warm normal saline. Donuts were found to be thick and intact on both sides. The da Sunday Xi robot arms were then re-docked. I sat at the console. The open jejunal limb defect was closed using 60 mm blue loads after releasing any tension from the blind jejunal limb. No redundancy was present for jejunal limb. The transverse mesocolon was divided for the amisha limb. Reinforcement sutures were placed along the gastrojejunal anastomosis and placed along the 3:00, 9:00, 12:00 o'clock position using 3-0 Vicryl. The Cardenas defect was completely closed due to prior adhesions. The jejunojejunostomy mesenteric defect were completely closed using 2-0 V LOC, green. I then went to the head of the bed to perform the esophagogastrojejunoscopy and a leak test. An Olympus gastroscope was passed alongthe posterior oropharynx which was unremarkable for any injury to the vocal cords. The scope was passed down to the proximal portion of the pouch, whereby no active bleeding was encountered. Excellent visualization of the gastrojejunostomy anastomosis, including the Amisha limb was encountered with endoscopic image obtained. The anastomosis was found to be patent without active bleeding. Residual blood was suctioned from the gastric pouch. The gastrointestinal tract was desufflated. No evidence of intraoperative leak was encountered as the gastric pouch and anastomosis were submerged under normal saline solution. The robot was then undocked. I then went back to the bedside of the patient, whereby with coordinated effort of the communication assistant, irrigation was aspirated from the upper abdominal cavity. Tisseel was placed circumferentially over the anastomosis of the gastrojejunostomy. The fascial defect of the EEA stapler was closed using Darien Chicas and 0 Vicryl. All instruments and pneumoperitoneum were evacuated from the abdominal cavity. The port correlating with the EEA stapler device was cleansed with normal saline solution and hydrogen peroxide. The rest of incisions were reapproximated using 4-0 Monocryl in an interrupted subcuticular fashion. Local anesthetic was infiltrated along the skin for postop analgesia. Liquid glue was applied to the skin. OptiFoam dressing was placed along the EEA stapler site. At the end of the procedure, needle, sponge and instrument count had been verified correct by the assembler surgical garment. The patient had tolerated the procedure well and was extubated and taken to the postanesthesia unit in stable condition. COMPLEXITY: Initial proposed procedure of esophagojejunostomy revised to complete revision of gastric bypass due moderate dense adhesions along the distal esophagus and short length of Amisha limb requiring complete revision of jejunojejunostomy including multiple small bowel resection and anastomosis as well as revised gastrojejunostomy. Lysis of adhesions extensive performed with total procedure over 4 hours. No complications occurred throughout the case.
[2024-02-23] MEDS: 0.9% NACL WITH KCL 20 MEQ/L 1,000 ML IV SCH (08:03)
[2024-02-23 09:19] LABS: Basophils # (A) 0.03 X 10*3/uL (0.00-0.10); Basophils % (A) 0.3 %; Eosinophils # (A) 0 X 10*3/uL (0.04-0.35); Eosinophils % (A) 0 %; HCT 35.7 % (37.2-46.3); HGB 11.6 g/dL (12.0-15.0); Lymphocytes # (A) 1.21 X 10*3/uL (0.90-5.00); Lymphocytes % (A) 10.2 %; MCH 30.3 pg (27.0-32.0); MCHC 32.5 g/dL (32.0-37.0); MCV 93.2 FL (80.0-97.0); Mean Platelet Volume 10.1 FL (9.5-12.2); Monocytes # (A) 0.78 X 10*3/uL (0.20-1.00); Monocytes % (A) 6.6 %; NRBC Per 100 WBC 0 X 10*3/uL (0.00-0.01); Neutrophils # (A) 9.77 X 10*3/uL (1.80-7.70); Neutrophils % (A) 82.6 %; Platelet Count 236 X 10*3/uL (140-440); RBC 3.83 X 10*6/uL (4.10-5.20); RDW 12.2 % (11.5-14.5); WBC 11.83 X 10*3/uL (4.50-10.00)
[2024-02-23] MEDS: SYMBICORT 80-4.5 MCG INHALER INHALATION SCH (09:24)
[2024-02-23] MEDS: IPRATROPIUM-ALBUTEROL 3 ML NEB INHALATION SCH (09:25)
[2024-02-23 09:33] LABS: Blood Urea Nitrogen 9.9 mg/dL (9.0-27.0); Calcium 8.6 mg/dL (8.7-10.3); Chloride 108 mmol/L (96-109); Magnesium 1.6 mg/dL (1.5-2.4); Phosphorus 3.6 mg/dL (2.4-5.1); Potassium 4.7 mmol/L (3.5-5.5); Sodium 143 mmol/L (135-145)
[2024-02-23] MEDS: IPRATROPIUM 0.5 MG/2.5 ML NEBU INHALATION SCH (09:34)
[2024-02-23] MEDS: SUMAtriptan succinate 50 MG TAB PO PRN (10:16)
--- NOTE | 2024-02-23 13:13 | XR ---
EXAMINATION TYPE: XR abdomen 2V DATE OF EXAM: 02/23/2024 1:08 PM CLINICAL INDICATION:Female, 58 years old with history of POST OP BARIATRIC SURGERY; [facility] COMPARISON: 02/10/2023. TECHNIQUE: 3 views of the abdomen after administration of water-soluble contrast. FINDINGS: Post surgical changes to the bowel without evidence for extravasation. IMPRESSION: Post surgical changes to the bowel without evidence of extravasation.
--- NOTE | 2024-02-23 18:13 | P.PN ---
Progress Note - Text Progress Note Date: 02/23/24 CHIEF COMPLAINT: Chronic Marginal Ulcers HISTORY OF PRESENT ILLNESS: NAEO. Pain is tolerable. Denies Nausea PHYSICAL EXAM: VITAL SIGNS: Reviewed CONSTITUTIONAL: Well developed and in no acute distress. EYES: Conjuctivae without sclera icterus. Legally blind. HEAD, EARS, NOSE, THROAT: Moist buccal mucosa. Head is atraumatic, normocephalic. Hears conversational speech. No nasal drainage. RESPIRATORY: Non-labored respirations and equal bilateral excursions. CARDIOVASCULAR: Palpable 2+ radial pulses. ABDOMEN: Incision C/D/I MUSCULOSKELETAL: No gross deformity of the lower extremities noted. No clubbing. No cyanosis. SKIN: Good skin turgor. Well perfused. NEUROLOGIC: Cranial nerves II through XII grossly intact. No focal or lateralizing signs. PSYCH: Appropriate affect. Alert and oriented to person, place and time. CLINICAL LABS: Reviewed. ASSESSMENT: 1. Robotic Redo/Revision of RNY Gastric Bypass for Chronic Marginal Ulcers and Short Albert Limb PLAN: 1. Phase 1 Bariatric Diet 2. Pain and Nausea Control 3. OOB, ambulate, IS
[2024-02-24] MEDS: PIPERACILLIN-TAZOBACTAM 3.375 GM in SODIUM CHLORIDE 0.9% 100 ML IVPB STA (08:29)
--- NOTE | 2024-02-24 08:55 | P.PN ---
Subjective Progress Note Date: 02/24/24 CHIEF COMPLAINT: Chronic gastrojejunal ulcers HISTORY OF PRESENT ILLNESS: The patient is a 58-year-old female with presents a history of chronic gastrojejunal ulcers with perforation. She is status post revision of gastric bypass. "I feel good." "I have had minimal nausea, pain is fine." Patient reports feeling the best she has had since all her prior surgeries. She is tolerating liquids. ROS: No reports of vomiting. Low-grade temperature less than 100.0 F. No new chest pain. PHYSICAL EXAM: VITAL SIGNS: Reviewed CONSTITUTIONAL: Well developed and in no acute distress. EYES: Conjuctivae without sclera icterus. Extraocular movements grossly intact. HEAD, EARS, NOSE, THROAT: Moist buccal mucosa. Head is atraumatic, normocephalic. Hears conversational speech. No nasal drainage. RESPIRATORY: Non-labored respirations and equal bilateral excursions. CARDIOVASCULAR: Palpable 2+ radial pulses. ABDOMEN: Incisions clean dry intact. MUSCULOSKELETAL: No gross deformity of the lower extremities noted. No clubbing. No cyanosis. SKIN: Good skin turgor. Well perfused. NEUROLOGIC: Cranial nerves II through XII grossly intact. No focal or lateralizing signs. PSYCH: Appropriate affect. Alert and oriented to person, place and time. CLINICAL LABS: Reviewed. WBC elevated 11.9, post reactive. ASSESSMENT: 1. Chronic gastrojejunal ulcers with perforations 2. Gastroesophageal reflux disease. 3. History of hiatal hernia. 4. Carpal tunnel syndrome. 5. Diabetes type 2. 6. Hypothyroidism. 7. Chronic obstructive pulmonary disease. 8. Anxiety. 9. Colon polyps. 10. Sleep apnea. 11. Previous history of morbid obesity due to excess calories 12. Obstructive sleep apnea. 13. Body mass index reduced from 36.8 down to 22.7 14. 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 History of perforated gastrojejunal ulcer 16. Reactive hypoglycemia 17. Chronic nausea 18. Intra-abdominal peritoneal adhesions 19. Fibromyalgia 20. Glucoma 21. Intractable severe postop nausea vomiting PLAN: 1. Extensive discussion including intraoperative findings were reviewed where complete revision of her gastric bypass was performed and patient has clinically responded and doing very well. Due to the extensive circumstance and nature of her surgery, continue with postprocedural antibiotics in this case Zosyn. 2. Patient has low-grade temperature and incentive spirometry described 3. Disposition 24 hours pending clinical improvement 4. CBC and CMP ordered. Objective - Vital Signs Vital signs: Vital Signs Temp 98.4 F 02/24/24 07:03 Pulse 83 02/24/24 07:03 Resp 18 02/24/24 07:03 BP 120/68 02/24/24 07:03 Pulse Ox 90 L 02/24/24 07:03 FiO2 Intake & Output 02/23/24 02/24/24 02/24/24 18:59 06:59 18:59 Intake Total 1200 Balance 1200 Intake: Intake, IV Titration 1200 Amount 0.9% NaCl with KCl 20 Meq 1200 /l 1,000 ml @ 100 mls/hr IV .Q10H LEONARDO Rx#: [id number] Other: Voiding Method Toilet # Voids 1 3 - Labs CBC & Chem 7: 02/23/24 06:29 02/23/24 06:29 Labs: Abnormal Lab Results - Last 24 Hours (Table) 02/23/24 02/23/24 Range/Units 06:29 06:29 WBC 11.83 H (4.50-10.00) X 10*3/uL RBC 3.83 L (4.10-5.20) X 10*6/uL Hgb 11.6 L (12.0-15.0) g/dL Hct 35.7 L (37.2-46.3) % Neutrophils # 9.77 H (1.80-7.70) X 10*3/uL Eosinophils # 0 L (0.04-0.35) X 10*3/uL Calcium 8.6 L (8.7-10.3) mg/dL
[2024-02-24 10:54] LABS: Basophils # (A) 0.1 k/uL (0-0.2); Basophils % (A) 1 %; Eosinophils # (A) 0.1 k/uL (0-0.7); Eosinophils % (A) 1 %; HCT 38.5 % (34.0-46.0); HGB 11.6 gm/dL (11.4-16.0); Lymphocytes # (A) 1.3 k/uL (1.0-4.8); Lymphocytes % (A) 18 %; MCH 29.3 pg (25.0-35.0); MCHC 30.2 g/dL (31.0-37.0); Mean Platelet Volume 7.8; Monocytes # (A) 0.5 k/uL (0-1.0); Monocytes % (A) 6 %; Neutrophils # (A) 5.5 k/uL (1.3-7.7); Neutrophils % (A) 73 %; Platelet Count 203 k/uL (150-450); RBC 3.97 m/uL (3.80-5.40); RDW 12.5 % (11.5-15.5); WBC 7.5 k/uL (3.8-10.6)
[2024-02-24 11:02] LABS: ALT 8 U/L (4-34); AST 24 U/L (14-36); African American GFR (CKD) >90 (>60 ml/min/1.73 sqM); Albumin 3.3 g/dL (3.5-5.0); Albumin/Globulin Ratio 1.4; Alkaline Phosphatase 45 U/L (38-126); Anion Gap 4 mmol/L; Blood Urea Nitrogen 6 mg/dL (7-17); Carbon Dioxide 26 mmol/L (22-30); Chloride 107 mmol/L (98-107); Globulin 2.3 g/dL; Glucose 92 mg/dL (74-99); Non-African American GFR(CKD) >90 (>60 ml/min/1.73 sqM); Potassium 4.5 mmol/L (3.5-5.1); Sodium 137 mmol/L (137-145); Total Bilirubin 0.9 mg/dL (0.2-1.3); Total Protein 5.6 g/dL (6.3-8.2)
[2024-02-24] MEDS: SUMAtriptan succinate 50 MG TAB PO SCH (12:59)
[2024-02-24] MEDS: BUTALB/APAP/CAFF 50-325-40MG TAB PO PRN (14:31)
[2024-02-24] MEDS: PIPERACILLIN-TAZOBACTAM 3.375 GM in SODIUM CHLORIDE 0.9% 100 ML IVPB SCH (15:56)
[2024-02-24] MEDS: diphenhydrAMINE 50 MG/ML 1 ML VIAL IVP PRN (17:23)
[2024-02-25 07:29] VITALS: RESP 16
[2024-02-25 14:06] VITALS: BP 115/80; PULSE 82; TEMP 98.2
--- NOTE | 2024-02-25 14:32 | P.DS ---
Providers Date of admission: 02/22/24 12:04 Expected date of discharge: 02/25/24 Attending physician: Nu Stewart Primary care physician: Charleen Poe [facility] Course: POSTOPERATIVE DIAGNOSES: 1. Chronic gastrojejunal ulcers with perforations 2. Gastroesophageal reflux disease. 3. History of hiatal hernia. 4. Carpal tunnel syndrome. 5. Diabetes type 2. 6. Hypothyroidism. 7. Chronic obstructive pulmonary disease. 8. Anxiety. 9. Colon polyps. 10. Sleep apnea. 11. Previous history of morbid obesity due to excess calories 12. Obstructive sleep apnea. 13. Body mass index reduced from 36.8 down to 22.7 14. 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 History of perforated gastrojejunal ulcer 16. Reactive hypoglycemia 17. Chronic nausea 18. Intra-abdominal peritoneal adhesions 19. Fibromyalgia 20. Glucoma 21. Intractable severe postop nausea vomiting COURSE: Josefina Locke is a 58-year-old female who comes with prior sleeve gastrectomy converted to gastric bypass due to intractable gastroesophageal reflux disease. Patient developed multiple perforations along her gastrojejunal anastomosis due to ulcers despite high-dose medications. Conversion of a gastrojejunostomy to esophagojejunostomy was described. Patient underwent complete revision of her gastric bypass to correct her ulcerations and abdominal pain. Patient postoperatively was tolerating diet. Her postop nausea was very minimal. Her pain was very well-controlled. Bariatric postop diet was described. Follow-up in the bariatric center in 48 hours described. Pertinent Studies: Esophagram reviewed demonstrating no evidence of leak or obstruction. Procedures: OPERATION: 1. Robotic assisted da Sunday Xi laparoscopic lysis of adhesions of perigastric adhesions and intra-abdominal adhesions 2. Robotic assisted da Sunday Xi laparoscopic takedown of prior gastric bypass including small bowel resection with anastomosis and revision of jejunojejunosto my, including partial gastrectomy with revision of gastrojejunostomy 3. Robotic assisted da Sunday Xi laparoscopic complete revision of Albert-en-Y gastric bypass, 100 cm antecolic antegastric Albert limb, with 25 mm EEA. 4. Intraoperative esophagogastrojejunoscopy. 5. Robotic assisted da Sunday Xi laparoscopic reduction of recurrent diaphragmatic hiatal hernia ANESTHESIA: GETA and local, regional block ESTIMATED BLOOD LOSS: 40 mL SPECIMENS REMOVED: None. COMPLICATIONS: NONE. Operative Findings: 1. Prior Albert length 40 cm with short length preventing revision of gastrojejunostomy due to proposed tension for new revision 2. Torsion of gastrojejunal anastomosis with stricture 3. Perigastric upper abdominal peritoneal adhesions 4. Takedown of prior jejunojejunostomy due to short length of gastric bypass from 40 cm to revised 100 cm 5. Resection of gastrojejunostomy anastomosis of stricture 6. Prior gastric pouch length of 10 cm reduced to 4 cm 7. Recurrent diaphragmatic hiatal hernia identified and reduced 8. Jejunojejunostomy closed using 2-0 V-LOC, green 9. Cardenas's defect closed due to adhesions 10. Leak test negative with gastrojejunal anastomosis widely patent and h emostatic. 11. Reinforcement sutures were placed along the gastrojejunal anastomosis at 3:00, 9:00 and 12:00. Patient Condition at Discharge: Good Plan - Discharge Summary Discharge Rx Participant: No New Discharge Prescriptions: New bisacodyL [Dulcolax] 5 mg PO DAILY PRN #10 tab PRN Reason: Constipation Acetaminophen Tab [Tylenol Tab] 1,000 mg PO Q6HR PRN #30 tablet PRN Reason: Pain Simethicone 40 mg/0.6 ml Drops [Mylicon Drops] 40 mg PO PCHS PRN #30 ml PRN Reason: Gas Omeprazole [PriLOSEC] 40 mg PO DAILY #30 cap Ondansetron Odt [Zofran Odt] 4 mg PO Q8HR PRN #9 tab PRN Reason: Nausea Continue SUMAtriptan succinate [Imitrex] 100 mg PO DAILY PRN #30 tab PRN Reason: MIGRAINES Albuterol Sulfate [Proair Hfa] 2 puff INHALATION RT-Q6H PRN PRN Reason: Shortness Of Breath modafiniL [Provigil] 200 mg PO BID PRN PRN Reason: to stay awake Olmesartan [Benicar] 20 mg PO DAILY Levothyroxine Sodium [Synthroid] 37.5 mcg PO HS ALPRAZolam [ALPRAZolam XR] 0.5 mg PO BID PRN PRN Reason: Anxiety Fluticasone/Umeclidin/Vilanter [Trelegy Ellipta 100-62.5-25] 1 puff INHALATION RT-DAILY Pantoprazole [Protonix] 40 mg PO BID #60 tab Butalb/Acetaminophen/Caffeine [Fioricet 50-300-40 mg Capsule] 1 cap PO BID PRN PRN Reason: Migraine Headache Discontinued Sucralfate [Carafate] 1 gm PO ACHS #120 tablet Unk Multi Vitamin 1 tab PO DAILY Discharge Medication List SUMAtriptan succinate [Imitrex] 100 mg PO DAILY PRN #30 tab 12/20/21 [Rx] ALPRAZolam [ALPRAZolam XR] 0.5 mg PO BID PRN 04/13/22 [History] Levothyroxine Sodium [Synthroid] 37.5 mcg PO HS 04/13/22 [History] Fluticasone/Umeclidin/Vilanter [Trelegy Ellipta 100-62.5-25] 1 puff INHALATION RT-DAILY 05/02/22 [History] Pantoprazole [Protonix] 40 mg PO BID #60 tab 02/07/23 [Rx] Albuterol Sulfate [Proair Hfa] 2 puff INHALATION RT-Q6H PRN 11/27/23 [History] Butalb/Acetaminophen/Caffeine [Fioricet 50-300-40 mg Capsule] 1 cap PO BID PRN 11/27/23 [History] modafiniL [Provigil] 200 mg PO BID PRN 11/27/23 [History] Olmesartan [Benicar] 20 mg PO DAILY 01/09/24 [History] Acetaminophen Tab [Tylenol Tab] 1,000 mg PO Q6HR PRN #30 tablet 02/25/24 [Rx] Omeprazole [PriLOSEC] 40 mg PO DAILY #30 cap 02/25/24 [Rx] Ondansetron Odt [Zofran Odt] 4 mg PO Q8HR PRN #9 tab 02/25/24 [Rx] Simethicone 40 mg/0.6 ml Drops [Mylicon Drops] 40 mg PO PCHS PRN #30 ml 02/25/24 [Rx] bisacodyL [Dulcolax] 5 mg PO DAILY PRN #10 tab 02/25/24 [Rx] Follow up Appointment(s)/Referral(s): Bariatric [place], [place] [NON-STAFF] - 02/27/24 2:00 pm Patient Instructions/Handouts: Nutrition after Bariatric Surgery (GEN), Albert-en-Y Gastric Bypass (DC) Activity/Diet/Wound Care/Special Instructions: Liquid diet only for 2 weeks until March 07December Shower. No soaking in bath tubs 2 weeks until March 07 Continue to use incentive spirometry to prevent pneumonias. Please continue to ambulate at home to prevent blood clots in legs. Please notify your surgeon if you develop nausea and vomiting including new onset of abdominal pain. No lifting over 4 pounds in 4 weeks, Mar 24 Drink 64 oz of fluid daily. Start protein shakes on . Notify bariatric center for temp over 101.0, increased pain, drainage from incisions. No straws or carbonated beverages. Liquid diet only. Sugar content should be less than 6 g to avoid dumping syndrome. Take MOM for constipation. CRUSH, OPEN, OR CUT TABLETS LARGER THAN A SIZE OF A TIC TAC Discharge Disposition: HOME SELF-CARE
== END 2024-02-25 15:26 | disposition home or self-care (01) | DRG 328 ==
LOC: 2ORMAIN 12:04 → 4SSUR 19:57
PROVIDERS: ADMIT Surgery Plastic and Reconstructive Surgery; ATTEND Surgery Plastic and Reconstructive Surgery
PROC: 0BQT4ZZ Repair Diaphragm, Percutaneous Endoscopic Approach (ICD-10-PCS; principal; 2024-02-22 12:25)
PROC: 0D164ZA Bypass Stomach to Jejunum, Percutaneous Endoscopic Approach (ICD-10-PCS; principal; 2024-02-22 12:25)
PROC: 8E0W4CZ Robotic Assisted Procedure of Trunk Region, Percutaneous Endoscopic Approach (ICD-10-PCS; principal; 2024-02-22 12:25)
PROC: 0DQV4ZZ Repair Mesentery, Percutaneous Endoscopic Approach (ICD-10-PCS; principal; 2024-02-22 12:25)
PROC: 0DJ08ZZ Inspection of Upper Intestinal Tract, Via Natural or Artificial Opening Endoscopic (ICD-10-PCS; principal; 2024-02-22 12:25)
DX: K28.5 Chronic or unspecified gastrojejunal ulcer with perforation (principal); R16.0 Hepatomegaly, not elsewhere classified; E11.9 Type 2 diabetes mellitus without complications; E03.9 Hypothyroidism, unspecified; J44.9 Chronic obstructive pulmonary disease, unspecified; I10 Essential (primary) hypertension; K66.0 Peritoneal adhesions (postprocedural) (postinfection); K44.9 Diaphragmatic hernia without obstruction or gangrene; K21.9 Gastro-esophageal reflux disease without esophagitis; G89.29 Other chronic pain; G43.909 Migraine, unspecified, not intractable, without status migrainosus; F41.9 Anxiety disorder, unspecified; G47.33 Obstructive sleep apnea (adult) (pediatric); M13.0 Polyarthritis, unspecified; M79.7 Fibromyalgia; H40.10X0 Unspecified open-angle glaucoma, stage unspecified; Z79.51 Long term (current) use of inhaled steroids; Z79.891 Long term (current) use of opiate analgesic; Z79.890 Hormone replacement therapy; Z79.899 Other long term (current) drug therapy; Z87.891 Personal history of nicotine dependence; Z98.84 Bariatric surgery status; Z91.040 Latex allergy status; Z88.6 Allergy status to analgesic agent; Z88.8 Allergy status to other drugs, medicaments and biological substances
CPT/HCPCS: 64999; 74019; 80051; 80053; 82310; 82565; 83735; 84100; 84520; 85025; 94640; 94760

== ENCOUNTER → 2024-03-12 | Outpatient (CLI) | payer OTHER ==
[2024-03-12 13:49] VITALS: BP 109/74; PULSE 63; RESP 16; TEMP 98.1; BMI 22.3
--- NOTE | 2024-03-12 14:26 | P.BASOAP ---
Subjective Progress Note Date: 03/12/24 Apr 07 RTW due to complex surgery. NO more reflux. Has expected abdominal pain. February 21. Plan for Apr 07. FU Apr 02. 6 weeks of recovery. She is itchy at night with benadryl. Use Eucerin/Cerave for skin. Stop cocoa butter. Use massage ball vibrating 15 min three times daily. No infection. Objective - Vital Signs Vital signs: Vital Signs Temp 98.1 F 03/12/24 13:40 Pulse 63 03/12/24 13:40 Resp 16 03/12/24 13:40 BP 109/74 03/12/24 13:40 Pulse Ox FiO2 Intake & Output 03/11/24 03/12/24 03/12/24 18:59 06:59 18:59 Weight 55.338 kg Assessment/Plan Plan: Date: 03/12/24 Initial Weight: 91.308 kg Initial BMI: 36.8 Current Weight: 55.338 kg Current BMI: 22.3 Type of Surgery: Total Volume in Band: Previous Volume: Volume Removed: Volume Added: Band Size:
== END ==
LOC: BARWHC3 13:07
PROVIDERS: ATTEND Surgery Plastic and Reconstructive Surgery
DX: R10.9 Unspecified abdominal pain (principal)
CPT/HCPCS: 99211

== ENCOUNTER 2024-04-16 01:37 | Emergency (ER) | payer OTHER ==
--- NOTE | 2024-04-16 02:07 | ED ---
Arrhythmia/Palpitations HPI - General Source: patient, RN notes reviewed Mode of arrival: wheelchair Limitations: no limitations - History of Present Illness MD Complaint: palpitations <Rere Brandon - Last Filed: 04/16/24 02:06> - General Source: RN notes reviewed, old records reviewed Mode of arrival: wheelchair Limitations: no limitations - History of Present Illness Complaint: palpitations -: days(s) Associated Symptoms: denies other symptoms Treatments Prior to Arrival: other (0) <Ajith Owusu - Last Filed: 04/25/24 02:11> - General Chief Complaint: Arrhythmia/Palpitations Stated Complaint: syncope dizzy Time Seen by Provider: 04/16/24 02:00 - History of Present Illness Initial Comments: Quick Note: This is a 58-year-old female who presents to the emergency department for lightheadedness, palpitations, and blurred vision. Symptoms started yesterday. Denies a history of similar symptoms in the past. Reports chronic shortness of breath related to COPD, but does not believe that it is any worse than usual. Denies any chest pain. (Rere Brandon) This is a 58 female to the ER for palpitations blurry vision lightheadedness shortness of breath decreased appetite and low blood sugar patient is also complaining of headache migraine type headache (Ajith Owusu) - Related Data Home Medications Medication Instructions Recorded Confirmed ALPRAZolam [ALPRAZolam XR] 0.5 mg PO BID PRN 04/13/22 04/22/24 Levothyroxine Sodium [Synthroid] 37.5 mcg PO DAILY 04/13/22 04/22/24 Fluticasone/Umeclidin/Vilanter 1 puff INHALATION RT-DAILY 05/02/22 04/22/24 [Trelegy Ellipta 100-62.5-25] Albuterol Sulfate [Proair Hfa] 2 puff INHALATION RT-Q6H PRN 11/27/23 04/22/24 Butalb/Acetaminophen/Caffeine 1 cap PO BID PRN 11/27/23 04/22/24 [Fioricet 50-300-40 mg Capsule] modafiniL [Provigil] 200 mg PO BID PRN 11/27/23 04/22/24 Olmesartan [Benicar] 20 mg PO HS 01/09/24 04/22/24 Magnesium 200 mg PO DAILY 04/22/24 04/22/24 Multivitamins, Thera [Multivitamin 1 tab PO DAILY 04/22/24 04/22/24 (formulary)] Potassium Citrate 99 mg PO DAILY 04/22/24 04/22/24 Previous Rx's Medication Instructions Recorded SUMAtriptan succinate [Imitrex] 100 mg PO DAILY PRN #30 tab 12/20/21 Omeprazole [PriLOSEC] 40 mg PO DAILY #30 cap 02/25/24 Ondansetron Odt [Zofran Odt] 4 mg PO Q8HR PRN #9 tab 02/25/24 Allergies Allergy/AdvReac Type Severity Reaction Status Date / Time latex Allergy states Verified 04/22/24 11:19 "feels like chest tightens" ibuprofen [From Motrin] AdvReac due to Verified 04/22/24 11:19 ulcers NSAIDS (Non-Steroidal AdvReac DUE TO Verified 04/22/24 11:19 Anti-Inflamma STOMACH ULCERS scopolamine AdvReac contraindictated Verified 04/22/24 11:19 with glaucoma Review of Systems ROS Other: All systems not noted in ROS Statement are negative. <Rere Brandon - Last Filed: 04/16/24 02:06> ROS Other: All systems not noted in ROS Statement are negative. <Ajith Owusu - Last Filed: 04/25/24 02:11> ROS Statement: Those systems with pertinent positive or pertinent negative responses have been documented in the HPI. Past Medical History Past Medical History: Chest Pain / Angina, COPD, Eye Disorder, Fibromyalgia, GERD/Reflux, Hypertension, Thyroid Disorder Additional Past Medical History / Comment(s): 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 Migraines, hiatal hernia, thyroid nodule. Gastrojejunal perforation, pneumoperitoneum, generalized arthritis. upper abdominal pain due to hernia, glaucoma. History of Any Multi-Drug Resistant Organisms: None Reported Past Surgical History: Bariatric Surgery, Breast Surgery, Cholecystectomy, Uterine Ablation Additional Past Surgical History / Comment(s): EXPLORATORY OF AUGUST 27, HERNIA BOWEL HORVATH SPACE DEFECT @[facility] 08-27-19. 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 Surgery for pneumoperitoneum 04/2018 @ [facility]. Adhesiolysis 09/2018. Colonoscopy with upper endoscopy 2017. Gastric sleeve (03/2016). ulcer repair, Revision of Albert en y and lysis of adhesions 02/22/24 Past Anesthesia/Blood Transfusion Reactions: Motion Sickness, Postoperative Nausea & Vomiting (PONV) Additional Past Anesthesia/Blood Transfusion Reaction / Comment(s): Has never received blood Past Psychological History: Anxiety Smoking Status: Former smoker Past Alcohol Use History: Rare Past Drug Use History: None Reported - Past Family History Mother Additional Family Medical History / Comment(s): Emphysema. Maternal great aunt had breast cancer. Father Additional Family Medical History / Comment(s): river pilot w/ plane crash- age 23. Paternal grandmother had breast cancer. <Rere Brandon - Last Filed: 04/16/24 02:06> General Exam Limitations: no limitations <Rere Brandon - Last Filed: 04/16/24 02:06> General appearance: alert, in no apparent distress Head exam: Present: atraumatic, normocephalic, normal inspection Eye exam: Present: normal appearance, PERRL, EOMI. Absent: scleral icterus, conjunctival injection, periorbital swelling ENT exam: Present: normal exam, mucous membranes moist Neck exam: Present: normal inspection. Absent: tenderness, meningismus, lymphadenopathy Respiratory exam: Present: normal lung sounds bilaterally. Absent: respiratory distress, wheezes, rales, rhonchi, stridor Cardiovascular Exam: Present: regular rate, normal rhythm, normal heart sounds. Absent: systolic murmur, diastolic murmur, rubs, gallop, clicks GI/Abdominal exam: Present: soft, normal bowel sounds. Absent: distended, tenderness, guarding, rebound, rigid Extremities exam: Present: normal inspection, full ROM, normal capillary refill. Absent: tenderness, pedal edema, joint swelling, calf tenderness Back exam: Present: normal inspection Neurological exam: Present: alert, oriented X3, CN II-XII intact Psychiatric exam: Present: normal affect, normal mood Skin exam: Present: warm, dry, intact, normal color. Absent: rash <Ajith Owusu - Last Filed: 04/25/24 02:11> - General Exam Comments Initial Comments: Visual Physical Exam Vital signs reviewed General: Well-appearing, nontoxic, no acute distress. Head: Normocephalic, atraumatic Eyes: PERRLA, EOMI ENT: Airway patent Chest: Nonlabored breathing Skin: No visual rash, normal skin tone Neuro: Alert and oriented 3 Musculoskeletal: No gross abnormalities (Rere Brandon) Course <Ajith Owusu - Last Filed: 04/25/24 02:11> Vital Signs 04/16/24 04/16/24 04/16/24 01:55 03:17 04:33 Temperature 98.1 F 97.7 F Pulse Rate 71 61 86 Respiratory 18 18 18 Rate Blood Pressure 158/83 141/81 173/103 O2 Sat by Pulse 98 97 100 Oximetry 04/16/24 04/16/24 05:08 05:53 Temperature Pulse Rate 68 65 Respiratory 16 16 Rate Blood Pressure 164/85 142/90 O2 Sat by Pulse 100 96 Oximetry - Reevaluation(s) Reevaluation #1: 04/16/24 04:39 Medical records reviewed (Ajith Owusu) Reevaluation #2: 04/16/24 04:39 Patient symptoms improved (Ajith Owusu) Reevaluation #3: Patient informed of results and questions answered (Ajith Owusu) Reevaluation #4: Was pt. sent in by a medical professional or institution (, PA, INTERNET MARKETING STRATEGIST, urgent care, hospital, or retirement...) When possible be specific @ -no Did you speak to anyone other than the patient for history (EMS, parent, family, police, friend...)? What history was obtained from this source @ -no Did you review nursing and triage notes (agree or disagree)? Why? @ -agree Are old charts reviewed (outside hosp., previous admission, EMS record, old EKG, old radiological studies, urgent care reports/EKG's, retirement records)? Report findings @ -yes Differential Diagnosis (chest pain, altered mental status, abdominal pain women, abdominal pain men, vaginal bleeding, weakness, fever, dyspnea, syncope, headache, dizziness, GI bleed, back pain, seizure, CVA, palpatations, mental health, musculoskeletal)? @ -prior EKG interpreted by me (3pts min.). @ -yes X-rays interpreted by me (1pt min.). @ -yes negative for acute disease CT interpreted by me (1pt min.). @ -Negative for acute disease U/S interpreted by me (1pt. min.). @ -no What testing was considered but not performed or refused? (CT, X-rays, U/S, labs)? Why? @ -none What meds were considered but not given or refused? Why? @ -none Did you discuss the management of the patient with other professionals (professionals i.e. Dr., PA, INTERNET MARKETING STRATEGIST, lab, RT, psych nurse, oncology social worker, canal structure operator, teacher, tank officer, case mgr)? Give summary @ -no Was smoking cessation discussed for >3mins.? @ -no Was critical care preformed (if so, how long)? @ -no Were there social determinants of health that impacted care today? How? (Homelessness, low income, unemployed, alcoholism, drug addiction, transportation, low edu. Level, literacy, decrease access to med. care, usp, rehab)? @ -none Was there de-escalation of care discussed even if they declined (Discuss DNR or withdrawal of care, Hospice)? DNR status @ -no What co-morbidities impacted this encounter? (DM, HTN, Smoking, COPD, CAD, Cancer, CVA, ARF, Chemo, Hep., AIDS, mental health diagnosis, sleep apnea, morbid obesity)? @ -none Was patient admitted / discharged? Hospital course, mention meds given and route, prescriptions, significant lab abnormalities, going to OR and other pertinent info. @ - 58 female to the ER for evaluation of not feeling well now, patient has palpitations low blood sugar decreased appetite not feeling well with migraine headache, feeling much improved here in the ER testing is normal patient can be discharged home Discharge Undiagnosed new problem with uncertain prognosis? @ -no Drug Therapy requiring intensive monitoring for toxicity (Heparin, Nitro, Insulin, Cardizem)? @ -no Were any procedures done? @ -no Diagnosis/symptom? @ -Migraine headache palpitations Acute, or Chronic, or Acute on Chronic? @ -Acute Uncomplicated (without systemic symptoms) or Complicated (systemic symptoms)? @ -Complicated Side effects of treatment? @ -no Exacerbation, Progression, or Severe Exacerbation? @ -exacerbation Poses a threat to life or bodily function? How? (Chest pain, USA, MD, pneumonia, PE, COPD, DKA, ARF, appy, cholecystitis, CVA, Diverticulitis, Homicidal, Suicidal, threat to staff... and all critical care pts) @ -yes yes with arrhythmia (Ajith Owusu) Reevaluation #5: Differential Headache: Migraine, tension, cluster, carbon monoxide, central venous thrombosis, pension karma temporal arteritis, acute closure glaucoma, intercranial hemorrhage, mastoiditis, sinusitis, head injury, this is not meant to be an all-inclusive l ist. Differential Palpitations Ventricular arrhythmias, atrial arrhythmias, myocardial infarction, anemia, thyrotoxicosis, electrolyte imbalance, hypokalemia, pulmonary embolism, pulmonary disease, drugs, alcohol, anxiety, stress.... This is not meant to be an all-inclusive list. (Ajith Owusu) EKG Findings - EKG Comments: EKG Findings:: EKG is sinus 64 ME 183 QRS 88 QTc 396 - EKG Results: EKG: interpreted by ERMD <Ajith Owusu - Last Filed: 04/25/24 02:11> Medical Decision Making <Rere Brandon - Last Filed: 04/16/24 02:06> - Lab Data Result diagrams: 04/16/24 02:14 04/16/24 02:14 - EKG Data -: EKG Interpreted by Nh - Radiology Data Radiology results: report reviewed (CT brain and chest x-ray are negative for acute disease), image reviewed <Ajith Owusu - Last Filed: 04/25/24 02:11> - Medical Decision Making I performed the QuickNote portion of this chart. Signed Rere Brandon PA-C. (Rere Brandon) 58 female to the ER for evaluation of not feeling well now, patient has palpitations low blood sugar decreased appetite not feeling well with migraine headache, feeling much improved here in the ER testing is normal patient can be discharged home (Ajith Owusu) - Lab Data Lab Results 04/16/24 04/16/24 04/16/24 Range/Units 02:14 02:14 02:14 WBC 6.0 (3.8-10.6) k/uL RBC 4.42 (3.80-5.40) m/uL Hgb 13.1 (11.4-16.0) gm/dL Hct 40.6 (34.0-46.0) % MCV 91.8 D (80.0-100.0) fL MCH 29.7 (25.0-35.0) pg MCHC 32.3 (31.0-37.0) g/dL RDW 13.5 (11.5-15.5) % Plt Count 337 (150-450) k/uL MPV 7.1 Neutrophils % 54 % Lymphocytes % 34 % Monocytes % 6 % Eosinophils % 3 % Basophils % 1 % Neutrophils # 3.2 (1.3-7.7) k/uL Lymphocytes # 2.0 (1.0-4.8) k/uL Monocytes # 0.4 (0-1.0) k/uL Eosinophils # 0.2 (0-0.7) k/uL Basophils # 0.1 (0-0.2) k/uL PT 10.6 (10.0-12.5) sec INR 1.0 (<1.2) APTT 24.1 (22.0-30.0) sec Sodium (137-145) mmol/L Potassium (3.5-5.1) mmol/L Chloride (98-107) mmol/L Carbon Dioxide (22-30) mmol/L Anion Gap mmol/L BUN (7-17) mg/dL Creatinine (0.52-1.04) mg/dL Est GFR (CKD-EPI)AfAm (>60 ml/min/1.73 sqM) Est GFR (CKD-EPI)NonAf (>60 ml/min/1.73 sqM) Glucose (74-99) mg/dL POC Glucose (mg/dL) (70-110) mg/dL POC Glu Development Specialist ID Calcium (8.4-10.2) mg/dL Magnesium (1.6-2.3) mg/dL Total Bilirubin (0.2-1.3) mg/dL AST (14-36) U/L ALT (4-34) U/L Alkaline Phosphatase (38-126) U/L Troponin I (0.000-0.034) ng/mL Total Protein (6.3-8.2) g/dL Albumin (3.5-5.0) g/dL Urine Color Colorless Urine Appearance Clear (Clear) Urine pH 6.5 (5.0-8.0) Ur Specific [place] 1.002 (1.001-1.035) Urine Protein Negative (Negative) Urine Glucose (UA) Negative (Negative) Urine Ketones Negative (Negative) Urine Blood Negative (Negative) Urine Nitrite Negative (Negative) Urine Bilirubin Negative (Negative) Urine Urobilinogen <2.0 (<2.0) mg/dL Ur Leukocyte Esterase Negative (Negative) 04/16/24 04/16/24 04/16/24 Range/Units 02:14 02:14 04:57 WBC (3.8-10.6) k/uL RBC (3.80-5.40) m/uL Hgb (11.4-16.0) gm/dL Hct (34.0-46.0) % MCV (80.0-100.0) fL MCH (25.0-35.0) pg MCHC (31.0-37.0) g/dL RDW (11.5-15.5) % Plt Count (150-450) k/uL MPV Neutrophils % % Lymphocytes % % Monocytes % % Eosinophils % % Basophils % % Neutrophils # (1.3-7.7) k/uL Lymphocytes # (1.0-4.8) k/uL Monocytes # (0-1.0) k/uL Eosinophils # (0-0.7) k/uL Basophils # (0-0.2) k/uL PT (10.0-12.5) sec INR (<1.2) APTT (22.0-30.0) sec Sodium 142 (137-145) mmol/L Potassium 3.1 L (3.5-5.1) mmol/L Chloride 105 (98-107) mmol/L Carbon Dioxide 28 (22-30) mmol/L Anion Gap 9 mmol/L BUN 7 (7-17) mg/dL Creatinine 0.67 (0.52-1.04) mg/dL Est GFR (CKD-EPI)AfAm >90 (>60 ml/min/1.73 sqM) Est GFR (CKD-EPI)NonAf >90 (>60 ml/min/1.73 sqM) Glucose 72 L (74-99) mg/dL POC Glucose (mg/dL) 151 H (70-110) mg/dL POC Glu Development Specialist ID Kerry Chang Calcium 9.5 (8.4-10.2) mg/dL Magnesium 1.7 (1.6-2.3) mg/dL Total Bilirubin 0.4 (0.2-1.3) mg/dL AST 25 (14-36) U/L ALT 22 (4-34) U/L Alkaline Phosphatase 64 (38-126) U/L Troponin I <0.012 (0.000-0.034) ng/mL Total Protein 6.8 (6.3-8.2) g/dL Albumin 4.4 (3.5-5.0) g/dL Urine Color Urine Appearance (Clear) Urine pH (5.0-8.0) Ur Specific [place] (1.001-1.035) Urine Protein (Negative) Urine Glucose (UA) (Negative) Urine Ketones (Negative) Urine Blood (Negative) Urine Nitrite (Negative) Urine Bilirubin (Negative) Urine Urobilinogen (<2.0) mg/dL Ur Leukocyte Esterase (Negative) Disposition <Rere Brandon - Last Filed: 04/16/24 02:06> Is patient prescribed a controlled substance at d/c from ED?: No Time of Disposition: 05:00 <Ajith Owusu - Last Filed: 04/25/24 02:11> Clinical Impression: Palpitations, Migraine Disposition: HOME SELF-CARE Condition: Good Instructions (If sedation given, give patient instructions): Heart Palpitations (ED) Referrals: Charleen Poe MD [Primary Care Provider] - 1-2 days
[2024-04-16 02:48] LABS: ALT 22 U/L (4-34); AST 25 U/L (14-36); African American GFR (CKD) >90 (>60 ml/min/1.73 sqM); Albumin 4.4 g/dL (3.5-5.0); Alkaline Phosphatase 64 U/L (38-126); Anion Gap 9 mmol/L; Blood Urea Nitrogen 7 mg/dL (7-17); Calcium 9.5 mg/dL (8.4-10.2); Carbon Dioxide 28 mmol/L (22-30); Chloride 105 mmol/L (98-107); Glucose 72 mg/dL (74-99); Magnesium 1.7 mg/dL (1.6-2.3); Non-African American GFR(CKD) >90 (>60 ml/min/1.73 sqM); Potassium 3.1 mmol/L (3.5-5.1); Sodium 142 mmol/L (137-145); Total Bilirubin 0.4 mg/dL (0.2-1.3); Total Protein 6.8 g/dL (6.3-8.2)
[2024-04-16 02:49] LABS: Basophils # (A) 0.1 k/uL (0-0.2); Basophils % (A) 1 %; Eosinophils # (A) 0.2 k/uL (0-0.7); Eosinophils % (A) 3 %; HCT 40.6 % (34.0-46.0); HGB 13.1 gm/dL (11.4-16.0); Lymphocytes % (A) 34 %; MCH 29.7 pg (25.0-35.0); MCHC 32.3 g/dL (31.0-37.0); Mean Platelet Volume 7.1; Monocytes # (A) 0.4 k/uL (0-1.0); Monocytes % (A) 6 %; Neutrophils # (A) 3.2 k/uL (1.3-7.7); Neutrophils % (A) 54 %; Platelet Count 337 k/uL (150-450); RBC 4.42 m/uL (3.80-5.40); RDW 13.5 % (11.5-15.5)
[2024-04-16 03:10] LABS: Partial Thromboplastin Time 24.1 sec (22.0-30.0); Prothrombin Time 10.6 sec (10.0-12.5)
--- NOTE | 2024-04-16 03:15 | CT ---
EXAM: CT Head Without Intravenous Contrast CLINICAL HISTORY: ITS.REASON CT Reason: Blurry vision, dizziness TECHNIQUE: Axial computed tomography images of the head/brain without intravenous contrast. CTDI is 49.2 mGy and DLP is 1095.4 mGy-cm. This CT exam was performed using one or more of the following dose reduction techniques: automated exposure control, adjustment of the mA and/or kV according to patient size, and/or use of iterative reconstruction technique. COMPARISON: No relevant prior studies available. FINDINGS: Brain: No hemorrhage or mass effect. Ventricles: No hydrocephalus. Bones/joints: Unremarkable. Soft tissues: Unremarkable. Sinuses: No air fluid level. Mastoid air cells: Clear. Orbits are intact IMPRESSION: No acute hemorrhage, hydrocephalus, or mass effect.
[2024-04-16 03:19] VITALS: TEMP 97.7
[2024-04-16 03:26] LABS: Appearance,Urine Clear (Clear); Bilirubin,Urine Negative (Negative); Blood,Urine Negative (Negative); Color,Urine Colorless; Glucose,Urine (UA) Negative (Negative); Ketones,Urine Negative (Negative); Leukocyte Esterase,Urine Negative (Negative); Nitrite,Urine Negative (Negative); PH, Urine 6.5 (5.0-8.0); Protein,Urine Negative (Negative); Specific Gravity,Urine 1.002 (1.001-1.035); Urobilinogen,Urine <2.0 mg/dL (<2.0)
--- NOTE | 2024-04-16 03:28 | XR ---
EXAM: XR Chest, 2 Views CLINICAL HISTORY: ITS.REASON XR Reason: dysrhythmia TECHNIQUE: Frontal and lateral views of the chest. COMPARISON: No relevant prior studies available. FINDINGS: Lungs: No consolidation or mass. Pleural space: No effusion. Heart: No cardiomegaly. Bones/joints: No acute findings. IMPRESSION: No acute cardiopulmonary process.
[2024-04-16] MEDS: SUMAtriptan succinate 50 MG TAB PO STA (03:30)
[2024-04-16] MEDS: POTASSIUM CHLORIDE ER 20 MEQ TAB.ER PO STA (03:30)
[2024-04-16 03:45] LABS: MCV 91.8 fL (80.0-100.0)
[2024-04-16] MEDS: SODIUM CHLORIDE 0.9% 1,000 ML IV STA (04:49)
[2024-04-16] MEDS: MAGNESIUM OXIDE 400 MG TAB PO STA (04:49)
[2024-04-16] MEDS: diphenhydrAMINE 50 MG/ML 1 ML VIAL IVP STA (04:50)
[2024-04-16] MEDS: PROCHLORPERAZINE INJ 10 MG/2 ML VIAL IVP STA (04:53)
[2024-04-16 04:58] LABS: Glucose,Whole Blood 151 mg/dL (70-110)
[2024-04-16] MEDS: POTASSIUM BICARBONATE/CIT AC 20 MEQ TABLET.EFF PO ONE ×2 (05:04→05:05)
[2024-04-16] MEDS: MORPHINE SULFATE 4 MG/ML SYRINGE IVP STA (05:05)
[2024-04-16 05:09] VITALS: RESP 16
[2024-04-16 05:54] VITALS: BP 142/90; PULSE 65
== END 2024-04-16 05:54 | disposition home or self-care (01) ==
LOC: EC 01:37
DX: R00.2 Palpitations (principal); G43.909 Migraine, unspecified, not intractable, without status migrainosus; Z87.891 Personal history of nicotine dependence; Z88.6 Allergy status to analgesic agent; Z91.040 Latex allergy status; Z88.8 Allergy status to other drugs, medicaments and biological substances; Z90.49 Acquired absence of other specified parts of digestive tract
CPT/HCPCS: 36415; 70450; 71046; 80053; 81003; 83735; 84484; 85025; 85610; 85730; 93005; 96361; 96374; 96375; 99285

== ENCOUNTER → 2024-04-23 | Outpatient (CLI) | payer OTHER ==
[2024-04-23 15:35] LABS: Basophils # (A) 0.04 X 10*3/uL (0.00-0.10); Basophils % (A) 0.8 %; Eosinophils # (A) 0.12 X 10*3/uL (0.04-0.35); Eosinophils % (A) 2.4 %; HCT 39.2 % (37.2-46.3); HGB 12.6 g/dL (12.0-15.0); Lymphocytes % (A) 38.5 %; MCH 30.1 pg (27.0-32.0); MCHC 32.1 g/dL (32.0-37.0); MCV 93.8 FL (80.0-97.0); Mean Platelet Volume 9.9 FL (9.5-12.2); Monocytes # (A) 0.52 X 10*3/uL (0.20-1.00); Monocytes % (A) 10.5 %; NRBC Per 100 WBC 0 X 10*3/uL (0.00-0.01); Neutrophils # (A) 2.35 X 10*3/uL (1.80-7.70); Neutrophils % (A) 47.6 %; Platelet Count 302 X 10*3/uL (140-440); RBC 4.18 X 10*6/uL (4.10-5.20); RDW 13.9 % (11.5-14.5); WBC 4.94 X 10*3/uL (4.50-10.00)
[2024-04-23 15:49] LABS: ALT 37 U/L (8-44); AST 54 U/L (13-35); Albumin 4.3 g/dL (3.8-4.9); Albumin/Globulin Ratio 2.26 Ratio (1.60-3.17); Alkaline Phosphatase 75 U/L (41-126); BUN/Creat Ratio 8.29 Ratio (12.00-20.00); Blood Urea Nitrogen 5.8 mg/dL (9.0-27.0); Calcium 9.4 mg/dL (8.7-10.3); Carbon Dioxide 27.4 mmol/L (21.6-31.8); Chloride 105 mmol/L (96-109); Globulin 1.9 g/dL (1.6-3.3); Glucose 56 mg/dL (70-110); Potassium 4.1 mmol/L (3.5-5.5); Sodium 143 mmol/L (135-145); Total Bilirubin 0.3 mg/dL (0.3-1.2); Total Protein 6.2 g/dL (6.2-8.2)
== END | disposition home or self-care (01) ==
LOC: LABWHC1 12:13
PROVIDERS: ATTEND Internal Medicine
DX: R42 Dizziness and giddiness (principal)
CPT/HCPCS: 36415; 80053; 83735; 85025

== ENCOUNTER 2024-04-28 06:31 | Day surgery (SDC) | payer OTHER ==
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
[2024-04-28] MEDS: IV FLUID CONTINUATION 1,000 ML IV ONE (07:09)
[2024-04-28 07:11] VITALS: RESP 16; TEMP 97.9
[2024-04-28] MEDS: LACTATED RINGERS 1,000 ML IV SCH (07:13)
[2024-04-28] MEDS ORDERED: LIDOCAINE 1% INJ 10MG/ML (20 ML MDV) ONE (07:27)
[2024-04-28] MEDS ORDERED: PROPOFOL 10 MG/ML 20 ML VIAL IV ONE (07:27)
--- NOTE | 2024-04-28 07:55 | P.PCN ---
Date of Procedure: 04/28/24 Description of Procedure: PREOPERATIVE DIAGNOSIS: Dysphagia. s/p Albert-en-y gastric bypass. Nausea with vomiting. POSTOPERATIVE DIAGNOSIS: Dysphagia. s/p Albert-en-y gastric bypass. Nausea with vomiting. Gastrojejunal stricture with chronic ulcer without perforation OPERATION: Esophagogastrojejunoscopy with balloon dilatation from 12 to 20 mm. SURGEON: Nu Stewart MD ANESTHESIA: MAC. INDICATIONS: The patient is a 58-year-old female who presents with a history of dysphagia, gastric bypass including nausea and vomiting. Benefits and risks of the procedure were described. Informed consent was obtained. DESCRIPTION: The patient was brought into the endoscopy suite and laid in the left lateral decubitus position. After a timeout was confirmed, the procedure was initiated. An Olympus gastroscope was passed along the posterior oropharynx down to the distal esophagus where the squamocolumnar junction was unremarkable. The gastric pouch was entered. A gastrojejunal stricture of 12 mm was found as the adult gastroscope was 9.5 mm in size. A Diwanee balloon dilator was placed through the scope. Final insufflation up to 20 mm was performed with a total of 2 minutes. The scope was advanced up to 60 cm from the incisors into the Albert limb. The mucosa of the gastrojejunal anastomosis was intact. However chronic gastrojejunal marginal ulcer was encountered. No full-thickness injury was encountered. The GI tract was desufflated. The patient tolerated the procedure well. FINDINGS: Squamocolumnar junction unremarkable at 37 cm. Stricture of approximately 12 mm encountered. Chronic gastrojejunal ulceration encountered, 2-mm, with bleeding Successful balloon dilatation to 20 mm. Diaphragmatic hiatus at 40 cm. Gastric pouch 3 cm. RECOMMENDATIONS: Start combined therapy of Carafate 1 g TID for at least 4 weeks. Plan - Discharge Summary Discharge Rx Participant: No New Discharge Prescriptions: New Sucralfate [Carafate] 1 gm PO TID #120 tablet Continue SUMAtriptan succinate [Imitrex] 100 mg PO DAILY PRN #30 tab PRN Reason: MIGRAINES Albuterol Sulfate [Proair Hfa] 2 puff INHALATION RT-Q6H PRN PRN Reason: Shortness Of Breath modafiniL [Provigil] 200 mg PO BID PRN PRN Reason: to stay awake Olmesartan [Benicar] 20 mg PO HS Potassium Citrate 99 mg PO DAILY Magnesium 200 mg PO DAILY Levothyroxine Sodium [Synthroid] 37.5 mcg PO DAILY ALPRAZolam [ALPRAZolam XR] 0.5 mg PO BID PRN PRN Reason: Anxiety Fluticasone/Umeclidin/Vilanter [Trelegy Ellipta 100-62.5-25] 1 puff INHALATION RT-DAILY Butalb/Acetaminophen/Caffeine [Fioricet 50-300-40 mg Capsule] 1 cap PO BID PRN PRN Reason: Migraine Headache Omeprazole [PriLOSEC] 40 mg PO DAILY #30 cap Ondansetron Odt [Zofran ODT] 4 mg PO Q8HR PRN #9 tab PRN Reason: Nausea Multivitamins, Thera [Multivitamin (formulary)] 1 tab PO DAILY Discharge Medication List SUMAtriptan succinate [Imitrex] 100 mg PO DAILY PRN #30 tab 12/20/21 [Rx] ALPRAZolam [ALPRAZolam XR] 0.5 mg PO BID PRN 04/13/22 [History] Levothyroxine Sodium [Synthroid] 37.5 mcg PO DAILY 04/13/22 [History] Fluticasone/Umeclidin/Vilanter [Trelegy Ellipta 100-62.5-25] 1 puff INHALATION RT-DAILY 05/02/22 [History] Albuterol Sulfate [Proair Hfa] 2 puff INHALATION RT-Q6H PRN 11/27/23 [History] Butalb/Acetaminophen/Caffeine [Fioricet 50-300-40 mg Capsule] 1 cap PO BID PRN 11/27/23 [History] modafiniL [Provigil] 200 mg PO BID PRN 11/27/23 [History] Olmesartan [Benicar] 20 mg PO HS 01/09/24 [History] Omeprazole [PriLOSEC] 40 mg PO DAILY #30 cap 02/25/24 [Rx] Ondansetron Odt [Zofran ODT] 4 mg PO Q8HR PRN #9 tab 02/25/24 [Rx] Magnesium 200 mg PO DAILY 04/22/24 [History] Multivitamins, Thera [Multivitamin (formulary)] 1 tab PO DAILY 04/22/24 [History] Potassium Citrate 99 mg PO DAILY 04/22/24 [History] Sucralfate [Carafate] 1 gm PO TID #120 tablet 04/28/24 [Rx] [facility]Ref[place] [facility] [place] [place] - 04/30/24 4:30 pm Patient Instructions/Handouts: Esophageal Dilation (DC) Activity/Diet/Wound Care/Special Instructions: Warm beverages today prior to eating. Take carafate after crushing into a liquid Discharge Disposition: HOME SELF-CARE
[2024-04-28 08:19] VITALS: BP 155/85; PULSE 54
== END 2024-04-28 08:27 | disposition home or self-care (01) ==
LOC: ORWHC2ENDO 06:31
PROVIDERS: ATTEND Surgery Plastic and Reconstructive Surgery
DX: K91.89 Other postprocedural complications and disorders of digestive system (principal); K28.4 Chronic or unspecified gastrojejunal ulcer with hemorrhage; K22.2 Esophageal obstruction; K21.9 Gastro-esophageal reflux disease without esophagitis; K44.9 Diaphragmatic hernia without obstruction or gangrene; I10 Essential (primary) hypertension; I20.9 Angina pectoris, unspecified; J44.9 Chronic obstructive pulmonary disease, unspecified; E07.9 Disorder of thyroid, unspecified; M79.7 Fibromyalgia; F41.9 Anxiety disorder, unspecified; Z91.89 Other specified personal risk factors, not elsewhere classified; Z79.890 Hormone replacement therapy; Z79.51 Long term (current) use of inhaled steroids; Z79.899 Other long term (current) drug therapy; Z87.891 Personal history of nicotine dependence; Z88.6 Allergy status to analgesic agent; Z88.8 Allergy status to other drugs, medicaments and biological substances; Z91.040 Latex allergy status
CPT/HCPCS: 43245

== ENCOUNTER → 2024-05-28 | Outpatient (CLI) | payer OTHER ==
--- NOTE | 2024-05-28 10:07 | MR ---
EXAMINATION TYPE: MR pancreas wo/w con DATE OF EXAM: 05/28/2024 8:06 AM INDICATION: Patient age:Female; 58 years old; Reason for study: E16.2 HYPOGLYCEMIA COMPARISON: CT abdomen and pelvis 01/17/2024, 11/29/2023, 11/27/2023, 05/31/2023 TECHNIQUE: Multiplanar multi-sequence imaging was performed without and with IV contrast. The patien t was given 6 ccs of Gadavist intravenously and dynamic imaging was performed. Post IV contrast subtr action images were also submitted for review. FINDINGS: LOWER CHEST: No gross irregularity. ABDOMEN Liver: Unremarkable. Gallbladder and Bile ducts: Gallbladder is surgical absent. No significant intra and extrahepatic gloria iary duct dilatation. No gross evidence of filling defects within the bile ducts. Pancreas: No evidence of inflammatory changes or surrounding fluid collections. No pancreatic ductal dilatation. No enhancing lesions identified.. Spleen: Unremarkable. Adrenal glands: Unremarkable. Kidneys: No hydronephrosis. Exophytic left upper pole 1.1 cm thin-walled cyst.. Stomach and Bowel: Post surgical changes from Albert-en-Y gastric bypass. Small hiatal hernia. Peritoneum: No evidence of pneumoperitoneum, free fluid, or adenopathy. Vasculature: Unremarkable. No aortic aneurysm. Portal venous system is patent. Abdominal wall: Unremarkable. Musculoskeletal: The osseous structures appear intact. IMPRESSION: 1. No evidence of enhancing pancreatic mass or other enhancing abdominal masses. 2. Postsurgical changes from Albert-en-Y gastric bypass with small hiatal hernia. [facility], , 05/28/2024 10:04 AM
== END | disposition home or self-care (01) ==
LOC: RADMRIMAIN 07:15
PROVIDERS: ATTEND Internal Medicine
DX: E16.2 Hypoglycemia, unspecified
CPT/HCPCS: 74183

== ENCOUNTER 2024-06-06 08:55 | Day surgery (SDC) | payer OTHER ==
[2024-06-06 09:46] VITALS: RESP 16; TEMP 98.2
--- NOTE | 2024-06-06 10:15 | US ---
ULTRASOUND GUIDED FNA THYROID BIOPSY: CLINICAL HISTORY: Left thyroid nodule FINDINGS: The procedure was explained to the patient. The risks, complications, benefits and alternatives were discussed and any questions were answered. Informed consent was obtained. Patient was placed supin e on the ultrasound table and prepped and draped in the usual sterile fashion. Utilizing a 25 gauge needle, five passes were made into the requested left thyroid nodule. Patient was stable throughout the procedure. Pathology is pending. All elements of maximal barrier technique were utilized. IMPRESSION: 1. Successful ultrasound guided FNA thyroid biopsy. [facility], , 06/06/2024 10:12 AM
[2024-06-06 10:16] VITALS: BP 125/80; PULSE 70
== END 2024-06-06 10:15 | disposition home or self-care (01) ==
LOC: RADPROMAIN 08:55
PROVIDERS: ATTEND Internal Medicine
DX: E04.1 Nontoxic single thyroid nodule (principal)
CPT/HCPCS: 10005; 88173; 88305

== ENCOUNTER 2024-12-03 22:15 | Emergency (ER) | payer OTHER ==
[2024-12-03 22:24] VITALS: TEMP 98.3
[2024-12-03] MEDS: ONDANSETRON 4 MG/2 ML VIAL IVP STA (23:39)
[2024-12-03] MEDS: SODIUM CHLORIDE 0.9% 1,000 ML IV ONE (23:39)
[2024-12-04] MEDS: MORPHINE SULFATE 4 MG/ML SYRINGE IVP STA ×3 (00:01→04:03)
[2024-12-04 00:08] VITALS: RESP 16
[2024-12-04 00:31] LABS: Basophils # (A) 0.04 10*3/uL (0.00-0.10); Basophils % (A) 0.5 %; Eosinophils # (A) 0.12 10*3/uL (0.04-0.35); Eosinophils % (A) 1.6 %; HCT 44.1 % (37.2-46.3); HGB 14.6 g/dL (12.0-15.0); Lymphocytes # (A) 1.74 10*3/uL (0.90-5.00); Lymphocytes % (A) 23.4 %; MCH 30.2 pg (27.0-32.0); MCHC 33.1 g/dL (32.0-37.0); MCV 91.1 fL (80.0-97.0); Mean Platelet Volume 9.6 fL (9.5-12.2); Monocytes # (A) 0.37 10*3/uL (0.20-1.00); Neutrophils # (A) 5.15 10*3/uL (1.80-7.70); Neutrophils % (A) 69.2 %; Platelet Count 320 10*3/uL (140-440); RBC 4.84 10*6/uL (4.10-5.20); RDW 12.3 % (11.5-14.5); WBC 7.44 10*3/uL (4.50-10.00)
[2024-12-04 00:34] LABS: ALT 16 U/L (4-34); AST 31 U/L (14-36); African American GFR (CKD) >90 (>60 ml/min/1.73 sqM); Albumin 4.6 g/dL (3.5-5.0); Alkaline Phosphatase 51 U/L (38-126); Anion Gap 9 mmol/L; Blood Urea Nitrogen 6 mg/dL (7-17); Calcium 9.8 mg/dL (8.4-10.2); Carbon Dioxide 24 mmol/L (22-30); Chloride 103 mmol/L (98-107); Glucose 217 mg/dL (74-99); Lipase 60 U/L (23-300); Non-African American GFR(CKD) 87 (>60 ml/min/1.73 sqM); Sodium 136 mmol/L (137-145); Total Bilirubin 1.4 mg/dL (0.2-1.3); Total Protein 7.5 g/dL (6.3-8.2)
[2024-12-04 00:38] LABS: Potassium 4.8 mmol/L (3.5-5.1)
[2024-12-04 00:48] LABS: Appearance,Urine Clear (Clear); Bilirubin,Urine Negative (Negative); Blood,Urine Trace (Negative); Color,Urine Colorless; Glucose,Urine (UA) Negative (Negative); Ketones,Urine Negative (Negative); Leukocyte Esterase,Urine Negative (Negative); Nitrite,Urine Negative (Negative); Protein,Urine Negative (Negative); RBC,Urine 1 /hpf (0-5); Specific Gravity,Urine 1.034 (1.001-1.035); Squamous Epithelial Cell,Urine <1 /hpf (0-4); Urobilinogen,Urine <2.0 mg/dL (<2.0); WBC,Urine 1 /hpf (0-5)
--- NOTE | 2024-12-04 02:34 | CT ---
EXAM: CT Abdomen and Pelvis With Intravenous Contrast CLINICAL HISTORY: ITS.REASON CT Reason: abd pain, hx bariatric sx, hx perf ulcer sx, sbo TECHNIQUE: Axial computed tomography images of the abdomen and pelvis with intravenous contrast. CTDI is 13.9 mGy and DLP is 623.3 mGy-cm. This CT exam was performed using one or more of the following dose reduction techniques: automated exposure control, adjustment of the mA and/or kV according to patient size, and/or use of iterative reconstruction technique. COMPARISON: Abdominal MRI May 28, 2024. FINDINGS: Lung bases: Unremarkable. No mass. No consolidation. Mediastinum: Small hiatal hernia. ABDOMEN: Liver: Hepatic steatosis. Gallbladder and bile ducts: Cholecystectomy. No ductal dilation. Pancreas: Unremarkable. No mass. No ductal dilation. Spleen: Unremarkable. No splenomegaly. Adrenals: Unremarkable. No mass. Kidneys and ureters: Unremarkable. No solid mass. No hydronephrosis. Stomach and bowel: Albert-en-Y gastric bypass. No obstruction of the jejunojejunostomy. No mucosal thickening. PELVIS: Appendix: No findings to suggest acute appendicitis. Bladder: Unremarkable. No mass. Reproductive: Unremarkable as visualized. ABDOMEN and PELVIS: Intraperitoneal space: Unremarkable. No free air. No significant fluid collection. Bones/joints: No acute fracture. No dislocation. Soft tissues: Unremarkable. Vasculature: Unremarkable. No abdominal aortic aneurysm. Lymph nodes: Unremarkable. No enlarged lymph nodes. IMPRESSION: 1. Small hiatal hernia. 2. Hepatic steatosis. 3. Cholecystectomy. 4. Albert-en-Y gastric bypass. No obstruction of the jejunojejunostomy.
--- NOTE | 2024-12-04 04:01 | ED ---
General Adult HPI - General Chief complaint: Chest Pain Stated complaint: chest pain SOB Time Seen by Provider: 12/03/24 22:30 Source: patient Mode of arrival: ambulatory Limitations: no limitations - History of Present Illness Initial comments: 59-year-old female with history of COPD, fibromyalgia, multiple bariatric surgeries who presents to the emergency department reporting epigastric pain. Patient states that she has had pain similar to when she had a ruptured gastric ulcer and required immediate surgery. Patient previously had bariatric surgery with revision. Her surgeon is Dr. Stewart. States that her last surgery was in June where she had a hiatal hernia repair. The patient began having epigastric pain 2 days ago. Describes it as a pressure sensation which radiates through to her back. She has associated nausea without vomiting. She denies any chest pain or shortness of breath. No history of cardiac disease. She denies any changes in her urination to include dysuria, hematuria or difficulty voiding. No changes in her bowel movements to include diarrhea, constipation, black or bloody stools. Denies taking anything for the pain before coming in. No other alleviating, precipitating modifying factors - Related Data Home Medications Medication Instructions Recorded Confirmed ALPRAZolam [ALPRAZolam XR] 0.5 mg PO BID PRN 04/13/22 06/06/24 Levothyroxine Sodium [Synthroid] 37.5 mcg PO DAILY 04/13/22 06/06/24 Fluticasone/Umeclidin/Vilanter 1 puff INHALATION RT-DAILY 05/02/22 06/06/24 [Trelegy Ellipta 100-62.5-25] Albuterol Sulfate [Proair Hfa] 2 puff INHALATION RT-Q6H PRN 11/27/23 06/06/24 Butalb/Acetaminophen/Caffeine 1 cap PO BID PRN 11/27/23 06/06/24 [Fioricet 50-300-40 mg Capsule] modafiniL [Provigil] 200 mg PO BID PRN 11/27/23 06/06/24 Olmesartan [Benicar] 20 mg PO HS 01/09/24 06/06/24 Multivitamins, Thera [Multivitamin 1 tab PO DAILY 04/22/24 06/06/24 (formulary)] Potassium Chloride 10 meq PO BID 05/27/24 06/06/24 Previous Rx's Medication Instructions Recorded SUMAtriptan succinate [Imitrex] 100 mg PO DAILY PRN #30 tab 12/20/21 Omeprazole [PriLOSEC] 40 mg PO DAILY #30 cap 02/25/24 Sucralfate [Carafate] 1 gm PO TID #120 tablet 04/28/24 Allergies Allergy/AdvReac Type Severity Reaction Status Date / Time latex Allergy states Verified 12/03/24 22:24 "feels like chest tightens" ibuprofen [From Motrin] AdvReac due to Verified 12/03/24 22:24 ulcers NSAIDS (Non-Steroidal AdvReac DUE TO Verified 12/03/24 22:24 Anti-Inflamma STOMACH ULCERS scopolamine AdvReac contraindictated Verified 12/03/24 22:24 with glaucoma Review of Systems ROS Statement: Those systems with pertinent positive or pertinent negative responses have been documented in the HPI. ROS Other: All systems not noted in ROS Statement are negative. Past Medical History Past Medical History: Chest Pain / Angina, COPD, Eye Disorder, Fibromyalgia, GERD/Reflux, Hypertension, Osteoarthritis (OA), Thyroid Disorder Additional Past Medical History / Comment(s): 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 Migraines, hiatal hernia, thyroid nodule. Gastrojejunal perforation, pneumoperitoneum, generalized arthritis. upper abdominal pain due to hernia, glaucoma. hx. of bleeding ulcer, perforated ulcer in past, seen in [facility] recently palpitations, dizzy, "didn't feel right", K+ ended up being low, hypoglycemic History of Any Multi-Drug Resistant Organisms: None Reported Past Surgical History: Bariatric Surgery, Breast Surgery, Cholecystectomy, Uterine Ablation Additional Past Surgical History / Comment(s): EXPLORATORY OF AUGUST 27, HERNIA BOWEL HORVATH SPACE DEFECT @[facility] 08-27-19. 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 Surgery for pneumoperitoneum 04/2018 @ [facility]. Adhesiolysis 09/2018. Colonoscopy with upper endoscopy 2017. Gastric sleeve (03/2016). ulcer repair, Revision of Albert en y and lysis of adhesions 02/22/24 Past Anesthesia/Blood Transfusion Reactions: Motion Sickness, Postoperative Nausea & Vomiting (PONV) Additional Past Anesthesia/Blood Transfusion Reaction / Comment(s): Has never received blood Past Psychological History: Anxiety Smoking Status: Former smoker Past Alcohol Use History: Rare Past Drug Use History: None Reported - Past Family History Mother Additional Family Medical History / Comment(s): Emphysema. Maternal great aunt had breast cancer. Father Additional Family Medical History / Comment(s): spray pilot w/ plane crash- age 22. Paternal grandmother had breast cancer. General Exam Limitations: no limitations General appearance: alert, in no apparent distress Head exam: Present: atraumatic, normocephalic, normal inspection Eye exam: Present: normal appearance, PERRL, EOMI. Absent: scleral icterus, conjunctival injection, periorbital swelling ENT exam: Present: normal exam, mucous membranes moist Neck exam: Present: normal inspection. Absent: tenderness, meningismus, lymphadenopathy Respiratory exam: Present: normal lung sounds bilaterally. Absent: respiratory distress, wheezes, rales, rhonchi, stridor Cardiovascular Exam: Present: regular rate, normal rhythm, normal heart sounds. Absent: systolic murmur, diastolic murmur, rubs, gallop, clicks GI/Abdominal exam: Present: soft, tenderness (Epigastric), normal bowel sounds. Absent: distended, guarding, rebound, rigid Extremities exam: Present: normal inspection, full ROM, normal capillary refill. Absent: tenderness, pedal edema, joint swelling, calf tenderness Back exam: Present: normal inspection Neurological exam: Present: alert, oriented X3, CN II-XII intact Psychiatric exam: Present: normal affect, normal mood Skin exam: Present: warm, dry, intact, normal color. Absent: rash Course Vital Signs 12/03/24 12/04/24 12/04/24 22:20 00:00 01:07 Temperature 98.3 F Pulse Rate 71 69 59 L Respiratory 18 16 16 Rate Blood Pressure 152/90 143/108 147/83 O2 Sat by Pulse 99 98 98 Oximetry 12/04/24 12/04/24 02:49 04:31 Temperature Pulse Rate 60 68 Respiratory 16 16 Rate Blood Pressure 149/85 144/82 O2 Sat by Pulse 97 97 Oximetry Medical Decision Making - Medical Decision Making Was pt. sent in by a medical professional or institution (, PA, CEO AND PRESIDENT, urgent care, hospital, or residential...) When possible be specific @ -No Did you speak to anyone other than the patient for history (EMS, parent, family, police, friend...)? What history was obtained from this source @ -No Did you review nursing and triage notes (agree or disagree)? Why? @ -I reviewed and agree with nursing and triage notes Were old charts reviewed (outside hosp., previous admission, EMS record, old EKG, old radiological studies, urgent care reports/EKG's, residential records)? Report findings @ -I reviewed EGD report from April [address] Stewart Differential Diagnosis (chest pain, altered mental status, abdominal pain women, abdominal pain men, vaginal bleeding, weakness, fever, dyspnea, syncope, headache, dizziness, GI bleed, back pain, seizure, CVA, palpatations, mental health, musculoskeletal)? @ -Differential Abdominal Pain Women: Appendicitis, Cholecystitis, diverticulosis, ischemic bowel, pancreatitis, hepatitis, UTI, gastroenteritis, AAA, incarcerated hernia, bowel obstruction, constipation, inflammatory bowel, hepatitis, peptic ulcer disease, splenic infarction, perforated viscus, vulvitis, ovarian torsion, PID, kidney stone, placenta abruption, this is not meant to be an all-inclusive list EKG interpreted by me (3pts min.). @ -Yes and demonstrates sinus rhythm with a rate of 81. MO interval 152. QRS 83. QTc of 401. No acute ST segment elevations or depressions X-rays interpreted by me (1pt min.). @ -None done CT interpreted by me (1pt min.). @ -Yes which demonstrates no acute process. Patient does have a hiatal hernia U/S interpreted by me (1pt. min.). @ -None done What testing was considered but not performed or refused? (CT, X-rays, U/S, labs)? Why? @ -None What meds were considered but not given or refused? Why? @ -None Did you discuss the management of the patient with other professionals (professionals i.e. ., PA, CEO AND PRESIDENT, lab, RT, psych nurse, social worker school, bus assistant, teacher, conservation enforcement officer, case hardener)? Give summary @ -No Was smoking cessation discussed for >3mins.? @ -No Was critical care preformed (if so, how long)? @ -No Were there social determinants of health that impacted care today? How? (Home lessness, low income, unemployed, alcoholism, drug addiction, transportation, low edu. Level, literacy, decrease access to med. care, long term, rehab)? @ -No Was there de-escalation of care discussed even if they declined (Discuss DNR or withdrawal of care, Hospice)? DNR status @ -No What co-morbidities impacted this encounter? (DM, HTN, Smoking, COPD, CAD, Cancer, CVA, ARF, Chemo, Hep., AIDS, mental health diagnosis, sleep apnea, morbid obesity)? @ -History of Albert-en-Y, history of perforated gastric ulcer Was patient admitted / discharged? Hospital course, mention meds given and route, prescriptions, significant lab abnormalities, going to OR and other pertinent info. @ -Upon arrival patient seen and evaluated in bed 24. Thorough history and physical exam was performed. Twelve-lead EKG is obtained. Laboratory studies are conducted. CT of the abdomen and pelvis was performed. Results are discussed with the patient. Patient feels improved and is satisfied with her report. Feels comfortable going home and calling Dr. Stewart to notify her of her symptoms. She may need further testing and procedures to include another EGD for which the patient understood. Return to the emergency department for any new or worsening symptoms. Patient agreeable to the plan was discharged in stable condition Undiagnosed new problem with uncertain prognosis? @ -No Drug Therapy requiring intensive monitoring for toxicity (Heparin, Nitro, Insulin, Cardizem)? @ -No Were any procedures done? @ -No Diagnosis/symptom? @ -Acute epigastric abdominal pain, history of perforated ulcer, history of Albert-en-Y Acute, or Chronic, or Acute on Chronic? @ -Acute on chronic Uncomplicated (without systemic symptoms) or Complicated (systemic symptoms)? @ -Complicated Side effects of treatment? @ -No Exacerbation, Progression, or Severe Exacerbation? @ -No Poses a threat to life or bodily function? How? (Chest pain, USA, VT, pneumonia, PE, COPD, DKA, ARF, appy, cholecystitis, CVA, Diverticulitis, Homicidal, Suicidal, threat to staff... and all critical care pts) @ -No - Lab Data Result diagrams: 12/03/24 22:34 12/03/24 22:34 Lab Results 12/03/24 12/03/24 12/03/24 Range/Units 22:34 22:34 22:34 WBC 7.44 (4.50-10.00) 10*3/uL RBC 4.84 (4.10-5.20) 10*6/uL Hgb 14.6 (12.0-15.0) g/dL Hct 44.1 (37.2-46.3) % MCV 91.1 (80.0-97.0) fL MCH 30.2 (27.0-32.0) pg MCHC 33.1 (32.0-37.0) g/dL Plt Count 320 (140-440) 10*3/uL MPV 9.6 (9.5-12.2) fL Immature Gran % (Auto) 0.3 % Neutrophils % 69.2 % Lymphocytes % 23.4 % Monocytes % 5.0 % Eosinophils % 1.6 % Basophils % 0.5 % Immature Gran # 0.02 (0.00-0.04) 10*3/uL Neutrophils # 5.15 (1.80-7.70) 10*3/uL Lymphocytes # 1.74 (0.90-5.00) 10*3/uL Monocytes # 0.37 (0.20-1.00) 10*3/uL Eosinophils # 0.12 (0.04-0.35) 10*3/uL Basophils # 0.04 (0.00-0.10) 10*3/uL Sodium 136 L (137-145) mmol/L Potassium 4.8 (3.5-5.1) mmol/L Chloride 103 (98-107) mmol/L Carbon Dioxide 24 (22-30) mmol/L Anion Gap 9 mmol/L BUN 6 L (7-17) mg/dL Creatinine 0.75 (0.52-1.04) mg/dL Est GFR (CKD-EPI)AfAm >90 (>60 ml/min/1.73 sqM) Est GFR (CKD-EPI)NonAf 87 (>60 ml/min/1.73 sqM) Glucose 217 H (74-99) mg/dL Lactic Ac Sepsis Rflx Plasma Lactic Acid Bryce 2.8 H* (0.7-2.0) mmol/L Calcium 9.8 (8.4-10.2) mg/dL Total Bilirubin 1.4 H (0.2-1.3) mg/dL AST 31 (14-36) U/L ALT 16 (4-34) U/L Alkaline Phosphatase 51 (38-126) U/L Troponin I (0.000-0.034) ng/mL Total Protein 7.5 (6.3-8.2) g/dL Albumin 4.6 (3.5-5.0) g/dL Lipase 60 (23-300) U/L Urine Color Urine Appearance (Clear) Urine pH (5.0-8.0) Ur Specific [place] (1.001-1.035) Urine Protein (Negative) Urine Glucose (UA) (Negative) Urine Ketones (Negative) Urine Blood (Negative) Urine Nitrite (Negative) Urine Bilirubin (Negative) Urine Urobilinogen (<2.0) mg/dL Ur Leukocyte Esterase (Negative) Urine RBC (0-5) /hpf Urine WBC (0-5) /hpf Ur Squamous Epith Cells (0-4) /hpf 12/03/24 12/04/24 12/04/24 Range/Units 22:34 00:07 00:40 WBC (4.50-10.00) 10*3/uL RBC (4.10-5.20) 10*6/uL Hgb (12.0-15.0) g/dL Hct (37.2-46.3) % MCV (80.0-97.0) fL MCH (27.0-32.0) pg MCHC (32.0-37.0) g/dL Plt Count (140-440) 10*3/uL MPV (9.5-12.2) fL Immature Gran % (Auto) % Neutrophils % % Lymphocytes % % Monocytes % % Eosinophils % % Basophils % % Immature Gran # (0.00-0.04) 10*3/uL Neutrophils # (1.80-7.70) 10*3/uL Lymphocytes # (0.90-5.00) 10*3/uL Monocytes # (0.20-1.00) 10*3/uL Eosinophils # (0.04-0.35) 10*3/uL Basophils # (0.00-0.10) 10*3/uL Sodium (137-145) mmol/L Potassium (3.5-5.1) mmol/L Chloride (98-107) mmol/L Carbon Dioxide (22-30) mmol/L Anion Gap mmol/L BUN (7-17) mg/dL Creatinine (0.52-1.04) mg/dL Est GFR (CKD-EPI)AfAm (>60 ml/min/1.73 sqM) Est GFR (CKD-EPI)NonAf (>60 ml/min/1.73 sqM) Glucose (74-99) mg/dL Lactic Ac Sepsis Rflx Y Plasma Lactic Acid Bryce (0.7-2.0) mmol/L Calcium (8.4-10.2) mg/dL Total Bilirubin (0.2-1.3) mg/dL AST (14-36) U/L ALT (4-34) U/L Alkaline Phosphatase (38-126) U/L Troponin I <0.012 (0.000-0.034) ng/mL Total Protein (6.3-8.2) g/dL Albumin (3.5-5.0) g/dL Lipase (23-300) U/L Urine Color Colorless Urine Appearance Clear (Clear) Urine pH 6.0 (5.0-8.0) Ur Specific [place] 1.034 (1.001-1.035) Urine Protein Negative (Negative) Urine Glucose (UA) Negative (Negative) Urine Ketones Negative (Negative) Urine Blood Trace H (Negative) Urine Nitrite Negative (Negative) Urine Bilirubin Negative (Negative) Urine Urobilinogen <2.0 (<2.0) mg/dL Ur Leukocyte Esterase Negative (Negative) Urine RBC 1 (0-5) /hpf Urine WBC 1 (0-5) /hpf Ur Squamous Epith Cells <1 (0-4) /hpf // Range/Units 02:46 WBC (4.50-10.00) 10*3/uL RBC (4.10-5.20) 10*6/uL Hgb (12.0-15.0) g/dL Hct (37.2-46.3) % MCV (80.0-97.0) fL MCH (27.0-32.0) pg MCHC (32.0-37.0) g/dL Plt Count (140-440) 10*3/uL MPV (9.5-12.2) fL Immature Gran % (Auto) % Neutrophils % % Lymphocytes % % Monocytes % % Eosinophils % % Basophils % % Immature Gran # (0.00-0.04) 10*3/uL Neutrophils # (1.80-7.70) 10*3/uL Lymphocytes # (0.90-5.00) 10*3/uL Monocytes # (0.20-1.00) 10*3/uL Eosinophils # (0.04-0.35) 10*3/uL Basophils # (0.00-0.10) 10*3/uL Sodium (137-145) mmol/L Potassium (3.5-5.1) mmol/L Chloride (98-107) mmol/L Carbon Dioxide (22-30) mmol/L Anion Gap mmol/L BUN (7-17) mg/dL Creatinine (0.52-1.04) mg/dL Est GFR (CKD-EPI)AfAm (>60 ml/min/1.73 sqM) Est GFR (CKD-EPI)NonAf (>60 ml/min/1.73 sqM) Glucose (74-99) mg/dL Lactic Ac Sepsis Rflx Plasma Lactic Acid Bryce 0.9 (0.7-2.0) mmol/L Calcium (8.4-10.2) mg/dL Total Bilirubin (0.2-1.3) mg/dL AST (14-36) U/L ALT (4-34) U/L Alkaline Phosphatase (38-126) U/L Troponin I (0.000-0.034) ng/mL Total Protein (6.3-8.2) g/dL Albumin (3.5-5.0) g/dL Lipase (23-300) U/L Urine Color Urine Appearance (Clear) Urine pH (5.0-8.0) Ur Specific [place] (1.001-1.035) Urine Protein (Negative) Urine Glucose (UA) (Negative) Urine Ketones (Negative) Urine Blood (Negative) Urine Nitrite (Negative) Urine Bilirubin (Negative) Urine Urobilinogen (<2.0) mg/dL Ur Leukocyte Esterase (Negative) Urine RBC (0-5) /hpf Urine WBC (0-5) /hpf Ur Squamous Epith Cells (0-4) /hpf Disposition Clinical Impression: History of Albert-en-Y gastric bypass, Epigastric pain Disposition: HOME SELF-CARE Condition: Stable Instructions (If sedation given, give patient instructions): Abdominal Pain (ED) Additional Instructions: Please call Dr. Stewart's office in the morning to let them know you had to come to the emergency department for your symptoms. She may want to pursue further treatment options. Return to the emergency department for any new or worsening symptoms Is patient prescribed a controlled substance at d/c from ED?: No Referrals: Adam Castaneda DO [Primary Care Provider] - 1-2 days Nu Stewart MD [STAFF PHYSICIAN] - 1-2 days Time of Disposition: 04:01
[2024-12-04] MEDS: ONDANSETRON 4 MG/2 ML VIAL IVP STA (04:03)
[2024-12-04 04:32] VITALS: BP 144/82; PULSE 68
== END 2024-12-04 04:32 | disposition home or self-care (01) ==
LOC: EC 22:15
DX: R10.13 Epigastric pain (principal); Z98.84 Bariatric surgery status; Z87.11 Personal history of peptic ulcer disease; Z87.891 Personal history of nicotine dependence; Z88.6 Allergy status to analgesic agent; Z91.040 Latex allergy status; Z88.8 Allergy status to other drugs, medicaments and biological substances
CPT/HCPCS: 36415 ×2; 93005; 80053; 83605 ×2; 83690; 84484; 85025; 81001; 74177; 99285; 96374; 96375; 96361; 96376; J2270; J2405 ×2; Q9967

== ENCOUNTER → 2024-12-24 | Day surgery (SDC) | payer OTHER ==
[2024-12-23 12:08] VITALS: BMI 23.3
[~2024-12-24] MED LIST changes: -HYDROmorphone 0.5 MG/0.5 ML SYRINGE IVP PRN; -LIDOCAINE 1% (10MG/ML) FOR IV START INTRADERMA PRN; -MIDAZOLAM 2 MG/2 ML VIAL IV PRN; +PROPOFOL 10 MG/ML 20 ML VIAL IV ONE
[2024-12-24] MEDS: IV FLUID CONTINUATION 1,000 ML IV ONE ×2 (09:34→09:36)
[2024-12-24 09:38] VITALS: TEMP 97.2
[2024-12-24] MEDS: LACTATED RINGERS 1,000 ML IV SCH (09:44)
--- NOTE | 2024-12-24 11:15 | P.GSHP ---
History of Present Illness H&P Date: 12/24/24 CHIEF COMPLAINT: Dysphagia HISTORY OF PRESENT ILLNESS: The patient is a 59-year-old female who presents reports dysphagia. Upper endoscopy was offered for further evaluation and management. PAST MEDICAL HISTORY: Please see list. PAST SURGICAL HISTORY: Please see list. MEDICATIONS: Please see list. ALLERGIES: Please see list. SOCIAL HISTORY: No illicit drug use FAMILY HISTORY: No reports of Crohn disease or ulcerative colitis. REVIEW OF ORGAN SYSTEMS: CONSTITUTIONAL: No reports of fevers or chills. GI: Denies any blood in stools or constipation. PHYSICAL EXAM: VITAL SIGNS: Stable GENERAL: Well-developed and pleasant in no acute distress. HEENT: No scleral icterus. Extraocular movements grossly intact. Moist buccal mucosa. NECK: Supple without lymphadenopathy. CHEST: Unlabored respirations. Equal bilateral excursions. CARDIOVASCULAR: Regular rate and rhythm. Distal 2+ pulses. ABDOMEN: Soft, nondistended. MUSCULOSKELETAL: No clubbing, cyanosis, or edema. ASSESSMENT: 1. Dysphagia PLAN: 1. Recommend proceeding with an upper endoscopy with rigid dilators. Past Medical History Past Medical History: Chest Pain / Angina, COPD, Eye Disorder, Fibromyalgia, GERD/Reflux, Hypertension, Osteoarthritis (OA), Thyroid Disorder Additional Past Medical History / Comment(s): having difficulty swallowing, 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 Migraines, hiatal hernia, thyroid nodule. Gastrojejunal perforation, pneumoperitoneum, generalized arthritis. upper abdominal pain due to hernia, glaucoma. hx. of bleeding ulcer, perforated ulcer in past, seen in [facility] recently palpitations, dizzy, "didn't feel right", K+ ended up being low, hypoglycemic, RT hip cortisone injection 11/2024 History of Any Multi-Drug Resistant Organisms: None Reported Past Surgical History: Bariatric Surgery, Breast Surgery, Cholecystectomy, Uterine Ablation Additional Past Surgical History / Comment(s): EXPLORATORY OF AUGUST 27, HERNIA BOWEL HORVATH SPACE DEFECT @[facility] 08-27-19. 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 Surgery for pneumoperitoneum 04/2018 @ [facility]. Adhesiolysis 09/2018. Colonoscopy with upper endoscopy 2017. Gastric sleeve (03/2016). ulcer repair, Revision of Albert en y and lysis of adhesions 02/22/24 Past Anesthesia/Blood Transfusion Reactions: Motion Sickness, Postoperative Nausea & Vomiting (PONV) Additional Past Anesthesia/Blood Transfusion Reaction / Comment(s): Has never received blood Smoking Status: Former smoker - Past Family History Mother Additional Family Medical History / Comment(s): Emphysema. Maternal great aunt had breast cancer. Father Additional Family Medical History / Comment(s): ferryboat pilot w/ plane crash- age 22. Paternal grandmother had breast cancer. Medications and Allergies Home Medications Medication Instructions Recorded Confirmed Type SUMAtriptan succinate [Imitrex] 100 mg PO DAILY PRN #30 tab 12/20/21 12/24/24 Rx ALPRAZolam [ALPRAZolam XR] 0.5 mg PO BID PRN 04/13/22 12/24/24 History Levothyroxine Sodium [Synthroid] 37.5 mcg PO QAM 04/13/22 12/24/24 History Fluticasone/Umeclidin/Vilanter 1 puff INHALATION RT-DAILY 05/02/22 12/24/24 History [Trelegy Ellipta 100-62.5-25] Albuterol Sulfate [Proair Hfa] 2 puff INHALATION RT-Q6H PRN 11/27/23 12/24/24 History modafiniL [Provigil] 200 mg PO BID PRN 11/27/23 12/24/24 History Olmesartan [Benicar] 20 mg PO HS 01/09/24 12/24/24 History Multivitamins, Thera [Multivitamin 1 tab PO DAILY 04/22/24 12/24/24 History (formulary)] Potassium Chloride 10 meq PO DAILY 05/27/24 12/24/24 History Gabapentin 300 mg PO HS PRN 12/17/24 12/24/24 History Omeprazole [PriLOSEC] 40 mg PO BID #60 cap 12/24/24 Rx Sucralfate [Carafate] 1 gm PO BID #120 tablet 12/24/24 Rx Allergies Allergy/AdvReac Type Severity Reaction Status Date / Time latex Allergy states Verified 12/24/24 09:45 "feels like chest tightens" ibuprofen [From Motrin] AdvReac due to Verified 12/24/24 09:45 ulcers NSAIDS (Non-Steroidal AdvReac DUE TO Verified 12/24/24 09:45 Anti-Inflamma STOMACH ULCERS scopolamine AdvReac contraindictated Verified 12/24/24 09:45 with glaucoma Surgical - Exam Vital Signs Temp Pulse Resp BP Pulse Ox 97.2 F L 72 18 163/94 99 12/24/24 09:31 12/24/24 09:31 12/24/24 09:31 12/24/24 09:31 12/24/24 09:31
--- NOTE | 2024-12-24 11:25 | P.PCN ---
Date of Procedure: 12/24/24 Description of Procedure: PREOPERATIVE DIAGNOSIS: Dysphagia. Atypical chest pain POSTOPERATIVE DIAGNOSIS: Presbyesophagus Acute gastrojejunal ulcer with bleeding with obstruction OPERATION: Esophagojejunoscopy with balloon dilation 12 to 15 mm, for gastric stenosis Esophagojejunoscopy with cold forcep biopsies esophagus, gastric pouch, jejunum SURGEON: Nu Stewart MD ANESTHESIA: MAC. INDICATIONS: The patient is a 59-year-old female who presents with a history of dysphagia. She has history of previous esophageal stricture and gastric bypass. Benefits and risks of the procedure were described. Informed consent was obtained. DESCRIPTION: The patient was brought into the endoscopy suite and laid in the left lateral decubitus position. After a timeout was confirmed, the procedure was initiated. An Olympus gastroscope was passed to the posterior oropharynx was advanced to 70 cm from the incisors. Acute gastrojejunal ulcer with bleeding and obstruction was identified with opening of 10 mm. [employer] 20 mm balloon was used to dilate the gastric pouch and anastomosis from 12 mm to 15 mm. Cold forcep biopsies were obtained along the jejunum, gastric pouch and esophagus. Please see below for additional findings. No full-thickness injury was encountered. The GI tract was desufflated. The patient tolerated the procedure well. FINDINGS: Presbyesophagus with tertiary contractions Gastrojejunal anastomosis with acute ulceration including bleeding and partial obstruction Squamocolumnar junction and pouch 32 cm to 36 cm Gastrojejunal dilated 12 to 15 mm balloon Cold forcep biopsies obtained of esophagus, gastric pouch and jejunum RECOMMENDATIONS: Omeprazole 40 mg twice daily due to severe ulcers despite single dose Carafate 1 g twice daily Will need resection of stomach/gastric pouch Plan - Discharge Summary Discharge Rx Participant: No New Discharge Prescriptions: New Omeprazole [PriLOSEC] 40 mg PO BID #60 cap Sucralfate [Carafate] 1 gm PO BID #120 tablet Continue SUMAtriptan succinate [Imitrex] 100 mg PO DAILY PRN #30 tab PRN Reason: MIGRAINES Albuterol Sulfate [Proair Hfa] 2 puff INHALATION RT-Q6H PRN PRN Reason: Shortness Of Breath modafiniL [Provigil] 200 mg PO BID PRN PRN Reason: to stay awake Olmesartan [Benicar] 20 mg PO HS Gabapentin 300 mg PO HS PRN PRN Reason: nerve pain Levothyroxine Sodium [Synthroid] 37.5 mcg PO QAM ALPRAZolam [ALPRAZolam XR] 0.5 mg PO BID PRN PRN Reason: Anxiety Fluticasone/Umeclidin/Vilanter [Trelegy Ellipta 100-62.5-25] 1 puff INHALATION RT-DAILY Multivitamins, Thera [Multivitamin (formulary)] 1 tab PO DAILY Potassium Chloride 10 meq PO DAILY Discontinued Omeprazole [PriLOSEC] 40 mg PO DAILY #30 cap Discharge Medication List SUMAtriptan succinate [Imitrex] 100 mg PO DAILY PRN #30 tab 12/20/21 [Rx] ALPRAZolam [ALPRAZolam XR] 0.5 mg PO BID PRN 04/13/22 [History] Levothyroxine Sodium [Synthroid] 37.5 mcg PO QAM 04/13/22 [History] Fluticasone/Umeclidin/Vilanter [Trelegy Ellipta 100-62.5-25] 1 puff INHALATION RT-DAILY 05/02/22 [History] Albuterol Sulfate [Proair Hfa] 2 puff INHALATION RT-Q6H PRN 11/27/23 [History] modafiniL [Provigil] 200 mg PO BID PRN 11/27/23 [History] Olmesartan [Benicar] 20 mg PO HS 01/09/24 [History] Multivitamins, Thera [Multivitamin (formulary)] 1 tab PO DAILY 04/22/24 [History] Potassium Chloride 10 meq PO DAILY 05/27/24 [History] Gabapentin 300 mg PO HS PRN 12/17/24 [History] Omeprazole [PriLOSEC] 40 mg PO BID #60 cap 12/24/24 [Rx] Sucralfate [Carafate] 1 gm PO BID #120 tablet 12/24/24 [Rx] [facility]ment([facility] [facility] [place] [place] [facility] - 01/07/25 3:00 pm Patient Instructions/Handouts: Diet for Stomach Ulcers and Gastritis (ED), Esophageal Dilation (GEN) Activity/Diet/Wound Care/Special Instructions: Take omeprazole including Carafate twice daily for the next 2 to 3 weeks Discharge Disposition: HOME SELF-CARE
[2024-12-24 11:42] VITALS: BP 142/74; PULSE 71; RESP 18
== END | disposition home or self-care (01) ==
LOC: ORWHC2ENDO 08:54
PROVIDERS: ATTEND Surgery Plastic and Reconstructive Surgery
DX: K22.2 Esophageal obstruction (principal); K22.89 Other specified disease of esophagus; K28.0 Acute gastrojejunal ulcer with hemorrhage; I10 Essential (primary) hypertension; J44.9 Chronic obstructive pulmonary disease, unspecified; M79.7 Fibromyalgia; Z79.890 Hormone replacement therapy; Z87.891 Personal history of nicotine dependence; Z98.84 Bariatric surgery status
CPT/HCPCS: 43239; 43249; J2704; C1726; 88305

== ENCOUNTER 2025-02-07 01:28 | Emergency (ER) | payer OTHER ==
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
[2025-02-07 02:37] LABS: Basophils # (A) 0.03 10*3/uL (0.00-0.10); Basophils % (A) 0.3 %; Eosinophils # (A) 0.06 10*3/uL (0.04-0.35); Eosinophils % (A) 0.6 %; HCT 43.5 % (37.2-46.3); HGB 14.6 g/dL (12.0-15.0); Lymphocytes # (A) 1.82 10*3/uL (0.90-5.00); Lymphocytes % (A) 18.6 %; MCH 29.7 pg (27.0-32.0); MCHC 33.6 g/dL (32.0-37.0); MCV 88.4 fL (80.0-97.0); Mean Platelet Volume 9.5 fL (9.5-12.2); Monocytes # (A) 0.69 10*3/uL (0.20-1.00); Neutrophils # (A) 7.17 10*3/uL (1.80-7.70); Neutrophils % (A) 73.1 %; Platelet Count 357 10*3/uL (140-440); RBC 4.92 10*6/uL (4.10-5.20); RDW 12.4 % (11.5-14.5); WBC 9.81 10*3/uL (4.50-10.00)
[2025-02-07 02:51] LABS: ALT 12 U/L (4-34); AST 21 U/L (14-36); African American GFR (CKD) >90 (>60 ml/min/1.73 sqM); Albumin 4.7 g/dL (3.5-5.0); Alkaline Phosphatase 105 U/L (38-126); Amylase 48 U/L (30-110); Anion Gap 16 mmol/L; Blood Urea Nitrogen 10 mg/dL (7-17); Calcium 10.4 mg/dL (8.4-10.2); Carbon Dioxide 23 mmol/L (22-30); Chloride 98 mmol/L (98-107); Glucose 110 mg/dL (74-99); Lipase 57 U/L (23-300); Non-African American GFR(CKD) >90 (>60 ml/min/1.73 sqM); Potassium 3.9 mmol/L (3.5-5.1); Sodium 137 mmol/L (137-145); Total Bilirubin 1.1 mg/dL (0.2-1.3); Total Protein 7.5 g/dL (6.3-8.2)
--- NOTE | 2025-02-07 04:12 | CT ---
EXAM: CT Abdomen and Pelvis With Intravenous Contrast CLINICAL HISTORY: ITS.REASON CT Reason: Epigastric pain, N/V TECHNIQUE: Axial computed tomography images of the abdomen and pelvis with intravenous contrast. CTDI is 12.6 mGy and DLP is 575 mGy-cm. This CT exam was performed using one or more of the following dose reduction techniques: automated exposure control, adjustment of the mA and/or kV according to patient size, and/or use of iterative reconstruction technique. COMPARISON: No relevant prior studies available. FINDINGS: Lung bases: Unremarkable. No mass. No consolidation. Mediastinum: Mild esophageal thickening which may be inflammatory in nature. Small esophageal hiatal hernia. ABDOMEN: Liver: Unremarkable. No mass. Gallbladder and bile ducts: Cholecystectomy changes. The common duct measures up to 0.8 cm which can be seen with reservoir effect. Pancreas: No evidence of pancreatitis. No ductal dilation. Spleen: Unremarkable. No splenomegaly. Adrenals: Unremarkable. No mass. Kidneys and ureters: Simple left renal cyst. No follow-up of this simple cyst is necessary. No hydronephrosis. Stomach and bowel: No evidence of bowel obstruction. Albert-en-Y gastric bypass changes. No evidence of bowel obstruction. No mucosal thickening. PELVIS: Appendix: No findings to suggest acute appendicitis. Bladder: Diffuse bladder wall thickening which can be seen with underdistention. Cystitis is also possible. Consider correlation with laboratory values. Reproductive: Unremarkable as visualized. ABDOMEN and PELVIS: Intraperitoneal space: Unremarkable. No free air. No significant fluid collection. Bones/joints: Degenerative changes in the spine. No acute fracture. No dislocation. Soft tissues: Umbilical hernia containing fat. Vasculature: Atherosclerotic disease. No abdominal aortic aneurysm. Lymph nodes: Unremarkable. No enlarged lymph nodes. IMPRESSION: 1. No evidence of pancreatitis. 2. No evidence of bowel obstruction. 3. Mild esophageal thickening which may be inflammatory in nature. 4. Small esophageal hiatal hernia. 5. Diffuse bladder wall thickening which can be seen with underdistention. Cystitis is also possible. Consider correlation with laboratory values. 6. No other acute findings. 7. Incidental findings as described.
[2025-02-07] MEDS: ONDANSETRON 4 MG/2 ML VIAL IVP STA ×2 (04:13→05:53)
[2025-02-07] MEDS: HYDROmorphone 1 MG/ML 1 ML SYRINGE IVP STA ×2 (04:19→05:52)
[2025-02-07] MEDS: PANTOPRAZOLE 40 MG/10 ML VIAL IVP STA (04:20)
[2025-02-07] MEDS: SODIUM CHLORIDE 0.9% 1,000 ML IV ONE (04:20)
[2025-02-07] MEDS: ACET/COD 300 MG/30 MG STARTER PACK 6 TAB BTL PO STA (05:52)
[2025-02-07 05:55] VITALS: BP 132/79; PULSE 64; RESP 16; TEMP 97.6
== END 2025-02-07 06:09 | disposition home or self-care (01) ==
LOC: EC 01:28
DX: R10.13 Epigastric pain (principal); R11.2 Nausea with vomiting, unspecified; K21.9 Gastro-esophageal reflux disease without esophagitis; Z87.891 Personal history of nicotine dependence; Z88.6 Allergy status to analgesic agent; Z91.040 Latex allergy status; Z88.8 Allergy status to other drugs, medicaments and biological substances
CPT/HCPCS: 36415; 93005; 80053; 82150; 83605; 83690; 84484; 85025; 74177; 99284; 96374; 96375; 96376; 96361; J2405; J1171; Q9967; J2470

== ENCOUNTER 2025-02-19 15:28 | Inpatient (IN) | payer OTHER ==
--- NOTE | 2025-02-19 16:15 | ED ---
Abdominal Pain HPI - General Chief Complaint: Abdominal Pain Stated Complaint: Abd Pain-Transfer Time Seen by Provider: 02/19/25 15:30 Source: patient, EMS, RN notes reviewed Mode of arrival: EMS Limitations: no limitations - History of Present Illness Initial Comments: 59-year-old female presents to the emergency department with abdominal pain. States that the pain started last night. Has associated nausea without vomiting. Had a bowel movement last night and is still passing gas. Patient scheduled to have surgery on February 23 to connect her small bowel to her stomach with Dr. Stewart at [facility]. Patient is status post gastric slee ve. [facility]. She was given morphine, Zofran and a liter bolus of normal saline. High-sensitivity troponin was 15. CT performed that demonstrates Albert-en-Y with ulcerating pouch 3 x 2.5 cm distal esophagus. Patient was then transferred here for surgical evaluation. - Related Data Home Medications Medication Instructions Recorded Confirmed ALPRAZolam [ALPRAZolam XR] 0.5 mg PO BID PRN 04/13/22 02/19/25 Levothyroxine Sodium [Synthroid] 37.5 mcg PO HS 04/13/22 02/19/25 Fluticasone/Umeclidin/Vilanter 1 puff INHALATION RT-DAILY 05/02/22 02/19/25 [Trelegy Ellipta 100-62.5-25] Albuterol Sulfate [Proair Hfa] 2 puff INHALATION RT-QID PRN 11/27/23 02/19/25 Olmesartan [Benicar] 20 mg PO DAILY 01/09/24 02/19/25 Gabapentin 300 mg PO HS 12/17/24 02/19/25 Calcium(Unknown Dose) 1 tab PO DAILY 01/05/25 02/19/25 SUMAtriptan succinate [Imitrex] 100 mg PO DAILY PRN 01/05/25 02/19/25 Sertraline [Zoloft] 50 mg PO DAILY 01/05/25 02/19/25 Hydrocodone/Apap 5/300mg 1 tab PO Q6H PRN 02/19/25 02/19/25 methocarbamoL [Robaxin-750] 750 mg PO Q4H PRN 02/19/25 02/19/25 Previous Rx's Medication Instructions Recorded Omeprazole [PriLOSEC] 40 mg PO BID #60 cap 12/24/24 Sucralfate [Carafate] 1 gm PO BID #120 tablet 12/24/24 Prochlorperazine [Compazine] 10 mg PO Q6H PRN #20 tab 01/07/25 Allergies Allergy/AdvReac Type Severity Reaction Status Date / Time latex Allergy states Verified 02/19/25 16:53 "feels like chest tightens" ibuprofen [From Motrin] AdvReac due to Verified 02/19/25 16:53 ulcers NSAIDS (Non-Steroidal AdvReac DUE TO Verified 02/19/25 16:53 Anti-Inflamma STOMACH ULCERS scopolamine AdvReac contraindictated Verified 02/19/25 16:53 with glaucoma Review of Systems ROS Statement: Those systems with pertinent positive or pertinent negative responses have been documented in the HPI. ROS Other: All systems not noted in ROS Statement are negative. Past Medical History Past Medical History: Chest Pain / Angina, COPD, Eye Disorder, Fibromyalgia, GERD/Reflux, GI Bleed, Hypertension, Osteoarthritis (OA), Thyroid Disorder Additional Past Medical History / Comment(s): having difficulty swallowing, hx insulin resistance BEFORE HER BARIATRIC PROCEDURES. Migraines, hiatal hernia, thyroid nodule. Gastrojejunal perforation, pneumoperitoneum, upper abdominal pain due to hernia, glaucoma. hx of bleeding ulcer, hx perforated ulcer; per neurologist-autonomic dysfunction related to gastrosurgical history- pt states chronic nausea, intermittent vomitting after meals, chronic abd pain. History of Any Multi-Drug Resistant Organisms: None Reported Past Surgical History: Bariatric Surgery, Breast Surgery, Cholecystectomy, Orthopedic Surgery, Uterine Ablation Additional Past Surgical History / Comment(s): Gastric sleeve (03/2016). Colonoscopy & EGD 2017. 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 Surgery for pneumoperitoneum 04/2018 @[facility]. Adhesiolysis 09/2018. EXPLORATORY abd surg, HERNIA BOWEL HORVATH SPACE DEFECT @[facility] 08-27-19. Left carpel tunnel, breast reduction. ulcer repair, Revision of Albert en y and lysis of adhesions 02/22/24. EGD December 2024. Past Anesthesia/Blood Transfusion Reactions: Motion Sickness, Postoperative Naus ea & Vomiting (PONV) Additional Past Anesthesia/Blood Transfusion Reaction / Comment(s): Has never received blood Past Psychological History: Anxiety, Depression Smoking Status: Former smoker - Past Family History Mother Family Medical History: COPD, Respiratory Disorder Additional Family Medical History / Comment(s): Emphysema. Maternal great aunt had breast cancer. Father Additional Family Medical History / Comment(s): remote pilot operator w/ plane crash- age 23. Paternal grandmother had breast cancer. General Exam Limitations: no limitations General appearance: alert, in no apparent distress Head exam: Present: atraumatic, normocephalic, normal inspection Eye exam: Present: normal appearance, PERRL, EOMI. Absent: scleral icterus, conjunctival injection, periorbital swelling ENT exam: Present: normal exam, mucous membranes moist Neck exam: Present: normal inspection. Absent: tenderness, meningismus, lymphadenopathy Respiratory exam: Present: normal lung sounds bilaterally. Absent: respiratory distress, wheezes, rales, rhonchi, stridor Cardiovascular Exam: Present: regular rate, normal rhythm, normal heart sounds. Absent: systolic murmur, diastolic murmur, rubs, gallop, clicks GI/Abdominal exam: Present: soft, tenderness (Generalized), normal bowel sounds. Absent: distended, guarding, rebound, rigid Extremities exam: Present: normal inspection, full ROM, normal capillary refill. Absent: tenderness, pedal edema, joint swelling, calf tenderness Back exam: Present: normal inspection Neurological exam: Present: alert, oriented X3, CN II-XII intact Psychiatric exam: Present: normal affect, normal mood Skin exam: Present: warm, dry, intact, normal color. Absent: rash Course Vital Signs 02/19/25 02/19/25 02/19/25 15:46 17:55 21:20 Temperature 98.7 F Pulse Rate 74 74 96 Respiratory 18 20 18 Rate Blood Pressure 124/98 181/101 170/115 O2 Sat by Pulse 94 L 95 96 Oximetry 02/19/25 02/19/25 22:28 22:45 Temperature Pulse Rate 83 Respiratory 18 Rate Blood Pressure 123/77 O2 Sat by Pulse 96 Oximetry Medical Decision Making - Medical Decision Making Was pt. sent in by a medical professional or institution (, PA, BUSINESS OBJECTS DEVELOPER, urgent care, hospital, or chcf...) When possible be specific @ -Patient was sent from [facility] Did you speak to anyone other than the patient for history (EMS, parent, family, police, friend...)? What history was obtained from this source @ -Spoke with EMS for history Did you review nursing and triage notes (agree or disagree)? Why? @ -I reviewed and agree with nursing and triage notes Were old charts reviewed (outside hosp., previous admission, EMS record, old EKG, old radiological studies, urgent care reports/EKG's, chcf records)? Report findings @ -I reviewed the chart which were completed at the outside hospital today. Demonstrates that the patient has an anastomotic ulcer Differential Diagnosis (chest pain, altered mental status, abdominal pain women, abdominal pain men, vaginal bleeding, weakness, fever, dyspnea, syncope, headache, dizziness, GI bleed, back pain, seizure, CVA, palpatations, mental health, musculoskeletal)? @ -Differential Abdominal Pain Women: Appendicitis, Cholecystitis, diverticulosis, ischemic bowel, pancreatitis, hepatitis, UTI, gastroenteritis, AAA, incarcerated hernia, bowel obstruction, constipation, inflammatory bowel, hepatitis, peptic ulcer disease, splenic infarction, perforated viscus, vulvitis, ovarian torsion, PID, kidney stone, placenta abruption, this is not meant to be an all-inclusive list EKG interpreted by me (3pts min.). @ -Not done X-rays interpreted by me (1pt min.). @ -None done CT interpreted by me (1pt min.). @ -None done U/S interpreted by me (1pt. min.). @ -None done What testing was considered but not performed or refused? (CT, X-rays, U/S, labs)? Why? @ -CT and labs however patient already had this done at outside hospital What meds were considered but not given or refused? Why? @ -None Did you discuss the management of the patient with other professionals (professionals i.e. DrMaryan, PA, BUSINESS OBJECTS DEVELOPER, lab, RT, psych nurse, high school social science teacher, data services developer, teacher, articulation officer, case checker)? Give summary @ -Spoke with Dr. Stewart who does present to the emergency department to evaluate the patient Was smoking cessation discussed for >3mins.? @ -No Was critical care preformed (if so, how long)? @ -No Were there social determinants of health that impacted care today? How? (Homelessness, low income, unemployed, alcoholism, drug addiction, transportation, low edu. Level, literacy, decrease access to med. care, nursing home, rehab)? @ -No Was there de-escalation of care discussed even if they declined (Discuss DNR or withdrawal of care, Hospice)? DNR status @ -No What co-morbidities impacted this encounter? (DM, HTN, Smoking, COPD, CAD, Cancer, CVA, ARF, Chemo, Hep., AIDS, mental health diagnosis, sleep apnea, morbid obesity)? @ -Morbid obesity with gastric bypass Was patient admitted / discharged? Hospital course, mention meds given and route, prescriptions, significant lab abnormalities, going to OR and other pert inent info. @ -Upon arrival patient seen and evaluated in hallway 26. I did repeat laboratory studies. Patient was given nausea and pain medications. I called and spoke with Dr. Stewart who does present to the emergency department, evaluated the patient and will take the admission Undiagnosed new problem with uncertain prognosis? @ -No Drug Therapy requiring intensive monitoring for toxicity (Heparin, Nitro, Insulin, Cardizem)? @ -No Were any procedures done? @ -No Diagnosis/symptom? @ -Acute abdominal pain, acute anastomotic ulcer Acute, or Chronic, or Acute on Chronic? @ -Acute Uncomplicated (without systemic symptoms) or Complicated (systemic symptoms)? @ -Complicated Side effects of treatment? @ -No Exacerbation, Progression, or Severe Exacerbation? @ -No Poses a threat to life or bodily function? How? (Chest pain, USA, AR, pneumonia, PE, COPD, DKA, ARF, appy, cholecystitis, CVA, Diverticulitis, Homicidal, Suicidal, threat to staff... and all critical care pts) @ -No - Lab Data Result diagrams: 02/19/25 16:52 02/19/25 16:52 Lab Results 02/19/25 02/19/25 02/19/25 Range/Units 16:52 16:52 16:52 WBC 9.80 (4.50-10.00) 10*3/uL RBC 4.29 (4.10-5.20) 10*6/uL Hgb 12.8 (12.0-15.0) g/dL Hct 38.2 (37.2-46.3) % MCV 89.0 (80.0-97.0) fL MCH 29.8 (27.0-32.0) pg MCHC 33.5 (32.0-37.0) g/dL Plt Count 410 (140-440) 10*3/uL MPV 8.9 L (9.5-12.2) fL Immature Gran % (Auto) 0.2 % Neutrophils % 70.2 % Lymphocytes % 20.3 % Monocytes % 8.4 % Eosinophils % 0.6 % Basophils % 0.3 % Immature Gran # 0.02 (0.00-0.04) 10*3/uL Neutrophils # 6.88 (1.80-7.70) 10*3/uL Lymphocytes # 1.99 (0.90-5.00) 10*3/uL Monocytes # 0.82 (0.20-1.00) 10*3/uL Eosinophils # 0.06 (0.04-0.35) 10*3/uL Basophils # 0.03 (0.00-0.10) 10*3/uL Sodium 138 (137-145) mmol/L Potassium 4.0 (3.5-5.1) mmol/L Chloride 103 (98-107) mmol/L Carbon Dioxide 25 (22-30) mmol/L Anion Gap 10 mmol/L BUN 9 (7-17) mg/dL Creatinine 0.67 (0.52-1.04) mg/dL Est GFR (CKD-EPI)AfAm >90 (>60 ml/min/1.73 sqM) Est GFR (CKD-EPI)NonAf >90 (>60 ml/min/1.73 sqM) Glucose 95 (74-99) mg/dL Calcium 9.6 (8.4-10.2) mg/dL Total Bilirubin 1.1 (0.2-1.3) mg/dL AST 17 (14-36) U/L ALT 10 (4-34) U/L Alkaline Phosphatase 85 (38-126) U/L Troponin I <0.012 (0.000-0.034) ng/mL Total Protein 6.6 (6.3-8.2) g/dL Albumin 4.2 (3.5-5.0) g/dL Disposition Clinical Impression: Abdominal pain, History of Albert-en-Y gastric bypass Disposition: ADMITTED IP TO THIS HOSP Condition: Stable Is patient prescribed a controlled substance at d/c from ED?: No Time of Disposition: 18:37 Decision to Admit Reason: Admit from EC Decision Date: 02/19/25 Decision Time: 18:37
[2025-02-19 17:10] LABS: Basophils # (A) 0.03 10*3/uL (0.00-0.10); Basophils % (A) 0.3 %; Eosinophils # (A) 0.06 10*3/uL (0.04-0.35); Eosinophils % (A) 0.6 %; HCT 38.2 % (37.2-46.3); HGB 12.8 g/dL (12.0-15.0); Lymphocytes # (A) 1.99 10*3/uL (0.90-5.00); Lymphocytes % (A) 20.3 %; MCH 29.8 pg (27.0-32.0); MCHC 33.5 g/dL (32.0-37.0); MCV 89.0 fL (80.0-97.0); Monocytes # (A) 0.82 10*3/uL (0.20-1.00); Monocytes % (A) 8.4 %; Neutrophils # (A) 6.88 10*3/uL (1.80-7.70); Neutrophils % (A) 70.2 %; Platelet Count 410 10*3/uL (140-440); RBC 4.29 10*6/uL (4.10-5.20); RDW 12.7 % (11.5-14.5); WBC 9.80 10*3/uL (4.50-10.00)
[2025-02-19 17:25] LABS: ALT 10 U/L (4-34); AST 17 U/L (14-36); African American GFR (CKD) >90 (>60 ml/min/1.73 sqM); Albumin 4.2 g/dL (3.5-5.0); Alkaline Phosphatase 85 U/L (38-126); Anion Gap 10 mmol/L; Blood Urea Nitrogen 9 mg/dL (7-17); Calcium 9.6 mg/dL (8.4-10.2); Carbon Dioxide 25 mmol/L (22-30); Chloride 103 mmol/L (98-107); Glucose 95 mg/dL (74-99); Non-African American GFR(CKD) >90 (>60 ml/min/1.73 sqM); Potassium 4.0 mmol/L (3.5-5.1); Sodium 138 mmol/L (137-145); Total Protein 6.6 g/dL (6.3-8.2)
[2025-02-19] MEDS: HYDROmorphone 1 MG/ML 1 ML SYRINGE IVP STA (17:59)
[2025-02-19] MEDS: SODIUM CHLORIDE 0.9% 1,000 ML IV ONE (18:09)
[2025-02-19] MEDS: diphenhydrAMINE 50 MG/ML 1 ML VIAL IVP STA (18:13)
[2025-02-19] MEDS: METOCLOPRAMIDE 5 MG/ML 2 ML VIAL IVP STA (18:14)
[2025-02-19] MEDS ORDERED: NALOXONE 0.4 MG/ML 1 ML VIAL IV PRN ×2 (18:37→19:46)
[2025-02-19] MEDS ORDERED: ALBUTEROL NEBULIZED 2.5 MG/3 ML INHALATION PRN (19:41)
[2025-02-19] MEDS ORDERED: PROCHLORPERAZINE 10 MG TAB PO PRN (19:41)
[2025-02-19] MEDS: SODIUM CHLORIDE 0.9% 1,000 ML IV SCH (19:53)
[2025-02-19] MEDS: PANTOPRAZOLE 40 MG/10 ML VIAL IV SCH (19:53)
[2025-02-19] MEDS: PANTOPRAZOLE 40 MG/10 ML VIAL IVP SCH (20:35)
[2025-02-19] MEDS: GABAPENTIN 300 MG CAP PO SCH (20:54)
[2025-02-19] MEDS: SUCRALFATE 1 GM TAB PO SCH (20:54)
[2025-02-19] MEDS: LEVOTHYROXINE 75 MCG TAB PO SCH (21:04)
[2025-02-19] MEDS: HYDROmorphone 1 MG/ML 1 ML SYRINGE IVP PRN (21:54)
[2025-02-19] MEDS: LOSARTAN 50 MG TAB PO STA (21:54)
[2025-02-19] MEDS ORDERED: ALPRAZolam 0.25 MG TAB PO PRN (22:00)
[2025-02-19] MEDS: ONDANSETRON 4 MG/2 ML VIAL IVP PRN (22:00)
[2025-02-19] MEDS: fentaNYL PCA 500 MCG/50 ML BAG IV SCH (23:25)
[2025-02-20] MEDS: LOSARTAN 50 MG TAB PO SCH (09:11)
[2025-02-20] MEDS: SERTRALINE 50 MG TAB PO SCH (09:11)
[2025-02-20 09:37] LABS: Anion Gap 11.50 mmol/L (4.00-12.00); BUN/Creat Ratio 10.00 Ratio (12.00-20.00); Blood Urea Nitrogen 8.0 mg/dL (9.0-27.0); Calcium 8.5 mg/dL (8.7-10.3); Carbon Dioxide 23.5 mmol/L (21.6-31.8); Chloride 105 mmol/L (96-109); Glucose 92 mg/dL (70-110); Potassium 4.5 mmol/L (3.5-5.5); Sodium 140 mmol/L (135-145)
[2025-02-20] MEDS: SYMBICORT 160-4.5 MCG INHALER INHALATION SCH (10:02)
[2025-02-20] MEDS: TIOTROPIUM 2.5 MCG INHALER INHALATION SCH (10:02)
[2025-02-20 12:03] LABS: Basophils # (A) 0.04 X 10*3/uL (0.00-0.10); Basophils % (A) 0.5 %; Eosinophils # (A) 0.11 X 10*3/uL (0.04-0.35); Eosinophils % (A) 1.5 %; HCT 38.1 % (37.2-46.3); HGB 11.8 g/dL (12.0-15.0); Immature Grans, Automated 0.50 %; Lymphocytes # (A) 1.83 X 10*3/uL (0.90-5.00); Lymphocytes % (A) 24.2 %; MCH 29.2 pg (27.0-32.0); MCHC 31.0 g/dL (32.0-37.0); MCV 94.3 FL (80.0-97.0); Monocytes # (A) 0.83 X 10*3/uL (0.20-1.00); Monocytes % (A) 11.0 %; NRBC Per 100 WBC 0 X 10*3/uL (0.00-0.01); Neutrophils # (A) 4.72 X 10*3/uL (1.80-7.70); Neutrophils % (A) 62.3 %; Platelet Count 386 X 10*3/uL (140-440); RBC 4.04 X 10*6/uL (4.10-5.20); RDW 12.9 % (11.5-14.5); WBC 7.57 X 10*3/uL (4.50-10.00)
[2025-02-20] MEDS ORDERED: LORazepam 1 MG/0.5 ML VIAL IV PRN (12:23)
[2025-02-20] MEDS: ONDANSETRON 4 MG/2 ML VIAL IVP SCH (15:01)
[2025-02-20] MEDS: MAGNESIUM SULFATE-D5W PMX 1 GM in DEXTROSE/WATER 1 100ML.BAG IVPB SCH (20:40)
[2025-02-20] MEDS: PROCHLORPERAZINE INJ 10 MG/2 ML VIAL IVP PRN (21:04)
--- NOTE | 2025-02-21 15:02 | P.PN ---
Subjective Progress Note Date: 02/21/25 CHIEF COMPLAINT: Gastrojejunal ulcer, intractable HISTORY OF PRESENT ILLNESS: The patient is a 59-year-old female transferred from outside institution due to intractable epigastric pain including nausea nausea and vomiting from gastrojejunal ulcer. Patient's medications and diet has been adjusted. She is able to now tolerate liquid with protein goals of 80 to 100 g daily. She is having bowel movements. Patient reports improvement of her pain with fentanyl PARASITOLOGIST. ROS: Nausea improving. No bowel movements. No fevers or chills. No new chest pain. No productive sputum PHYSICAL EXAM: VITAL SIGNS: Reviewed CONSTITUTIONAL: Well developed and in no acute distress. EYES: Conjuctivae without sclera icterus. Extraocular movements grossly intact. HEAD, EARS, NOSE, THROAT: Moist buccal mucosa. Head is atraumatic, normocephalic. Hears conversational speech. No nasal drainage. RESPIRATORY: Non-labored respirations and equal bilateral excursions. CARDIOVASCULAR: Palpable 2+ radial pulses. ABDOMEN: No diffuse peritonitis. Mild epigastric tenderness. MUSCULOSKELETAL: No gross deformity of the lower extremities noted. No clubbing. No cyanosis. SKIN: Good skin turgor. Well perfused. NEUROLOGIC: Cranial nerves II through XII grossly intact. No focal or lateralizing signs. PSYCH: Appropriate affect. Alert and oriented to person, place and time. CLINICAL LABS: Reviewed. Magnesium 2.2. ASSESSMENT: 1. 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 Epigastric abdominal pain 3. Chronic pain syndrome PLAN: 1. Will continue with fentanyl PARASITOLOGIST as this is improving her overall pain management. Goal of transition to fentanyl patch to avoid oral narcotics disc ussed. Involvement of pain specialist advised. 2. Continue with protein shakes 80 to 100 g daily. 3. Antiemetics schedule advised. Patient has intolerance to scopolamine patch due to acute angle glaucoma. 4. Surgical options for conversion from a gastric bypass to an esophagojejunostomy described in detail including risk of esophageal strictures and additional weight loss was described. Dictation was produced using [employer] dictation software. Please excuse any grammatical, word or spelling errors. Objective - Vital Signs Vital signs: Vital Signs Temp 98.2 F 02/21/25 07:33 Pulse 62 02/21/25 07:33 Resp 16 02/21/25 07:33 BP 163/83 02/21/25 07:33 Pulse Ox 96 02/21/25 07:33 FiO2 Intake & Output 02/20/25 02/21/25 02/21/25 18:59 06:59 18:59 Intake Total 1320 Balance 1320 Intake: Oral 1320 Other: Voiding Method Toilet Toilet # Voids 3 5 # Bowel Movements 0 - Labs CBC & Chem 7: 02/20/25 04:38 02/20/25 04:34
--- NOTE | 2025-02-21 15:06 | P.PN ---
Subjective Progress Note Date: 02/20/25 CHIEF COMPLAINT: Gastrojejunal ulcer, intractable HISTORY OF PRESENT ILLNESS: The patient is a 59-year-old female transferred from outside institution 02/19/2025 due to intractable abdominal pain and large gastrojejunal ulcer with partial obstruction. Patient reports pain is somewhat improving. She reports intractable nausea and vomiting last night. ROS: No fevers or chills. No new chest pain. No productive sputum PHYSICAL EXAM: VITAL SIGNS: Reviewed CONSTITUTIONAL: Well developed and in no acute distress. EYES: Conjuctivae without sclera icterus. Extraocular movements grossly intact. HEAD, EARS, NOSE, THROAT: Moist buccal mucosa. Head is atraumatic, normocephalic. Hears conversational speech. No nasal drainage. RESPIRATORY: Non-labored respirations and equal bilateral excursions. CARDIOVASCULAR: Palpable 2+ radial pulses. ABDOMEN: Focal epigastric tenderness. MUSCULOSKELETAL: No gross deformity of the lower extremities noted. No clubbing. No cyanosis. SKIN: Good skin turgor. Well perfused. NEUROLOGIC: Cranial nerves II through XII grossly intact. No focal or laterali zing signs. PSYCH: Appropriate affect. Alert and oriented to person, place and time. CLINICAL LABS: Reviewed. CBC within normal limits. ASSESSMENT: 1. Gastrojejunal ulcer with obstruction 2. Epigastric abdominal pain 3. Chronic pain syndrome 4. Intractable nausea and vomiting PLAN: 1. Trial of chopped diet described as she also is edentulous of the maxilla. 2. Recommend increased protein of at least 80 to 90 g daily for nutritional supplement 3. Adjustment of antiemetics to include Compazine and magnesium infusion. 4. To minimize risk of ileus, fentanyl INFRASTRUCTURE DESIGN ENGINEER being used also to address and avoid worsening nausea and vomiting. Dictation was produced using [employer] dictation software. Please excuse any grammatical, word or spelling errors. Objective - Vital Signs Vital signs: Vital Signs Temp 98.2 F 02/21/25 07:33 Pulse 62 02/21/25 07:33 Resp 16 02/21/25 07:33 BP 163/83 02/21/25 07:33 Pulse Ox 96 02/21/25 07:33 FiO2 Intake & Output 02/20/25 02/21/25 02/21/25 18:59 06:59 18:59 Intake Total 1320 Balance 1320 Intake: Oral 1320 Other: Voiding Method Toilet Toilet # Voids 3 5 # Bowel Movements 0 - Labs CBC & Chem 7: 02/20/25 04:38 02/20/25 04:34
[2025-02-21] MEDS ORDERED: LORazepam 1 MG TAB PO PRN (18:52)
--- NOTE | 2025-02-22 19:52 | P.PN ---
Subjective Progress Note Date: 02/22/25 CHIEF COMPLAINT: Gastrojejunal ulcer, intractable HISTORY OF PRESENT ILLNESS: The patient is a 59-year-old female transferred from outside institution 02/19/2025 due to intractable abdominal pain and large gastrojejunal ulcer with partial obstruction. Patient reports moderate improvement of her epigastric and overall pain. She had 1 hour of pain-free event. Patient had blood of her IV and had needed multiple sticks to place 1 IV. ROS: No fevers or chills. No new chest pain. No productive sputum PHYSICAL EXAM: VITAL SIGNS: Reviewed CONSTITUTIONAL: Well developed and in no acute distress. EYES: Conjuctivae without sclera icterus. Extraocular movements grossly intact. HEAD, EARS, NOSE, THROAT: Moist buccal mucosa. Head is atraumatic, normocephalic. Hears conversational speech. No nasal drainage. RESPIRATORY: Non-labored respirations and equal bilateral excursions. CARDIOVASCULAR: Palpable 2+ radial pulses. ABDOMEN: Nondistended. MUSCULOSKELETAL: No gross deformity of the lower extremities noted. No clubbing. No cyanosis. SKIN: Good skin turgor. Well perfused. NEUROLOGIC: Cranial nerves II through XII grossly intact. No focal or lateralizing signs. PSYCH: Appropriate affect. Alert and oriented to person, place and time. CLINICAL LABS: Reviewed. No new labs. ASSESSMENT: 1. Gastrojejunal ulcer with obstruction 2. Epigastric abdominal pain 3. Chronic pain syndrome 4. Intractable nausea and vomiting PLAN: 1. Will obtain midline due to hard IV stick. 2. Robotic assisted laparoscopic esophageal jejunostomy with total gastrectomy and resection of the gastric pouch described with intraoperative EGD. 3. N.p.o. after midnight. 4. CBC and CMP for tomorrow morning 5. All questions addressed with patient including overall anticipated hospital course and disposition for home following surgery. Dictation was produced using [employer] dictation software. Please excuse any grammatical, word or spelling errors. Objective - Vital Signs Vital signs: Vital Signs Temp 98.1 F 02/22/25 19:01 Pulse 66 02/22/25 19:01 Resp 17 02/22/25 19:01 BP 155/89 02/22/25 19:01 Pulse Ox 92 L 02/22/25 19:01 FiO2 Intake & Output 02/22/25 02/22/25 02/23/25 06:59 18:59 06:59 Other: Voiding Method Toilet Toilet # Voids 5 4 # Bowel Movements 1 - Labs CBC & Chem 7: 02/20/25 04:38 02/20/25 04:34
[2025-02-23 04:08] LABS: Basophils # (A) 0.02 10*3/uL (0.00-0.10); Basophils % (A) 0.5 %; Eosinophils # (A) 0.15 10*3/uL (0.04-0.35); Eosinophils % (A) 3.4 %; HCT 33.4 % (37.2-46.3); HGB 10.6 g/dL (12.0-15.0); Lymphocytes # (A) 1.66 10*3/uL (0.90-5.00); Lymphocytes % (A) 37.7 %; MCH 29.5 pg (27.0-32.0); MCHC 31.7 g/dL (32.0-37.0); MCV 93.0 fL (80.0-97.0); Monocytes # (A) 0.37 10*3/uL (0.20-1.00); Monocytes % (A) 8.4 %; Neutrophils # (A) 2.19 10*3/uL (1.80-7.70); Neutrophils % (A) 49.8 %; Platelet Count 337 10*3/uL (140-440); RBC 3.59 10*6/uL (4.10-5.20); RDW 12.6 % (11.5-14.5); WBC 4.40 10*3/uL (4.50-10.00)
[2025-02-23 04:25] LABS: ALT 8 U/L (4-34); AST 19 U/L (14-36); African American GFR (CKD) >90 (>60 ml/min/1.73 sqM); Albumin 3.2 g/dL (3.5-5.0); Albumin/Globulin Ratio 1.5; Alkaline Phosphatase 51 U/L (38-126); Anion Gap 6 mmol/L; Blood Urea Nitrogen 7 mg/dL (7-17); Calcium 9.0 mg/dL (8.4-10.2); Carbon Dioxide 26 mmol/L (22-30); Chloride 107 mmol/L (98-107); Globulin 2.1 g/dL; Glucose 71 mg/dL (74-99); Non-African American GFR(CKD) >90 (>60 ml/min/1.73 sqM); Potassium 4.2 mmol/L (3.5-5.1); Sodium 139 mmol/L (137-145); Total Protein 5.3 g/dL (6.3-8.2)
[2025-02-23] MEDS: LACTATED RINGERS 1,000 ML BAG IV STA (09:58)
[2025-02-23] MEDS: IV FLUID CONTINUATION 1,000 ML IV ONE (09:59)
[2025-02-23] MEDS: DEXAMETHASONE SOD PHOSPHATE 4 MG/ML 1 ML VIAL IVP STA (10:30)
[2025-02-23] MEDS: MIDAZOLAM 2 MG/2 ML VIAL IV ONE (10:54)
[2025-02-23] MEDS: fentaNYL (PF) 50 MCG/ML 2 ML AMP IVP PRN (10:55)
--- NOTE | 2025-02-23 11:05 | P.ANPRN ---
Procedure Note - Anesthesia - Nerve Block Performed Bilateral Erector Spinae Single Time Out Performed: Yes Date of Procedure: 02/23/25 Procedure Start Time: 10:53 Procedure Stop Time: 10:58 Location of Patient: PreOp Indication: Acute Post-Operative Pain, Analgesia, Requested by Surgeon Sedation Type: Sedate with meaningful contact maintained Preparation: Sterile Prep Position: Prone Needle Types: Pajunk Needle Gauge: 21 Ultrasound used to visualize needle placement: Yes Ultrasound used to observe medication spread: Yes Injectate: 0.5% Ropivacaine (see comment for volume) (Ropiv 20ml+Decadron 4mg, Needle level T-7,---Eachside) Blood Aspirated: No Pain Paresthesia on Injection Noted: No Resistance on Injection: Normal Image Stored and Saved: Yes Events: Uneventful and Well Tolerated
[2025-02-23] MEDS: HEPARIN SODIUM,PORCINE 5,000 UNIT/ML 1 ML VIAL SQ STA (11:22)
[2025-02-23] MEDS ORDERED: PROPOFOL 10 MG/ML 20 ML VIAL IV ONE (11:56)
[2025-02-23] MEDS ORDERED: ROCURONIUM 10 MG/ML (5 ML VIAL) IV ONE (11:56)
[2025-02-23] MEDS ORDERED: fentaNYL (PF) 50 MCG/ML 2 ML AMP ONE (11:56)
[2025-02-23] MEDS ORDERED: SUCCINYLCHOLINE CHLORIDE 200 MG/10 ML VIAL IV ONE (11:56)
[2025-02-23] MEDS ORDERED: DEXAMETHASONE SOD PHOSPHATE 4 MG/ML 1 ML VIAL ONE (11:56)
[2025-02-23] MEDS ORDERED: ROPIVACAINE 5 MG/ML 30 ML VIAL ONE (11:56)
[2025-02-23] MEDS ORDERED: LIDOCAINE 1% INJ 10MG/ML (20 ML MDV) ONE (11:56)
[2025-02-23] MEDS ORDERED: PHENYLEPHRINE 10 MG/ML VIAL ONE (11:56)
[2025-02-23] MEDS ORDERED: ePHEDrine 50 MG/ML 1 ML VIAL ONE (11:56)
--- NOTE | 2025-02-23 12:02 | P.GSHP ---
History of Present Illness H&P Date: 02/19/25 CHIEF COMPLAINT: Gastrojejunal ulcer with atypical chest pain HISTORY OF PRESENT ILLNESS: Josefina Bird is a 59-year-old female who is status post sleeve gastrectomy to gastric bypass 02/18/2018. She is over 7 years out. She presents as transfer from [place] emergency room due to severe atypical chest pain. Patient reports she was babysitting her grandchild where she developed acute onset epigastric pain. She went to the local facility where she was diagnosed with a large gastrojejunal ulcer risk of perforation. Patient was transferred from ER to ER due to the severe abdominal pain. Patient reports difficulty with breathing. She also reports difficulty with pain control. Her previous weight was 201 pounds, BMI 36.8. [place] body weight for 5 foot 2 inches is 135 pounds. Today she comes in weighing 127 pounds. She has lost 71 pounds lifetime. Lifetime percent excess weight loss 112 %. Body mass index reduced from 36.8 down to 23.2. PAST MEDICAL HISTORY: 1. Obstructive sleep apnea. 2. Gastroesophageal reflux disease. 3. History of hiatal hernia. 4. Carpal tunnel syndrome. 5. Diabetes type 2. 6. Hypothyroidism. 7. Chronic obstructive pulmonary disease. 8. Anxiety. 9. Colon polyps. 10. Sleep apnea. 11. Morbid obesity due to excess calories, BMI 36.8, initial PAST SURGICAL HISTORY: 1. Uterine ablation. 2. Left carpal tunnel release. 3. Bilateral breast reduction. 4. Upper endoscopy. 5. Lower endoscopy. 6. Status post sleeve gastrectomy. 7. Cholecystectomy. 8. Repair of perforated gastrojejunal ulcer at outside institution, Apr 2018 9. Closure of internal hernias, diagnostic laparoscopy at [place], Aug 2019 10. Revision of gastric bypass 2023 MEDICATIONS: Reviewed ALLERGIES: Reviewed SOCIAL HISTORY: Former tobacco user. FAMILY HISTORY: Pertinent for morbid obesity in her mother. Also no reports of Crohn's disease or ulcerative colitis. Denies any family history of gastrointestinal cancers. She has a mother who has morbid obesity. REVIEW OF SYSTEMS: CONSTITUTIONAL: Her ideal body weight is 135 pounds for her 5 foot 2 frame. Heighest weight of 201 pounds. Prior BMI 36.8. GASTROINTESTINAL: No reports of dumping syndrome. History of colon polyps. History of ulcers prior to gastric bypass. ENDOCRINE: Improved insulin resistance. She is no longer on medications for diabetic control. CARDIOVASCULAR: History of hypertension. No palpitations. RESPIRATORY: Chronic obstructive pulmonary disease. NEURO: Migraine headaches. No strokes. Has fibromyalgia. HEENT: Denies any troubles with vision or hearing. Gets acute angle glaucoma from scopolamine patch GENITOURINARY: History of endometrial ablation. MUSCULOSKELETAL: Reports osteoarthritis of the in the lower back and hips secondary to morbid obesity. PSYCH: Has anxiety and depression. HEMATOLOGIC: Denies any easy bruising and bleeding or prior venous thromboembolic event. SKIN: No rash. No skin cancer. PHYSICAL EXAM: VITAL SIGNS: 5 foot 2, 127 pounds. Body mass index 23.2 ABDOMEN: Soft and non-distended. Tender epigastrium. MUSCULOSKELETAL: No clubbing, cyanosis, or edema. GENERAL: Well-developed female in no acute distress. HEENT: No sclera icterus. Extraocular movements grossly intact. Moist buccal mucosa. Head is atraumatic, normocephalic. Hears conversational speech. No nasal drainage. Edentulous maxilla. NECK: Supple without lymphadenopathy. No JV distention. CHEST: Non-labored respirations and equal bilateral excursions. CARDIOVASCULAR: Regular rate and rhythm. NEUROLOGIC: No focal or lateralizing signs. Cranial nerves II through XII grossly intact. PSYCH: Appropriate affect. Alert and oriented to person, place and time. SKIN: Well-perfused. Good skin turgor. LABS: Upon admission demonstrates normal CBC and hemoglobin including CMP. STUDIES: February [address] of the abdomen pelvis independently reviewed demonstrates persistent diaphragmatic hiatal hernia. No free identified. Presence of gastric bypass. No mesenteric swirl or internal hernia. Thickening of the gastric pouch identified at the gastrojejunal anastomosis. This is my independent interpretation. CT of the abdomen pelvis January 2025 reviewed demonstrates presence of gastric bypass. No free air. Presence of diaphragmatic hiatal hernia. This is my independent interpretation. REPORTS: CT abdomen pelvis report January 2025 demonstrate cholecystectomy changes with esophageal hiatal hernia, mild esophageal thickening. RECORDS: December 2024 upper endoscopy, Esophagojejunoscopy with balloon dilation 12 to 15 mm, for gastric stenosis; Esophagojejunoscopy with cold forcep biopsies esophagus, gastric pouch, jejunum: " Presbyesophagus with tertiary contractions Gastrojejunal anastomosis with acute ulceration including bleeding and partial obstruction Squamocolumnar junction and pouch 32 cm to 36 cm Gastrojejunal dilated 12 to 15 mm balloon Cold forcep biopsies obtained of esophagus, gastric pouch and jejunum" ASSESSMENT: 1. Intractable epigastric abdominal pain with intractable nausea and vomiting 2. 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 Status post gastric bypass. 4. History of perforated gastrojejunal ulcer 5. Fibromyalgia 6. Depressive disorder 7. Chronic obstructive pulmonary disease 8. Hiatal hernia 9. Migraines, chronic 10. Hypothyroidism 11. Generalized anxiety disorder 12. Acute angle glaucoma and reaction from scopolamine 13. Previous history of morbid obesity due to excess calories 14. Body mass index reduced from 36.8 down to 23.8 PLAN: 1. Patient has been transferred from outside facility [facility] due to intractable abdominal pain including tractable nausea vomiting poor poor oral intake. 2. Admission with IV fluids including monitored dietary adjustments described. 3. Patient has worsening symptoms of gastric renal ulcer with obstruction and past history of bleeding. Recommend Protonix 40 mg twice daily. 4. Carafate 1 g 3 times daily. 5. Adjustment to high-protein diet via liquid shakes also reviewed for adequate nutritional intake. 6. Will likely need surgical invention due to worsening symptoms 7. Inpatient hospitalization described due to acute chronic gastrojejunal ulcer with obstruction and past bleeding. Admission over 2 nights described. Past Medical History Past Medical History: Chest Pain / Angina, COPD, Eye Disorder, Fibromyalgia, GERD/Reflux, GI Bleed, Hypertension, Osteoarthritis (OA), Thyroid Disorder Additional Past Medical History / Comment(s): having difficulty swallowing, hx insulin resistance BEFORE HER BARIATRIC PROCEDURES. Migraines, hiatal hernia, thyroid nodule. Gastrojejunal perforation, pneumoperitoneum, upper abdominal pain due to hernia, glaucoma. hx of bleeding ulcer, hx perforated ulcer; per neurologist-autonomic dysfunction related to gastrosurgical history- pt states chronic nausea, intermittent vomitting after meals, chronic abd pain. History of Any Multi-Drug Resistant Organisms: None Reported Past Surgical History: Bariatric Surgery, Breast Surgery, Cholecystectomy, Orthopedic Surgery, Uterine Ablation Additional Past Surgical History / Comment(s): Gastric sleeve (03/2016). Colonoscopy & EGD 2017. 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 Surgery for pneumoperitoneum 04/2018 @[facility]. Adhesiolysis 09/2018. EXPLORATORY abd surg, HERNIA BOWEL HORVATH SPACE DEFECT @[facility] 08-27-19. Left carpel tunnel, breast reduction. ulcer repair, Revision of Albert en y and lysis of adhesions 02/22/24. EGD December 2024. Past Anesthesia/Blood Transfusion Reactions: Motion Sickness, Postoperative Nausea & Vomiting (PONV) Additional Past Anesthesia/Blood Transfusion Reaction / Comment(s): Has never received blood Past Psychological History: Anxiety, Depression Smoking Status: Former smoker - Past Family History Mother Family Medical History: COPD, Respiratory Disorder Additional Family Medical History / Comment(s): Emphysema. Maternal great aunt had breast cancer. Father Additional Family Medical History / Comment(s): ferryboat pilot w/ plane crash- age 23. Paternal grandmother had breast cancer. Medications and Allergies Home Medications Medication Instructions Recorded Confirmed Type ALPRAZolam [ALPRAZolam XR] 0.5 mg PO BID PRN 04/13/22 02/19/25 History Levothyroxine Sodium [Synthroid] 37.5 mcg PO HS 04/13/22 02/19/25 History Fluticasone/Umeclidin/Vilanter 1 puff INHALATION RT-DAILY 05/02/22 02/19/25 History [Trelegy Ellipta 100-62.5-25] Albuterol Sulfate [Proair Hfa] 2 puff INHALATION RT-QID PRN 11/27/23 02/19/25 History Olmesartan [Benicar] 20 mg PO DAILY 01/09/24 02/19/25 History Gabapentin 300 mg PO HS 12/17/24 02/19/25 History Omeprazole [PriLOSEC] 40 mg PO BID #60 cap 12/24/24 02/19/25 Rx Sucralfate [Carafate] 1 gm PO BID #120 tablet 12/24/24 02/19/25 Rx Calcium(Unknown Dose) 1 tab PO DAILY 01/05/25 02/19/25 History SUMAtriptan succinate [Imitrex] 100 mg PO DAILY PRN 01/05/25 02/19/25 History Sertraline [Zoloft] 50 mg PO DAILY 01/05/25 02/19/25 History Prochlorperazine [Compazine] 10 mg PO Q6H PRN #20 tab 01/07/25 02/19/25 Rx Hydrocodone/Apap 5/300mg 1 tab PO Q6H PRN 02/19/25 02/19/25 History methocarbamoL [Robaxin-750] 750 mg PO Q4H PRN 02/19/25 02/19/25 History Allergies Allergy/AdvReac Type Severity Reaction Status Date / Time latex Allergy states Verified 02/19/25 16:53 "feels like chest tightens" ibuprofen [From Motrin] AdvReac due to Verified 02/19/25 16:53 ulcers NSAIDS (Non-Steroidal AdvReac DUE TO Verified 02/19/25 16:53 Anti-Inflamma STOMACH ULCERS scopolamine AdvReac contraindictated Verified 02/19/25 16:53 with glaucoma Surgical - Exam Vital Signs Temp Pulse Resp BP Pulse Ox 98.7 F 74 18 124/98 94 L 02/19/25 15:46 02/19/25 15:46 02/19/25 15:46 02/19/25 15:46 02/19/25 15:46 Results - Labs 02/23/25 03:45 02/23/25 03:45 Abnormal Lab Results - Last 24 Hours (Table) 02/19/25 Range/Units 16:52 MPV 8.9 L (9.5-12.2) fL Diabetes panel 02/19/25 Range/Units 16:52 Sodium 138 (137-145) mmol/L Potassium 4.0 (3.5-5.1) mmol/L Chloride 103 (98-107) mmol/L Carbon Dioxide 25 (22-30) mmol/L BUN 9 (7-17) mg/dL Creatinine 0.67 (0.52-1.04) mg/dL Glucose 95 (74-99) mg/dL Calcium 9.6 (8.4-10.2) mg/dL AST 17 (14-36) U/L ALT 10 (4-34) U/L Alkaline Phosphatase 85 (38-126) U/L Total Protein 6.6 (6.3-8.2) g/dL Albumin 4.2 (3.5-5.0) g/dL Calcium panel 02/19/25 Range/Units 16:52 Calcium 9.6 (8.4-10.2) mg/dL Albumin 4.2 (3.5-5.0) g/dL Pituitary panel 02/19/25 Range/Units 16:52 Sodium 138 (137-145) mmol/L Potassium 4.0 (3.5-5.1) mmol/L Chloride 103 (98-107) mmol/L Carbon Dioxide 25 (22-30) mmol/L BUN 9 (7-17) mg/dL Creatinine 0.67 (0.52-1.04) mg/dL Glucose 95 (74-99) mg/dL Calcium 9.6 (8.4-10.2) mg/dL Adrenal panel 02/19/25 Range/Units 16:52 Sodium 138 (137-145) mmol/L Potassium 4.0 (3.5-5.1) mmol/L Chloride 103 (98-107) mmol/L Carbon Dioxide 25 (22-30) mmol/L BUN 9 (7-17) mg/dL Creatinine 0.67 (0.52-1.04) mg/dL Glucose 95 (74-99) mg/dL Calcium 9.6 (8.4-10.2) mg/dL Total Bilirubin 1.1 (0.2-1.3) mg/dL AST 17 (14-36) U/L ALT 10 (4-34) U/L Alkaline Phosphatase 85 (38-126) U/L Total Protein 6.6 (6.3-8.2) g/dL Albumin 4.2 (3.5-5.0) g/dL
--- NOTE | 2025-02-23 12:04 | P.HPADDEND ---
H&P Addendum H&P Addendum Date: 02/23/25 CBC and CMP reviewed demonstrating anemia, hemoglobin 10.6. Hemoglobin decreased from 12.8 without any obvious signs of bleeding. Patient has not had surgery. Additionally, albumin demonstrates less than 4.0 since admission. Despite adjustment of high-protein diet and multiple high-protein shakes, pa tient at elevated risk for complications including least, obstruction, infection due to hypoalbuminemia, albumin 3.2
[2025-02-23] MEDS: ceFAZolin 1,000 MG VIAL IVPB ONE (12:15)
[2025-02-23] MEDS: LIDOCAINE 1%-EPI 1:100,000 20 ML VIAL SQ ONE (12:45)
[2025-02-23] MEDS: LACTATED RINGERS 1,000 ML IV ONE (13:41)
--- NOTE | 2025-02-23 16:00 | P.OP ---
Date of Procedure: 02/23/25 Description of Procedure: SURGEON: SENG BHATIA MD PREOPERATIVE DIAGNOSES: 1. Intractable epigastric abdominal pain with intractable nausea and vomiting 2. 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 Status post gastric bypass. 4. History of perforated gastrojejunal ulcer 5. Fibromyalgia 6. Depressive disorder 7. Chronic obstructive pulmonary disease 8. Hiatal hernia 9. Migraines, chronic 10. Hypothyroidism 11. Generalized anxiety disorder 12. Acute angle glaucoma and reaction from scopolamine 13. Previous history of morbid obesity due to excess calories 14. Body mass index reduced from 36.8 down to 23.8 POSTOPERATIVE DIAGNOSES: 1. Acute on chronic gastrojejunal ulcer with perforation 2. Perigastric perihepatic intra-abdominal adhesions 3. Status post gastric bypass. 4. History of perforated gastrojejunal ulcer 5. Fibromyalgia 6. Depressive disorder 7. Chronic obstructive pulmonary disease 8. Hiatal hernia 9. Migraines, chronic 10. Hypothyroidism 11. Generalized anxiety disorder 12. Acute angle glaucoma and reaction from scopolamine 13. Previous history of morbid obesity due to excess calories 14. Body mass index reduced from 36.8 down to 23.8 15. Gastric stenosis OPERATION: 1. Robotic assisted da Sunday Xi laparoscopic extensive lysis of adhesions over 2 hours 2. Robotic assisted da Sunday Xi laparoscopic repair of perforated gastrojejunal ulcer, 2 cm 3. Intraoperative esophagogastrojejunoscopy. 4. ABORTED Robotic assisted da Sunday Xi laparoscopic gastrectomy with esophagojejunostomy ANESTHESIA: General with local ESTIMATED BLOOD LOSS: 10 mL SPECIMENS REMOVED: None. COMPLICATIONS: NONE. FINDINGS: 1. Severe perihepatic and perigastric adhesions requiring extensive lysis of adhesions over 2 hours 2. Gastric pouch with with anterior wall gastrojejunal perforation 2 cm repaired 3. Moderate inflammation along the hiatus with loss of tissue plane prohibiting transition of case of gastrectomy with esophagojejunostomy 4. Combination of methylene blue test, 60 cc negative for leak after repair 5. Air insufflation test, 60 cc negative for leak after repair 6. Initial upper endoscopy performed demonstrating gastric stenosis involving gastric pouch, 12 mm INDICATIONS: Josefina Altamirano is a 59-year-old female with a complicated surgical history of chronic gastroesophageal reflux disease including hyperinsulinemia and pre-existing history of ulcers. Patient has sleeve gastrectomy and continue to progress with severe intractable reflux disease. She then had conversion from sleeve to a gastric bypass. Patient developed perforation in the past followed by complete revision of her gastric bypass. Patient presented today for conversion of esophago gastro jejunostomy to a esophagojejunostomy with complete resection of her gastric pouch. Benefits risks including leak, bleeding, infection, prolonged n.p.o. status, parenteral nutrition, TPN, prolonged hospitalization was reviewed at length. Patient was willing to accept risks. DESCRIPTION: The patient was brought into the operating room theater. Preoperatively she had received heparin subcutaneously for DVT prophylaxis. After general induction, the abdomen was prepped and draped in standard sterile fashion. Ioban draping was placed along the abdomen. A robotic da Sunday Xi system was prepped and primed. Proposed port sites were marked with indelible marker along the anterior axillary line bilaterally, mid clavicular line bilaterally with each port marked 10 cm from each other. The robotic stapler port was marked for the right midclavicular line including along the left midclavicular line. A 5 mm 0 degrees laparoscopic trocar entry was performed along the right upper quadrant. The abdomen was insufflated to 15 mmHg pressure, which she tolerated well. Diagnostic laparoscopy demonstrated no injury to bowel, viscera, or mesentery. The liver surface was unremarkable. Moderate perihepatic and perigastric adhesions were found along the epigastrium involving the proximal Albert limb. The left lobe of the liver was adherent to the abdominal wall. As a result, no additional liver retractor was used required for this case. An 8 mm camera port was placed left lateral to the umbilicus at the epigastrium, 13 cm distal to the xiphoid. Incisions were placed along previous trocar sites. Next, 12-mm robot stapler port was placed along the right mid abdomen. An 12 mm port was exchanged along the left upper quadrant. An 8 mm port was placed on the left lateral abdominal wall under direct localization. Please note that the ports were placed 18 to 20 cm away from the target anatomy of the stomach. Care was taken to check that each robotic arm was safely away from collision with the bed or the patient. The patient was repositioned in reverse Trendelenburg position at 25-degress after lowering the bed. The robot was docked over the patient. Using grasper for arm 3, a grasper for arm 1, including vessel sealer for arm 4, the robotic system was docked and primed as described. Instruments were interchanged by the reference assistant including endoscissors, the needle logging truck driver, and stapler. Prior to the intra-abdominal portion of the case, a intraoperative upper endoscopy was performed to evaluate the ulcer. I went to the head of the bed. Olympus Scope was passed along the posterior oropharynx. The pouch was entered where stricture of 12 mm was identified. The scope was passed into the proximal Albert limb. Inflammation of the gastric pouch was confirmed. The scope was left within the esophagus for additional assessment during the case. I had sat at the console. Extensive adhesions were found of the proximal Albert limb and gastric pouch were lysed adhesions performed using combination of blunt dissection including hook artery and vessel sealer. Lysis of adhesions over 2 hours performed with exposure of the caudate lobe of the liver. The anterior gastric pouch after dissection revealed a 2 cm defect consistent with a perforation. No spillage of gastric contact occurred. Inflammation of the surrounding tissue was confirmed as result of the moderate lysis of adhesions. The defect was measured from 11:00 to 3 o'clock position of the anterior gastric pouch. The tissue along the hiatus was completely fused with surrounding tissue prohibiting any mobilization of the hiatus or access to the pouches in the mediastinum or esophagus. As a result of the these findings, the intent of total gastrectomy of the gastric pouch with esophagojejunostomy was abandoned as a thoracic approach would be needed. The remnant stomach of the sleeve gastrectomy was mobilized and intact for future gastrostomy feeding tube. Using 3-0 Vicryl, multiple serosal to mucosal to mucosal serosal sutures in an interrupted fashion was placed involving the healthy tissue of the gastric pouch to the proximal remaining anastomosis. The 2 cm defect was closed in interrupted fashion until the defect was completely closed. I went to the head of the bed to insert the endoscope proximal to the repair where irrigation by the reference assistant was placed demonstrating evidence of leak. Additional confirmatory test using air from the endoscope was used also confirming no leak. Finally, methylene blue test 60 cc was placed within the endoscope also confirming no leak. Triple confirmatory leak test was performed. Confirming no leak. The Albert limb had easily insufflated. Tisseel was placed circumferentially over the repaired perforation of the gastrojejunostomy. As triple test demonstrated no leaks, drain was avoided. The bladder was found to be moderately distended with a Hernandez catheter placed at the end of the case for straight cath. All instruments and pneumoperitoneum were evacuated from the abdominal cavity. Liquid glue was applied to the skin. At the end of the procedure, needle, sponge and instrument count had been verified correct by the surgical oncologist. Straight catheterization performed at the end of the case using latex free instruments. Urine was completely clear. Sample for stat urine nicotine testing was sent. She had tolerated the procedure well and was extubated and taken to the postanesthesia unit in stable condition. Intraoperative findings were discussed with the patient's son, Rahul via telephone.
[2025-02-23] MEDS: ACETAMINOPHEN IV (For NPO) 1,000 MG in EMPTY BAG 1 BAG IVPB SCH (18:12)
[2025-02-23] MEDS: diphenhydrAMINE 50 MG/ML 1 ML VIAL IVP STA (18:52)
[2025-02-23] MEDS ORDERED: LORazepam 1 MG/0.5 ML VIAL IV PRN (19:27)
[2025-02-23] MEDS ORDERED: diphenhydrAMINE 50 MG/ML 1 ML VIAL IVP PRN (19:28)
[2025-02-23] MEDS: metroNIDAZOLE-NS PMX 500 MG in SALINE 1 100ML.BAG IVPB SCH ×2 (21:04→21:52)
[2025-02-23] MEDS: ARTIFICIAL TEARS-HYPROMELLOSE DROPS 15 ML BTL LEFT EYE PRN (21:54)
[2025-02-23] MEDS ORDERED: NALBUPHINE 10 MG/ML (10 ML MDV) IV PRN (23:23)
[2025-02-24] MEDS: SIMETHICONE 40 MG/0.6 ML DROPS 2,000 MG/30 ML BOTTLE PO SCH (00:10)
[2025-02-24 08:30] LABS: Basophils # (A) 0.02 X 10*3/uL (0.00-0.10); Basophils % (A) 0.2 %; Eosinophils # (A) 0 X 10*3/uL (0.04-0.35); Eosinophils % (A) 0 %; HCT 34.6 % (37.2-46.3); HGB 10.8 g/dL (12.0-15.0); Immature Grans, Automated 0.40 %; Lymphocytes # (A) 1.15 X 10*3/uL (0.90-5.00); Lymphocytes % (A) 11.9 %; MCH 28.7 pg (27.0-32.0); MCHC 31.2 g/dL (32.0-37.0); MCV 92.0 FL (80.0-97.0); Monocytes # (A) 0.53 X 10*3/uL (0.20-1.00); Monocytes % (A) 5.5 %; NRBC Per 100 WBC 0 X 10*3/uL (0.00-0.01); Neutrophils # (A) 7.92 X 10*3/uL (1.80-7.70); Neutrophils % (A) 82.0 %; Platelet Count 437 X 10*3/uL (140-440); RBC 3.76 X 10*6/uL (4.10-5.20); RDW 12.9 % (11.5-14.5); WBC 9.66 X 10*3/uL (4.50-10.00)
[2025-02-24] MEDS: ENOXAPARIN 40 MG/0.4 ML SYRINGE SQ SCH (08:38)
[2025-02-24 08:48] LABS: Anion Gap 10.10 mmol/L (4.00-12.00); Blood Urea Nitrogen 8.5 mg/dL (9.0-27.0); Calcium 8.6 mg/dL (8.7-10.3); Carbon Dioxide 24.9 mmol/L (21.6-31.8); Chloride 103 mmol/L (96-109); Magnesium 1.5 mg/dL (1.5-2.4); Potassium 4.5 mmol/L (3.5-5.5); Sodium 138 mmol/L (135-145)
--- NOTE | 2025-02-24 09:40 | P.PN ---
Subjective Progress Note Date: 02/24/25 CHIEF COMPLAINT: Gastrojejunal ulcer, intractable HISTORY OF PRESENT ILLNESS: The patient is a 59-year-old female transferred from outside institution 02/19/2025 due to intractable abdominal pain and large gastrojejunal ulcer with partial obstruction. She is status post extensive lysis of adhesions with repair of perforated gastrojejunal ulcer, 02/23/2025. She is postop day 1. Pain well-controlled. No nausea. Intraoperative findings were reviewed with her. Perforated ulcer found. ROS: No fevers or chills. No new chest pain. No productive sputum PHYSICAL EXAM: VITAL SIGNS: Reviewed CONSTITUTIONAL: Well developed and in no acute distress. EYES: Conjuctivae without sclera icterus. Extraocular movements grossly intact. HEAD, EARS, NOSE, THROAT: Moist buccal mucosa. Head is atraumatic, normocephalic. Hears conversational speech. No nasal drainage. RESPIRATORY: Non-labored respirations and equal bilateral excursions. CARDIOVASCULAR: Palpable 2+ radial pulses. ABDOMEN: Nondistended. MUSCULOSKELETAL: No gross deformity of the lower extremities noted. No clubbing. No cyanosis. SKIN: Good skin turgor. Well perfused. NEUROLOGIC: Cranial nerves II through XII grossly intact. No focal or lateralizing signs. PSYCH: Appropriate affect. Alert and oriented to person, place and time. CLINICAL LABS: Reviewed. WBC normal. ASSESSMENT: 1. Gastrojejunal ulcer with obstruction, with perforation 2. Epigastric abdominal pain 3. Chronic pain syndrome 4. Intractable nausea and vomiting PLAN: 1. Continue n.p.o. status except ice chips at this time. 2. Will likely pursue liquid diet following additional studies. 3. Will obtain swallow study. 4. Inpatient hospitalization continued for perforated gastrojejunal ulcer Dictation was produced using [employer] dictation software. Please excuse any grammatical, word or spelling errors. Objective - Vital Signs Vital signs: Vital Signs Temp 98.4 F 02/24/25 07:36 Pulse 75 02/24/25 07:36 Resp 18 02/24/25 07:36 BP 110/65 02/24/25 07:36 Pulse Ox 95 02/24/25 07:36 FiO2 Intake & Output 02/23/25 02/24/25 02/24/25 18:59 06:59 18:59 Intake Total 1000 Output Total 320 Balance 680 Weight 57.606 kg Intake: IV 1000 Output: Urine 300 Estimated Blood Loss 20 Other: Voiding Method Toilet # Voids 1 # Bowel Movements 0 - Labs CBC & Chem 7: 02/24/25 03:43 02/24/25 03:43 Labs: Abnormal Lab Results - Last 24 Hours (Table) 02/24/25 02/24/25 Range/Units 03:43 03:43 RBC 3.76 L (4.10-5.20) X 10*6/uL Hgb 10.8 L (12.0-15.0) g/dL Hct 34.6 L (37.2-46.3) % MCHC 31.2 L (32.0-37.0) g/dL Neutrophils # 7.92 H (1.80-7.70) X 10*3/uL Eosinophils # 0 L (0.04-0.35) X 10*3/uL BUN 8.5 L (9.0-27.0) mg/dL Calcium 8.6 L (8.7-10.3) mg/dL
[2025-02-24] MEDS: MAGNESIUM SULFATE-D5W PMX 1 GM in DEXTROSE/WATER 1 100ML.BAG IVPB SCH (12:35)
[2025-02-24 12:42] VITALS: BMI 23.2
--- NOTE | 2025-02-24 14:53 | FL ---
EXAMINATION TYPE: FL UGI DATE OF EXAM: 02/24/2025 COMPARISON: Outside CT February 19, 2025 CLINICAL INDICATION: Female, 59 years old with history of Post Op Bariatric Surgery; [facility]LY [facility], patient had gastrectomy yesterday for gastric ulcers after gastric bypass surgery years ago TECHNIQUE: A single contrast UGI study is performed utilizing 50 cc of Isovue-370. A total of 51 se conds of fluoroscopic time was utilized during procedure and 68 images obtained. Total dose area prod uct (DAP) in uGy*m?, mGy*cm? (or similar): 1074.04. FINDINGS: The esophagus shows adequate motility and emptying into the stomach. There is direct anastomosis of d istal esophagus to small bowel loop with small hiatal hernia present. No contrast extravasation to vital ggest leak is noted. No significant delay or obstruction seen. Surgical sutures of the gastric region are identified. Cholecystectomy clips incidentally noted. Patient does not show increased symptoms o f nausea or vomiting. IMPRESSION: No leak or obstruction status post total gastrectomy surgical change one day earlier. [facility], , 02/24/2025 2:50 PM
--- NOTE | 2025-02-24 19:44 | P.PN ---
Progress Note - Text Progress Note Date: 02/24/25 Patient reassessed this evening. Results of upper GI demonstrates no leak reviewed with patient. Patient has had 4 confirmatory test of no leaks. Patient reports pain very well-controlled. She is comfortable. Given high risk procedure, continue n.p.o. status today. Will avoid sharp edge medications that are cut. Crushed medications discussed. Prolonged liquid diet for at least 14 days / 2 weeks reviewed given recent perforated ulcer. Overall, shared decision making performed. Will continue n.p.o. status today. Will reassess with start of liquid diet with adjustment of medications were already performed.
[2025-02-24 21:26] LABS: Glucose,Whole Blood 83 mg/dL (70-110)
[2025-02-25 08:14] LABS: Anion Gap 11.40 mmol/L (4.00-12.00); Blood Urea Nitrogen 6.4 mg/dL (9.0-27.0); Calcium 8.5 mg/dL (8.7-10.3); Carbon Dioxide 25.6 mmol/L (21.6-31.8); Chloride 105 mmol/L (96-109); Magnesium 2.1 mg/dL (1.5-2.4); Potassium 4.1 mmol/L (3.5-5.5); Sodium 142 mmol/L (135-145)
[2025-02-25 08:15] LABS: Basophils # (A) 0.06 X 10*3/uL (0.00-0.10); Basophils % (A) 0.7 %; Eosinophils # (A) 0.19 X 10*3/uL (0.04-0.35); Eosinophils % (A) 2.3 %; HCT 35.8 % (37.2-46.3); HGB 11.5 g/dL (12.0-15.0); Immature Grans, Automated 0.50 %; Lymphocytes # (A) 1.88 X 10*3/uL (0.90-5.00); Lymphocytes % (A) 22.9 %; MCH 29.6 pg (27.0-32.0); MCHC 32.1 g/dL (32.0-37.0); MCV 92.3 FL (80.0-97.0); Monocytes # (A) 0.58 X 10*3/uL (0.20-1.00); Monocytes % (A) 7.1 %; NRBC Per 100 WBC 0 X 10*3/uL (0.00-0.01); Neutrophils # (A) 5.46 X 10*3/uL (1.80-7.70); Neutrophils % (A) 66.5 %; Platelet Count 429 X 10*3/uL (140-440); RBC 3.88 X 10*6/uL (4.10-5.20); RDW 13.2 % (11.5-14.5); WBC 8.21 X 10*3/uL (4.50-10.00)
--- NOTE | 2025-02-25 09:59 | P.PN ---
Progress Note - Text Progress Note Date: 02/25/25 Notified pain team regarding consultation. 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 Due to patient's type of surgery and liquid diet only for 2 weeks, alternative pain management with easily dissolving pill or pain patch discussed with pain team. Again patient to avoid taking pills for the next 2 weeks due to high risk surgery
--- NOTE | 2025-02-25 12:45 | P.PAINPG ---
Objective - Vital Signs Vital signs: Vital Signs Temp 98.0 F 02/25/25 09:00 Pulse 67 02/25/25 09:00 Resp 17 02/25/25 09:00 BP 156/86 02/25/25 09:00 Pulse Ox 94 L 02/25/25 09:00 FiO2 Intake & Output 02/24/25 02/25/25 02/25/25 18:59 06:59 18:59 Output Total 950 800 800 Balance -950 -800 -800 Weight 57.606 kg Output: Urine 950 800 800 Other: Voiding Method Toilet - Labs CBC & Chem 7: 02/25/25 03:44 02/25/25 03:44 Labs: Abnormal Lab Results - Last 24 Hours (Table) 02/25/25 02/25/25 Range/Units 03:44 03:44 RBC 3.88 L (4.10-5.20) X 10*6/uL Hgb 11.5 L (12.0-15.0) g/dL Hct 35.8 L (37.2-46.3) % MPV 9.1 L (9.5-12.2) FL BUN 6.4 L (9.0-27.0) mg/dL Calcium 8.5 L (8.7-10.3) mg/dL PQRS Measure Charge Sheet Comment: HISTORY OF PRESENT ILLNESS: A 59 yr old inpatient female as a referral from Dr Stewart presents today w severe abd pain secondary to perforated ulcer repair & lysis of adhesions day 2 for evaluation. Pt states pain level is provoked at 9-10 /10 in intensity, constant, localized in the abdomen, predominantly axial, gnawing in character without shooting pain. Pain has no provocation. Pain is alleviated by medications, repositioning and rest . PMH: OA, Angina, COPD, Eye Disorder, Fibromyalgia, GERD, GI Bleed, HTN, Hypothyroidism, HH, Glaucoma, MDD/ Anxiety PSH: Gastrojejunal Perforation w Repair & lysis of adhesions (02/23/25), Gastric Sleeve (2016), Albert-en-Y (2018), Breast Reduction, Cholecystectomy, L CTR, Uterine Ablation, Colonoscopies/ EGDs SH: Former tobacco user, No ETOH use, No illicit drug use FH: Mo- COPD. Fa- age 22 in plane crash. All: See list Medications include Fentanyl 500mgIV protocol, Dilaudid 1mg IVP q4h prn REVIEW OF ORGAN SYSTEMS: CONSTITUTIONAL: No fevers or chills. No recent weight loss. NEUROLOGICAL: + numbness and tingling along the distal extremities. No seizure disorders or headaches. MUSCULOSKELETAL: + pain PSYCHIATRIC: Denies current depression or suicidal thoughts. Physical Examinations : Constitutional : Cooperative , not in acute distress . Neurologic : Cranial nerve II to XII intact. No focal neurological deficits. Psychiatric : alert & oriented x 3. Matching mood & appropriate affect. Judgment & insight intact. Musculoskeletal : +Incisional scar intact Cervical Spine Motor strength in the deltoid and biceps: Normal right side. Normal Left side Motor strength biceps and the wrist extensors: Normal right side . Normal left side Motor strength in the triceps muscle: Normal right side. Normal left side Deep tendon reflexes: Normal at the biceps. Normal at Brachioradialis. Normal at triceps Vertebral body tenderness to deep palpation over Cervical facet loading test: positive b ilaterally Spurling test: positive bilaterally Neck distraction test: positive bilaterally Ophelia sign: positive bilaterally Lumbar spine Motor strength lower extremities ,thigh and legs 5/5 Right side , 5/5 Left side Deep tendon reflexes : Normal Knee Jerk. Normal Ankle Jerk Vertebral body tenderness over Mcdaniel Test positive Lumbar facet Loading Test: positive Right / positive Left Range of motion of the lumbar spine Flexion 30 degrees, extension 10 degrees Straight Leg Raise test: Left/ Right positive at degrees Alka test: positive right / positive left. Severe tenderness over the Sacroiliac joint on the Right / Left sides Gaenslen test: positive bilaterally Seated flexion test: positive bilaterally. Sacral spine : Severe tenderness over the Sacroiliac joint: right side / left side Range of motion: Flexion of the lumbar spine <60 degrees Range of motion: Extension of the lumbar spine <20 degrees Gaenslen's Test positive Alka test: positive right side / left side Thigh Thrust Test Sacral Thrust Test Assessment/ Plan : Perforated Ulcer Repair, Lysis of Adhesions day 2 Recommendation of medication management. No oral meds x 2 wks. Pt has tolerated Fentanyl while hospitalized. E-script Fentanyl 25mcg/hr q72 #5. May follow up in the pain clinic in an outpatient basis. All questions answered. I have spent greater than 30 minutes on patient care today. Dr Cruz was available by phone for the evaluation of this patient. 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 Pain Comment: patient is resting in bed PQRS Narrative: Smoking Status Former smoker Blood Pressure [Right Arm] 156/86 Blood Pressure 123/77 Pain Intensity [Abdomen] 5 Pain Intensity 4 Pain Scale Used [Abdomen] Numeric (1 - 10) Pain Scale Used Numeric (1 - 10) Scale Used Numeric (1 - 10) Home Medications: Ambulatory Orders ALPRAZolam [ALPRAZolam XR] 0.5 mg PO BID PRN 04/13/22 Levothyroxine Sodium [Synthroid] 37.5 mcg PO HS 04/13/22 Fluticasone/Umeclidin/Vilanter [Trelegy Ellipta 100-62.5-25] 1 puff INHALATION RT-DAILY 05/02/22 Albuterol Sulfate [Proair Hfa] 2 puff INHALATION RT-QID PRN 11/27/23 Olmesartan [Benicar] 20 mg PO DAILY 01/09/24 Gabapentin 300 mg PO HS 12/17/24 Omeprazole [PriLOSEC] 40 mg PO BID #60 cap 12/24/24 Sucralfate [Carafate] 1 gm PO BID #120 tablet 12/24/24 Calcium(Unknown Dose) 1 tab PO DAILY 01/05/25 SUMAtriptan succinate [Imitrex] 100 mg PO DAILY PRN 01/05/25 Sertraline [Zoloft] 50 mg PO DAILY 01/05/25 Prochlorperazine [Compazine] 10 mg PO Q6H PRN #20 tab 01/07/25 Hydrocodone/Apap 5/300mg 1 tab PO Q6H PRN 02/19/25 methocarbamoL [Robaxin-750] 750 mg PO Q4H PRN 02/19/25 fentaNYL 25MCG/HR PATCH [Duragesic 25MCG/HR] 25 mcg TRANSDERM Q72H 15 Days #5 patch 02/25/25 Controlled Substance Measures - Controlled Substance Measures Is patient prescribed a controlled substance at discharge?: Yes When asked, does pt state using other controlled substances?: Yes If prescribed controlled substance>3 days was MAPS reviewed?: Yes If Rx opioid, was Start Talking consent form obtained?: Yes If opioid is for acute pain is fill amount 7 days or less?: No Was information provided regarding opioid addiction?: Yes
--- NOTE | 2025-02-26 08:30 | P.PN ---
Subjective Progress Note Date: 02/25/25 CHIEF COMPLAINT: Gastrojejunal ulcer, intractable HISTORY OF PRESENT ILLNESS: The patient is a 59-year-old female transferred from outside institution 02/19/2025 due to intractable abdominal pain and large gastrojejunal ulcer with partial obstruction. She is status post extensive lysis of adhesions with repair of perforated gastrojejunal ulcer, 02/23/2025. She is postop day 2. Consultation for pain management was placed due to limited oral nutrition with liquids. She reports her pain is managed. She is tolerating liquids. ROS: No fevers or chills. No new chest pain. No productive sputum PHYSICAL EXAM: VITAL SIGNS: Reviewed CONSTITUTIONAL: Well developed and in no acute distress. EYES: Conjuctivae without sclera icterus. Extraocular movements grossly intact. HEAD, EARS, NOSE, THROAT: Moist buccal mucosa. Head is atraumatic, normocephalic. Hears conversational speech. No nasal drainage. RESPIRATORY: Non-labored respirations and equal bilateral excursions. CARDIOVASCULAR: Palpable 2+ radial pulses. ABDOMEN: Nondistended. MUSCULOSKELETAL: No gross deformity of the lower extremities noted. No clubbing. No cyanosis. SKIN: Good skin turgor. Well perfused. NEUROLOGIC: Cranial nerves II through XII grossly intact. No focal or lateralizing signs. PSYCH: Appropriate affect. Alert and oriented to person, place and time. CLINICAL LABS: Reviewed. WBC normal. ASSESSMENT: 1. Gastrojejunal ulcer with obstruction, with perforation 2. Epigastric abdominal pain 3. Chronic pain syndrome 4. Intractable nausea and vomiting PLAN: 1. Anticipated discharge diet for full liquid diet. 2. Options for pain management for oral dissolving versus pain patches discussed with patient. 3. Disposition pending pain management including tolerating liquid diet. 4. Antibiotics continued for perforated gastrojejunal ulcer. Dictation was produced using [employer] dictation software. Please excuse any grammatical, word or spelling errors. Objective - Vital Signs Vital signs: Vital Signs Temp 98.0 F 02/25/25 09:00 Pulse 67 02/25/25 09:00 Resp 17 02/25/25 09:00 BP 156/86 02/25/25 09:00 Pulse Ox 94 L 02/25/25 09:00 FiO2 Intake & Output 02/24/25 02/25/25 02/25/25 18:59 06:59 18:59 Output Total 950 800 800 Balance -950 -800 -800 Weight 57.606 kg Output: Urine 950 800 800 Other: Voiding Method Toilet - Labs CBC & Chem 7: 02/25/25 03:44 02/25/25 03:44 Labs: Abnormal Lab Results - Last 24 Hours (Table) 02/25/25 02/25/25 Range/Units 03:44 03:44 RBC 3.88 L (4.10-5.20) X 10*6/uL Hgb 11.5 L (12.0-15.0) g/dL Hct 35.8 L (37.2-46.3) % MPV 9.1 L (9.5-12.2) FL BUN 6.4 L (9.0-27.0) mg/dL Calcium 8.5 L (8.7-10.3) mg/dL
--- NOTE | 2025-02-26 08:48 | P.PN ---
Subjective Progress Note Date: 02/26/25 CHIEF COMPLAINT: Gastrojejunal ulcer, intractable HISTORY OF PRESENT ILLNESS: The patient is a 59-year-old female transferred from outside institution 02/19/2025 due to intractable abdominal pain and large gastrojejunal ulcer with partial obstruction. She is status post extensive lysis of adhesions with repair of perforated gastrojejunal ulcer, 02/23/2025. She is postop day 3. Patient had been seen by pain management yesterday. Recommendations for fentanyl patch 25 mcg every 72 hours was noted. Patient reports nausea. No acute abdominal pain. She is requesting stool softeners. She is on full liquid diet. ROS: Low-grade fever 99.7. No new chest pain. No productive sputum PHYSICAL EXAM: VITAL SIGNS: Reviewed CONSTITUTIONAL: Well developed and in no acute distress. EYES: Conjuctivae without sclera icterus. Extraocular movements grossly intact. HEAD, EARS, NOSE, THROAT: Moist buccal mucosa. Head is atraumatic, normocephalic. Hears conversational speech. No nasal drainage. RESPIRATORY: Non-labored respirations and equal bilateral excursions. CARDIOVASCULAR: Palpable 2+ radial pulses. ABDOMEN: Nondistended. Incisions clean dry and intact. MUSCULOSKELETAL: No gross deformity of the lower extremities noted. No clubbing. No cyanosis. SKIN: Good skin turgor. Well perfused. NEUROLOGIC: Cranial nerves II through XII grossly intact. No focal or lateralizing signs. PSYCH: Appropriate affect. Alert and oriented to person, place and time. CLINICAL LABS: Reviewed. Labs pending. ASSESSMENT: 1. Gastrojejunal ulcer with obstruction, with perforation 2. Epigastric abdominal pain 3. Chronic pain syndrome 4. Intractable nausea and vomiting PLAN: 1. Will obtain CBC CMP amylase lipase. 2. Patient discussed very high risk of leak. Optimal nutrition including antibiotics described. 3. Will start fentanyl patch while inpatient to identify pain management goal needs. 4. Disposition pending pain management including tolerating diet. Dictation was produced using [employer] dictation software. Please excuse any grammatical, word or spelling errors. Objective - Vital Signs Vital signs: Vital Signs Temp 99.7 F H 02/26/25 07:25 Pulse 107 H 02/26/25 07:25 Resp 17 02/26/25 07:25 BP 142/95 02/26/25 07:25 Pulse Ox 95 02/26/25 07:25 FiO2 Intake & Output 02/25/25 02/26/25 02/26/25 18:59 06:59 18:59 Intake Total 700 Output Total 800 Balance -100 Intake: Oral 700 Output: Urine 800 Other: # Voids 3 - Labs CBC & Chem 7: 02/25/25 03:44 02/25/25 03:44
[2025-02-26 09:23] LABS: Basophils # (A) 0.04 10*3/uL (0.00-0.10); Basophils % (A) 0.5 %; Eosinophils # (A) 0.10 10*3/uL (0.04-0.35); Eosinophils % (A) 1.3 %; HCT 35.3 % (37.2-46.3); HGB 11.7 g/dL (12.0-15.0); Lymphocytes # (A) 1.26 10*3/uL (0.90-5.00); Lymphocytes % (A) 16.8 %; MCH 29.8 pg (27.0-32.0); MCHC 33.1 g/dL (32.0-37.0); MCV 89.8 fL (80.0-97.0); Monocytes # (A) 0.51 10*3/uL (0.20-1.00); Monocytes % (A) 6.8 %; Neutrophils # (A) 5.57 10*3/uL (1.80-7.70); Neutrophils % (A) 74.1 %; Platelet Count 366 10*3/uL (140-440); RBC 3.93 10*6/uL (4.10-5.20); RDW 13.1 % (11.5-14.5); WBC 7.52 10*3/uL (4.50-10.00)
[2025-02-26 09:41] LABS: ALT <6 U/L (4-34); AST 21 U/L (14-36); African American GFR (CKD) >90 (>60 ml/min/1.73 sqM); Albumin 3.5 g/dL (3.5-5.0); Albumin/Globulin Ratio 1.6; Alkaline Phosphatase 76 U/L (38-126); Amylase 36 U/L (30-110); Anion Gap 16 mmol/L; Blood Urea Nitrogen 6 mg/dL (7-17); Calcium 8.8 mg/dL (8.4-10.2); Carbon Dioxide 16 mmol/L (22-30); Chloride 105 mmol/L (98-107); Globulin 2.2 g/dL; Glucose 87 mg/dL (74-99); Lipase 64 U/L (23-300); Non-African American GFR(CKD) 89 (>60 ml/min/1.73 sqM); Potassium 3.7 mmol/L (3.5-5.1); Sodium 137 mmol/L (137-145); Total Protein 5.7 g/dL (6.3-8.2)
[2025-02-26] MEDS: ACETAMINOPHEN IV (For NPO) 1,000 MG in EMPTY BAG 1 BAG IVPB SCH (10:05)
--- NOTE | 2025-02-26 15:35 | XR ---
EXAMINATION TYPE: XR chest 2V DATE OF EXAM: 02/26/2025 3:30 PM COMPARISON: Chest radiographs from 01/05/2025, CTA chest 01/05/2025 TECHNIQUE: XR chest 2V Frontal and lateral views of the chest. CLINICAL INDICATION:Female, 59 years old with history of dyspnea; FINDINGS: Lungs/Pleura: There is no evidence of pleural effusion, focal consolidation, or pneumothorax. Left b asilar linear scarring demonstrated. Pulmonary vascularity: Unremarkable. Heart/mediastinum: Cardiomediastinal silhouette is unremarkable. Musculoskeletal: No acute osseous pathology. Other: Cholecystectomy clips in right upper quadrant. Enteric contrast demonstrate within the left up per quadrant colon from recent upper GI. IMPRESSION: No acute cardiopulmonary disease/process. [facility], , 02/26/2025 3:33 PM
[2025-02-26] MEDS: SUCRALFATE 1 GM TAB PO SCH (17:34)
--- NOTE | 2025-02-26 21:40 | P.PN ---
Progress Note - Text Progress Note Date: 02/26/25 Patient reevaluated tonight. She reports tolerating suspension medications. 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 No reports of any gastric pain. Results of chest x-ray reviewed with her demonstrates no acute abnormalities. Patient denies any increased epigastric or atypical chest pain. She is tolerating diet. Reviewed with patient plan for discharge with full liquid diet and liquid or crushed medications only for 2 weeks. Close outpatient follow-up described. 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
[2025-02-27 08:46] VITALS: RESP 17
--- NOTE | 2025-02-27 11:34 | P.PN ---
Subjective Progress Note Date: 02/27/25 CHIEF COMPLAINT: Gastrojejunal ulcer, intractable HISTORY OF PRESENT ILLNESS: The patient is a 59-year-old female transferred from outside institution 02/19/2025 due to intractable abdominal pain and large gastrojejunal ulcer with partial obstruction. She is status post extensive lysis of adhesions with repair of perforated gastrojejunal ulcer, 02/23/2025. She is postop day 4. Pain is well-controlled. She reports mild nausea. She had a bowel movement. Medication review by pharmacist was performed. ROS: No fevers or chills. No new chest pain. No productive sputum PHYSICAL EXAM: VITAL SIGNS: Reviewed CONSTITUTIONAL: Well developed and in no acute distress. EYES: Conjuctivae without sclera icterus. Extraocular movements grossly intact. HEAD, EARS, NOSE, THROAT: Moist buccal mucosa. Head is atraumatic, normocephalic. Hears conversational speech. No nasal drainage. RESPIRATORY: Non-labored respirations and equal bilateral excursions. CARDIOVASCULAR: Palpable 2+ radial pulses. ABDOMEN: Nondistended. Incisions clean dry and intact. MUSCULOSKELETAL: No gross deformity of the lower extremities noted. No clubbing. No cyanosis. SKIN: Good skin turgor. Well perfused. NEUROLOGIC: Cranial nerves II through XII grossly intact. No focal or lateralizing signs. PSYCH: Appropriate affect. Alert and oriented to person, place and time. CLINICAL LABS: No new labs today. ASSESSMENT: 1. Gastrojejunal ulcer with obstruction, with perforation 2. Epigastric abdominal pain 3. Chronic pain syndrome 4. Intractable nausea and vomiting PLAN: 1. Medication review for crushable versus alternative for medications were reviewed and placed in patient's record. 2. Will give magnesium infusion prior to discharge. 3. Close outpatient management performed. 4. Prior authorization notified to pain clinic team regarding fentanyl patches. Dictation was produced using [employer] dictation software. Please excuse any grammatical, word or spelling errors. Objective - Vital Signs Vital signs: Vital Signs Temp 98.8 F 02/27/25 07:06 Pulse 73 02/27/25 07:06 Resp 17 02/27/25 07:06 BP 135/85 02/27/25 07:06 Pulse Ox 96 02/27/25 08:18 FiO2 21 02/27/25 08:18 Intake & Output 02/26/25 02/27/25 02/27/25 18:59 06:59 18:59 Intake Total 650 Balance 650 Intake: Oral 650 Other: Voiding Method Toilet - Labs CBC & Chem 7: 02/26/25 09:07 02/26/25 09:07
[2025-02-27] MEDS: MAGNESIUM SULFATE-D5W PMX 1 GM in DEXTROSE/WATER 1 100ML.BAG IVPB SCH (12:57)
[2025-02-27 16:06] VITALS: BP 133/79; PULSE 100; TEMP 98.6
--- NOTE | 2025-02-28 13:36 | P.PN ---
Progress Note - Text Progress Note Date: 02/28/25 1325 - 1335: Patient contacted at home. She reports obtaining omeprazole capsules versus tablets from the pharmacy. Patient asked to open up the capsule and take it with pudding or yogurt including drinking fluids such as water protein shakes. Patient reported nausea with sitting up. Patient asked to sit in chair versus lay down as that may precipitate vertigo and nausea. Patient asked to stop her blood pressure medication especially with nausea with sitting up. Close outpatient follow-up including telehealth described in the interim.
--- NOTE | 2025-02-28 13:38 | P.DS ---
Providers Date of admission: 02/19/25 18:37 Expected date of discharge: 02/27/25 Attending physician: Nu Stewart Primary care physician: [facility] Course: POSTOPERATIVE DIAGNOSES: 1. Acute on chronic gastrojejunal ulcer with perforation 2. Perigastric perihepatic intra-abdominal adhesions 3. Status post gastric bypass. 4. History of perforated gastrojejunal ulcer 5. Fibromyalgia 6. Depressive disorder 7. Chronic obstructive pulmonary disease 8. Hiatal hernia 9. Migraines, chronic 10. Hypothyroidism 11. Generalized anxiety disorder 12. Acute angle glaucoma and reaction from scopolamine 13. Previous history of morbid obesity due to excess calories 14. Body mass index reduced from 36.8 down to 23.8 15. Gastric stenosis 16. Hypomagnesia 17. Chronic pain syndrome COURSE: The patient is a 59-year-old female transferred from outside institution 02/19/2025 due to intractable abdominal pain and large gastrojejunal ulcer with partial obstruction. She underwent surgical intervention for total gastrectomy with esophagojejunostomy however due to findings of perforated gastrojejunal ulcer, surgery was changed to extensive lysis of adhesions with repair of perforated gastrojejunal ulcer, 02/23/2025. Patient was monitored with IV antibiotics including pain control with fentanyl [employer] switched over to fentanyl patches. Multiple diagnostic studies including intraoperative leak test x 3 and upper GI demonstrated no leaks. Patient prior to discharge was hemodynamic stable, afebrile, tolerating diet, pain controlled. Extensive medical reconciliation was performed including adjustment of medications to crushable versus liquid form. Close outpatient follow-up via telehealth also reviewed with her as well. Procedures: OPERATION: 1. Robotic assisted da Sunday Xi laparoscopic extensive lysis of adhesions over 2 hours 2. Robotic assisted da Sunday Xi laparoscopic repair of perforated gastrojejunal ulcer, 2 cm 3. Intraoperative esophagogastrojejunoscopy. 4. ABORTED Robotic assisted da Sunday Xi laparoscopic gastrectomy with esophagojejunostomy ANESTHESIA: General with local ESTIMATED BLOOD LOSS: 10 mL SPECIMENS REMOVED: None. COMPLICATIONS: NONE. FINDINGS: 1. Severe perihepatic and perigastric adhesions requiring extensive lysis of adhesions over 2 hours 2. Gastric pouch with with anterior wall gastrojejunal perforation 2 cm repaired 3. Moderate inflammation along the hiatus with loss of tissue plane prohibiting transition of case of gastrectomy with esophagojejunostomy 4. Combination of methylene blue test, 60 cc negative for leak after repair 5. Air insufflation test, 60 cc negative for leak after repair 6. Initial upper endoscopy performed demonstrating gastric stenosis involving gastric pouch, 12 mm Patient Condition at Discharge: Stable Plan - Discharge Summary Discharge Rx Participant: Yes New Discharge Prescriptions: New Simethicone 40 mg/0.6 ml Drops [Mylicon Drops] 40 mg PO Q6HR ml Ondansetron Odt [Zofran Odt] 8 mg PO Q8HR #20 tab Omeprazole 40 mg PO BID #120 tab Amoxic-Pot Clav 600-42.9MG/5Ml [Augmentin 600-42.9 mg/5 ml Liquid] 10 ml PO Q12H #250 ml fentaNYL 25MCG/HR PATCH [Duragesic 25MCG/HR] 25 mcg TRANSDERM Q72H 15 Days #5 patch Gabapentin [Neurontin Oral Solution] 300 mg PO DAILY 3 Days #300 ml Continue Albuterol Sulfate [Proair Hfa] 2 puff INHALATION RT-QID PRN PRN Reason: Shortness Of Breath Olmesartan [Benicar] 20 mg PO DAILY Sertraline [Zoloft] 50 mg PO DAILY SUMAtriptan succinate [Imitrex] 100 mg PO DAILY PRN PRN Reason: Migraine Headache Prochlorperazine [Compazine] 10 mg PO Q6H PRN #20 tab PRN Reason: Nausea Hydrocodone/Apap 5/300mg 1 tab PO Q6H PRN PRN Reason: Pain Levothyroxine Sodium [Synthroid] 37.5 mcg PO HS Fluticasone/Umeclidin/Vilanter [Trelegy Ellipta 100-62.5-25] 1 puff INHALATION RT-DAILY Sucralfate [Carafate] 1 gm PO BID #120 tablet methocarbamoL [Robaxin-750] 750 mg PO Q4H PRN PRN Reason: Muscle Pain Discontinued Gabapentin 300 mg PO HS Omeprazole [PriLOSEC] 40 mg PO BID #60 cap ALPRAZolam [ALPRAZolam XR] 0.5 mg PO BID PRN PRN Reason: Anxiety Calcium(Unknown Dose) 1 tab PO DAILY Discharge Medication List Levothyroxine Sodium [Synthroid] 37.5 mcg PO HS 04/13/22 [History] Fluticasone/Umeclidin/Vilanter [Trelegy Ellipta 100-62.5-25] 1 puff INHALATION RT-DAILY 05/02/22 [History] Albuterol Sulfate [Proair Hfa] 2 puff INHALATION RT-QID PRN 11/27/23 [History] Olmesartan [Benicar] 20 mg PO DAILY 01/09/24 [History] Sucralfate [Carafate] 1 gm PO BID #120 tablet 12/24/24 [Rx] SUMAtriptan succinate [Imitrex] 100 mg PO DAILY PRN 01/05/25 [History] Sertraline [Zoloft] 50 mg PO DAILY 01/05/25 [History] Prochlorperazine [Compazine] 10 mg PO Q6H PRN #20 tab 01/07/25 [Rx] Hydrocodone/Apap 5/300mg 1 tab PO Q6H PRN 02/19/25 [History] methocarbamoL [Robaxin-750] 750 mg PO Q4H PRN 02/19/25 [History] fentaNYL 25MCG/HR PATCH [Duragesic 25MCG/HR] 25 mcg TRANSDERM Q72H 15 Days #5 patch 02/25/25 [Rx] Amoxic-Pot Clav 600-42.9MG/5Ml [Augmentin 600-42.9 mg/5 ml Liquid] 10 ml PO Q12H #250 ml 02/27/25 [Rx] Gabapentin [Neurontin Oral Solution] 300 mg PO DAILY 3 Days #300 ml 02/27/25 [Rx] Omeprazole 40 mg PO BID #120 tab 02/27/25 [Rx] Ondansetron Odt [Zofran Odt] 8 mg PO Q8HR #20 tab 02/27/25 [Rx] Simethicone 40 mg/0.6 ml Drops [Mylicon Drops] 40 mg PO Q6HR ml 02/27/25 [Rx] [place] [facility](s[place]Ref[place]04/25 3:00 pm Adam Castaneda DO [Primary Care Provider] - 1-2 days (Office is not answering at time of discharge. Please call for follow-up appointment.) Patient Instructions/Handouts: Peptic Ulcer (DC) Activity/Diet/Wound Care/Special Instructions: NO SOLID PILLS OR CUT PILLS UNTIL 03/09/25 Requested pharmacist review to evaluate home home medications for liquid form or crushable tablets, no cut tabs or granules. Recommend verifying with outpatient pharmacy for med availability & insurance coverage. Xanax Er 0.5mg po bid prn * liquid form & ODT tablets available, IR tablets also crushable. Recommend change to IR 0.25mg QID PRN if possible. Calcium PO * liquid form available OTC, tablets crushable/chewable Gabapentin 300mg QHS * liquid form available, IR tablets crushable Dixon 5/300 1 tab po q6h PRN * liquid form available, IR tablets crushable Levothyroxine 37.5mg po qhs * liquid form available, tablet crushable Methocarbamol 750mg po q4h prn * tablet crushable Olmesartan 20mg po daily * tablet crushable Omeprazole 40mg po bid * ODT available Prochlorperazine 10mg po q6h * tablet crushable Sertraline * tablet crushable, liquid form available Carafate * tablet crushable Imitrex * tablet crushable, SQ available. May also change to alternate similar med with ODT availability ie Maxalt GEAR NICKER Laney Gibbs, KodyD Discharge Disposition: HOME SELF-CARE
--- NOTE | 2025-03-01 10:10 | P.PN ---
Progress Note - Text Progress Note Date: 03/01/25 1009 -1010 : Patient contacted at home. Patient did well with open and omeprazole 40 mg capsules with yogurt. No reports of nausea or abdominal pain. Patient advised to obtain 90 g of protein daily for optimal recovery. Total of 2 weeks 03/05/2025 of liquid diet until transition to soft foods
--- NOTE | 2025-03-02 15:11 | P.PN ---
Progress Note - Text Progress Note Date: 03/02/25 [id number]: Voicemail message left. Notified by bariatric center patient complaining of increased nausea. Left message to take antinausea medications. May need magnesium infusion for chronic nausea.
--- NOTE | 2025-03-03 20:07 | P.PN ---
Progress Note - Text Progress Note Date: 03/03/252001 - 2005: She is doing the same. She reports above the navel abdominal pain that started yesterday. Get swallow study advised to assess for leaks. She reports nausea with Zofran is helping. May benefit from magnesium infusion. Will review images from her surgery in bariatric clinic.
== END 2025-02-27 18:52 | disposition home or self-care (01) | DRG 327 ==
LOC: EC 15:28 → 4SSUR 18:37
PROVIDERS: ADMIT Surgery Plastic and Reconstructive Surgery; ATTEND Surgery Plastic and Reconstructive Surgery
PROC: 0DN64ZZ Release Stomach, Percutaneous Endoscopic Approach (ICD-10-PCS; principal; 2025-02-23 10:40)
PROC: 0DNA4ZZ Release Jejunum, Percutaneous Endoscopic Approach (ICD-10-PCS; principal; 2025-02-23 10:40)
PROC: 0DQ64ZZ Repair Stomach, Percutaneous Endoscopic Approach (ICD-10-PCS; principal; 2025-02-23 10:40)
PROC: 8E0W4CZ Robotic Assisted Procedure of Trunk Region, Percutaneous Endoscopic Approach (ICD-10-PCS; principal; 2025-02-23 10:40)
DX: K28.1 Acute gastrojejunal ulcer with perforation (principal); K56.690 Other partial intestinal obstruction; D64.9 Anemia, unspecified; E11.9 Type 2 diabetes mellitus without complications; E03.9 Hypothyroidism, unspecified; E83.42 Hypomagnesemia; J44.9 Chronic obstructive pulmonary disease, unspecified; K28.5 Chronic or unspecified gastrojejunal ulcer with perforation; F32.9 Major depressive disorder, single episode, unspecified; I10 Essential (primary) hypertension; F41.1 Generalized anxiety disorder; K31.89 Other diseases of stomach and duodenum; G89.4 Chronic pain syndrome; H40.60X0 Glaucoma secondary to drugs, unspecified eye, stage unspecified; T44.3X5A Adverse effect of other parasympatholytics [anticholinergics and antimuscarinics] and spasmolytics, initial encounter; K21.9 Gastro-esophageal reflux disease without esophagitis; K44.9 Diaphragmatic hernia without obstruction or gangrene; K66.0 Peritoneal adhesions (postprocedural) (postinfection); M79.7 Fibromyalgia; Z98.84 Bariatric surgery status; Z90.49 Acquired absence of other specified parts of digestive tract; Z86.69 Personal history of other diseases of the nervous system and sense organs; Z86.39 Personal history of other endocrine, nutritional and metabolic disease; Z87.891 Personal history of nicotine dependence; Z79.890 Hormone replacement therapy; Z79.899 Other long term (current) drug therapy; Z86.0100 Personal history of colon polyps, unspecified
CPT/HCPCS: 36410; 36415; 64468; 71046; 74240; 76937; 80048; 80051; 80053; 80307; 82150; 82310; 82565; 83690; 83735; 84100; 84484; 84520; 85025; 86850; 86900; 86901; 94640; 94760; 96361; 96374; 96375; 96376; 99285

== ENCOUNTER → 2025-03-04 | Outpatient (CLI) | payer OTHER ==
[2025-03-04 14:37] VITALS: BP 131/85; PULSE 79; RESP 16; TEMP 97.8; BMI 21.2
--- NOTE | 2025-03-04 15:20 | P.BASOAP ---
Subjective Progress Note Date: 03/04/25 Has severe nausea due to severe dehydration. She is not taking all of her medications. No inhalers are being. Arrange for IV fluids and magnesium. She lost 11 pounds. Images from surgery reviewed again. Swallow study shows no leak. Nurse coordinator at bedside. Images of her surgery were reviewed in detail. Recommend IV fluid hydration as dehydration exacerbates nausea. Also recommend milk magnesium 2 g infusion. Ideally fluid infusion and magnesium fusion weekly advised. Recommend full bariatric labs as the last draw was 3 years ago 2021. Thiamine deficiency may also exacerbate chronic nausea Objective - Vital Signs Vital signs: Vital Signs Temp 97.8 F 03/04/25 14:34 Pulse 79 03/04/25 14:34 Resp 16 03/04/25 14:34 BP 131/85 03/04/25 14:34 Pulse Ox FiO2 Intake & Output 03/03/25 03/04/25 03/04/25 18:59 06:59 18:59 Weight 52.617 kg Assessment/Plan Plan: Date: 03/04/25 Initial Weight: 91.308 kg Initial BMI: 36.8 Current Weight: 52.617 kg Current BMI: 21.2 Type of Surgery: Albert-en-Y Gastric Bypass Total Volume in Band: Previous Volume: Volume Removed: Volume Added: Band Size:
== END ==
LOC: BARWHC3 14:01
PROVIDERS: ATTEND Surgery Plastic and Reconstructive Surgery
DX: E66.01 Morbid (severe) obesity due to excess calories (principal); E86.0 Dehydration; R11.0 Nausea; F12.90 Cannabis use, unspecified, uncomplicated; Z68.21 Body mass index [BMI] 21.0-21.9, adult; Z87.891 Personal history of nicotine dependence; Z91.040 Latex allergy status; Z88.8 Allergy status to other drugs, medicaments and biological substances; Z88.6 Allergy status to analgesic agent
CPT/HCPCS: 99211

== ENCOUNTER → 2025-03-04 | Outpatient (CLI) | payer OTHER ==
--- NOTE | 2025-03-04 14:26 | FL ---
EXAMINATION TYPE: FL barium swallow DATE OF EXAM: 03/04/2025 LIMITED UGI-ESOPHAGRAM: CLINICAL HISTORY: Dysphasia COMPARISON: 02/24/2025 TECHNIQUE: Limited esophagram is performed utilizing 20 oz of Omnipaque 350. A total of 43 seconds o f fluoroscopic time was utilized during procedure. FINDINGS: The patient swallowed contrast without difficulty or delay. Esophageal peristalsis and mo tility are within normal limits. There is good flow of contrast along the diaphragmatic hiatus into t he stomach. There Is no evidence of contrast extravasation to suggest leak. Postoperative changes of Albert-en-Y gastrectomy noted. IMPRESSION: No evidence of leak or significant obstruction status post Albert-en-Y gastrectomy. Mild ed ramo at the surgical site suggested without obstruction. [facility], , 03/04/2025 2:24 PM
== END | disposition home or self-care (01) ==
LOC: RADXRMAIN 13:46
PROVIDERS: ATTEND Surgery Plastic and Reconstructive Surgery
DX: R13.10 Dysphagia, unspecified (principal)
CPT/HCPCS: 74220

== ENCOUNTER → 2025-03-09 | Outpatient (CLI) | payer OTHER ==
[2025-03-09 11:28] VITALS: BP 123/85; PULSE 71; RESP 19
--- NOTE | 2025-03-09 17:30 | P.PAINPG ---
Objective - Vital Signs Vital signs: Intake & Output 03/08/25 03/09/25 03/09/25 18:59 06:59 18:59 Weight 52.163 kg PQRS Measure Charge Sheet Comment: HISTORY OF PRESENT ILLNESS: A 59 yr old female presents today w severe abd pain secondary to perforated ulcer repair & lysis of adhesions day 8 for evaluation. Pt states pain level is provoked at 8 /10 in intensity, constant, localized in the abdomen, predominantly axial, gnawing in character without shooting pain. Pain has no provocation. Pain is alleviated by medications, repositioning and rest . PMH: OA, Angina, COPD, Eye Disorder, Fibromyalgia, GERD, GI Bleed, HTN, Hypothyroidism, HH, Glaucoma, MDD/ Anxiety PSH: Gastrojejunal Perforation w Repair & lysis of adhesions (02/23/25), Gastric Sleeve (2015), Albert-en-Y (2017), Breast Reduction, Cholecystectomy, L CTR, Uterine Ablation, Colonoscopies/ EGDs SH: Former tobacco user, No ETOH use, No illicit drug use FH: Mo- COPD. Fa- age 22 in plane crash. All: See list Medications include Fentanyl 500mgIV protocol, Dilaudid 1mg IVP q4h prn REVIEW OF ORGAN SYSTEMS: CONSTITUTIONAL: No fevers or chills. No recent weight loss. NEUROLOGICAL: + numbness and tingling along the distal extremities. No seizure disorders or headaches. MUSCULOSKELETAL: + pain PSYCHIATRIC: Denies current depression or suicidal thoughts. Physical Examinations : Constitutional : Cooperative , not in acute distress . Neurologic : Cranial nerve II to XII intact. No focal neurological deficits. Psychiatric : alert & oriented x 3. Matching mood & appropriate affect. Judgment & insight intact. Musculoskeletal : +Incisional scar intact Cervical Spine Motor strength in the deltoid and biceps: Normal right side. Normal Left side Motor strength biceps and the wrist extensors: Normal right side . Normal left side Motor strength in the triceps muscle: Normal right side. Normal left side Deep tendon reflexes: Normal at the biceps. Normal at Brachioradialis. Normal at triceps Vertebral body tenderness to deep palpation over Cervical facet loading test: positive bilaterally Spurling test: positive bilaterally Neck distraction test: positive bilaterally Ophelia sign: positive bilaterally Lumbar spine Motor strength lower extremities ,thigh and legs 5/5 Right side , 5/5 Left side Deep tendon reflexes : Normal Knee Jerk. Normal Ankle Jerk Vertebral body tenderness over Mcdaniel Test positive Lumbar facet Loading Test: positive Right / positive Left Range of motion of the lumbar spine Flexion 30 degrees, extension 10 degrees Straight Leg Raise test: Left/ Right positive at degrees Alka test: positive right / positive left. Severe tenderness over the Sacroiliac joint on the Right / Left sides Gaenslen test: positive bilaterally Seated flexion test: positive bilaterally. Sacral spine : Severe tenderness over the Sacroiliac joint: right side / left side Range of motion: Flexion of the lumbar spine <60 degrees Range of motion: Extension of the lumbar spine <20 degrees Gaenslen's Test positive Alka test: positive right side / left side Thigh Thrust Test Sacral Thrust Test Assessment/ Plan : Perforated Ulcer Repair, Complications from Lysis of Adhesions Recommendation of medication management. Continue Fentanyl 25mcg/hr q72 #10 w RF. Opiate/ narcotic agreement signed 03/09/25. Use, side effects, adverse reactions, safe storage discussed. All questions answered. I have spent greater than 30 minutes on patient care today. Dr Cruz was available by phone for the evaluation of this patient. The time was used to review the medical records including relevant urine studies and Prescription history (MAPs), review of the available imaging, evaluation and examination of the patient, coordination of care with the medical staff and if applicable referring physicians, as well as creation of the medical record - Pain Location Generalized Non-Pharmacological Interventions: Heat Pharmacological Interventions: Medication PQRS Narrative: Smoking Status Former smoker Home Medications: Ambulatory Orders Levothyroxine Sodium [Synthroid] 37.5 mcg PO HS 04/13/22 Albuterol Sulfate [Proair Hfa] 2 puff INHALATION RT-QID PRN 11/27/23 Sucralfate [Carafate] 1 gm PO BID #120 tablet 12/24/24 SUMAtriptan succinate [Imitrex] 100 mg PO DAILY PRN 01/05/25 Hydrocodone/Apap 5/300mg 1 tab PO Q6H PRN 02/19/25 fentaNYL 25MCG/HR PATCH [Duragesic 25MCG/HR] 25 mcg TRANSDERM Q72H 15 Days #5 patch 02/25/25 Amoxic-Pot Clav 600-42.9MG/5Ml [Augmentin 600-42.9 mg/5 ml Liquid] 10 ml PO Q12H #250 ml 02/27/25 Omeprazole 40 mg PO BID #120 tab 02/27/25 Ondansetron Odt [Zofran Odt] 8 mg PO Q8HR #20 tab 02/27/25 Simethicone 40 mg/0.6 ml Drops [Mylicon Drops] 40 mg PO Q6HR ml 02/27/25 Controlled Substance Measures - Controlled Substance Measures Is patient prescribed a controlled substance at discharge?: Yes When asked, does pt state using other controlled substances?: Yes If prescribed controlled substance>3 days was MAPS reviewed?: Yes If Rx opioid, was Start Talking consent form obtained?: Yes Was information provided regarding opioid addiction?: Yes
== END ==
LOC: PNWHC3 11:09
PROVIDERS: ATTEND Specialist
DX: K66.0 Peritoneal adhesions (postprocedural) (postinfection) (principal); Z91.040 Latex allergy status; Z88.8 Allergy status to other drugs, medicaments and biological substances; Z88.6 Allergy status to analgesic agent; F12.90 Cannabis use, unspecified, uncomplicated; Z87.891 Personal history of nicotine dependence; Z98.890 Other specified postprocedural states
CPT/HCPCS: 99212

== ENCOUNTER → 2025-03-18 | Outpatient (CLI) | payer OTHER ==
[2025-03-18 13:51] LABS: INR 0.9 (<1.2); Partial Thromboplastin Time 23.2 sec (22.0-30.0); Prothrombin Time 10.4 sec (10.0-12.5)
[2025-03-18 18:26] LABS: HCT 36.1 % (37.2-46.3); HGB 11.5 g/dL (12.0-15.0); MCH 29.6 pg (27.0-32.0); MCHC 31.9 g/dL (32.0-37.0); MCV 93.0 FL (80.0-97.0); NRBC Per 100 WBC 0 X 10*3/uL (0.00-0.01); Platelet Count 477 X 10*3/uL (140-440); RBC 3.88 X 10*6/uL (4.10-5.20); RDW 13.3 % (11.5-14.5); WBC 8.25 X 10*3/uL (4.50-10.00)
[2025-03-18 19:07] LABS: Prealbumin 17.9 mg/dL (18.0-42.0)
[2025-03-18 19:29] LABS: Cholesterol 149.00 mg/dL (0.00-200.00); HDL Cholesterol 59.20 mg/dL (40.00-60.00); Magnesium 1.7 mg/dL (1.5-2.4); Triglycerides 77.90 mg/dL (0.00-149.00); VLDL Calculation 15.58 mg/dL (5.00-40.00)
[2025-03-18 19:30] LABS: ALT 17 U/L (8-44); AST 18 U/L (13-35); Albumin 4.1 g/dL (3.8-4.9); Albumin/Globulin Ratio 1.64 Ratio (1.60-3.17); Alkaline Phosphatase 76 U/L (41-126); Anion Gap 12.10 mmol/L (4.00-12.00); BUN/Creat Ratio 8.62 Ratio (12.00-20.00); Blood Urea Nitrogen 6.9 mg/dL (9.0-27.0); Calcium 9.5 mg/dL (8.7-10.3); Carbon Dioxide 25.9 mmol/L (21.6-31.8); Chloride 102 mmol/L (96-109); Ferritin 156.0 ng/mL (10.0-291.0); Globulin 2.5 g/dL (1.6-3.3); Glucose 115 mg/dL (70-110); Iron 37 UG/DL (50-170); LDL Cholesterol,Calculated 74.2 mg/dL (0.0-131.0); Potassium 4.2 mmol/L (3.5-5.5); Sodium 140 mmol/L (135-145); Total Iron Binding Capacity 287 UG/DL (228-460); Total Protein 6.6 g/dL (6.2-8.2); Vitamin B12 361.0 pg/mL (200.0-944.0)
== END | disposition home or self-care (01) ==
LOC: LABWHC1 13:20
PROVIDERS: ATTEND Surgery Plastic and Reconstructive Surgery
DX: E66.01 Morbid (severe) obesity due to excess calories (principal); E55.9 Vitamin D deficiency, unspecified; E44.1 Mild protein-calorie malnutrition; E45 Retarded development following protein-calorie malnutrition; E89.1 Postprocedural hypoinsulinemia; D50.8 Other iron deficiency anemias; D50.9 Iron deficiency anemia, unspecified; K91.2 Postsurgical malabsorption, not elsewhere classified; K74.1 Hepatic sclerosis; K50.90 Crohn's disease, unspecified, without complications; N19 Unspecified kidney failure; T56.894A Toxic effect of other metals, undetermined, initial encounter
CPT/HCPCS: 36415; 80053; 80061; 82306; 82525; 82607; 82728; 82746; 83036; 83540; 83550; 83735; 83970; 84100; 84134; 84255; 84425; 84443; 84590; 84630; 85027; 85610; 85730